=== PATIENT | female | born 1965 | race Caucasian/White ===

== ENCOUNTER 2020-01-25 15:13 | Emergency (ER) | payer OTHER ==
--- OUTSIDE RECORDS SUMMARY | 2020-01-25 15:19 | XMS REPORT ---
:1965 Author Organization eClinicalWorks Care Team Providers Name Role Phone Ruelas, Na Provider Role Unavailable Allergies No Known Allergies Problems Problem Type Condition Code Onset Dates Condition Statu s Problem Type 2 diabetes mellitus with E11.40 Active diabetic neuropathy, unspecified Problem Other chronic pain G89.29 Active Problem Sinus problem J34.9 Active Problem Acquired hypothyroidism E03.9 Acti ve Problem Depression F32.9 Active Problem Seizures R56.9 Active Problem Lumbar degenerative disc disease M51.36 Active Problem Gallstones K80.20 Active Problem Mixed hyperlipidemia E78.2 Active Problem Memory problem R41.3 Active Problem Depression with anxiety F41.8 Acti ve Problem Allergic rhinitis J30.9 Active Problem Essential hypertension I10 Activ e Problem Anxiety F41.9 Active Problem Diabetes E11.9 Active Problem Gastroesophageal reflux disease, K21.9 Active esophagitis presence not specified Problem Chronic obstructive pulmonary J44.9 Active disease, unspecified COPD type Problem Cigarette nicotine dependence with F17.219 Active nicotine-induced disorder Problem Varicose veins of bilateral lower I83.813 Active extremities with pain Problem Mixed stress and urge urinary N39.46 Active incontinence Problem Type 2 diabetes mellitus with E11.65 Active hyperglycemia Medications Medication Code System Code Instructions Start End Date Status Dos age Date Ursodiol [facility] 07993474350 250 MG Orally Nov 16, Active 1 ta blet Once a day 2019 with food Results No Known Results Summary Purpose eClinicalWorks Submission
--- OUTSIDE RECORDS SUMMARY | 2020-01-25 15:19 | XMS REPORT ---
:1965 Author Organization eClinicalWorks Care Team Providers Name Role Phone Ruelas, Jessa Provider Role Unavailable Allergies, Adverse Reactions, Alerts Substance Reaction Event Type N.K.D.A. Info Not Available Non Drug Allergy Problems Problem Type Condition Code Onset Dates Condition Statu s Assessment Lumbar degenerative disc disease M51.36 Active Assessment Gallstones K80.20 Active Assessment Other chronic pain G89.29 Active Assessment Left hip pain M25.552 Active Assessment Low back pain M54.5 Active Assessment Mixed stress and urge urinary N39.46 Active incontinence Assessment Acquired hypothyroidism E03.9 Acti ve Assessment Chronic obstructive pulmonary J44.9 Active disease, unspecified COPD type Assessment Recurrent boils L02.93 Active Problem Varicose veins of bilateral lower I83.813 Active extremities with pain Assessment Depression with anxiety F41.8 Acti ve Problem Type 2 diabetes mellitus with E11.65 Active hyperglycemia Assessment Type 2 diabetes mellitus with E11.65 Active hyperglycemia Problem Type 2 diabetes mellitus with E11.40 Active diabetic neuropathy, unspecified Problem Other chronic pain G89.29 Active Problem Sinus problem J34.9 Active Problem Acquired hypothyroidism E03.9 Acti ve Problem Seizures R56.9 Active Problem Depression F32.9 Active Problem Lumbar degenerative disc disease M51.36 Active Assessment Type 2 diabetes mellitus with E11.40 Active diabetic neuropathy, unspecified Problem Gallstones K80.20 Active Problem Mixed hyperlipidemia [...] dependence with F17.219 Active nicotine-induced disorder Problem Mixed stress and urge urinary N39.46 Active incontinence Medications Medication Code Code Instructions Start End Status Dosage System Date Date Nebulizer Air [facility] 63390391919 - use every 8 Feb 03, Active as directed Tube/Plugs hours as needed 2019 Keflex [facility] 30958475684 500 MG Orally Nov Active 1 caps ule every 12 hrs 2019 Celecoxib ND 22176727630 200 MG Orally Active 1 ca psule Once a day with food Pantoprazole [facility] 52874013875 40 MG Active TAKE 1 TABLET Sodium BY MOUTH EVERY DAY Albuterol ND 48576693259 (2.5 MG/3ML) Active 3 ml as Sulfate 0.083% needed Inhalation every 8 hrs Levothyroxine ND 61579694959 75 MCG Orally Active 1 tablet in Sodium Once a day the morning on an empty stomach Triamcinolone ND 14429130890 0.5 % Apr 23, Active 1 appl ication Acetonide Externally 2019 to affected Twice a day area Janumet [facility] 71059297973 50-1000 MG Active 1 tablet with Orally Twice a meals day BusPIRone HCl ND 76872065611 15 MG Orally Active 1 tablet Twice a day Ursodiol [facility] 01807322540 300 MG Orally Active as di rected Once a day Gabapentin ND 59721611635 300 MG Orally Active 1 c apsule twice a day Aspir-Low ND 39282506900 81 MG Orally Active 1 tab let Once a day Oxybutynin ND 10803432958 5 MG Orally Active 1 tab let Chloride Twice a day Levothyroxine [facility] 18883703471 75 MCG Active TAKE 1 TABLET Sodium BY MOUTH EVERY DAY IN THE MORNING ON AN EMPTY STOMACH Trintellix [facility] 50953465296 20 MG Orally Active 1 ta blet Once a day Bactrim DS [facility] 95533880273 800-160 MG Nov Active 1 tabl et Orally Twice a 2019 Ursodiol ND 16326507121 250 MG Orally [place] Active 1 tab let with Once a day 2019 Ursodiol ND 56676346947 250 MG Orally Nov Active 1 tab let with Once a day 2019 Results No Known Results Summary Purpose eClinicalWorks Submission
--- OUTSIDE RECORDS SUMMARY | 2020-01-25 15:19 | XMS REPORT | Continuity of Care Document ---
:1965 Author Organization [facility] t Address [address] [place] [address] Care Team Providers Name Role Phone Unavailable Unavailable Unavailable Problems This patient has no known problems. Allergies, Adverse Reactions, Alerts This patient has no known allergies or adverse reactions. Medications Ordered Filled Start Stop Current Ordering Indication Dosage Frequency Signature Comments Components Source Medication Medication Date Date Medication? Clinician (SIG) Name Name Keflex Keflex 2020- Yes Na Ruelas [address] [facility] Bactrim DS Bactrim DS 2019- Yes Na Ruelas [address] [facility] Ursodiol Ursodiol Yes Na Ruelas [address] [facility] with food [facility] Triamcinolo Triamcinolo Yes Na Ruelas [address] [facility] ne ne 2-14 applicatio [facility] - Acetonide Acetonide 00:00: n to Mem [facility] 00 affected l area Outpati ent Clinics Nebulizer Nebulizer Yes Na Ruelas as [facility] Air Air [facility]-03 directed [facility] - Tube/Plugs Tube/Plugs 00:00: M [facility] 00 [facility] Celecoxib Celecoxib Yes Na Ruelas [address] [facility] food [facility] Pantoprazol Pantoprazol Yes Na Ruelas TAKE [address] [facility] e Sodium e Sodium TABLET BY Nithya kes - MOUTH [facility] EVERY DAY [facility] Albuterol Albuterol Yes Na Ruelas [address] [facility] Sulfate Sulfate needed [facility] Levothyroxi Levothyroxi Yes Na Ruelas TAKE [address] [facility] ne Sodium ne Sodium TABLET BY [facility] - MOUTH [facility] EVERY DAY l IN THE Outpati MORNING ON ent AN EMPTY Clinics STOMACH Janumet Janumet Yes Na Ruelas [address] [facility] with meals [facility] BusPIRone BusPIRone Yes Na Ruelas [address] [facility] HCl HCl [facility] Ursodiol Ursodiol Yes Na Ruelas as [facility] directed [facility] Gabapentin Gabapentin Yes Na Ruelas [address] [facility] Aspir-Low Aspir-Low Yes Na Ruelas [address] [facility] Oxybutynin Oxybutynin Yes Na Ruelas [address] [facility] Trintellix Trintellix Yes Na Ruelas [address] [facility] Immunizations Ordered Filled Immunization Date Status Comments [facility] e Immunization Name Name Fluzone Fluzone 2019-04-[address] [facility] Procedures This patient has no known procedures. Encounters Start End Encounter Admission Attending Care Care Encounter Source Date/Time Date/Time Type Type Clinicians Facility Department ID 2020-01-14 2020-01-14 [id number] 2019-11-23 2019-11-23 Outpatient Ravinder Castro [id number] [facility] 11:00:00 11:00:00 [facility] [employer] [facility] 2019-11-16 2019-11-16 Outpatient Ravinder Castro [id number] [facility] 09:52:00 09:52:00 [facility] [employer] [facility] 2019-08-30 2019-08-30 Outpatient Ravinder [place] [id number] [facility] 08[facility]49[facility] [place] Clin[facility] 2019-08-18 2019-08-18 [facility] [id number] [facility] 09:40:00 09:40:[facility] t [employer] [facility] - [facility] Medicine Outpati ent Clinics 2019-08-10 2019-08-10 [facility] [id number] [facility] 14:31:00 14:31:00 t [employer] [facility] [place] [facility] Medicine Outpati ent Clinics 2019-08-07 2019-08-07 [facility] [id number] [facility] 07:31:00 07:31:00 t [employer] [facility] [place] [facility] Medicine Outpati ent Clinics 2019-08-06 2019-08-06 [facility] [id number] [facility] 09:20:00 09:20:00 t [employer] [facility] [place] [facility] Medicine Outpati ent Clinics 2019-04-30 2019-04-30 [facility] [id number] [facility] 16:02:00 16:02:00 t [employer] [facility] [place] [facility] Medicine Outpati ent Clinics 2019-04-15 2019-04-15 [facility] [id number] [facility] 10:26:00 10:26:00 t [employer] [facility] [place] [facility] Medicine Outpati ent Clinics 2019-04-12 2019-04-12 [facility] [id number] [facility] 09:27:00 09:27:00 t [employer] [facility] Medicine Outpati ent Clinics 2019-04-02 2019-04-02 [facility] [id number] 08:40:00 08:40:00 t [employer] [facility] Outpat[facility] ent Clinics 2019-04-01 2019-04-01 [facility] [id number] [facility] 11:20:00 11:20:00 t [employer] [facility] [place] [facility] Outpati ent Clinics Results This patient has no known results.
--- OUTSIDE RECORDS SUMMARY | 2020-01-25 15:19 | XMS REPORT ---
:[address] [facility] Address [address] [place] [address] Care Team Providers Name Role Phone Jessa Ruelas Unavailable [phone] PROBLEMS Type Condition ICD9-CM NCR75-YR Onset Condition SNOMED Code Notes Code Code Dates Status Problem Essential I10 Active 68514686 hypertension Problem Allergic rhinitis J30.9 Active 59866787 Problem Mixed stress and N39.46 Active 094768696 urge urinary incontinence Problem Cigarette nicotine F17.219 Active 60905035 dependence with nicotine-induced disorder Problem Chronic J44.9 Active 19157715 obstructive pulmonary disease, unspecified COPD type Problem Gastroesophageal K21.9 Active 078920686 reflux disease, esophagitis presence not specified Problem Type 2 diabetes E11.65 Active 490274404007834 mellitus with hyperglycemia Problem Varicose veins of I83.813 Active 41755394 bilateral lower extremities with pain Problem Other chronic pain G89.29 Active 58492759 Problem Mixed E78.2 Active 080032794 hyperlipidemia Problem Gallstones K80.20 Active 975356215 Problem Lumbar M51.36 Active 20028653 degenerative disc disease Problem Sinus problem J34.9 Active Problem Anxiety F41.9 Active 63343877 Problem Acute bronchitis, J20.9 Active 51132480 unspecified organism Problem Type 2 diabetes E11.40 Active 24971662 mellitus with diabetic neuropathy, unspecified Problem Depression F32.9 Active 16912040 Problem Diabetes E11.9 Active 443095229 Problem Depression with F41.8 Active 346331790 anxiety Problem Memory problem R41.3 Active 612477580 Problem Seizures R56.9 Active 02152221 Problem Acquired E03.9 Active 359650347 hypothyroidism ALLERGIES No Known Allergies ENCOUNTERS from 1965 to 2020-01-23 Encounter Location Date Provider Diagnosis [facility] [address], Jessa Rees te bronchitis, Family Medicine [address], [place] [address] J20.9 ; Allerg ic rhinitis J30.9 ; Chronic obstruc tive pulmonary disea se, unspecified [employer] D type J44.9 and Cigar ette nicotine depend ence with nicotine-i nduced disorder F17.21 9 IMMUNIZATIONS Vaccine Route Administration Date Status Fluzone IM Intramuscular Apr 02, 2019 Administered SOCIAL HISTORY Tobacco Use: Social History Observation Description Date Details (start date - stop date) Current Smoker Sex Assigned At : Social History Observation Description Sex Assigned At Unknown PHQ9 Question Answer Notes Little interest or pleasure in doing things Several days Feeling down, depressed, or hopeless More than half the days Trouble falling or staying asleep or sleeping too much Sever al days Feeling tired or having little energy Nearly every day Poor appetite or overeating Several days Feeling bad about yourself, or that you are a failure, Sever al days or have let yourself or your family down Trouble concentrating on things, such as reading the Several days newspaper or watching television Moving or speaking so slowly that other people could Not at all have noticed; or the opposite, being so fidgety or restless that you have been moving around a lot more than usual Total Score 10 Interpretation Moderate Depression Thoughts that you would be better off or of Not at all hurting yourself in some way Tobacco Use/Smoking Question Answer Notes Are you a current smoker How many cigarettes a day do you smoke? 11-20 How often do you smoke cigarettes? every day REASON FOR REFERRAL No Information VITAL SIGNS No information MEDICATIONS Medication SIG (Take, Route, Start Date End Date Status Frequency, Duration) Aspir-Low 81 MG 1 tablet Orally Once a Ac tive day for 30 day(s) Oxybutynin Chloride 5 MG 1 tablet Orally Twice a Active day for 90 days Nebulizer Air Tube/Plugs as directed use every 8 Apr, Not-Taking - hours as needed for 90 days Ursodiol 300 MG as directed Orally Once A ctive a day for 90 days BusPIRone HCl 15 MG 1 tablet Orally Twice a Active day for 90 days Gabapentin 300 MG 1 capsule Orally twice Active a day for 90 days Levothyroxine Sodium 75 1 tablet in the morning Active MCG on an empty stomach Orally Once a day for 90 days Flonase 50 MCG/ACT 2 spray in each nostril Jan, Active Nasally Once a day for 30 day(s) Ursodiol 250 MG 1 tablet with food Nov, Active Orally Once a day for 30 day(s) Trintellix 20 MG 1 tablet Orally Once a A ctive day for 90 days Pantoprazole Sodium 40 MG TAKE 1 TABLET BY MOUTH Active EVERY DAY for 90 Albuterol Sulfate (2.5 3 ml as needed Act patt MG/3ML) 0.083% Inhalation every 8 hrs for 90 days PredniSONE 20 MG 2 tablets dailyx 5 days Jan, Jan, Active then 1 tablet daily x 5 days Orally for 10 day(s) Celecoxib 200 MG 1 capsule with food Acti ve Orally Once a day for 90 days Levothyroxine Sodium 75 TAKE 1 TABLET BY MOUTH Active MCG EVERY DAY IN THE MORNING ON AN EMPTY STOMACH for 90 Triamcinolone Acetonide 1 application to Apr, Active 0.5 % affected area Externally Twice a day for 7 day(s) Janumet 50-1000 MG 1 tablet with meals Ac tive Orally Twice a day for 90 days Cetirizine HCl 10 MG 1 tablet Orally Once a Jan, Active day in AM for 90 day(s) Ursodiol 250 MG 1 tablet with food Aug, Active Orally Once a day for 90 days PROCEDURES No Information RESULTS No Results REASON FOR VISIT Congestion , allergies, current smoker, Telephone Only Visit MEDICAL (GENERAL) HISTORY Type Description Date Medical History Allergic rhinitis Medical History Depression Medical History Gallstones Medical History Memory problem Medical History Anxiety Medical History Diabetes Medical History Seizures Medical History Sinus problem Surgical History frontal lobe contusion 1992 Surgical History gallbladder removed 1995 Surgical History breast reduction 1996 Surgical History heel spur removed 1999 Surgical History plastic surgery on left ear 1993 Goals Section No Information Health Concerns No Information MEDICAL EQUIPMENT No Information MENTAL STATUS No Information FUNCTIONAL STATUS No Information ASSESSMENTS Encounter Date Diagnosis Notes Jan, Chronic obstructive pulmonary disease, u nspecified COPD type (ICD-10 - J44.9) Jan, Allergic rhinitis (ICD-10 - J30.9) Jan, Cigarette nicotine dependence with nicot ine-induced disorder (ICD-10 - F17.219) Jan, Acute bronchitis, unspecified organism ( ICD-10 - J20.9) PLAN OF TREATMENT Medication Medication Name Sig Start Date Stop Date PredniSONE 20 MG 2 tablets dailyx 5 days then 1 tablet Jan, 020 Jan, daily x 5 days Orally for 10 day(s) Flonase 50 MCG/ACT 2 spray in each nostril Nasally Once a Jan day for 30 day(s) Cetirizine HCl 10 MG 1 tablet Orally Once a day in AM for Jan 90 day(s) Treatment Notes Assessment Notes Clinical Notes Acute bronchitis, unspecified Take any cough medications giv en as organism prescribed. Take otc mucinex to help loosen an chest congestion and take with plenty of water. Use cool mist vaporizer/inhaler/or nebulizer as directed.See educational handout . Allergic rhinitis Allergies- avoid triggers. Use zyrtec or claritin otc once daily in AM to help control watery itchy eyes and runny nose. Use Flonase nasal spray two sprays once a day to help decrease inflammation and decrease nasal drainage/post nasal drip. Use saline nasal mist or irrigation as directed. Chronic obstructive pulmonary continue current inhalers/ disease, unspecified COPD type nebulizer . if you develop so b or cough with increase phlegm or sputum changes from clear to yellow or green or develop fever above 100.4F call PCP or go to ER. Quit smoking and avoid exacerbating factors including second hand smoke or fumes. Cigarette nicotine dependence with recommend smoking cessati on/ nicotine-induced disorder cutting back to decrease risk of lung cancer, bladder cancer and improved breathing and decrease risk of heart disease. Consider tyring nicotine patches, gum or lonzenges. Also consider prescription chantix to help you quit.-- Greater than 3 minutes was spend counseling patient on importance and benefits of quitting smoking. Next Appt Details keep next appt Reason: Provider Name:Jessa Ruelas 2020-02-17 08:3 0:00 AM, [address], [place], [address], Provider Name:Jessa Ruelas 2020-02-22 11:2 0:00 AM, [address], [place], [address], Insurance Providers Payer Name Payer Address Payer Insured Patient Coverage Cover age End Phone Name Relationship to Start Date Ravinder e Insured [employer] [address] [address] [phone] Brandee Rajan 2019 [place]IC[place] [id number] MEDICAID [address] [phone] Brandee Rajan 2018 [facility] 126 [phone]
[2020-01-25] MEDS ORDERED: NA CHLORIDE 0.9% 1,000 ML ONE (18:05)
[2020-01-25 18:06] LABS: Absolute Lymphocytes (CBC) 2.8 K/uL (0.7-4.9); Basophils % 0.6 % (0-1.3); Hematocrit 45.9 % (36.0-45.0); Lymphocytes % 16.1 % (15.3-44.8); MPV 10.1 fL (7.6-11.3); RBC Red Blood Cell Count 5.15 M/uL (3.86-4.86)
[2020-01-25] MEDS ORDERED: LIDOCAINE 1% 20 ML MDV ONE (18:07)
[2020-01-25 18:24] LABS: Potassium 3.9 mmol/L (3.5-5.1)
[2020-01-25] MEDS ORDERED: INSULIN -REGULAR HUMAN 50 UNIT/0.5 ML ML ONE (18:55)
[2020-01-25] MEDS ORDERED: LIDOCAINE 1% W/EPI 1:100,000 MDV 20 ML VIAL ONE (19:18)
[2020-01-25] MEDS ORDERED: CLINDAMYCIN 900MG/D5W 900 MG/50 ML IVPB IV ONE (19:26)
--- NOTE | 2020-01-25 19:47 | EDPHYS ---
Physician Documentation [facility] Name: Brandee Rajan Age: 54 yrs Sex: Female : 1965 Arrival Date: 01/25/2020 Time: 15:15 Bed 6 Private MD: ED Physician Chauncey Howell HPI: 01/24 17:20 This 54 yrs old Female presents to ER via Ambulatory with complaints of jmm Abscess. 17:20 The patient presents with an abscess of the groin. Onset: The symptoms/episode jmm began/occurred gradually. Possible cause(s): unknown. Associated signs and symptoms: Pertinent positives: swelling, Pertinent negatives: fever. Modifying factors: the symptoms are alleviated by nothing, the symptoms are aggravated by nothing. This is a 54 year old female with a history of dm, that presents to the ED with complaints of multiple abscess in the groin. Denies fever. Patient states she was prescribed an abx which offered transient relief. . 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 - Social history:: Smoking status: Patient reports the use of cigarette tobacco products, smokes one pack cigarettes per day. ROS: 17:20 Constitutional: Negative for fever, chills, and weight loss, Cardiovascular: Negative jmm for chest pain, palpitations, and edema, Respiratory: Negative for shortness of breath, cough, wheezing, and pleuritic chest pain. 17:20 Skin: Positive for abscess. 17:20 All other systems are negative. Exam: 17:20 Constitutional: This is a well developed, well nourished patient who is awake, alert, jmm and in no acute distress. Head/Face: atraumatic. Eyes: EOMI, no conjunctival erythema appreciated ENT: Moist Mucus Membranes Neck: Trachea midline, Supple Chest/axilla: Normal chest wall appearance and motion. Cardiovascular: Regular rate and rhythm. No edema appreciated Respiratory: Normal respirations, no respiratory distress appreciated Abdomen/GI: Non distended, soft Back: Normal ROM 17:20 Skin: multiple abscess nonfluctuant noted to the suprapubic region, a small fluctuant abscess noted to the right thigh. 17:20 Neuro: Orientation: is normal, Mentation: is normal, Memory: is normal. 17:20 Psych: Behavior/mood is pleasant, cooperative. Vital Signs: 15:45 BP 141 / 80; Pulse 89; Resp 17; Temp 97.0; Pulse Ox 99% ; Weight 92.99 kg; Height 5 ft. ss 4 in. (162.56 cm); Pain 8/10; 18:00 BP 132 / 78; Pulse 86; Resp 18; Pulse Ox 99% on R/A; ph 19:00 BP 130 / 80; Pulse 84; Resp 18; Pulse Ox 99% on R/A; zb 15:45 Body Mass Index 35.19 (92.99 kg, 162.56 cm) ss Procedures: 19:44 I \T\ D: Incision and drainage was performed for an abscess of the right groin Prepped [facility] with Betadine, Anesthetized with 5 ml's 1% Lidocaine. Incised with #11 blade. Drained small amount purulent fluid. Packed with iodoform gauze, Dressing: sterile 4x4 gauze, the patient tolerated the procedure well. MDM: 17:20 Patient medically screened. [facility] 19:44 Data reviewed: vital signs, nurses notes. Counseling: I had a detailed discussion with [facility] the patient and/or guardian regarding: the historical points, exam findings, and any diagnostic results supporting the discharge/admit diagnosis, lab results, the need for outpatient follow up, to return to the emergency department if symptoms worsen or persist or if there are any questions or concerns that arise at home. ED course: Patient is alert and non toxic in appearance in the ED. Advised to follow up with pcp and otherwise given strict return precautions. Patient understood and agrees with the plan of care. . 01/24 17:30 Order name: CBC with Diff; Complete Time: 18:10 [facility] 01/24 17:30 Order name: BMP; Complete Time: 18:25 [facility] 01/24 17:30 Order name: Saline Lock; Complete Time: 17:59 [facility] Administered Medications: 17:59 Drug: NS 0.9% 1000 ml Route: IV; Rate: 1 bolus; Site: right antecubital; ph 19:55 Follow up: IV Status: Completed infusion rv 18:40 Drug: Insulin Regular Human 10 units {Co-Signature: ph (Kailey Hays RN).} Route: IVP; hb Site: right antecubital; 19:55 Follow up: Response: No adverse reaction; Blood sugar is lowered rv 18:42 Drug: Lidocaine (1 %) 20 ml Volume: 20 ml; Route: Infiltration; hb 18:52 Follow up: Response: No adverse reaction hb 19:13 Drug: Clindamycin 900 mg Route: IVPB; Infused Over: 30 mins; Site: right antecubital; ph 19:55 Follow up: IV Status: Completed infusion rv 19:53 Drug: DiFLUcan 150 mg Route: PO; rv 19:53 Follow up: Response: Medication administered at discharge. rv Disposition: 01/25 08:30 Co-signature as Attending Physician, Chauncey Howell MD I agree with the assessment and kdr plan of care. Disposition: 01/25/20 19:47 Discharged to Home. Impression: Cutaneous abscess of groin. - Condition is Stable. - Discharge Instructions: Skin Abscess, Incision and Drainage, Care After. - Prescriptions for Clindamycin HCl 300 mg Oral Capsule - take 1 capsule by ORAL route every 6 hours for 10 days; 40 capsule. Bactrim DS 800- 160 mg Oral Tablet - take 1 tablet by ORAL route every 12 hours for 10 days; 20 tablet. - Medication Reconciliation Form, Thank You Letter, Antibiotic Education, Prescription Opioid Use form. - Follow up: Private Physician; When: 2 - 3 days; Reason: Recheck today's complaints, Continuance of care, Re-evaluation by your physician. Signatures: Dispatcher [employer] [facility] Chauncey Howell MD MD kdr Mickail, Joel, PA PA jmm Smirch, Shelby, RN RN Kailey Hays RN RN Tamie Lee RN RN Henry Olivares RN RN Kailey Hays RN ph Corrections: (The following items were deleted from the chart) 01/24 19:55 19:47 01/25/2020 19:47 Discharged to Home. Impression: Cutaneous abscess of groin. rv Condition is Stable. Forms are Medication Reconciliation Form, Thank You Letter, Antibiotic Education, Prescription Opioid Use. Follow up: Private Physician; When: 2 - 3 days; Reason: Recheck today's complaints, Continuance of care, Re-evaluation by your physician. randym
--- NOTE | 2020-01-25 19:47 | ER ---
Nurse's Notes [facility] Name: Brandee Rajan Age: 54 yrs Sex: Female : 1965 Arrival Date: 01/25/2020 Time: 15:15 Bed 6 Private MD: Diagnosis: Cutaneous abscess of groin Presentation: 01/24 15:45 Chief complaint: Patient states: Abscesses to pelvic area, perineum for 1 week. Had one ss 2 weeks ago that she took antibiotics for. Some sites are draining. No fever. Coronavirus screen: Client denies travel out of the [place] in the last 14 days. congestion, cough unrelated to allergies, Client presents with at least one sign or symptom that may indicate coronavirus-19. Standard/surgical mask placed on the client. The client reports previous COVID testing was negative. Ebola Screen: Patient denies travel to an Ebola-affected area in the 21 days before illness onset. Initial Sepsis Screen: Does the patient meet any 2 criteria? No. Patient's initial sepsis screen is negative. Does the patient have a suspected source of infection? Yes: Skin breakdown/wound. Risk Assessment: Do you want to hurt yourself or someone else? Patient reports no desire to harm self or others. Onset of symptoms was January 18, 2020. 15:45 Method Of Arrival: Ambulatory ss 15:45 Acuity: ONELIA 3 ss ACCOUNTANT TAX: 17:40 LMP N/A - Post-menopause zb Historical: - Allergies: 15:49 No Known Allergies; ss - PMHx: 15:49 Diabetes - NIDDM; Head injury; ss - PSHx: 15:49 Cholecystectomy; ss - Immunization history:: Flu vaccine is up to date. - Social history:: Smoking status: Patient reports the use of cigarette tobacco products, smokes one pack cigarettes per day. Screenin:34 Abuse screen: Denies threats or abuse. Denies injuries from another. Nutritional ph screening: No deficits noted. Nutritional screening: No deficits noted. Tuberculosis screening: No symptoms or risk factors identified. Fall Risk None identified. Assessment: 17:33 General: Appears in no apparent distress. Behavior is calm, cooperative, appropriate zb for age. Neuro: Level of Consciousness is awake, alert, obeys commands, Oriented to person, place, time, situation. Cardiovascular: Capillary refill < 3 seconds in bilateral fingers. Respiratory: Airway is patent Respiratory effort is even, unlabored. GI: Abdomen is round obese, Abd is soft and non tender X 4 quads. : Reports incontinence. EENT: Derm: Skin is healthy with good turgor, Skin is pink, warm \T\ dry. Abscess located on groin is nickel sized, is red, is raised, x3 abscess. two dime size abscess on left pubic mons area and then arjun size on the right pubic mons area. Musculoskeletal: Circulation, motion, and sensation intact. 18:23 Reassessment: Patient appears in no apparent distress at this time. Patient and/or hb family updated on plan of care and expected duration. Pain level reassessed. Patient is alert, oriented x 3, equal unlabored respirations, skin warm/dry/pink. Vital Signs: 15:45 BP 141 / 80; Pulse 89; Resp 17; Temp 97.0; Pulse Ox 99% ; Weight 92.99 kg; Height 5 ft. ss 4 in. (162.56 cm); Pain 8/10; 18:00 BP 132 / 78; Pulse 86; Resp 18; Pulse Ox 99% on R/A; ph 19:00 BP 130 / 80; Pulse 84; Resp 18; Pulse Ox 99% on R/A; zb 15:45 Body Mass Index 35.19 (92.99 kg, 162.56 cm) ss ED Course: 15:15 Patient arrived in ED. as 15:48 Triage completed. ss 15:49 Arm band placed on. ss 17:18 Elias Watkins PA is PHCP. [facility] 17:19 Chauncey Howell MD is Attending Physician. [facility] 17:19 Patricia Armstrong, ARTHUR is Primary Nurse. zb 17:34 Patient has correct armband on for positive identification. Placed in gown. Bed in low ph position. Call light in reach. Pulse ox on. NIBP on. Door closed. Noise minimized. Warm blanket given. Head of bed. 17:45 Initial lab(s) drawn, by me, sent to lab. Inserted saline lock: 20 gauge in right ph antecubital area, using aseptic technique. Blood collected. 18:53 Assist provider with I \T\ D: of an abscess on right groin Set up I\T\D tray. Performed by sandra OLIVO Wound packed. iodoform gauze, Dressing with 4X4s, tape Patient tolerated well. Administered Medications: 17:59 Drug: NS 0.9% 1000 ml Route: IV; Rate: 1 bolus; Site: right antecubital; ph 19:55 Follow up: IV Status: Completed infusion rv 18:40 Drug: Insulin Regular Human 10 units {Co-Signature: ph (Kailey Hays RN).} Route: IVP; hb Site: right antecubital; 19:55 Follow up: Response: No adverse reaction; Blood sugar is lowered rv 18:42 Drug: Lidocaine (1 %) 20 ml Volume: 20 ml; Route: Infiltration; hb 18:52 Follow up: Response: No adverse reaction hb 19:13 Drug: Clindamycin 900 mg Route: IVPB; Infused Over: 30 mins; Site: right antecubital; ph 19:55 Follow up: IV Status: Completed infusion rv 19:53 Drug: DiFLUcan 150 mg Route: PO; rv 19:53 Follow up: Response: Medication administered at discharge. rv Outcome: 19:47 Discharge ordered by MD. peace 19:55 Patient left the ED. rv Signatures: Elias Watkins PA PA jmm Martinez, Amelia as Smirch, Shelby, RN RN Kailey Hays RN RN ph Tamie Lee RN RN Henry Olivares, RN RN Patricia Armstrong RN RN zb Kailey Hays RN ph
[2020-01-25] MEDS ORDERED: FLUCONAZOLE 100 MG TAB ONE (20:03)
[2020-01-26 04:15] VITALS: TEMP 97; O2SAT 99
[2020-01-26 04:18] VITALS: BP 130/80
== END 2020-01-25 19:55 | disposition home or self-care (01) ==
LOC: ER 15:13
PROC: 0J9C0ZZ Drainage of Pelvic Region Subcutaneous Tissue and Fascia, Open Approach (ICD-10-PCS; principal; 2020-01-25)
DX: L02.214 Cutaneous abscess of groin (principal); E11.9 Type 2 diabetes mellitus without complications; F17.210 Nicotine dependence, cigarettes, uncomplicated
CPT/HCPCS: 96365; 96361; 85025; 80048; 36415; 82947; 96375; 99284; 10060; J7030

== ENCOUNTER 2020-04-30 01:43 | Emergency (ER) | payer OTHER ==
--- OUTSIDE RECORDS SUMMARY | 2020-04-30 01:47 | XMS REPORT | Continuity of Care Document ---
:1965 Author Organization [facility] t Address [address] [place] [address] Care Team Providers Name Role Phone Unavailable Unavailable Unavailable Payers Payer Name Policy Type Policy Number Effective Date Expiration Date S ource Problems This patient has no known problems. Allergies, Adverse Reactions, Alerts Allergy Allergy Status Severity Reaction(s) Onset Inactive Treating Comm ents Source Name Type Date Date Clinician samantha DA Active [facility]- [place] 00:00: [address] ragweed DA [facility] pollen 04-06 [place] 00:00: [address] No Known DA Active [facility] 2019-[facility] Allergie - [place] s 00:00: [address] Medications Ordered Filled Start Stop Current Ordering Indication Dosage Frequency Signature Comments Components Source Medication Medication Date Date Medication? Clinician (SIG) Name Name Keflex Keflex 2020- No Na Ruelas [address] [facility] Bactrim DS Bactrim DS 2019- No Na Ruelas [address] [facility] 00 :00 [facility] Ursodiol Ursodiol Yes Na Ruelas [address] [facility] 9[facility]09 with food [facility] - 00:[facility]: [facility] 00 [facility] Triamcinolo Triamcinolo Yes Na Ruelas [address] [facility] ne ne 2-14 applicatio [facility] - Acetonide Acetonide 00:00: n to Mem oria 00 affected l area [facility] Nebulizer Nebulizer Yes Na Ruelas as [facility] Air Air 2-03 directed [facility] - Tube/Plugs Tube/Plugs 00:00: M emoria 00 l [facility] Celecoxib Celecoxib Yes Na Ruelas [address] [facility] with food [facility] Pantoprazol Pantoprazol Yes Na Ruelas TAKE [address] [facility] e Sodium e Sodium TABLET BY Nithya kes - MOUTH [facility] EVERY DAY l [facility] Albuterol Albuterol Yes Na Ruelas [address] [facility] Sulfate Sulfate needed [facility] Levothyroxi Levothyroxi Yes Na Ruelas TAKE [address] [facility] ne Sodium ne Sodium TABLET BY [facility] - MOUTH [facility] EVERY DAY l IN THE [facility] MORNING ON ent AN EMPTY Clinics STOMACH Janumet Janumet Yes Na Ruelas [address] with meals [facility] BusPIRone BusPIRone Yes Na Ruelas [address] [facility] HCl HCl [facility] Ursodiol Ursodiol Yes Na Ruelas as [facility] directed [facility] Gabapentin Gabapentin Yes Na Ruelas [address] [facility] Aspir-Low Aspir-Low Yes Na Ruelas [address] [facility] Oxybutynin Oxybutynin Yes Na Ruelas [address] [facility] Chloride Chloride [facility] Trintellix Trintellix Yes Na Ruelas [address] [facility] Immunizations Ordered Filled Immunization Date Status Comments Sourc e Immunization Name Name Fluzone Fluzone 2019-04-[address] [facility]00 [facility] Procedures This patient has no known procedures. Encounters Start End Encounter Admission Attending Care Care Encounter Source Date/Time Date/Time Type Type Clinicians Facility Department ID 2020-04-19 2020-04-19 Outpatient [facility] [id number] [facility] 2020-04-07 2020-04-07 Outpatient [facility] [id number] [facility] 2020-03-28 2020-03-28 Outpatient [facility] [id number] [facility] 2020-02-24 2020-02-24 Outpatient [facility] [id number] [facility] 2020-02-22 2020-02-22 Outpatient [facility] [id number] [facility] 2020-01-14 2020-01-14 Outpatient [facility] [id number] [facility] 2019-11-23 2019-11-23 [facility] [id number] [facility] 11:00:00 11:00:00 t [employer] s - Drive [facility] Outpati ent Clinics 2019-11-16 2019-11-16 [facility] [id number] 09:52:00 09:52:00 t [employer] s - Drive [facility] Out[facility] Clinics 2019-08-30 2019-08-30 [facility] [id number] 08:49:00 08:49:[address] [facility] [address] [employer] s - Road [facility] Medicine Outpati ent Clinics 2019-08-18 2019-08-18 [facility] [id number] 09:40:00 09:40:00 t [employer] s - Drive [facility] Medicine l Medicine Outpati ent Clinics 2019-08-10 2019-08-10 [facility] [id number] 14:31:00 14:31:00 t [employer] s - Drive [facility] Medicine Medicine Outpati ent Clinics 2019-08-07 2019-08-07 [facility] [id number] 07:31:00 07:31:00 t [employer] s - Drive [facility] Medicine Medicine Outpati ent Clinics 2019-08-06 2019-08-06 [facility] [id number] 09:20:00 09:20:00 t [employer] [employer] s - Drive [facility] Medicine l Medicine Outpati ent Clinics 2019-04-30 2019-04-30 [facility] [id number] 16:02:00 16:02:00 t Linden Lind[employer] s - Drive [facility] Medicine Medicine Outpati ent Clinics 2019-04-15 2019-04-15 [facility] [id number] 10:26:00 10:26:00 t [employer] s - Drive [facility] Medicine Medicine Outpati ent Clinics 2019-04-12 2019-04-12 [facility] [id number] 09:27:00 09:27:00 t [employer] Lind[employer] Zel[employer] s - Drive [facility] Medicine Medicine Outpati ent Clinics 2019-04-02 2019-04-02 [facility] [id number] 08:40:00 08:40:00 t [employer] s - Drive [facility] Medicine Medicine Outpati ent Clinics 2019-04-01 2019-04-01 [facility] [id number] 11:20:00 11:20:00 t [employer] s - Drive [facility] Medicine Medicine Outpati ent Clinics Results Test Description Test Time Test Comments Results Result Sourc e Comments - XR FLUORO FOR 2020-04-11 [facility]34[facility] 1965 Sex: F FAX: Luis Eisenberg MD [phone] [place]: St: REG Patient Name: SRINI JOSÉ Unit No: [id number] EXAMS: CPT CODE: [id number] XR FLUORO FOR SPINE INJ 39632 Location: T 18 INDICATION: ONELIA IMPRESSION: 12 seconds of intraoperative fluoroscopy provided for lumbar ONELIA. I was not present for or involved with the procedure or provided fluoroscopy. Please refer to the procedure note for details. Radiation dose 7 mGy (PSD). at 1434 Reported and signed by: Santino Golden M.D. CC: Luis Porter MD Dictated Date/Time: 04/11/2020 (2784)Technologist: Maurizio Perla Transcribed Date/Time: 04/11/2020 (1434) By: [email or web address] Orig Print D/T: S: 04/11/2020 (4581) JAY Treviño NAME: JOSÉ,SRINI [facility] PHYS: Luis Mora MD [address] [place], [place] [address]VD : 1965 AGE: 54 SEX: SARAH CHAVES [id number] LOC: MasterFlorinCHRISTINA PHONE #: [phone] EXAM DATE: 04/11/2020 STATUS: REG [facility] [place] [place] FAX #: [phone] RAD NO: DC Dt: PAGE 1 Signed Report GLUCOSE BEDSIDE TESTING 2020-04-11 11:35:00 Test Item Value Reference Range Interpretation Comme nts GLUCOSE BEDSIDE TESTING (test code = GLUBED) 189 MG/DL 70-119 H COVID Asymptomatic IH [id number] 12:52:00 Test Item Value Reference Interpretation Comments Range COVID Negative Negative A negative resu lt does not Asymptomatic IH preclude the SARS-COV-2 NTX (test code = viralinfect ion and should not COVNONPUINTX) be used as the sole basis forpatient umesh gement decisions. Nega tive results must becombined with clinical observations, p atient history, andepidemiologi lianna information. Vi ral levels in clinicalsamples below the detection limit of the assay could lead tone gative results. This test was p erformed using the Logix Smart TM COVID-19 PCRassay. This test was developed and i ts performancechar acteristics were determined by [facility]. Thi s test has notbeen FDA harjinder ared or approved. This test is authorized by t heFDA under Emergency Use Authorization(E UA). The EUA willremain in e ffect unless it is terminated o r revoked by FDA . Testing p arameters have not been valida debra for screeningasympt omatic patients. This test was validated accor ding to the FDA's guidanced ocument "Policy for Diagnostics testing in LaboratoriesCer tified to Perform High Co mplexity Testing under C JUAN ANTONIO". Specimen comments: PT IN PAT ROOM 3Specimen comments: PT IN PAT ROOM 3First test? UnknownEmployed inHealthcare? NoSymptomatic as defined by CDC? NoHospitalized due to COVID? NoIn ICU due to COVID? NoResident in a congregate care setting? No? NoAge at collection: YHCG SERUM [id number] 12:55:00 Test Item Value Reference Range Interpretation Comments HCG SERUM QUAL (test code = HCGQL) NEG SCREEN NEG Specimen comments: PT IN PAT ROOM 3Is this a LINE draw? NBASIC METABOLIC PANEL 2020-04-06 12:55:00 Test Item Value Reference Range Interpretation Comments SODIUM (test code = 140.0 mmol/L 133-144 N NA) POTASSIUM (test code 3.5 mmol/L 3.5-5.1 N = K) CHLORIDE (test code 106 mmol/L 95-105 H = CL) CARBON DIOXIDE (test 30 mmol/L 21-32 N code = CO2) ANION GAP (test code 4.0 GAP calc 4.0-15.0 N = GAP) GLUCOSE (test code = 157 MG/DL 70-110 H GLU) BLOOD UREA NITROGEN 10 MG/DL 7-18 N (test code = BUN) CREATININE (test 0.71 MG/DL 0.55-1.30 N Results may be code = CREAT) depressed if patient is takingN-Acetylc yste ine (NAC) and Metamizole (Dipyrone). CALCIUM (test code = 9.5 MG/DL 8.5-10.1 N CA) INDEX HEMOLYSIS 1 NORMAL <10 MG 1 NORMAL (test code = Index/DL HEMINDEX) INDEX ICTERIC (test 1 NORMAL <2 MG 1 NORMAL code = ICTINDEX) Index/DL INDEX LIPEMIA (test 1 NORMAL <50 MG 1 NORMAL code = LIPINDEX) Index/DL HGB [id number] 12:38:00 Test Item Value Reference Range Interpretation Comments RED BLOOD CELL (test code = RBC) 4.52 M/mm3 3.8-5.5 N HEMOGLOBIN (test code = HGB) 13.4 G/DL 10.6-15.8 N HEMATOCRIT (test code = HCT) 42.3 % 31.8-47.4 N MEAN CELL VOLUME (test code = MCV) 93.6 fL 80.1-101.1 N - XR CHEST 2 [id number] 12:21:00 [facility] : 1965 Sex: F FAX: Luis Eisenberg MD [phone] [place]: M St: PRE Patient Name: SRINI JOSÉ Unit No: [id number] EXAMS: CPT CODE: [id number] XR CHEST 2 V 23312 Site ID: [id number] HISTORY: Preoperative FINDINGS: The lungs are clear and normally expanded. The heart and pulmonary vasculature is normal. Osseous structures are unremarkable. IMPRESSION: Normal preoperative chest x-ray at 1221 Reported andsigned by: Santino Golden M.D. CC: Luis Porter MD Dictated Date/Time: 04/06/2020 (1221)Technologist: Smith Kamara Date/Time: 04/06/2020 (1221) By: [email or web address] Orig Print D/T: S: 04/06/2020 (7784) 508 Imaging NAME: SRINI JOSÉ [address] [place] [address] PHYS: Luis Mora MD [place], [place] : 1965 AGE: 54 SEX: F [id number] LOC: SHADI PHONE #: [phone] EXAM DATE: 04/06/2020 STATUS: PRE [facility] [place] [place] FAX #: [phone] RAD NO: DC Dt: PAGE 1 Signed ReportGLUCOSE BEDSIDE [id number] 07:49:00 Test Item Value Reference Range Interpretation Comments GLUCOSE BEDSIDE TESTING (test code 141 MG/DL 70-119 H = GLUBED) Novel Coronavirus 2019 [id number] 18:08:00 Test Item Value Reference Range Interpretation Comments Novel Coronavirus Not Detected Not Detected Testing wa s performed 2019 Inhouse (test using the Aptima code = COVNONPUI) SARS-CoV-2 assay.This nucleic acid amplification t est was developed and itsperformance characteristics determined by [facility]. Nucleic acid amplification t ests include PCRand TMA. This test has not be en FDA cleared or appr chintan.This test has been a uthorized by FDA under an Emergency UseAuthorizatio n (EUA). This test is on ly authorized fort he duration of joan e the declaration duncan t circumstancesex ist justifying the authorization o f the emergency use o fin vitro diagnostic test s for detection of SA RS-CoV-2 virusand/or frannie gnosis of COVID-19 infect ion under rslroag996(b)(1 ) of the Act, 21 U.S.C. 360bbb-3(b) (1) , unless theauthorizatio n is terminated or r evoked sooner.When frannie gnostic testing is nega tive, the possibility of afalse negative result should be considered i n the contextof a pat ient's recent exposure s and the presence ofclin ical signs and sympt oms consistent with COVID-19. Anind ividual without symptom s of COVID-19 and wh o is notshedding ADELAIDE S-CoV-2 virus would exp ect to have a negative (not detected) resul t in this assay.Performed At: [facility] [address] [id number] fady Gillis MD Ph:[phone] UR HCG [id number] 16:55:00 Test Item Value Reference Range Interpretation Comments UR HCG QUAL (test NEGATIVE NEG Very dilut e urines with a code = HCGQLU) low specific gravity may notcontain repr esentative levels of hCG. - XR CHEST 2 [id number] 16:55:00 [facility] : 1965 Sex: F FAX: Luis Eisenberg MD [phone] [place]: O St: PRE Patient Name: SRINI JOSÉ Unit No: [id number] EXAMS: CPT CODE: [id number] XR CHEST 2 V 19626 - XR CHEST 2 VLOCATION: T18 INDICATION:Preop, back pain The lungs are well expanded and free of infiltrates. The costophrenic recesses are sharp without effusion. The heart, mediastinum and bony structures are within normal limits. IMPRESSION: No active disease. at 1655 Reported and signed by: Zackery Argueta D.O. CC: Luis Porter MD Dictated Date/Time: 03/01/2020 (1654)Technologist: Hailey Phan Transcribed Date/Time: 03/01/2020 (1654) By: [email or web address] Orig Print D/T: S: 03/01/2020 (1657) [facility] NAME: ARNAVSRINI [facility] PHYS: Luis Mora MD [address] [place] [address] : 1965 AGE: 54 SEX: Diana TREVIÑO, SARAH [address] LOC: CARLEEN #: [phone] EXAM DATE: 03/01/2020 STATUS: PRE [facility] [place] [place] FAX #: [phone] RAD NO: DC Dt: PAGE 1 Signed ReportCOMPREHENSIVE METABOLIC [id number] 16:39:00 Test Item Value Reference Range Interpretation Comments SODIUM (test code = 140.0 mmol/L 133-144 N NA) POTASSIUM (test code 3.5 mmol/L 3.5-5.1 N = K) CHLORIDE (test code 105 mmol/L 95-105 N = CL) CARBON DIOXIDE (test 32 mmol/L 21-32 N code = CO2) ANION GAP (test code 3.0 GAP calc 4.0-15.0 L = GAP) GLUCOSE (test code = 140 MG/DL 70-110 H GLU) BLOOD UREA NITROGEN 6 MG/DL 7-18 L (test code = BUN) GLOMERULAR 103 estGFR >60 The estimated FILTRATION RATE glomerular (test code = GFR) filtration rate is computed usingpatient ra ce, age, sex, and s danial creatinine. If any of theneeded da ta elements are mi ssing the Laboratory can notcompute an estimation of t he glomerular filtration rate .The GFR value units = ml/min/1.73 met er squared. EstimatedGFR va lues above 60 should be interpreted as >60, not anexact number.--- DRUG DOSAGE ALERT -- - Drug dosage adjustments uti lize different calculationpara meter s. CREATININE (test 0.61 MG/DL 0.55-1.30 N Results may be code = CREAT) depressed if p atient is takingN-Acetylc ystei ne (NAC) and Metamizole (Dipyrone). TOTAL PROTEIN (test 7.2 G/DL 6.4-8.2 N code = PROT) ALBUMIN (test code = 3.5 G/DL 3.4-5.0 N ALB) ALBUMIN/GLOBULIN 0.9 RATIO 1.2-2.2 L RATIO (test code = A/G) CALCIUM (test code = 9.1 MG/DL 8.5-10.1 N CA) BILIRUBIN TOTAL 0.30 MG/DL 0.00-1.00 N (test code = BILT) BILIRUBIN DIRECT 0.12 MG/DL 0.00-0.30 N (test code = BILD) BILIRUBIN INDIRECT 0.18 MG/DL 0.2-1.3 L (test code = BILIND) SGOT/AST (test code 26 Unit/L 15-37 N = AST) SGPT/ALT (test code 51 Unit/L 12-78 N = ALT) ALKALINE PHOSPHATASE 97 Unit/L 45-117 N TOTAL (test code = ALKP) INDEX HEMOLYSIS 1 NORMAL <10 1 NORMAL (test code = MG Index/DL HEMINDEX) INDEX ICTERIC (test 1 NORMAL <2 MG 1 NORMAL code = ICTINDEX) Index/DL INDEX LIPEMIA (test 1 NORMAL <50 1 NORMAL code = LIPINDEX) MG Index/DL COMPREHENSIVE METABOLIC [id number] 16:34:00 Test Item Value Reference Range Interpretation Comments SODIUM (test code = NA) 140.0 mmol/L 133-144 N POTASSIUM (test code = K) 3.5 mmol/L 3.5-5.1 N CHLORIDE (test code = CL) 105 mmol/L 95-105 N CARBON DIOXIDE (test code 32 mmol/L 21-32 N = CO2) ANION GAP (test code = 3.0 GAP calc 4.0-15.0 L GAP) GLUCOSE (test code = GLU) 140 MG/DL 70-110 H BLOOD UREA NITROGEN (test 6 MG/DL 7-18 L code = BUN) CREATININE (test code = MG/DL 0.55-1.30 CREAT) TOTAL PROTEIN (test code G/DL 6.4-8.2 = PROT) ALBUMIN (test code = ALB) 3.5 G/DL 3.4-5.0 N ALBUMIN/GLOBULIN RATIO RATIO 1.2-2.2 (test code = A/G) CALCIUM (test code = CA) 9.1 MG/DL 8.5-10.1 N BILIRUBIN TOTAL (test MG/DL 0.00-1.00 code = BILT) BILIRUBIN DIRECT (test MG/DL 0.00-0.30 code = BILD) BILIRUBIN INDIRECT (test MG/DL 0.2-1.3 code = BILIND) SGOT/AST (test code = Unit/L 15-37 AST) SGPT/ALT (test code = Unit/L 12-78 ALT) ALKALINE PHOSPHATASE Unit/L 45-117 TOTAL (test code = ALKP) INDEX HEMOLYSIS (test 1 NORMAL <10 MG 1 NORMAL code = HEMINDEX) Index/DL INDEX ICTERIC (test code 1 NORMAL <2 MG 1 NORMAL = ICTINDEX) Index/DL INDEX LIPEMIA (test code 1 NORMAL <50 MG 1 NORMAL = LIPINDEX) Index/DL HGB [id number] 16:22:00 Test Item Value Reference Range Interpretation Comments RED BLOOD CELL (test code = RBC) 4.61 M/mm3 3.8-5.5 N HEMOGLOBIN (test code = HGB) 13.6 G/DL 10.6-15.8 N HEMATOCRIT (test code = HCT) 42.7 % 31.8-47.4 N MEAN CELL VOLUME (test code = MCV) 92.6 fL 80.1-101.1 N
--- NOTE | 2020-04-30 04:03 | EDPHYS ---
Physician Documentation [facility] Name: Brandee Rajan Age: 54 yrs Sex: Female : 1965 Arrival Date: 04/30/2020 Time: 01:45 Bed 2 Private MD: ED Physician Todd Chaudhry HPI: 04/30 02:11 This 54 yrs old Female presents to ER via Ambulatory with complaints of mh7 Swallowed Foreign Body, ACIDENTALLY INGESTED EARRINGS. 02:11 The patient or guardian reports the patient has a suspected foreign body, that has been mh7 ingested. The reported likely foreign body is piece of jewelry. Onset: The symptoms/episode began/occurred today, at 01:00. Treatment Prior to Arrival: none. 02:13 Current symptoms: coughing, foreign body sensation. Accidentally swallowed 2 earrings mh7 in the dark but thought she was taking her medication.. Historical: - Allergies: 02:04 No Known Allergies; mg2 - Home Meds: 02:04 levothyroxine oral [Active]; blood sugar meds [Active]; mg2 - PMHx: 02:04 Diabetes - NIDDM; Head injury; mg2 - PSHx: 02:04 Cholecystectomy; brain sx; mg2 - Immunization history:: Flu vaccine status is unknown. - Social history:: Smoking status: unknown. ROS: 02:13 Constitutional: Negative for fever, chills, and weight loss, Eyes: Negative for injury, mh7 pain, redness, and discharge, ENT: Negative for injury, pain, and discharge, Neck: Negative for injury, pain, and swelling, Cardiovascular: Negative for chest pain, palpitations, and edema. 02:13 Abdomen/GI: Negative for abdominal pain, nausea, vomiting, diarrhea, and constipation, Back: Negative for injury and pain, : Negative for injury, bleeding, discharge, and swelling, MS/Extremity: Negative for injury and deformity, Skin: Negative for injury, rash, and discoloration, Neuro: Negative for headache, weakness, numbness, tingling, and seizure, Psych: Negative for depression, anxiety, suicide ideation, homicidal ideation, and hallucinations, Allergy/Immunology: Negative for hives, rash, and allergies, Endocrine: Negative for neck swelling, polydipsia, polyuria, polyphagia, and marked weight changes, Hematologic/Lymphatic: Negative for swollen nodes, abnormal bleeding, and unusual bruising. 02:13 Respiratory: Negative for dyspnea on exertion, hemoptysis, orthopnea, pleurisy, shortness of breath, sputum production, wheezing. Exam: 03:59 Constitutional: This is a well developed, well nourished patient who is awake, alert, mh7 and in no acute distress. Head/Face: Normocephalic, atraumatic. Eyes: Pupils equal round and reactive to light, extra-ocular motions intact. Lids and lashes normal. Conjunctiva and sclera are non-icteric and not injected. Cornea within normal limits. Periorbital areas with no swelling, redness, or edema. ENT: Nares patent. No nasal discharge, no septal abnormalities noted. Tympanic membranes are normal and external auditory canals are clear. Oropharynx with no redness, swelling, or masses, exudates, or evidence of obstruction, uvula midline. Mucous membranes moist. Neck: Trachea midline, no thyromegaly or masses palpated, and no cervical lymphadenopathy. Supple, full range of motion without nuchal rigidity, or vertebral point tenderness. No Meningismus. Chest/axilla: Normal chest wall appearance and motion. Nontender with no deformity. No lesions are appreciated. Cardiovascular: Regular rate and rhythm with a normal S1 and S2. No gallops, murmurs, or rubs. Normal PMI, no JVD. No pulse deficits. Respiratory: Lungs have equal breath sounds bilaterally, clear to auscultation and percussion. No rales, rhonchi or wheezes noted. No increased work of breathing, no retractions or nasal flaring. Abdomen/GI: Soft, non-tender, with normal bowel sounds. No distension or tympany. No guarding or rebound. No evidence of tenderness throughout. Back: No spinal tenderness. No costovertebral tenderness. Full range of motion. Skin: Warm, dry with normal turgor. Normal color with no rashes, no lesions, and no evidence of cellulitis. MS/ Extremity: Pulses equal, no cyanosis. Neurovascular intact. Full, normal range of motion. Neuro: Awake and alert, GCS 15, oriented to person, place, time, and situation. Cranial nerves II-XII grossly intact. Motor strength 5/5 in all extremities. Sensory grossly intact. Cerebellar exam normal. Normal gait. Psych: Awake, alert, with orientation to person, place and time. Behavior, mood, and affect are within normal limits. Vital Signs: 02:01 BP 177 / 72; Pulse 81; Resp 18; Temp 97.9(TE); Pulse Ox 100% on R/A; Weight 96.62 kg tt3 (R); Height 5 ft. 4 in. (162.56 cm) (R); Pain 7/10; 03:00 BP 165 / 89; Pulse 89; Resp 15; Pulse Ox 98% ; rr5 04:00 BP 150 / 85; Pulse 80; Resp 17; Pulse Ox 99% ; rr5 02:01 Body Mass Index 36.56 (96.62 kg, 162.56 cm) tt3 MDM: 03:59 Data reviewed: vital signs, nurses notes, radiologic studies, plain films. Data [facility] interpreted: Pulse oximetry: on room air is 100 %. Interpretation: normal. Counseling: I had a detailed discussion with the patient and/or guardian regarding: the historical points, exam findings, and any diagnostic results supporting the discharge/admit diagnosis, the presence of at least one elevated blood pressure reading (>120/80) during this emergency department visit, radiology results, the need for outpatient follow up, to return to the emergency department if symptoms worsen or persist or if there are any questions or concerns that arise at home. Response to treatment: the patient's symptoms have resolved after treatment, the patient's blood pressure is in an acceptable range, mental status has returned to baseline, the patient no longer shows bradycardia, the patient is not short of breath, the patient is not tachycardic, the patient's pain is gone, the patient's temperature has normalized. 04:01 Patient medically screened. mh7 04/30 03:09 Order name: Abdomen Single View EDMS Administered Medications: No medications were administered Disposition: 04/30/20 04:01 Discharged to Home. Impression: Swallowed Foreign Body. - Condition is Stable. - Discharge Instructions: Swallowed Foreign Body, Adult, Mheh-op-Bghx. - Medication Reconciliation Form, Thank You Letter, Antibiotic Education, Prescription Opioid Use form. - Follow up: Private Physician; When: 1 - 2 days; Reason: Worsening of condition, Recheck today's complaints, Continuance of care, Re-evaluation by your physician. - Problem is new. - Symptoms have improved. Signatures: Dispatcher [employer] EDRI Pavel White, RN RN mg2 Sergio Abdalla RN RN rr5 Todd Chaudhry MD MD 7 Corrections: (The following items were deleted from the chart) 02:14 02:11 Current symptoms: none, mh7 [facility] 03:09 02:12 Abdomen Acute Series+RAD.RAD.BRZ ordered. EDRI EDRI 03:09 02:12 Chest Pa And Lat (2 Views)+RAD.RAD.BRZ ordered. [facility] EDRI 03:09 02:12 Neck Soft Tissue+RAD.RAD.BRZ ordered. [facility] 04:12 04:01 04/30/2020 04:01 Discharged to Home. Impression: Swallowed Foreign Body. rr5 Condition is Stable. Forms are Medication Reconciliation Form, Thank You Letter, Antibiotic Education, Prescription Opioid Use. Follow up: Private Physician; When: 1 - 2 days; Reason: Worsening of condition, Recheck today's complaints, Continuance of care, Re-evaluation by your physician. Problem is new. Symptoms have improved. 7
--- NOTE | 2020-04-30 04:03 | ER ---
Nurse's Notes [facility] Name: Brandee Rajan Age: 54 yrs Sex: Female : 1965 Arrival Date: 04/30/2020 Time: 01:45 Bed 2 Private MD: Diagnosis: Swallowed Foreign Body Presentation: 04/30 01:58 Chief complaint: Patient states: \T\ 0110 today i accidentally swallowed 2 different mg2 pairs of earrings because it was dark in my room i thought it was my night pills. i already coughed out the 2 different earrings and the rest feels like stucked on my throat. Coronavirus screen: Client denies travel out of the [place] in the last 14 days. At this time, the client does not indicate any symptoms associated with coronavirus-19. Ebola Screen: No symptoms or risks identified at this time. Initial Sepsis Screen: Does the patient meet any 2 criteria? No. Patient's initial sepsis screen is negative. Does the patient have a suspected source of infection? No. Patient's initial sepsis screen is negative. Risk Assessment: Do you want to hurt yourself or someone else? Patient reports no desire to harm self or others. Onset of symptoms was April 30, 2020. 01:58 Method Of Arrival: Ambulatory mg2 01:58 Acuity: ONELIA 4 mg2 Historical: - Allergies: 02:04 No Known Allergies; mg2 - Home Meds: 02:04 levothyroxine oral [Active]; blood sugar meds [Active]; mg2 - PMHx: 02:04 Diabetes - NIDDM; Head injury; mg2 - PSHx: 02:04 Cholecystectomy; brain sx; mg2 - Immunization history:: Flu vaccine status is unknown. - Social history:: Smoking status: unknown. Screenin:04 Abuse screen: Denies threats or abuse. Denies injuries from another. Nutritional rr5 screening: No deficits noted. Tuberculosis screening: No symptoms or risk factors identified. Fall Risk None identified. Total Marie Fall Scale indicates No Risk (0-24 pts). Assessment: 02:04 General: Appears in no apparent distress. comfortable, Behavior is calm, cooperative. mg2 Pain: Complains of pain in throat. Neuro: Level of Consciousness is awake, alert, obeys commands, Oriented to person, place, time, situation. Cardiovascular: Capillary refill < 3 seconds Patient's skin is warm and dry. Respiratory: Airway is patent Respiratory effort is even, unlabored, Respiratory pattern is regular, symmetrical. GI: No signs and/or symptoms were reported involving the gastrointestinal system. : No signs and/or symptoms were reported regarding the genitourinary system. EENT: Reports throat pain. Derm: Skin is intact, is healthy with good turgor, Skin is pink, warm \T\ dry. normal. Musculoskeletal: Circulation, motion, and sensation intact. Capillary refill < 3 seconds. 03:34 Reassessment: Patient appears in no apparent distress at this time. Patient and/or mg2 family updated on plan of care and expected duration. Pain level reassessed. Patient is alert, oriented x 3, equal unlabored respirations, skin warm/dry/pink. 04:10 Reassessment: Patient appears in no apparent distress at this time. Patient is alert, rr5 oriented x 3, equal unlabored respirations, skin warm/dry/pink. discharge instruction given and explained without complaint made. Vital Signs: 02:01 BP 177 / 72; Pulse 81; Resp 18; Temp 97.9(TE); Pulse Ox 100% on R/A; Weight 96.62 kg tt3 (R); Height 5 ft. 4 in. (162.56 cm) (R); Pain 7/10; 03:00 BP 165 / 89; Pulse 89; Resp 15; Pulse Ox 98% ; rr5 04:00 BP 150 / 85; Pulse 80; Resp 17; Pulse Ox 99% ; rr5 02:01 Body Mass Index 36.56 (96.62 kg, 162.56 cm) tt3 ED Course: 01:45 Patient arrived in ED. cf2 01:54 Todd Chaudhry MD is Attending Physician. mh7 01:58 Pavel White, ARTHUR is Primary Nurse. mg2 02:03 Triage completed. mg2 02:04 Arm band placed on. mg2 02:04 Patient has correct armband on for positive identification. Bed in low position. Call rr5 light in reach. Pulse ox on. NIBP on. 02:06 No provider procedures requiring assistance completed. Patient did not have IV access mg2 during this emergency room visit. 03:13 Abdomen Single View In Process Unspecified. EDMS Administered Medications: No medications were administered Outcome: 04:01 Discharge ordered by MD. lloyd 04:12 Patient left the ED. rr5 Signatures: Dispatcher [employer] EDMS Pavel White RN RN mg2 Sergio Abdalla RN RN rr5 Dionte Fontaine cf2 Todd Chaudhry MD MD mh7 Rayo Falcon tt3
[2020-04-30 05:10] VITALS: BP 177/72; TEMP 97.9; O2SAT 100
--- NOTE | 2020-04-30 08:01 | RAD REPORT ---
EXAM DESCRIPTION: RAD - Abdomen Single View - 04/30/2020 3:13 am CLINICAL HISTORY: swallowed foreign body COMPARISON: No comparisons FINDINGS: Frontal views of the neck, chest and abdomen were obtained spanning from alpha to pelvic f carin. Lung benson are clear. No air trapping or acute finding identifiable. No neck soft tissue abnormality identified. Bowel gas pattern is non-specific. No obstruction, free air or pneumatosis. No suspicio us calcifications. Cholecystectomy clips are seen in the right upper quadrant. Abdominal imaging is more limited due to film technique and soft tissue attenuation affects. Patient has an enlarged liver possibly due to Reidel lobe configuration. This can be evaluated further with o utpatient liver ultrasound. Radiopaque density is present in the midline upper abdomen superimposed on the L2 body. This is proba yi the ingested foreign body. No other foreign body identified. No free air or pneumatosis. IMPRESSION: Radiopaque foreign body density is present in the midline upper abdomen likely in the di stal body or antrum of the stomach. Neck and chest imaging shows no suspicious finding. Hepatomegaly is evident possibly a Reidel lobe configuration. Follow-up outpatient liver sonography c ould be performed for complete assessment.
== END 2020-04-30 04:12 | disposition home or self-care (01) ==
LOC: ER 01:43
DX: T18.2XXA Foreign body in stomach, initial encounter (principal); E11.9 Type 2 diabetes mellitus without complications
CPT/HCPCS: 74018; 99283

== ENCOUNTER 2020-12-31 15:58 | Emergency (ER) | payer OTHER ==
[2020-12-31 17:12] LABS: Hematocrit 37.8 % (36.0-45.0); Lymphocytes % 16.2 % (15.3-44.8); MPV 8.9 fL (7.6-11.3); RBC Red Blood Cell Count 4.32 M/uL (3.86-4.86)
--- NOTE | 2020-12-31 18:29 | RAD REPORT ---
EXAM DESCRIPTION: CTAbdomen Pelvis W Contrast - 12/31/2020 6:21 pm CLINICAL HISTORY: Abdominal pain. left sided abdominal pain COMPARISON: No comparisons TECHNIQUE: Biphasic CT imaging of the abdomen and pelvis was performed with 100 ml non-ionic IV cont rast. All CT scans are performed using dose optimization technique as appropriate and may include automated exposure control or mA/KV adjustment according to patient size. FINDINGS: The lung bases are clear. The liver, spleen, pancreas, left adrenal gland and kidneys are within normal limits. 18 mm right adr enal mass is present, probably an adenoma. Cholecystectomy clips. No bowel obstruction, free air, free fluid or abscess. Small fat containing umbilical hernia. The pedro endix is normal. No evidence of significant lymphadenopathy. Mild lumbosacral degenerative changes. IMPRESSION: No acute intra-abdominal or pelvic finding.
[2020-12-31 19:26] LABS: ALT/SGPT 73 U/L (12-78); AST/SGOT 134 U/L (15-37); Alkaline Phosphatase 93 U/L (45-117); BUN Blood Urea Nitrogen 5 mg/dL (7-18); Bicarbonate 30 mmol/L (21-32); Bilirubin Total 0.5 mg/dL (0.2-1.0); Glucose Level 109 mg/dL (74-106); Potassium 3.5 mmol/L (3.5-5.1); Protein, Total 7.7 g/dL (6.4-8.2); Sodium Level 142 mmol/L (136-145)
[2020-12-31 19:29] LABS: Albumin 3.3 g/dL (3.4-5.0); Bilirubin Direct 0.1 mg/dL (0-0.2); Lipase 45 U/L (73-393)
--- NOTE | 2020-12-31 19:36 | EDPHYS ---
Physician Documentation [facility] Name: Brandee Rajan Age: 55 yrs Sex: Female : 1965 Arrival Date: 12/31/2020 Time: 16:02 Bed 6 Private MD: Compa Rogel HPI: 12/31 16:49 This 55 yrs old Female presents to ER via Ambulatory with complaints of [facility] Abdominal Pain. 16:49 The patient presents with abdominal pain. Onset: The symptoms/episode began/occurred jm acutely, today. The symptoms do not radiate. Associated signs and symptoms: Pertinent negatives: nausea and vomiting, fever, shortness of breath, vomiting, vomiting blood. The symptoms are described as achy. Modifying factors: The symptoms are alleviated by nothing, the symptoms are aggravated by pressure. Patient states her dog kicked her in the left flank region. Patient states now having increased pain in the area. HX of cholecystectomy. . Historical: - Allergies: 16:25 No Known Allergies; ll1 - PMHx: 16:25 Diabetes - NIDDM; Head injury; frontal lobe contusion; thyroid problems; Pancreatitis; ll1 elevated liver enzymes; - PSHx: 16:25 Cholecystectomy; stone bile duct; ll1 - Immunization history:: Client reports having NOT received the Covid vaccine. - Social history:: Smoking status: Patient reports the use of cigarette tobacco products, smokes one pack cigarettes per day. ROS: 16:49 Constitutional: Negative for fever, chills, and weight loss, Cardiovascular: Negative jmm for chest pain, palpitations, and edema, Respiratory: Negative for shortness of breath, cough, wheezing, and pleuritic chest pain. 16:49 Abdomen/GI: Positive for abdominal pain. 16:49 All other systems are negative. Exam: 16:49 Constitutional: This is a well developed, well nourished patient who is awake, alert, jmm and in no acute distress. Head/Face: atraumatic. Eyes: EOMI, no conjunctival erythema appreciated ENT: Moist Mucus Membranes Neck: Trachea midline, Supple Chest/axilla: Normal chest wall appearance and motion. Cardiovascular: Regular rate and rhythm. No edema appreciated Respiratory: Normal respirations, no respiratory distress appreciated 16:49 Back: Normal ROM Skin: General appearance color normal MS/ Extremity: Moves all extremities, no obvious deformities appreciated, no edema noted to the lower extremities Neuro: Awake and alert, normal gait Psych: Behavior is normal, Mood is normal, Patient is cooperative and pleasant 16:49 Abdomen/GI: Inspection: abdomen appears normal, Bowel sounds: normal, Palpation: soft, mild abdominal tenderness, in the left upper quadrant. Vital Signs: 16:22 BP 184 / 80; Pulse 79; Resp 17; Temp 97.3; Pulse Ox 100% ; Weight 104.33 kg; Height 5 ll1 ft. 4 in. (162.56 cm); Pain 8/10; 16:37 BP 197 / 82; Pulse 73; Resp 14; Pulse Ox 97% on R/A; Pain 6/10; tw5 16:50 BP 177 / 67; Pulse 73; Resp 14; Pulse Ox 100% ; tw5 18:42 BP 184 / 75; Pulse 65; Resp 16; Pulse Ox 100% on R/A; Pain 8/10; tw5 19:25 BP 172 / 80; Pulse 68; Resp 18; Pulse Ox 99% on R/A; Pain 8/10; lp1 16:22 Body Mass Index 39.48 (104.33 kg, 162.56 cm) ll1 MDM: 16:42 Patient medically screened. [facility] 19:34 Data reviewed: vital signs, nurses notes. Counseling: I had a detailed discussion with nata the patient and/or guardian regarding: the historical points, exam findings, and any diagnostic results supporting the discharge/admit diagnosis, the need for outpatient follow up, to return to the emergency department if symptoms worsen or persist or if there are any questions or concerns that arise at home. 12/31 16:35 Order name: Basic Metabolic Panel; Complete Time: 19:34 [facility] 12/31 16:35 Order name: CBC with Diff; Complete Time: 17:19 [facility] 12/31 16:35 Order name: Hepatic Function; Complete Time: 19:34 [facility] 12/31 16:35 Order name: Lipase; Complete Time: 19:34 [facility] 12/31 17:45 Order name: CT Abd/Pelvis - IV Contrast Only; Complete Time: 18:30 [facility] 12/31 16:35 Order name: IV Saline Lock; Complete Time: 16:50 [facility] 12/31 16:35 Order name: Labs collected and sent; Complete Time: 16:50 [facility] Administered Medications: 19:25 Drug: Ketorolac 30 mg Route: IVP; Site: right wrist; lp1 19:45 Follow up: Response: No adverse reaction lp1 Disposition: 01/01 10:41 Co-signature as Attending Physician, Compa Harrington MD I agree with the assessment and cherie plan of care. Disposition Summary: 12/31/20 19:36 Discharge Ordered Location: Home jm Condition: Stable jmm Diagnosis - Abdominal pain, Generalized jmm Followup: [facility] - With: Private Physician - When: 2 - 3 days - Reason: Recheck today's complaints, Continuance of care, Re-evaluation by your physician Forms: - Medication Reconciliation Form [facility] - Thank You Letter [facility] - Antibiotic Education [facility] - Prescription Opioid Use [facility] Signatures: Dispatcher [employer] Compa Woodward MD MD cha Mickail, Joel, PA PA jmm Pena, Laura, RN RN lp1 Phill Larios RN RN ll1
--- NOTE | 2020-12-31 19:36 | ER ---
Nurse's Notes [facility] Name: Brandee Rajan Age: 55 yrs Sex: Female : 1965 Arrival Date: 12/31/2020 Time: 16:02 Bed 6 Private MD: Diagnosis: Abdominal pain, Generalized Presentation: 12/31 16:22 Chief complaint: Patient states: LUQ abd pain int. since Friday. Her dog jumped onto ll1 her abdomen today, pain since. No N/V/D. No fevers. Has had "allergies and cough", negative for flu/strep/covid. Coronavirus screen: Vaccine status: Patient reports being unvaccinated. Client denies travel out of the [place] in the last 14 days. congestion, cough unrelated to allergies, Client presents with at least one sign or symptom that may indicate coronavirus-19. Standard/surgical mask placed on the client. Ebola Screen: Patient denies travel to an Ebola-affected area in the 21 days before illness onset. Initial Sepsis Screen: Does the patient meet any 2 criteria? No. Patient's initial sepsis screen is negative. Does the patient have a suspected source of infection? Yes: Acute abdominal pain. Risk Assessment: Do you want to hurt yourself or someone else? Patient reports no desire to harm self or others. Onset of symptoms was December 27, 2020. 16:22 Method Of Arrival: Ambulatory 1 16:22 Acuity: ONELIA 3 ll1 Triage Assessment: 19:49 General: Appears in no apparent distress. Behavior is calm, cooperative, appropriate ms4 for age. Historical: - Allergies: 16:25 No Known Allergies; ll1 - PMHx: 16:25 Diabetes - NIDDM; Head injury; frontal lobe contusion; thyroid problems; Pancreatitis; ll1 elevated liver enzymes; - PSHx: 16:25 Cholecystectomy; stone bile duct; ll1 - Immunization history:: Client reports having NOT received the Covid vaccine. - Social history:: Smoking status: Patient reports the use of cigarette tobacco products, smokes one pack cigarettes per day. Screenin:37 Abuse screen: Denies threats or abuse. Denies injuries from another. Nutritional tw5 screening: No deficits noted. Tuberculosis screening: No symptoms or risk factors identified. Fall Risk None identified. Assessment: 16:37 General: " [place] to the beach, and my bull dog freaked out and jumped tw5 into the front seat and stepped on my side and it triggered a consistent pain.". Pain: Complains of pain in left upper quadrant and left lower quadrant Pain currently is 6 out of 10 on a pain scale. Quality of pain is described as aching. GI: Bowel sounds present X 4 quads. Abd is soft and non tender ' It didn't hurt a the moment' nursing staff asked if it hurt when pressor was applied. Bowring further explained that the pain comes and goes. 18:23 Reassessment: Recollect BMP sent to lab. Awaiting results. ss 18:42 General: ' I have been in pain!". Pain: Pain currently is 8 out of 10 on a pain scale. tw5 19:25 General: Appears uncomfortable. Pain: Complains of pain in left upper quadrant Pain lp1 currently is 8 out of 10 on a pain scale. Quality of pain is described as sharp. Neuro: Level of Consciousness is awake, alert, obeys commands, Oriented to person, place, time, situation. Cardiovascular: Patient's skin is warm and dry. Respiratory: Respiratory effort is even, unlabored. Derm: Skin is pink, warm \\T\\ dry. 19:25 Musculoskeletal: No deficits noted. lp1 Vital Signs: 16:22 BP 184 / 80; Pulse 79; Resp 17; Temp 97.3; Pulse Ox 100% ; Weight 104.33 kg; Height 5 ll1 ft. 4 in. (162.56 cm); Pain 8/10; 16:37 BP 197 / 82; Pulse 73; Resp 14; Pulse Ox 97% on R/A; Pain 6/10; tw5 16:50 BP 177 / 67; Pulse 73; Resp 14; Pulse Ox 100% ; tw5 18:42 BP 184 / 75; Pulse 65; Resp 16; Pulse Ox 100% on R/A; Pain 8/10; tw5 19:25 BP 172 / 80; Pulse 68; Resp 18; Pulse Ox 99% on R/A; Pain 8/10; lp1 16:22 Body Mass Index 39.48 (104.33 kg, 162.56 cm) ll1 ED Course: 16:02 Patient arrived in ED. ds1 16:25 Triage completed. ll1 16:33 Faviola Mackey is Primary Nurse. tw5 16:35 Elias Watkins PA is PHCP. [facility] 16:35 Compa Harrington MD is Attending Physician. [facility] 16:37 No apparent distress. Resting quietly. tw5 16:37 Patient has correct armband on for positive identification. Pulse ox on. NIBP on. Door tw5 closed. Noise minimized. Lights dimmed. Moved to private room. Verbal reassurance given. 16:50 Initial lab(s) drawn, by me, sent to lab. Inserted saline lock: 20 gauge in right tw5 wrist, using aseptic technique. 16:51 Basic Metabolic Panel Sent. tw5 16:51 CBC with Diff Sent. tw5 16:51 Hepatic Function Sent. tw5 16:51 Lipase Sent. tw5 16:52 CBC with Diff Sent. tw5 16:52 Lipase Sent. tw5 18:18 Lab(s) recollected, by me, sent to lab. dh3 18:21 CT Abd/Pelvis - IV Contrast Only In Process Unspecified. EDMS 18:31 Basic Metabolic Panel Sent. tw5 18:31 Hepatic Function Sent. tw5 18:32 Lipase Sent. tw5 19:49 No provider procedures requiring assistance completed. Patient did not have IV access ms4 during this emergency room visit. 19:50 Arm band placed on. ms4 Administered Medications: 19:25 Drug: Ketorolac 30 mg Route: IVP; Site: right wrist; lp1 19:45 Follow up: Response: No adverse reaction lp1 Outcome: 19:36 Discharge ordered by MD. [facility] 19:49 Discharged to home ambulatory. ms4 19:49 Condition: stable 19:49 Discharge instructions given to patient, Instructed on discharge instructions, follow up and referral plans. Demonstrated understanding of instructions, follow-up care. 19:51 Patient left the ED. ms4 Signatures: Dispatcher [employer] EDMS Elias Watkins PA PA jmm Sanford, Demi ds1 Luda Smith RN RN Henna Rajan RN RN 1 Nahed Suggs 3 Phill Larios RN RN 1 Mere Rocha RN RN ms4 Faviola Mackey tw5
[2020-12-31] MEDS ORDERED: KETOROLAC 30 MG/ML INJ ONE (19:44)
[2020-12-31 19:59] VITALS: TEMP 97.3
[2020-12-31 20:01] VITALS: O2SAT 100
[2020-12-31 20:03] VITALS: BP 184/75
== END 2020-12-31 19:51 | disposition home or self-care (01) ==
LOC: ER 15:58
DX: R10.84 Generalized abdominal pain (principal); E11.9 Type 2 diabetes mellitus without complications; F17.210 Nicotine dependence, cigarettes, uncomplicated
CPT/HCPCS: 85025; 80048; 36415; 82565; 80076; 83690; 74177; 96374; 99284; Q9967

== ENCOUNTER 2021-02-16 17:37 | Emergency (ER) | payer OTHER ==
--- OUTSIDE RECORDS SUMMARY | 2021-02-16 17:41 | XMS REPORT | Continuity of Care Document ---
:1965 Author Organization [facility] t Address [address] [place] [address] Care Team Providers Name Role Phone Harry Porter Attending Clinician Unavailable Physician, Primary or Family Admitting Clinician Unavailabl e Payers Payer Name Policy Type Policy Number Effective Date Expiration Date S ource Problems This patient has no known problems. Allergies, Adverse Reactions, Alerts Allergy Allergy Status Severity Reaction(s) Onset Inactive Treating Comm ents Source Name Type Date Date Clinician cedneelimaw DA Active [facility] 04-06 Jay Em 00:00: [address] ragweed DA Active [facility] pollen 04-06 Jay Em 00:00: [address] cedarwoo DA Active [facility]US 0 [facility] d PROBLEMS 04-06 Jay Em 00:00: [address] ragweed DA Active [place] [facility] pollen PROBLEMS 04-06 Jay Em 00:00: [address] No Known DA Active U 2019-03 [facility] Allergie 2- Jay Em s 00:00: [address] No Known DA Active U 2019-03 [facility] Allergie 2-23 Jay Em s 00:00: [address] Medications Ordered Filled Start Stop Current Ordering Indication Dosage Frequency Signature Comments Components Source Medication Medication Date Date Medication? Clinician (SIG) Name Name Thad Keflex 2019- No Na Ruelas [address] [facility]00 [facility] 00 :00 l [facility] ent [facility] Bactrim DS Bactrim DS 2019- No Na Ruelas [address] [facility] 00:[facility]: 00:00 Memoria 00 :00 l [facility] ent [facility] Ursodiol Ursodiol Yes Na Ruelas [address] [facility] 11-16 with food [facility] - 00:[facility]: Memoria 00 l [facility] ent Clinics Triamcinolo Triamcinolo Yes Na Ruelas [address] [facility] ne ne 2-14 applicatio [facility] - Acetonide Acetonide 00:00: n to Mem oria 00 affected l area [facility] ent [facility] Nebulizer Nebulizer Yes Na Ruelas as [facility] Air Air 2-03 directed [facility] - Tube/Plugs Tube/Plugs 00:00: M emoria 00 l [facility] ent Clinics Celecoxib Celecoxib Yes Na Ruelas [address] [facility] with food [facility] Clinics Pantoprazol Pantoprazol Yes Na Ruelas TAKE [address] [facility] e Sodium e Sodium TABLET BY Nithya kes - MOUTH [facility] Albuterol Albuterol Yes Na Ruelas [address] [facility] Sulfate Sulfate needed [facility]ics Levothyroxi Levothyroxi Yes Na Ruelas TAKE [address] [facility] ne Sodium ne Sodium TABLET BY [facility] EVERY DAY l [facility] M[facility] ON ent AN EMPTY Clinics STOMACH Janumet Janumet Yes Na Ruelas [address] with meals [facility] BusPIRone BusPIRone Yes Na Ruelas [address] [facility] HCl HCl [facility] Ursodiol Ursodiol Yes Na Ruelas as [facility] directed [facility] Clinics Gabapentin Gabapentin Yes Na Ruelas [address] [facility]ics Aspir-Low Aspir-Low Yes Na Ruelas [address] [facility] Clinics Oxybutynin Oxybutynin Yes Na Ruelas [address] [facility] Chloride Chloride [facility] Trintellix Trintellix Yes Na Ruelas [address] [facility] Immunizations Ordered Filled Immunization Date Status Comments [facility] e Immunization Name Name Lita London 2019-04-[address] [facility]00 [facility] Procedures This patient has no known procedures. Encounters Start End Encounter Admission Attending Care Care Encounter Source Date/Time Date/Time Type Type Clinicians Facility Department ID 2020-04-11 Inpatient EL Elders, [facility] DAYS [id number] [facility] 11:00:00 Luis [id number] [facility] 2020-03-07 Inpatient EL Elders, [facility] DAYS [id number] [facility] 14:40:00 Luis [id number] [facility] 2021-02-06 2021-02-06 [facility] [id number] 2021-01-01 2021-01-01 [facility] [id number] [facility] 2021-01-01 2021-01-01 [facility] [id number] [facility] 2020-12-27 2020-12-27 [facility] [id number] [facility] 2020-12-22 2020-12-22 [facility] [id number] [facility] 2020-12-22 2020-12-22 [facility] [id number] [facility] 2020-12-22 2020-12-22 [facility] [id number] [facility] 2020-12-01 2020-12-01 Out[facility] [id number] [facility] 2020-10-24 2020-10-24 [facility] [id number] [facility] 2020-08-02 2020-08-02 Outpatient [facility] [id number] [facility] 2020-07-05 2020-07-05 [facility] [id number] [facility] 2020-06-20 2020-06-20 Out[facility] [id number] [facility] 2020-06-20 2020-06-20 Out[facility] [id number] [facility] 2020-06-15 2020-06-15 Out[facility] [id number] [facility] 2020-06-06 2020-06-06 Out[facility] [id number] [facility] 2020-06-05 2020-06-05 Outpatient [facility] [id number] [facility] 2020-05-29 2020-05-29 Out[facility] [id number] [facility] 2020-05-09 2020-05-09 Out[facility] [id number] [facility] 2020-05-05 2020-05-05 Out[facility] [id number] [facility] 2020-04-19 2020-04-19 Out[facility] [id number] [facility] 2020-04-07 2020-04-07 Outpatient [facility] [id number] [facility] 2020-04-06 2020-04-06 Outpatient Elders, [facility] DAYS [id number] 11[facility]00:00 Luis [id number] [facility] 2020-03-28 2020-03-28 Outpatient [facility] [id number] [facility] 2020-03-01 2020-03-01 Outpatient [facility] DAYS [id number] [facility] 14:40:00 14:40:00 [id number] [facility] 2020-02-24 2020-02-24 Outpatient [facility] [id number] [facility] 2020-02-22 2020-02-22 Outpatient [facility] [id number] [facility] 2020-01-14 2020-01-14 Outpatient [facility] [id number] [facility] 2019-11-23 2019-11-23 [facility] [id number] [facility] 11:00:00 11:00:00 t [employer] [facility] - Drive [facility] Medicine Outpati ent Clinics 2019-11-16 2019-11-16 [facility] [id number] [facility] 09:52:00 09:52:00 t [employer] - Drive [facility] Medicine l Medicine Outpati ent Clinics 2019-08-30 2019-08-30 [facility] [id number] 08[facility]49:00 08:49:00 t [facility] s - Road [facility] Medicine l Medicine Outpati ent Clinics 2019-08-18 2019-08-18 [facility] [id number] 09:40:00 09:40:00 t [employer] - Drive [facility] Medicine l Medicine Outpati ent Clinics 2019-08-10 2019-08-10 [facility] [id number] 14:31:00 14:31:00 t [employer] [facility] Medicine l Medicine Outpati ent Clinics 2019-08-07 2019-08-07 [facility] [id number] [facility] 07:31:00 07:31:00 t [employer] [facility] l Medicine Outpati ent Clinics 2019-08-06 2019-08-06 [facility] [id number] 09:20:00 09:20:00 t [employer] [facility] l Medicine Outpati ent Clinics 2019-04-30 2019-04-30 [facility] [id number] [facility] 16:02:00 16:02:00 t [employer] [facility] Medicine l Medicine Outpati ent Clinics 2019-04-15 2019-04-15 [facility] [id number] 10:26:00 10:26:00 t [employer] [facility] Medicine l Medicine Outpati ent Clinics 2019-04-12 2019-04-12 [facility] [id number] 09:27:00 09:27:00 t [employer] [facility] Medicine l Medicine Outpati ent Clinics 2019-04-02 2019-04-02 [facility] [id number] 08:40:00 08:40:00 t [employer] [facility] l Medicine Outpati ent Clinics 2019-04-01 2019-04-01 [facility] [id number] 11:20:00 11:20:00 t [employer] [facility] l Medicine Outpati ent Clinics Results Test Description Test Time Test Comments Results Result Sourc e Comments - XR FLUORO FOR 2020-04-11 SPINE INJ 14:34:00 [facility] : 1965 Sex: F FAX: Luis Eisenberg MD [phone] [place]: C St: REG Patient Name: SRINI JOSÉ BUNNY Unit No: [id number] EXAMS: CPT CODE: [id number] XR FLUORO FOR SPINE INJ 36475 Location: T 18 INDICATION: ONELIA IMPRESSION: 12 seconds of intraoperative fluoroscopy provided for lumbar ONELIA. I was not present for or involved with the procedure or provided fluoroscopy. Please refer to the procedure note for details. Radiation dose 7 mGy (PSD). at 1434 Reported and signed by: Santino Golden M.D. CC: Luis Porter MD Dictated Date/Time: 04/11/2020 (1434)Technologist: Maurizio Perla Transcribed Date/Time: 04/11/2020 (1434) By: [email or web address] Orig Print D/T: S: 04/11/2020 (3688) [facility] NAME: SRINI JOSÉ MEDICAL IMAGING PHYS: Luis Mora MD [address] [place] [address] : 1965 AGE: 54 SEX: F SARAH TREVIÑO [id number] LOC: SHADI PHONE #: [phone] EXAM DATE: 04/11/2020 STATUS: REG SDC FAX #: [phone] RAD NO: DC Dt: PAGE 1 Signed Report GLUCOSE BEDSIDE TESTING 2020-04-11 11:35:00 Test Item Value Reference Range Interpretation Comme nts GLUCOSE BEDSIDE TESTING (test code = GLUBED) 189 MG/DL 70-119 H COVID Asymptomatic IH [id number] 12:52:00 Test Item Value Reference Interpretation Comments [...] i ts performancechar acteristics were determined by [facility]. Thi s test has notbeen FDA [...] Perform High Co mplexity Testing under C JUANA NTONIO". Specimen comments: PT IN PAT ROOM 3Specimen comments: PT IN PAT ROOM 3First test? UnknownEmployed inHealthcare? NoSymptomatic as defined by CDC? NoHospitalized due to COVID? NoIn ICU due to COVID? NoResident in a congregate care setting? No? NoAge at collection: YHCG SERUM [id number] 12:55:00 Test Item Value Reference Range Interpretation [...] 1 NORMAL code = LIPINDEX) Index/DL HGB [id number] 12:38:00 Test Item Value Reference Range Interpretation Comments RED BLOOD CELL (test code = RBC) 4.52 M/mm3 3.8-5.5 N HEMOGLOBIN (test code = HGB) 13.4 G/DL 10.6-15.8 N HEMATOCRIT (test code = HCT) 42.3 % 31.8-47.4 N MEAN CELL VOLUME (test code = MCV) 93.6 fL 80.1-101.1 N - XR CHEST 2 [id number] 12:21:00 [facility] : 1965 Sex: F FAX: Luis Eisenberg MD [phone] [place]: St: PRE Patient Name: SRINI JOSÉ Unit No: [id number] EXAMS: CPT CODE: [id number] XR CHEST 2 V 12252 Site ID: [id number] HISTORY: Preoperative FINDINGS: The lungs are clear and normally expanded. The heart and pulmonary vasculature is normal. Osseous structures are unremarkable. IMPRESSION: Normal preoperative chest x-ray at 1221 Reported andsigned by: Santino Golden M.D. CC: Luis Porter MD Dictated Date/Time: 04/06/2020 (2306)Technologist: Smith Underwoodribed Date/Time: 04/06/2020 (1221) By: [email or web address] Orig Print D/T: S: 04/06/2020 (4282) 502 Imaging NAME: SRINI JOSÉ [address] [place] [address] PHYS: ELDGR - Luis Porter MD [place], [place] : 1965 AGE: 54 SEX: F [id number] LOC: LORRAINEU PHONE #: [phone] EXAM DATE: 04/06/2020 STATUS: PRE [facility] FAX #: [phone] RAD NO: DC Dt: PAGE 1 Signed ReportGLUCOSE BEDSIDE [id number] 07:49:00 Test Item Value Reference Range Interpretation Comments GLUCOSE BEDSIDE TESTING (test code 141 MG/DL 70-119 H = GLUBED) Novel Coronavirus 2019 [id number] 18:08:00 Test Item Value Reference Range Interpretation Comments Novel Coronavirus Not Detected Not Detected Testing wa s performed 2018 Inhouse (test using the Aptima code = COVNONPUI) SARS-CoV-2 assay.This nucleic acid amplification t est was developed and itsperformance characteristics determined by [facility]. Nucleic acid amplification t ests include PCRand TMA. This test has not be en FDA cleared or appr chintan.This test has been a uthorized by FDA under an Emergency UseAuthorizatio n (EUA). This test is on ly authorized he duration of joan e the declaration duncan t circumstancesex ist justifying the authorization o f the emergency use o fin vitro diagnostic test s for detection of SA RS-CoV-2 virusand/or frannie gnosis of COVID-19 infect ion under kpufwwo543(b)(1 ) of the Act, 21 U.S.C. 360bbb-3(b) [...] detected) resul t in this assay.Performed At: [facility] [address] [id number] fady Gillis MD Ph:[phone] UR HCG [id number] 16:55:00 Test Item Value Reference Range Interpretation Comments UR HCG QUAL (test NEGATIVE NEG Very dilut e urines with a code = HCGQLU) low specific gravity may notcontain repr esentative levels of hCG. - XR CHEST 2 [id number] 16:55:00 [facility] : 1965 Sex: F FAX: Luis Eisenberg MD [phone] [place]: O St: PRE Patient Name: SRINI JOSÉ BUNNY Unit No: [id number] EXAMS: CPT CODE: [id number] XR CHEST 2 V 66611 - XR CHEST 2 VLOCATION: T18 INDICATION:Preop, back pain The lungs are well expanded and free of infiltrates. The costophrenic recesses are sharp without effusion. The heart, mediastinum and bony structures are within normal limits. IMPRESSION: No active disease. at 1655 Reported and signed by: Zackery Argueta D.O. CC: Luis Porter MD Dictated Date/Time: 03/01/2020 (1654)Technologist: Hailey Phan Transcribed Date/Time: 03/01/2020 (1654) By: Cony Orig Print D/T: S: 03/01/2020 (1657) [facility] Jay Em NAME: ARNAVSRINI HOLLIS MEDICAL IMAGING DEPARTMENT PHYS: Luis Mora MD [address] [place] [address] : 1965 AGE: 54 SEX: F [id number] NO: [id number] LOC: CARLEEN #: [phone] EXAM DATE: 03/01/2020 STATUS: PRE [facility] FAX #: [phone] RAD NO: DC Dt: PAGE 1 Signed ReportCOMPREHENSIVE METABOLIC [id number] 16:39:00 Test Item Value Reference Range Interpretation [...] code = LIPINDEX) MG Index/DL COMPREHENSIVE METABOLIC [id number] 16:34:00 Test Item Value Reference Range Interpretation [...] MG 1 NORMAL = LIPINDEX) Index/DL HGB [id number] 16:22:00 Test Item Value Reference Range Interpretation Comments RED BLOOD CELL (test code = RBC) 4.61 M/mm3 3.8-5.5 N HEMOGLOBIN (test code = HGB) 13.6 G/DL 10.6-15.8 N HEMATOCRIT (test code = HCT) 42.7 % 31.8-47.4 N MEAN CELL VOLUME (test code = MCV) 92.6 fL 80.1-101.1 N
--- NOTE | 2021-02-16 21:22 | ER ---
Nurse's Notes [facility] Name: Brandee Rajan Age: 55 yrs Sex: Female : 1965 Arrival Date: 02/16/2021 Time: 17:38 Bed 11 Private MD: Diagnosis: Cutaneous abscess of buttock Presentation: 02/16 19:18 Chief complaint: Patient states: cyst on the panty line it was lanced by PMD. da3 Coronavirus screen: Vaccine status: Patient reports being unvaccinated. Ebola Screen: No symptoms or risks identified at this time. Initial Sepsis Screen: Does the patient meet any 2 criteria? No. Patient's initial sepsis screen is negative. Risk Assessment: Do you want to hurt yourself or someone else? Patient reports no desire to harm self or others. Onset of symptoms was February 11, 2021. 19:18 Method Of Arrival: Ambulatory da3 19:18 Acuity: ONELIA 4 da3 Triage Assessment: 19:23 General: Appears in no apparent distress. comfortable, Behavior is calm, cooperative. da3 Pain: Complains of pain in pelvis Pain currently is 8 out of 10 on a pain scale. Quality of pain is described as. - Immunization history:: Client reports having NOT received the Covid vaccine. - Social history:: Smoking status: Patient reports the use of cigarette tobacco products, smokes one pack cigarettes per day. - Family history:: not pertinent. Screenin:35 Abuse screen: Denies threats or abuse. Denies injuries from another. Nutritional ld1 screening: No deficits noted. Tuberculosis screening: No symptoms or risk factors identified. Fall Risk None identified. Assessment: 21:35 General: Appears in no apparent distress. uncomfortable, Behavior is calm, cooperative, ld1 appropriate for age. Pain: Complains of pain in pelvis Pain does not radiate. Pain currently is 6 out of 10 on a pain scale. Quality of pain is described as throbbing, Pain began suddenly, Is continuous. Neuro: Level of Consciousness is awake, alert, obeys commands, Oriented to person, place, time, situation, Appropriate for age. Cardiovascular: Capillary refill < 3 seconds Patient's skin is warm and dry. Respiratory: Airway is patent Respiratory effort is even, unlabored, Respiratory pattern is regular, symmetrical. GI: Abdomen is round non-distended. : Pt c/o wound to perineum. EENT: No signs and/or symptoms were reported regarding the EENT system. Derm: No signs and/or symptoms reported regarding the dermatologic system. Musculoskeletal: No signs and/or symptoms reported regarding the musculoskeletal system. Vital Signs: 19:18 BP 188 / 77; Pulse 76; Resp 16; Temp 97.3; Pulse Ox 99% on R/A; Weight 104.33 kg; da3 Height 5 ft. 4 in. (162.56 cm); 19:18 Body Mass Index 39.48 (104.33 kg, 162.56 cm) da3 ED Course: 17:38 Patient arrived in ED. as 19:21 Triage completed. da3 20:52 Compa Harrington MD is Attending Physician. [facility] 21:20 Sulma Soriano MD is Referral Physician. cherie 21:21 Ebenezer Turk MD is Referral Physician. cheire 21:35 Patient has correct armband on for positive identification. Placed in gown. Bed in low ld1 position. Call light in reach. Side rails up X2. Pulse ox on. NIBP on. Door closed. Noise minimized. Warm blanket given. 21:35 No provider procedures requiring assistance completed. ld1 22:07 Patient did not have IV access during this emergency room visit. ld1 Administered Medications: 21:35 Drug: LevOfloxacin 750 mg Route: PO; ld1 21:35 Drug: Bactrim (trimethoprim-sulfamethoxazole) (160 mg-800 mg (DS) 1 tablet Route: PO; ld1 21:35 Drug: Bactroban (mupirocin) Ointment 2 % 1 application Route: Topical; Site: affected ld1 area; Outcome: 21:21 Discharge ordered by . cherie 22:06 Discharged to home ambulatory. ld1 22:06 Condition: stable 22:06 Discharge instructions given to patient, Instructed on discharge instructions, follow up and referral plans. medication usage, Demonstrated understanding of instructions, follow-up care, medications, Prescriptions given X 3. 22:07 Patient left the ED. ld1 Signatures: Compa Harrington MD MD cha Martinez, Amelia as Dibbern, Lauren, RN RN ld1 Hermes Ramirez RN RN da3 Corrections: (The following items were deleted from the chart) 19:23 19:23 PMHx: Diabetes - NIDDM; da3 da3 19:23 19:23 PMHx: Head injury; frontal lobe contusion; da3 da3 19:23 19:23 PMHx: thyroid problems; da3 da3 19:23 19:23 PMHx: Pancreatitis; da3 da3 19:23 19:23 PMHx: elevated liver enzymes; da3 da3 19:23 19:23 PSHx: Cholecystectomy; da3 da3 19:23 19:23 PSHx: stone bile duct; da3 da3 21:39 21:35 Patient did not have IV access during this emergency room visit. ld1 ld1
--- NOTE | 2021-02-16 21:22 | EDPHYS ---
Physician Documentation [facility] Name: Brandee Rajan Age: 55 yrs Sex: Female : 1965 Arrival Date: 02/16/2021 Time: 17:38 Bed 11 Private MD: ED Physician Compa Harrington HPI: 02/16 21:14 This 55 yrs old Black Female presents to ER via Ambulatory with complaints of Abscess, cherie needs iv antibiotics. 21:14 The patient presents with an abscess of the groin. Description: The affected area is cherie very small, confluent, draining. Onset: The symptoms/episode began/occurred 3 day(s) ago. Onset: The symptoms/episode began/occurred at an unknown time. Possible cause(s): unknown. Associated signs and symptoms: The patient has no apparent associated signs or symptoms. Modifying factors: the symptoms are alleviated by nothing, the symptoms are aggravated by nothing. Severity of symptoms: At their worst the symptoms were moderate, in the emergency department the symptoms are unchanged. The patient has not experienced similar symptoms in the past. - Immunization history:: Client reports having NOT received the Covid vaccine. - Social history:: Smoking status: Patient reports the use of cigarette tobacco products, smokes one pack cigarettes per day. - Family history:: not pertinent. ROS: 21:14 Constitutional: Negative for fever, chills, and weight loss, Eyes: Negative for injury, cherie pain, redness, and discharge, ENT: Negative for injury, pain, and discharge, Neck: Negative for injury, pain, and swelling, Cardiovascular: Negative for chest pain, palpitations, and edema, Respiratory: Negative for shortness of breath, cough, wheezing, and pleuritic chest pain, Abdomen/GI: Negative for abdominal pain, nausea, vomiting, diarrhea, and constipation, Back: Negative for injury and pain, : Negative for injury, bleeding, discharge, and swelling, MS/Extremity: Negative for injury and deformity, Neuro: Negative for headache, weakness, numbness, tingling, and seizure, Psych: Negative for depression, anxiety, suicide ideation, homicidal ideation, and hallucinations, Allergy/Immunology: Negative for hives, rash, and allergies, Endocrine: Negative for neck swelling, polydipsia, polyuria, polyphagia, and marked weight changes, Hematologic/Lymphatic: Negative for swollen nodes, abnormal bleeding, and unusual bruising. 21:14 Skin: Positive for swelling. Exam: 21:14 Constitutional: This is a well developed, well nourished patient who is awake, alert, cherie and in no acute distress. Head/Face: Normocephalic, atraumatic. Eyes: Pupils equal round and reactive to light, extra-ocular motions intact. Lids and lashes normal. Conjunctiva and sclera are non-icteric and not injected. Cornea within normal limits. Periorbital areas with no swelling, redness, or edema. ENT: Nares patent. No nasal discharge, no septal abnormalities noted. Tympanic membranes are normal and external auditory canals are clear. Oropharynx with no redness, swelling, or masses, exudates, or evidence of obstruction, uvula midline. Mucous membranes moist. Neck: Trachea midline, no thyromegaly or masses palpated, and no cervical lymphadenopathy. Supple, full range of motion without nuchal rigidity, or vertebral point tenderness. No Meningismus. Chest/axilla: Normal chest wall appearance and motion. Nontender with no deformity. No lesions are appreciated. Cardiovascular: Regular rate and rhythm with a normal S1 and S2. No gallops, murmurs, or rubs. Normal PMI, no JVD. No pulse deficits. Respiratory: Lungs have equal breath sounds bilaterally, clear to auscultation and percussion. No rales, rhonchi or wheezes noted. No increased work of breathing, no retractions or nasal flaring. Abdomen/GI: Soft, non-tender, with normal bowel sounds. No distension or tympany. No guarding or rebound. No evidence of tenderness throughout. Back: No spinal tenderness. No costovertebral tenderness. Full range of motion. MS/ Extremity: Pulses equal, no cyanosis. Neurovascular intact. Full, normal range of motion. Neuro: Awake and alert, GCS 15, oriented to person, place, time, and situation. Cranial nerves II-XII grossly intact. Motor strength 5/5 in all extremities. Sensory grossly intact. Cerebellar exam normal. Normal gait. Psych: Awake, alert, with orientation to person, place and time. Behavior, mood, and affect are within normal limits. 21:14 Skin: cellulitis, that is mild, induration, that is mild is noted, injury, is not appreciated. Vital Signs: 19:18 BP 188 / 77; Pulse 76; Resp 16; Temp 97.3; Pulse Ox 99% on R/A; Weight 104.33 kg; da3 Height 5 ft. 4 in. (162.56 cm); 19:18 Body Mass Index 39.48 (104.33 kg, 162.56 cm) da3 MDM: 20:52 Patient medically screened. cherie 21:20 Differential diagnosis: abscess, cellulitis. Data reviewed: vital signs, nurses notes. 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 Counseling: I had a detailed discussion with the patient and/or guardian regarding: the historical points, exam findings, and any diagnostic results supporting the discharge/admit diagnosis, lab results, the need for outpatient follow up, for definitive care, a general surgeon, an OB/Gyne specialist. 02/16 21:22 Order name: Glucose, Ancillary Testing EDMS 02/16 21:14 Order name: Wound dressing; Complete Time: 21:35 cherie Administered Medications: 21:35 Drug: LevOfloxacin 750 mg Route: PO; ld1 21:35 Drug: Bactrim (trimethoprim-sulfamethoxazole) (160 mg-800 mg (DS) 1 tablet Route: PO; ld1 21:35 Drug: Bactroban (mupirocin) Ointment 2 % 1 application Route: Topical; Site: affected ld1 area; Disposition Summary: 02/16/21 21:21 Discharge Ordered Location: Home cherie Problem: new cherie Symptoms: have improved cherie Condition: Stable cherie Diagnosis - Cutaneous abscess of buttock cherie Followup: cherie - With: Sulma Soriano MD - When: 2 - 3 days - Reason: Recheck today's complaints, Re-evaluation by your physician Followup: cherie - With: Ebenezer Turk MD - When: 2 - 3 days - Reason: Recheck today's complaints, Re-evaluation by your physician Discharge Instructions: - Discharge Summary Sheet cherie - Skin Abscess cherie - Incision and Drainage cherie - Skin Abscess, Lobt-ht-Fovi cherie - Incision and Drainage, Care After cherie - How to Take a Sitz Bath cherie Forms: - Medication Reconciliation Form cherie - Thank You Letter cherie - Antibiotic Education cherie - Prescription Opioid Use cherie Prescriptions: - Centany 2 % Topical ointment - apply 1 application by TOPICAL route 3 times per day; 22 gram; Refills: 0, [facility] Product Selection Permitted - Bactrim DS 800-160 mg Oral Tablet - take 1 tablet by ORAL route every 12 hours for 10 days; 20 tablet; Refills: 0, [facility] Product Selection Permitted - levofloxacin 750 mg Oral Tablet - take 1 tablet by ORAL route once daily; 10 tablet; Refills: 0, Product cherie Selection Permitted Signatures: 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
[2021-02-16] MEDS ORDERED: SMZ./TMP. 800/160 MG TABLET ONE (21:27)
[2021-02-16] MEDS ORDERED: MUPIROCIN 2% OINT 22GM TUBE TOP ONE (21:27)
[2021-02-16] MEDS ORDERED: levoFLOXacin 750 MG TAB ONE (21:28)
[2021-02-16 22:24] VITALS: BP 188/77; TEMP 97.3; O2SAT 99
== END 2021-02-16 22:07 | disposition home or self-care (01) ==
LOC: ER 17:37
DX: L02.31 Cutaneous abscess of buttock (principal)
CPT/HCPCS: 82947; 99283

== ENCOUNTER 2021-03-17 19:15 | Emergency (ER) | payer OTHER ==
--- OUTSIDE RECORDS SUMMARY | 2021-03-17 19:18 | XMS REPORT | Continuity of Care Document ---
:1965 Author Organization [facility] t Address [address] [place] [address] Care Team Providers Name Role Phone Harry Porter Attending Clinician Unavailable Physician, Primary or Family Admitting Clinician Unavailabl e Payers Payer Name Policy Type Policy Number Effective Date Expiration Date S ource Problems This patient has no known problems. Allergies, Adverse Reactions, Alerts Allergy Allergy Status Severity Reaction(s) Onset Inactive Treating Comm ents Source Name Type Date Date Clinician cedneelimaw [place] [facility] [place] [facility]: [address] ragweed [place] [facility] [place] [facility] pollen 04-06 Post 00:00: [address] cedarwoo DA [facility] [place] [facility] d PROBLEMS 04-06 Post 00:00: [address] ragweed [place] [facility] pollen PROBLEMS 04-06 Post 00:00: [address] No Known DA Active U 2019-03 [facility] Allergie 2- Post s 00:00: [address] No Known DA Active U 2019-03 [facility] Allergie 2-23 Post s 00:00: [address] Medications Ordered Filled Start Stop Current Ordering Indication Dosage Frequency Signature Comments Components Source Medication Medication Date Date Medication? Clinician (SIG) Name Name Thad Keflex 2019- No Na Ruelas [address] [facility]:00 Memoria 00 :00 l [facility] Bactrim DS Bactrim DS 2019- No Na Ruelas [address] [facility] - 00:[facility]: 00:00 Memoria 00 :00 l [facility] Ursodiol Ursodiol Yes Na Ruelas [address] [facility] 11-16 with food [facility] - 00:[facility]: Memoria 00 l [facility] Clinics Triamcinolo Triamcinolo Yes Na Ruelas [address] [facility] ne ne 2-14 applicatio [facility] - Acetonide Acetonide 00:00: n to Mem oria 00 affected l area [facility] Nebulizer Nebulizer Yes Na Ruelas [facility] Air Air 2-03 directed [facility] - Tube/Plugs Tube/Plugs 00:00: M emoria 00 l [facility] ent Clinics Celecoxib Celecoxib Yes Na Ruelas [address] [facility] [facility] with food [facility] Pantoprazol Pantoprazol Yes Na Ruelas TAKE [address] [facility] e Sodium e Sodium TABLET BY Nithya kes - MOUTH Memoria [facility] Albuterol Albuterol Yes Na Ruelas [address] [facility] Sulfate Sulfate needed [facility] Levothyroxi Levothyroxi Yes Na Ruelas TAKE [address] [facility] ne Sodium ne Sodium TABLET BY [facility] M[facility]TH [facility] EVERY DAY l [facility] M[facility]ING ON ent AN EMPTY Clinics STOMACH Janumet Janumet Yes Na Ruelas [address] with meals [facility] BusPIRone BusPIRone Yes Na Ruelas [address] [facility] HCl HCl [facility] Ursodiol Ursodiol Yes Na Ruelas as [facility] directed [facility] Gabapentin Gabapentin Yes Na Ruelas [address] [facility] Aspir-Low Aspir-Low Yes Na Ruelas [address] [facility] Oxybutynin Oxybutynin Yes Na Ruelas [address] [facility] Chloride Chloride [facility] Trintellix Trintellix Yes Na Ruelas [address] [facility] Immunizations Ordered Filled Immunization Date Status Comments [facility] e Immunization Name Name Lita London 2019-04-[address] [facility] Procedures This patient has no known procedures. Encounters Start End Encounter Admission Attending Care Care Encounter Source Date/Time Date/Time Type Type Clinicians Facility Department ID 2020-04-11 Inpatient EL Elders, [facility] DAYS [id number] [facility] 11:00:00 Luis [id number] [facility] 2020-03-07 Inpatient EL Elders, [facility] DAYS [id number] [facility] 14:40:00 Luis [id number] [facility] 2021-03-15 2021-03-15 ambulatory [facility] [id number] [facility] 2021-03-15 2021-03-15 [facility] [id number] [facility] 2021-02-14 2021-02-14 ambulatory [facility] [id number] [facility] 2021-02-06 2021-02-06 ambulatory [facility] [id number] [facility] 2021-01-01 2021-01-01 Outpatient [facility] [id number] [facility] 2021-01-01 2021-01-01 Out[facility] [id number] [facility] 2020-12-27 2020-12-27 Outpatient [facility] [id number] [facility] 2020-12-22 2020-12-22 Outpatient [facility] [id number] [facility] 2020-12-22 2020-12-22 Outpatient [facility] [id number] [facility] 2020-12-22 2020-12-22 Outpatient [facility] [id number] [facility] 2020-12-01 2020-12-01 Outpatient [facility] [id number] [facility] 2020-10-24 2020-10-24 Outpatient [facility] [id number] [facility] 2020-08-02 2020-08-02 Outpatient [facility] [id number] [facility] 2020-07-05 2020-07-05 Outpatient [facility] [id number] [facility] 2020-06-20 2020-06-20 Outpatient [facility] [id number] [facility] 2020-06-20 2020-06-20 Outpatient [facility] [id number] [facility] 2020-06-15 2020-06-15 Outpatient [facility] [id number] [facility] 2020-06-06 2020-06-06 Outpatient [facility] [id number] [facility] 2020-06-05 2020-06-05 Outpatient [facility] [id number] [facility] 2020-05-29 2020-05-29 Outpatient [facility] [id number] [facility] 2020-05-09 2020-05-09 Outpatient [facility] [id number] [facility] 2020-05-05 2020-05-05 Out[facility] [id number] [facility] 2020-04-19 2020-04-19 Outpatient [facility] [id number] [facility] 2020-04-07 2020-04-07 Out[facility] [id number] [facility] 2020-04-06 2020-04-06 Outpatient Elders, [facility] DAYS [id number] [facility] 11[facility]:00 Luis [id number] [facility] 2020-03-28 2020-03-28 Outpatient [facility] [id number] [facility] 2020-03-01 2020-03-01 Outpatient [facility] DAYS [id number] 14:40:00 14:40:00 [id number] [facility] 2020-02-24 2020-02-24 Outpatient [facility] [id number] [facility] 2020-02-22 2020-02-22 Outpatient [facility] [id number] [facility] 2020-01-14 2020-01-14 Outpatient [facility] [id number] [facility] 2019-11-23 2019-11-23 [facility] [id number] 11:00:00 11:00:00 [place] [facility] [facility] s - Drive [facility] Medicine Outpati ent Clinics 2019-11-16 2019-11-16 [facility] [id number] 09:52:00 09:52:00 [facility] [place] [facility] - [facility] Medicine Outpati ent Clinics 2019-08-30 2019-08-30 [facility] [id number] 08:49:00 08:49:00 t [facility] [address] [employer] s - Road [facility] Medicine Outpati ent Clinics 2019-08-18 2019-08-18 [facility] [id number] 09:40:00 09:40:00 t [employer] s - Drive [facility] Medicine Outpati ent Clinics 2019-08-10 2019-08-10 [facility] [id number] 14:31:00 14:31:00 t [place] [facility] - Drive [facility] Medicine Outpati ent Clinics 2019-08-07 2019-08-07 [facility] [id number] 07:31:00 07:31:00 t [employer] s - Drive [facility] Medicine Outpati ent Clinics 2019-08-06 2019-08-06 [facility] [id number] 09:20:00 09:20:00 t [place] [facility] [facility] - Drive [facility] Medicine Outpati ent Clinics 2019-04-30 2019-04-30 [facility] [id number] 16:02:00 16:02:00 t [place] [facility] - Drive [facility] Medicine Outpati ent Clinics 2019-04-15 2019-04-15 [facility] [id number] 10:26:00 10:26:00 t [place] [facility] - Drive [facility] Medicine Outpati ent Clinics 2019-04-12 2019-04-12 [facility] [id number] 09:27:00 09:27:00 t [place] [employer] [facility] ent [facility] 2019-04-02 2019-04-02 Outpatient [facility] [id number] 08:40:00 08:40:00 [facility] [employer] [place] [employer] [facility] 2019-04-01 2019-04-01 Out[facility] [id number] 11:20:00 11:20:00 [facility] [employer] [place] [employer] [facility] Results Test Description Test Time Test Comments Results Result [facility] e Comments - XR FLUORO FOR 2020-04-11 SPINE INJ 14:34:00 [facility]OS[facility] Appiah : 1965 Sex: F FAX: Luis Eisenberg MD [phone] [place]: [address]: REG Patient Name: ARNAVSRINI HOLLIS Unit No: [id number] EXAMS: CPT CODE: [id number] XR FLUORO FOR SPINE INJ [id number] Location: T 18 INDICATION: ONELIA IMPRESSION: 12 [...] By: [email or web address] Orig Print D/T: S: 04/11/2020 (3069) JAY Treviño NAME: SRINI JOSÉ [facility] PHYS: Luis Mora MD [address] [place] [address] BLVD : 1965 AGE: 54 SEX: F SARAH TREVIÑO [id number] LOC: SHADI PHONE #: [phone] EXAM DATE: 04/11/2020 STATUS: [place] [facility] [place] #: [phone] RAD NO: DC Dt: PAGE 1 Signed Report GLUCOSE BEDSIDE TESTING 2020-04-11 11:35:00 Test Item Value Reference Range Interpretation Comme nts GLUCOSE BEDSIDE TESTING (test code = GLUBED) 189 MG/DL 70-119 H COVID Asymptomatic IH [id number] 12:52:00 Test Item Value Reference Interpretation Comments [...] i ts performancechar acteristics were determined by [facility]. Thi s test has notbeen FDA harjinder ared or approved. This test is authorized by t heFDA under Emergency Use Authorization(E UA). The EUA willremain in e ffect unless it is terminated o r revoked by FDA . Testing p arameters have not been valida debra for screeningasympt omatic patients. This test was validated accor martinez to the FDA's guidanced ocument "Policy for [...] setting? No? NoAge at collection: YHCG SERUM [id number] 12:55:00 Test Item Value Reference Range Interpretation [...] 1 NORMAL code = LIPINDEX) Index/DL HGB [id number] 12:38:00 Test Item Value Reference Range Interpretation Comments RED BLOOD CELL (test code = RBC) 4.52 M/mm3 3.8-5.5 N HEMOGLOBIN (test code = HGB) 13.4 G/DL 10.6-15.8 N HEMATOCRIT (test code = HCT) 42.3 % 31.8-47.4 N MEAN CELL VOLUME (test code = MCV) 93.6 fL 80.1-101.1 N - XR CHEST 2 [id number] 12:21:00 [facility] : 1965 Sex: F FAX: Luis Eisenberg MD [phone] [place]: St: PRE Patient Name: SRINI JOSÉ Unit No: [id number] EXAMS: CPT CODE: [id number] XR CHEST 2 V 62014 Site ID: [id number] HISTORY: Preoperative FINDINGS: The lungs are clear and normally expanded. The heart and pulmonary vasculature is normal. Osseous structures are unremarkable. IMPRESSION: Normal preoperative chest x-ray at 1221 Reported andsigned by: Santino Golden M.D. CC: Luis Porter MD Dictated Date/Time: 04/06/2020 (1221)Technologist: Smith Jaybed Date/Time: 04/06/2020 (1221) By: [email or web address] Orig Print D/T: S: 04/06/2020 (4083) 861 Imaging NAME: SRINI JOSÉ [address] [place] [address] Blvd PHYS: Luis Mora MD [place], [place] : 1965 AGE: 54 SEX: F [id number] LOC: SHADI PHONE #: [phone] EXAM DATE: 04/06/2020 STATUS: PRE SDC FAX #: [phone] RAD NO: DC Dt: PAGE 1 Signed ReportGLUCOSE BEDSIDE [id number] 07:49:00 Test Item Value Reference Range Interpretation Comments GLUCOSE BEDSIDE TESTING (test code 141 MG/DL 70-119 H = GLUBED) Novel Coronavirus 2018 [id number] 18:08:00 Test Item Value Reference Range Interpretation Comments Novel Coronavirus Not Detected Not Detected Testing wa s performed 2018 Inhouse (test using the Aptima code = COVNONPUI) SARS-CoV-2 assay.This nucleic acid amplification t est was developed and itsperformance characteristics determined by [facility]. Nucleic acid amplification t ests include [...] frannie gnosis of COVID-19 infect ion under ikxqwfr828(b)(1 ) of the Act, 21 U.S.C. 360bbb-3(b) [...] t in this assay.Performed At: HD [facility] [address] [id number] fady Gillis MD Ph:[phone] UR HCG [id number] 16:55:00 Test Item Value Reference Range Interpretation Comments UR HCG QUAL (test NEGATIVE NEG Very dilut e urines with a code = HCGQLU) low specific gravity may notcontain repr esentative levels of hCG. - XR CHEST 2 [id number] 16:55:00 [facility] : 1965 Sex: F FAX: Luis Eisenberg MD [phone] [place]: O St: PRE Patient Name: SRINI JOSÉ BUNNY Unit No: [id number] EXAMS: CPT CODE: [id number] XR CHEST 2 V 87457 - XR CHEST 2 VLOCATION: T18 INDICATION:Preop, [...] Cony Orig Print D/T: S: 03/01/2020 (1657) JAY Treviño NAME: SRINI JOSÉ [facility] IMAG[facility] DEPARTMENT PHYS: Luis Mora MD [address] [place] [address] BLVD : 1965 AGE: 54 SEX: F [place], [place] [address] LOC: LORRAINEUPHONE #: [phone] EXAM DATE: 03/01/2020 STATUS: [place] [facility] [place] #: [phone] RAD NO: DC Dt: PAGE 1 Signed ReportCOMPREHENSIVE METABOLIC [id number] 16:39:00 Test Item Value Reference Range Interpretation [...] code = LIPINDEX) MG Index/DL COMPREHENSIVE METABOLIC [id number] 16:34:00 Test Item Value Reference Range Interpretation [...] MG 1 NORMAL = LIPINDEX) Index/DL HGB [id number] 16:22:00 Test Item Value Reference Range Interpretation Comments RED BLOOD CELL (test code = RBC) 4.61 M/mm3 3.8-5.5 N HEMOGLOBIN (test code = HGB) 13.6 G/DL 10.6-15.8 N HEMATOCRIT (test code = HCT) 42.7 % 31.8-47.4 N MEAN CELL VOLUME (test code = MCV) 92.6 fL 80.1-101.1 N
--- NOTE | 2021-03-18 00:28 | EDPHYS ---
Physician Documentation [facility] Name: Brandee Rajan Age: 55 yrs Sex: Female : 1965 Arrival Date: 03/17/2021 Time: 19:16 Bed 5 Private MD: ED Physician Chauncey Howell HPI: 03/18 01:17 This 55 yrs old Female presents to ER via Ambulatory with complaints of Abscess. kdr 01:17 The patient presents with an abscess of the left labia majora, the patient presents kdr with a swollen area of the left labia majora. Description: swollen. Onset: The symptoms/episode began/occurred gradually, 1 week(s) ago. Possible cause(s): unknown. Associated signs and symptoms: The patient has no apparent associated signs or symptoms. Modifying factors: the symptoms are alleviated by nothing, the symptoms are aggravated by walking, squeezing the lesion and expressing the contents, touching. Severity of symptoms: At their worst the symptoms were mild, moderate, just prior to arrival, in the emergency department the symptoms are unchanged. The patient has not experienced similar symptoms in the past. The patient has not recently seen a physician. Seen by Dr. Nicole earlier in the week and had an I\T\D of the left labial abscess. The wound was packed with a small amount of iodoform gauze. Patient states that subsequently she was to have home health come out and address the wound on a daily basis but that had never been arranged. Since that at home and she feels that the packing has probably come out and she continues to have tenderness in that area despite the drainage. Further she was not put on antibiotics at the time of the initial I\T\D. The patient does not appear toxic or in otherwise acutely ill. 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 - Social history:: Smoking status: Patient reports the use of cigarette tobacco products, smokes one pack cigarettes per day. ROS: 03/18 01:17 Constitutional: Negative for fever, chills, and weight loss, Eyes: Negative for injury, kdr pain, redness, and discharge, Neck: Negative for injury, pain, and swelling, Cardiovascular: Negative for chest pain, palpitations, and edema, Respiratory: Negative for shortness of breath, cough, wheezing, and pleuritic chest pain, Abdomen/GI: Negative for abdominal pain, nausea, vomiting, diarrhea, and constipation, Back: Negative for injury and pain, : Negative for injury, bleeding, discharge, and swelling, MS/Extremity: Negative for injury and deformity, Neuro: Negative for headache, weakness, numbness, tingling, and seizure activity. Psych: Negative for depression, anxiety, suicide ideation, homicidal ideation, and hallucinations, Allergy/Immunology: Negative for hives, rash, and allergies, Endocrine: Negative for neck swelling, polydipsia, polyuria, polyphagia, and marked weight changes, Hematologic/Lymphatic: Negative for swollen nodes, abnormal bleeding, and unusual bruising. Skin: Positive for abscess, cellulitis, erythema, swelling, of the left labia majora. Exam: 01:17 Constitutional: This is a well developed, well nourished patient who is awake, alert, kdr and in no acute distress. Head/Face: Normocephalic, atraumatic. Eyes: Pupils equal round and reactive to light, extra-ocular motions intact. Lids and lashes normal. Conjunctiva and sclera are non-icteric and not injected. Cornea within normal limits. Periorbital areas with no swelling, redness, or edema. Neck: Trachea midline, no thyromegaly or masses palpated, and no cervical lymphadenopathy. Supple, full range of motion without nuchal rigidity, or vertebral point tenderness. No Meningismus. Chest/axilla: Normal chest wall appearance and motion. Nontender with no deformity. No lesions are appreciated. Cardiovascular: Regular rate and rhythm with a normal S1 and S2. No gallops, murmurs, or rubs. Normal PMI, no JVD. No pulse deficits. Respiratory: Lungs have equal breath sounds bilaterally, clear to auscultation and percussion. No rales, rhonchi or wheezes noted. No increased work of breathing, no retractions or nasal flaring. Abdomen/GI: Soft, non-tender, with normal bowel sounds. No distension or tympany. No guarding or rebound. No evidence of tenderness throughout. Back: No spinal tenderness. No costovertebral tenderness. Full range of motion. MS/ Extremity: Pulses equal, no cyanosis. Neurovascular intact. Full, normal range of motion. Neuro: Awake and alert, GCS 15, oriented to person, place, time, and situation. Cranial nerves II-XII grossly intact. Motor strength 5/5 in all extremities. Sensory grossly intact. Cerebellar exam normal. Normal gait. Psych: Awake, alert, with orientation to person, place and time. Behavior, mood, and affect are within normal limits. 01:17 Skin: abscess, that is small, Less than 1 cm per electrocardiographic technician, cellulitis, that is minimal, induration, that is mild is noted. Vital Signs: 03/17 20:14 BP 150 / 65; Pulse 86; Resp 16 S; Temp 97.3(TE); Pulse Ox 98% on R/A; Weight 104.33 kg bb (R); Height 5 ft. 4 in. (162.56 cm) (R); Pain 4/10; 22:45 BP 143 / 89; Pulse 74; Resp 18; Pulse Ox 98% on R/A; mk 23:32 BP 144 / 81; Pulse 78; Resp 18; Pulse Ox 98% on R/A; mk 03/18 00:39 BP 151 / 59; Pulse 71; Resp 18; Pulse Ox 97% ; sm5 00:40 Temp 98.5; mk 03/17 20:14 Body Mass Index 39.48 (104.33 kg, 162.56 cm) bb [place] Coma Score: 03/17 22:45 Eye Response: spontaneous(4). Verbal Response: oriented(5). Motor Response: obeys mk commands(6). Total: 15. 23:32 Eye Response: spontaneous(4). Verbal Response: oriented(5). Motor Response: obeys mk commands(6). Total: 15. 03/18 00:40 Eye Response: spontaneous(4). Verbal Response: oriented(5). Motor Response: obeys mk commands(6). Total: 15. MDM: 00:28 Patient medically screened. kdr 01:17 Data reviewed: vital signs, nurses notes, lab test result(s), radiologic studies. kdr Counseling: I had a detailed discussion with the patient and/or guardian regarding: the historical points, exam findings, and any diagnostic results supporting the discharge/admit diagnosis, radiology results, the need for outpatient follow up. ED course: I discussed with the patient the fact that the remaining abscess was less than 1 cm in diameter. Given that she had not been on antibiotics, will start her on antibiotics and let her follow-up on Friday with Dr. Nicole. 03/17 23:48 Order name: US Adith[facility] [employer] kdr Administered Medications: 00:46 Drug: Clindamycin 300 mg Route: PO; sm5 00:54 Follow up: Response: No adverse reaction 00:46 Drug: Bactrim (trimethoprim-sulfamethoxazole) (160 mg-800 mg (DS) 1 tablet Route: PO; sm5 00:55 Follow up: Response: No adverse reaction mk Disposition Summary: 03/18/21 00:28 Discharge Ordered Location: Home kdr Problem: an ongoing problem kdr Symptoms: are unchanged kdr Condition: Stable kdr Diagnosis - Cellulitis of left lateral anterior labia with residual subcentimeter abscess. kdr Followup: kdr - With: Private Physician - When: 2 - 3 days - Reason: Wound Recheck, If symptoms return, Further diagnostic work-up, Recheck today's complaints, Continuance of care, Re-evaluation by your physician Discharge Instructions: - Discharge Summary Sheet kdr - Skin Abscess, [id number] kdr - Cellulitis, Adult, [id number] kdr Forms: - Medication Reconciliation Form kdr - Thank You Letter kdr - Antibiotic Education kdr - Prescription Opioid Use kdr Prescriptions: - Clindamycin HCl 300 mg Oral Capsule - take 1 capsule by ORAL route every 6 hours for 10 days; 40 capsule; Refills: 0, kdr Product Selection Permitted - Tramadol 50 mg Oral Tablet - take 1 tablet by ORAL route every 8 hours as needed; 12 tablet; Refills: 0, kdr Product Selection Permitted - Diflucan 150 mg Oral Tablet - take 1 tablet by ORAL route one time for 1 day; 1 tablet; Refills: 0, Product kdr Selection Permitted - Bactrim DS 800-160 mg Oral Tablet - take 1 tablet by ORAL route every 12 hours for 10 days; 20 tablet; Refills: 0, kdr Product Selection Permitted Signatures: Dispatcher [employer] EDMS Chauncey Howell MD MD kdr Ballard, Brenda, RN RN bb Lucinda Smith RN RN Loc Kraft Madeline RN mk Corrections: (The following items were deleted from the chart) 03/17 18: 19:17 Allergies: Aspirin; ab2 ab2 :41 19:17 Allergies: Demerol; ab2 ab2 :41 19:17 Allergies: Ibuprofen; ab2 ab2 :41 19:17 Allergies: Morphine; ab2 ab2 :41 19:17 Allergies: Codeine; ab2 ab2 19:41 19:17 Allergies: Latex, Natural Rubber; ab2 ab2 :41 19:17 Allergies: Sulfa (Sulfonamide Antibiotics); ab2 ab2 :41 19:17 Allergies: Iodine; ab2 ab2 :41 19:17 Allergies: Oxycodone; ab2 ab2 :41 19:17 Allergies: Tetanus Vaccines \T\ Toxoid; ab2 ab2 :41 19:17 Allergies: PENICILLINS; ab2 ab2 19:41 19:17 Home Meds: 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 Patient/guardian denies using alcohol, street drugs, IV drugs, ab2
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
[2021-03-18] MEDS ORDERED: SMZ./TMP. 800/160 MG TABLET ONE (00:42)
[2021-03-18 01:28] VITALS: BP 151/59; O2SAT 97
[2021-03-18 01:29] VITALS: TEMP 98.5
--- NOTE | 2021-03-18 11:21 | RAD REPORT ---
EXAM DESCRIPTION: US - Extremity Nonvascular Limited - 03/18/2021 12:25 am CLINICAL HISTORY: Labial pain and swelling COMPARISON: None FINDINGS: 1 centimeter hypoechoic fluid collection is present within the soft tissues of the left la josef approximately 1.3 centimeters from the skin surface. IMPRESSION: 1 centimeter fluid collection within the soft tissues of the left labia made indicate a small abscess
== END 2021-03-18 00:56 | disposition home or self-care (01) ==
LOC: ER 19:15
DX: N76.2 Acute vulvitis (principal); F17.210 Nicotine dependence, cigarettes, uncomplicated
CPT/HCPCS: 76882; 99284

== ENCOUNTER 2021-12-22 15:31 | Emergency (ER) | payer OTHER ==
--- OUTSIDE RECORDS SUMMARY | 2021-12-22 15:41 | XMS REPORT | Continuity of Care Document ---
:1965 Author Organization [facility] t Address Critical access hospital[address] [place] [place] [address] Care Team Providers Name Role Phone Jessa Ruelas Primary Care Physician Jessa Ruelas L Attending Clinician Unavailable Elders, Luis Mcdonald Attending Clinician Unavailable Doctor Unassigned, [place] Attending Clinician Unavailable TERESA ESPANA Attending Clinician Unavailable Teresa Espana MD Attending Clinician Physician, No Primary or Family Admitting Clinician Unavaila ble TERESA ESPANA Admitting Clinician Unavailable Payers Payer Name Policy Type Policy Number Effective Date Expiration Date Nidia marie [employer]UMAN MEDICARE 53 [id number] 2021 Common Sp valorie 00:00:00 - [facility] MEDICARE C1 [id number] 2019 Common Sp valorie 00:00:00 - [facility] MEDICARE C1 [id number] 2019 Common Sp valorie 00:00:00 - [facility] [employer] MEDICARE C1 [id number] 2019 Common Sp valorie 00:00:00 - [facility] MEDICARE C1 [id number] 2019 Common Sp valorie 00:00:00 [facility] MEDICARE C1 [id number] 2019 Common Sp valorie 00:00:00 - [facility] [employer]MANA MEDICARE C1 [id number] 2019 Common Sp valorie 00:00:00 [facility] MEDICARE C1 [id number] 2019 Common Sp valorie 00:00:00 - [facility] MEDICARE C1 [id number] 2019 Common Sp valorie 00:00:00 [facility] Problems Condition Condition Condition Status Onset Resolution Last Treating Co mments Source Name Details Category Date Date Treatment Clinician Date Adrenal Adrenal Disease Active Univers mass 1 cm mass 1 cm 3-20 ity of [place] 4 [place] diameter 00 [place] Branch [id number] Type 2 [place] [id number] diabetes Spirit mellitus - [facility] with [facility] Sinus Sinus Problem Common problem problem Spirit - [facility] [id number] 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 [facility] neuropathy Medica l , Center unspecifie d [id number] Mixed Problem Common hyperlipid Spirit emia - [facility] [id number] Other Problem Common chronic Spirit pain - [facility] [id number] Depression Problem Co mmon with Spirit anxiety - [facility] Gallstones Gallstones Problem C ommon Spirit - [facility] [id number] Type 2 Problem Common diabetes Spirit mellitus - CHI without complicati [facility] [id number] Mixed Problem Common stress and Spirit urge - CHI urinary [facility] [id number] care home Problem Com mon (current) Spirit use of - [facility] insulin [facility] [id number] Cigarette Problem Comm on nicotine Spirit dependence - CHI with nicotine-i [facility] nduced Medical disorder Center [id number] Chronic Problem Common obstructiv Spirit [facility] Center type Gastroesop Gastroesop Problem C [facility] hageal hageal Spirit reflux reflux - [facility], [facility] Medica l not Center specified Anxiety Anxiety Problem Common [facility] Allergic Allergic Problem Commo n rhinitis rhinitis [facility] Diabetes Diabetes Problem Commo n mellitus Spirit without - CHI complicati [facility] [id number] 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 [id number] Essential Problem Comm on hypertensi Spirit on - [facility] [id number] Acute Problem Common bronchitis Spirit , - CHI unspecifie [facility] [id number] Lumbar Problem Common degenerati Spirit ve disc - [facility] disease [facility] [id number] Lesion of Problem Co mmon plantar Spirit nerve, - CHI left lower limb [facility] [id number] Pain in Problem Comm on left foot [facility] [id number] Posterior Problem Co mmon tibial Spirit tendinitis - CHI , left leg [facility] Seizure Seizures Problem Common [facility] Memory Memory Problem Common problem problem [facility] Acquired Acquired Problem Commo n hypothyroi hypothyroi Sp valorie dism dism [facility] [id number] Suspected Problem Com mon ingested Spirit foreign - CHI body not [facility] after Medical observatio Center n [id number] Chronic Problem Common fatigue [facility] [id number] Leukocytos Problem Co mmon is, Spirit unspecifie - [facility]I d type [facility] 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 without y without macular macular edema, edema, without without long-term long-term current current use of use of insulin insulin [id number] Primary Problem Comm on osteoarthr Spirit itis of - CHI right knee [facility] [id number] Postmenopa Problem Com mon usal Spirit bleeding - [facility] Depression Depression Problem C ommon Spirit - [facility] Allergies, Adverse Reactions, Alerts Allergy Allergy Status Severity Reaction(s) Onset Inactive Treating Comm ents Source Name Type Date Date Clinician samantha DA Active [facility] d 04[facility]06 [place] [facility] ragweed DA Active PA [facility] pollen 04-06 [place] 00:[facility] cedarwoo DA Active PA SINUS [facility] d PROBLEMS 04-06 [place] 00:[facility] ragweed DA Active PA SINUS [facility] pollen PROBLEMS 04-06 [place] 00:00: [facility] No Known DA Active U 2019-03 [facility] Allergie 05-02 [place] s 00:00: [facility] Critical access hospital No Known DA Active U 2019-03 [facility] Allergie 05-02 [place] s 00:00: [facility] Critical access hospital Social History Social Habit Start Date Stop Date Quantity Comments Source History of Current Smoker Common Spi rit - Tobacco Use [facility] Sex Assigned At Common Sp valorie - [facility] Exposure to 2021-10-20 2021-10-30 Not sure [facility]-CoV-2 00:00:00 11:49:00 [place] [facility] (event[facility] Branch Smoking Status Start Date Stop Date Source Tobacco smoking consumption Univ [facility] unknown Branch Current Smoker 2021-11-15 00:00:00 Common Spiri t - [facility] nter Medications Ordered Filled Start Stop Current Ordering Indication Dosage Frequency Signature Comments Components Source Medication Medication Date Date Medication? Clinician (SIG) Name Name amLODIPine amLODIPine No 1{table amLODIPine Besylate 5 Besylate 5 11-15 t} Besylate 5 MG MG 00:00: MG 00 amLODIPine amLODIPine No 1{table amLODIPine Besylate 5 Besylate 5 11-15 t} Besylate 5 MG MG 00:00: MG 00 amLODIPine amLODIPine No 1{table amLODIPine Besylate 5 Besylate 5 11-15 t} Besylate 5 MG MG 00:00: MG 00 mirabegron 2021- No 50mg Take 50 mg Univers (MYRBETRIQ) 10-30 by mouth ity of 50 mg 19:09: 00:00 daily. [place] tablet 35 :00 Medical Branch mirabegron 2021- No 50mg Take 50 mg Univers (MYRBETRIQ) 10-30-23 by mouth ity of 50 mg 19:09: 00:00 daily. [place] tablet 35 :00 Medical Branch Insulin 2021- No 68U inject 68 Univ ers Glargine 10-30-23 Units ity of (LANTUS 12:32: [place] 16 :00 skin Medical U-100 daily. Per Branch INSULIN) sliding 100 unit/mL scale (3 mL) injection Insulin 2021- No 68U inject 68 Univ ers Glargine 10-30 08-23 Units ity of (LANTUS 12:32: [place] SOL[place] 16 :00 skin Medical U-100 daily. Per Branch INSULIN) sliding 100 unit/mL scale (3 mL) injection insulin Yes [id number] 80U inject 80 Univers glargine 8-23 Units ity of U-300 conc [place] (TOUJEO MAX 00 skin Medical U-300 daily. [facility]) E11.65 300 unit/mL (3 mL) InPn dulaglutide Yes [id number] .75mg inject 1 Univers (TRULICITY) 8- Pen under ity of 0.75 mg/0.5 00:[place]: [place] mL PnIj 00 weekly. Medical Branch metformin Yes [id number] 750mg Take 1 Univers ER 750 mg 8-23 tablet by ity o f 24 hr 00:00: mouth in [place] tablet 00 the Medical morning Branch and 1 tablet in the evening. Take with meals. empaglifloz Yes [id number] 25mg Take 1 Univers in 8-23 tablet by ity of (JARDIANCE) 00:00: mouth [place] 25 mg Tab 00 every Medical morning. Branch insulin Yes [id number] 80U inject 80 Univers glargine 8-23 Units ity of U-300 conc 00:00: [place] the [place] (TOUJEO MAX 00 skin Medical U-300 daily. [facility]) E11.65 300 unit/mL (3 mL) InPn dulaglutide Yes [id number] .75mg inject 1 Univers (TRULICITY) 8-23 Pen under ity of 0.75 mg/0.5 00:00: the [place] mL PnIj 00 weekly. Medical Branch metformin Yes [id number] 750mg Take 1 Univers ER 750 mg 8-23 tablet by ity o f 24 hr 00:00: mouth in [place] tablet 00 the Medical morning Branch and 1 tablet in the evening. Take with meals. empaglifloz Yes [id number] 25mg Take 1 Univers in 8-23 tablet by ity of (JARDIANCE) 00:00: mouth [place] 25 mg Tab 00 every Medical morning. Branch insulin Yes [id number] 80U inject 80 Univers glargine 8-23 Units ity of U-300 conc 00:00: [place] the [place] (TOUJEO MAX 00 skin Medical U-300 daily. Branch SOLOSTAR) E11.65 300 unit/mL (3 mL) InPn dulaglutide Yes [id number] .75mg inject 1 Univers (TRULICITY) 8-23 Pen under ity of 0.75 mg/0.5 00:00: the [place] mL PnIj 00 weekly. Medical Branch metformin Yes [id number] 750mg Take 1 Univers ER 750 mg 8-23 tablet by ity o f 24 hr 00:00: mouth in [place] tablet 00 the Medical morning Branch and 1 tablet in the evening. Take with meals. empaglifloz 0 Yes [id number] 25mg Take 1 Univers in 8-23 tablet by ity of (JARDIANCE) 00:00: mouth [place] 25 mg Tab 00 every Medical morning. Branch ACCU-CHEK Yes TEST 2 Univer s GUIDE TEST 8-13 TIMES ity of STRIPS 00:00: DAILY [place] strip 00 Medical Branch ACCU-CHEK 0 Yes TEST 2 Univer s GUIDE TEST 8-13 TIMES ity of STRIPS 00:00: DAILY [place] strip 00 Medical Branch ACCU-CHEK 0 Yes TEST 2 Univer s GUIDE TEST 8-13 TIMES ity of STRIPS 00:00: DAILY [place] strip 00 Medical Branch gabapentin 2022-0 Yes Univers 300 mg 8-12 ity of capsule 00:00: [place] 00 Medical Branch gabapentin 2021-0 Yes Univers 300 mg 8-12 ity of capsule 00:00: [place] 00 Medical Branch gabapentin 2021-0 Yes Univers 300 mg 8-12 ity of capsule 00:00: [place] 00 Medical Branch Nystatin Nystatin 2021-0 2022- No 1{appli BID Nystatin [id number] 8- 08-25 cation_ [id number] UNIT/GM UNIT/GM 00:00: 00:00 to_affe UNIT/GM 00 :00 cted_ar ea} Mupirocin 2 Mupirocin 2 2021- No TID Mupirocin % % 8- 08-25 2 % 00:00: 00:00 00 :00 Nystatin Nystatin 2021-0 2021- No 1{appli BID Nystatin [id number] 8- 08-25 cation_ [id number] UNIT/GM UNIT/GM 00:00: 00:00 to_affe UNIT/GM 00 :00 cted_ar ea} Mupirocin 2 Mupirocin 2 2021- No TID Mupirocin % % 8- 08-25 2 % 00:00: 00:00 00 :00 Nystatin Nystatin 2021-0 2021- No 1{appli BID Nystatin [id number] 8- 08-25 cation_ [id number] UNIT/GM UNIT/GM 00:00: 00:00 to_affe UNIT/GM 00 :00 cted_ar ea} Mupirocin 2 Mupirocin 2 2021-2021- No TID Mupirocin % % 8 08-25 2 % 00:00: 00:00 00 :00 JANUMET 2021-0 202- No Univers 50-1,000 mg 7- 08-23 ity of per tablet 00:00: 00:00 [place] 00 :00 Medical Branch JANUMET 2021-0 2021- No Univers 50-1,000 mg 7-30 10-23 ity of per tablet 00:00: 00:00 [place] 00 :00 Medical Branch losartan 50 2021-0 Yes Univer s mg tablet 7-08 ity of 00:00: [place] 00 Medical Branch losartan 50 2021-0 Yes Univer s mg tablet 7-08 ity of 00:00: [place] 00 Medical Branch losartan 50 2021-0 Yes Univer s mg tablet 7-08 ity of 00:00: [place] [facility] Losartan Losartan 2021-0 No 1{table QD Losartan Potassium Potassium 7-07 t} Potassium 50 MG 50 MG 00:00: 50 MG 00 Losartan Losartan 2021-0 No 1{table QD Losartan Potassium Potassium 7-07 t} Potassium 50 MG 50 MG 00:00: 50 MG 00 Losartan Losartan 2021-0 No 1{table QD Losartan Potassium Potassium 7-07 t} Potassium 50 MG 50 MG 00:00: 50 MG 00 Losartan Losartan 0 No 1{table QD Losartan Potassium Potassium 7-07 t} Potassium 50 MG 50 MG 00:00: 50 MG 00 Pantoprazol Pantoprazol 2021- No 1{table QD Pantoprazo e Sodium 40 e Sodium 40 6-07 t} le Sodium MG MG 00:00: 40 MG 00 Pantoprazol Pantoprazol 2021- No 1{table QD Pantoprazo e Sodium 40 e Sodium 40 6-07 t} le Sodium MG MG 00:00: 40 MG 00 Pantoprazol Pantoprazol 2021-0 No 1{table QD Pantoprazo e Sodium 40 e Sodium 40 6-07 t} le Sodium MG MG 00:00: 40 MG 00 Chantix 1 Chantix 1 2021- No BID Chantix 1 MG MG 5-27 08-25 MG 00:00: 00:00 00 :00 Chantix 1 Chantix 1 2021- No BID Chantix 1 MG MG 5-27 08-25 MG 00:00: 00:00 00 :00 Chantix 1 Chantix 1 2021- No BID Chantix 1 MG MG 5-27 08-25 MG 00:00: 00:00 00 :00 Chantix 1 Chantix 1 2021- No BID Chantix 1 MG MG 5-27 08-25 MG 00:00: 00:00 00 :00 Chantix 1 Chantix 1 2021- No BID Chantix 1 MG MG 5-27 08-25 MG 00:00: 00:00 00 :00 Chantix 1 Chantix 1 2021- No BID Chantix 1 MG MG 5-27 08-25 MG 00:00: 00:00 00 :00 Chantix 1 Chantix 1 2021- No BID Chantix 1 MG MG 5-27 08-25 MG 00:00: 00:00 00 :00 Chantix 1 Chantix 1 2021- No BID Chantix 1 MG MG 5-27 08-25 MG 00:00: 00:00 00 :00 pravastatin Yes 20mg Take 20 mg Univers 20 mg 2-22 by mouth ity of tablet 11:57: daily. [place] [address] Medical Branch benzonatate Yes 100{cap Take 100 Univers 100 mg 2-22 elizabeth} capsules ity of capsule 11:57: by mouth [place] 13 daily. Medical Branch vortioxetin Yes 20mg Take 20 mg Univers e 2-22 by mouth ity of ([place] 11[place] 20 mg [facility] Medical Branch ursodioL Yes 250mg Take 250 Univ ers 250 mg 2-22 mg by ity of tablet 11:57: mouth [place] 13 daily. Medical Branch pantoprazol Yes 40mg Take 40 mg Univers e 40 mg EC 2-22 by mouth ity o f tablet 11:57: daily. [place] [address] Medical Branch levothyroxi Yes 75ug Take 75 Uni vers ne 75 mcg 2-22 mcg by ity of tablet 11:57: mouth [place] 13 every Medical morning. Branch busPIRone Yes 15mg Take 15 mg Un andre 15 mg 2-22 by mouth ity of tablet 11:57: daily. [place] [address] Medical Branch cetirizine Yes 10mg Take 10 mg U nivers 10 mg 2-22 by mouth ity of tablet 11:57: daily. [address] Branch pravastatin 0 Yes 20mg Take 20 mg Univers 20 mg 2-22 by mouth ity of tablet 11:57: daily. [address] benzonatate 0 Yes 100{cap Take 100 Univers 100 mg 2-22 elizabeth} capsules ity of capsule 11:57: by mouth [place] 13 daily. Medical Branch vortioxetin 0 Yes 20mg Take 20 mg Univers e 2-22 by mouth ity of ([place] 11[place]57[place] 20 mg Tab 13 Medical Branch ursodioL 0 Yes 250mg Take 250 Univ ers 250 mg 2-22 mg by ity of tablet 11:57: mouth [place] 13 daily. Medical Branch pantoprazol 0 Yes 40mg Take 40 mg Univers e 40 mg EC 2-22 by mouth ity o f tablet 11:57: daily. [place] [address] Medical Branch levothyroxi 0 Yes 75ug Take 75 Uni vers ne 75 mcg 2-22 mcg by ity of tablet 11:57: mouth [place] 13 every Medical morning. Branch busPIRone 0 Yes 15mg Take 15 mg Un andre 15 mg 2-22 by mouth ity of tablet 11:57: daily. [place] [address] Medical Branch cetirizine 0 Yes 10mg Take 10 mg U nivers 10 mg 2-22 by mouth ity of tablet 11:57: daily. [place] [address] Medical Branch pravastatin 0 Yes 20mg Take 20 mg Univers 20 mg 2-22 by mouth ity of tablet 11:57: daily. [place] [address] Medical Branch benzonatate 0 Yes 100{cap Take 100 Univers 100 mg 2-22 elizabeth} capsules ity of capsule 11:57: by mouth [place] 13 daily. Medical Branch vortioxetin 0 Yes 20mg Take 20 mg Univers e 2-22 by mouth ity of ([place] 11:57[place]. [place] 20 mg Tab 13 Medical Branch ursodioL Yes 250mg Take 250 Univ ers 250 mg 2-22 mg by ity of tablet 11:57: mouth [place] 13 daily. Medical Branch pantoprazol 0 Yes 40mg Take 40 mg Univers e 40 mg EC 2-22 by mouth ity o f tablet 11:57: daily. [place] [address] Medical Branch levothyroxi 0 Yes 75ug Take 75 Uni vers ne 75 mcg 2-22 mcg by ity of tablet 11:57: mouth [place] 13 every Medical morning. Branch busPIRone 0 Yes 15mg Take 15 mg Un andre 15 mg 2-22 by mouth ity of tablet 11:57: daily. [place] [address] Medical Branch cetirizine 2022-0 Yes 10mg Take 10 mg U nivers 10 mg 2-22 by mouth ity of tablet 11:57: daily. [address] Varenicline Varenicline 2021- No QD Vareniclin Tartrate 1 Tartrate 1 04-10 e Tartrate MG MG 00:00: 00:00 1 MG 00 :00 Varenicline Varenicline 2021- No QD Vareniclin Tartrate 1 Tartrate 1 04-10 e Tartrate MG MG 00:00: 00:00 1 MG 00 :00 Varenicline Varenicline 2021- No QD Vareniclin Tartrate 1 Tartrate 1 04-10 e Tartrate MG MG 00:00: 00:00 1 MG 00 :00 Varenicline Varenicline 2021- No QD Vareniclin Tartrate 1 Tartrate 1 04-10 e Tartrate MG MG 00:00: 00:00 1 MG 00 :00 Varenicline Varenicline 2021- No QD Vareniclin Tartrate 1 Tartrate 1 04-10 e Tartrate MG MG 00:00: 00:00 1 MG 00 :00 Varenicline Varenicline 2021- No QD Vareniclin Tartrate 1 Tartrate 1 04-10 e Tartrate MG MG 00:00: 00:00 1 MG 00 :00 Chantix Chantix 2021- No QD Chantix Starting Starting 04-02 Starting Month Bruno Month Bruno 00:00: 00:00 Month Bruno 0.5 MG X 11 0.5 MG X 11 00 :00 0.5 MG X & 1 MG X 42 & 1 MG X 42 11 & 1 MG X 42 Chantix Chantix 2021- No QD Chantix Starting Starting 04-02 Starting Month [place] Month Bruno 00:00: 00:00 Month [place] 0.5 MG X 11 0.5 MG X 11 00 :00 0.5 MG X & 1 MG X 42 & 1 MG X 42 11 & 1 MG X 42 Pravastatin Pravastatin 2020-03 No 1{table QD Pravastati Sodium 20 Sodium 20 0-20 t} n Sodium MG MG 00:00: 20 MG 00 Pravastatin Pravastatin 2020-03 No 1{table QD Pravastati Sodium 20 Sodium 20 0-20 t} n Sodium MG MG 00:00: 20 MG 00 Pravastatin Pravastatin 2020-03 No 1{table QD Pravastati Sodium 20 Sodium 20 0-20 t} n Sodium MG MG 00:00: 20 MG 00 Pravastatin Pravastatin 2020-03 No 1{table QD Pravastati Sodium 20 Sodium 20 0-20 t} n Sodium MG MG 00:00: 20 MG 00 Pravastatin Pravastatin 2020-03 No 1{table QD Pravastati Sodium 20 Sodium 20 0-20 t} n Sodium MG MG 00:00: 20 MG 00 Pravastatin Pravastatin 2020-03 No 1{table QD Pravastati Sodium 20 Sodium 20 0-20 t} n Sodium MG MG 00:00: 20 MG 00 Pravastatin Pravastatin 2020-03 No 1{table QD Pravastati Sodium 20 Sodium 20 0-20 t} n Sodium MG MG 00:00: 20 MG 00 Pravastatin Pravastatin 2020-03 No 1{table QD Pravastati Sodium 20 Sodium 20 0-20 t} n Sodium MG MG 00:00: 20 MG 00 Pravastatin Pravastatin 2020-03 No 1{table QD Pravastati Sodium 20 Sodium 20 0-20 t} n Sodium MG MG 00:00: 20 MG 00 Pravastatin Pravastatin 2020-03 No 1{table QD Pravastati Sodium 20 Sodium 20 0-20 t} n Sodium MG MG 00:00: 20 MG 00 Pravastatin Pravastatin 2020-03 No 1{table QD Pravastati Sodium 20 Sodium 20 0-20 t} n Sodium MG MG 00:00: 20 MG 00 Pravastatin Pravastatin 2020-03 No 1{table QD Pravastati Sodium 20 Sodium 20 0-20 t} n Sodium MG MG 00:00: 20 MG 00 Pravastatin Pravastatin 2020-03 No 1{table QD Pravastati Sodium 20 Sodium 20 0-20 t} n Sodium MG MG 00:00: 20 MG 00 Pravastatin Pravastatin 2020-03 No 1{table QD Pravastati Sodium 20 Sodium 20 0-20 t} n Sodium MG MG 00:00: 20 MG 00 Benzonatate Benzonatate 2021-1 2021- No 1{capsu TID Benzonatat 100 MG 100 MG 0-15 10-29 le_as_n e 100 MG 00:00: 00:00 eeded} 00 :00 Benzonatate Benzonatate 2020-03- No 1{capsu TID Benzonatat 100 MG 100 MG 0-15 10-29 le_as_n e 100 MG 00:00: 00:00 eeded} 00 :00 Benzonatate Benzonatate 2020-03- No 1{capsu TID Benzonatat 100 MG 100 MG 0-15 10-29 le_as_n e 100 MG 00:00: 00:00 eeded} 00 :00 Benzonatate Benzonatate 2020-03- No 1{capsu TID Benzonatat 100 MG 100 MG 0-15 10-29 le_as_n e 100 MG 00:00: 00:00 eeded} 00 :00 Benzonatate Benzonatate 2020-031- No 1{capsu TID Benzonatat 100 MG 100 MG 0-15 10-29 le_as_n e 100 MG 00:00: 00:00 eeded} 00 :00 Benzonatate Benzonatate 2020-03- No 1{capsu TID Benzonatat 100 MG 100 MG 0-15 10-29 le_as_n e 100 MG 00:00: 00:00 eeded} 00 :00 Azithromyci Azithromyci 2020-031- No QD Azithromyc n 250 MG n 250 MG 0-15 10-20 in 250 MG 00:00: 00:00 00 :00 Azithromyci Azithromyci 2020-1- No QD Azithromyc n 250 MG n 250 MG 0-15 10-20 in 250 MG 00:00: 00:00 00 :00 Azithromyci Azithromyci 2020-1- No QD Azithromyc n 250 MG n 250 MG 0-15 10-20 in 250 MG 00:00: 00:00 00 :00 Azithromyci Azithromyci 2020-1- No QD Azithromyc n 250 MG n 250 MG 0-15 10-20 in 250 MG 00:00: 00:00 00 :00 FreeStyle FreeStyle 2021-0 No FreeStyle Servando 14 Servando 14 1-29 Servando 14 Day Sensor Day Sensor 00:00: Day Sensor - - 00 - FreeStyle FreeStyle 1-0 No QD FreeStyle Servando 14 Servando 14 1-29 Servando 14 Day Ashburn Day Ashburn 00:00: Day [place] - - 00 - FreeStyle FreeStyle 1-0 No FreeStyle Servando 14 Servando 14 1-29 Servando 14 Day Sensor Day Sensor 00:00: Day Sensor - - 00 - FreeStyle FreeStyle 1-0 No QD FreeStyle Servando 14 Servando 14 1-29 Servando 14 Day [place] Day Ashburn 00:00: Day [place] - - 00 - FreeStyle FreeStyle 1-0 No FreeStyle Servando 14 Servando 14 1-29 Servando 14 Day Sensor Day Sensor 00:00: Day Sensor - - 00 - FreeStyle FreeStyle 1-0 No QD FreeStyle Servando 14 Servando 14 1-29 Servando 14 Day [place] Day [place]burn 00:00: Day [place] - - 00 - FreeStyle FreeStyle 1-0 No FreeStyle Servando 14 Servando 14 1-29 Servando 14 Day Sensor Day Sensor 00:00: Day Sensor - - 00 - FreeStyle FreeStyle 1-0 No QD FreeStyle Servando 14 Servando 14 1-29 Servando 14 Day [place] Day [place] 00:00: Day [place] - - 00 - FreeStyle FreeStyle 1-0 No FreeStyle Servando 14 Servando 14 1-29 Servando 14 Day Sensor Day Sensor 00:00: Day Sensor - - 00 - FreeStyle FreeStyle 1-0 No QD FreeStyle Servando 14 Servando 14 1-29 Servando 14 Day [place] Day [place] 00:00: Day [place] - - 00 - FreeStyle FreeStyle 1-0 No QD FreeStyle Servando 14 Servando 14 1-29 Servando 14 Day [place] Day [place] 00:00: Day [place] - - 00 - FreeStyle FreeStyle 2021-0 No FreeStyle Servando 14 Servando 14 1-29 Servando 14 Day Sensor Day Sensor 00:00: Day Sensor - - 00 - FreeStyle FreeStyle 1-0 No QD FreeStyle Servando 14 Servando 14 1-29 Servando 14 Day [place] Day [place] 00:00: Day [place] - - 00 - FreeStyle FreeStyle 2021-0 No FreeStyle Servando 14 Servando 14 1-29 Servando 14 Day Sensor Day Sensor 00:00: Day Sensor - - 00 - FreeStyle FreeStyle 2021-0 No QD FreeStyle Servanod 14 Servando 14 1-29 Servando 14 Day [place] Day [place] 00:00: Day [place] - - 00 - FreeStyle FreeStyle 2021-0 No FreeStyle Servando 14 Servando 14 1-29 Servando 14 Day Sensor Day Sensor 00:00: Day Sensor - - 00 - FreeStyle FreeStyle 1-0 No FreeStyle Servando 14 Servando 14 1-29 Servando 14 Day Sensor Day Sensor 00:00: Day Sensor - - 00 - FreeStyle FreeStyle 2021-0 No QD FreeStyle Servando 14 Servando 14 1-29 Servando 14 Day [place] Day [place] 00:00: Day [place] - - 00 - FreeStyle FreeStyle 1-0 No FreeStyle Servando 14 Servando 14 1-29 Servando 14 Day Sensor Day Sensor 00:00: Day Sensor - - 00 - FreeStyle FreeStyle 1-0 No QD FreeStyle Servando 14 Servando 14 1-29 Servando 14 Day [place] Day [place] 00:00: Day [place] - - 00 - FreeStyle FreeStyle 2021-0 No FreeStyle Servando 14 Servando 14 1-29 Servando 14 Day Sensor Day Sensor 00:00: Day Sensor - - 00 - FreeStyle FreeStyle 1-0 No QD FreeStyle Servando 14 Servando 14 1-29 Servando 14 Day [place] Day [place] 00:00: Day [place] - - 00 - Flonase 50 Flonase 50 2019- No 2{spray QD Flonase 50 MCG/ACT MCG/ACT 03-15 _in_eac MCG/ACT 00:00: h_nostr 00 il} Flonase 50 Flonase 50 2019-03 No 2{spray QD Flonase 50 MCG/ACT MCG/ACT 03-15 _in_eac MCG/ACT 00:00: h_nostr 00 il} Flonase 50 Flonase 50 2020-1 No 2{spray QD Flonase 50 MCG/ACT MCG/ACT - _in_eac MCG/ACT 00:00: h_nostr 00 il} Flonase 50 Flonase 50 2019- No 2{spray QD Flonase 50 MCG/ACT MCG/ACT - _in_eac MCG/ACT 00:00: h_nostr 00 [place]} Flonase 50 Flonase 50 2019- No 2{spray QD Flonase 50 MCG/ACT MCG/ACT 03-15 _in_eac MCG/ACT 00:00: h_nostr 00 il} Flonase 50 Flonase 50 2019-03 No 2{spray QD Flonase 50 MCG/ACT MCG/ACT 03-15 _in_eac MCG/ACT 00:00: h_nostr 00 [place]} Flonase 50 Flonase 50 2019-03 No 2{spray QD Flonase 50 MCG/ACT MCG/ACT 03-15 _in_eac MCG/ACT 00:00: h_nostr 00 [place]} Flonase 50 Flonase 50 2019- No 2{spray QD Flonase 50 MCG/ACT MCG/ACT - _in_eac MCG/ACT 00:00: h_nostr 00 il} Flonase 50 Flonase 50 2019-03 No 2{spray QD Flonase 50 MCG/ACT MCG/ACT - _in_eac MCG/ACT 00:00: h_nostr 00 il} Flonase 50 Flonase 50 2019- No 2{spray QD Flonase 50 MCG/ACT MCG/ACT 03-15 _in_eac MCG/ACT 00:00: h_nostr 00 il} Flonase 50 Flonase 50 2019- No 2{spray QD Flonase 50 MCG/ACT MCG/ACT - _in_eac MCG/ACT 00:00: h_nostr 00 il} Keflex Keflex 2020-0 2020- No [facility] 1 capsule Common 11-22 [facility] [place] [facility] [place] Bactrim DS 2020-0 2020- No Na [facility]uel[facility] 1 tablet Common 11-22 [facility]: [facility] [place] [facility] [place] Ursodiol Ursodiol 2020-0 Yes Na [facility]uel[facility] 1 tablet Common 11-16 with food [facility]: [facility] [place] [facility] [place] Triamcinolo Triamcinolo 2020-0 Yes Na Ruelas 1 Common ne ne 2-14 applicatio [facility] Acetonide Acetonide 00:00: n to - C HI 00 affected [facility] Triamcinolo Triamcinolo 2020-0 No 1{appli BID Triamcinol ne ne 2-14 cation_ one Acetonide Acetonide 00:00: to_affe Acetonide 0.5 % 0.5 % 00 cted_ar 0.5 % ea} Triamcinolo Triamcinolo 2020-0 No 1{appli BID Triamcinol ne ne 2-14 cation_ one Acetonide Acetonide 00:00: to_affe Acetonide 0.5 % 0.5 % 00 cted_ar 0.5 % ea} Triamcinolo Triamcinolo 2020-0 No 1{appli BID Triamcinol ne ne 2-14 cation_ one Acetonide Acetonide 00:00: to_affe Acetonide 0.5 % 0.5 % 00 cted_ar 0.5 % ea} Triamcinolo Triamcinolo 2020-0 No 1{appli BID Triamcinol ne ne 2-14 cation_ one Acetonide Acetonide 00:00: to_affe Acetonide 0.5 % 0.5 % 00 cted_ar 0.5 % ea} Triamcinolo Triamcinolo 2020-0 No 1{appli BID Triamcinol ne ne 2-14 cation_ one Acetonide Acetonide 00:00: to_affe Acetonide 0.5 % 0.5 % 00 cted_ar 0.5 % ea} Triamcinolo Triamcinolo 2020-0 No 1{appli BID Triamcinol ne ne 2-14 cation_ one Acetonide Acetonide 00:00: to_affe Acetonide 0.5 % 0.5 % 00 cted_ar 0.5 % ea} Triamcinolo Triamcinolo 2020-0 No 1{appli BID Triamcinol ne ne 2-14 cation_ one Acetonide Acetonide 00:00: to_affe Acetonide 0.5 % 0.5 % 00 cted_ar 0.5 % ea} Triamcinolo Triamcinolo No 1{appli BID Triamcinol ne ne 2-14 cation_ one Acetonide Acetonide 00:00: to_affe Acetonide 0.5 % 0.5 % 00 cted_ar 0.5 % ea} Triamcinolo Triamcinolo No 1{appli BID Triamcinol ne ne 2-14 cation_ one Acetonide Acetonide 00:00: to_affe Acetonide 0.5 % 0.5 % 00 cted_ar 0.5 % ea} Triamcinolo Triamcinolo No 1{appli BID Triamcinol ne ne 2-14 cation_ one Acetonide Acetonide 00:00: to_affe Acetonide 0.5 % 0.5 % 00 cted_ar 0.5 % ea} Triamcinolo Triamcinolo No 1{appli BID Triamcinol ne ne 2-14 cation_ one Acetonide Acetonide 00:00: to_affe Acetonide 0.5 % 0.5 % 00 cted_ar 0.5 % ea} Nebulizer Nebulizer Yes Na [facility]uelas as Common Air Air 2-03 directed [facility] Tube/Plugs Tube/Plugs [facility]: [facility] [place] [facility] [place] Nebulizer 0 No Nebulizer Air Air 2-03 Air Tube/Plugs Tube/Plugs 00:00: Tube/Plugs - - 00 - Nebulizer Nebulizer 0 No Nebulizer Air Air 2-03 Air Tube/Plugs Tube/Plugs 00:00: Tube/Plugs - - 00 - Nebulizer Nebulizer 0 No Nebulizer Air Air 2-03 Air Tube/Plugs Tube/Plugs 00:00: Tube/Plugs - - 00 - Nebulizer Nebulizer 0 No Nebulizer Air Air 2-03 Air Tube/Plugs Tube/Plugs 00:00: Tube/Plugs - - - Nebulizer Nebulizer 0 No Nebulizer Air Air 2-03 Air Tube/Plugs Tube/Plugs 00:00: Tube/Plugs - - 00 - Nebulizer Nebulizer 0 No Nebulizer Air Air 2-03 Air Tube/Plugs Tube/Plugs 00:00: Tube/Plugs - - 00 - Nebulizer Nebulizer 2019-0 No Nebulizer Air Air 2-03 Air Tube/Plugs Tube/Plugs 00:00: Tube/Plugs - - 00 - Nebulizer Nebulizer 2019-0 No Nebulizer Air Air 2-03 Air Tube/Plugs Tube/Plugs 00:00: Tube/Plugs - - 00 - Nebulizer Nebulizer 2019-0 No Nebulizer Air Air 2-03 Air Tube/Plugs Tube/Plugs 00:00: Tube/Plugs - - 00 - Nebulizer Nebulizer 2019-0 No Nebulizer Air Air 2-03 Air Tube/Plugs Tube/Plugs 00:00: Tube/Plugs - - 00 - Nebulizer Nebulizer 2019-0 No Nebulizer Air Air 2-03 Air Tube/Plugs Tube/Plugs 00:00: Tube/Plugs - - 00 - Nebulizer Nebulizer 2019-0 No Nebulizer Air Air 2-03 Air Tube/Plugs Tube/Plugs 00:00: Tube/Plugs - - 00 - Nebulizer Nebulizer 2019-0 No Nebulizer Air Air 2-03 Air Tube/Plugs Tube/Plugs 00:00: Tube/Plugs - - 00 - Nebulizer Nebulizer 2019-0 No Nebulizer Air Air 2-03 Air Tube/Plugs Tube/Plugs 00:00: Tube/Plugs - - 00 - Nebulizer Nebulizer 2019-0 No Nebulizer Air Air 2-03 Air Tube/Plugs Tube/Plugs 00:00: Tube/Plugs - - 00 - Nebulizer Nebulizer 2019-0 No Nebulizer Air Air 2-03 Air Tube/Plugs Tube/Plugs 00:00: Tube/Plugs - - 00 - Nebulizer Nebulizer 2019-0 No Nebulizer Air Air 2-03 Air Tube/Plugs Tube/Plugs 00:00: Tube/Plugs - - 00 - Nebulizer Nebulizer 2019-0 No Nebulizer Air Air 2-03 Air Tube/Plugs Tube/Plugs 00:00: Tube/Plugs - - 00 - Nebulizer Nebulizer 2020-0 No Nebulizer Air Air 2-03 Air Tube/Plugs Tube/Plugs 00:00: Tube/Plugs - - 00 - Nebulizer Nebulizer 2019-0 No Nebulizer Air Air 2-03 Air Tube/Plugs Tube/Plugs 00:00: Tube/Plugs - - 00 - Nebulizer Nebulizer 2019-0 No Nebulizer Air Air 2-03 Air Tube/Plugs Tube/Plugs 00:00: Tube/Plugs - - 00 - Nebulizer Nebulizer 2019-0 No Nebulizer Air Air 2-03 Air Tube/Plugs Tube/Plugs 00:00: Tube/Plugs - - 00 - Nebulizer Nebulizer 2019-0 No Nebulizer Air Air 2-03 Air Tube/Plugs Tube/Plugs 00:00: Tube/Plugs - - 00 - Nebulizer Nebulizer 2019-0 No Nebulizer Air Air 2-03 Air Tube/Plugs Tube/Plugs 00:00: Tube/Plugs - - 00 - Nebulizer Nebulizer 2019-0 No Nebulizer Air Air 2-03 Air Tube/Plugs Tube/Plugs 00:00: Tube/Plugs - - 00 - Nebulizer Nebulizer 2019-0 No Nebulizer Air Air 2-03 Air Tube/Plugs Tube/Plugs 00:00: Tube/Plugs - - 00 - Nebulizer Nebulizer 2019-0 No Nebulizer Air Air 2-03 Air Tube/Plugs Tube/Plugs 00:00: Tube/Plugs - - 00 - Nebulizer Nebulizer 2019-0 No Nebulizer Air Air 2-03 Air Tube/Plugs Tube/Plugs 00:00: Tube/Plugs - - 00 - Nebulizer Nebulizer 2019-0 No Nebulizer Air Air 2-03 Air Tube/Plugs Tube/Plugs 00:00: Tube/Plugs - - 00 - Accu-Chek Accu-Chek No BID Accu-Chek Sarika Plus Sarika Plus Sarika Plus - - - Janumet Janumet No 1{table BID Janumet 50-1000 MG 50-1000 MG t_with_ 50-1000 MG meals} Cetirizine Cetirizine No 1{table QD Cetirizine HCl 10 MG HCl 10 MG t} HCl 10 MG Albuterol Albuterol No 3{ml_as TID Albuterol Sulfate Sulfate _needed Sulfate (2.5 (2.5 } (2.5 MG/3ML) MG/3ML) MG/3ML) 0.083% 0.083% 0.083% Pantoprazol Pantoprazol No 1{table QD Pantoprazo e Sodium 40 e Sodium 40 t} le Sodium MG MG 40 MG BD Pen BD Pen No QD BD Pen Needle Janet Needle Janet Needle 2nd Gen 32G 2nd Gen 32G Janet 2nd X 4 MM X 4 MM Gen 32G X 4 MM Levothyroxi Levothyroxi No QD Levothyrox ne Sodium ne Sodium ine Sodium 75 MCG 75 MCG 75 MCG busPIRone busPIRone No 1{table BID busPIRone HCl 15 MG HCl 15 MG t} HCl 15 MG Aspir-Low Aspir-Low No 1{table QD Aspir-Low 81 MG 81 MG t} 81 MG Myrbetriq Myrbetriq No 1{table QD Myrbetriq 25 MG 25 MG t} 25 MG Multivitami Multivitami No Multivitam n Adult n Adult in Adult CHANTIX CHANTIX No CHANTIX Lantus Lantus No QD Lantus SoloStar SoloStar SoloStar 100 UNIT/ML 100 UNIT/ML 100 UNIT/ML Levothyroxi Levothyroxi No QD Levothyrox ne Sodium ne Sodium ine Sodium 75 MCG 75 MCG 75 MCG Fluticasone Fluticasone No Fluticason Propionate Propionate e 50 MCG/ACT 50 MCG/ACT Propionate 50 MCG/ACT Albuterol Albuterol No 3{ml_as TID Albuterol Sulfate Sulfate _needed Sulfate (2.5 (2.5 } (2.5 MG/3ML) MG/3ML) MG/3ML) 0.083% 0.083% 0.083% Myrbetriq Myrbetriq No 1{table QD Myrbetriq 25 MG 25 MG t} 25 MG Cetirizine Cetirizine No 1{table QD Cetirizine HCl 10 MG HCl 10 MG t} HCl 10 MG Levothyroxi Levothyroxi No QD Levothyrox ne Sodium ne Sodium ine Sodium 75 MCG 75 MCG 75 MCG Accu-Chek Accu-Chek No BID Accu-Chek Sarika Plus Sarika Plus Sarika Plus - - - Levothyroxi Levothyroxi No QD Levothyrox ne Sodium ne Sodium ine Sodium 75 MCG 75 MCG 75 MCG Accu-Chek Accu-Chek No BID Accu-Chek Softclix Softclix Softclix Lancets - Lancets - Lancets - Fluticasone Fluticasone No Fluticason Propionate Propionate e 50 MCG/ACT 50 MCG/ACT Propionate 50 MCG/ACT Benzonatate Benzonatate No 1{capsu TID Benzonatat 100 MG 100 MG le_as_n e 100 MG eeded} Aspir-Low Aspir-Low No 1{table QD Aspir-Low 81 MG 81 MG t} 81 MG Janumet Janumet No 1{table BID Janumet 50-1000 MG 50-1000 MG t_with_ 50-1000 MG meals} Multivitami Multivitami No Multivitam n Adult n Adult in Adult Trintellix Trintellix No Trintellix 20 MG 20 MG 20 MG Pantoprazol Pantoprazol No 1{table QD Pantoprazo e Sodium 40 e Sodium 40 t} le Sodium MG MG 40 MG Ursodiol Ursodiol No Ursodiol 250 MG 250 MG 250 MG busPIRone busPIRone No 1{table BID busPIRone HCl 15 MG HCl 15 MG t} HCl 15 MG Janumet Janumet No 1{table BID Janumet 50-1000 MG 50-1000 MG t_with_ 50-1000 MG meals} Gabapentin Gabapentin No 1{capsu BID Gabapentin 300 MG 300 MG le} 300 MG Lantus Lantus No Lantus SoloStar SoloStar SoloStar 100 UNIT/ML 100 UNIT/ML 100 UNIT/ML CHANTIX CHANTIX No CHANTIX BD Pen BD Pen No QD BD Pen Needle Janet Needle Janet Needle 2nd Gen 32G 2nd Gen 32G Janet 2nd X 4 MM X 4 MM Gen 32G X 4 MM Albuterol Albuterol No 3{ml_as TID Albuterol Sulfate Sulfate _needed Sulfate (2.5 (2.5 } (2.5 MG/3ML) MG/3ML) MG/3ML) 0.083% 0.083% 0.083% Myrbetriq Myrbetriq No 1{table QD Myrbetriq 25 MG 25 MG t} 25 MG Cetirizine Cetirizine No 1{table QD Cetirizine HCl 10 MG HCl 10 MG t} HCl 10 MG Levothyroxi Levothyroxi No QD Levothyrox ne Sodium ne Sodium ine Sodium 75 MCG 75 MCG 75 MCG Accu-Chek Accu-Chek No BID Accu-Chek Sarika Plus Sarika Plus Sarika Plus - - - Levothyroxi Levothyroxi No QD Levothyrox ne Sodium ne Sodium ine Sodium 75 MCG 75 MCG 75 MCG Accu-Chek Accu-Chek No BID Accu-Chek Softclix Softclix Softclix Lancets - Lancets - Lancets - Fluticasone Fluticasone No Fluticason Propionate Propionate e 50 MCG/ACT 50 MCG/ACT Propionate 50 MCG/ACT Benzonatate Benzonatate No 1{capsu TID Benzonatat 100 MG 100 MG le_as_n e 100 MG eeded} Aspir-Low Aspir-Low No 1{table QD Aspir-Low 81 MG 81 MG t} 81 MG Janumet Janumet No 1{table BID Janumet 50-1000 MG 50-1000 MG t_with_ 50-1000 MG meals} Multivitami Multivitami No Multivitam n Adult n Adult in Adult Trintellix Trintellix No Trintellix 20 MG 20 MG 20 MG Pantoprazol Pantoprazol No 1{table QD Pantoprazo e Sodium 40 e Sodium 40 t} le Sodium MG MG 40 MG Ursodiol Ursodiol No Ursodiol 250 MG 250 MG 250 MG busPIRone busPIRone No 1{table BID busPIRone HCl 15 MG HCl 15 MG t} HCl 15 MG Janumet Janumet No 1{table BID Janumet 50-1000 MG 50-1000 MG t_with_ 50-1000 MG meals} Gabapentin Gabapentin No 1{capsu BID Gabapentin 300 MG 300 MG le} 300 MG Lantus Lantus No Lantus SoloStar SoloStar SoloStar 100 UNIT/ML 100 UNIT/ML 100 UNIT/ML CHANTIX CHANTIX No CHANTIX BD Pen BD Pen No QD BD Pen Needle Janet Needle Janet Needle 2nd Gen 32G 2nd Gen 32G Janet 2nd X 4 MM X 4 MM Gen 32G X 4 MM Aspir-Low Aspir-Low No 1{table QD Aspir-Low 81 MG 81 MG t} 81 MG Gabapentin Gabapentin No 1{capsu BID Gabapentin 300 MG 300 MG le} 300 MG Levothyroxi Levothyroxi No Levothyrox ne Sodium ne Sodium ine Sodium 75 MCG 75 MCG 75 MCG Accu-Chek Accu-Chek No BID Accu-Chek Softclix Softclix Softclix Lancets - Lancets - Lancets - Benzonatate Benzonatate No 1{capsu TID Benzonatat 100 MG 100 MG le_as_n e 100 MG eeded} Myrbetriq Myrbetriq No 1{table QD Myrbetriq 25 MG 25 MG t} 25 MG CHANTIX CHANTIX No CHANTIX Trintellix Trintellix No Trintellix 20 MG 20 MG 20 MG Lantus Lantus No Lantus SoloStar SoloStar SoloStar 100 UNIT/ML 100 UNIT/ML 100 UNIT/ML Pantoprazol Pantoprazol No 1{table QD Pantoprazo e Sodium 40 e Sodium 40 t} le Sodium MG MG 40 MG BD Pen BD Pen No QD BD Pen Needle Janet Needle Janet Needle 2nd Gen 32G 2nd Gen 32G Janet 2nd X 4 MM X 4 MM Gen 32G X 4 MM Ursodiol Ursodiol No Ursodiol 250 MG 250 MG 250 MG Cetirizine Cetirizine No 1{table QD Cetirizine HCl 10 MG HCl 10 MG t} HCl 10 MG Multivitami Multivitami No Multivitam n Adult n Adult in Adult Accu-Chek Accu-Chek No BID Accu-Chek Sarika Plus Sarika Plus Sarika Plus - - - Albuterol Albuterol No 3{ml_as TID Albuterol Sulfate Sulfate _needed Sulfate (2.5 (2.5 } (2.5 MG/3ML) MG/3ML) MG/3ML) 0.083% 0.083% 0.083% Fluticasone Fluticasone No Fluticason Propionate Propionate e 50 MCG/ACT 50 MCG/ACT Propionate 50 MCG/ACT Janumet Janumet No 1{table BID Janumet 50-1000 MG 50-1000 MG t_with_ 50-1000 MG meals} busPIRone busPIRone No 1{table BID busPIRone HCl 15 MG HCl 15 MG t} HCl 15 MG Janumet Janumet No 1{table BID Janumet 50-1000 MG 50-1000 MG t_with_ 50-1000 MG meals} Multivitami Multivitami No Multivitam n Adult n Adult in Adult Myrbetriq Myrbetriq No 1{table QD Myrbetriq 25 MG 25 MG t} 25 MG Fluticasone Fluticasone No Fluticason Propionate Propionate e 50 MCG/ACT 50 MCG/ACT Propionate 50 MCG/ACT CHANTIX CHANTIX No CHANTIX BD Pen BD Pen No QD BD Pen Needle Janet Needle Janet Needle 2nd Gen 32G 2nd Gen 32G Janet 2nd X 4 MM X 4 MM Gen 32G X 4 MM Aspir-Low Aspir-Low No 1{table QD Aspir-Low 81 MG 81 MG t} 81 MG Trintellix Trintellix No Trintellix 20 MG 20 MG 20 MG Accu-Chek Accu-Chek No BID Accu-Chek Sarika Plus Sarika Plus Sarika Plus - - - Janumet Janumet No Janumet 50-1000 MG 50-1000 MG 50-1000 MG Varenicline Varenicline No QD Vareniclin Tartrate 1 Tartrate 1 e Tartrate MG MG 1 MG Benzonatate Benzonatate No 1{capsu TID Benzonatat 100 MG 100 MG le_as_n e 100 MG eeded} Levothyroxi Levothyroxi No Levothyrox ne Sodium ne Sodium ine Sodium 75 MCG 75 MCG 75 MCG Ursodiol Ursodiol No Ursodiol 250 MG 250 MG 250 MG Albuterol Albuterol No 3{ml_as TID Albuterol Sulfate Sulfate _needed Sulfate (2.5 (2.5 } (2.5 MG/3ML) MG/3ML) MG/3ML) 0.083% 0.083% 0.083% Lantus Lantus No Lantus SoloStar SoloStar SoloStar 100 UNIT/ML 100 UNIT/ML 100 UNIT/ML Gabapentin Gabapentin No Gabapentin 300 MG 300 MG 300 MG busPIRone busPIRone No busPIRone HCl 15 MG HCl 15 MG HCl 15 MG Accu-Chek Accu-Chek No Accu-Chek Softclix Softclix Softclix Lancets - Lancets - Lancets - Pantoprazol Pantoprazol No 1{table QD Pantoprazo e Sodium 40 e Sodium 40 t} le Sodium MG MG 40 MG Cetirizine Cetirizine No 1{table QD Cetirizine HCl 10 MG HCl 10 MG t} HCl 10 MG Pravastatin Pravastatin No Pravastati Sodium 20 Sodium 20 n Sodium MG MG 20 MG Multivitami Multivitami No Multivitam n Adult n Adult in Adult Myrbetriq Myrbetriq No 1{table QD Myrbetriq 25 MG 25 MG t} 25 MG Fluticasone Fluticasone No Fluticason Propionate Propionate e 50 MCG/ACT 50 MCG/ACT Propionate 50 MCG/ACT CHANTIX CHANTIX No CHANTIX BD Pen BD Pen No QD BD Pen Needle Janet Needle Janet Needle 2nd Gen 32G 2nd Gen 32G Janet 2nd X 4 MM X 4 MM Gen 32G X 4 MM Aspir-Low Aspir-Low No 1{table QD Aspir-Low 81 MG 81 MG t} 81 MG Trintellix Trintellix No Trintellix 20 MG 20 MG 20 MG Accu-Chek Accu-Chek No BID Accu-Chek Sarika Plus Sarika Plus Sarika Plus - - - Janumet Janumet No Janumet 50-1000 MG 50-1000 MG 50-1000 MG Varenicline Varenicline No QD Vareniclin Tartrate 1 Tartrate 1 e Tartrate MG MG 1 MG Benzonatate Benzonatate No 1{capsu TID Benzonatat 100 MG 100 MG le_as_n e 100 MG eeded} Levothyroxi Levothyroxi No Levothyrox ne Sodium ne Sodium ine Sodium 75 MCG 75 MCG 75 MCG Ursodiol Ursodiol No Ursodiol 250 MG 250 MG 250 MG Albuterol Albuterol No 3{ml_as TID Albuterol Sulfate Sulfate _needed Sulfate (2.5 (2.5 } (2.5 MG/3ML) MG/3ML) MG/3ML) 0.083% 0.083% 0.083% Lantus Lantus No Lantus SoloStar SoloStar SoloStar 100 UNIT/ML 100 UNIT/ML 100 UNIT/ML Gabapentin Gabapentin No Gabapentin 300 MG 300 MG 300 MG busPIRone busPIRone No busPIRone HCl 15 MG HCl 15 MG HCl 15 MG Accu-Chek Accu-Chek No Accu-Chek Softclix Softclix Softclix Lancets - Lancets - Lancets - Pantoprazol Pantoprazol No 1{table QD Pantoprazo e Sodium 40 e Sodium 40 t} le Sodium MG MG 40 MG Cetirizine Cetirizine No 1{table QD Cetirizine HCl 10 MG HCl 10 MG t} HCl 10 MG Pravastatin Pravastatin No Pravastati Sodium 20 Sodium 20 n Sodium MG MG 20 MG busPIRone busPIRone No busPIRone HCl 15 MG HCl 15 MG HCl 15 MG Accu-Chek Accu-Chek No Accu-Chek Softclix Softclix Softclix Lancets - Lancets - Lancets - Benzonatate Benzonatate No 1{capsu TID Benzonatat 100 MG 100 MG le_as_n e 100 MG eeded} Myrbetriq Myrbetriq No 1{table QD Myrbetriq 25 MG 25 MG t} 25 MG Ursodiol Ursodiol No Ursodiol 250 MG 250 MG 250 MG Aspir-Low Aspir-Low No 1{table QD Aspir-Low 81 MG 81 MG t} 81 MG Fluticasone Fluticasone No Fluticason Propionate Propionate e 50 MCG/ACT 50 MCG/ACT Propionate 50 MCG/ACT Trintellix Trintellix No Trintellix 20 MG 20 MG 20 MG Levothyroxi Levothyroxi No Levothyrox ne Sodium ne Sodium ine Sodium 75 MCG 75 MCG 75 MCG Cetirizine Cetirizine No 1{table QD Cetirizine HCl 10 MG HCl 10 MG t} HCl 10 MG Albuterol Albuterol No 3{ml_as TID Albuterol Sulfate Sulfate _needed Sulfate (2.5 (2.5 } (2.5 MG/3ML) MG/3ML) MG/3ML) 0.083% 0.083% 0.083% Multivitami Multivitami No Multivitam n Adult n Adult in Adult Pantoprazol Pantoprazol No 1{table QD Pantoprazo e Sodium 40 e Sodium 40 t} le Sodium MG MG 40 MG Accu-Chek Accu-Chek No BID Accu-Chek Sarika Plus Sarika Plus Sarika Plus - - - CHANTIX CHANTIX No CHANTIX Gabapentin Gabapentin No Gabapentin 300 MG 300 MG 300 MG Lantus Lantus No Lantus SoloStar SoloStar SoloStar 100 UNIT/ML 100 UNIT/ML 100 UNIT/ML Janumet Janumet No Janumet 50-1000 MG 50-1000 MG 50-1000 MG Pravastatin Pravastatin No Pravastati Sodium 20 Sodium 20 n Sodium MG MG 20 MG BD Pen BD Pen No QD BD Pen Needle Janet Needle Janet Needle 2nd Gen 32G 2nd Gen 32G Janet 2nd X 4 MM X 4 MM Gen 32G X 4 MM Varenicline Varenicline No QD Vareniclin Tartrate 1 Tartrate 1 e Tartrate MG MG 1 MG Benzonatate Benzonatate No 1{capsu TID Benzonatat 100 MG 100 MG le_as_n e 100 MG eeded} Accu-Chek Accu-Chek No Accu-Chek Softclix Softclix Softclix Lancets - Lancets - Lancets - Varenicline Varenicline No QD Vareniclin Tartrate 1 Tartrate 1 e Tartrate MG MG 1 MG Myrbetriq Myrbetriq No 1{table QD Myrbetriq 25 MG 25 MG t} 25 MG Ursodiol Ursodiol No Ursodiol 250 MG 250 MG 250 MG CHANTIX CHANTIX No CHANTIX Aspir-Low Aspir-Low No 1{table QD Aspir-Low 81 MG 81 MG t} 81 MG Fluticasone Fluticasone No Fluticason Propionate Propionate e 50 MCG/ACT 50 MCG/ACT Propionate 50 MCG/ACT Trintellix Trintellix No Trintellix 20 MG 20 MG 20 MG Levothyroxi Levothyroxi No Levothyrox ne Sodium ne Sodium ine Sodium 75 MCG 75 MCG 75 MCG Albuterol Albuterol No 3{ml_as TID Albuterol Sulfate Sulfate _needed Sulfate (2.5 (2.5 } (2.5 MG/3ML) MG/3ML) MG/3ML) 0.083% 0.083% 0.083% Multivitami Multivitami No Multivitam n Adult n Adult in Adult Gabapentin Gabapentin No Gabapentin 300 MG 300 MG 300 MG Accu-Chek Accu-Chek No BID Accu-Chek Sarika Plus Sarika Plus Sarika Plus - - - busPIRone busPIRone No busPIRone HCl 15 MG HCl 15 MG HCl 15 MG Cetirizine Cetirizine No 1{table QD Cetirizine HCl 10 MG HCl 10 MG t} HCl 10 MG Lantus Lantus No Lantus SoloStar SoloStar SoloStar 100 UNIT/ML 100 UNIT/ML 100 UNIT/ML Janumet Janumet No Janumet 50-1000 MG 50-1000 MG 50-1000 MG Pravastatin Pravastatin No Pravastati Sodium 20 Sodium 20 n Sodium MG MG 20 MG BD Pen BD Pen No QD BD Pen Needle Janet Needle Janet Needle 2nd Gen 32G 2nd Gen 32G Janet 2nd X 4 MM X 4 MM Gen 32G X 4 MM Pantoprazol Pantoprazol No 1{table QD Pantoprazo e Sodium 40 e Sodium 40 t} le Sodium MG MG 40 MG Levothyroxi Levothyroxi No Levothyrox ne Sodium ne Sodium ine Sodium 75 MCG 75 MCG 75 MCG Aspir-Low Aspir-Low No 1{table QD Aspir-Low 81 MG 81 MG t} 81 MG busPIRone busPIRone No busPIRone HCl 15 MG HCl 15 MG HCl 15 MG Cetirizine Cetirizine No 1{table QD Cetirizine HCl 10 MG HCl 10 MG t} HCl 10 MG Benzonatate Benzonatate No 1{capsu TID Benzonatat 100 MG 100 MG le_as_n e 100 MG eeded} Fluticasone Fluticasone No Fluticason Propionate Propionate e 50 MCG/ACT 50 MCG/ACT Propionate 50 MCG/ACT Varenicline Varenicline No QD Vareniclin Tartrate 1 Tartrate 1 e Tartrate MG MG 1 MG Janumet Janumet No Janumet 50-1000 MG 50-1000 MG 50-1000 MG CHANTIX CHANTIX No CHANTIX Accu-Chek Accu-Chek No BID Accu-Chek Sarika Plus Sarika Plus Sarika Plus - - - Trintellix Trintellix No Trintellix 20 MG 20 MG 20 MG Gabapentin Gabapentin No Gabapentin 300 MG 300 MG 300 MG Myrbetriq Myrbetriq No 1{table QD Myrbetriq 25 MG 25 MG t} 25 MG Pantoprazol Pantoprazol No 1{table QD Pantoprazo e Sodium 40 e Sodium 40 t} le Sodium MG MG 40 MG Lantus Lantus No Lantus SoloStar SoloStar SoloStar 100 UNIT/ML 100 UNIT/ML 100 UNIT/ML Multivitami Multivitami No Multivitam n Adult n Adult in Adult Accu-Chek Accu-Chek No Accu-Chek Softclix Softclix Softclix Lancets - Lancets - Lancets - Pravastatin Pravastatin No Pravastati Sodium 20 Sodium 20 n Sodium MG MG 20 MG BD Pen BD Pen No QD BD Pen Needle Janet Needle Janet Needle 2nd Gen 32G 2nd Gen 32G Janet 2nd X 4 MM X 4 MM Gen 32G X 4 MM Albuterol Albuterol No 3{ml_as TID Albuterol Sulfate Sulfate _needed Sulfate (2.5 (2.5 } (2.5 MG/3ML) MG/3ML) MG/3ML) 0.083% 0.083% 0.083% Ursodiol Ursodiol No Ursodiol 250 MG 250 MG 250 MG Ursodiol Ursodiol No Ursodiol 250 MG 250 MG 250 MG Levothyroxi Levothyroxi No Levothyrox ne Sodium ne Sodium ine Sodium 75 MCG 75 MCG 75 MCG busPIRone busPIRone No busPIRone HCl 15 MG HCl 15 MG HCl 15 MG Varenicline Varenicline No Vareniclin Tartrate 1 Tartrate 1 e Tartrate MG MG 1 MG Aspir-Low Aspir-Low No 1{table QD Aspir-Low 81 MG 81 MG t} 81 MG Myrbetriq Myrbetriq No 1{table QD Myrbetriq 25 MG 25 MG t} 25 MG Albuterol Albuterol No 3{ml_as TID Albuterol Sulfate Sulfate _needed Sulfate (2.5 (2.5 } (2.5 MG/3ML) MG/3ML) MG/3ML) 0.083% 0.083% 0.083% Trintellix Trintellix No Trintellix 20 MG 20 MG 20 MG Cetirizine Cetirizine No 1{table QD Cetirizine HCl 10 MG HCl 10 MG t} HCl 10 MG Multivitami Multivitami No Multivitam n Adult n Adult in Adult Fluticasone Fluticasone No Fluticason Propionate Propionate e 50 MCG/ACT 50 MCG/ACT Propionate 50 MCG/ACT Accu-Chek Accu-Chek No BID Accu-Chek Sarika Plus Sarika Plus Sarika Plus - - - Accu-Chek Accu-Chek No Accu-Chek Softclix Softclix Softclix Lancets - Lancets - Lancets - Gabapentin Gabapentin No Gabapentin 300 MG 300 MG 300 MG BD Pen BD Pen No QD BD Pen Needle Janet Needle Janet Needle 2nd Gen 32G 2nd Gen 32G Janet 2nd X 4 MM X 4 MM Gen 32G X 4 MM Lantus Lantus No Lantus SoloStar SoloStar SoloStar 100 UNIT/ML 100 UNIT/ML 100 UNIT/ML Pantoprazol Pantoprazol No 1{table QD Pantoprazo e Sodium 40 e Sodium 40 t} le Sodium MG MG 40 MG Pravastatin Pravastatin No Pravastati Sodium 20 Sodium 20 n Sodium MG MG 20 MG Benzonatate Benzonatate No 1{capsu TID Benzonatat 100 MG 100 MG le_as_n e 100 MG eeded} No Janumet 50-1000 MG 50-1000 MG 50-1000 MG Ursodiol Ursodiol No Ursodiol 250 MG 250 MG 250 MG Levothyroxi Levothyroxi No Levothyrox ne Sodium ne Sodium ine Sodium 75 MCG 75 MCG 75 MCG busPIRone busPIRone No busPIRone HCl 15 MG HCl 15 MG HCl 15 MG Varenicline Varenicline No Vareniclin Tartrate 1 Tartrate 1 e Tartrate MG MG 1 MG Aspir-Low Aspir-Low No 1{table QD Aspir-Low 81 MG 81 MG t} 81 MG Myrbetriq Myrbetriq No 1{table QD Myrbetriq 25 MG 25 MG t} 25 MG Albuterol Albuterol No 3{ml_as TID Albuterol Sulfate Sulfate _needed Sulfate (2.5 (2.5 } (2.5 MG/3ML) MG/3ML) MG/3ML) 0.083% 0.083% 0.083% Celecoxib Celecoxib Yes Na Ruelas 1 capsule Common with food [facility] Pantoprazol Pantoprazol Yes Na Ruelas TAKE 1 Common e Sodium e Sodium TABLET BY Sp valorie MOUTH - [facility] [place] [facility] [place] Albuterol Albuterol Yes Na Ruelas 3 ml as Common Sulfate Sulfate needed [facility] Levothyroxi Levothyroxi Yes Na Ruelas TAKE 1 Common ne Sodium ne Sodium TABLET BY [facility] M[facility] - [facility] EVERY DAY [facility] IN THE MORNING ON Medical AN EMPTY Center STOMACH Janumet Janumet Yes Na Ruelas 1 tablet Co mmon with meals [facility] BusPIRone BusPIRone Yes Na Ruelas 1 tablet Common HCl HCl [facility] Ursodiol Ursodiol Yes Na Ruelas as Comm on directed [facility] Gabapentin Gabapentin Yes Na Ruelas 1 capsule Common [facility] Aspir-Low Aspir-Low Yes Na Ruelas 1 tablet Common [facility] Oxybutynin Oxybutynin Yes Na Ruelas 1 tablet Common Chloride Chloride [facility] Trintellix Trintellix Yes Na Ruelas 1 tablet Common [facility] Trintellix Trintellix No Trintellix 20 MG 20 MG 20 MG Cetirizine Cetirizine No 1{table QD Cetirizine HCl 10 MG HCl 10 MG t} HCl 10 MG Multivitami Multivitami No Multivitam n Adult n Adult in Adult Fluticasone Fluticasone No Fluticason Propionate Propionate e 50 MCG/ACT 50 MCG/ACT Propionate 50 MCG/ACT Accu-Chek Accu-Chek No BID Accu-Chek Sarika Plus Sarika Plus Sarika Plus - - - Accu-Chek Accu-Chek No Accu-Chek Softclix Softclix Softclix Lancets - Lancets - Lancets - Gabapentin Gabapentin No Gabapentin 300 MG 300 MG 300 MG BD Pen BD Pen No QD BD Pen Needle Janet Needle Janet Needle 2nd Gen 32G 2nd Gen 32G Janet 2nd X 4 MM X 4 MM Gen 32G X 4 MM Lantus Lantus No Lantus SoloStar SoloStar SoloStar 100 UNIT/ML 100 UNIT/ML 100 UNIT/ML Pantoprazol Pantoprazol No 1{table QD Pantoprazo e Sodium 40 e Sodium 40 t} le Sodium MG MG 40 MG Pravastatin Pravastatin No Pravastati Sodium 20 Sodium 20 n Sodium MG MG 20 MG Benzonatate Benzonatate No 1{capsu TID Benzonatat 100 MG 100 MG le_as_n e 100 MG eeded} Janumet Janumet No Janumet 50-1000 MG 50-1000 MG 50-1000 MG Ursodiol Ursodiol No Ursodiol 250 MG 250 MG 250 MG Levothyroxi Levothyroxi No Levothyrox ne Sodium ne Sodium ine Sodium 75 MCG 75 MCG 75 MCG busPIRone busPIRone No busPIRone HCl 15 MG HCl 15 MG HCl 15 MG Varenicline Varenicline No Vareniclin Tartrate 1 Tartrate 1 e Tartrate MG MG 1 MG Aspir-Low Aspir-Low No 1{table QD Aspir-Low 81 MG 81 MG t} 81 MG Myrbetriq Myrbetriq No 1{table QD Myrbetriq 25 MG 25 MG t} 25 MG Albuterol Albuterol No 3{ml_as TID Albuterol Sulfate Sulfate _needed Sulfate (2.5 (2.5 } (2.5 MG/3ML) MG/3ML) MG/3ML) 0.083% 0.083% 0.083% Trintellix Trintellix No Trintellix 20 MG 20 MG 20 MG Cetirizine Cetirizine No 1{table QD Cetirizine HCl 10 MG HCl 10 MG t} HCl 10 MG Multivitami Multivitami No Multivitam n Adult n Adult in Adult Fluticasone Fluticasone No Fluticason Propionate Propionate e 50 MCG/ACT 50 MCG/ACT Propionate 50 MCG/ACT Accu-Chek Accu-Chek No BID Accu-Chek Sarika Plus Sarika Plus Sarika Plus - - - Accu-Chek Accu-Chek No Accu-Chek Softclix Softclix Softclix Lancets - Lancets - Lancets - Gabapentin Gabapentin No Gabapentin 300 MG 300 MG 300 MG BD Pen BD Pen No QD BD Pen Needle Janet Needle Janet Needle 2nd Gen 32G 2nd Gen 32G Janet 2nd X 4 MM X 4 MM Gen 32G X 4 MM Lantus Lantus No Lantus SoloStar SoloStar SoloStar 100 UNIT/ML 100 UNIT/ML 100 UNIT/ML Pantoprazol Pantoprazol No 1{table QD Pantoprazo e Sodium 40 e Sodium 40 t} le Sodium MG MG 40 MG Pravastatin Pravastatin No Pravastati Sodium 20 Sodium 20 n Sodium MG MG 20 MG Benzonatate Benzonatate No 1{capsu TID Benzonatat 100 MG 100 MG le_as_n e 100 MG eeded} Janumet Janumet No Janumet 50-1000 MG 50-1000 MG 50-1000 MG Accu-Chek Accu-Chek No Accu-Chek Softclix Softclix Softclix Lancets - Lancets - Lancets - Gabapentin Gabapentin No Gabapentin 300 MG 300 MG 300 MG Benzonatate Benzonatate No 1{capsu TID Benzonatat 100 MG 100 MG le_as_n e 100 MG eeded} Losartan Losartan No 1{table QD Losartan Potassium Potassium t} Potassium 100 MG 100 MG 100 MG Multivitami Multivitami No Multivitam n Adult n Adult in Adult Pantoprazol Pantoprazol No 1{table QD Pantoprazo e Sodium 40 e Sodium 40 t} le Sodium MG MG 40 MG Janumet Janumet No Janumet 50-1000 MG 50-1000 MG 50-1000 MG metFORMIN metFORMIN No 1{table BID metFORMIN HCl ER 750 HCl ER 750 t} HCl ER 750 MG MG MG Ursodiol Ursodiol No Ursodiol 250 MG 250 MG 250 MG Myrbetriq Myrbetriq No 1{table QD Myrbetriq 25 MG 25 MG t} 25 MG Trintellix Trintellix No Trintellix 20 MG 20 MG 20 MG Varenicline Varenicline No Vareniclin Tartrate 1 Tartrate 1 e Tartrate MG MG 1 MG Accu-Chek Accu-Chek No BID Accu-Chek Sarika Plus Sarika Plus Sarika Plus - - - Trulicity Trulicity No Trulicity 0.75mg/0.5m 0.75mg/0.5m 0.75mg/0.5 l l ml Lantus Lantus No Lantus SoloStar SoloStar SoloStar 100 UNIT/ML 100 UNIT/ML 100 UNIT/ML Levothyroxi Levothyroxi No Levothyrox ne Sodium ne Sodium ine Sodium 75 MCG 75 MCG 75 MCG Toujeo Toujeo No Toujeo SoloStar SoloStar SoloStar 300 UNIT/ML 300 UNIT/ML 300 UNIT/ML Jardiance Jardiance No 1{table QD Jardiance 25 MG 25 MG t} 25 MG Cetirizine Cetirizine No 1{table QD Cetirizine HCl 10 MG HCl 10 MG t} HCl 10 MG Pravastatin Pravastatin No Pravastati Sodium 20 Sodium 20 n Sodium MG MG 20 MG Aspir-Low Aspir-Low No 1{table QD Aspir-Low 81 MG 81 MG t} 81 MG Albuterol Albuterol No 3{ml_as TID Albuterol Sulfate Sulfate _needed Sulfate (2.5 (2.5 } (2.5 MG/3ML) MG/3ML) MG/3ML) 0.083% 0.083% 0.083% busPIRone busPIRone No busPIRone HCl 15 MG HCl 15 MG HCl 15 MG BD Pen BD Pen No QD BD Pen Needle Janet Needle Janet Needle 2nd Gen 32G 2nd Gen 32G Janet 2nd X 4 MM X 4 MM Gen 32G X 4 MM Fluticasone Fluticasone No Fluticason Propionate Propionate e 50 MCG/ACT 50 MCG/ACT Propionate 50 MCG/ACT Accu-Chek Accu-Chek No Accu-Chek Softclix Softclix Softclix Lancets - Lancets - Lancets - Gabapentin Gabapentin No Gabapentin 300 MG 300 MG 300 MG Benzonatate Benzonatate No 1{capsu TID Benzonatat 100 MG 100 MG le_as_n e 100 MG eeded} Losartan Losartan No 1{table QD Losartan Potassium Potassium t} Potassium 100 MG 100 MG 100 MG Multivitami Multivitami No Multivitam n Adult n Adult in Adult Pantoprazol Pantoprazol No 1{table QD Pantoprazo e Sodium 40 e Sodium 40 t} le Sodium MG MG 40 MG Janumet Janumet No Janumet 50-1000 MG 50-1000 MG 50-1000 MG metFORMIN metFORMIN No 1{table BID metFORMIN HCl ER 750 HCl ER 750 t} HCl ER 750 MG MG MG Ursodiol Ursodiol No Ursodiol 250 MG 250 MG 250 MG Myrbetriq Myrbetriq No 1{table QD Myrbetriq 25 MG 25 MG t} 25 MG Trintellix Trintellix No Trintellix 20 MG 20 MG 20 MG Varenicline Varenicline No Vareniclin Tartrate 1 Tartrate 1 e Tartrate MG MG 1 MG Accu-Chek Accu-Chek No BID Accu-Chek Sarika Plus Sarika Plus Sarika Plus - - - Trulicity Trulicity No Trulicity 0.75mg/0.5m 0.75mg/0.5m 0.75mg/0.5 l l ml Lantus Lantus No Lantus SoloStar SoloStar SoloStar 100 UNIT/ML 100 UNIT/ML 100 UNIT/ML Levothyroxi Levothyroxi No Levothyrox ne Sodium ne Sodium ine Sodium 75 MCG 75 MCG 75 MCG Toujeo Toujeo No Toujeo SoloStar SoloStar SoloStar 300 UNIT/ML 300 UNIT/ML 300 UNIT/ML Jardiance Jardiance No 1{table QD Jardiance 25 MG 25 MG t} 25 MG Cetirizine Cetirizine No 1{table QD Cetirizine HCl 10 MG HCl 10 MG t} HCl 10 MG Pravastatin Pravastatin No Pravastati Sodium 20 Sodium 20 n Sodium MG MG 20 MG Aspir-Low Aspir-Low No 1{table QD Aspir-Low 81 MG 81 MG t} 81 MG Albuterol Albuterol No 3{ml_as TID Albuterol Sulfate Sulfate _needed Sulfate (2.5 (2.5 } (2.5 MG/3ML) MG/3ML) MG/3ML) 0.083% 0.083% 0.083% busPIRone busPIRone No busPIRone HCl 15 MG HCl 15 MG HCl 15 MG BD Pen BD Pen No QD BD Pen Needle Janet Needle Janet Needle 2nd Gen 32G 2nd Gen 32G Janet 2nd X 4 MM X 4 MM Gen 32G X 4 MM Fluticasone Fluticasone No Fluticason Propionate Propionate e 50 MCG/ACT 50 MCG/ACT Propionate 50 MCG/ACT Accu-Chek Accu-Chek No Accu-Chek Softclix Softclix Softclix Lancets - Lancets - Lancets - Gabapentin Gabapentin No Gabapentin 300 MG 300 MG 300 MG Benzonatate Benzonatate No 1{capsu TID Benzonatat 100 MG 100 MG le_as_n e 100 MG eeded} Losartan Losartan No 1{table QD Losartan Potassium Potassium t} Potassium 100 MG 100 MG 100 MG Multivitami Multivitami No Multivitam n Adult n Adult in Adult Pantoprazol Pantoprazol No 1{table QD Pantoprazo e Sodium 40 e Sodium 40 t} le Sodium MG MG 40 MG Janumet Janumet No Janumet 50-1000 MG 50-1000 MG 50-1000 MG metFORMIN metFORMIN No 1{table BID metFORMIN HCl ER 750 HCl ER 750 t} HCl ER 750 MG MG MG Ursodiol Ursodiol No Ursodiol 250 MG 250 MG 250 MG Myrbetriq Myrbetriq No 1{table QD Myrbetriq 25 MG 25 MG t} 25 MG Trintellix Trintellix No Trintellix 20 MG 20 MG 20 MG Varenicline Varenicline No Vareniclin Tartrate 1 Tartrate 1 e Tartrate MG MG 1 MG Accu-Chek Accu-Chek No BID Accu-Chek Sarika Plus Sarika Plus Sarika Plus - - - Trulicity Trulicity No Trulicity 0.75mg/0.5m 0.75mg/0.5m 0.75mg/0.5 l l ml Lantus Lantus No Lantus SoloStar SoloStar SoloStar 100 UNIT/ML 100 UNIT/ML 100 UNIT/ML Levothyroxi Levothyroxi No Levothyrox ne Sodium ne Sodium ine Sodium 75 MCG 75 MCG 75 MCG Toujeo Toujeo No Toujeo SoloStar SoloStar SoloStar 300 UNIT/ML 300 UNIT/ML 300 UNIT/ML Jardiance Jardiance No 1{table QD Jardiance 25 MG 25 MG t} 25 MG Cetirizine Cetirizine No 1{table QD Cetirizine HCl 10 MG HCl 10 MG t} HCl 10 MG Pravastatin Pravastatin No Pravastati Sodium 20 Sodium 20 n Sodium MG MG 20 MG Aspir-Low Aspir-Low No 1{table QD Aspir-Low 81 MG 81 MG t} 81 MG Albuterol Albuterol No 3{ml_as TID Albuterol Sulfate Sulfate _needed Sulfate (2.5 (2.5 } (2.5 MG/3ML) MG/3ML) MG/3ML) 0.083% 0.083% 0.083% busPIRone busPIRone No busPIRone HCl 15 MG HCl 15 MG HCl 15 MG BD Pen BD Pen No QD BD Pen Needle Janet Needle Janet Needle 2nd Gen 32G 2nd Gen 32G Janet 2nd X 4 MM X 4 MM Gen 32G X 4 MM Fluticasone Fluticasone No Fluticason Propionate Propionate e 50 MCG/ACT 50 MCG/ACT Propionate 50 MCG/ACT Celecoxib Celecoxib No 1{capsu QD Celecoxib 200 MG 200 MG le_with 200 MG _food} Pantoprazol Pantoprazol No QD Pantoprazo e Sodium 40 e Sodium 40 le Sodium MG MG 40 MG Myrbetriq Myrbetriq No 1{table QD Myrbetriq 25 MG 25 MG t} 25 MG Janumet Janumet No 1{table BID Janumet 50-1000 MG 50-1000 MG t_with_ 50-1000 MG meals} Meloxicam Meloxicam No 1{table QD Meloxicam 15 MG 15 MG t} 15 MG Gabapentin Gabapentin No Gabapentin 300 MG 300 MG 300 MG Lantus Lantus No QD Lantus SoloStar SoloStar SoloStar 100 UNIT/ML 100 UNIT/ML 100 UNIT/ML Accu-Chek Accu-Chek No Accu-Chek Sarika Plus Sarika Plus Sarika Plus - - - Cetirizine Cetirizine No 1{table Cetirizine HCl 10 MG HCl 10 MG t} HCl 10 MG Aspir-Low Aspir-Low No 1{table QD Aspir-Low 81 MG 81 MG t} 81 MG Ursodiol Ursodiol No QD Ursodiol 300 MG 300 MG 300 MG Oxybutynin Oxybutynin No Oxybutynin Chloride 5 Chloride 5 Chloride 5 MG MG MG Trintellix Trintellix No 1{table QD Trintellix 20 MG 20 MG t} 20 MG Ursodiol Ursodiol No Ursodiol 250 MG 250 MG 250 MG Janumet Janumet No 1{table BID Janumet 50-1000 MG 50-1000 MG t_with_ 50-1000 MG meals} Accu-Chek Accu-Chek No Accu-Chek Softclix Softclix Softclix Lancets - Lancets - Lancets - Fluticasone Fluticasone No Fluticason Propionate Propionate e 50 MCG/ACT 50 MCG/ACT Propionate 50 MCG/ACT busPIRone busPIRone No busPIRone HCl 15 MG HCl 15 MG HCl 15 MG Gabapentin Gabapentin No 1{capsu BID Gabapentin 300 MG 300 MG le} 300 MG Trintellix Trintellix No 1{table QD Trintellix 20 MG 20 MG t} 20 MG Levothyroxi Levothyroxi No QD Levothyrox ne Sodium ne Sodium ine Sodium 75 MCG 75 MCG 75 MCG busPIRone busPIRone No 1{table BID busPIRone HCl 15 MG HCl 15 MG t} HCl 15 MG Albuterol Albuterol No 3{ml_as TID Albuterol Sulfate Sulfate _needed Sulfate (2.5 (2.5 } (2.5 MG/3ML) MG/3ML) MG/3ML) 0.083% 0.083% 0.083% BD Pen BD Pen No QD BD Pen Needle Janet Needle Janet Needle 2nd Gen 32G 2nd Gen 32G Janet 2nd X 4 MM X 4 MM Gen 32G X 4 MM Ursodiol Ursodiol No 1{table QD Ursodiol 250 MG 250 MG t_with_ 250 MG food} Aspir-Low Aspir-Low No 1{table QD Aspir-Low 81 MG 81 MG t} 81 MG Ursodiol Ursodiol No Ursodiol 250 MG 250 MG 250 MG Pantoprazol Pantoprazol No QD Pantoprazo e Sodium 40 e Sodium 40 le Sodium MG MG 40 MG busPIRone busPIRone No 1{table BID busPIRone HCl 15 MG HCl 15 MG t} HCl 15 MG Lantus Lantus No Lantus SoloStar SoloStar SoloStar 100 UNIT/ML 100 UNIT/ML 100 UNIT/ML Cetirizine Cetirizine No 1{table Cetirizine HCl 10 MG HCl 10 MG t} HCl 10 MG Albuterol Albuterol No 3{ml_as TID Albuterol Sulfate Sulfate _needed Sulfate (2.5 (2.5 } (2.5 MG/3ML) MG/3ML) MG/3ML) 0.083% 0.083% 0.083% Ursodiol Ursodiol No QD Ursodiol 300 MG 300 MG 300 MG busPIRone busPIRone No busPIRone HCl 15 MG HCl 15 MG HCl 15 MG Janumet Janumet No Janumet 50-1000 MG 50-1000 MG 50-1000 MG Levothyroxi Levothyroxi No QD Levothyrox ne Sodium ne Sodium ine Sodium 75 MCG 75 MCG 75 MCG Gabapentin Gabapentin No 1{capsu BID Gabapentin 300 MG 300 MG le} 300 MG Trintellix Trintellix No Trintellix 20 MG 20 MG 20 MG Oxybutynin Oxybutynin No 1{table QD Oxybutynin Chloride ER Chloride ER t} Chloride 10 MG 10 MG ER 10 MG Accu-Chek Accu-Chek No Accu-Chek Softclix Softclix Softclix Lancets - Lancets - Lancets - Lantus Lantus No QD Lantus SoloStar SoloStar SoloStar 100 UNIT/ML 100 UNIT/ML 100 UNIT/ML Trintellix Trintellix No 1{table QD Trintellix 20 MG 20 MG t} 20 MG Accu-Chek Accu-Chek No Accu-Chek Sarika Plus Sarika Plus Sarika Plus - - - Janumet Janumet No 1{table BID Janumet 50-1000 MG 50-1000 MG t_with_ 50-1000 MG meals} Gabapentin Gabapentin No Gabapentin 300 MG 300 MG 300 MG Myrbetriq Myrbetriq No 1{table QD Myrbetriq 25 MG 25 MG t} 25 MG BD Pen BD Pen No QD BD Pen Needle Janet Needle Janet Needle 2nd Gen 32G 2nd Gen 32G Janet 2nd X 4 MM X 4 MM Gen 32G X 4 MM Meloxicam Meloxicam No 1{table QD Meloxicam 15 MG 15 MG t} 15 MG Celecoxib Celecoxib No 1{capsu QD Celecoxib 200 MG 200 MG le_with 200 MG _food} Oxybutynin Oxybutynin No Oxybutynin Chloride 5 Chloride 5 Chloride 5 MG MG MG Fluticasone Fluticasone No Fluticason Propionate Propionate e 50 MCG/ACT 50 MCG/ACT Propionate 50 MCG/ACT Ursodiol Ursodiol No 1{table QD Ursodiol 250 MG 250 MG t_with_ 250 MG food} Aspir-Low Aspir-Low No 1{table QD Aspir-Low 81 MG 81 MG t} 81 MG Ursodiol Ursodiol No Ursodiol 250 MG 250 MG 250 MG Pantoprazol Pantoprazol No QD Pantoprazo e Sodium 40 e Sodium 40 le Sodium MG MG 40 MG busPIRone busPIRone No 1{table BID busPIRone HCl 15 MG HCl 15 MG t} HCl 15 MG Lantus Lantus No Lantus SoloStar SoloStar SoloStar 100 UNIT/ML 100 UNIT/ML 100 UNIT/ML Cetirizine Cetirizine No 1{table Cetirizine HCl 10 MG HCl 10 MG t} HCl 10 MG Albuterol Albuterol No 3{ml_as TID Albuterol Sulfate Sulfate _needed Sulfate (2.5 (2.5 } (2.5 MG/3ML) MG/3ML) MG/3ML) 0.083% 0.083% 0.083% Ursodiol Ursodiol No QD Ursodiol 300 MG 300 MG 300 MG busPIRone busPIRone No busPIRone HCl 15 MG HCl 15 MG HCl 15 MG Janumet Janumet No Janumet 50-1000 MG 50-1000 MG 50-1000 MG Levothyroxi Levothyroxi No QD Levothyrox ne Sodium ne Sodium ine Sodium 75 MCG 75 MCG 75 MCG Gabapentin Gabapentin No 1{capsu BID Gabapentin 300 MG 300 MG le} 300 MG Trintellix Trintellix No Trintellix 20 MG 20 MG 20 MG Oxybutynin Oxybutynin No 1{table QD Oxybutynin Chloride ER Chloride ER t} Chloride 10 MG 10 MG ER 10 MG Accu-Chek Accu-Chek No Accu-Chek Softclix Softclix Softclix Lancets - Lancets - Lancets - Lantus Lantus No QD Lantus SoloStar SoloStar SoloStar 100 UNIT/ML 100 UNIT/ML 100 UNIT/ML Trintellix Trintellix No 1{table QD Trintellix 20 MG 20 MG t} 20 MG Accu-Chek Accu-Chek No Accu-Chek Sarika Plus Sarika Plus Sarika Plus - - - Janumet Janumet No 1{table BID Janumet 50-1000 MG 50-1000 MG t_with_ 50-1000 MG meals} Gabapentin Gabapentin No Gabapentin 300 MG 300 MG 300 MG Myrbetriq Myrbetriq No 1{table QD Myrbetriq 25 MG 25 MG t} 25 MG BD Pen BD Pen No QD BD Pen Needle Janet Needle Janet Needle 2nd Gen 32G 2nd Gen 32G Janet 2nd X 4 MM X 4 MM Gen 32G X 4 MM Meloxicam Meloxicam No 1{table QD Meloxicam 15 MG 15 MG t} 15 MG Celecoxib Celecoxib No 1{capsu QD Celecoxib 200 MG 200 MG le_with 200 MG _food} Oxybutynin Oxybutynin No Oxybutynin Chloride 5 Chloride 5 Chloride 5 MG MG MG Fluticasone Fluticasone No Fluticason Propionate Propionate e 50 MCG/ACT 50 MCG/ACT Propionate 50 MCG/ACT Ursodiol Ursodiol No 1{table QD Ursodiol 250 MG 250 MG t_with_ 250 MG food} Aspir-Low Aspir-Low No 1{table QD Aspir-Low 81 MG 81 MG t} 81 MG Ursodiol Ursodiol No Ursodiol 250 MG 250 MG 250 MG Pantoprazol Pantoprazol No QD Pantoprazo e Sodium 40 e Sodium 40 le Sodium MG MG 40 MG busPIRone busPIRone No 1{table BID busPIRone HCl 15 MG HCl 15 MG t} HCl 15 MG Lantus Lantus No Lantus SoloStar SoloStar SoloStar 100 UNIT/ML 100 UNIT/ML 100 UNIT/ML Cetirizine Cetirizine No 1{table Cetirizine HCl 10 MG HCl 10 MG t} HCl 10 MG Albuterol Albuterol No 3{ml_as TID Albuterol Sulfate Sulfate _needed Sulfate (2.5 (2.5 } (2.5 MG/3ML) MG/3ML) MG/3ML) 0.083% 0.083% 0.083% Ursodiol Ursodiol No QD Ursodiol 300 MG 300 MG 300 MG busPIRone busPIRone No busPIRone HCl 15 MG HCl 15 MG HCl 15 MG Janumet Janumet No Janumet 50-1000 MG 50-1000 MG 50-1000 MG Levothyroxi Levothyroxi No QD Levothyrox ne Sodium ne Sodium ine Sodium 75 MCG 75 MCG 75 MCG Gabapentin Gabapentin No 1{capsu BID Gabapentin 300 MG 300 MG le} 300 MG Trintellix Trintellix No Trintellix 20 MG 20 MG 20 MG Oxybutynin Oxybutynin No 1{table QD Oxybutynin Chloride ER Chloride ER t} Chloride 10 MG 10 MG ER 10 MG Accu-Chek Accu-Chek No Accu-Chek Softclix Softclix Softclix Lancets - Lancets - Lancets - Lantus Lantus No QD Lantus SoloStar SoloStar SoloStar 100 UNIT/ML 100 UNIT/ML 100 UNIT/ML Trintellix Trintellix No 1{table QD Trintellix 20 MG 20 MG t} 20 MG Accu-Chek Accu-Chek No Accu-Chek Sarika Plus Sarika Plus Sarika Plus - - - Janumet Janumet No 1{table BID Janumet 50-1000 MG 50-1000 MG t_with_ 50-1000 MG meals} Gabapentin Gabapentin No Gabapentin 300 MG 300 MG 300 MG Myrbetriq Myrbetriq No 1{table QD Myrbetriq 25 MG 25 MG t} 25 MG BD Pen BD Pen No QD BD Pen Needle Janet Needle Janet Needle 2nd Gen 32G 2nd Gen 32G Janet 2nd X 4 MM X 4 MM Gen 32G X 4 MM Meloxicam Meloxicam No 1{table QD Meloxicam 15 MG 15 MG t} 15 MG Celecoxib Celecoxib No 1{capsu QD Celecoxib 200 MG 200 MG le_with 200 MG _food} Oxybutynin Oxybutynin No Oxybutynin Chloride 5 Chloride 5 Chloride 5 MG MG MG Fluticasone Fluticasone No Fluticason Propionate Propionate e 50 MCG/ACT 50 MCG/ACT Propionate 50 MCG/ACT Pantoprazol Pantoprazol No QD Pantoprazo e Sodium 40 e Sodium 40 le Sodium MG MG 40 MG BD Pen BD Pen No QD BD Pen Needle Janet Needle Janet Needle 2nd Gen 32G 2nd Gen 32G Janet 2nd X 4 MM X 4 MM Gen 32G X 4 MM Gabapentin Gabapentin No Gabapentin 300 MG 300 MG 300 MG Albuterol Albuterol No 3{ml_as TID Albuterol Sulfate Sulfate _needed Sulfate (2.5 (2.5 } (2.5 MG/3ML) MG/3ML) MG/3ML) 0.083% 0.083% 0.083% Ursodiol Ursodiol No QD Ursodiol 300 MG 300 MG 300 MG busPIRone busPIRone No busPIRone HCl 15 MG HCl 15 MG HCl 15 MG Ursodiol Ursodiol No 1{table QD Ursodiol 250 MG 250 MG t_with_ 250 MG food} Aspir-Low Aspir-Low No 1{table QD Aspir-Low 81 MG 81 MG t} 81 MG Ursodiol Ursodiol No Ursodiol 250 MG 250 MG 250 MG Gabapentin Gabapentin No 1{capsu BID Gabapentin 300 MG 300 MG le} 300 MG busPIRone busPIRone No 1{table BID busPIRone HCl 15 MG HCl 15 MG t} HCl 15 MG Lantus Lantus No Lantus SoloStar SoloStar SoloStar 100 UNIT/ML 100 UNIT/ML 100 UNIT/ML Cetirizine Cetirizine No 1{table Cetirizine HCl 10 MG HCl 10 MG t} HCl 10 MG Janumet Janumet No Janumet 50-1000 MG 50-1000 MG 50-1000 MG Accu-Chek Accu-Chek No Accu-Chek Softclix Softclix Softclix Lancets - Lancets - Lancets - Meloxicam Meloxicam No 1{table QD Meloxicam 15 MG 15 MG t} 15 MG Celecoxib Celecoxib No 1{capsu QD Celecoxib 200 MG 200 MG le_with 200 MG _food} Accu-Chek Accu-Chek No Accu-Chek Sarika Plus Sarika Plus Sarika Plus - - - Janumet Janumet No 1{table BID Janumet 50-1000 MG 50-1000 MG t_with_ 50-1000 MG meals} Myrbetriq Myrbetriq No 1{table QD Myrbetriq 25 MG 25 MG t} 25 MG Oxybutynin Oxybutynin No 1{table QD Oxybutynin Chloride ER Chloride ER t} Chloride 10 MG 10 MG ER 10 MG Levothyroxi Levothyroxi No QD Levothyrox ne Sodium ne Sodium ine Sodium 75 MCG 75 MCG 75 MCG Trintellix Trintellix No 1{table QD Trintellix 20 MG 20 MG t} 20 MG Trintellix Trintellix No Trintellix 20 MG 20 MG 20 MG Lantus Lantus No QD Lantus SoloStar SoloStar SoloStar 100 UNIT/ML 100 UNIT/ML 100 UNIT/ML Oxybutynin Oxybutynin No Oxybutynin Chloride 5 Chloride 5 Chloride 5 MG MG MG Fluticasone Fluticasone No Fluticason Propionate Propionate e 50 MCG/ACT 50 MCG/ACT Propionate 50 MCG/ACT Trintellix Trintellix No 1{table QD Trintellix 20 MG 20 MG t} 20 MG Cetirizine Cetirizine No 1{table Cetirizine HCl 10 MG HCl 10 MG t} HCl 10 MG Pantoprazol Pantoprazol No QD Pantoprazo e Sodium 40 e Sodium 40 le Sodium MG MG 40 MG Janumet Janumet No 1{table BID Janumet 50-1000 MG 50-1000 MG t_with_ 50-1000 MG meals} busPIRone busPIRone No busPIRone HCl 15 MG HCl 15 MG HCl 15 MG Myrbetriq Myrbetriq No 1{table QD Myrbetriq 25 MG 25 MG t} 25 MG Gabapentin Gabapentin No 1{capsu BID Gabapentin 300 MG 300 MG le} 300 MG Gabapentin Gabapentin No Gabapentin 300 MG 300 MG 300 MG Lantus Lantus No Lantus SoloStar SoloStar SoloStar 100 UNIT/ML 100 UNIT/ML 100 UNIT/ML Fluticasone Fluticasone No Fluticason Propionate Propionate e 50 MCG/ACT 50 MCG/ACT Propionate 50 MCG/ACT Accu-Chek Accu-Chek No Accu-Chek Softclix Softclix Softclix Lancets - Lancets - Lancets - Aspir-Low Aspir-Low No 1{table QD Aspir-Low 81 MG 81 MG t} 81 MG Janumet Janumet No Janumet 50-1000 MG 50-1000 MG 50-1000 MG Ursodiol Ursodiol No QD Ursodiol 300 MG 300 MG 300 MG Oxybutynin Oxybutynin No Oxybutynin Chloride 5 Chloride 5 Chloride 5 MG MG MG Celecoxib Celecoxib No 1{capsu QD Celecoxib 200 MG 200 MG le_with 200 MG _food} Ursodiol Ursodiol No 1{table QD Ursodiol 250 MG 250 MG t_with_ 250 MG food} Levothyroxi Levothyroxi No QD Levothyrox ne Sodium ne Sodium ine Sodium 75 MCG 75 MCG 75 MCG Meloxicam Meloxicam No 1{table QD Meloxicam 15 MG 15 MG t} 15 MG Trintellix Trintellix No Trintellix 20 MG 20 MG 20 MG Ursodiol Ursodiol No Ursodiol 250 MG 250 MG 250 MG Accu-Chek Accu-Chek No Accu-Chek Sarika Plus Sarika Plus Sarika Plus - - - busPIRone busPIRone No 1{table BID busPIRone HCl 15 MG HCl 15 MG t} HCl 15 MG Albuterol Albuterol No 3{ml_as TID Albuterol Sulfate Sulfate _needed Sulfate (2.5 (2.5 } (2.5 MG/3ML) MG/3ML) MG/3ML) 0.083% 0.083% 0.083% BD Pen BD Pen No QD BD Pen Needle Janet Needle Janet Needle 2nd Gen 32G 2nd Gen 32G Janet 2nd X 4 MM X 4 MM Gen 32G X 4 MM Oxybutynin Oxybutynin No 1{table QD Oxybutynin Chloride ER Chloride ER t} Chloride 10 MG 10 MG ER 10 MG Lantus Lantus No QD Lantus SoloStar SoloStar SoloStar 100 UNIT/ML 100 UNIT/ML 100 UNIT/ML Trintellix Trintellix No 1{table QD Trintellix 20 MG 20 MG t} 20 MG Cetirizine Cetirizine No 1{table Cetirizine HCl 10 MG HCl 10 MG t} HCl 10 MG Pantoprazol Pantoprazol No QD Pantoprazo e Sodium 40 e Sodium 40 le Sodium MG MG 40 MG Janumet Janumet No 1{table BID Janumet 50-1000 MG 50-1000 MG t_with_ 50-1000 MG meals} busPIRone busPIRone No busPIRone HCl 15 MG HCl 15 MG HCl 15 MG Myrbetriq Myrbetriq No 1{table QD Myrbetriq 25 MG 25 MG t} 25 MG Gabapentin Gabapentin No 1{capsu BID Gabapentin 300 MG 300 MG le} 300 MG Gabapentin Gabapentin No Gabapentin 300 MG 300 MG 300 MG Lantus Lantus No Lantus SoloStar SoloStar SoloStar 100 UNIT/ML 100 UNIT/ML 100 UNIT/ML Fluticasone Fluticasone No Fluticason Propionate Propionate e 50 MCG/ACT 50 MCG/ACT Propionate 50 MCG/ACT Accu-Chek Accu-Chek No Accu-Chek Softclix Softclix Softclix Lancets - Lancets - Lancets - Aspir-Low Aspir-Low No 1{table QD Aspir-Low 81 MG 81 MG t} 81 MG Janumet Janumet No Janumet 50-1000 MG 50-1000 MG 50-1000 MG Ursodiol Ursodiol No QD Ursodiol 300 MG 300 MG 300 MG Oxybutynin Oxybutynin No Oxybutynin Chloride 5 Chloride 5 Chloride 5 MG MG MG Celecoxib Celecoxib No 1{capsu QD Celecoxib 200 MG 200 MG le_with 200 MG _food} Ursodiol Ursodiol No 1{table QD Ursodiol 250 MG 250 MG t_with_ 250 MG food} Levothyroxi Levothyroxi No QD Levothyrox ne Sodium ne Sodium ine Sodium 75 MCG 75 MCG 75 MCG Meloxicam Meloxicam No 1{table QD Meloxicam 15 MG 15 MG t} 15 MG Trintellix Trintellix No Trintellix 20 MG 20 MG 20 MG Ursodiol Ursodiol No Ursodiol 250 MG 250 MG 250 MG Accu-Chek Accu-Chek No Accu-Chek Sarika Plus Sarika Plus Sarika Plus - - - busPIRone busPIRone No 1{table BID busPIRone HCl 15 MG HCl 15 MG t} HCl 15 MG Albuterol Albuterol No 3{ml_as TID Albuterol Sulfate Sulfate _needed Sulfate (2.5 (2.5 } (2.5 MG/3ML) MG/3ML) MG/3ML) 0.083% 0.083% 0.083% BD Pen BD Pen No QD BD Pen Needle Janet Needle Janet Needle 2nd Gen 32G 2nd Gen 32G Janet 2nd X 4 MM X 4 MM Gen 32G X 4 MM Oxybutynin Oxybutynin No 1{table QD Oxybutynin Chloride ER Chloride ER t} Chloride 10 MG 10 MG ER 10 MG Lantus Lantus No QD Lantus SoloStar SoloStar SoloStar 100 UNIT/ML 100 UNIT/ML 100 UNIT/ML Celecoxib Celecoxib No 1{capsu QD Celecoxib 200 MG 200 MG le_with 200 MG _food} Gabapentin Gabapentin No Gabapentin 300 MG 300 MG 300 MG Fluticasone Fluticasone No Fluticason Propionate Propionate e 50 MCG/ACT 50 MCG/ACT Propionate 50 MCG/ACT Accu-Chek Accu-Chek No Accu-Chek Sarika Plus Sarika Plus Sarika Plus - - - Pantoprazol Pantoprazol No QD Pantoprazo e Sodium 40 e Sodium 40 le Sodium MG MG 40 MG Janumet Janumet No Janumet 50-1000 MG 50-1000 MG 50-1000 MG Ursodiol Ursodiol No Ursodiol 250 MG 250 MG 250 MG Accu-Chek Accu-Chek No Accu-Chek Softclix Softclix Softclix Lancets - Lancets - Lancets - Myrbetriq Myrbetriq No 1{table QD Myrbetriq 25 MG 25 MG t} 25 MG Trintellix Trintellix No Trintellix 20 MG 20 MG 20 MG Meloxicam Meloxicam No 1{table QD Meloxicam 15 MG 15 MG t} 15 MG Albuterol Albuterol No 3{ml_as TID Albuterol Sulfate Sulfate _needed Sulfate (2.5 (2.5 } (2.5 MG/3ML) MG/3ML) MG/3ML) 0.083% 0.083% 0.083% BD Pen BD Pen No QD BD Pen Needle Janet Needle Janet Needle 2nd Gen 32G 2nd Gen 32G Janet 2nd X 4 MM X 4 MM Gen 32G X 4 MM Cetirizine Cetirizine No 1{table Cetirizine HCl 10 MG HCl 10 MG t} HCl 10 MG Janumet Janumet No 1{table BID Janumet 50-1000 MG 50-1000 MG t_with_ 50-1000 MG meals} Lantus Lantus No QD Lantus SoloStar SoloStar SoloStar 100 UNIT/ML 100 UNIT/ML 100 UNIT/ML Oxybutynin Oxybutynin No Oxybutynin Chloride 5 Chloride 5 Chloride 5 MG MG MG Levothyroxi Levothyroxi No QD Levothyrox ne Sodium ne Sodium ine Sodium 75 MCG 75 MCG 75 MCG busPIRone busPIRone No busPIRone HCl 15 MG HCl 15 MG HCl 15 MG Oxybutynin Oxybutynin No 1{table QD Oxybutynin Chloride ER Chloride ER t} Chloride 10 MG 10 MG ER 10 MG Gabapentin Gabapentin No 1{capsu BID Gabapentin 300 MG 300 MG le} 300 MG Trintellix Trintellix No 1{table QD Trintellix 20 MG 20 MG t} 20 MG Aspir-Low Aspir-Low No 1{table QD Aspir-Low 81 MG 81 MG t} 81 MG Aspir-Low Aspir-Low No 1{table QD Aspir-Low 81 MG 81 MG t} 81 MG Lantus Lantus No QD Lantus SoloStar SoloStar SoloStar 100 UNIT/ML 100 UNIT/ML 100 UNIT/ML Ursodiol Ursodiol No Ursodiol 250 MG 250 MG 250 MG Oxybutynin Oxybutynin No Oxybutynin Chloride 5 Chloride 5 Chloride 5 MG MG MG Cetirizine Cetirizine No 1{table Cetirizine HCl 10 MG HCl 10 MG t} HCl 10 MG BD Pen BD Pen No QD BD Pen Needle Janet Needle Janet Needle 2nd Gen 32G 2nd Gen 32G Janet 2nd X 4 MM X 4 MM Gen 32G X 4 MM busPIRone busPIRone No busPIRone HCl 15 MG HCl 15 MG HCl 15 MG Pantoprazol Pantoprazol No QD Pantoprazo e Sodium 40 e Sodium 40 le Sodium MG MG 40 MG Fluticasone Fluticasone No Fluticason Propionate Propionate e 50 MCG/ACT 50 MCG/ACT Propionate 50 MCG/ACT Gabapentin Gabapentin No Gabapentin 300 MG 300 MG 300 MG Meloxicam Meloxicam No 1{table QD Meloxicam 15 MG 15 MG t} 15 MG Gabapentin Gabapentin No 1{capsu BID Gabapentin 300 MG 300 MG le} 300 MG Myrbetriq Myrbetriq No 1{table QD Myrbetriq 25 MG 25 MG t} 25 MG Accu-Chek Accu-Chek No Accu-Chek Softclix Softclix Softclix Lancets - Lancets - Lancets - Trintellix Trintellix No Trintellix 20 MG 20 MG 20 MG Janumet Janumet No 1{table BID Janumet 50-1000 MG 50-1000 MG t_with_ 50-1000 MG meals} Albuterol Albuterol No 3{ml_as TID Albuterol Sulfate Sulfate _needed Sulfate (2.5 (2.5 } (2.5 MG/3ML) MG/3ML) MG/3ML) 0.083% 0.083% 0.083% Levothyroxi Levothyroxi No QD Levothyrox ne Sodium ne Sodium ine Sodium 75 MCG 75 MCG 75 MCG Accu-Chek Accu-Chek No Accu-Chek Sarika Plus Sarika Plus Sarika Plus - - - Janumet Janumet No Janumet 50-1000 MG 50-1000 MG 50-1000 MG Oxybutynin Oxybutynin No 1{table QD Oxybutynin Chloride ER Chloride ER t} Chloride 10 MG 10 MG ER 10 MG Trintellix Trintellix No 1{table QD Trintellix 20 MG 20 MG t} 20 MG Celecoxib Celecoxib No 1{capsu QD Celecoxib 200 MG 200 MG le_with 200 MG _food} busPIRone busPIRone No busPIRone HCl 15 MG HCl 15 MG HCl 15 MG BD Pen BD Pen No QD BD Pen Needle Janet Needle Janet Needle 2nd Gen 32G 2nd Gen 32G Janet 2nd X 4 MM X 4 MM Gen 32G X 4 MM Aspir-Low Aspir-Low No 1{table QD Aspir-Low 81 MG 81 MG t} 81 MG Pantoprazol Pantoprazol No QD Pantoprazo e Sodium 40 e Sodium 40 le Sodium MG MG 40 MG Cetirizine Cetirizine No 1{table Cetirizine HCl 10 MG HCl 10 MG t} HCl 10 MG Fluticasone Fluticasone No Fluticason Propionate Propionate e 50 MCG/ACT 50 MCG/ACT Propionate 50 MCG/ACT Albuterol Albuterol No 3{ml_as TID Albuterol Sulfate Sulfate _needed Sulfate (2.5 (2.5 } (2.5 MG/3ML) MG/3ML) MG/3ML) 0.083% 0.083% 0.083% Gabapentin Gabapentin No Gabapentin 300 MG 300 MG 300 MG Janumet Janumet No Janumet 50-1000 MG 50-1000 MG 50-1000 MG Accu-Chek Accu-Chek No Accu-Chek Softclix Softclix Softclix Lancets - Lancets - Lancets - Accu-Chek Accu-Chek No Accu-Chek Sarika Plus Sarika Plus Sarika Plus - - - Levothyroxi Levothyroxi No QD Levothyrox ne Sodium ne Sodium ine Sodium 75 MCG 75 MCG 75 MCG Meloxicam Meloxicam No 1{table QD Meloxicam 15 MG 15 MG t} 15 MG Lantus Lantus No Lantus SoloStar SoloStar SoloStar 100 UNIT/ML 100 UNIT/ML 100 UNIT/ML Oxybutynin Oxybutynin No Oxybutynin Chloride 5 Chloride 5 Chloride 5 MG MG MG Gabapentin Gabapentin No 1{capsu BID Gabapentin 300 MG 300 MG le} 300 MG Ursodiol Ursodiol No Ursodiol 250 MG 250 MG 250 MG Trintellix Trintellix No Trintellix 20 MG 20 MG 20 MG Myrbetriq Myrbetriq No 1{table QD Myrbetriq 25 MG 25 MG t} 25 MG Oxybutynin Oxybutynin No 1{table QD Oxybutynin Chloride ER Chloride ER t} Chloride 10 MG 10 MG ER 10 MG Celecoxib Celecoxib No 1{capsu QD Celecoxib 200 MG 200 MG le_with 200 MG _food} busPIRone busPIRone No busPIRone HCl 15 MG HCl 15 MG HCl 15 MG BD Pen BD Pen No QD BD Pen Needle Janet Needle Janet Needle 2nd Gen 32G 2nd Gen 32G Janet 2nd X 4 MM X 4 MM Gen 32G X 4 MM Aspir-Low Aspir-Low No 1{table QD Aspir-Low 81 MG 81 MG t} 81 MG Pantoprazol Pantoprazol No QD Pantoprazo e Sodium 40 e Sodium 40 le Sodium MG MG 40 MG Cetirizine Cetirizine No 1{table Cetirizine HCl 10 MG HCl 10 MG t} HCl 10 MG Fluticasone Fluticasone No Fluticason Propionate Propionate e 50 MCG/ACT 50 MCG/ACT Propionate 50 MCG/ACT Albuterol Albuterol No 3{ml_as TID Albuterol Sulfate Sulfate _needed Sulfate (2.5 (2.5 } (2.5 MG/3ML) MG/3ML) MG/3ML) 0.083% 0.083% 0.083% Gabapentin Gabapentin No Gabapentin 300 MG 300 MG 300 MG Janumet Janumet No Janumet 50-1000 MG 50-1000 MG 50-1000 MG Accu-Chek Accu-Chek No Accu-Chek Softclix Softclix Softclix Lancets - Lancets - Lancets - Accu-Chek Accu-Chek No Accu-Chek Sarika Plus Sarika Plus Sarika Plus - - - Levothyroxi Levothyroxi No QD Levothyrox ne Sodium ne Sodium ine Sodium 75 MCG 75 MCG 75 MCG Meloxicam Meloxicam No 1{table QD Meloxicam 15 MG 15 MG t} 15 MG Lantus Lantus No Lantus SoloStar SoloStar SoloStar 100 UNIT/ML 100 UNIT/ML 100 UNIT/ML Oxybutynin Oxybutynin No Oxybutynin Chloride 5 Chloride 5 Chloride 5 MG MG MG Gabapentin Gabapentin No 1{capsu BID Gabapentin 300 MG 300 MG le} 300 MG Ursodiol Ursodiol No Ursodiol 250 MG 250 MG 250 MG Trintellix Trintellix No Trintellix 20 MG 20 MG 20 MG Myrbetriq Myrbetriq No 1{table QD Myrbetriq 25 MG 25 MG t} 25 MG Oxybutynin Oxybutynin No 1{table QD Oxybutynin Chloride ER Chloride ER t} Chloride 10 MG 10 MG ER 10 MG Celecoxib Celecoxib No 1{capsu QD Celecoxib 200 MG 200 MG le_with 200 MG _food} BD Pen BD Pen No QD BD Pen Needle Janet Needle Janet Needle 2nd Gen 32G 2nd Gen 32G Janet 2nd X 4 MM X 4 MM Gen 32G X 4 MM busPIRone busPIRone No 1{table BID busPIRone HCl 15 MG HCl 15 MG t} HCl 15 MG Myrbetriq Myrbetriq No 1{table QD Myrbetriq 25 MG 25 MG t} 25 MG Levothyroxi Levothyroxi No QD Levothyrox ne Sodium ne Sodium ine Sodium 75 MCG 75 MCG 75 MCG Janumet Janumet No 1{table BID Janumet 50-1000 MG 50-1000 MG t_with_ 50-1000 MG meals} Cetirizine Cetirizine No 1{table QD Cetirizine HCl 10 MG HCl 10 MG t} HCl 10 MG Accu-Chek Accu-Chek No BID Accu-Chek Softclix Softclix Softclix Lancets - Lancets - Lancets - Levothyroxi Levothyroxi No QD Levothyrox ne Sodium ne Sodium ine Sodium 75 MCG 75 MCG 75 MCG Fluticasone Fluticasone No Fluticason Propionate Propionate e 50 MCG/ACT 50 MCG/ACT Propionate 50 MCG/ACT Janumet Janumet No 1{table BID Janumet 50-1000 MG 50-1000 MG t_with_ 50-1000 MG meals} Trintellix Trintellix No 1{table QD Trintellix 20 MG 20 MG t} 20 MG Albuterol Albuterol No 3{ml_as TID Albuterol Sulfate Sulfate _needed Sulfate (2.5 (2.5 } (2.5 MG/3ML) MG/3ML) MG/3ML) 0.083% 0.083% 0.083% Accu-Chek Accu-Chek No BID Accu-Chek Sarika Plus Sarika Plus Sarika Plus - - - Ursodiol Ursodiol No 1{table QD Ursodiol 250 MG 250 MG t} 250 MG Lantus Lantus No QD Lantus SoloStar SoloStar SoloStar 100 UNIT/ML 100 UNIT/ML 100 UNIT/ML Benzonatate Benzonatate No 1{capsu TID Benzonatat 100 MG 100 MG le_as_n e 100 MG eeded} Gabapentin Gabapentin No 1{capsu BID Gabapentin 300 MG 300 MG le} 300 MG Pantoprazol Pantoprazol No 1{table QD Pantoprazo e Sodium 40 e Sodium 40 t} le Sodium MG MG 40 MG Lantus Lantus No QD Lantus SoloStar SoloStar SoloStar 100 UNIT/ML 100 UNIT/ML 100 UNIT/ML Aspir-Low Aspir-Low No 1{table QD Aspir-Low 81 MG 81 MG t} 81 MG BD Pen BD Pen No QD BD Pen Needle Janet Needle Janet Needle 2nd Gen 32G 2nd Gen 32G Janet 2nd X 4 MM X 4 MM Gen 32G X 4 MM busPIRone busPIRone No 1{table BID busPIRone HCl 15 MG HCl 15 MG t} HCl 15 MG Myrbetriq Myrbetriq No 1{table QD Myrbetriq 25 MG 25 MG t} 25 MG Levothyroxi Levothyroxi No QD Levothyrox ne Sodium ne Sodium ine Sodium 75 MCG 75 MCG 75 MCG Janumet Janumet No 1{table BID Janumet 50-1000 MG 50-1000 MG t_with_ 50-1000 MG meals} Cetirizine Cetirizine No 1{table QD Cetirizine HCl 10 MG HCl 10 MG t} HCl 10 MG Accu-Chek Accu-Chek No BID Accu-Chek Softclix Softclix Softclix Lancets - Lancets - Lancets - Levothyroxi Levothyroxi No QD Levothyrox ne Sodium ne Sodium ine Sodium 75 MCG 75 MCG 75 MCG Fluticasone Fluticasone No Fluticason Propionate Propionate e 50 MCG/ACT 50 MCG/ACT Propionate 50 MCG/ACT Janumet Janumet No 1{table BID Janumet 50-1000 MG 50-1000 MG t_with_ 50-1000 MG meals} Trintellix Trintellix No 1{table QD Trintellix 20 MG 20 MG t} 20 MG Albuterol Albuterol No 3{ml_as TID Albuterol Sulfate Sulfate _needed Sulfate (2.5 (2.5 } (2.5 MG/3ML) MG/3ML) MG/3ML) 0.083% 0.083% 0.083% Accu-Chek Accu-Chek No BID Accu-Chek Sarika Plus Sarika Plus Sarika Plus - - - Ursodiol Ursodiol No 1{table QD Ursodiol 250 MG 250 MG t} 250 MG Lantus Lantus No QD Lantus SoloStar SoloStar SoloStar 100 UNIT/ML 100 UNIT/ML 100 UNIT/ML Benzonatate Benzonatate No 1{capsu TID Benzonatat 100 MG 100 MG le_as_n e 100 MG eeded} Gabapentin Gabapentin No 1{capsu BID Gabapentin 300 MG 300 MG le} 300 MG Pantoprazol Pantoprazol No 1{table QD Pantoprazo e Sodium 40 e Sodium 40 t} le Sodium MG MG 40 MG Lantus Lantus No QD Lantus SoloStar SoloStar SoloStar 100 UNIT/ML 100 UNIT/ML 100 UNIT/ML Aspir-Low Aspir-Low No 1{table QD Aspir-Low 81 MG 81 MG t} 81 MG Trintellix Trintellix No Trintellix 20 MG 20 MG 20 MG Gabapentin Gabapentin No 1{capsu BID Gabapentin 300 MG 300 MG le} 300 MG Benzonatate Benzonatate No 1{capsu TID Benzonatat 100 MG 100 MG le_as_n e 100 MG eeded} Janumet Janumet No 1{table BID Janumet 50-1000 MG 50-1000 MG t_with_ 50-1000 MG meals} Ursodiol Ursodiol No Ursodiol 250 MG 250 MG 250 MG Lantus Lantus No QD Lantus SoloStar SoloStar SoloStar 100 UNIT/ML 100 UNIT/ML 100 UNIT/ML Accu-Chek Accu-Chek No BID Accu-Chek Softclix Softclix Softclix Lancets - Lancets - Lancets - Accu-Chek Accu-Chek No BID Accu-Chek Sarika Plus Sarika Plus Sarika Plus - - - Janumet Janumet No 1{table BID Janumet 50-1000 MG 50-1000 MG t_with_ 50-1000 MG meals} Cetirizine Cetirizine No 1{table QD Cetirizine HCl 10 MG HCl 10 MG t} HCl 10 MG Albuterol Albuterol No 3{ml_as TID Albuterol Sulfate Sulfate _needed Sulfate (2.5 (2.5 } (2.5 MG/3ML) MG/3ML) MG/3ML) 0.083% 0.083% 0.083% Pantoprazol Pantoprazol No 1{table QD Pantoprazo e Sodium 40 e Sodium 40 t} le Sodium MG MG 40 MG BD Pen BD Pen No QD BD Pen Needle Janet Needle Janet Needle 2nd Gen 32G 2nd Gen 32G Janet 2nd X 4 MM X 4 MM Gen 32G X 4 MM Levothyroxi Levothyroxi No QD Levothyrox ne Sodium ne Sodium ine Sodium 75 MCG 75 MCG 75 MCG busPIRone busPIRone No 1{table BID busPIRone HCl 15 MG HCl 15 MG t} HCl 15 MG Aspir-Low Aspir-Low No 1{table QD Aspir-Low 81 MG 81 MG t} 81 MG Myrbetriq Myrbetriq No 1{table QD Myrbetriq 25 MG 25 MG t} 25 MG Multivitami Multivitami No Multivitam n Adult n Adult in Adult CHANTIX CHANTIX No CHANTIX Lantus Lantus No QD Lantus SoloStar SoloStar SoloStar 100 UNIT/ML 100 UNIT/ML 100 UNIT/ML Levothyroxi Levothyroxi No QD Levothyrox ne Sodium ne Sodium ine Sodium 75 MCG 75 MCG 75 MCG Fluticasone Fluticasone No Fluticason Propionate Propionate e 50 MCG/ACT 50 MCG/ACT Propionate 50 MCG/ACT Trintellix Trintellix No Trintellix 20 MG 20 MG 20 MG Gabapentin Gabapentin No 1{capsu BID Gabapentin 300 MG 300 MG le} 300 MG Benzonatate Benzonatate No 1{capsu TID Benzonatat 100 MG 100 MG le_as_n e 100 MG eeded} Janumet Janumet No 1{table BID Janumet 50-1000 MG 50-1000 MG t_with_ 50-1000 MG meals} Ursodiol Ursodiol No Ursodiol 250 MG 250 MG 250 MG Lantus Lantus No QD Lantus SoloStar SoloStar SoloStar 100 UNIT/ML 100 UNIT/ML 100 UNIT/ML Accu-Chek Accu-Chek No BID Accu-Chek Softclix Softclix Softclix Lancets - Lancets - Lancets - Immunizations Ordered Immunization Filled Immunization Date Status Commen ts Source Name Name Afluria Afluria 2021-01-01 Completed [facility] - [facility] Afluria Afluria 2021-01-01 Completed [facility]00 [facility] Afluria Afluria 2021-01-01 Completed [facility] 14:[facility]:00 - [facility] Afluria Afluria 2021-01-01 Completed [facility] 14[facility]46:00 - [facility] Afluria Afluria 2021-01-01 Completed [facility] 14:46:00 - [facility] Afluria Afluria 2021-01-01 Completed [facility] 14:46:00 [facility] Afluria Afluria 2021-01-01 Completed [facility] 14:46:00 - [facility] Afluria Afluria 2021-01-01 Completed [facility] 14[facility]46:00 - [facility] Afluria Afluria 2021-01-01 Completed [facility] 14:46:00 - [facility] Afluria Afluria 2021-01-01 Completed [facility] 14:46:00 - [facility] Afluria Afluria 2021-01-01 Completed [facility] 14:[facility]:00 [facility] Afluria Afluria 2021-01-01 Completed [facility] 14:[facility]:00 [facility] Afluria Afluria 2021-01-01 Completed [facility] 14[facility]46:00 - [facility] Afluria Afluria 2021-01-01 Completed [facility] 14:46:00 - [facility] Afluria Afluria 2021-01-01 Completed [facility] 14:46:00 - [facility] Afluria Afluria 2021-01-01 Completed [facility] 14:46:00 - [facility] Afluria Afluria 2021-01-01 Completed [facility] 14:46:00 - [facility] Afluria Afluria 2021-01-01 Completed [facility] 14:46:00 - [facility] Afluria Afluria 2021-01-01 Completed [facility] 14:46:00 - [facility] Afluria Afluria 2021-01-01 Completed [facility] 14:46:00 - [facility] Afluria Afluria 2021-01-01 Completed [facility] 14:46:00 - [facility] Afluria Afluria 2021-01-01 Completed [facility] 14:46:00 - [facility] Afluria Afluria 2021-01-01 Completed [facility] 14:46:00 - [facility] Afluria Afluria 2021-01-01 Completed [facility] 14:46:00 - [facility] Fluzone Fluzone 2019-04-02 Completed [facility] 08:45:00 - [facility] Fluzone Fluzone 2019-04-02 Completed [facility] 08:45:00 - [facility] Fluzone Fluzone 2019-04-02 Completed [facility] 08:45:00 - [facility] Fluzone Fluzone 2019-04-02 Completed [facility] 08:45:00 - [facility] Fluzone Fluzone 2019-04-02 Completed [facility] 08:45:00 - [facility] Fluzone Fluzone 2019-04-02 Completed [facility] 08:45:00 - [facility] Fluzone Fluzone 2019-04-02 Completed [facility] 08:45:00 - [facility] Fluzone Fluzone 2019-04-02 Completed [facility] 08:45:00 - [facility] Fluzone Fluzone 2019-04-02 Completed [facility] 08:45:00 - [facility] Fluzone Fluzone 2019-04-02 Completed [facility] 08:45:00 - [facility] Fluzone Fluzone 2019-04-02 Completed [facility] 08:45:00 - [facility] Fluzone Fluzone 2019-04-02 Completed [facility] 08:45:00 - [facility] Fluzone Fluzone 2019-04-02 Completed [facility] 08:45:00 - [facility] Fluzone Fluzone 2019-04-02 Completed [facility] 08:45:00 - [facility] Fluzone Fluzone 2019-04-02 Completed [facility] 08:45:00 - [facility] Fluzone Fluzone 2019-04-02 Completed [facility] 08:45:00 - [facility] Fluzone Fluzone 2019-04-02 Completed [facility] 08:45:00 - [facility] Fluzone Fluzone 2019-04-02 Completed [facility] 08:45:00 - [facility] Fluzone Fluzone 2019-04-02 Completed [facility] 08:45:00 - [facility] Fluzone Fluzone 2019-04-02 Completed [facility] 08:45:00 - [facility] Fluzone Fluzone 2019-04-02 Completed [facility] 08:45:00 - [facility] Fluzone Fluzone 2019-04-02 Completed [facility] 08:45:00 - [facility] Fluzone Fluzone 2019-04-02 Completed [facility] 08:45:00 - [facility] Fluzone Fluzone 2019-04-02 Completed [facility] 08:45:00 - [facility] Fluzone Fluzone 2019-04-02 Completed [facility] 08:45:00 - [facility] Fluzone Fluzone 2019-04-02 Completed [facility] 08:45:00 - [facility] Fluzone Fluzone 2019-04-02 Completed [facility] 08:45:00 - [facility] Fluzone Fluzone 2019-04-02 Completed [facility] 08:45:00 - [facility] Fluzone Fluzone 2019-04-02 Completed [facility] 08:45:00 [facility] Fluzone Fluzone 2019-04-02 Completed [facility] 00:00:00 [facility] Vital Signs Vital Name Observation Time Observation Value Comments Source height 2021-11-15 15:40:00 64.50 [in_i] [facility] weight 2021-11-15 15:40:00 226.8 [lb_av] [facility] temperature 2021-11-15 15:40:00 97.2 [degF] [facility] bmi 2021-11-15 15:40:00 38.32 kg/m2 [facility] oximetry 2021-11-15 15:40:00 96 % [facility] respiratory rate 2021-11-15 15:40:00 16 /min [facility] blood pressure 2021-11-15 15:40:00 124 mm[Hg] [facility] systolic [facility] blood pressure 2021-11-15 15:40:00 68 mm[Hg] [facility] diastolic [facility] Systolic blood 2021-10-30 16:52:00 126 mm[Hg] [facility] Diastolic blood 2021-10-30 16:52:00 79 mm[Hg] [facility] Heart rate 2021-10-30 16:52:00 74 /min [facility] Body weight 2021-10-30 16:52:[address] [facility] BMI 2021-10-30 16:52:00 39.96 kg/m2 [facility] Oxygen saturation in 2021-10-30 16:52:00 98 /min [facility] blood by [facility] Pulse oximetry [place] height 2021-10-18 15:40:00 64.50 [in_i] [facility] weight 2021-10-18 15:40:00 228.8 [lb_av] [facility] temperature 2021-10-18 15:40:00 97.4 [degF] [facility] bmi 2021-10-18 15:40:00 38.66 kg/m2 [facility] oximetry 2021-10-18 15:40:00 97 % [facility] respiratory rate 2021-10-18 15:40:00 16 /min [facility] blood pressure 2021-10-18 15:40:00 130 mm[Hg] [facility] - systolic [facility] blood pressure 2021-10-18 15:40:00 68 mm[Hg] [facility] - diastolic [facility] height 2021-09-13 15:40:00 64.50 [in_i] [facility] weight 2021-09-13 15:40:00 231.6 [lb_av] [facility] temperature 2021-09-13 15:40:00 97.2 [degF] [facility] bmi 2021-09-13 15:40:00 39.14 kg/m2 [facility] oximetry 2021-09-13 15:40:00 96 % [facility] respiratory rate 2021-09-13 15:40:00 16 /min [facility] blood pressure 2021-09-13 15:40:00 140 mm[Hg] [facility] - systolic [facility] blood pressure 2021-09-13 15:40:00 82 mm[Hg] [facility] - diastolic [facility] height 2021-08-14 13:00:00 64.50 [in_i] [facility] weight 2021-08-14 13:00:00 231 [lb_av] [facility] temperature 2021-08-14 13:00:00 96.8 [degF] [facility] bmi 2021-08-14 13:00:00 39.03 kg/m2 [facility] oximetry 2021-08-14 13:00:00 98 % [facility] respiratory rate 2021-08-14 13:00:00 16 /min [facility] blood pressure 2021-08-14 13:00:00 155 mm[Hg] Common [facility] - systolic [facility] blood pressure 2021-08-14 13:00:00 70 mm[Hg] [facility] - diastolic [facility] height 2021-06-05 14:00:00 64.50 [in_i] [facility] weight 2021-06-05 14:00:00 233 [lb_av] [facility] temperature 2021-06-05 14:00:00 96.7 [degF] [facility] bmi 2021-06-05 14:00:00 39.37 kg/m2 [facility] blood pressure 2021-06-05 14:00:00 146 mm[Hg] [facility] - systolic [facility] blood pressure 2021-06-05 14:00:00 84 mm[Hg] [facility] - diastolic [facility] height 2021-05-11 13:20:00 64.50 [in_i] [facility] weight 2021-05-11 13:20:00 228.7 [lb_av] Common [facility] temperature 2021-05-11 13:20:00 97.8 [degF] [facility] bmi 2021-05-11 13:20:00 38.65 kg/m2 [facility] oximetry 2021-05-11 13:20:00 98 % [facility] respiratory rate 2021-05-11 13:20:00 18 /min [facility] blood pressure 2021-05-11 13:20:00 139 mm[Hg] [facility] - systolic [facility] blood pressure 2021-05-11 13:20:00 67 mm[Hg] [facility] height 2021-05-11 14:00:00 64.50 [in_i] [facility] weight 2021-05-11 14:00:00 228.7 [lb_av] [facility] temperature 2021-05-11 14:00:00 97.8 [degF] [facility] bmi 2021-05-11 14:00:00 38.65 kg/m2 [facility] blood pressure 2021-05-11 14:00:00 139 mm[Hg] [facility] systolic [facility] blood pressure 2021-05-11 14:00:00 67 mm[Hg] [facility] diastolic [facility] height 2021-04-02 15:20:00 64.50 [in_i] [facility] weight 2021-04-02 15:20:00 228 [lb_av] [facility] temperature 2021-04-02 15:20:00 96.9 [degF] [facility] bmi 2021-04-02 15:20:00 38.53 kg/m2 [facility] oximetry 2021-04-02 15:20:00 97 % [facility] respiratory rate 2021-04-02 15:20:00 19 /min Comm on [facility] - [facility] blood pressure 2021-04-02 15:20:00 138 mm[Hg] Common [facility] - systolic [facility] blood pressure 2021-04-02 15:20:00 65 mm[Hg] [facility] - diastolic [facility] height 2020-12-22 10:00:00 64.50 [in_i] [facility] weight 2020-12-22 10:00:00 220 [lb_av] [facility] bmi 2020-12-22 10:00:00 37.18 kg/m2 [facility] Procedures Procedure Date / Time Performed Performing Clinician Sour e EXTERNAL PROVIDER 2021-11-26 05:01:00 Doctor Unassigned, No [facility] RECORDS Name Medical Branch Encounters Start End Encounter Admission Attending Care Care Encounter Source Date/Time Date/Time Type Type Clinicians Facility Department ID 2021-12-14 Outpatient Ruelas, Na [facility] [id number] [facility] 09:46:00 [facility] 2021-10-16 Outpatient Ruelas, Na STLMLC STLMLC [id number] [facility] 15:14:01 [facility] 2021-09-12 Outpatient Ruelas, Na STLMLC STLMLC [id number] 2 Common 15:57:01 [facility] 2021-09-11 Outpatient Ruelas, Na STLMLC STLMLC [id number] 2 Common 10:21:01 [facility] 2021-08-13 Outpatient Ruelas, Na STLMLC STLMLC [id number] 2 Common 13:31:00 [facility] 2021-05-18 Outpatient Ruelas, Na STLMLC STLMLC [id number] 2 Common 11:01:01 [facility] 2021-05-11 Outpatient Ruelas, Na STLMLC STLMLC [id number] 2 Common 13:17:01 [facility] 2021-05-10 Outpatient Ruelas, Na STLMLC STLMLC [id number] 2 Common 09:35:00 [facility] 2021-05-09 Outpatient Ruelas, Na STLMLC STLMLC [id number] 2 Common 11:36:01 [facility] 2021-04-10 Outpatient Ruelas, Na STLMLC STLMLC [id number] 2 Common 14:01:01 [facility] 2021-04-04 Outpatient Ruelas, Na STLMLC STLMLC [id number] 2 Common 14:35:57 [facility] 2021-04-04 Outpatient Ruelas, Na STLMLC STLMLC [id number] 2 Common 14:32:10 [facility] 2021-04-04 Outpatient Ruelas, Na STLMLC STLMLC [id number] 2 Common 14:26:31 [id number] [facility] 2021-04-04 Outpatient Ruelas, Na STLMLC STLMLC [id number] 2 Common 14:22:06 [id number] [facility] 2021-04-04 Outpatient Ruelas, Na STLMLC STLMLC [id number] 2 Common 13:47:57 [id number] [facility] 2021-04-04 Outpatient Ruelas, Na STLMLC STLMLC [id number] 2 Common 13:31:15 [id number] [facility] 2021-04-04 Outpatient Ruelas, Na STLMLC STLMLC [id number] 2 Common 13:17:49 [id number] [facility] 2021-04-04 Outpatient Ruelas, Na STLMLC STLMLC [id number] 2 Common 13:15:11 [id number] [facility] 2021-04-04 Outpatient Ruelas, Na STLMLC STLMLC [id number] 2 Common 12:56:33 [id number] [facility] 2021-04-04 Outpatient Ruelas, Na STLMLC STLMLC [id number] 2 Common 12:51:32 [id number] [facility] 2021-04-04 Outpatient Ruelas, Na STLMLC STLMLC [id number] 2 Common 12:45:45 [id number] [facility] 2021-04-04 Outpatient Ruelas, Na STLMLC STLMLC [id number] 2 Common 12:44:50 75318 [facility] 2021-04-04 Outpatient Ruelas, Na STLMLC STLMLC [id number] 2 Common 12:26:48 [id number] [facility] 2021-04-04 Outpatient Ruelas, Na STLMLC STLMLC [id number] 2 Common 12:25:49 [id number] [facility] 2021-04-04 Outpatient Ruelas, Na STLMLC STLMLC [id number] 2 Common 12:12:47 [id number] [facility] 2021-04-04 Outpatient Ruelas, Na STLMLC STLMLC [id number] 2 Common 12:03:01 77112 [facility] 2021-04-04 Outpatient Ruelas, Na STLMLC STLMLC [id number] 2 Common 12:02:32 [id number] [facility] 2021-04-04 Outpatient Ruelas, Na STLMLC STLMLC [id number] 2 Common 11:46:04 [id number] [facility] 2021-04-04 Outpatient Ruelas, Na STLMLC STLMLC [id number] 2 Common 11:45:14 [id number] [facility] 2021-04-04 Outpatient Ruelas, Na STLMLC STLMLC [id number] 2 Common 11:44:02 [id number] [facility] 2021-04-04 Outpatient Ruelas, Na STLMLC STLMLC [id number] 2 Common 11:26:10 [id number] [facility] 2021-04-04 Outpatient Ruelas, Na STLMLC STLMLC [id number] 2 Common 11:25:37 92300 [facility] 2021-04-04 Outpatient Ruelas, Na STLMLC STLMLC [id number] 2 Common 11:02:45 [id number] [facility] 2020-04-11 Inpatient EL Elders, HCACR DAYS [id number] [facility] 11:00:00 Luis 98 [facility] 2020-03-07 Inpatient EL Elders, HCACR DAYS [id number] [facility] 14:40:00 Luis 57 [facility] 2021-12-20 2021-12-20 (WEB) STLMLC STLMLC [id number] Co mmon 00:00:00 00:00:00 [facility] 2021-11-26 2021-11-26 Orders Doctor RUBY [id number] 00:00:00 00:00:00 Only Unassigned, WILLIAM [id number] ity of [place] [facility] [id number] Tramaine as [phone] [address] 2021-11-15 2021-11-15 OFFICE STLMLC STLMLC [id number] Co mmon 00:00:00 00:00:00 VISIT EST Spir it PT LEVEL 3 [facility] 2021-10-30 2021-10-30 Outpatient R JOVI [facility] [id number] Univers 12:00:00 12:53:55 [facility] 2021-10-30 2021-10-30 [facility] [id number] Univers 12:00:00 12:53:55 Visit [facility] [id number] it y [facility] [id number] Tramaine as HIGINIO?BLEA [phone] [address] MEDICAL OFFICE BUILDING 2021-10-23 2021-10-23 (TEL) STLMLC STLMLC [id number] Co mmon 00:00:00 00:00:00 [facility] 2021-10-20 2021-10-20 (TEL) STLMLC STLMLC [id number] Co mmon 00:00:00 00:00:00 [facility] 2021-10-18 2021-10-18 OFFICE STLMLC STLMLC [id number] Co mmon 00:00:00 00:00:00 VISIT EST Spir it PT LEVEL 3 [facility] 2021-09-13 2021-09-13 OFFICE STLMLC STLMLC [id number] Co mmon 00:00:00 00:00:00 VISIT EST Spir it PT LEVEL 3 [facility] 2021-08-31 2021-08-31 (TEL) STLMLC STLMLC [id number] Co mmon 00:00:00 00:00:00 [facility] 2021-08-14 2021-08-14 OFFICE STLMLC STLMLC [id number] Co mmon 00:00:00 00:00:00 VISIT EST Spir it PT LEVEL 3 [facility] 2021-08-10 2021-08-10 Patient Jovi [facility] [id number] Univers 00:00:00 00:00:00 Secure Msg Chambers MULTISPEC [id number] ity of [place] [id number] [facility] [phone] [facility] [place] [address] [facility] 2021-08-08 2021-08-08 (TEL) STLMLC STLMLC [id number] Co mmon 00:00:00 00:00:00 [facility] 2021-08-03 2021-08-03 (TEL) STLMLC STLMLC [id number] Co mmon 00:00:00 00:00:00 [facility] 2021-06-05 2021-06-05 OFFICE STLMLC STLMLC [id number] Co mmon 00:00:00 00:00:00 VISIT NEW Spir it PT LEVEL 4 - [facility] 2021-05-30 2021-05-30 (TEL) STLMLC STLMLC [id number] Co mmon 00:00:00 00:00:00 [facility] 2021-05-21 2021-05-21 [facility] [id number] Univers 14:28:47 23:59:00 ROXANEONG ity [facility] 2021-05-21 2021-05-21 Hospital [facility] [id number] Univers 14:00:00 23:59:00 Encounter Teresa [place] [id number] ity darby MÉNDEZ [id number] [facility] [id number] [facility] [address] 2021-05-14 2021-05-14 Outpatient R JOVI [facility] [id number] Univers 00:00:00 00:00:00 ROXANEONG ity [facility] 2021-05-11 2021-05-11 SUB ANNUAL STLMLC STLMLC [id number] Common 00:00:00 00:00:00 [facility] V[facility] 2021-05-11 2021-05-11 OFFICE STLMLC STLMLC [id number] Co mmon 00:00:00 00:00:00 VISIT EST Spir it PT LEVEL 3 - [facility] 2021-05-10 2021-05-10 (TEL) STLMLC STLMLC [id number] Co mmon 00:00:00 00:00:00 [facility] 2021-05-07 2021-05-07 Outpatient R [facility] [id number] Univers 14:30:00 14:30:00 [facility] 2021-05-01 2021-05-01 [facility] [id number] Univers 11:30:00 12:27:00 [facility] 2021-04-24 2021-04-24 [facility] [id number] Univers 10:30:00 11:00:00 Visit [facility] [id number] it y of [place] [id number] Tramaine as HIGINIO?BLEA [phone] [address] MEDICAL OFFICE BUILDING 2021-04-24 2021-04-24 [facility] [id number] Univers 10:30:00 10:30:00 [facility] 2021-04-09 2021-04-09 (TEL) STLMLC STLMLC [id number] Co mmon 00:00:00 00:00:00 [facility] 2021-04-02 2021-04-02 OFFICE STLMLC STLMLC [id number] Co mmon 00:00:00 00:00:00 VISIT EST Spir it PT LEVEL 3 - [facility] 2021-03-15 2021-03-15 (TEL) STLMLC STLMLC [id number] Co mmon 00:00:00 00:00:00 [facility] 2021-03-15 2021-03-15 (TEL) STLMLC STLMLC [id number] Co mmon 00:00:00 00:00:00 [facility] 2021-02-14 2021-02-14 (TEL) STLMLC STLMLC [id number] Co mmon 00:00:00 00:00:00 [facility] 2021-02-06 2021-02-06 (TEL) STLMLC STLMLC [id number] Co mmon 00:00:00 00:00:00 [facility] 2021-01-01 2021-01-01 (INJ) STLMLC STLMLC [id number] Co mmon 00:00:00 00:00:00 Injection Spir it [facility] 2021-01-01 2021-01-01 (TEL) STLMLC STLMLC [id number] Co mmon 00:00:00 00:00:00 [facility] 2020-12-27 2020-12-27 (TEL) STLMLC STLMLC [id number] Co mmon 00:00:00 00:00:00 [facility] 2020-12-22 2020-12-22 OFFICE STLMLC STLMLC [id number] Co mmon 00:00:00 00:00:00 VISIT EST Spir it PT LEVEL 3 [facility] 2020-12-22 2020-12-22 (TEL) STLMLC STLMLC [id number] Co mmon 00:00:00 00:00:00 [facility] 2020-12-22 2020-12-22 (TEL) STLMLC STLMLC [id number] Co mmon 00:00:00 00:00:00 [facility] 2020-12-01 2020-12-01 (TEL) STLMLC STLMLC [id number] Co mmon 00:00:00 00:00:00 [facility] 2020-10-24 2020-10-24 Outpatient STLMLC STLMLC [id number] Common 00:00:00 00:00:00 [facility] 2020-08-02 2020-08-02 Outpatient STLMLC STLMLC [id number] Common 00:00:00 00:00:00 [facility] 2020-07-05 2020-07-05 Outpatient STLMLC STLMLC [id number] Common 00:00:00 00:00:00 [facility] 2020-06-20 2020-06-20 Outpatient STLMLC STLMLC [id number] Common 00:00:00 00:00:00 [facility] 2020-06-20 2020-06-20 Outpatient STLMLC STLMLC [id number] Common 00:00:00 00:00:00 [facility] 2020-06-15 2020-06-15 Outpatient STLMLC STLMLC [id number] Common 00:00:00 00:00:00 [facility] 2020-06-06 2020-06-06 Outpatient STLMLC STLMLC [id number] Common 00:00:00 00:00:00 [facility] 2020-06-05 2020-06-05 Outpatient STLMLC STLMLC [id number] Common 00:00:00 00:00:00 [facility] 2020-05-29 2020-05-29 Outpatient STLMLC STLMLC [id number] Common 00:00:00 00:00:00 [facility] 2020-05-09 2020-05-09 Outpatient STLMLC STLMLC [id number] Common 00:00:00 00:00:00 [facility] 2020-05-05 2020-05-05 Outpatient STLMLC STLMLC [id number] Common 00:00:00 00:00:00 [facility] 2020-04-19 2020-04-19 Outpatient STLMLC STLMLC [id number] Common 00:00:00 00:00:00 [facility] 2020-04-07 2020-04-07 Outpatient STLMLC STLMLC [id number] Common 00:00:00 00:00:00 [facility] 2020-03-28 2020-03-28 Outpatient STLMLC STLMLC [id number] Common 00:00:00 00:00:00 [facility] 2020-02-24 2020-02-24 Outpatient STLMLC STLMLC [id number] Common 00:00:00 00:00:00 [facility] 2020-02-22 2020-02-22 Outpatient STLMLC STLMLC [id number] Common 00:00:00 00:00:00 [facility] 2020-01-14 2020-01-14 Outpatient STLMLC STLC [id number] Common 00:00:00 00:00:00 [facility] 2019-11-23 2019-11-23 [facility] [id number] Common 11:00:00 11:00:[address] [facility] 2019-11-16 2019-11-16 [facility] [id number] Common 09:52:00 09:52:[address] [facility] 2019-08-30 2019-08-30 [facility] [id number] Common 08:49:00 08:49:[address] [facility] [address] [facility] 2019-08-18 2019-08-18 [facility] [id number] Common 09:40:00 09:40:[address] [facility] 2019-08-10 2019-08-10 [facility] [id number] Common 14:31:00 14:31:[address] [facility] 2019-08-07 2019-08-07 [facility] [id number] Common 07:31:00 07:31:[address] [facility] 2019-08-06 2019-08-06 [facility] [id number] Common 09:20:00 09:20:[address] [facility] 2019-04-30 2019-04-30 [facility] [id number] Common 16:02:00 16:02:[address] [facility] 2019-04-15 2019-04-15 [facility] [id number] Common 10:26:00 10:26:[address] [facility] 2019-04-12 2019-04-12 Outpatient Ravinder Castro [id number] Common 09:27:00 09:27:00 t [employer] [address] [facility] 2019-04-02 2019-04-02 Outpatient Ravinder Castro [id number] Common 08:40:00 08:40:00 [employer] [address] [facility] 2019-04-01 2019-04-01 Outpatient Ravinder Castellont 29 [id number] Common 11:20:00 11:20:00 t [employer] [address] [facility] Results Test Description Test Time Test Comments Results Result [facility] e Comments - XR FLUORO FOR 2020-04-11 SPINE INJ 14:34:00 [facility] BRANDEE JOSÉ BUNNY : 1965 Sex: F FAX: Luis Eisenberg MD [phone] [place]: C St: REG Patient Name: BRANDEE JOSÉ BUNNY Unit No: [id number] EXAMS: CPT CODE: [id number] XR FLUORO FOR SPINE INJ 78504 Location: T 18 INDICATION: ONELIA IMPRESSION: 12 [...] By: [email or web address] Orig Print D/T: S: 04/11/2020 (7873) JAY Hardwick NAME: BRANDEE JOSÉ BUNNY MED[facility] PHYS: Luis Mora MD [address] [place] [address] BLVD : 1965 AGE: 54 SEX: F [place], [place] [address] LOC: LORRAINEU PHONE #: [phone] EXAM DATE: 04/11/2020 STATUS: REG SDC FAX #: [phone] RAD NO: DC Dt: PAGE 1 Signed Report GLUCOSE BEDSIDE TESTING 2020-04-11 11:35:00 Test Item Value Reference Range Interpretation Comme nts GLUCOSE BEDSIDE TESTING (test code = GLUBED) 189 MG/DL 70-119 H COVID Asymptomatic IH [id number] 12:52:00 Test Item Value Reference Interpretation Comments [...] i ts performancechar acteristics were determined by [facility]. Thi s test has notbeen [...] setting? No? NoAge at collection: YHCG SERUM [id number] 12:55:00 Test Item Value Reference Range Interpretation [...] 1 NORMAL code = LIPINDEX) Index/DL HGB [id number] 12:38:00 Test Item Value Reference Range Interpretation Comments RED BLOOD CELL (test code = RBC) 4.52 M/mm3 3.8-5.5 N HEMOGLOBIN (test code = HGB) 13.4 G/DL 10.6-15.8 N HEMATOCRIT (test code = HCT) 42.3 % 31.8-47.4 N MEAN CELL VOLUME (test code = MCV) 93.6 fL 80.1-101.1 N - XR CHEST 2 [id number] 12:21:00 [facility]É : 1965 Sex: F FAX: Luis Teixeira MD [phone] [place]: St: PRE Patient Name: BRANDEE JOSÉ BUNNY Unit No: [id number] EXAMS: CPT CODE: [id number] XR CHEST 2 V 77204 Site ID: [id number] HISTORY: Preoperative FINDINGS: The lungs are clear and normally expanded. The heart and pulmonary vasculature is normal. Osseous structures are unremarkable. IMPRESSION: Normal preoperative chest x-ray at 1221 Reported and signed by: Santino Golden M.D. CC: Luis Porter MD Dictated Date/Time: 04/06/2020 (1221)Technologist: Smith Benton Transcribed Date/Time: 04/06/2020 (1221) By: [email or web address] Orig Print D/T: S: 04/06/2020 (2462) 696 Imaging NAME: BRANDEE JOSÉ [address] [place] [address] PHYS: Luis Mora MDW[place], [place] : 1965 AGE: 54 SEX: F [id number] LOC: SHADI PHONE #: [phone] EXAM DATE: 04/06/2020 STATUS: PRE [facility] FAX #: [phone] RAD NO: DC Dt: PAGE 1 Signed ReportGLUCOSE BEDSIDE [id number] 07:49:00 Test Item Value Reference Range Interpretation Comments GLUCOSE BEDSIDE TESTING (test code 141 MG/DL 70-119 H = GLUBED) Novel Coronavirus 2019 [id number] 18:08:00 Test Item Value Reference Range Interpretation [...] frannie gnosis of COVID-19 infect ion under fetlvsj654(b)(1 ) of the Act, 21 U.S.C. 360bbb-3(b) [...] resul t in this assay.Performed At: [facility] [place] [address] [facility], [place] [id number] fady Gillis MD Ph:[phone] UR HCG [id number] 16:55:00 Test Item Value Reference Range Interpretation Comments UR HCG QUAL (test NEGATIVE NEG Very dilut e urines with a code = HCGQLU) low specific gravity may notcontain repr esentative levels of hCG. - XR CHEST 2 [id number] 16:55:00 [facility] BRANDEE JOSÉ : 1965 Sex: F FAX: Luis Teixeira MD [phone] [place]: O St: PRE Patient Name: BRANDEE JOSÉ Unit No: [id number] EXAMS: CPT CODE: [id number] XR CHEST 2 V 94844 - XR CHEST 2 V LOCATION: T18 INDICATION:Preop, back pain The lungs are wellexpanded and free of infiltrates. The costophrenic recesses are sharp without effusion. The heart, mediastinum and bony structures are within normal limits. IMPRESSION: No active disease. at 1655 Reported and signed by: Ruby Argueta D.O. CC: Luis Porter MD Dictated Date/Time: 03/01/2020 (1654)Technologist: Hailey Phan Transcribed Date/Time: 03/01/2020 (1654) By: [email or web address] Orig Print D/T: S: 03/01/2020 (1657) [facility] NAME: JOSÉBRANDEE BUNNY MEDICAL IMAGING DEPARTMENT PHYS: Luis Mora MD [address] [place] [address] BLVD : 1965 AGE: 54 SEX: F [place], [place] [address] LOC: SHADI PHONE #: [phone] EXAM DATE: 03/01/2020 STATUS: PRE SD FAX #: [phone] RAD NO: DC Dt: PAGE 1 Si gned ReportCOMPREHENSIVE METABOLIC [id number] 16:39:00 Test Item Value Reference Range Interpretation [...] code = LIPINDEX) MG Index/DL COMPREHENSIVE METABOLIC [id number] 16:34:00 Test Item Value Reference Range Interpretation [...] MG 1 NORMAL = LIPINDEX) Index/DL HGB [id number] 16:22:00 Test Item Value Reference Range Interpretation Comments RED BLOOD CELL (test code = RBC) 4.61 M/mm3 3.8-5.5 N HEMOGLOBIN (test code = HGB) 13.6 G/DL 10.6-15.8 N HEMATOCRIT (test code = HCT) 42.7 % 31.8-47.4 N MEAN CELL VOLUME (test code = MCV) 92.6 fL 80.1-101.1 N
[2021-12-22] MEDS ORDERED: IPRATROPIUM BROM 0.5MG/2.5ML ONE (16:25)
[2021-12-22] MEDS ORDERED: FLUCONAZOLE 100 MG TAB ONE (16:25)
[2021-12-22] MEDS ORDERED: ALBUTEROL 2.5 MG/3 ML NEB SOL ONE (16:25)
[2021-12-22 17:04] LABS: Urine Blood Trace-intact (Negative); Urine Glucose 2+ (Negative); Urine Protein Negative (Negative); Urine Specific Gravity 1.015 (1.005-1.030)
--- NOTE | 2021-12-22 17:15 | RAD REPORT ---
EXAM DESCRIPTION: Lauren Single View12/22/2021 4:42 pm CLINICAL HISTORY: Cough COMPARISON: 2019 FINDINGS: The lungs appear clear of acute infiltrate. The heart is normal size IMPRESSION: No acute abnormalities displayed
[2021-12-22] MEDS ORDERED: SMZ./TMP. 800/160 MG TABLET ONE (18:00)
--- NOTE | 2021-12-22 18:03 | ER ---
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 Coronavirus screen: At this time, the client does not indicate any symptoms associated with coronavirus-19. Ebola Screen: No symptoms or risks identified at this time. Initial Sepsis Screen: Does the patient meet any 2 criteria? No. Patient's initial sepsis screen is negative. Does the patient have a suspected source of infection? No. Patient's initial sepsis screen is negative. Risk Assessment: Do you want to hurt yourself or someone else? Patient reports no desire to harm self or others. Onset of symptoms was December 22, 2021. 16:03 Method Of Arrival: Ambulatory hb 16:03 Acuity: ONELIA 4 hb Historical: - Allergies: 16:05 No Known Allergies; hb - Immunization history:: Adult Immunizations up to date. - Social history:: Smoking status: Patient denies any tobacco usage or history of. Screenin:05 Abuse screen: Denies threats or abuse. Denies injuries from another. Nutritional hb screening: No deficits noted. Tuberculosis screening: No symptoms or risk factors identified. Fall Risk None identified. Assessment: 18:04 Reassessment: Patient appears in no apparent distress at this time. Patient and/or hb family updated on plan of care and expected duration. Pain level reassessed. Patient is alert, oriented x 3, equal unlabored respirations, skin warm/dry/pink. Patient states feeling better. Patient states symptoms have improved. Vital Signs: 16:03 BP 158 / 98; Pulse 82; Resp 16; Temp 98.1; Pulse Ox 100% on R/A; Weight 104.33 kg; hb Height 5 ft. 4 in. (162.56 cm); Pain 9/10; 16:03 Body Mass Index 39.48 (104.33 kg, 162.56 cm) hb ED Course: 15:33 Patient arrived in ED. as 15:34 Jessa Ruelas MD is Private Physician. as 16:05 Triage completed. hb 16:05 Arm band placed on. hb 16:13 Lala Wan FNP-C is [facility] kb 16:13 Chauncey Howell MD is Attending Physician. kb 16:21 Haydee Whatley, RN is Primary Nurse. kr3 16:45 Chest Single View XRAY In Process Unspecified. EDMS 18:05 Patient has correct armband on for positive identification. hb 18:05 No provider procedures requiring assistance completed. Patient did not have IV access hb during this emergency room visit. Administered Medications: 16:31 Drug: Albuterol 2.5 mg Route: Inhalation; kr3 16:31 Drug: AtroVENT (ipratropium) Aerosol 0.5 mg Route: Inhalation; kr3 16:31 Drug: DiFLUcan (fluconazole) 150 mg Route: PO; kr3 18:04 Drug: Bactrim (trimethoprim-sulfamethoxazole) (160 mg-800 mg (DS) 1 tablet Route: PO; hb 18:04 Follow up: Response: Medication administered at discharge. hb Medication: 18:06 VIS not applicable for this client. hb Point of Care Testing: Blood Glucose: 16:45 Blood Glucose: 203 mg/dL; hb Ranges: Outcome: 18:03 Discharge ordered by MD. kb 18:05 Discharged to home ambulatory. hb 18:05 Condition: stable 18:05 Discharge instructions given to patient, Instructed on discharge instructions, follow up and referral plans. medication usage, Demonstrated understanding of instructions, follow-up care, medications, Prescriptions given X 2. 18:14 Patient left the ED. hb Signatures: Dispatcher [employer] EDWY Lala Wan FNP-C FNP-Ckb Martinez, Amelia as Baxter, Heather RN RN Haydee Whatley, RN RN kr3 Corrections: (The following items were deleted from the chart) 18:06 18:05 Discharge instructions given to patient, Instructed on discharge instructions, hb follow up and referral plans. medication usage, Demonstrated understanding of instructions, follow-up care, medications, Prescriptions given X 1, hb
--- NOTE | 2021-12-22 18:03 | EDPHYS ---
Physician Documentation [facility] Name: Brandee Rajan Age: 56 yrs Sex: Female : 1965 Arrival Date: 12/22/2021 Time: 15:33 Bed 9 Private MD: Jessa Ruelas ED Physician Chauncey Howell HPI: 12/23 00:13 This 56 yrs old Female presents to ER via Ambulatory with complaints of Finger Problem- kb swelling, Cough, Vaginal Problem. 00:13 The patient presents with an abscess of the dorsal aspect of distal phalanx of right kb middle finger. Description: draining, erythematous, swollen, warm. Onset: The symptoms/episode began/occurred 1 week(s) ago. Possible cause(s): unknown. Associated signs and symptoms: Pertinent positives: drainage, erythema, swelling. Modifying factors: the symptoms are alleviated by nothing, the symptoms are aggravated by nothing. Severity of symptoms: At their worst the symptoms were moderate, in the emergency department the symptoms are unchanged. The patient has not experienced similar symptoms in the past. The patient has not recently seen a physician. Patient states she had a hangnail to the right middle finger with erythema and swelling. States she pulled a hangnail off and had a lot of drainage afterwards. States it is still swollen, red and painful so she came to get that evaluated. States while she is here she wanted to get a few other things evaluated as well. Reports red lump in right axilla, yeast infection, cough that she would like to get treated while here.. Historical: - Allergies: 12/22 16:05 No Known Allergies; hb - Immunization history:: Adult Immunizations up to date. - Social history:: Smoking status: Patient denies any tobacco usage or history of. ROS: 12/23 00:11 Constitutional: Negative for fever, chills, and weight loss. kb Respiratory: Positive for cough, Negative for dyspnea on exertion, hemoptysis, orthopnea, pleurisy, shortness of breath, sputum production, wheezing. : Positive for vaginal discharge, vaginal itching. Skin: Positive for abscess, of the dorsal aspect of distal phalanx of right middle finger and right axilla. All other systems are negative. Exam: 00:11 Constitutional: This is a well developed, well nourished patient who is awake, alert, kb and in no acute distress. Head/Face: Normocephalic, atraumatic. ENT: Moist Mucous membranes Cardiovascular: Regular rate and rhythm with a normal S1 and S2. No gallops, murmurs, or rubs. No pulse deficits. MS/ Extremity: Pulses equal, no cyanosis. Neurovascular intact. Full, normal range of motion. Neuro: Awake and alert, GCS 15, oriented to person, place, time, and situation. Moves all extremities. Normal gait. Psych: Awake, alert, with orientation to person, place and time. Behavior, mood, and affect are within normal limits. 00:11 Respiratory: the patient does not display signs of respiratory distress, Respirations: normal, Breath sounds: wheezin:11 Skin: abscess, that is small, of the dorsal aspect of distal phalanx of right middle finger and right axilla, with induration. Vital Signs: 12/22 16:03 BP 158 / 98; Pulse 82; Resp 16; Temp 98.1; Pulse Ox 100% on R/A; Weight 104.33 kg; hb Height 5 ft. 4 in. (162.56 cm); Pain 9/10; 16:03 Body Mass Index 39.48 (104.33 kg, 162.56 cm) hb MDM: 16:13 Patient medically screened. kb 12/23 00:11 Data reviewed: vital signs, nurses notes. Data interpreted: Pulse oximetry: on room air kb is 100 %. Interpretation: normal. Counseling: I had a detailed discussion with the patient and/or guardian regarding: the historical points, exam findings, and any diagnostic results supporting the discharge/admit diagnosis, lab results, the need for outpatient follow up, a family practitioner, to return to the emergency department if symptoms worsen or persist or if there are any questions or concerns that arise at home. 12/22 16:50 Order name: Glucose, Ancillary Testing; Complete Time: 16:51 EDMS 12/22 17:04 Order name: Urine Dipstick-Ancillary; Complete Time: 17:05 EDMS 12/22 16:23 Order name: Chest Single View XRAY; Complete Time: 17:19 kb 12/22 16:15 Order name: Urine Dipstick-Ancillary (obtain specimen); Complete Time: 17:19 kb 12/22 16:23 Order name: Blood Glucose Level; Complete Time: 16:39 kb Administered Medications: 12/22 16:31 Drug: Albuterol 2.5 mg Route: Inhalation; kr3 16:31 Drug: AtroVENT (ipratropium) Aerosol 0.5 mg Route: Inhalation; kr3 16:31 Drug: DiFLUcan (fluconazole) 150 mg Route: PO; kr3 18:04 Drug: Bactrim (trimethoprim-sulfamethoxazole) (160 mg-800 mg (DS) 1 tablet Route: PO; hb 18:04 Follow up: Response: Medication administered at discharge. hb Point of Care Testing: Blood Glucose: 16:45 Blood Glucose: 203 mg/dL; hb Ranges: Critical Glucose Levels:Adult <50 mg/dl or >400 mg/dl <40 mg/dl or >180 mg/dl Disposition Summary: 12/22/21 18:03 Discharge Ordered Location: Home kb Condition: Stable kb Diagnosis - Cutaneous abscess of right hand - paronychia kb - Cutaneous abscess of right axilla kb - Candidiasis of vulva and vagina kb - Acute bronchitis, unspecified kb Followup: kb - With: Emergency Department - When: As needed - Reason: Worsening of condition Followup: kb - With: Private Physician - When: 2 - 3 days - Reason: Recheck today's complaints, Continuance of care, Re-evaluation by your physician Discharge Instructions: - Discharge Summary Sheet kb - Vaginal Yeast Infection, Adult kb - Skin Abscess, [id number] kb - Acute Bronchitis, Adult, [id number] kb Forms: - Medication Reconciliation Form kb - Thank You Letter kb - Antibiotic Education kb - Prescription Opioid Use kb Prescriptions: - Tessalon Perles 100 mg Oral Capsule - take 1 capsule by ORAL route every 8 hours As needed; 15 capsule; Refills: 0, kb Product Selection Permitted - Bactrim DS 800-160 mg Oral Tablet - take 1 tablet by ORAL route every 12 hours for 10 days; 20 tablet; Refills: 0, kb Product Selection Permitted Signatures: Dispatcher [employer] Lala Hazel, ALEJANDRO-J Carlos ALLEN-Tamie Martinez, RN RN Haydee Whatley RN RN kr3
[2021-12-22 18:19] VITALS: BP 158/98; TEMP 98.1; O2SAT 100
== END 2021-12-22 18:14 | disposition home or self-care (01) ==
LOC: ER 15:31
DX: L02.511 Cutaneous abscess of right hand (principal); L03.011 Cellulitis of right finger; L02.411 Cutaneous abscess of right axilla; B37.31 Acute candidiasis of vulva and vagina; J20.9 Acute bronchitis, unspecified
CPT/HCPCS: 71045; 81003; 82947; 99284

== ENCOUNTER 2022-01-25 17:24 | Emergency (ER) | payer OTHER ==
--- OUTSIDE RECORDS SUMMARY | 2022-01-25 17:38 | XMS REPORT | Continuity of Care Document ---
:1965 [facility] t Address [facility] [place] [place] [address] Care Team Providers Name Role Phone Jessa Ruelas Primary Care Physician Jessa Ruelas L Attending Clinician Unavailable Elders, Luis Mcdonald Attending Clinician Unavailable Teresa Espana MD Attending Clinician Doctor Unassigned, Hermann Attending Clinician Unavailable TERESA ESPANA Attending Clinician Unavailable Physician, No Primary or Family Admitting Clinician Unavaila ble TERESA ESPANA Admitting Clinician Unavailable Payers Payer Name Policy Type Policy Number Effective Date Expiration Date Nidia marie [employer] MEDICARE 53 [id number] 2021 Common Sp valorie 00:00:00 - [facility] MEDICARE C1 [id number] 2019 Common Sp valorie 00:00:00 - [facility] MEDICARE C1 [id number] 2019 Common Sp valorie 00:00:00 - [facility] [employer] MEDICARE C1 [id number] 2019 Common Sp valorie 00:00:00 - [facility] MEDICARE C1 [id number] 2019 Common Sp valorie 00:00:00 [facility] MEDICARE C1 [id number] 2019 Common Sp valorie 00:00:00 - [facility] HUMANA MEDICARE C1 [id number] 2019 Common Sp valorie 00:00:00 [facility] MEDICARE C1 [id number] 2019 Common Sp valorie 00:00:00 - [facility] MEDICARE C1 [id number] 2019 Common Sp valorie 00:00:00 [facility] Problems Condition Condition Condition Status Onset Resolution Last Treating Co mments Source Name Details Category Date Date Treatment Clinician Date Adrenal Adrenal Disease Active Univers mass 1 cm mass 1 cm 3-20 ity of [place] 4 [place] 00 Med[place] Branch [id number] Type 2 [place] [id number] diabetes Spirit mellitus - [facility]I with [facility] Sinus Sinus Problem Common problem problem Spirit - [facility] [id number] 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 [facility] neuropathy Medica l , Center unspecifie d [id number] Mixed Problem Common hyperlipid Spirit emia - [facility] [id number] Other Problem Common chronic Spirit pain - CHI [facility] [id number] Depression Problem Co mmon with Spirit anxiety - CHI [facility] Gallstones Gallstones Problem C ommon Spirit - CHI [facility] [id number] Type 2 Problem Common diabetes Spirit mellitus - CHI without complicati [facility] [id number] Mixed Problem Common stress and Spirit urge - CHI urinary [facility] [id number] long-term Problem Com mon (current) Spirit use of - CHI insulin [facility] [id number] Cigarette Problem Comm on nicotine Spirit dependence - CHI with nicotine-i [facility] nduced Medical disorder Center [id number] Chronic Problem Common obstructiv Spirit e - [facility]I pulmonary [facility] unspecifie Medica l d COPD Center type Gastroesop Gastroesop Problem C [facility] hageal hageal Spirit reflux reflux - [facility], [facility] not Center specified Anxiety Anxiety Problem Common [facility] Allergic Allergic Problem Commo n rhinitis rhinitis [facility] Diabetes Diabetes Problem Commo n mellitus Spirit without - CHI complicati [facility] [id number] 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 - [facility] [id number] Essential Problem Comm on hypertensi Spirit on - [facility] [id number] Acute Problem Common bronchitis Spirit , - CHI unspecifie [facility] [id number] Lumbar Problem Common degenerati Spirit ve disc - CHI disease [facility] [id number] Lesion of Problem Co mmon plantar Spirit nerve, - CHI left lower limb [facility] [id number] Pain in Problem Comm on left foot [facility] [id number] Posterior Problem Co mmon tibial Spirit tendinitis - CHI , left leg [facility] Seizure Seizures Problem Common [facility] Memory Memory Problem Common problem problem [facility] Acquired Acquired Problem Commo n hypothyroi hypothyroi Sp valorie dism dism [facility] [id number] Suspected Problem Com mon ingested Spirit foreign - CHI body not [facility] after Medical observatio Center n [id number] Chronic Problem Common fatigue [facility] [id number] Leukocytos Problem Co mmon is, Spirit unspecifie - CHI d type [facility] 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 [facility] affected affected Medica 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 without y without macular macular edema, edema, without without long-term long-term current current use of use of insulin insulin [id number] Primary Problem Comm on osteoarthr Spirit itis of - CHI right knee [facility] [id number] Postmenopa Problem Com mon usal Spirit bleeding - CHI [facility] Depression Depression Problem C ommon Spirit - [facility] Allergies, Adverse Reactions, Alerts Allergy Allergy Status Severity Reaction(s) Onset Inactive Treating Comm ents Source Name Type Date Date Clinician samantha DA Active [facility] d 1- [place] 00:00: [facility] ragweed DA Active [facility] pollen 04-06 [place] 00:00: [facility] cedarwoo DA Active [place] S[facility]US [facility] d PROBLEMS 04-06 [place] 00:00: Region [facility] ragweed DA Active [place] [facility] pollen PROBLEMS 04-06 [place] 00:00: Region [facility] No Known DA Active U 2019-03 [facility] Allergie 05-02 [place] 00:00: [facility] No Known DA Active U 2019-03 [facility] Allergie 05-02 [place] 00:00: [facility] Social History Social Habit Start Date Stop Date Quantity Comments Source History of Current Smoker Common Spi rit - Tobacco Use [facility] Sex Assigned At Common Sp valorie - [facility] Exposure to 2021-10-20 2021-10-30 Not sure [facility] SARS-CoV-2 00:00:00 11:49:00 [place] [facility] (event) Branch Smoking Status Start Date Stop Date Source Tobacco smoking consumption Univ [facility] [place] Medical unknown Branch Current Smoker 2021-11-15 00:00:00 Common Spiri t - [facility] nter Medications Ordered Filled Start Stop Current Ordering Indication Dosage Frequency Signature Comments Components Source Medication Medication Date Date Medication? Clinician (SIG) Name Name amLODIPine amLODIPine No 1{table amLODIPine Besylate 5 Besylate 5 9-08 t} Besylate 5 MG MG 00:00: MG 00 amLODIPine amLODIPine No 1{table amLODIPine Besylate 5 Besylate 5 9-08 t} Besylate 5 MG MG 00:00: MG 00 amLODIPine amLODIPine No 1{table amLODIPine Besylate 5 Besylate 5 9-08 t} Besylate 5 MG MG 00:00: MG 00 amLODIPine amLODIPine No 1{table amLODIPine Besylate 5 Besylate 5 9-08 t} Besylate 5 MG MG 00:00: MG [...] No 68U inject 68 Univ ers Glargine 10-30- Units ity of ([place] 12:32[place] 16 :00 skin Medical U-100 daily. Per Branch INSULIN) sliding 100 unit/mL scale (3 mL) injection Insulin 2021- No 68U inject 68 Univ ers Glargine 10-30- Units ity of ([place] 12:32: [place] :00 skin Medical U-100 daily. Per Branch INSULIN) sliding 100 unit/mL scale (3 mL) injection insulin Yes [id number] 80U inject 80 Univers glargine 8-23 Units ity of U-300 conc [place] (TOUJEO MAX 00 skin Medical U-300 daily. [place] [facility] E11.65 300 unit/mL (3 mL) InPn dulaglutide Yes [id number] .75mg inject 1 Univers (TRULICITY) 8-23 Pen under ity of 0.75 mg/0.5 00:[place]: [place] mL PnIj 00 weekly. Medical Branch metformin Yes [id number] 750mg Take 1 Univers ER 750 mg 8-23 tablet by ity o f 24 hr 00:00: mouth in [place] tablet 00 the Medical morning Branch and 1 tablet in the evening. Take with meals. empaglifloz Yes [id number] 25mg Take 1 Univers in 8-23 tablet by ity of (JARDIANCE) 00:00: mouth [place] 25 mg Tab 00 every Medical morning. Branch insulin Yes [id number] 80U inject 80 Univers glargine 8-23 Units ity of U-300 conc 00:[place]: [place] (TOUJEO MAX 00 skin Medical U-300 daily. [facility]) E11.65 300 unit/mL (3 mL) InPn dulaglutide 2021-0 Yes [id number] .75mg inject 1 Univers (TRULICITY) 8-23 Pen under ity of 0.75 mg/0.5 00:00: [place] mL PnIj 00 weekly. Medical Branch metformin 2021-0 Yes [id number] 750mg Take 1 Univers ER 750 mg 8-23 tablet by ity o f 24 hr 00:00: mouth in [place] tablet 00 the Medical morning Branch and 1 tablet in the evening. Take with meals. empaglifloz 2021-0 Yes [id number] 25mg Take 1 Univers in 8-23 tablet by ity of (JARDIANCE) 00:00: mouth [place] 25 mg Tab 00 every Medical morning. Branch insulin 2021-0 Yes [id number] 80U inject 80 Univers glargine 8-23 Units ity of U-300 conc 00:00: [place] (TOUJEO MAX 00 skin Medical U-300 daily. [facility]) E11.65 300 unit/mL (3 mL) InPn dulaglutide 2021-0 Yes [id number] .75mg inject 1 Univers (TRULICITY) 8-23 Pen under ity of 0.75 mg/0.5 00:00: the [place] mL PnIj 00 weekly. Medical Branch metformin 2021-0 Yes [id number] 750mg Take 1 Univers ER 750 mg 8-23 tablet by ity o f 24 hr 00:00: mouth in [place] tablet 00 the Medical morning Branch and 1 tablet in the evening. Take with meals. empaglifloz 2-0 Yes [id number] 25mg Take 1 Univers in 8-23 tablet by ity of (JARDIANCE) 00:00: mouth [place] 25 mg Tab 00 every Medical morning. Branch insulin 2021-0 Yes [id number] 80U inject 80 Univers glargine 8-23 Units ity of U-300 conc 00:00: [place] (TOUJEO MAX 00 skin Medical U-300 daily. [facility]) E11.65 300 unit/mL (3 mL) InPn dulaglutide 2021-0 Yes [id number] .75mg inject 1 Univers (TRULICITY) 8-23 Pen under ity of 0.75 mg/0.5 00:00: the [place] mL PnIj 00 weekly. Medical Branch metformin 2021-0 Yes [id number] 750mg Take 1 Univers ER 750 mg 8-23 tablet by ity o f 24 hr 00:00: mouth in [place] tablet 00 the Medical morning Branch and 1 tablet in the evening. Take with meals. empaglifloz 2021-0 Yes [id number] 25mg Take 1 Univers in 8-23 tablet by ity of (JARDIANCE) 00:00: mouth [place] 25 mg Tab 00 every Medical morning. Branch ACCU-CHEK 2021-0 Yes TEST 2 Univer s GUIDE TEST 8-13 TIMES ity of STRIPS 00:00: DAILY [place] strip 00 Medical Branch ACCU-CHEK 2021-0 Yes TEST 2 Univer s GUIDE TEST 8-13 TIMES ity of STRIPS 00:00: DAILY [place] strip 00 Medical Branch ACCU-CHEK 2021-0 Yes TEST 2 Univer s GUIDE TEST 8-13 TIMES ity of STRIPS 00:00: DAILY [place] strip 00 Medical Branch ACCU-CHEK 2021-0 Yes TEST 2 Univer s GUIDE TEST 8-13 TIMES ity of STRIPS 00:00: DAILY [place] strip 00 Medical Branch gabapentin 2021-0 Yes Univers 300 mg 8-12 ity of capsule 00:00: [place] 00 Medical Branch gabapentin 2021-0 Yes Univers 300 mg 8-12 ity of capsule 00:00: [place] Medical Branch gabapentin 2021-0 Yes Univers 300 mg 8-12 ity of capsule 00:00: [place] Medical Branch gabapentin 2-0 Yes Univers 300 mg 8-12 ity of capsule 00:00: [place] 00 Medical Branch Nystatin Nystatin 2021-0 2022- No 1{appli BID Nystatin 206320 655294 10-18 cation_ 526361 UNIT/GM UNIT/GM 00:00: 00:00 to_affe UNIT/GM 00 :00 cted_ar ea} Mupirocin 2 Mupirocin 2 2021-0 2022- No TID Mupirocin % % 10-18 2 % 00:00: 00:00 00 :00 Nystatin Nystatin 2022-0 2022- No 1{appli BID Nystatin 265573 059520 10-18 cation_ 695846 UNIT/GM UNIT/GM 00:00: 00:00 to_affe UNIT/GM 00 :00 cted_ar ea} Mupirocin 2 Mupirocin 2 2021- No TID Mupirocin % % 10-18 2 % 00:00: 00:00 00 :00 Nystatin Nystatin 202- No 1{appli BID Nystatin 916544 014035 10-18 cation_ 906751 UNIT/GM UNIT/GM 00:00: 00:00 to_affe UNIT/GM 00 :00 cted_ar ea} Mupirocin 2 Mupirocin 2 2021- No TID Mupirocin % % 10-18 2 % 00:00: 00:00 00 :00 JANUMET 2021-0 202- No Univers 50-1,000 mg 09-29 ity of per tablet 00:00: 00:00 [place] 00 :00 Medical Branch JANUMET 0 2021- No Univers 50-1,000 mg 09-29 ity of per tablet 00:00: 00:00 [place] 00 :00 Medical Branch losartan 50 2021-0 Yes Univer s mg tablet - ity of 00:00: [place] 00 Medical Branch losartan 50 2021-0 Yes Univer s mg tablet - ity of 00:00: [place] 00 Medical Branch losartan 50 2021-0 Yes Univer s mg tablet - ity of 00:00: [place] 00 Medical Branch losartan 50 2021-0 Yes Univer s mg tablet -08 ity of 00:00: [place] 00 Medical Branch Losartan Losartan 0 No 1{table QD Losartan [...] MG 00:00: 50 MG 00 Pantoprazol Pantoprazol No 1{table QD Pantoprazo e Sodium 40 e Sodium 40 607 t} le Sodium MG MG 00:00: 40 MG 00 Pantoprazol Pantoprazol No 1{table QD Pantoprazo e Sodium 40 e Sodium 40 607 t} le Sodium MG MG 00:00: 40 MG 00 Pantoprazol Pantoprazol No 1{table QD Pantoprazo e Sodium 40 e Sodium 40 607 t} le Sodium MG MG 00:00: 40 [...] by mouth ity of tablet 11:57: daily. [address] benzonatate 2022-0 Yes 100{cap Take 100 Univers 100 mg [...] mouth ity o f tablet 11:57: daily. [place] 13 Medical Branch levothyroxi 0 Yes 75ug Take 75 Uni vers ne 75 mcg 2-22 mcg by ity of tablet 11:57: mouth [place] 13 every Medical morning. Branch busPIRone 0 Yes 15mg Take 15 mg Un andre 15 mg 2-22 by mouth ity of tablet 11:57: daily. [place] [address] Medical Branch cetirizine 0 Yes 10mg Take 10 mg U nivers 10 mg 2-22 by mouth ity of tablet 11:57: daily. [place] [address] Medical Branch pravastatin 0 Yes 20mg Take 20 mg Univers 20 mg 2-22 by mouth ity of tablet 11:57: daily. [place] [address] Medical Branch benzonatate 0 Yes 100{cap Take [...] mouth ity o f tablet 11:57: daily. [place] 13 Medical Branch levothyroxi 0 Yes 75ug Take 75 Uni vers ne 75 mcg 2-22 mcg by ity of tablet 11:57: mouth [place] 13 every Medical morning. Branch busPIRone 0 Yes 15mg Take 15 mg Un andre 15 mg 2-22 by mouth ity of tablet 11:57: daily. [place] [address] Medical Branch cetirizine 0 Yes 10mg Take 10 mg U nivers 10 mg 2-22 by mouth ity of tablet 11:57: daily. [address] Branch pravastatin 0 Yes 20mg Take 20 mg Univers 20 mg 2-22 by mouth ity of tablet 11:57: daily. [place] [address] Medical [place] benzonatate 0 Yes 100{cap Take 100 Univers 100 mg 2-22 elizabeth} capsules ity of capsule 11:57: by mouth [place] 13 daily. Medical Branch vortioxetin 0 Yes 20mg Take 20 mg Univers e 2-22 by mouth ity of ([place] 11[place]. [place] 20 mg Tab Medical Branch ursodioL 0 Yes 250mg Take 250 Univ ers 250 mg 2-22 mg by ity of tablet 11:57: mouth [place] 13 daily. Medical Branch pantoprazol 0 Yes 40mg Take 40 mg Univers e 40 mg EC 2-22 by mouth ity o f tablet 11:57: daily. [place] [address] Medical Branch levothyroxi 0 Yes 75ug Take 75 Uni vers ne 75 mcg 2-22 mcg by ity of tablet 11:57: mouth [place] 13 every Medical morning. Branch busPIRone Yes 15mg Take 15 mg Un andre 15 mg 2-22 by mouth ity of tablet 11:57: daily. [address] cetirizine 0 Yes 10mg Take 10 mg U nivers 10 mg 2-22 by mouth ity of tablet 11:57: daily. [address] pravastatin 0 Yes 20mg Take 20 mg Univers 20 mg 2-22 by mouth ity of tablet 11:57: daily. [address] benzonatate 0 Yes 100{cap Take 100 [...] mg by ity of tablet 11:57: mouth [place] [address] daily. Medical Branch pantoprazol Yes 40mg Take 40 mg Univers e 40 mg EC 2-22 by mouth ity o f tablet 11:57: daily. [place] [address] Medical Branch levothyroxi 0 Yes 75ug Take 75 Uni vers ne 75 mcg 2-22 mcg by ity of tablet 11:57: mouth [place] [address] every Medical morning. Branch busPIRone 0 Yes 15mg Take 15 mg Un andre 15 mg 2-22 by mouth ity of tablet 11:57: daily. [place] [address] Medical Branch cetirizine 0 Yes 10mg Take 10 mg U nivers 10 mg 2-22 by mouth ity of tablet 11:57: daily. [place] [address] Medical Branch Varenicline Varenicline 2021- No QD Vareniclin Tartrate [...] MG 00:00: 20 MG 00 Benzonatate Benzonatate 2020-03- No 1{capsu TID Benzonatat [...] 00:00: 00:00 eeded} 00 :00 Azithromyci Azithromyci 2020-03- No QD Azithromyc n 250 MG n 250 MG 0-15 10-20 in 250 MG 00:00: 00:00 00 :00 Azithromyci Azithromyci 2020-03- No QD Azithromyc n 250 MG n 250 MG 0-15 10-20 in 250 MG 00:00: 00:00 00 :00 Azithromyci Azithromyci 2020-03- No QD Azithromyc n 250 MG n 250 MG 0-15 10-20 in 250 MG 00:00: 00:00 00 :00 Azithromyci Azithromyci 2020-03- No QD Azithromyc n 250 MG n 250 MG 0-15 10-20 in 250 MG 00:00: 00:00 00 :00 FreeStyle FreeStyle 1-0 No FreeStyle Servando 14 Servando 14 1-29 Servando 14 Day Sensor Day Sensor 00:00: Day Sensor - - 00 - FreeStyle FreeStyle 1-0 No QD FreeStyle Servando 14 Servando 14 1-29 Servando 14 Day [place] Day [place] 00:00: Day [place] - - 00 - FreeStyle FreeStyle 1-0 No FreeStyle Servando 14 Servando 14 1-29 Servando 14 Day Sensor Day Sensor 00:00: Day Sensor - - 00 - FreeStyle FreeStyle 1-0 No QD FreeStyle Serv[place] 14 Servando 14 1-29 Servando 14 Day [place] Day [place] 00:00: Day [place] - - 00 - FreeStyle FreeStyle 1-0 No FreeStyle Servando 14 Servando 14 1-29 Servando 14 Day Sensor Day Sensor 00:00: Day Sensor - - 00 - FreeStyle FreeStyle 1-0 No QD FreeStyle Serv[place] 14 Servando 14 1-29 Servando 14 Day [place] Day [place] 00:00: Day [place] - - 00 - FreeStyle FreeStyle 1-0 No FreeStyle Servando 14 Servando 14 1-29 Servando 14 Day Sensor Day Sensor 00:00: Day Sensor - - 00 - FreeStyle FreeStyle 1-0 No QD FreeStyle Serv[place] 14 Servando 14 1-29 Servando 14 Day [place] Day [place] 00:00: Day [place] - - 00 - FreeStyle FreeStyle 1-0 No FreeStyle Servando 14 Servando 14 1-29 Servando 14 Day Sensor Day Sensor 00:00: Day Sensor - - 00 - FreeStyle FreeStyle 1-0 No QD FreeStyle [place] 14 Servando 14 1-29 Servando 14 Day [place] Day [place] 00:00: Day [place] - - 00 - FreeStyle FreeStyle 2021-0 No QD FreeStyle Servando 14 Servando 14 1-29 Servando 14 Day [place] Day [place] 00:00: Day [place] - - 00 - FreeStyle FreeStyle 2021-0 No FreeStyle Servando 14 Servando 14 1-29 Servando 14 Day Sensor Day Sensor 00:00: Day Sensor - - 00 - FreeStyle FreeStyle 1-0 No QD FreeStyle Serv[place] 14 Servando 14 1-29 Servando 14 Day [place] Day [place] 00:00: Day [place] - - 00 - FreeStyle FreeStyle 2021-0 No FreeStyle Servando 14 Servando 14 1-29 Servando 14 Day Sensor Day Sensor 00:00: Day Sensor - - 00 - FreeStyle FreeStyle 1-0 No QD FreeStyle Serv[place] 14 Servando 14 1-29 Servando 14 Day [place] Day [place] 00:00: Day [place] - - 00 - FreeStyle FreeStyle 1-0 [...] 14 Servando 14 1-29 Servando 14 Day [place] Day [place] 00:00: Day [place] - - 00 - FreeStyle FreeStyle 2021-0 No FreeStyle Serv[place] 14 Servando 14 1-29 Servando 14 Day Sensor Day Sensor 00:00: Day Sensor - - 00 - FreeStyle FreeStyle 2021-0 No QD FreeStyle Serv[place] 14 Servando 14 1-29 Servando 14 Day [place] Day [place] 00:00: Day [place] - - 00 - FreeStyle FreeStyle 2021-0 No FreeStyle Servando 14 Servando 14 1-29 Servando 14 Day Sensor Day Sensor 00:00: Day Sensor - - 00 - FreeStyle FreeStyle 2020-0 No QD FreeStyle Serv[place] 14 Servando 14 29 Servando 14 Day [place] Day [place] 00:00: Day [place] - - 00 - Flonase 50 Flonase 50 2019-03 No 2{spray [...] Spirit 00:00: 00:00 - CHI 00 :00 [facility] Bactrim DS Bactrim DS 2020-0 2020- No Na [place] 1 tablet Common 11-22 Spirit 00:00: 00:00 - CHI 00 :00 [facility] Ursodiol Ursodiol 2020-0 Yes Na Ruel[place] 1 tablet Common 11-16 with food Spirit 00:00: - CHI 00 [facility] Triamcinolo Triamcinolo 2020-0 Yes Na [place]uel[place] 1 Common ne ne 2-14 applicatio Spirit Acetonide Acetonide 00:00: n to - C HI 00 affected [facility] Triamcinolo Triamcinolo 2020-0 No 1{appli BID Triamcinol [...] Spirit Tube/Plugs Tube/Plugs 00:00: - CHI 00 [facility] Nebulizer Nebulizer No Nebulizer Air Air 2-03 Air Tube/Plugs Tube/Plugs 00:00: Tube/Plugs - - 00 - Nebulizer Nebulizer No Nebulizer Air Air 2-03 Air Tube/Plugs [...] Tube/Plugs 00:00: Tube/Plugs - - 00 - Myrbetriq Myrbetriq No 1{table QD Myrbetriq [...] Na [place]uel[place] 1 capsule Common with food [facility] Pantoprazol Pantoprazol Yes Na [place]uel[place] TAKE 1 Common e Sodium e Sodium TABLET BY Sp valorie MOUTH - CHI EVERY DAY [facility] Albuterol Albuterol Yes Na [place] 3 ml as Common Sulfate Sulfate needed Spirit - [facility] Levothyroxi Levothyroxi Yes [place] TAKE 1 Common ne Sodium ne Sodium TABLET BY Spirit MOUTH - CHI EVERY DAY St IN THE MORNING ON Medical AN EMPTY Center STOMACH Janumet Janumet Yes Na [place] 1 tablet Co mmon with meals [facility] BusPIRone BusPIRone Yes Na [place] 1 tablet Common HCl HCl [facility] Ursodiol Ursodiol Yes Na [place] as Comm on directed [facility] Gabapentin Gabapentin Yes [place] 1 capsule Common [facility] Aspir-Low Aspir-Low Yes Na [place] 1 tablet Common [facility] Oxybutynin Oxybutynin Yes Na [place] 1 tablet Common Chloride Chloride [facility] Trintellix Trintellix Yes Na Ruelas 1 tablet [facility] Trintellix Trintellix No Trintellix 20 MG 20 [...] 50 MCG/ACT 50 MCG/ACT Propionate 50 MCG/ACT Pravastatin Pravastatin No Pravastati Sodium 20 Sodium 20 n Sodium MG MG 20 MG Gabapentin Gabapentin No Gabapentin 300 MG 300 MG 300 MG Janumet Janumet No Janumet 50-1000 MG 50-1000 MG 50-1000 MG Losartan Losartan No 1{table QD Losartan Potassium Potassium t} Potassium 100 MG 100 MG 100 MG metFORMIN metFORMIN No 1{table BID metFORMIN HCl ER 750 HCl ER 750 t} HCl ER 750 MG MG MG Pantoprazol Pantoprazol No 1{table QD Pantoprazo e Sodium 40 e Sodium 40 t} le Sodium MG MG 40 MG Multivitami Multivitami No Multivitam n Adult n Adult in Adult Toujeo Toujeo No Toujeo SoloStar SoloStar SoloStar 300 UNIT/ML 300 UNIT/ML 300 UNIT/ML Ursodiol Ursodiol No Ursodiol 250 MG 250 MG 250 MG Myrbetriq Myrbetriq No 1{table QD Myrbetriq 25 MG 25 MG t} 25 MG Trintellix Trintellix No Trintellix 20 MG 20 MG 20 MG Varenicline Varenicline No Vareniclin Tartrate 1 Tartrate 1 e Tartrate MG MG 1 MG Benzonatate Benzonatate No 1{capsu TID Benzonatat 100 MG 100 MG le_as_n e 100 MG eeded} Jardiance Jardiance No 1{table QD Jardiance 25 MG 25 MG t} 25 MG Lantus Lantus No Lantus SoloStar SoloStar SoloStar 100 UNIT/ML 100 UNIT/ML 100 UNIT/ML Accu-Chek Accu-Chek No BID Accu-Chek Sarika Plus Sarika Plus Sarika Plus - - - Trulicity Trulicity No Trulicity 0.75mg/0.5m 0.75mg/0.5m 0.75mg/0.5 l l ml Levothyroxi Levothyroxi No Levothyrox ne Sodium ne Sodium ine Sodium 75 MCG 75 MCG 75 MCG Cetirizine Cetirizine No 1{table QD Cetirizine HCl 10 MG HCl 10 MG t} HCl 10 MG Accu-Chek Accu-Chek No Accu-Chek Softclix [...] HCl 15 MG t} HCl 15 MG Immunizations Ordered Immunization Filled Immunization Date Status Commen ts Source Name Name Afluria Afluria 2021-01-01 Completed [facility] 14:46:00 - [facility] Afluria Afluria 2021-01-01 Completed [facility] 14:46:00 [facility] Afluria Afluria 2021-01-01 Completed [facility] 14:46:00 [facility] Afluria Afluria 2021-01-01 Completed [facility] 14:46:00 - [facility] Afluria Afluria 2021-01-01 Completed [facility] 14:46:00 - [facility] Afluria Afluria 2021-01-01 Completed [facility] 14:46:00 [facility] Afluria Afluria 2021-01-01 Completed [facility] 14:46:00 - [facility] Afluria Afluria 2021-01-01 Completed [facility] 14:46:00 - [facility] Afluria Afluria 2021-01-01 Completed [facility] 14:46:00 - [facility] Afluria Afluria 2021-01-01 Completed [facility] 14:46:00 - [facility] Afluria Afluria 2021-01-01 [facility]pleted [facility] 14:46:00 - [facility] Afluria Afluria 2021-01-01 [facility]pleted [facility] 14[facility]46:00 - [facility] Afluria Afluria 2021-01-01 Completed [facility] 14:46:00 - [facility] Afluria Afluria 2021-01-01 Completed [facility] 14:46:00 [facility] Afluria Afluria 2021-01-01 Completed [facility] 14:46:00 [facility] Afluria Afluria 2021-01-01 Completed [facility] 14:46:00 [facility] Afluria Afluria 2021-01-01 Completed [facility] 14:46:00 [facility] Afluria Afluria 2021-01-01 Completed [facility] 14:46:00 [facility] Afluria Afluria 2021-01-01 Completed [facility] 14:46:00 - [facility] Afluria Afluria 2021-01-01 Completed [facility] 14:46:00 - [facility] Afluria Afluria 2021-01-01 Completed [facility] 14:46:00 - [facility] Afluria Afluria 2021-01-01 Completed [facility] 14:46:00 - [facility] Afluria Afluria 2021-01-01 Completed [facility] 14:46:00 - [facility] Afluria Afluria 2021-01-01 Completed [facility] 14:46:00 - [facility] Afluria Afluria 2021-01-01 Completed [facility] 14:46:00 - [facility] Fluzone Fluzone 2019-04-02 Completed [facility] 08:45:00 - [facility] Fluzone Fluzone 2019-04-02 Completed [facility] 08:45:00 - [facility] Fluzone Fluzone 2019-04-02 Completed [facility] 08:45:00 - [facility] Fluzone Fluzone 2019-04-02 Completed [facility] 08:45:00 - [facility] Fluzone Fluzone 2019-04-02 Completed [facility] 08:45:00 - [facility] Fluzone Fluzone 2019-04-02 Completed [facility] 08:45:00 - [facility] Fluzone Fluzone 2019-04-02 Completed [facility] 08:45:00 - [facility] Fluzone Fluzone 2019-04-02 Completed [facility] 08:45:00 - [facility] Fluzone Fluzone 2019-04-02 Completed [facility] 08:45:00 - [facility] Fluzone Fluzone 2019-04-02 Completed [facility] 08:45:00 - [facility] Fluzone Fluzone 2019-04-02 Completed [facility] 08:45:00 - [facility] Fluzone Fluzone 2019-04-02 Completed [facility] 08:45:00 - [facility] Fluzone Fluzone 2019-04-02 Completed [facility] 08:45:00 - [facility] Fluzone Fluzone 2019-04-02 Completed [facility] 08:45:00 - [facility] Fluzone Fluzone 2019-04-02 Completed [facility] 08:45:00 - [facility] Fluzone Fluzone 2019-04-02 Completed [facility] 08:45:00 - [facility] Fluzone Fluzone 2019-04-02 Completed [facility] 08:45:00 - [facility] Fluzone Fluzone 2019-04-02 Completed [facility] 08:45:00 - [facility] Fluzone Fluzone 2019-04-02 Completed [facility] 08:45:00 - [facility] Fluzone Fluzone 2019-04-02 Completed [facility] 08:45:00 - [facility] Fluzone Fluzone 2019-04-02 Completed [facility] 08:45:00 - [facility] Fluzone Fluzone 2019-04-02 Completed [facility] 08:45:00 - [facility] Fluzone Fluzone 2019-04-02 Completed [facility] 08:45:00 - [facility] Fluzone Fluzone 2019-04-02 Completed [facility] 08:45:00 - [facility] Fluzone Fluzone 2019-04-02 Completed [facility] 08:45:00 - [facility] Fluzone Fluzone 2019-04-02 Completed [facility] 08:45:00 - [facility] Fluzone Fluzone 2019-04-02 Completed [facility] 08:45:00 - [facility] Fluzone Fluzone 2019-04-02 Completed [facility] 08:45:00 - [facility] Fluzone Fluzone 2019-04-02 Completed [facility] 08:45:00 - [facility] Fluzone Fluzone 2019-04-02 Completed [facility] 08:45:00 - [facility] Fluzone Fluzone 2019-04-02 Completed [facility] 00:00:00 - [facility] Vital Signs Vital Name Observation Time Observation Value Comments Source height 2021-11-15 15:40:00 64.50 [in_i] [facility] weight 2021-11-15 15:40:00 226.8 [lb_av] [facility] temperature 2021-11-15 15:40:00 97.2 [degF] [facility] bmi 2021-11-15 15:40:00 38.32 kg/m2 [facility] oximetry 2021-11-15 15:40:00 96 % [facility] respiratory rate 2021-11-15 15:40:00 16 /min Comm on [facility] blood pressure 2021-11-15 15:40:00 124 mm[Hg] [facility] systolic [facility] blood pressure 2021-11-15 15:40:00 68 mm[Hg] [facility] diastolic [facility] Systolic blood 2021-10-30 16:52:00 126 mm[Hg] Univer sity of pressure [facility] Diastolic blood 2021-10-30 16:52:00 79 mm[Hg] Unive rsity of pressure [facility] Heart rate 2021-10-30 16:52:00 74 /min [facility] Body weight 2021-10-30 16:52:00 105.597 kg [facility] BMI 2021-10-30 16:52:00 39.96 kg/m2 [facility] Oxygen saturation in 2021-10-30 16:52:00 98 /min [facility] Arterial blood by [facility] Pulse oximetry Branch height 2021-10-18 15:40:00 64.50 [in_i] [facility] weight 2021-10-18 15:40:00 228.8 [lb_av] Common [facility] temperature 2021-10-18 15:40:00 97.4 [degF] [facility] bmi 2021-10-18 15:40:00 38.66 kg/m2 [facility] oximetry 2021-10-18 15:40:00 97 % [facility] respiratory rate 2021-10-18 15:40:00 16 /min Comm on [facility] blood pressure 2021-10-18 15:40:00 130 mm[Hg] [facility] - systolic [facility] blood pressure 2021-10-18 15:40:00 68 mm[Hg] [facility] - diastolic [facility] height 2021-09-13 15:40:00 64.50 [in_i] Common [facility] weight 2021-09-13 15:40:00 231.6 [lb_av] Common [facility] temperature 2021-09-13 15:40:00 97.2 [degF] [facility] bmi 2021-09-13 15:40:00 39.14 kg/m2 [facility] oximetry 2021-09-13 15:40:00 96 % [facility] respiratory rate 2021-09-13 15:40:00 16 /min Comm on [facility] blood pressure 2021-09-13 15:40:00 140 mm[Hg] [facility] - systolic [facility] blood pressure 2021-09-13 15:40:00 82 mm[Hg] [facility] - diastolic [facility] height 2021-08-14 13:00:00 64.50 [in_i] Common [facility] weight 2021-08-14 13:00:00 231 [lb_av] [facility] temperature 2021-08-14 13:00:00 96.8 [degF] [facility] bmi 2021-08-14 13:00:00 39.03 kg/m2 [facility] oximetry 2021-08-14 13:00:00 98 % [facility] respiratory rate 2021-08-14 13:00:00 16 /min [facility] on [facility] blood pressure 2021-08-14 13:00:00 155 mm[Hg] [facility] - systolic [facility] blood pressure 2021-08-14 13:00:00 70 mm[Hg] [facility] - [facility] height 2021-06-05 14:00:00 64.50 [in_i] [facility] weight 2021-06-05 14:00:00 233 [lb_av] [facility] temperature 2021-06-05 14:00:00 96.7 [degF] [facility] bmi 2021-06-05 14:00:00 39.37 kg/m2 [facility] blood pressure 2021-06-05 14:00:00 146 mm[Hg] [facility] - systolic [facility] blood pressure 2021-06-05 14:00:00 84 mm[Hg] [facility] - diastolic [facility] height 2021-05-11 13:20:00 64.50 [in_i] [facility] weight 2021-05-11 13:20:00 228.7 [lb_av] [facility] temperature 2021-05-11 13:20:00 97.8 [degF] [facility] bmi 2021-05-11 13:20:00 38.65 kg/m2 [facility] S pirit [facility] oximetry 2021-05-11 13:20:00 98 % [facility] 2021-05-11 13:20:00 18 /min [facility] blood pressure 2021-05-11 13:20:00 139 mm[Hg] [facility] - systolic [facility] blood pressure 2021-05-11 13:20:00 67 mm[Hg] [facility] - diastolic [facility] height 2021-05-11 14:00:00 64.50 [in_i] [facility] weight 2021-05-11 14:00:00 228.7 [lb_av] [facility] temperature 2021-05-11 14:00:00 97.8 [degF] [facility] bmi 2021-05-11 14:00:00 38.65 kg/m2 [facility] blood pressure 2021-05-11 14:00:00 139 mm[Hg] [facility] - systolic [facility] blood pressure 2021-05-11 14:00:00 67 mm[Hg] [facility] - diastolic [facility] height 2021-04-02 15:20:00 64.50 [in_i] [facility] weight 2021-04-02 15:20:00 228 [lb_av] [facility] temperature 2021-04-02 15:20:00 96.9 [degF] [facility] bmi 2021-04-02 15:20:00 38.53 kg/m2 [facility] oximetry 2021-04-02 15:20:00 97 % [facility] respiratory rate 2021-04-02 15:20:00 19 /min [facility] blood pressure 2021-04-02 15:20:00 138 mm[Hg] [facility] - systolic [facility] blood pressure 2021-04-02 15:20:00 65 mm[Hg] [facility] - diastolic [facility] height 2020-12-22 10:00:00 64.50 [in_i] [facility] weight 2020-12-22 10:00:00 220 [lb_av] [facility] bmi 2020-12-22 10:00:00 37.18 kg/m2 [facility] Procedures Procedure Date / Time Performed Performing Clinician [facility] EXTERNAL PROVIDER 2021-11-26 05:01:00 Doctor Unassigned, No Univ [facility] RECORDS Name Medical Branch Encounters Start End Encounter Admission Attending Care Care Encounter Source Date/Time Date/Time Type Type Clinicians Facility Department ID 2022-01-17 Outpatient Jessa Ruelas [facility] [id number] 2 Common 11:35:01 [address]109 [facility] 2021-12-14 Outpatient Ruelas, Na STLMLC STLMLC [id number] 2 Common 09:46:00 [facility] 2021-10-16 Outpatient Ruelas, Na STLMLC STLMLC [id number] 2 Common 15:14:01 [facility] 2021-09-12 Outpatient Ruelas, Na STLMLC STLMLC [id number] 2 Common 15:57:01 [facility] 2021-09-11 Outpatient Ruelas, Na STLMLC STLMLC [id number] 2 Common 10:21:01 [facility] 2021-08-13 Outpatient Ruelas, Na STLMLC STLMLC [id number] 2 Common 13:31:00 [facility] 2021-05-18 Outpatient Ruelas, Na STLMLC STLMLC [id number] 2 Common 11:01:01 [facility] 2021-05-11 Outpatient Ruelas, Na STLMLC STLMLC [id number] 2 Common 13:17:01 [facility] 2021-05-10 Outpatient Ruelas, Na STLMLC STLMLC [id number] 2 Common 09:35:00 [facility] 2021-05-09 Outpatient Ruelas, Na STLMLC STLMLC [id number] 2 Common 11:36:01 [facility] 2021-04-10 Outpatient Ruelas, Na STLMLC STLMLC [id number] 2 Common 14:01:01 [facility] 2021-04-04 Outpatient Ruelas, Na STLMLC STLMLC [id number] 2 Common 14:35:57 [facility] 2021-04-04 Outpatient Ruelas, Na STLMLC STLMLC [id number] 2 Common 14:32:10 [facility] 2021-04-04 Outpatient Ruelas, Na STLMLC STLMLC [id number] 2 Common 14:26:31 [facility] 2021-04-04 Outpatient Ruelas, Na STLMLC STLMLC [id number] 2 Common 14:22:06 65420 [facility] 2021-04-04 Outpatient Ruelas, Na STLMLC STLMLC [id number] 2 Common 13:47:57 77296 [facility] 2021-04-04 Outpatient Ruelas, Na STLMLC STLMLC [id number] 2 Common 13:31:15 33570 [facility] 2021-04-04 Outpatient Ruelas, Na STLMLC STLMLC [id number] 2 Common 13:17:49 20772 [facility] 2021-04-04 Outpatient Ruelas, Na STLMLC STLMLC [id number] 2 Common 13:15:11 23850 [facility] 2021-04-04 Outpatient Ruelas, Na STLMLC STLMLC [id number] 2 Common 12:56:33 01944 [facility] 2021-04-04 Outpatient Ruelas, Na STLMLC STLMLC [id number] 2 Common 12:51:32 77447 [facility] 2021-04-04 Outpatient Ruelas, Na STLMLC STLMLC [id number] 2 Common 12:45:45 17911 [facility] 2021-04-04 Outpatient Ruelas, Na STLMLC STLMLC [id number] 2 Common 12:44:50 28778 [facility] 2021-04-04 Outpatient Ruelas, Na STLMLC STLMLC [id number] 2 Common 12:26:48 55665 [facility] 2021-04-04 Outpatient Ruelas, Na STLMLC STLMLC [id number] 2 Common 12:25:49 10935 [facility] 2021-04-04 Outpatient Ruelas, Na STLMLC STLMLC [id number] 2 Common 12:12:47 45519 [facility] 2021-04-04 Outpatient Ruelas, Na STLMLC STLMLC [id number] 2 Common 12:03:01 11852 [facility] 2021-04-04 Outpatient Ruelas, Na STLMLC STLMLC [id number] 2 Common 12:02:32 48180 [facility] 2021-04-04 Outpatient Ruelas, Na STLMLC STLMLC [id number] 2 Common 11:46:04 56165 [facility] 2021-04-04 Outpatient Ruelas, Na STLMLC STLMLC [id number] 2 Common 11:45:14 23682 [facility] 2021-04-04 Outpatient Ruelas, Na STLMLC STLMLC [id number] 2 Common 11:44:02 08960 [facility] 2021-04-04 Outpatient Ruelas, Na STLMLC STLMLC [id number] 2 Common 11:26:10 42476 [facility] 2021-04-04 Outpatient Ruelas, Na STLMLC STLMLC [id number] 2 Common 11:25:37 61122 [facility] 2021-04-04 Outpatient Ruelas, Na STLMLC STLMLC [id number] 2 Common 11:02:45 99681 [facility] 2020-04-11 Inpatient EL Elders, HCACR DAYS [id number] [facility] 11:00:00 Luis [facility] 2020-03-07 Inpatient EL Elders, HCACR DAYS [id number] [facility] 14:40:00 Luis 57 [facility] 2022-01-25 2022-01-25 Patient [place], [facility] [id number] Univers 00:00:00 00:00:00 Secure Msg Roxaneholliday MULTISPEC [id number] ity of [place] [id number] [facility] [phone] [facility] 2022-01-09 2022-01-09 (TEL) STLMLC STLMLC [id number] Co mmon 00:00:00 00:00:00 [facility] 2021-12-20 2021-12-20 (WEB) STLMLC STLMLC [id number] Co mmon 00:00:00 00:00:00 [facility] 2021-11-26 2021-11-26 Orders Doctor RUBY [id number] Univers 00:00:00 00:00:00 Only Unassigned, WILLIAM [id number] [facility] [id number] Tramaine as [phone] [address] 2021-11-15 2021-11-15 OFFICE STLMLC STLMLC [id number] Co mmon 00:00:00 00:00:00 VISIT EST Spir it PT LEVEL 3 [facility] 2021-10-30 2021-10-30 Outpatient R JOVI [facility] [id number] Univers 12:00:00 12:53:55 [facility] ity [facility] 2021-10-30 2021-10-30 Office Jovi [facility] [id number] Univers 12:00:00 12:53:55 Visit [facility] [id number] it y of [place] [id number] Tramaine as HIGINIO?BLEA [phone] [address] MEDICAL OFFICE BUILDING 2021-10-23 2021-10-23 (TEL) STLMLC STLMLC [id number] Co mmon 00:00:00 00:00:00 [facility] 2021-10-20 2021-10-20 (TEL) STLMLC STLMLC [id number] Co mmon 00:00:00 00:00:00 [facility] 2021-10-18 2021-10-18 OFFICE STLMLC STLMLC [id number] Co mmon 00:00:00 00:00:00 VISIT EST Spir it PT LEVEL 3 [facility] 2021-09-13 2021-09-13 OFFICE STLMLC STLMLC [id number] Co mmon 00:00:00 00:00:00 VISIT EST Spir it PT LEVEL 3 [facility] 2021-08-31 2021-08-31 (TEL) STLMLC STLMLC [id number] Co mmon 00:00:00 00:00:00 [facility] 2021-08-14 2021-08-14 OFFICE STLMLC STLMLC [id number] Co mmon 00:00:00 00:00:00 VISIT EST Spir it PT LEVEL 3 - [facility] 2021-08-10 2021-08-10 Patient [facility] [id number] Univers 00:00:00 00:00:00 Secure Msg Teresa MULTISPEC [id number] ity of [place] [id number] [facility] [phone] [facility] AND [place] [address] [facility] 2021-08-08 2021-08-08 (TEL) STLMLC STLMLC [id number] Co mmon 00:00:00 00:00:00 [facility] 2021-08-03 2021-08-03 (TEL) STLMLC STLMLC [id number] Co mmon 00:00:00 00:00:00 [facility] 2021-06-05 2021-06-05 OFFICE STLMLC STLMLC [id number] Co mmon 00:00:00 00:00:00 VISIT NEW Spir it PT LEVEL 4 - [facility] 2021-05-30 2021-05-30 (TEL) STLMLC STLMLC [id number] Co mmon 00:00:00 00:00:00 [facility] 2021-05-21 2021-05-21 [facility] [id number] Univers 14:28:47 23:59:00 TEREAS ity [facility] 2021-05-21 2021-05-21 [facility] [id number] Univers 14:00:00 23:59:00 Encounter Teresa [place] [id number] it[facility] [id number] [facility] [phone] [facility] [address] 2021-05-14 2021-05-14 [facility] [id number] Univers 00:00:00 00:00:00 ROXANEONG ity [facility] 2021-05-11 2021-05-11 SUB ANNUAL STLMLC STLMLC [id number] Common 00:00:00 00:00:00 [facility] WELLNESS - CHI VISIT [facility] 2021-05-11 2021-05-11 OFFICE STLMLC STLMLC [id number] Co mmon 00:00:00 00:00:00 VISIT EST Spir it PT LEVEL 3 - CHI [facility] 2021-05-10 2021-05-10 (TEL) STLC STLC [id number] Co mmon 00:00:00 00:00:00 [facility] 2021-05-07 2021-05-07 Outpatient R JOVI, [facility] [id number] Univers 14:30:00 14:30:00 [facility] 2021-05-01 2021-05-01 [facility] [id number] Univers 11:30:00 12:27:00 [facility] 2021-04-24 2021-04-24 [facility] [id number] Univers 10:30:00 11:00:00 Visit [facility] [id number] it y of [place] [id number] Tramaine as HIGINIO?BLEA [phone] [address] MEDICAL OFFICE BUILDING 2021-04-24 2021-04-24 [facility] [id number] Univers 10:30:00 10:30:00 [facility] 2021-04-09 2021-04-09 [facility]EL[facility] [id number] Co mmon 00:00:00 00:00:00 [facility] - [facility] 2021-04-02 2021-04-02 OFFICE STLC STLC [id number] Co mmon 00:00:00 00:00:00 VISIT EST Spir it PT LEVEL 3 - [facility] 2021-03-15 2021-03-15 (TEL) STLMLC STLMLC [id number] Co mmon 00:00:00 00:00:00 [facility] 2021-03-15 2021-03-15 (TEL) STLMLC STLMLC [id number] Co mmon 00:00:00 00:00:00 [facility] 2021-02-14 2021-02-14 (TEL) STLMLC STLMLC [id number] Co mmon 00:00:00 00:00:00 [facility] 2021-02-06 2021-02-06 (TEL) STLMLC STLMLC [id number] Co mmon 00:00:00 00:00:00 [facility] 2021-01-01 2021-01-01 (INJ) STLMLC STLMLC [id number] Co mmon 00:00:00 00:00:00 Injection Spir [facility] 2021-01-01 2021-01-01 (TEL) STLMLC STLMLC [id number] Co mmon 00:00:00 00:00:00 [facility] 2020-12-27 2020-12-27 (TEL) STLMLC STLMLC [id number] Co mmon 00:00:00 00:00:00 [facility] 2020-12-22 2020-12-22 OFFICE STLMLC STLMLC [id number] Co mmon 00:00:00 00:00:00 VISIT EST Spir it PT LEVEL 3 [facility] 2020-12-22 2020-12-22 (TEL) STLMLC STLMLC [id number] Co mmon 00:00:00 00:00:00 [facility] 2020-12-22 2020-12-22 (TEL) STLMLC STLMLC [id number] Co mmon 00:00:00 00:00:00 [facility] 2020-12-01 2020-12-01 (TEL) STLMLC STLMLC [id number] Co mmon 00:00:00 00:00:00 [facility] 2020-10-24 2020-10-24 Outpatient STLMLC STLMLC [id number] Common 00:00:00 00:00:00 [facility] 2020-08-02 2020-08-02 Outpatient STLMLC STLMLC [id number] Common 00:00:00 00:00:00 [facility] 2020-07-05 2020-07-05 Outpatient STLMLC STLMLC [id number] Common 00:00:00 00:00:00 [facility] 2020-06-20 2020-06-20 Outpatient STLMLC STLMLC [id number] Common 00:00:00 00:00:00 [facility] 2020-06-20 2020-06-20 Outpatient STLMLC STLMLC [id number] Common 00:00:00 00:00:00 [facility] 2020-06-15 2020-06-15 Outpatient STLMLC STLMLC [id number] Common 00:00:00 00:00:00 [facility] 2020-06-06 2020-06-06 Outpatient STLMLC STLMLC [id number] Common 00:00:00 00:00:00 [facility] 2020-06-05 2020-06-05 Outpatient STLMLC STLMLC [id number] Common 00:00:00 00:00:00 [facility] 2020-05-29 2020-05-29 Outpatient STLMLC STLMLC [id number] Common 00:00:00 00:00:00 [facility] 2020-05-09 2020-05-09 Outpatient STLMLC STLMLC [id number] Common 00:00:00 00:00:00 [facility] 2020-05-05 2020-05-05 Outpatient STLMLC STLMLC [id number] Common 00:00:00 00:00:00 [facility] 2020-04-19 2020-04-19 Outpatient STLMLC STLMLC [id number] Common 00:00:00 00:00:00 [facility] 2020-04-07 2020-04-07 Outpatient STLMLC STLMLC [id number] Common 00:00:00 00:00:00 [facility] 2020-03-28 2020-03-28 Outpatient STLMLC STLMLC [id number] Common 00:00:00 00:00:00 [facility] 2020-02-24 2020-02-24 Outpatient STLMLC STLMLC [id number] Common 00:00:00 00:00:00 [facility] 2020-02-22 2020-02-22 Outpatient STLMLC STLMLC [id number] Common 00:00:00 00:00:00 [facility] 2020-01-14 2020-01-14 Outpatient STLMLC STLMLC [id number] Common 00:00:00 00:00:00 [facility] 2019-11-23 2019-11-23 [facility] [id number] Common 11:00:00 11:00:[address] [facility] 2019-11-16 2019-11-16 Out[facility] [id number] Common 09:52:00 09:52:[address] [facility] 2019-08-30 2019-08-30 [facility] [id number] Common 08:49:00 08:49:[address] [facility] 2019-08-18 2019-08-18 Out[facility] [id number] Common 09:40:00 09:40:[address] [facility] 2019-08-10 2019-08-10 [facility] [id number] Common 14:31:00 14:31:[address] [facility] 2019-08-07 2019-08-07 [facility] [id number] Common 07:31:00 07:31:[address] [facility] 2019-08-06 2019-08-06 [facility] [id number] Common 09:20:00 09:20:[address] [facility] 2019-04-30 2019-04-30 [facility] [id number] Common 16:02:00 16:02:[address] Sp[address] Family - [facility] 2019-04-15 2019-04-15 [facility] [id number] Common 10:26:00 10:26:[address] Sp[address] Family [facility] 2019-04-12 2019-04-12 Out[facility] [id number] Common 09:27:00 09:27:[address] Sp[address] Family - [facility] 2019-04-02 2019-04-02 [facility] [id number] Common 08:40:00 08:40:[address] Family [facility] 2019-04-01 2019-04-01 Out[facility] [id number] Common 11:20:00 11:20:[address] Sp[address] [facility] Results Test Description Test Time Test Comments Results Result [facility] Comments - XR FLUORO FOR 2020-04-11 SPINE INJ 14:34:00 [facility] BRANDE[facility]OSÉ : 1965 Sex: F FAX: Luis Eisenberg MD [phone] [place]: [address]: REG Patient Name: BRANDEE JOSÉ Unit No: [id number] EXAMS: CPT CODE: [id number] XR FLUORO FOR SPINE INJ [id number] Location: T 18 INDICATION: ONELIA IMPRESSION: 12 seconds of intraoperative fluoroscopy provided for lumbar ONELIA. I was not present for or involved with the procedure or provided fluoroscopy. Please refer to the procedure note for details. Radiation dose 7 mGy (PSD). at 1434 Reported and signed by: Santino Golden M.D. CC: Luis Porter MD Dictated Date/Time: 04/11/2020 (2089)Technologist: Maurizio Perla Transcribed Date/Time: 04/11/2020 (0137) By: [email or web address] Orig Print D/T: S: 04/11/2020 (8748) JAY Hardwick NAME: [facility] PHYS: Luis Mora MD [address] [place] [address] BLVD : 1965 AGE: 54 SEX: F [place], [place] [address] LOC: SHADI PHONE #: [phone] EXAM DATE: 04/11/2020 STATUS: REG SD FAX #: [phone] RAD NO: DC Dt: PAGE 1 Signed Report GLUCOSE BEDSIDE TESTING 2020-04-11 11:35:00 Test Item Value Reference Range Interpretation Comme nts GLUCOSE BEDSIDE TESTING (test code = GLUBED) 189 MG/DL 70-119 H COVID Asymptomatic IH [id number] 12:52:00 Test Item Value Reference Interpretation Comments [...] This test was p erformed using the [employer] TM COVID-19 PCRassay. This test was developed and i ts performancechar acteristics were determined by [facility]. Thi s test has notbeen [...] setting? No? NoAge at collection: YHCG SERUM [id number] 12:55:00 Test Item Value Reference Range Interpretation [...] 1 NORMAL code = LIPINDEX) Index/DL HGB [id number] 12:38:00 Test Item Value Reference Range Interpretation Comments RED BLOOD CELL (test code = RBC) 4.52 M/mm3 3.8-5.5 N HEMOGLOBIN (test code = HGB) 13.4 G/DL 10.6-15.8 N HEMATOCRIT (test code = HCT) 42.3 % 31.8-47.4 N MEAN CELL VOLUME (test code = MCV) 93.6 fL 80.1-101.1 N - XR CHEST 2 [id number] 12:21:00 [facility] : 1965 Sex: F FAX: Luis Teixeira MD [phone] [place]: St: PRE Patient Name: BRANDEE JOSÉ Unit No: [id number] EXAMS: CPT CODE: [id number] XR CHEST 2 V 23948 Site ID: [id number] HISTORY: Preoperative FINDINGS: The lungs are clear and normally expanded. The heart and pulmonary vasculature is normal. Osseous structures are unremarkable. IMPRESSION: Normal preoperative chest x-ray at 1221 Reported and signed by: Santino Golden M.D. CC: Luis Porter MD Dictated Date/Time: 04/06/2020 (1221)Technologist: Smith Benton Transcribed Date/Time: 04/06/2020 (1221) By: [email or web address] Orig Print D/T: S: 04/06/2020 (5150) [facility] NAME: BRANDEE JOSÉ [address] [place] [address] PHYS: Luis Thomas MD [place], [place] : 1965 AGE: 54 SEX: F [id number] LOC: SHADI PHONE #: [phone] EXAM DATE: 04/06/2020 STATUS: PRE SD FAX #: [phone] RAD NO: DC Dt:PAGE 1 Signed ReportGLUCOSE BEDSIDE [id number] 07:49:00 Test Item Value Reference Range Interpretation Comments GLUCOSE BEDSIDE TESTING (test code 141 MG/DL 70-119 H = GLUBED) Novel Coronavirus 2019 [id number] 18:08:00 Test Item Value Reference Range Interpretation Comments Novel Coronavirus Not Detected Not Detected Testing wa s performed 2018 Inhouse (test using the [employer] code = COVNONPUI) SARS-CoV-2 assay.This nucleic acid amplification t est was developed and itsperformance characteristics determined by [facility]. Nucleic acid amplification t ests include PCRand [...] frannie gnosis of COVID-19 infect ion under (b)(1 ) of the Act, 21 U.S.C. 360bbb-3(b) [...] detected) resul t in this assay.Performed At: [facility] [id number] fady Gillis MD Ph:[phone] UR HCG [id number] 16:55:00 Test Item Value Reference Range Interpretation Comments UR HCG QUAL (test NEGATIVE NEG Very dilut e urines with a code = HCGQLU) low specific gravity may notcontain repr esentative levels of hCG. - XR CHEST 2 [id number] 16:55:00 [facility] : 1965 Sex: F FAX: Luis Teixeira MD [phone] [place]: O St: PRE Patient Name: BRANDEE JOSÉ Unit No: [id number] EXAMS: CPT CODE: [id number] XR CHEST 2 V [id number] - XR CHEST 2 V LOCATION: T18 [...] Hailey Phan Transcribed Date/Time: 03/01/2020 (1654) By: ReeTM Orig Print D/T: S: 03/01/2020 (1657) JAY Hardwick NAME: [facility] PHYS: Luis Mora MD [address] [facility] [address] 1965 AGE: 54 SEX: F [place], [place] [address] LOC: SHADI PHONE #: [phone] EXAM DATE: 03/01/2020 STATUS: PRE [facility] [place] #: [phone] RAD NO: DC Dt: PAGE 1 Sign ed ReportCOMPREHENSIVE METABOLIC [id number] 16:39:00 Test Item Value Reference Range Interpretation [...] code = LIPINDEX) MG Index/DL COMPREHENSIVE METABOLIC [id number] 16:34:00 Test Item Value Reference Range Interpretation [...] MG 1 NORMAL = LIPINDEX) Index/DL HGB [id number] 16:22:00 Test Item Value Reference Range Interpretation Comments RED BLOOD CELL (test code = RBC) 4.61 M/mm3 3.8-5.5 N HEMOGLOBIN (test code = HGB) 13.6 G/DL 10.6-15.8 N HEMATOCRIT (test code = HCT) 42.7 % 31.8-47.4 N MEAN CELL VOLUME (test code = MCV) 92.6 fL 80.1-101.1 N
[2022-01-25] MEDS ORDERED: dexAMETHasone 10 MG/ML VIAL ONE (19:02)
--- NOTE | 2022-01-25 19:29 | EDPHYS ---
Physician Documentation [facility] Name: Brandee Rajan Age: 56 yrs Sex: Female : 1965 Arrival Date: 01/25/2022 Time: 17:25 Bed 10 Private MD: Jessa Ruelas ED Physician Compa Harrington HPI: 01/25 18:14 This 56 yrs old Female presents to ER via Ambulatory with complaints of Throat problem. jmm 18:14 The patient presents with sore throat. Onset: The symptoms/episode began/occurred jmm gradually. Onset: The symptoms/episode began/occurred 3 day(s) ago. Modifying factors: The symptoms are alleviated by nothing, the symptoms are aggravated by swallowing. Associated signs and symptoms: Pertinent positives: chills, Pertinent negatives chest pain, cough, fever, shortness of breath. The patient has experienced similar episodes in the past. 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 - Social history:: Smoking status: Patient reports the use of cigarette tobacco products, smokes one-half pack cigarettes per day. ROS: 18:14 Constitutional: Positive for body aches, chills. jmm 18:14 ENT: Positive for sore throat. 18:14 All other systems are negative. Exam: 18:14 Constitutional: This is a well developed, well nourished patient who is awake, alert, jmm and in no acute distress. Head/Face: atraumatic. Eyes: EOMI, no conjunctival erythema appreciated 18:14 Neck: Trachea midline, Supple Chest/axilla: Normal chest wall appearance and motion. Cardiovascular: Regular rate and rhythm. No edema appreciated Respiratory: Normal respirations, no respiratory distress appreciated Abdomen/GI: Non distended Back: Normal ROM Skin: General appearance color normal MS/ Extremity: Moves all extremities, no obvious deformities appreciated, no edema noted to the lower extremities Neuro: Awake and alert Psych: Behavior is normal, Mood is normal, Patient is cooperative and pleasant 18:14 ENT: Posterior pharynx: erythema, that is moderate. Vital Signs: 18:11 BP 127 / 78; Pulse 87; Resp 17; Temp 97.9; Pulse Ox 97% ; Weight 102.97 kg; Height 5 vg1 ft. 4 in. (162.56 cm); Pain 6/10; 18:11 Body Mass Index 38.97 (102.97 kg, 162.56 cm) vg1 MDM: 18:26 Patient medically screened. [facility] 19:25 Data reviewed: vital signs, nurses notes. Counseling: I had a detailed discussion with nata the patient and/or guardian regarding: the historical points, exam findings, and any diagnostic results supporting the discharge/admit diagnosis, lab results, the need for outpatient follow up, to return to the emergency department if symptoms worsen or persist or if there are any questions or concerns that arise at home. ED course: Patient is alert and non toxic in appearance in the ED. No signs of resp distress. Advised to follow up with pcp and otherwise given strict return precautions. patient understood and agrees with the plan of care. . 01/25 18:14 Order name: Strep; Complete Time: 18:39 vg1 01/25 18:38 Order name: Throat Culture EDMS Administered Medications: 19:05 Drug: Decadron (dexamethasone) 10 mg Route: IM; Site: left gluteus; ap3 Disposition Summary: 01/25/22 19:29 Discharge Ordered Location: Home [facility] Condition: Stable [facility] Diagnosis - Acute pharyngitis, unspecified [facility] Followup: [facility] - With: Jessa Ruelas MD - When: 2 - 3 days - Reason: Recheck today's complaints, Continuance of care, Re-evaluation by your physician Discharge Instructions: - Discharge Summary Sheet [facility] - Pharyngitis [facility] Forms: - Medication Reconciliation Form [facility] - Thank You Letter [facility] - Antibiotic Education [facility] - Prescription Opioid Use [facility] Prescriptions: - Zithromax Z-Bruno 250 mg Oral Tablet - take 1 tablet by ORAL route as directed for 5 days Day 1 - take two (2) tablets [facility] one time. Day 2, 3, 4 , 5 take one (1) tablet once daily.; 6 tablet; Refills: 0, Product Selection Permitted Addendum: 01/27/2022 13:39 Co-signature as Attending Physician, Compa Harrington MD I agree with the assessment and c mixon plan of care. Signatures: Dispatcher [employer] Compa Woodward MD MD cha Mickail, Joel, PA PA jmm Prokisch, Amanda RN RN ap3 Liz Hamilton RN RN vg1
--- NOTE | 2022-01-25 19:29 | ER ---
Nurse's Notes [facility] Name: Brandee Rajan Age: 56 yrs Sex: Female : 1965 Arrival Date: 01/25/2022 Time: 17:25 Bed 10 Private MD: Jessa Ruelas Diagnosis: Acute pharyngitis, unspecified Presentation: 01/25 18:11 Chief complaint: Patient states: "I have seasonal allergies and used to getting sick vg1 with weather changes and my throat is hurting, no fever" Stated having problems swallowing at night. Coronavirus screen: Vaccine status: Patient reports being unvaccinated. Ebola Screen: Patient negative for fever greater than or equal to 101.5 degrees Fahrenheit, and additional compatible Ebola Virus Disease symptoms. Initial Sepsis Screen: Does the patient meet any 2 criteria? No. Patient's initial sepsis screen is negative. Does the patient have a suspected source of infection? No. Patient's initial sepsis screen is negative. Risk Assessment: Do you want to hurt yourself or someone else? Patient reports no desire to harm self or others. Onset of symptoms was January 23, 2022. 18:11 Method Of Arrival: Ambulatory 1 18:11 Acuity: ONELIA 4 vg1 Triage Assessment: 18:13 General: Appears comfortable, Behavior is calm, cooperative. Pain: Complains of pain in vg1 throat Pain currently is 6 out of 10 on a pain scale. EENT: Throat is reddened. 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 - Social history:: Smoking status: Patient reports the use of cigarette tobacco products, smokes one-half pack cigarettes per day. Screenin:05 Abuse screen: Denies threats or abuse. Nutritional screening: No deficits noted. ap3 Tuberculosis screening: No symptoms or risk factors identified. Fall Risk None identified. Assessment: 19:06 General: Appears in no apparent distress. Behavior is calm, cooperative. Pain: ap3 Complains of pain in throat. Neuro: Level of Consciousness is awake, alert, Oriented to person, place, time, situation, Appropriate for age. Cardiovascular: Patient's skin is warm and dry. Respiratory: Airway is patent Respiratory effort is even, unlabored, Respiratory pattern is regular, symmetrical. Vital Signs: 18:11 BP 127 / 78; Pulse 87; Resp 17; Temp 97.9; Pulse Ox 97% ; Weight 102.97 kg; Height 5 vg1 ft. 4 in. (162.56 cm); Pain 6/10; 18:11 Body Mass Index 38.97 (102.97 kg, 162.56 cm) vg1 ED Course: 17:25 Patient arrived in ED. mr 17:25 Jessa Ruelas MD is Private Physician. mr 18:13 Triage completed. vg1 18:13 Arm band placed on. vg1 18:14 Elias Watkins PA [facility] 18:14 Compa Harrington MD is Attending Physician. [facility] 19:05 Patient has correct armband on for positive identification. Door closed. Noise ap3 minimized. 19:05 No provider procedures requiring assistance completed. Patient did not have IV access ap3 during this emergency room visit. 19:29 Jessa Ruelas MD is Referral Physician. [facility] Administered Medications: 19:05 Drug: Decadron (dexamethasone) 10 mg Route: IM; Site: left gluteus; ap3 Medication: 19:05 VIS not applicable for this client. ap3 Outcome: 19:29 Discharge ordered by . nata 20:23 Discharged to home ambulatory. ld1 20:23 Condition: stable 20:23 Discharge instructions given to patient. 20:24 Patient left the ED. ld1 Signatures: Elias Watkins PA PA jmm PatricDot Shira Baldwin, RN RN ap3 Liz Hamilton, ARTHUR RN vg1 Ana Maloney RN RN ld1
[2022-01-25 20:53] VITALS: BP 127/78; TEMP 97.9; O2SAT 97
== END 2022-01-25 20:24 | disposition home or self-care (01) ==
LOC: ER 17:24
DX: J02.9 Acute pharyngitis, unspecified (principal); I10 Essential (primary) hypertension; F17.210 Nicotine dependence, cigarettes, uncomplicated
CPT/HCPCS: 87070; 87081; 96372; 99283; J1100

== ENCOUNTER 2022-04-13 23:53 | Observation (INO) | payer OTHER ==
--- OUTSIDE RECORDS SUMMARY | 2022-04-14 00:11 | XMS REPORT | Continuity of Care Document ---
:1965 Author Organization [facility] t Address [address] [place] [place] [address] Care Team Providers Name Role Phone Jessa Ruelas Primary Care Physician Chayo Gonzalez Attending Clinician Unavailable Jessa Ruelas Attending Clinician Unavailable Luis Porter Attending Clinician Unavailable TERESA ESPANA Attending Clinician Unavailable Teresa Espana MD Attending Clinician Doctor Unassigned, [place] Attending Clinician Unavailable Physician, No Primary or Family Admitting Clinician Unavaila TERESA Bridges Admitting Clinician Unavailable Payers Payer Name Policy Type Policy Number Effective Date Expiration Date S cynthia [employer] GOLD PLS [id number] 2019 O 00:00:00 [place]ICA[place] [id number] 2021 [place] 00:[place]:00 [employer] MEDICARE 53 [id number] 2021 Common Sp valorie 00:00:00 - [facility] HU[employer]NA MEDICARE C1 [id number] 2019 Common [facility] [id number] 2019 Common Sp valorie 00:00:00 [facility] HUMANA MEDICARE C1 [id number] 2019 Common Sp valorie 00:00:00 - [facility] HU[employer]NA MEDICARE C1 [id number] 2019 Common Sp valorie 00:00:00 - [facility] MEDICARE C1 [id number] 2019 Common Sp valorie 00:00:00 - [facility] MEDICARE C1 [id number] 2019 Common Sp valorie 00:00:00 - [facility] MEDICARE C1 [id number] 2019 Common Sp valorie 00:00:00 - [facility] MEDICARE C1 [id number] 2019 Common Sp valorie 00:00:00 [facility] Problems Condition Condition Condition Status Onset Resolution Last Treating Co mments Source Name Details Category Date Date Treatment Clinician Date Adrenal Adrenal Disease Active Univers mass 1 cm mass 1 cm 3-20 ity of [place] 4 [place] 4 [place] diameter 00 [place] Branch [id number] Type 2 [place] [id number] diabetes Spirit mellitus - [facility] with [facility] Sinus Sinus Problem Common problem problem Spirit - [facility] [id number] Type 2 Problem Common diabetes Spirit mellitus - [facility] with [facility] neuropathy Medica l , Center unspecifie d [id number] Mixed Problem Common hyperlipid Spirit emia - [facility] [id number] Other Problem Common chronic Spirit pain - [facility] [id number] Depression Problem Co mmon with Spirit anxiety - [facility] Gallstones Gallstones Problem C ommon Spirit [facility] [id number] Type 2 Problem Common diabetes [id number] Mixed Problem Common stress and Spirit urge - CHI 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 with nicotine-i [facility] nduced Medical disorder Center [id number] Chronic Problem Common obstructiv Spirit [facility] Center type Gastroesop Gastroesop Problem C ommon hageal hageal Spirit reflux reflux - CHI disease disease, esophagiti 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 extremitie [facility] pain [facility] [place] [id number] Essential Problem Comm on hypertensi Spirit on - CHI [facility] [id number] Acute Problem Common bronchitis Spirit , - CHI unspecifie [facility] [id number] Lumbar Problem Common degenerati Spirit ve disc - CHI disease [facility] [id number] Lesion of Problem Co mmon [address]6615 plantar Spirit nerve, - CHI left lower [facility] [id number] Smokes Problem Common cigarettes Spirit [facility] [id number] [place] [address] left foot Spirit - CHI [facility] [id number] Posterior Problem Co mmon 36819 tibial Spirit tendinitis - CHI , left leg [facility] Seizure Seizures Problem Common Spirit - CHI [facility] Memory Memory Problem Common problem problem Spirit CHI [facility] Acquired Acquired Problem Commo n hypothyroi hypothyroi Sp valorie dism dism - CHI [facility] [id number] Suspected Problem Com mon ingested Spirit foreign - CHI body not [facility] after Medical observatio Center n [id number] Chronic Problem Common fatigue [facility] [id number] Leukocytos Problem Co mmon is, Spirit unspecifie - CHI d type [facility] 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 without y without macular macular edema, edema, without without long-term long-term current current use of use of insulin insulin [id number] Primary Problem Comm on osteoarthr Spirit itis of - CHI right knee [facility] [id number] Postmenopa Problem Com mon usal Spirit bleeding [facility] Depression Depression Problem C ommon Spirit [facility] Allergies, Adverse Reactions, Alerts Allergy Allergy Status Severity Reaction(s) Onset Inactive Treating Comm ents Source Name Type Date Date Clinician romulowoo DA Active ID [facility] d 04-06 [place] 00:00: [address] ragweed DA Active ID [facility] pollen 04-06 [place] 00:00: [facility] cedarwoo DA Active ID SINUS [facility] d PROBLEMS 04-06 [place] 00:00: [address] ragweed DA Active ID SINUS [facility] pollen PROBLEMS 04-06 [place] 00:00: [address] No Known DA Active U 2019- [facility] Allergie - [place] s 00:00: [address] No Known DA Active U 2020- [facility] Allergie 2-23 [place] 00:00: [address] NO KNOWN Drug Active Univers ALLERGIE Class ity of S [place] [facility] Social History Social Habit Start Date Stop Date Quantity Comments Source History of Current Smoker Common Spi rit - Tobacco Use [facility] Sex Assigned At [facility] valorie - [facility] Exposure to 2021-10-20 2021-10-30 Not sure University of SARS-CoV-2 00:00:00 11:49:00 [place] [facility] (event) Branch Smoking Status Start Date Stop Date Source Unknown if ever smoked [facility] valorie [facility] Current Smoker 2022-04-11 00:00:00 [facility] Spiri t [facility] Medications Ordered Filled Start Stop Current Ordering Indication Dosage Frequency Signature Comments Components Source Medication Medication Date Date Medication? Clinician (SIG) Name Name insulin Yes [id number] 90U inject 90 Univers glargine 1-14 Units ity of U-300 conc 00:00: [place] (LIEN MAX 00 skin in Medic al U-300 the [facility]) morning. 300 unit/mL (3 mL) InPn metformin 0 Yes [id number] TAKE 1 U nivers ER 750 mg 1-14 TABLET ity of 24 hr 00:00: EVERY [place] tablet 00 MORNING Medical AND TAKE 1 Branch TABLET EVERY EVENING WITH MEALS insulin 0 Yes [id number] 90U inject 90 Univers glargine 1-14 Units ity of U-300 conc [place] MAX 00 skin in Medic al U-300 the [facility]) morning. 300 unit/mL (3 mL) InPn metformin Yes [id number] TAKE 1 U nivers ER 750 mg 1-14 TABLET ity of 24 hr 00:00: EVERY [place] tablet 00 MORNING Medical AND TAKE 1 Branch TABLET EVERY EVENING WITH MEALS insulin Yes [id number] 90U inject 90 Univers glargine 1-14 Units ity of U-300 conc [place]: [place] ([place] MAX 00 skin in Medic al U-300 the [facility]) morning. 300 unit/mL (3 mL) InPn metformin Yes [id number] TAKE 1 U nivers ER 750 mg 1-14 TABLET ity of 24 hr 00:00: EVERY [place] tablet 00 MORNING Medical AND TAKE 1 Branch TABLET EVERY EVENING WITH MEALS insulin Yes [id number] 90U inject 90 Univers glargine 1-14 Units ity of U-300 conc [place]: [place] MAX 00 skin in Medic al U-300 the [facility]) morning. 300 unit/mL (3 mL) InPn metformin 0 Yes [id number] TAKE 1 U nivers ER 750 mg 1-14 TABLET ity of 24 hr 00:00: EVERY [place] tablet 00 MORNING Medical AND TAKE 1 Branch TABLET EVERY EVENING WITH MEALS insulin Yes [id number] 90U inject 90 Univers glargine 1-14 Units ity of U-300 conc [place]: [place] ([place] MAX 00 skin in Medic al U-300 the [facility]) morning. 300 unit/mL (3 mL) InPn metformin Yes [id number] TAKE 1 U nivers ER 750 mg 1-14 TABLET ity of 24 hr 00:00: EVERY [place] tablet 00 MORNING Medical AND TAKE 1 Branch TABLET EVERY EVENING WITH MEALS dulaglutide Yes [id number] INJECT Univers (TRULICITY) 1-08 0.75MG (1 ity of 0.75 mg/0.5 00:00: PEN) [place] mL PnIj 00 SUBCUTANEO Medica l USLY EVERY Branch WEEK dulaglutide Yes [id number] INJECT Univers (TRULICITY) 1-08 0.75MG (1 ity of 0.75 mg/0.5 00:00: PEN) [place] mL PnIj 00 SUBCUTANEO Medica l USLY EVERY Branch WEEK dulaglutide Yes [id number] INJECT Univers (TRULICITY) 1-08 0.75MG (1 ity of 0.75 mg/0.5 00:00: PEN) [place] mL PnIj 00 SUBCUTANEO Medica l USLY EVERY Branch WEEK dulaglutide Yes [id number] INJECT Univers (TRULICITY) 1-08 0.75MG (1 ity of 0.75 mg/0.5 00:00: PEN) [place] mL PnIj 00 SUBCUTANEO Medica l USLY EVERY Branch WEEK dulaglutide Yes [id number] INJECT Univers (TRULICITY) 1-08 0.75MG (1 ity of 0.75 mg/0.5 00:00: PEN) [place] mL PnIj 00 SUBCUTANEO Medica l USLY EVERY Branch WEEK dulaglutide Yes [id number] INJECT Univers (TRULICITY) 1-08 0.75MG (1 ity of 0.75 mg/0.5 00:00: PEN) [place] mL PnIj 00 SUBCUTANEO Medica l USLY EVERY Branch WEEK amLODIPine amLODIPine No 1{table amLODIPine Besylate 5 Besylate 5 9-08 t} Besylate 5 MG MG 00:00: MG 00 amLODIPine amLODIPine No 1{table amLODIPine Besylate 5 Besylate 5 9-08 t} Besylate 5 MG MG 00:00: MG 00 amLODIPine amLODIPine No 1{table amLODIPine Besylate 5 Besylate 5 9-08 t} Besylate 5 MG MG 00:00: MG 00 amLODIPine amLODIPine No 1{table amLODIPine Besylate 5 Besylate 5 - t} Besylate 5 MG MG 00:00: MG 00 amLODIPine amLODIPine No 1{table amLODIPine Besylate 5 Besylate 5 - t} Besylate 5 MG MG 00:00: MG 00 amLODIPine amLODIPine No 1{table amLODIPine Besylate 5 Besylate 5 11-15 t} Besylate 5 MG MG 00:00: MG 00 mirabegron 2021- No 50mg Take 50 mg Univers (MYRBETRIQ) 10-30 by mouth ity of 50 mg 19:09: 00:00 daily. [place] tablet 35 :00 [facility] mirabegron 2021- No 50mg Take 50 mg Univers (MYRBETRIQ) 10-30 by mouth ity of 50 mg 19:09: 00:00 daily. [place] tablet 35 :00 [facility] Insulin 2021- No 68U inject 68 Univ [...] unit/mL scale (3 mL) injection insulin Yes [id number] 80U inject 80 Univers glargine 8-23 Units ity of U-300 conc 00:00: [place] (TOUJEO MAX 00 skin Medical U-300 daily. Branch [facility]) E11.65 300 unit/mL (3 mL) InPn dulaglutide Yes [id number] .75mg inject 1 Univers (TRULICITY) - Pen under ity of 0.75 mg/0.5 00:00: the skin [place] mL PnIj 00 weekly. Medical Branch metformin 2021-0 Yes [id number] 750mg Take 1 Univers ER 750 mg 8-23 tablet by ity o f 24 hr 00:00: mouth in [place] tablet 00 the Medical morning Branch and 1 tablet in the evening. Take with meals. empaglifloz 2021-0 Yes [id number] 25mg Take 1 Univers in 8-23 tablet by ity of (JARDIANCE) 00:00: mouth [place] 25 mg Tab 00 every Medical morning. Branch insulin 2021-0 Yes [id number] 80U inject 80 Univers glargine 8-23 Units ity of U-300 conc 00:00: [place] (TOUJEO MAX 00 skin Medical U-300 daily. [facility]) E11.65 300 unit/mL (3 mL) InPn dulaglutide 0 Yes [id number] .75mg inject 1 Univers (TRULICITY) 8-23 Pen under ity of 0.75 mg/0.5 00:00: the skin [place] mL PnIj 00 weekly. Medical Branch metformin 2021-0 Yes [id number] 750mg Take 1 Univers ER 750 mg 8-23 tablet by ity o f 24 hr 00:00: mouth in [place] tablet 00 the Medical morning Branch and 1 tablet in the evening. Take with meals. empaglifloz 2021-0 Yes [id number] 25mg Take 1 Univers in 8-23 tablet by ity of (JARDIANCE) 00:00: mouth [place] 25 mg Tab 00 every Medical morning. Branch insulin 2021-0 Yes [id number] 80U inject 80 Univers glargine 8-23 Units ity of U-300 conc 00:00: [place] (TOUJEO MAX 00 skin Medical U-300 daily. [place] [facility] E11.65 300 unit/mL (3 mL) InPn dulaglutide 2021-0 Yes [id number] .75mg inject 1 Univers (TRULICITY) 8-23 Pen under ity of 0.75 mg/0.5 00:00: the [place] mL PnIj 00 weekly. Medical Branch metformin 2021-0 Yes [id number] 750mg Take 1 Univers ER 750 mg 8-23 tablet by ity o f 24 hr 00:00: mouth in [place] tablet 00 the Medical morning Branch and 1 tablet in the evening. Take with meals. empaglifloz 2022-0 Yes [id number] 25mg Take 1 Univers in 8-23 tablet by ity of (JARDIANCE) 00:00: mouth [place] 25 mg Tab 00 every Medical morning. Branch insulin 2021-0 Yes [id number] 80U inject 80 Univers glargine 8-23 Units ity of U-300 conc 00:00: [place] (TOUJEO MAX 00 skin Medical U-300 daily. [facility]) E11.65 300 unit/mL (3 mL) InPn dulaglutide 2021-0 Yes [id number] .75mg inject 1 Univers (TRULICITY) 8-23 Pen under ity of 0.75 mg/0.5 00:00: the skin [place] mL PnIj 00 weekly. Medical Branch metformin 2021-0 Yes [id number] 750mg Take 1 Univers ER 750 mg 8-23 tablet by ity o f 24 hr 00:00: mouth in [place] tablet 00 the Medical morning Branch and 1 tablet in the evening. Take with meals. empaglifloz 2-0 Yes [id number] 25mg Take 1 Univers in 8-23 tablet by ity of (JARDIANCE) 00:00: mouth [place] 25 mg Tab 00 every Medical morning. Branch insulin 2021-0 Yes [id number] 80U inject 80 Univers glargine 8-23 Units ity of U-300 conc 00:00: [place] (TOUJEO MAX 00 skin Medical U-300 daily. [facility]) E11.65 300 unit/mL (3 mL) InPn dulaglutide 2021-0 Yes [id number] .75mg inject 1 Univers (TRULICITY) 8-23 Pen under ity of 0.75 mg/0.5 00:00: the skin [place] mL PnIj 00 weekly. Medical Branch metformin 2-0 Yes [id number] 750mg Take 1 Univers ER 750 mg 8-23 tablet by ity o f 24 hr 00:00: mouth in [place] tablet 00 the Medical morning Branch and 1 tablet in the evening. Take with meals. empaglifloz 2022-0 Yes [id number] 25mg Take 1 Univers in 8-23 tablet by ity of (JARDIANCE) 00:00: mouth [place] 25 mg Tab 00 every Medical morning. Branch insulin 2021-0 Yes [id number] 80U inject 80 Univers glargine 8-23 Units ity of U-300 conc 00:00: under the [place] (TOUJEO MAX 00 skin Medical U-300 daily. [facility]) E11.65 300 unit/mL (3 mL) InPn dulaglutide 2021-0 Yes [id number] .75mg inject 1 Univers (TRULICITY) 8-23 Pen under ity of 0.75 mg/0.5 00:00: the skin [place] mL PnIj 00 weekly. Medical Branch metformin 2021-0 Yes [id number] 750mg Take 1 Univers ER 750 mg 8-23 tablet by ity o f 24 hr 00:00: mouth in [place] tablet 00 the Medical morning Branch and 1 tablet in the evening. Take with meals. empaglifloz 2021-0 Yes [id number] 25mg Take 1 Univers in 8-23 tablet by ity of (JARDIANCE) 00:00: mouth [place] 25 mg Tab 00 every Medical morning. Branch insulin 2021-0 Yes [id number] 80U inject 80 Univers glargine 8-23 Units ity of U-300 conc 00:00: under the [place] (TOUJEO MAX 00 skin Medical U-300 daily. [facility]) E11.65 300 unit/mL (3 mL) InPn metformin 2021-0 Yes [id number] 750mg Take 1 Univers ER 750 mg 8-23 tablet by ity o f 24 hr 00:00: mouth in [place] tablet 00 the Medical morning Branch and 1 tablet in the evening. Take with meals. empaglifloz 2-0 Yes [id number] 25mg Take 1 Univers in 8-23 tablet by ity of (JARDIANCE) 00:00: mouth [place] 25 mg Tab 00 every Medical morning. Branch empaglifloz 2-0 Yes [id number] 25mg Take 1 Univers in 8-23 tablet by ity of (JARDIANCE) 00:00: mouth [place] 25 mg Tab 00 every Medical morning. Branch empaglifloz 2-0 Yes [id number] 25mg Take 1 Univers in 8-23 tablet by ity of (JARDIANCE) 00:00: mouth [place] 25 mg Tab 00 every Medical morning. Branch empaglifloz 0 Yes [id number] 25mg Take 1 Univers in 8-23 tablet by ity of (JARDIANCE) 00:00: mouth [place] 25 mg Tab 00 every Medical morning. Branch empaglifloz 0 Yes [id number] 25mg Take 1 Univers in 8-23 tablet by ity of (JARDIANCE) 00:00: mouth [place] 25 mg Tab 00 every Medical morning. Branch empaglifloz 0 Yes [id number] 25mg Take 1 Univers in 8-23 tablet by ity of (JARDIANCE) 00:00: mouth [place] 25 mg Tab 00 every Medical morning. Branch insulin Yes [id number] 80U inject 80 Univers glargine 8-23 Units ity of U-300 conc 00:00: under the [place] (TOUJEO MAX 00 skin Medical U-300 daily. [facility]) E11.65 300 unit/mL (3 mL) InPn dulaglutide Yes [id number] .75mg inject 1 Univers (TRULICITY) 8-23 Pen under ity of 0.75 mg/0.5 00:00: the skin [place] mL PnIj 00 weekly. Medical Branch metformin Yes [id number] 750mg Take 1 Univers ER 750 mg 8-23 tablet by ity o f 24 hr 00:00: mouth in [place] tablet 00 the Medical morning Branch and 1 tablet in the evening. Take with meals. empaglifloz Yes [id number] 25mg Take 1 Univers in 8-23 tablet by ity of (JARDIANCE) 00:00: mouth [place] 25 mg Tab 00 every Medical morning. Branch insulin 2022- No [id number] 80U inject 80 Univers glargine 8-01 04-14 Units ity of U-300 conc 00:00: 00:00 [place] the [place] ([place]OUJEO MAX 00 :00 skin Medical U-300 daily. [facility]) E11.65 300 unit/mL (3 mL) InPn metformin 2021-0 2022- No [id number] 750mg Take 1 Univers ER 750 mg 8-01 04-14 tablet by ity of 24 hr 00:00: 00:00 mouth in [place] tablet 00 :00 the Medical morning Branch and 1 tablet in the evening. Take with meals. dulaglutide 3- No [id number] .75mg inject 1 Univers (TRULICITY) 10-30 Pen under it y of 0.75 mg/0.5 00:00: 00:00 [place] mL PnIj 00 :00 weekly. Medical Branch ACCU-CHEK 2021-0 Yes TEST 2 [...] DAILY [place] strip 00 Medical Branch ACCU-CHEK 2-0 Yes TEST 2 Univer s GUIDE TEST 8-13 TIMES ity of STRIPS 00:00: DAILY [place] strip 00 Medical Branch ACCU-CHEK 2022-0 Yes TEST 2 Univer s GUIDE TEST 8-13 TIMES ity of STRIPS 00:00: DAILY [place] [facility] 00 Medical Branch gabapentin 2022-0 Yes Univers 300 mg 8-12 ity of capsule 00:00: [place] [address] Medical Branch gabapentin 2022-0 Yes Univers 300 mg 8-12 ity of capsule 00:00: [place] [address] Medical Branch gabapentin 2022-0 Yes Univers 300 mg 8-12 ity of capsule 00:00: [place] [address] Medical Branch gabapentin 2022-0 Yes Univers 300 mg 8-12 ity of capsule 00:00: [place] [address] Medical Branch gabapentin 2022-0 Yes Univers 300 mg 8-12 ity of capsule 00:00: [place] [address] Medical Branch gabapentin 2022-0 Yes Univers 300 mg 8-12 ity of capsule 00:00: [place] [address] Medical Branch gabapentin 2022-0 Yes Univers 300 mg 8-12 ity of capsule 00:00: [place] [address] Medical Branch gabapentin 2022-0 Yes Univers 300 mg 8-12 ity of capsule 00:00: [place] [address] Medical Branch gabapentin 2022-0 Yes Univers 300 mg 8-12 ity of capsule 00:00: [place] [address] Medical Branch gabapentin 2022-0 Yes Univers 300 mg 8-12 ity of capsule 00:00: [place] [address] Medical Branch gabapentin 2022-0 Yes Univers 300 mg 8-12 ity of capsule 00:00: [place] [address] Medical Branch gabapentin 2022-0 Yes Univers 300 mg 8-12 ity of capsule 00:00: [place] [address] Medical Branch gabapentin 2022-0 Yes Univers 300 mg 8-12 ity of capsule 00:00: [place] [address] Medical Branch Nystatin Nystatin 2022-0 2022- No 1{appli BID Nystatin [id number] 10-18 cation_ [id number] UNIT/GM UNIT/GM 00:00: 00:00 to_affe UNIT/GM 00 :00 cted_ar ea} Mupirocin 2 Mupirocin 2 2021-0 2- No TID Mupirocin % % 10-18 2 % 00:00: 00:00 00 :00 Nystatin Nystatin 2022-0 2022- No 1{appli BID Nystatin [id number] 10-18 cation_ [id number] UNIT/GM UNIT/GM 00:00: 00:00 to_affe UNIT/GM 00 :00 cted_ar ea} Mupirocin 2 Mupirocin 2 2021- No TID Mupirocin % % 10-18 2 % 00:00: 00:00 00 :00 Nystatin Nystatin 2021-0 2- No 1{appli BID Nystatin [id number] 10-18 cation_ [id number] UNIT/GM UNIT/GM 00:00: 00:00 to_affe UNIT/GM 00 :00 cted_ar ea} Mupirocin 2 Mupirocin 2 0 2021- No TID Mupirocin % % 10-18 2 % 00:00: 00:00 00 :00 JANUMET 2021-0 202- No Univers 50-1,000 mg 09-29 ity of per tablet 00:00: 00:00 [place] 00 :00 Medical Branch JANUMET 2021-0 2021- No Univers 50-1,000 mg 09-29 ity of per tablet 00:00: 00:00 [place] 00 :00 Medical Branch losartan 50 2-0 Yes Univer s mg tablet 09-14 ity of 00:00: [place] [address] Medical Branch losartan 50 2-0 Yes Univer s mg tablet 09-14 ity of 00:00: [place] 00 Medical Branch losartan 50 2022-0 Yes Univer s mg tablet 09-14 ity of 00:00: [place] [address] Medical Branch losartan 50 2022-0 Yes Univer s mg tablet 09-14 ity of 00:00: [place] 00 Medical Branch losartan 50 2022-0 Yes Univer s mg tablet 09-14 ity of 00:00: [place] 00 Medical Branch losartan 50 2022-0 Yes Univer s mg tablet 09-14 ity of 00:00: [place] 00 Medical Branch losartan 50 2022-0 Yes Univer s mg tablet 09-14 ity of 00:00: [place] 00 Medical Branch losartan 50 2022-0 Yes Univer s mg tablet 09-14 ity of 00:00: [place] 00 Medical Branch losartan 50 2022-0 Yes Univer s mg tablet 09-14 ity of 00:00: [place] 00 Medical Branch losartan 50 2022-0 Yes Univer s mg tablet 7-08 ity of 00:00: [place] 00 Medical Branch losartan 50 2021-0 Yes Univer s mg tablet 7-08 ity of 00:00: Medical Branch losartan 50 2021-0 Yes Univer s mg tablet 7-08 ity of 00:00: Medical Branch losartan 50 2021-0 Yes Univer s mg tablet 7-08 ity of 00:00: Medical Branch Losartan Losartan 2021-0 No 1{table [...] MG 00:00: 50 [place] 00 Pantoprazol Pantoprazol 2021-0 No 1{table [...] by mouth ity of tablet 11:57: daily. [place] [address] Medical Branch benzonatate 0 Yes 100{cap Take 100 Univers 100 mg 2-22 elizabeth} capsules ity of capsule 11:57: by mouth [place] 13 daily. Medical Branch vortioxetin Yes 20mg Take 20 mg Univers e 2-22 by mouth ity of ([place] 11:57[place] 20 mg Tab Medical Branch ursodioL Yes 250mg Take 250 Univ ers 250 mg 2-22 mg by ity of tablet 11:57: mouth [place] 13 daily. Medical Branch pantoprazol Yes 40mg Take 40 mg Univers e 40 mg EC 2-22 by mouth ity o f tablet 11:57: daily. [place] [address] Medical Branch levothyroxi 0 Yes 75ug Take 75 Uni vers ne 75 mcg 2-22 mcg by ity of tablet 11:57: mouth [place] 13 every Medical morning. Branch busPIRone Yes 15mg Take 15 mg Un andre 15 mg 2-22 by mouth ity of tablet 11:57: daily. [place] [address] Medical Branch cetirizine 0 Yes 10mg Take 10 mg U nivers 10 mg 2-22 by mouth ity of tablet 11:57: daily. [address] Branch pravastatin 0 Yes 20mg Take 20 mg Univers 20 mg 2-22 by mouth ity of tablet 11:57: daily. [address] Branch benzonatate 2022-0 Yes 100{cap Take 100 Univers [...] mouth ity o f tablet 11:57: daily. [place] 13 Medical Branch levothyroxi 0 Yes 75ug Take 75 Uni vers ne 75 mcg 2-22 mcg by ity of tablet 11:57: mouth [place] 13 every Medical morning. Branch busPIRone Yes 15mg Take 15 mg Un andre 15 mg 2-22 by mouth ity of tablet 11:57: daily. [place] 13 Medical Branch cetirizine 0 Yes 10mg Take 10 mg U nivers 10 mg 2-22 by mouth ity of tablet 11:57: daily. [place] 13 Medical Branch pravastatin 0 Yes 20mg Take 20 mg Univers 20 mg 2-22 by mouth ity of tablet 11:57: daily. [place] 13 Medical Branch benzonatate 0 Yes 100{cap Take [...] mouth ity o f tablet 11:57: daily. [place] 13 Medical Branch levothyroxi 0 Yes 75ug Take 75 Uni vers ne 75 mcg 2-22 mcg by ity of tablet 11:57: mouth [place] 13 every Medical morning. Branch busPIRone 0 Yes 15mg Take 15 mg Un andre 15 mg 2-22 by mouth ity of tablet 11:57: daily. [address] Branch cetirizine 0 Yes 10mg Take 10 mg U nivers 10 mg 2-22 by mouth ity of tablet 11:57: daily. 44 [address] [facility] pravastatin 0 Yes 20mg Take 20 mg Univers 20 mg 2-22 by mouth ity of tablet 11:57: daily. [place] [address] [facility] Branch benzonatate 0 Yes 100{cap Take [...] mouth ity o f tablet 11:57: daily. [address] Branch levothyroxi 0 Yes 75ug Take 75 Uni vers ne 75 mcg 2-22 mcg by ity of tablet 11:57: mouth [place] 13 every Medical morning. Branch busPIRone Yes 15mg Take 15 mg Un andre 15 mg 2-22 by mouth ity of tablet 11:57: daily. [address] cetirizine 0 Yes 10mg Take 10 mg U nivers 10 mg 2-22 by mouth ity of tablet 11:57: daily. [address] pravastatin 0 Yes 20mg Take 20 mg Univers 20 mg 2-22 by mouth ity of tablet 11:57: daily. [address] benzonatate 0 Yes 100{cap Take 100 [...] mouth ity o f tablet 11:57: daily. [place] [address] [facility] Branch levothyroxi 0 Yes 75ug Take 75 Uni vers ne 75 mcg 2-22 mcg by ity of tablet 11:57: mouth [place] 13 every Medical morning. Branch busPIRone 0 Yes 15mg Take 15 mg Un andre 15 mg 2-22 by mouth ity of tablet 11:57: daily. [place] [address] [facility] Branch cetirizine 0 Yes 10mg Take 10 mg U nivers 10 mg 2-22 by mouth ity of tablet 11:57: daily. [address] Branch pravastatin 0 Yes 20mg Take 20 mg [facility] 20 mg 2-22 by mouth ity of tablet 11:57: daily. [place] [address] [facility] Branch benzonatate 0 Yes 100{cap Take 100 Univers 100 mg 2-22 elizabeth} capsules ity of capsule 11:57: by mouth [place] 13 daily. Medical Branch vortioxetin 0 Yes 20mg Take 20 mg Univers e 2-22 by mouth ity of ([place] 20 [place] [facility] ursodioL Yes 250mg Take 250 Univ ers 250 mg 2-22 mg by ity of tablet 11:57: mouth [place] 13 daily. Medical Branch pantoprazol 0 Yes 40mg Take 40 mg Univers e 40 mg EC 2-22 by mouth ity o f tablet 11:57: daily. [place] [address] [facility] Branch levothyroxi 0 Yes 75ug Take 75 Uni vers ne 75 mcg 2-22 mcg by ity of tablet 11:57: mouth [place] 13 every Medical morning. Branch busPIRone 0 Yes 15mg Take 15 mg Un andre 15 mg 2-22 by mouth ity of tablet 11:57: daily. [place] [address] [facility] Branch cetirizine 0 Yes 10mg Take 10 mg U nivers 10 mg 2-22 by mouth ity of tablet 11:57: daily. [place] 13 [facility] Branch pravastatin Yes 20mg Take 20 mg Univers 20 mg 2-22 by mouth ity of tablet 11:57: daily. [place] [address] [facility] Branch benzonatate 0 Yes 100{cap Take [...] mouth ity o f tablet 11:57: daily. [place] [address] [facility] Branch levothyroxi Yes 75ug Take 75 Uni vers ne 75 mcg 2-22 mcg by ity of tablet 11:57: mouth [place] 13 every Medical morning. Branch busPIRone 0 Yes 15mg Take 15 mg Un andre 15 mg 2-22 by mouth ity of tablet 11:57: daily. [place] [address] [facility] Branch cetirizine 0 Yes 10mg Take 10 mg U nivers 10 mg 2-22 by mouth ity of tablet 11:57: daily. [place] [address] [facility] Branch pravastatin Yes 20mg Take 20 mg Univers 20 mg 2-22 by mouth ity of tablet 11:57: daily. [place] [address] [facility] Branch benzonatate 0 Yes 100{cap Take [...] mouth ity o f tablet 11:57: daily. [place] 13 [facility] Branch levothyroxi Yes 75ug Take 75 Uni vers ne 75 mcg 2-22 mcg by ity of tablet 11:57: mouth [place] 13 every Medical morning. Branch busPIRone 0 Yes 15mg Take 15 mg Un andre 15 mg 2-22 by mouth ity of tablet 11:57: daily. [address] cetirizine 0 Yes 10mg Take 10 mg U nivers 10 mg 2-22 by mouth ity of tablet 11:57: daily. [address] pravastatin 0 Yes 20mg Take 20 mg Univers 20 mg 2-22 by mouth ity of tablet 11:57: daily. [address] benzonatate 0 Yes 100{cap Take 100 Univers 100 mg 2-22 elizabeth} capsules ity of capsule 11:57: by mouth [place] 13 daily. [facility] Branch vortioxetin 0 Yes 20mg Take 20 mg Univers e 2-22 by mouth ity of [place] [address] ursodioL 0 Yes 250mg Take 250 Univ ers 250 mg 2-22 mg by ity of tablet 11:57: mouth [place] 13 daily. [facility] Branch pantoprazol 0 Yes 40mg Take 40 mg Univers e 40 mg EC 2-22 by mouth ity o f tablet 11:57: daily. [address] levothyroxi Yes 75ug Take 75 Uni vers ne 75 mcg 2-22 mcg by ity of tablet 11:57: mouth [place] 13 every Medical morning. Branch busPIRone Yes 15mg Take 15 mg Un andre 15 mg 2-22 by mouth ity of tablet 11:57: daily. [address] cetirizine 0 Yes 10mg Take 10 mg U nivers 10 mg 2-22 by mouth ity of tablet 11:57: daily. [address] pravastatin 0 Yes 20mg Take 20 mg Univers 20 mg 2-22 by mouth ity of tablet 11:57: daily. [address] benzonatate 0 Yes 100{cap Take 100 Univers 100 mg 2-22 elizabeth} capsules ity of capsule 11:57: by mouth [place] 13 daily. [facility] Branch vortioxetin Yes 20mg Take 20 mg [...] mouth ity o f tablet 11:57: daily. [place] [address] [facility] Branch levothyroxi 0 Yes 75ug Take 75 Uni vers ne 75 mcg 2-22 mcg by ity of tablet 11:57: mouth [place] 13 every Medical morning. Branch busPIRone 0 Yes 15mg Take 15 mg Un andre 15 mg 2-22 by mouth ity of tablet 11:57: daily. [place] [address] [facility] Branch cetirizine 0 Yes 10mg Take 10 mg U nivers 10 mg 2-22 by mouth ity of tablet 11:57: daily. [place] [address] [facility] Branch pravastatin 0 Yes 20mg Take 20 mg Univers 20 mg 2-22 by mouth ity of tablet 11:57: daily. [place] [address] [facility] Branch benzonatate 0 Yes 100{cap Take [...] mouth ity o f tablet 11:57: daily. [place] [address] [facility] Branch levothyroxi 0 Yes 75ug Take 75 Uni vers ne 75 mcg 2-22 mcg by ity of tablet 11:57: mouth [place] 13 every Medical morning. Branch busPIRone 0 Yes 15mg Take 15 mg Un andre 15 mg 2-22 by mouth ity of tablet 11:57: daily. [place] [address] [facility] Branch cetirizine 0 Yes 10mg Take 10 mg U nivers 10 mg 2-22 by mouth ity of tablet 11:57: daily. [place] [address] [facility] Branch pravastatin 0 Yes 20mg Take 20 mg Univers 20 mg 2-22 by mouth ity of tablet 11:57: daily. [place] [address] [facility] Branch benzonatate 0 Yes 100{cap Take [...] mouth ity o f tablet 11:57: daily. [place] [address] [facility] Branch levothyroxi 0 Yes 75ug Take 75 Uni vers ne 75 mcg 2-22 mcg by ity of tablet 11:57: mouth [place] 13 every Medical morning. Branch busPIRone 0 Yes 15mg Take 15 mg Un andre 15 mg 2-22 by mouth ity of tablet 11:57: daily. [place] [address] [facility] Branch cetirizine 0 Yes 10mg Take 10 mg U nivers 10 mg 2-22 by mouth ity of tablet 11:57: daily. [address] Branch pravastatin 0 Yes 20mg Take 20 mg Univers 20 mg 2-22 by mouth ity of tablet 11:57: daily. [place] [address] [facility] Branch benzonatate 0 Yes 100{cap Take [...] mouth ity o f tablet 11:57: daily. [address] Branch levothyroxi Yes 75ug Take 75 Uni vers ne 75 mcg 2-22 mcg by ity of tablet 11:57: mouth [place] [address] every Medical morning. Branch busPIRone Yes 15mg Take 15 mg Un andre 15 mg 2-22 by mouth ity of tablet 11:57: daily. [address] cetirizine Yes 10mg Take 10 mg U nivers 10 mg 2-22 by mouth ity of tablet 11:57: daily. [address] Varenicline Varenicline 2021- No QD Vareniclin [...] TID Benzonatat 100 MG 100 MG 0-15 -29 le_as_n e 100 MG 00:00: 00:00 eeded} 00 :00 Benzonatate Benzonatate 2020-03- No 1{capsu TID Benzonatat 100 MG 100 MG 0-15 -29 le_as_n e 100 MG 00:00: 00:00 eeded} 00 :00 Benzonatate Benzonatate 2020-03- No 1{capsu TID Benzonatat 100 MG 100 MG 0-15 - le_as_n e 100 MG 00:00: 00:00 eeded} 00 :00 Benzonatate Benzonatate 2020-03- No 1{capsu TID Benzonatat 100 MG 100 MG 0-15 - le_as_n e 100 MG 00:00: 00:00 eeded} 00 :00 Benzonatate Benzonatate 2020-03- No 1{capsu TID Benzonatat 100 MG 100 MG 0-15 -29 le_as_n e 100 MG 00:00: 00:00 eeded} 00 :00 Azithromyci Azithromyci 2020-03- No QD Azithromyc n 250 MG n 250 MG 0-15 10-20 in 250 MG 00:00: 00:00 00 :00 Azithromyci Azithromyci 2020-03- No QD Azithromyc n 250 MG n 250 MG 0-15 10-20 in 250 MG 00:00: 00:00 00 :00 Azithromyci Azithromyci 2020-2020- No QD Azithromyc n 250 MG n 250 MG 0-15 10-20 in 250 MG 00:00: 00:00 00 :00 Azithromyci Azithromyci 2020-2020- No QD Azithromyc n 250 MG n 250 MG 0-15 10-20 in 250 MG 00:00: 00:00 00 :00 FreeStyle FreeStyle 2021-0 No FreeStyle Servando 14 Servando 14 1-29 Servando 14 Day Sensor Day Sensor 00:00: Day Sensor - - 00 - FreeStyle FreeStyle 1-0 No QD FreeStyle Servando 14 Servando 14 1-29 Servando 14 Day [place] Day [place]averly 00:00: Day [place] - - 00 - FreeStyle FreeStyle 1-0 No FreeStyle Servando 14 Servando 14 1-29 Servando 14 Day Sensor Day Sensor 00:00: Day Sensor - - 00 - FreeStyle FreeStyle 1-0 No QD FreeStyle Servando 14 Servando 14 1-29 Servando 14 Day [place] Day [place] 00:00: Day [place] - - 00 - FreeStyle FreeStyle 1-0 No FreeStyle Servando 14 Servando 14 1-29 Servando 14 Day Sensor Day Sensor 00:00: Day Sensor - - 00 - FreeStyle FreeStyle 1-0 No QD FreeStyle Servando 14 Servando 14 1-29 Servando 14 Day [place] Day [place] 00:00: Day [place] - - 00 - FreeStyle FreeStyle 1-0 No FreeStyle Servando 14 Servando 14 1-29 Servando 14 Day Sensor Day Sensor 00:00: Day Sensor - - 00 - FreeStyle FreeStyle 1-0 No QD FreeStyle Servando 14 Servando 14 1-29 Servando 14 Day [place] Day [place] 00:00: Day [place] - - 00 - FreeStyle FreeStyle 1-0 No FreeStyle Servando 14 Servando 14 1-29 Servando 14 Day Sensor Day Sensor 00:00: Day Sensor - - 00 - FreeStyle FreeStyle 1-0 No QD FreeStyle Servando 14 Servando 14 1-29 Servando 14 Day [place] Day [place] 00:00: Day [place] - - 00 - FreeStyle FreeStyle 2021-0 No QD FreeStyle Servando 14 Servando 14 1-29 Servando 14 Day [place] Day [place] 00:00: Day [place] - - 00 - FreeStyle FreeStyle 2021-0 No FreeStyle Servando 14 Servando 14 1-29 Servando 14 Day Sensor Day Sensor 00:00: Day Sensor - - 00 - FreeStyle FreeStyle 2021-0 No QD FreeStyle Servando 14 Servando 14 1-29 Servando 14 Day [place] Day [place] 00:00: Day [place] - - 00 - FreeStyle FreeStyle 2021-0 No FreeStyle Servando 14 Servando 14 1-29 Servando 14 Day Sensor Day Sensor 00:00: Day Sensor - - 00 - FreeStyle FreeStyle 2021-0 No QD FreeStyle Servando 14 Servando 14 1-29 Servando 14 Day [place] Day [place] 00:00: Day [place] - - 00 - FreeStyle FreeStyle 2021-0 [...] 14 Servando 14 1-29 Servando 14 Day [place] Day [place] 00:00: Day [place] - - 00 - FreeStyle FreeStyle 2021-0 No FreeStyle Servando 14 Servando 14 1-29 Servando 14 Day Sensor Day Sensor 00:00: Day Sensor - - 00 - FreeStyle FreeStyle 2021-0 No QD FreeStyle Servando 14 Servando 14 1-29 Servando 14 Day [place] Day [place] 00:00: Day [place] - - 00 - FreeStyle FreeStyle 2021-0 No FreeStyle Servando 14 Servando 14 1-29 Servando 14 Day Sensor Day Sensor 00:00: Day Sensor - - 00 - FreeStyle FreeStyle 2021-0 No QD FreeStyle Servando 14 Servando 14 1-29 Servando 14 Day [place] Day [place] 00:00: Day [place] - - - Flonase 50 Flonase 50 2019-03 No [...] No 2{spray QD Flonase 50 MCG/ACT MCG/ACT 1-06 _in_eac MCG/ACT 00:00: h_nostr 00 il} Keflex Keflex 2020-0 2020- No Na [place] 1 capsule Common 11-22 Spirit 00:00: 00:00 - [facility] 00 :00 [facility] Bactrim DS Bactrim DS 2020-0 2020- No Na [place] 1 tablet Common 11-22 Spirit 00:00: 00:00 - [facility] 00 :00 [facility] Ursodiol Ursodiol 2020-0 Yes Na Ruelas 1 tablet Common 11-16 with food [facility] 00:00: - [facility] 00 [facility] Triamcinolo Triamcinolo 2020-0 Yes Na [place] 1 Common ne ne 2-14 applicatio [facility] Acetonide Acetonide 00:00: n to - C HI 00 affected [facility] Triamcinolo Triamcinolo 2020-0 No 1{appli BID [...] 00 cted_ar 0.5 % ea} Triamcinolo Triamcinolo 2019- No 1{appli BID Triamcinol ne ne 2-14 cation_ one Acetonide Acetonide 00:00: to_affe Acetonide 0.5 % 0.5 % 00 cted_ar 0.5 % ea} Triamcinolo Triamcinolo 2019- No 1{appli BID Triamcinol ne ne 2-14 cation_ one Acetonide Acetonide 00:00: to_affe Acetonide 0.5 % 0.5 % 00 cted_ar 0.5 % ea} Triamcinolo Triamcinolo 2019-0 No 1{appli BID Triamcinol ne ne 2-14 cation_ one Acetonide Acetonide 00:00: to_affe Acetonide 0.5 % 0.5 % 00 cted_ar 0.5 % ea} Triamcinolo Triamcinolo No 1{appli BID Triamcinol ne ne 2-14 cation_ one Acetonide Acetonide 00:00: to_affe Acetonide 0.5 % 0.5 % 00 cted_ar 0.5 % ea} Triamcinolo Triamcinolo 2019- No 1{appli BID Triamcinol ne ne 2-14 cation_ one Acetonide Acetonide 00:00: to_affe Acetonide 0.5 % 0.5 % 00 cted_ar 0.5 % ea} Triamcinolo Triamcinolo 2019-0 No 1{appli BID Triamcinol ne ne 2-14 cation_ one Acetonide Acetonide 00:00: to_affe Acetonide 0.5 % 0.5 % 00 cted_ar 0.5 % ea} Nebulizer Nebulizer Yes Na [place]uelas as Common Air Air 2-03 directed [facility] Tube/Plugs Tube/Plugs 00:00: - [facility] 00 [facility] Nebulizer Nebulizer No Nebulizer Air Air 2-03 Air Tube/Plugs Tube/Plugs 00:00: Tube/Plugs - - - Nebulizer Nebulizer No Nebulizer Air Air [...] Tube/Plugs 00:00: Tube/Plugs - - 00 - Benzonatate Benzonatate No 1{capsu TID Benzonatat 100 MG 100 MG le_as_n e 100 MG eeded} Aspir-Low Aspir-Low No 1{table QD Aspir-Low 81 MG 81 MG t} 81 MG Multivitami Multivitami No Multivitam n Adult n Adult in Adult metFORMIN metFORMIN No 1{table BID metFORMIN HCl ER 750 HCl ER 750 t} HCl ER 750 MG MG MG Janumet Janumet No Janumet 50-1000 MG 50-1000 MG 50-1000 MG Accu-Chek Accu-Chek No BID Accu-Chek Sarika Plus Sarika Plus Sarika Plus - - - Jardiance Jardiance No 1{table QD Jardiance 25 MG 25 MG t} 25 MG Cetirizine Cetirizine No 1{table QD Cetirizine HCl 10 MG HCl 10 MG t} HCl 10 MG Lantus Lantus No Lantus SoloStar SoloStar SoloStar 100 UNIT/ML 100 UNIT/ML 100 UNIT/ML Fluticasone Fluticasone No Fluticason Propionate Propionate e 50 MCG/ACT 50 MCG/ACT Propionate 50 MCG/ACT Trulicity Trulicity No Trulicity 0.75mg/0.5m 0.75mg/0.5m 0.75mg/0.5 l l ml Myrbetriq Myrbetriq No 1{table QD Myrbetriq 25 MG 25 MG t} 25 MG Albuterol Albuterol No 3{ml_as TID Albuterol Sulfate Sulfate _needed Sulfate (2.5 (2.5 } (2.5 MG/3ML) MG/3ML) MG/3ML) 0.083% 0.083% 0.083% Ursodiol Ursodiol No Ursodiol 250 MG 250 MG 250 MG BD Pen BD Pen No QD BD Pen Needle Janet Needle Janet Needle 2nd Gen 32G 2nd Gen 32G Janet 2nd X 4 MM X 4 MM Gen 32G X 4 MM Gabapentin Gabapentin No Gabapentin 300 MG 300 MG 300 MG Levothyroxi Levothyroxi No Levothyrox ne Sodium ne Sodium ine Sodium 75 MCG 75 MCG 75 MCG Losartan Losartan No 1{table QD Losartan Potassium Potassium t} Potassium 100 MG 100 MG 100 MG Toujeo Toujeo No Toujeo SoloStar SoloStar SoloStar 300 UNIT/ML 300 UNIT/ML 300 UNIT/ML Trintellix Trintellix No Trintellix 20 MG 20 MG 20 MG Pravastatin Pravastatin No Pravastati Sodium 20 Sodium 20 n Sodium MG MG 20 MG busPIRone busPIRone No busPIRone HCl 15 MG HCl 15 MG HCl 15 MG Accu-Chek Accu-Chek No Accu-Chek Softclix Softclix Softclix Lancets - Lancets - Lancets - Vuity 1.25 Vuity 1.25 No 1{drop_ QD Vuity 1.25 % % into_af % fected_ eye} Boric Acid Boric Acid No Boric Acid Vaginal 600 Vaginal 600 Vaginal MG MG 600 MG amLODIPine amLODIPine No amLODIPine Besylate 5 Besylate 5 Besylate 5 MG MG MG Pantoprazol Pantoprazol No 1{table QD Pantoprazo e Sodium 40 e Sodium 40 t} le Sodium MG MG 40 MG Varenicline Varenicline No Vareniclin Tartrate 1 Tartrate 1 e Tartrate MG MG 1 MG Benzonatate Benzonatate No 1{capsu TID Benzonatat 100 MG 100 MG le_as_n e 100 MG eeded} Aspir-Low Aspir-Low No 1{table QD Aspir-Low 81 MG 81 MG t} 81 MG Multivitami Multivitami No Multivitam n Adult n Adult in Adult metFORMIN metFORMIN No 1{table BID metFORMIN HCl ER 750 HCl ER 750 t} HCl ER 750 MG MG MG metFORMIN metFORMIN No 1{table BID metFORMIN HCl ER 750 HCl ER 750 t} HCl ER 750 MG MG MG Multivitami Multivitami No Multivitam n Adult n Adult in Adult Aspir-Low Aspir-Low No 1{table QD Aspir-Low 81 MG 81 MG t} 81 MG Ursodiol Ursodiol No Ursodiol 250 MG 250 MG 250 MG Pravastatin Pravastatin No Pravastati Sodium 20 Sodium 20 n Sodium MG MG 20 MG busPIRone busPIRone No busPIRone HCl 15 MG HCl 15 MG HCl 15 MG Trulicity Trulicity No Trulicity 0.75mg/0.5m 0.75mg/0.5m 0.75mg/0.5 l l ml Pantoprazol Pantoprazol No 1{table QD Pantoprazo e [...] Trintellix 20 MG 20 MG 20 MG Benzonatate Benzonatate No 1{capsu TID Benzonatat 100 MG 100 MG le_as_n e 100 MG eeded} Toujeo Toujeo No Toujeo SoloStar SoloStar SoloStar 300 UNIT/ML 300 UNIT/ML 300 UNIT/ML Levothyroxi Levothyroxi No Levothyrox ne Sodium ne Sodium ine Sodium 75 MCG 75 MCG 75 MCG Losartan Losartan No 1{table QD Losartan Potassium Potassium t} Potassium 100 MG 100 MG 100 MG BD Pen BD Pen No QD BD Pen Needle Janet Needle Janet Needle 2nd Gen 32G 2nd Gen 32G Janet 2nd X 4 MM X 4 MM Gen 32G X 4 MM Gabapentin Gabapentin No Gabapentin 300 MG 300 MG 300 MG Albuterol Albuterol No 3{ml_as TID Albuterol Sulfate Sulfate _needed Sulfate (2.5 (2.5 } (2.5 MG/3ML) MG/3ML) MG/3ML) 0.083% 0.083% 0.083% amLODIPine amLODIPine No amLODIPine Besylate 5 Besylate 5 Besylate 5 MG MG MG Accu-Chek Accu-Chek No Accu-Chek Softclix Softclix [...] Na [place] 1 capsule Common with food [facility] - [facility] Pantoprazol Pantoprazol Yes Na Ruelas TAKE 1 Common e Sodium e Sodium TABLET BY Sp valorie MOUTH - CHI EVERY DAY [facility] Albuterol Albuterol Yes Na Ruelas 3 ml as Common Sulfate Sulfate needed [facility] - [facility] Levothyroxi Levothyroxi Yes Na [place]uelas TAKE 1 Common ne Sodium ne Sodium TABLET BY [employer] MOUTH - CHI EVERY DAY St IN THE MORNING ON Medical AN EMPTY Center STOMACH Marterence Yes Na Ruelas 1 tablet Co mmon with meals [facility] BusPIRone BusPIRone Yes Na Ruelas 1 tablet Common HCl HCl [facility] Ursodiol Ursodiol Yes Na Ruelas as Comm on directed [facility] Gabapentin Gabapentin Yes Na Ruelas 1 capsule Common [facility] Aspir-Low Aspir-Low Yes Na Ruelas 1 tablet Common [facility] Oxybutynin Oxybutynin Yes Na Ruelas 1 tablet Common Chloride Chloride [facility] Trintellix Trintellix Yes Na Ruelas 1 tablet Common [facility] Trintellix Trintellix No Trintellix 20 MG [...] 100 MG le_as_n e 100 MG eeded} busPIRone busPIRone No busPIRone HCl 15 MG HCl 15 MG HCl 15 MG Toujeo Toujeo No Toujeo SoloStar SoloStar SoloStar 300 UNIT/ML 300 UNIT/ML 300 UNIT/ML Accu-Chek Accu-Chek No BID Accu-Chek Sarika Plus Sarika Plus Sarika Plus - - - metFORMIN metFORMIN No 1{table BID metFORMIN HCl ER 750 HCl ER 750 t} HCl ER 750 MG MG MG Aspir-Low Aspir-Low No 1{table QD Aspir-Low 81 MG 81 MG t} 81 MG Levothyroxi Levothyroxi No Levothyrox ne Sodium ne Sodium ine Sodium 75 MCG 75 MCG 75 MCG Multivitami Multivitami No Multivitam n Adult n Adult in Adult Pravastatin Pravastatin No Pravastati Sodium 20 Sodium 20 n Sodium MG MG 20 MG Accu-Chek Accu-Chek No Accu-Chek Softclix Softclix Softclix Lancets - Lancets - Lancets - Janumet Janumet No Janumet 50-1000 MG 50-1000 MG 50-1000 MG Trulicity Trulicity No Trulicity 0.75mg/0.5m 0.75mg/0.5m 0.75mg/0.5 l l ml Losartan Losartan No 1{table QD Losartan Potassium Potassium t} Potassium 100 MG 100 MG 100 MG Trintellix Trintellix No Trintellix 20 MG 20 MG 20 MG Jardiance Jardiance No 1{table QD Jardiance 25 MG 25 MG t} 25 MG Varenicline Varenicline No Vareniclin Tartrate 1 Tartrate 1 e Tartrate MG MG 1 MG Cetirizine Cetirizine No 1{table QD Cetirizine [...] Ursodiol 250 MG 250 MG 250 MG Fluticasone Fluticasone No Fluticason Propionate Propionate e 50 MCG/ACT 50 MCG/ACT Propionate 50 MCG/ACT BD Pen BD Pen No QD BD Pen Needle Janet Needle Janet Needle 2nd Gen 32G 2nd Gen 32G Janet 2nd X 4 MM X 4 MM Gen 32G X 4 MM Myrbetriq Myrbetriq No 1{table QD Myrbetriq 25 MG 25 MG t} 25 MG Pantoprazol Pantoprazol No 1{table QD Pantoprazo e Sodium 40 e Sodium 40 t} le Sodium MG MG 40 MG Toujeo Toujeo No Toujeo SoloStar SoloStar SoloStar 300 UNIT/ML 300 UNIT/ML 300 UNIT/ML Accu-Chek Accu-Chek No BID Accu-Chek Sarika Plus Sarika Plus Sarika Plus - - - Gabapentin Gabapentin No Gabapentin 300 MG 300 MG 300 MG Cetirizine Cetirizine No 1{table QD Cetirizine HCl 10 MG HCl 10 MG t} HCl 10 MG Aspir-Low Aspir-Low No 1{table QD Aspir-Low 81 MG 81 MG t} 81 MG Benzonatate Benzonatate No 1{capsu TID Benzonatat 100 MG 100 MG le_as_n e 100 MG eeded} Levothyroxi Levothyroxi No Levothyrox ne Sodium ne Sodium ine Sodium 75 MCG 75 MCG 75 MCG metFORMIN metFORMIN No 1{table BID metFORMIN HCl ER 750 HCl ER 750 t} HCl ER 750 MG MG MG Pravastatin Pravastatin No Pravastati Sodium 20 Sodium 20 n Sodium MG MG 20 MG Accu-Chek Accu-Chek No Accu-Chek Softclix Softclix Softclix Lancets - Lancets - Lancets - Janumet Janumet No Janumet 50-1000 MG 50-1000 MG 50-1000 MG Jardiance Jardiance No 1{table QD Jardiance 25 MG 25 MG t} 25 MG Varenicline Varenicline No Vareniclin Tartrate 1 Tartrate 1 e Tartrate MG MG 1 MG Trintellix Trintellix No Trintellix 20 MG 20 MG 20 MG busPIRone busPIRone No busPIRone HCl 15 MG HCl 15 MG HCl 15 MG Multivitami Multivitami No Multivitam n Adult n Adult in Adult Losartan Losartan No 1{table QD Losartan Potassium Potassium t} Potassium 100 MG 100 MG 100 MG Albuterol Albuterol No 3{ml_as TID Albuterol Sulfate Sulfate _needed Sulfate (2.5 (2.5 } (2.5 MG/3ML) MG/3ML) MG/3ML) 0.083% 0.083% 0.083% Trulicity Trulicity No Trulicity 0.75mg/0.5m 0.75mg/0.5m 0.75mg/0.5 l l ml Lantus Lantus No Lantus SoloStar SoloStar SoloStar 100 UNIT/ML 100 UNIT/ML 100 UNIT/ML Ursodiol Ursodiol No Ursodiol 250 MG 250 MG 250 MG Fluticasone Fluticasone No Fluticason Propionate Propionate e 50 MCG/ACT 50 MCG/ACT Propionate 50 MCG/ACT BD Pen BD Pen No QD BD Pen Needle Janet Needle Janet Needle 2nd Gen 32G 2nd Gen 32G Janet 2nd X 4 MM X 4 MM Gen 32G X 4 MM Myrbetriq Myrbetriq No 1{table QD Myrbetriq 25 MG 25 MG t} 25 MG Pantoprazol Pantoprazol No 1{table QD Pantoprazo e Sodium 40 e Sodium 40 t} le Sodium MG MG 40 MG Toujeo Toujeo No Toujeo SoloStar SoloStar SoloStar 300 UNIT/ML 300 UNIT/ML 300 UNIT/ML Accu-Chek Accu-Chek No BID Accu-Chek Sarika Plus Sarika Plus Sarika Plus - - - Gabapentin Gabapentin No Gabapentin 300 MG 300 MG 300 MG Cetirizine Cetirizine No 1{table QD Cetirizine HCl 10 MG HCl 10 MG t} HCl 10 MG Aspir-Low Aspir-Low No 1{table QD Aspir-Low 81 MG 81 MG t} 81 MG Pravastatin Pravastatin No Pravastati Sodium 20 Sodium 20 n Sodium MG MG 20 MG Benzonatate Benzonatate No 1{capsu TID Benzonatat 100 MG 100 MG le_as_n e 100 MG eeded} Levothyroxi Levothyroxi No Levothyrox ne Sodium ne Sodium ine Sodium 75 MCG 75 MCG 75 MCG metFORMIN metFORMIN No 1{table BID metFORMIN HCl ER 750 HCl ER 750 t} HCl ER 750 MG MG MG amLODIPine amLODIPine No amLODIPine Besylate 5 Besylate 5 Besylate 5 MG MG MG Accu-Chek Accu-Chek No Accu-Chek Softclix Softclix Softclix Lancets - Lancets - Lancets - Janumet Janumet No Janumet 50-1000 MG 50-1000 MG 50-1000 MG Jardiance Jardiance No 1{table QD Jardiance 25 MG 25 MG t} 25 MG Varenicline Varenicline No Vareniclin Tartrate 1 Tartrate 1 e Tartrate MG MG 1 MG Trintellix Trintellix No Trintellix 20 MG 20 MG 20 MG busPIRone busPIRone No busPIRone HCl 15 MG HCl 15 MG HCl 15 MG Multivitami Multivitami No Multivitam n Adult n Adult in Adult Losartan Losartan No 1{table QD Losartan Potassium Potassium t} Potassium 100 MG 100 MG 100 MG Albuterol Albuterol No 3{ml_as TID Albuterol Sulfate Sulfate _needed Sulfate (2.5 (2.5 } (2.5 MG/3ML) MG/3ML) MG/3ML) 0.083% 0.083% 0.083% Trulicity Trulicity No Trulicity 0.75mg/0.5m 0.75mg/0.5m 0.75mg/0.5 l l ml Lantus Lantus No Lantus SoloStar SoloStar SoloStar 100 UNIT/ML 100 UNIT/ML 100 UNIT/ML Ursodiol Ursodiol No Ursodiol 250 MG 250 MG 250 MG Fluticasone Fluticasone No Fluticason Propionate Propionate e 50 MCG/ACT 50 MCG/ACT Propionate 50 MCG/ACT BD Pen BD Pen No QD BD Pen Needle Janet Needle Janet Needle 2nd Gen 32G 2nd Gen 32G Janet 2nd X 4 MM X 4 MM Gen 32G X 4 MM Myrbetriq Myrbetriq No 1{table QD Myrbetriq 25 MG 25 MG t} 25 MG Pantoprazol Pantoprazol No 1{table QD Pantoprazo e Sodium 40 e Sodium 40 t} le Sodium MG MG 40 MG Janumet Janumet No Janumet 50-1000 MG 50-1000 MG 50-1000 MG Accu-Chek Accu-Chek No BID Accu-Chek Sarika Plus Sarika Plus Sarika Plus - - - Jardiance Jardiance No 1{table QD Jardiance 25 MG 25 MG t} 25 MG Cetirizine Cetirizine No 1{table QD Cetirizine HCl 10 MG HCl 10 MG t} HCl 10 MG Lantus Lantus No Lantus SoloStar SoloStar SoloStar 100 UNIT/ML 100 UNIT/ML 100 UNIT/ML Fluticasone Fluticasone No Fluticason Propionate Propionate e 50 MCG/ACT 50 MCG/ACT Propionate 50 MCG/ACT Trulicity Trulicity No Trulicity 0.75mg/0.5m 0.75mg/0.5m 0.75mg/0.5 l l ml Myrbetriq Myrbetriq No 1{table QD Myrbetriq 25 MG 25 MG t} 25 MG Albuterol Albuterol No 3{ml_as TID Albuterol Sulfate Sulfate _needed Sulfate (2.5 (2.5 } (2.5 MG/3ML) MG/3ML) MG/3ML) 0.083% 0.083% 0.083% Ursodiol Ursodiol No Ursodiol 250 MG 250 MG 250 MG BD Pen BD Pen No QD BD Pen Needle Janet Needle Janet Needle 2nd Gen 32G 2nd Gen 32G Janet 2nd X 4 MM X 4 MM Gen 32G X 4 MM Gabapentin Gabapentin No Gabapentin 300 MG 300 MG 300 MG Levothyroxi Levothyroxi No Levothyrox ne Sodium ne Sodium ine Sodium 75 MCG 75 MCG 75 MCG Losartan Losartan No 1{table QD Losartan Potassium Potassium t} Potassium 100 MG 100 MG 100 MG Toujeo Toujeo No Toujeo SoloStar SoloStar SoloStar 300 UNIT/ML 300 UNIT/ML 300 UNIT/ML Trintellix Trintellix No Trintellix 20 MG 20 MG 20 MG Pravastatin Pravastatin No Pravastati Sodium 20 Sodium 20 n Sodium MG MG 20 MG busPIRone busPIRone No busPIRone HCl 15 MG HCl 15 MG HCl 15 MG Accu-Chek Accu-Chek No Accu-Chek Softclix Softclix Softclix Lancets - Lancets - Lancets - Vuity 1.25 Vuity 1.25 No 1{drop_ QD Vuity 1.25 % % into_af % fected_ eye} Boric Acid Boric Acid No Boric Acid Vaginal 600 Vaginal 600 Vaginal MG MG 600 MG amLODIPine amLODIPine No amLODIPine Besylate 5 Besylate 5 Besylate 5 MG MG MG Pantoprazol Pantoprazol No 1{table QD Pantoprazo e Sodium 40 e Sodium 40 t} le Sodium MG MG 40 MG Varenicline Varenicline No Vareniclin Tartrate 1 Tartrate 1 e Tartrate MG MG 1 MG Varenicline Varenicline No Vareniclin Tartrate 1 Tartrate 1 05-03 e Tartrate MG MG 00:00 1 MG :00 Immunizations Ordered Immunization Filled Immunization Date Status Commen ts Source Name Name Flucelvax - single Flucelvax - single 2022-02-14 [facility] - [facility] Flucelvax - single Flucelvax - single 2022-02-14 [facility]pleted [facility] dose syringe dose syringe 16:15:00 - [facility] Flucelvax - single Flucelvax - single 2022-02-14 [facility]pleted [facility] dose syringe dose syringe 16:15:00 - [facility] Afluria Afluria 2021-01-01 [facility]pleted [facility] 14:46:[facility] - [facility] Afluria Afluria 2021-01-01 [facility] 14:46:[facility] - [facility] Afluria Afluria 2021-01-01 [facility] 14:46:[facility] - [facility] Afluria Afluria 2021-01-01 [facility] 14:46:[facility] - [facility] Afluria Afluria 2021-01-01 [facility] 14:46:[facility] - [facility] Afluria Afluria 2021-01-01 [facility] 14:46:[facility] - [facility] Afluria Afluria 2021-01-01 [facility] 14:[facility] - [facility] Afluria Afluria 2021-01-01 [facility]pleted [facility] 14:46:[facility] - [facility] Afluria Afluria 2021-01-01 [facility]pleted [facility] 14:46:[facility] - [facility] Afluria Afluria 2021-01-01 [facility]pleted [facility] 14:46:[facility] - [facility] Afluria Afluria 2021-01-01 [facility]pleted [facility] 14:46:[facility] - [facility] Afluria Afluria 2021-01-01 [facility]pleted [facility] 14:46:[facility] - [facility] Afluria Afluria 2021-01-01 [facility]pleted [facility] 14:46:[facility] - [facility] Afluria Afluria 2021-01-01 [facility]pleted [facility] 14:46:[facility] - [facility] Afluria Afluria 2021-01-01 [facility]pleted [facility] 14:46:[facility] - [facility] Afluria Afluria 2021-01-01 [facility] 14:46:[facility] - [facility] Afluria Afluria 2021-01-01 [facility]pleted [facility] 14:46:[facility] - [facility] Afluria Afluria 2021-01-01 [facility]pleted [facility] 14:46:[facility] - [facility] Afluria Afluria 2021-01-01 [facility]pleted [facility] 14:46:[facility] - [facility] Afluria Afluria 2021-01-01 [facility]pleted [facility] 14:46:00 - [facility] Afluria Afluria 2021-01-01 [facility]pleted [facility] 14:46:00 - [facility] Afluria Afluria 2021-01-01 [facility]pleted [facility] 14:46:[facility] - [facility] Afluria Afluria 2021-01-01 [facility]pleted [facility] 14:46:[facility] - [facility] Afluria Afluria 2021-01-01 [facility]pleted [facility] 14:46:00 - [facility] Afluria Afluria 2021-01-01 [facility]pleted [facility] 14:46:00 - [facility] Afluria Afluria 2021-01-01 [facility]pleted [facility] 14:46:00 - [facility] Afluria Afluria 2021-01-01 [facility]pleted [facility] 14:46:00 - [facility] Afluria Afluria 2021-01-01 [facility]pleted [facility] 14:46:00 - [facility] Afluria Afluria 2021-01-01 [facility]pleted [facility] 14:46:[facility] - [facility] Afluria Afluria 2021-01-01 [facility]pleted [facility] 14:46:00 - [facility] Afluria Afluria 2021-01-01 [facility]pleted [facility] 14:46:00 - [facility] Fluzone Fluzone 2019-04-02 Completed [facility] 08:45:00 - [facility] Fluzone Fluzone 2019-04-02 Completed [facility] 08:45:00 - [facility] Fluzone Fluzone 2019-04-02 [facility]pleted [facility] 08:45:00 - [facility] Fluzone Fluzone 2019-04-02 Completed [facility] 08:45:00 - [facility] Fluzone Fluzone 2019-04-02 Completed [facility] 08:45:00 - [facility] Fluzone Fluzone 2019-04-02 Completed [facility] 08:45:00 - [facility] Fluzone Fluzone 2019-04-02 Completed [facility] 08:45:00 - [facility] Fluzone Fluzone 2019-04-02 Completed [facility] 08:45:00 - [facility] Fluzone Fluzone 2019-04-02 Completed [facility] 08:45:00 - [facility] Fluzone Fluzone 2019-04-02 Completed [facility] 08:45:00 - [facility] Fluzone Fluzone 2019-04-02 Completed [facility] 08:45:00 - [facility] Fluzone Fluzone 2019-04-02 Completed [facility] 08:45:00 - [facility] Fluzone Fluzone 2019-04-02 Completed [facility] 08:45:00 - [facility] Fluzone Fluzone 2019-04-02 Completed [facility] 08:45:00 - [facility] Fluzone Fluzone 2019-04-02 Completed [facility] 08:45:00 - [facility] Fluzone Fluzone 2019-04-02 Completed [facility] 08:45:00 - [facility] Fluzone Fluzone 2019-04-02 Completed [facility] 08:45:00 - [facility] Fluzone Fluzone 2019-04-02 Completed [facility] 08:45:00 - [facility] Fluzone Fluzone 2019-04-02 Completed [facility] 08:45:00 - [facility] Fluzone Fluzone 2019-04-02 Completed [facility] 08:45:00 - [facility] Fluzone Fluzone 2019-04-02 Completed [facility] 08:45:00 - [facility] Fluzone Fluzone 2019-04-02 Completed [facility] 08:45:00 - [facility] Fluzone Fluzone 2019-04-02 Completed [facility] 08:45:00 - [facility] Fluzone Fluzone 2019-04-02 Completed [facility] 08:45:00 - [facility] Fluzone Fluzone 2019-04-02 Completed [facility] 08:45:00 - [facility] Fluzone Fluzone 2019-04-02 Completed [facility] 08:45:00 - [facility] Fluzone Fluzone 2019-04-02 Completed [facility] 08:45:00 - [facility] Fluzone Fluzone 2019-04-02 Completed [facility] 08:45:00 - [facility] Fluzone Fluzone 2019-04-02 Completed [facility] 08:45:00 - [facility] Fluzone Fluzone 2019-04-02 Completed [facility] 08:45:00 - [facility] Fluzone Fluzone 2019-04-02 Completed [facility] 08:45:00 - [facility] Fluzone Fluzone 2019-04-02 Completed [facility] 08:45:00 - [facility] Fluzone Fluzone 2019-04-02 Completed [facility] 08:45:00 - [facility] Fluzone Fluzone 2019-04-02 Completed [facility] 08:45:00 - [facility] Fluzone Fluzone 2019-04-02 Completed [facility] 08:45:00 - [facility] Fluzone Fluzone 2019-04-02 Completed [facility] 08:45:00 - [facility] Fluzone Fluzone 2019-04-02 Completed [facility] 00:00:00 - [facility] Vital Signs Vital Name Observation Time Observation Value Comments Source height 2022-04-11 11:00:00 64.50 [in_i] [facility] weight 2022-04-11 11:00:00 230 [lb_av] [facility] bmi 2022-04-11 11:00:00 38.87 kg/m2 [facility] height 2022-02-14 15:00:00 64.50 [in_i] [facility] weight 2022-02-14 15:00:00 228.4 [lb_av] [facility] temperature 2022-02-14 15:00:00 97.3 [degF] [facility] bmi 2022-02-14 15:00:00 38.60 kg/m2 [facility] oximetry 2022-02-14 15:00:00 98 % [facility] respiratory rate 2022-02-14 15:00:00 16 /min [facility] blood pressure 2022-02-14 15:00:00 135 mm[Hg] [facility] - systolic [facility] blood pressure 2022-02-14 15:00:00 70 mm[facility]Hg[facility] height 2022-01-21 13:20:00 64.50 [in_i] [facility] weight 2022-01-21 13:20:00 230 [lb_av] [facility] bmi 2022-01-21 13:20:00 38.87 kg/m2 [facility] height 2021-11-15 15:40:00 64.50 [in_i] [facility] weight 2021-11-15 15:40:00 226.8 [lb_av] [facility] temperature 2021-11-15 15:40:00 97.2 [degF] [facility] bmi 2021-11-15 15:40:00 38.32 kg/m2 [facility] oximetry 2021-11-15 15:40:00 96 % [facility] respiratory rate 2021-11-15 15:40:00 16 /min Comm on [facility] blood pressure 2021-11-15 15:40:00 124 mm[Hg] [facility] systolic [facility] blood pressure 2021-11-15 15:40:00 68 mm[Hg] [facility] diastolic [facility] Systolic blood 2021-10-30 16:52:00 126 mm[Hg] [facility] Diastolic blood 2021-10-30 16:52:00 79 mm[Hg] [facility] Heart rate 2021-10-30 16:52:00 74 /min [facility] Body weight 2021-10-30 16:52:00 105.597 kg [facility] BMI 2021-10-30 16:52:00 39.96 kg/m2 [facility] Oxygen saturation in 2021-10-30 16:52:00 98 /min [facility] Arterial blood by [facility] Pulse oximetry Branch height 2021-10-18 15:40:00 64.50 [in_i] [facility] weight 2021-10-18 15:40:00 228.8 [lb_av] [facility] temperature 2021-10-18 15:40:00 97.4 [degF] [facility] bmi 2021-10-18 15:40:00 38.66 kg/m2 [facility] oximetry 2021-10-18 15:40:00 97 % Common [facility] respiratory rate 2021-10-18 15:40:00 16 /min Comm on [facility] blood pressure 2021-10-18 15:40:00 130 mm[Hg] Common [facility] - systolic [facility] blood pressure 2021-10-18 15:40:00 68 mm[Hg] Common [facility] - diastolic [facility] height 2021-09-13 15:40:00 64.50 [in_i] Common [facility] weight 2021-09-13 15:40:00 231.6 [lb_av] [facility] temperature 2021-09-13 15:40:00 97.2 [degF] Common [facility] bmi 2021-09-13 15:40:00 39.14 kg/m2 [facility] oximetry 2021-09-13 15:40:00 96 % Common [facility] respiratory rate 2021-09-13 15:40:00 16 /min Comm on [facility] blood pressure 2021-09-13 15:40:00 140 mm[Hg] [facility] systolic [facility] blood pressure 2021-09-13 15:40:00 82 mm[Hg] Common [facility] diastolic [facility] height 2021-08-14 13:00:00 64.50 [in_i] [facility] weight 2021-08-14 13:00:00 231 [lb_av] Common [facility] temperature 2021-08-14 13:00:00 96.8 [degF] Common [facility] bmi 2021-08-14 13:00:00 39.03 kg/m2 Common [facility] oximetry 2021-08-14 13:00:00 98 % [facility] respiratory rate 2021-08-14 13:00:00 16 /min Comm on [facility] blood pressure 2021-08-14 13:00:00 155 mm[Hg] [facility] blood pressure 2021-08-14 13:00:00 70 mm[Hg] Common [facility] - diastolic [facility] height 2021-06-05 14:00:00 64.50 [in_i] [facility] weight 2021-06-05 14:00:00 233 [lb_av] [facility] temperature 2021-06-05 14:00:00 96.7 [degF] [facility] bmi 2021-06-05 14:00:00 39.37 kg/m2 [facility] blood pressure 2021-06-05 14:00:00 146 mm[Hg] Common [facility] - systolic [facility] blood pressure 2021-06-05 14:00:00 84 mm[Hg] [facility] height 2021-05-11 13:20:00 64.50 [in_i] Common [facility] weight 2021-05-11 13:20:00 228.7 [lb_av] Common [facility] temperature 2021-05-11 13:20:00 97.8 [degF] [facility] bmi 2021-05-11 13:20:00 38.65 kg/m2 [facility] oximetry 2021-05-11 13:20:00 98 % [facility] respiratory rate 2021-05-11 13:20:00 18 /min Comm on [facility] blood pressure 2021-05-11 13:20:00 139 mm[Hg] Common [facility] - systolic [facility] blood pressure 2021-05-11 13:20:00 67 mm[Hg] [facility] height 2021-05-11 14:00:00 64.50 [in_i] [facility] weight 2021-05-11 14:00:00 228.7 [lb_av] Common [facility] temperature 2021-05-11 14:00:00 97.8 [degF] Common [facility] bmi 2021-05-11 14:00:00 38.65 kg/m2 [facility] blood pressure 2021-05-11 14:00:00 139 mm[Hg] Common [facility] - systolic [facility] blood pressure 2021-05-11 14:00:00 67 mm[Hg] [facility] - diastolic [facility] height 2021-04-02 15:20:00 64.50 [in_i] Common [facility] weight 2021-04-02 15:20:00 228 [lb_av] [facility] temperature 2021-04-02 15:20:00 96.9 [degF] Common [facility] bmi 2021-04-02 15:20:00 38.53 kg/m2 [facility] oximetry 2021-04-02 15:20:00 97 % [facility] respiratory rate 2021-04-02 15:20:00 19 /min Comm on [facility] blood pressure 2021-04-02 15:20:00 138 mm[Hg] Common [facility] - systolic [facility] blood pressure 2021-04-02 15:20:00 65 mm[Hg] [facility] - diastolic [facility] height 2020-12-22 10:00:00 64.50 [in_i] Common [facility] weight 2020-12-22 10:00:00 220 [lb_av] [facility] bmi 2020-12-22 10:00:00 37.18 kg/m2 [facility] Procedures Procedure Date / Time Performed Performing Clinician Sour e EXTERNAL PROVIDER 2021-11-26 05:01:00 Doctor Unassigned, No [facility] RECORDS Name Medical Branch Encounters Start End Encounter Admission Attending Care Care Encounter Source Date/Time Date/Time Type Type Clinicians Facility Department ID 2022-04-11 Outpatient Goznalez, STLMLC STLMLC [id number] Common 11:02:01 [facility] [address] [facility] 2022-04-10 Outpatient Gonzalez, STLMLC STLMLC [id number] [facility] 09:38:01 [facility] [address]3074 [facility] 2022-04-04 Outpatient Gonzalez, STLMLC STLMLC [id number] Common 15:02:00 [facility] 30903 [facility] 2022-02-13 Outpatient Ruelas, Na STLMLC STLMLC [id number] 2 Common 07:36:00 [facility] 2022-01-17 Outpatient Ruelas, Na STLMLC STLMLC [id number] 2 Common 11:35:01 [facility] 2021-12-14 Outpatient Ruelas, Na STLMLC STLMLC [id number] 2 Common 09:46:00 [facility] 2021-10-16 Outpatient Ruelas, Na STLMLC STLMLC [id number] 2 Common 15:14:01 [facility] 2021-09-12 Outpatient Ruelas, Na STLMLC STLMLC [id number] 2 Common 15:57:01 [facility] 2021-09-11 Outpatient Ruelas, Na STLMLC STLMLC [id number] 2 Common 10:21:01 [facility] 2021-08-13 Outpatient Ruelas, Na STLMLC STLMLC [id number] 2 Common 13:31:00 [facility] 2021-05-18 Outpatient Ruelas, Na STLMLC STLMLC [id number] 2 Common 11:01:01 [facility] 2021-05-11 Outpatient Ruelas, Na STLMLC STLMLC [id number] 2 Common 13:17:01 [facility] 2021-05-10 Outpatient Ruelas, Na STLMLC STLMLC [id number] 2 Common 09:35:00 [facility] 2021-05-09 Outpatient Ruelas, Na STLMLC STLMLC [id number] 2 Common 11:36:01 [facility] 2021-04-10 Outpatient Ruelas, Na STLMLC STLMLC [id number] 2 Common 14:01:01 [facility] 2021-04-04 Outpatient Ruelas, Na STLMLC STLMLC [id number] 2 Common 14:35:57 [facility] 2021-04-04 Outpatient Ruelas, Na STLMLC STLMLC [id number] 2 Common 14:32:10 [facility] 2021-04-04 Outpatient Ruelas, Na STLMLC STLMLC [id number] 2 Common 14:26:31 [facility] 2021-04-04 Outpatient Ruelas, Na STLMLC STLMLC [id number] 2 Common 14:22:06 00127 [facility] 2021-04-04 Outpatient Ruelas, Na STLMLC STLMLC [id number] 2 Common 13:47:57 [id number] [facility] 2021-04-04 Outpatient Ruelas, Na STLMLC STLMLC [id number] 2 Common 13:31:15 [id number] [facility] 2021-04-04 Outpatient Ruelas, Na STLMLC STLMLC [id number] 2 Common 13:17:49 [id number] [facility] 2021-04-04 Outpatient Ruelas, Na STLMLC STLMLC [id number] 2 Common 13:15:11 [id number] [facility] 2021-04-04 Outpatient Ruelsa, Na STLMLC STLMLC [id number] 2 Common 12:56:33 75082 [facility] 2021-04-04 Outpatient Ruelas, Na STLMLC STLMLC [id number] 2 Common 12:51:32 32809 [facility] 2021-04-04 Outpatient Ruelas, Na STLMLC STLMLC [id number] 2 Common 12:45:45 20609 [facility] 2021-04-04 Outpatient Ruelas, Na STLMLC STLMLC [id number] 2 Common 12:44:50 [id number] [facility] 2021-04-04 Outpatient Ruelas, Na STLMLC STLMLC [id number] 2 Common 12:26:48 38868 [facility] 2021-04-04 Outpatient Ruelas, Na STLMLC STLMLC [id number] 2 Common 12:25:49 43025 [facility] 2021-04-04 Outpatient Ruelas, Na STLMLC STLMLC [id number] 2 Common 12:12:47 [id number] [facility] 2021-04-04 Outpatient Ruelas, Na STLMLC STLMLC [id number] 2 Common 12:03:01 66066 [facility] 2021-04-04 Outpatient Ruelas, Na STLMLC STLMLC [id number] 2 Common 12:02:32 67081 [facility] 2021-04-04 Outpatient Ruelas, Na STLMLC STLMLC [id number] 2 Common 11:46:04 [id number] [facility] 2021-04-04 Outpatient Ruelas, Na STLMLC STLMLC [id number] 2 Common 11:45:14 42042 [facility] 2021-04-04 Outpatient Ruelas, Na STLMLC STLMLC [id number] 2 Common 11:44:02 80148 [facility] 2021-04-04 Outpatient Ruelas, Na STLMLC STLMLC [id number] 2 Common 11:26:10 [id number] [facility] 2021-04-04 Outpatient Ruelas, Na STLMLC STLMLC [id number] 2 Common 11:25:37 35135 [facility] 2021-04-04 Outpatient Ruelas, Na STLMLC STLMLC [id number] 2 Common 11:02:45 05277 [facility] 2020-04-11 Inpatient EL Elders, [facility]CA[facility] DAYS [id number] 11:00:00 Luis 98 [facility] 2020-03-07 Inpatient EL Elders, [facility] DAYS [id number] [facility] 14:40:00 Luis 57 [facility] 2022-05-14 2022-05-14 Outpatient R JOVI [facility] [id number] Univers 13:00:00 13:00:00 [facility] 2022-04-11 2022-04-11 [facility] [id number] Co mmon 00:00:00 00:00:00 [facility] ESTAB PT - CHI LEVEL 4 [facility] 2022-04-09 2022-04-09 Outpatient R JOVI [facility] [id number] Univers 11:30:00 11:30:00 [facility] 2022-04-08 2022-04-08 Telephone [facility] [id number] Univers 00:00:00 00:00:00 Filmmortal [id number] it y of [place] [id number] Tramaine as HIGINIO?BLEA [phone] [address] MEDICAL OFFICE [facility] 2022-03-27 2022-03-27 Refill [facility] [id number] Univers 00:00:00 00:00:00 Filmmortal [id number] it y of [place] [id number] Tramaien as HIGINIO?BLEA [id number] [address] MEDICAL OFFICE [facility] 2022-03-20 2022-03-20 Refill [facility] [id number] Univers 00:00:00 00:00:00 Filmmortal [id number] it y of [place] [id number] Tramaine as HIGINIO?BLEA [id number] [address] MEDICAL OFFICE [facility] 2022-03-17 2022-03-17 Refventura [facility] [id number] Univers 00:00:00 00:00:00 Filmmortal [id number] it y of [place] [id number] Tramaine as HIGINIO?BLEA [id number] Ia keaton [address] MEDICAL OFFICE BUILDING 2022-03-08 2022-03-08 Patient Jovi UTGENEVA [id number] Univers 00:00:00 00:00:00 Secure Msg Teresa MULTISPEC [id number] ity of [place] [id number] [facility] [id number] [address] DIABETES [facility] 2022-02-20 2022-02-20 (TEL) STLMLC STLMLC [id number] Co mmon 00:00:00 00:00:00 [facility] 2022-02-14 2022-02-14 OFFICE STLMLC STLMLC [id number] Co mmon 00:00:00 00:00:00 VISIT EST Spir it PT LEVEL 3 [facility] 2022-01-27 2022-01-27 (WEB) STLMLC STLMLC [id number] Co mmon 00:00:00 00:00:00 [facility] 2022-01-25 2022-01-25 Patient JOSE RAUL [place] [id number] Univers 00:00:00 00:00:00 Secure Msg Teresa MULTISPEC [id number] ity of [place] [id number] [facility] [phone] [address] DIABETES [facility] 2022-01-24 2022-01-24 (WEB) STLMLC STLMLC [id number] Co mmon 00:00:00 00:00:00 [facility] 2022-01-21 2022-01-21 OL DIG E/M STLMLC STLMLC [id number] Common 00:00:00 00:00:00 [facility] 01-27 Spir it [facility] 2022-01-09 2022-01-09 (TEL) STLMLC STLMLC [id number] Co mmon 00:00:00 00:00:00 [facility] 2021-12-20 2021-12-20 (WEB) STLMLC STLMLC [id number] Co mmon 00:00:00 00:00:00 [facility] 2021-11-26 2021-11-26 Orders Doctor RUBY [id number] Univers 00:00:00 00:00:00 Only Unassigned, WILLIAM [id number] [place] [facility] [id number] Tramaine as [phone] [address] 2021-11-15 2021-11-15 OFFICE STLMLC STLMLC [id number] Co mmon 00:00:00 00:00:00 VISIT EST Spir it PT LEVEL 3 [facility] 2021-10-30 2021-10-30 Outpatient R JOVI [facility] [id number] Univers 12:00:00 12:53:55 [facility] 2021-10-30 2021-10-30 Office Jovi [facility] [id number] Univers 12:00:00 12:53:55 Visit [facility] [id number] it y of [place] [id number] Tramaine as HIGINIO?BLEA [phone] [address] MEDICAL OFFICE BUILDING 2021-10-23 2021-10-23 (TEL) STLMLC STLMLC [id number] Co mmon 00:00:00 00:00:00 [facility] 2021-10-20 2021-10-20 (TEL) STLMLC STLMLC [id number] Co mmon 00:00:00 00:00:00 [facility] 2021-10-18 2021-10-18 OFFICE STLMLC STLMLC [id number] Co mmon 00:00:00 00:00:00 VISIT EST Spir it PT LEVEL 3 [facility] 2021-09-13 2021-09-13 OFFICE STLMLC STLMLC [id number] Co mmon 00:00:00 00:00:00 VISIT EST Spir it PT LEVEL 3 [facility] 2021-08-31 2021-08-31 (TEL) STLMLC STLMLC [id number] Co mmon 00:00:00 00:00:00 [facility] 2021-08-14 2021-08-14 OFFICE STLMLC STLMLC [id number] Co mmon 00:00:00 00:00:00 VISIT EST Spir it PT LEVEL 3 - [facility] 2021-08-10 2021-08-10 Patient [facility] [id number] Univers 00:00:00 00:00:00 Secure Teresa MULTISPEC [id number] ity of [place] [id number] [facility] [phone] [facility] [address] [facility] 2021-08-08 2021-08-08 (TEL) STLMLC STLMLC [id number] Co mmon 00:00:00 00:00:00 [facility] 2021-08-03 2021-08-03 (TEL) STLMLC STLMLC [id number] Co mmon 00:00:00 00:00:00 [facility] 2021-06-05 2021-06-05 OFFICE STLMLC STLMLC [id number] Co mmon 00:00:00 00:00:00 VISIT NEW Spir it PT LEVEL 4 - [facility] 2021-05-30 2021-05-30 (TEL) STLMLC STLMLC [id number] Co mmon 00:00:00 00:00:00 [facility] 2021-05-21 2021-05-21 [id number] Univers 14:28:47 23:59:00 ROXANEONG ity [facility] 2021-05-21 2021-05-21 Hospital [facility] [id number] Univers 14:00:00 23:59:00 [facility] [id number] ity of [place] [id number] [facility] [id number] [facility] [address] 2021-05-14 2021-05-14 [facility] [id number] Univers 00:00[facility]00 00[facility]00[facility]11 2021-05-11 SUB ANNUAL STLMLC STLMLC [id number] Common 00:00:00 00:00:00 [facility] - [facility] [facility] 2021-05-11 2021-05-11 OFFICE STLMLC STLMLC [id number] Co mmon 00:00:00 00:00:00 VISIT EST Spir it PT LEVEL 3 [facility] 2021-05-10 2021-05-10 (TEL) STLMLC STLMLC [id number] Co mmon 00:00:00 00:00:00 [facility] 2021-05-07 2021-05-07 [facility] [id number] Univers 14:30:00 14:30:00 [facility] 2021-05-01 2021-05-01 [facility] [id number] Univers 11:30:00 12:27:00 [facility] 2021-04-24 2021-04-24 Office [facility] [id number] Univers 10:30:00 11:00:00 Visit [facility] [id number] it y of [place] [id number] Tramaine as HIGINIO?BLEA [id number] [address] MEDICAL OFFICE BUILDING 2021-04-24 2021-04-24 [facility] [id number] Univers 10:30:00 10:30:00 [facility] 2021-04-09 2021-04-09 (TEL) [facility] [id number] Co mmon 00:00:00 00:00:00 [facility] 2021-04-02 2021-04-02 OFFICE STLMLC STLMLC [id number] Co mmon 00:00:00 00:00:00 VISIT EST Spir it PT LEVEL 3 [facility] 2021-03-15 2021-03-15 (TEL) STLMLC STLMLC [id number] Co mmon 00:00:00 00:00:00 [facility] 2021-03-15 2021-03-15 (TEL) STLMLC STLMLC [id number] Co mmon 00:00:00 00:00:00 [facility] 2021-02-14 2021-02-14 (TEL) STLMLC STLMLC [id number] Co mmon 00:00:00 00:00:00 [facility] 2021-02-06 2021-02-06 (TEL) STLMLC STLMLC [id number] Co mmon 00:00:00 00:00:00 [facility] 2021-01-01 2021-01-01 (INJ) STLMLC STLMLC [id number] Co mmon 00:00:00 00:00:00 Injection Spir [facility] 2021-01-01 2021-01-01 (TEL) STLMLC STLMLC [id number] Co mmon 00:00:00 00:00:00 [facility] 2020-12-27 2020-12-27 (TEL) STLMLC STLMLC [id number] Co mmon 00:00:00 00:00:00 [facility] 2020-12-22 2020-12-22 OFFICE STLMLC STLMLC [id number] Co mmon 00:00:00 00:00:00 VISIT EST Spir it PT LEVEL 3 [facility] 2020-12-22 2020-12-22 (TEL) STLMLC STLMLC [id number] Co mmon 00:00:00 00:00:00 [facility] 2020-12-22 2020-12-22 (TEL) STLMLC STLMLC [id number] Co mmon 00:00:00 00:00:00 [facility] 2020-12-01 2020-12-01 (TEL) STLMLC STLMLC [id number] Co mmon 00:00:00 00:00:00 [facility] 2020-10-24 2020-10-24 Outpatient STLMLC STLMLC [id number] Common 00:00:00 00:00:00 [facility] 2020-08-02 2020-08-02 Outpatient STLMLC STLMLC [id number] Common 00:00:00 00:00:00 [facility] 2020-07-05 2020-07-05 Outpatient STLMLC STLMLC [id number] Common 00:00:00 00:00:00 [facility] 2020-06-20 2020-06-20 Outpatient STLMLC STLMLC [id number] Common 00:00:00 00:00:00 [facility] 2020-06-20 2020-06-20 Outpatient STLMLC STLMLC [id number] Common 00:00:00 00:00:00 [facility] 2020-06-15 2020-06-15 Outpatient STLMLC STLMLC [id number] Common 00:00:00 00:00:00 [facility] 2020-06-06 2020-06-06 Outpatient STLMLC STLMLC [id number] Common 00:00:00 00:00:00 [facility] 2020-06-05 2020-06-05 Outpatient STLMLC STLMLC [id number] Common 00:00:00 00:00:00 [facility] 2020-05-29 2020-05-29 Outpatient STLMLC STLMLC [id number] Common 00:00:00 00:00:00 [facility] 2020-05-09 2020-05-09 Outpatient STLMLC STLMLC [id number] Common 00:00:00 00:00:00 [facility] 2020-05-05 2020-05-05 Outpatient STLMLC STLMLC [id number] Common 00:00:00 00:00:00 [facility] 2020-04-19 2020-04-19 Outpatient STLMLC STLMLC [id number] Common 00:00:00 00:00:00 [facility] 2020-04-07 2020-04-07 Outpatient STLMLC STLMLC [id number] Common 00:00:00 00:00:00 [facility] 2020-03-28 2020-03-28 Outpatient STLMLC STLMLC [id number] Common 00:00:00 00:00:00 [facility] 2020-02-24 2020-02-24 Outpatient STLMLC STLMLC [id number] Common 00:00:00 00:00:00 [facility] 2020-02-22 2020-02-22 Outpatient STLMLC STLMLC [id number] Common 00:00:00 00:00:00 [facility] 2020-01-14 2020-01-14 Outpatient STLMLC STLMLC [id number] Common 00:00:00 00:00:00 [facility] 2019-11-23 2019-11-23 [facility] [id number] Common 11:00:00 11:00:00 [place] [address] [facility] 2019-11-16 2019-11-16 [facility] [id number] Common 09:52:00 09:52:00 [place] [address] [facility] 2019-08-30 2019-08-30 [facility] [id number] Common 08:49:00 08:49:[address] [facility] [address] [facility] 2019-08-18 2019-08-18 [facility] [id number] Common 09:40:00 09:40:00 [place] [address] [facility] 2019-08-10 2019-08-10 [facility] [id number] Common 14:31:00 14:31:00 [place] [address] [facility] 2019-08-07 2019-08-07 [facility] [id number] Common 07:31:00 07:31:00 [place] [address] [facility] 2019-08-06 2019-08-06 [facility] [id number] Common 09:20:00 09:20:00 [place] [address] [facility] 2019-04-30 2019-04-30 [facility] [id number] Common 16:02:00 16:02:00 [place] [address] [facility] 2019-04-15 2019-04-15 Outpatient [facility] [id number] Common 10:26:00 10:26:00 [place] [address] [facility] 2019-04-12 2019-04-12 Outpatient [facility] [id number] Common 09:27:00 09:27:00 [place] [address] [facility] 2019-04-02 2019-04-02 Outpatient [facility] [id number] Common 08:40:00 08:40:00 [place] [address] [facility] 2019-04-01 2019-04-01 Outpatient [facility] [id number] Common 11:20:00 11:20:00 [place] [address] [facility] Results Test Description Test Time Test Comments Results Result Comments Source Lipid Panel w/ Chol/HDL Ratio 2022-01-22 00:00:00 Test Item Value Reference Range Interpretation Comme nts Cholesterol, Total (test code 128 mg/dL See_Comment [Automated message] The system = 819-) which generated this result transmitted ref erence range: 100-199 mg/dL. The reference range was not u sed to interpret this result as normal/abnormal. Triglycerides (test code = 159 mg/dL See_Comment H [Automated message] The system 6624-3) which generated this result transmitted ref erence range: 0-149 mg/dL. Th e reference range was not used to interpret this result as warren l/abnormal. HDL Cholesterol (test code = 42 mg/dL See_Comment [Automated message] The system 3963-7) which generated this result transmitted ref erence range: >39 mg/dL. The refe rence range was not used to int erpret this result as warren l/abnormal. T. Chol/HDL Ratio (test code 3.0 ratio See_Comment [Automated message] The system = 9830-1) which generated this result transmitted ref erence range: 0.0-4.4 ratio. The reference range was not u sed to interpret this result as normal/abnormal. Microalbumin/Creat Ratio, Random [id number] 00:00:00 Test Item Value Reference Range Interpretation Comments Creatinine, 168.8 mg/dL Not Estab. mg/dL Urine (test code = 2161-8) Albumin, Urine 516.8 ug/mL Not Estab. ug/mL (test code = 04605-1) Alb/Creat Ratio 306 mg/g creat See_Comment H [Automate d message] (test code = The system [employer] 35962-6) generated this result transmitted ref erence range: 0-29 mg/ g creat. The refe rence range was not u sed to interpret this result as normal/abnor mal. Comp. Metabolic Panel (14) ([facility])2022-01-22 00:00:00 Test Item Value Reference Range Interpretation Comments Glucose (test code = 134 mg/dL See_Comment H [Autom ated message] 6608-7) The system [employer] generated this result transmitted ref erence range: 70-99 mg /dL. The reference r harriet was not used to interpret this result as normal/abnor mal. BUN (test code = 8 mg/dL See_Comment [Automated message] 1154-0) The system [employer] generated this result transmitted ref erence range: 6-24 mg/ dL. The reference r harriet was not used to interpret this result as normal/abnor mal. Creatinine (test code 0.75 mg/dL See_Comment [Auto mated message] = 0100-0) The system [employer] generated this result transmitted ref erence range: 0.57-1.0 0 mg/dL. The refe rence range was not u sed to interpret this result as normal/abnor mal. BUN/Creatinine Ratio 11 9-23 (test code = 3097-3) Sodium (test code = 142 mmol/L See_Comment [Automa debra message] 0861-2) The system [employer] generated this result transmitted ref erence range: 134-144 mmol/L. The ref erence range was not u sed to interpret this result as normal/abnor mal. Potassium (test code = 4.2 mmol/L See_Comment [Aut omated message] 7864-3) The system [employer] generated this result transmitted ref erence range: 3.5-5.2 mmol/L. The ref erence range was not u sed to interpret this result as normal/abnor mal. Chloride (test code = 100 mmol/L See_Comment [Auto mated message] 2074-) The system [facility] generated this result transmitted ref erence range: 96-106 m mol/L. The reference r harriet was not used to interpret this result as normal/abnor mal. Carbon Dioxide, Total 25 mmol/L See_Comment [Auto mated message] (test code = 2027-) The s tem which generated this result transmitted ref erence range: 20-29 mm ol/L. The reference r harriet was not used to interpret this result as normal/abnor mal. Calcium (test code = 9.9 mg/dL See_Comment [Autom ated message] 73978-0) The system [facility] generated this result transmitted ref erence range: 8.7-10.2 mg/dL. The refe rence range was not u sed to interpret this result as normal/abnor mal. Protein, Total (test 6.8 g/dL See_Comment [Autom ated message] code = 2885-2) The system [facility] generated this result transmitted ref erence range: 6.0-8.5 g/dL. The reference r harriet was not used to interpret this result as normal/abnor mal. Albumin (test code = 4.3 g/dL See_Comment [Autom ated message] 1751-7) The system [facility] generated this result transmitted ref erence range: 3.8-4.9 g/dL. The reference r harriet was not used to interpret this result as normal/abnor mal. Globulin, Total (test 2.5 g/dL See_Comment [Auto mated message] code = 21517-5) The system [facility] generated this result transmitted ref erence range: 1.5-4.5 g/dL. The reference r harriet was not used to interpret this result as normal/abnor mal. A/G Ratio (test code = 1.7 1.2-2.2 1759-0) Bilirubin, Total (test 0.5 mg/dL See_Comment [Aut omated message] code = 1975-2) The system ich generated this result transmitted ref erence range: 0.0-1.2 mg/dL. The reference r harriet was not used to interpret this result as normal/abnor mal. Alkaline Phosphatase 106 IU/L See_Comment [Autom ated message] (test code = 6768-6) The sys tem which generated this result transmitted ref erence range: 44-121 I U/L. The reference r harriet was not used to interpret this result as normal/abnor mal. AST (SGOT) (test code 53 IU/L See_Comment H [Auto mated message] = 1920-8) The system ic h generated this result transmitted ref erence range: 0-40 IU/ L. The reference range was not used to int erpret this result as normal/abnormal . ALT (SGPT) (test code 58 IU/L See_Comment H [Auto mated message] = 1742-6) The system ic h generated this result transmitted ref erence range: 0-32 IU/ L. The reference range was not used to int erpret this result as normal/abnormal . CBC With Differential/[id number] 00:00:00 Test Item Value Reference Range Interpretation Comments WBC (test code = 12.4 x10E3/uL See_Comment H [Automate d 6690-2) message] The sy stem which generated this result transmitted reference range : 3.4-10.8 x10E3/ uL. The reference r harriet was not used to interpret this result as normal/abnormal . RBC (test code = 4.82 x10E6/uL See_Comment [Automate d 789-8) message] The sy stem which generated this result transmitted reference range : 3.77-5.28 x10E6 /uL. The reference r harriet was not used to interpret this result as normal/abnormal . Hemoglobin (test code 14.6 g/dL See_Comment [Auto mated = 198-7) message] The sy stem which generated this result transmitted reference range : 11.1-15.9 g/dL. The reference range was not used to interpret this result as normal/abnormal . Hematocrit (test code 43.1 % See_Comment [Auto mated = 4124-3) message] The sy stem which generated this result transmitted reference range : 34.0-46.6 %. Th e reference range was not used to interpret this result as normal/abnormal . MCV (test code = 89 fL See_Comment [Automated 787-2) message] The sy stem which generated this result transmitted reference range : 79-97 fL. The reference range was not used to interpret this result as normal/abnormal . MCH (test code = 30.3 pg See_Comment [Automated 785-6) message] The sy stem which generated this result transmitted reference range : 26.6-33.0 pg. T he reference range was not used to interpret this result as normal/abnormal . MCHC (test code = 33.9 g/dL See_Comment [Automate d 786-4) message] The sy stem which generated this result transmitted reference range : 31.5-35.7 g/dL. The reference range was not used to interpret this result as normal/abnormal . RDW (test code = 13.0 % See_Comment [Automated 788-0) message] The sy stem which generated this result transmitted reference range : 11.7-15.4 %. Th e reference range was not used to interpret this result as normal/abnormal . Platelets (test code 349 x10E3/uL See_Comment [Autom ated = 777-3) message] The sy stem which generated this result transmitted reference range : 150-450 x10E3/u L. The reference r harriet was not used to interpret this result as normal/abnormal . Neutrophils (test 71 % Not Estab. % code = 770-8) Lymphs (test code = 20 % Not Estab. % 736-9) Monocytes (test code 6 % Not Estab. % = 5905-5) Eos (test code = 2 % Not Estab. % 713-8) Basos (test code = 1 % Not Estab. % 706-2) Immature Cells (test code = UNLOINC) Neutrophils 8.9 x10E3/uL See_Comment H [Automated (Absolute) (test code messag e] The system = 751-8) which generated this result transmitted reference range : 1.4-7.0 x10E3/u L. The reference r harriet was not used to interpret this result as normal/abnormal . Lymphs (Absolute) 2.5 x10E3/uL See_Comment [Automate d (test code = 731-0) message] The system which generated this result transmitted reference range : 0.7-3.1 x10E3/u L. The reference r harriet was not used to interpret this result as normal/abnormal . Monocytes(Absolute) 0.7 x10E3/uL See_Comment [Automa debra (test code = 742-7) message] The system which generated this result transmitted reference range : 0.1-0.9 x10E3/u L. The reference r harriet was not used to interpret this result as normal/abnormal . Eos (Absolute) (test 0.2 x10E3/uL See_Comment [Autom ated code = 711-2) message] The s ystem which generated this result transmitted reference range : 0.0-0.4 x10E3/u L. The reference r harriet was not used to interpret this result as normal/abnormal . Baso (Absolute) (test 0.1 x10E3/uL See_Comment [Auto mated code = 704-7) message] The s ystem which generated this result transmitted reference range : 0.0-0.2 x10E3/u L. The reference r harriet was not used to interpret this result as normal/abnormal . Immature Granulocytes 0 % Not Estab. % (test code = 28640-4) Immature Grans (Abs) 0.0 x10E3/uL See_Comment [Autom ated (test code = 26209-2) messag e] The system which generated this result transmitted reference range : 0.0-0.1 x10E3/u L. The reference r harriet was not used to interpret this result as normal/abnormal . NRBC (test code = 46158-6) Hematology Comments: (test code = 03686-7) TSH+Free [id number] 00:00:00 Test Item Value Reference Range Interpretation Comments TSH-ICMA (test code = 3016-3) 3.8 uU/mL Free T4 by Dialysis/Varitype Operator (test 1.6 ng/dL code = 6892-4) - XR FLUORO FOR SPINE [id number] 14:34:00 [facility] BRANDEE JOSÉ : 1965 Sex: F FAX: Luis Teixeira MD [phone] [place]: St: REG Patient Name: BRANDEE JOSÉ Unit No: [id number] EXAMS: CPT CODE: [id number] XR FLUORO FOR SPINE INJ 65937 Location: T 18 INDICATION: ONELIA IMPRESSION: 12 [...] By: [email or web address] Orig Print D/T: S: 04/11/2020 (3083) [facility] [place] NAME: BRANDEE JOSÉ [facility] PHYS: Luis Mora MD [address] [place] [address] : 1965 AGE: 54 SEX: SARAH CHAVES [id number] [facility]ONE #: [phone] EXAM DATE: 04/11/2020 STATUS: REG [facility] FAX #: [phone] RAD NO: DC Dt: PAGE 1 Signed ReportGLUCOSE BEDSIDE [id number] 11:35:00 Test Item Value Reference Range Interpretation Comments GLUCOSE BEDSIDE TESTING (test code 189 MG/DL 70-119 H = GLUBED) COVID Asymptomatic IH [id number] 12:52:00 Test Item Value Reference Interpretation Comments [...] performancechar acteristics were determined by [facility]. Thi s test has notbeen FDA harjinder [...] setting? No? NoAge at collection: YHCG SERUM [id number] 12:55:00 Test Item Value Reference Range Interpretation [...] 1 NORMAL code = LIPINDEX) Index/DL HGB [id number] 12:38:00 Test Item Value Reference Range Interpretation Comments RED BLOOD CELL (test code = RBC) 4.52 M/mm3 3.8-5.5 N HEMOGLOBIN (test code = HGB) 13.4 G/DL 10.6-15.8 N HEMATOCRIT (test code = HCT) 42.3 % 31.8-47.4 N MEAN CELL VOLUME (test code = MCV) 93.6 fL 80.1-101.1 N - XR CHEST 2 [id number] 12:21:00 [facility] BRANDEE JOSÉ : 1965 Sex: F FAX: Luis Eisenberg MD [phone] [place]: St: PRE Patient Name: BRANDEE JOSÉ Unit No: [id number] EXAMS: CPT CODE: [id number] XR CHEST 2 V 27378 Site ID: [id number] HISTORY: Preoperative FINDINGS: The lungs are clear and normally expanded. The heart and pulmonary vasculature is normal. Osseous structures are unremarkable. IMPRESSION: Normal preoperative chest x-ray at 1221 Reported and signed by: Santino Golden M.D. CC: Luis Porter MD Dictated Date/Time: 04/06/2020 (1221)Technologist: Smith Benton Transcribed Date/Time: 04/06/2020 (1221) By: [email or web address] Orig Print D/T: S: 04/06/2020 (6553) 501 Imaging NAME: BRANDEE JOSÉ [address] [place] [address] PHYS: Luis Mora MD [place], [place] : 1965 AGE: 54 SEX: F [phone] [id number] LOC: [facility] PHONE #: [phone] EXAM DATE: 04/06/2020 STATUS: PRE [facility] FAX #: [phone] RAD NO: DC Dt: PAGE 1 Signed ReportGLUCOSE BEDSIDE [id number] 07:49:00 Test Item Value Reference Range Interpretation Comments GLUCOSE BEDSIDE TESTING (test code 141 MG/DL 70-119 H = GLUBED) Novel Coronavirus 2019 [id number] 18:08:00 Test Item Value Reference Range Interpretation Comments Novel Coronavirus Not Detected Not Detected Testing wa s performed 2019 Inhouse (test using the [employer] code = COVNONPUI) SARS-CoV-2 assay.This nucleic acid amplification t est was developed and itsperformance characteristics determined by Lissa bautista. Nucleic acid amplification t ests include [...] frannie gnosis of COVID-19 infect ion under kynwuhu897(b)(1 ) of the Act, 21 U.S.C. 360bbb-3(b) [...] resul t in this assay.Performed At: [facility] [address] [id number] fady Gillis MD Ph:[phone] UR HCG [id number] 16:55:00 Test Item Value Reference Range Interpretation Comments UR HCG QUAL (test NEGATIVE NEG Very dilut e urines with a code = HCGQLU) low specific gravity may notcontain repr esentative levels of hCG. - XR CHEST 2 [id number] 16:55:00 [facility] BRANDEE JOSÉ : 1965 Sex: F FAX: Luis Teixeira MD [phone] [place]: O St: PRE Patient Name: BRANDEE JOSÉ Unit No: [id number] EXAMS: CPT CODE: [id number] XR CHEST 2 V 72231 - XR CHEST 2 V LOCATION: T18 [...] Orig Print D/T: S: 03/01/2020 (1657) JAY [place] NAME: BRANDEE JOSÉ [facility] PHYS: Luis Mora MD [address] [place] [address] : 1965 AGE: 54 SEX: Diana TREVIÑO, SARAH [address] [facility] PHONE #: [phone] EXAM DATE: 03/01/2020 STATUS: PRE [facility] FAX #: [phone] RAD NO: DC Dt: PAGE 1 Si gned ReportCOMPREHENSIVE METABOLIC [id number] 16:39:00 Test Item Value Reference Range Interpretation [...] code = LIPINDEX) MG Index/DL COMPREHENSIVE METABOLIC [id number] 16:34:00 Test Item Value Reference Range Interpretation [...] MG 1 NORMAL = LIPINDEX) Index/DL HGB [id number] 16:22:00 Test Item Value Reference Range Interpretation Comments RED BLOOD CELL (test code = RBC) 4.61 M/mm3 3.8-5.5 N HEMOGLOBIN (test code = HGB) 13.6 G/DL 10.6-15.8 N HEMATOCRIT (test code = HCT) 42.7 % 31.8-47.4 N MEAN CELL VOLUME (test code = MCV) 92.6 fL 80.1-101.1 N
[2022-04-14] MEDS ORDERED: ALBUTEROL 2.5 MG/3 ML NEB SOL ONE ×2 (00:32→01:16)
[2022-04-14] MEDS ORDERED: IPRATROPIUM BROM 0.5MG/2.5ML ONE (00:32)
[2022-04-14] MEDS ORDERED: METHYLPREDNISOLONE 125 MG INJ ONE (00:32)
[2022-04-14 01:17] LABS: Absolute Lymphocytes (CBC) 2.5 K/uL (0.7-4.9); Hematocrit 40.4 % (36.0-45.0); Lymphocytes % 34.1 % (15.3-44.8); MCV 90.6 fL (80-100); MPV 9.6 fL (7.6-11.3); RBC Red Blood Cell Count 4.47 M/uL (3.86-4.86)
[2022-04-14] MEDS ORDERED: HYDROCODONE/CHLORPHEN 5 ML/OSYR ONE (01:21)
[2022-04-14] MEDS ORDERED: IBUPROFEN 400 MG TAB ONE (01:21)
[2022-04-14 01:24] LABS: Potassium 3.3 mmol/L (3.5-5.1); Troponin High Sensitivity 7.3 pg/mL (<58.9)
[2022-04-14 01:40] LABS: SARS-COV-2 RT PCR NEGATIVE (NEGATIVE)
[2022-04-14] MEDS ORDERED: NA CHLORIDE 0.9% 500 ML ONE (01:43)
[2022-04-14] MEDS ORDERED: INSULIN -REGULAR HUMAN 50 UNIT/0.5 ML ML ONE (01:43)
[2022-04-14] MEDS ORDERED: POTASSIUM 25 MEQ EFFERV TAB ONE (01:45)
--- NOTE | 2022-04-14 02:30 | ER ---
Nurse's Notes [facility] Name: Brandee Rajan Age: 56 yrs Sex: Female : 1965 Arrival Date: 04/14/2022 Time: 00:02 Bed 18 Private MD: Diagnosis: COPD/ Chronic obstructive pulmonary disease with acute lower respiratory infection Presentation: 04/14 00:17 Chief complaint: Patient states: "I am having allergy issues- I did a teleconference tw5 with my doc and they said they were going to refer me to a lung doctor and that scared me.". Coronavirus screen: Vaccine status: Patient reports being unvaccinated. Ebola Screen: Patient negative for fever greater than or equal to 101.5 degrees Fahrenheit, and additional compatible Ebola Virus Disease symptoms Patient denies exposure to infectious person. Patient denies travel to an Ebola-affected area in the 21 days before illness onset. Initial Sepsis Screen: Does the patient meet any 2 criteria? No. Patient's initial sepsis screen is negative. Does the patient have a suspected source of infection? No. Patient's initial sepsis screen is negative. Risk Assessment: Do you want to hurt yourself or someone else? Patient reports no desire to harm self or others. Onset of symptoms is unknown. 00:17 Method Of Arrival: Ambulatory tw5 00:17 Acuity: ONELIA 3 tw5 Triage Assessment: 00:18 General: Appears in no apparent distress. Behavior is calm, cooperative, appropriate tw5 for age. Pain: Complains of pain in left lateral anterior chest Pain currently is 8 out of 10 on a pain scale. 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 LMP N/A - Post-menopause tw5 Historical: - Allergies: 00:18 No Known Allergies; tw5 - Home Meds: 02:09 gabapentin 300 mg oral cap 1 cap BID [Active]; Trintellix 20 mg oral tab 1 tab once pf1 daily [Active]; ursodiol 250 mg Oral tab 250 mg once a day [Active]; buspirone 15 mg Oral tab 1 tab 2 times per day [Active]; 02:14 pantoprazole 40 mg oral TbEC 1 tab once daily [Active]; levothyroxine 75 mcg tab 1 tab pf1 once daily [Active]; Toujeo Max 100 units at night 100 units before bed [Active]; 02:18 cetirizine 10 mg oral cap daily [Active]; aspirin 81 mg Oral cap 1 cap once daily pf1 [Active]; pravastatin 20 mg oral tab 1 tab once daily [Active]; varenicline 1 mg oral tab 1 tab 2 times per day [Active]; benzonatate 100 mg oral cap as needed for cough [Active]; losartan 50 mg oral tab 1 tab once daily for hypertension [Active]; metformin 750 mg Oral Tb24 2 tabs once daily [Active]; amlodipine 5 mg tab 1 tab once daily [Active]; 02:24 trulicity 0.75mg/0.5ml once a week [Active]; pf1 - PMHx: 00:18 diabetes mellitus; Hypertensive disorder; thyroid; tw5 02:09 Arthritis; Anxiety; pf1 02:24 acid reflux; Hypercholesterolemia; pf1 02:31 Chronic obstructive lung disease; pf1 - PSHx: 00:18 Cholecystectomy; breast reduction; tw5 - Immunization history:: Flu vaccine is up to date. - Social history:: Smoking status: Patient reports the use of cigarette tobacco products, "I stopped three days ago.". Screenin:19 [facility] ED Fall Risk Assessment (Adult) History of falling in the last 3 months, tw5 including since admission. Abuse screen: Denies threats or abuse. Denies injuries from another. Nutritional screening: No deficits noted. Tuberculosis screening: No symptoms or risk factors identified. Assessment: 00:21 General: Appears in no apparent distress. comfortable, obese, well groomed, well pf1 developed, Behavior is calm, cooperative, appropriate for age, quiet. Pain: Complains of pain in left lateral anterior chest Pain currently is 9 out of 10 on a pain scale. Neuro: No deficits noted. Level of Consciousness is awake, alert, obeys commands, Oriented to person, place, time, situation. Cardiovascular: Capillary refill < 3 seconds Patient's skin is warm and dry. Respiratory: Reports cough that is productive, Airway is patent Trachea midline Respiratory effort is even, unlabored, Respiratory pattern is regular, symmetrical. GI: No deficits noted. No signs and/or symptoms were reported involving the gastrointestinal system. : No deficits noted. No signs and/or symptoms were reported regarding the genitourinary system. EENT: Reports nasal congestion for 3 days. Derm: No deficits noted. No signs and/or symptoms reported regarding the dermatologic system. 00:21 Respiratory: Breath sounds with wheezes bilaterally. pf1 01:23 Reassessment: Patient appears in no apparent distress at this time. No changes from pf1 previously documented assessment. Patient and/or family updated on plan of care and expected duration. Pain level reassessed. Patient is alert, oriented x 3, equal unlabored respirations, skin warm/dry/pink. 02:30 Reassessment: Patient appears in no apparent distress at this time. Patient and/or pf1 family updated on plan of care and expected duration. Pain level reassessed. Patient is alert, oriented x 3, equal unlabored respirations, skin warm/dry/pink. Patient states feeling better. 03:30 Reassessment: Patient appears in no apparent distress at this time. Patient and/or pf1 family updated on plan of care and expected duration. Pain level reassessed. Patient is alert, oriented x 3, equal unlabored respirations, skin warm/dry/pink. Patient states feeling better. Patient states symptoms have improved. Vital Signs: 00:17 BP 156 / 86; Pulse 86; Resp 18; Temp 98.0; Pulse Ox 96% ; Weight 104.33 kg; Height 5 tw5 ft. 4 in. (162.56 cm); Pain 8/10; 01:15 BP 142 / 64; Pulse 74; Resp 20; Pulse Ox 97% ; pf1 02:00 BP 164 / 67; Pulse 93; Resp 22; Pulse Ox 95% on R/A; Pain 7/10; pf1 03:00 BP 140 / 58; Pulse 88; Resp 20; Temp 98.1; Pulse Ox 95% on R/A; Pain 4/10; pf1 00:17 Body Mass Index 39.48 (104.33 kg, 162.56 cm) tw5 ED Course: 00:02 Patient arrived in ED. jj6 00:05 Compa Israel PA is PHCP. cp 00:05 Mariam Prince MD is Attending Physician. cp 00:18 Ingrid reyna RN is Primary Nurse. pf1 00:18 Triage completed. tw5 00:18 Arm band placed on. tw5 00:19 Patient has correct armband on for positive identification. Door closed. Warm blanket tw5 given. 00:35 No provider procedures requiring assistance completed. Inserted saline lock: 20 gauge pf1 in right antecubital area, using aseptic technique. Blood collected. 00:47 COVID-19/FLU A+B Sent. pf1 00:48 Basic Metabolic Panel Sent. pf1 00:48 CBC with Diff Sent. pf1 00:48 Magnesium Sent. pf1 00:48 NT PRO-BNP Sent. pf1 00:48 Troponin HS Sent. pf1 02:03 XRAY Chest (1 view) In Process Unspecified. EDMS 02:29 Sergio Lizarraga MD is Hospitalizing Provider. sd2 03:51 Patient admitted, IV remains in place. pf1 Administered Medications: 00:45 Drug: SOLU-Medrol (methylPrednisoLONE) 125 mg Route: IVP; Site: right antecubital; pf1 01:18 Follow up: Response: No adverse reaction; Marked relief of symptoms pf1 00:45 Drug: Albuterol - atroVENT (ipratropium) (3:1) (2.5 mg - 0.5 mg) 3 ml Route: Nebulizer; pf1 01:17 Follow up: Response: No adverse reaction; Marked relief of symptoms pf1 01:18 Drug: Ibuprofen 800 mg Route: PO; pf1 01:52 Follow up: Response: No adverse reaction; Marked relief of symptoms; Pain is decreased; pf1 RASS: Alert and Calm (0) 01:20 Drug: Tussionex Pennkinetic ER (chlorpheniramine-hydrocodone) Suspension 5 ml Route: PO;pf1 01:51 Follow up: Response: No adverse reaction; Marked relief of symptoms pf1 01:39 Drug: Insulin Regular Human 10 units {Co-Signature: pf1 (Ingrid reyna RN).} Route: tw5 IVP; Site: right antecubital; 02:30 Follow up: Response: No adverse reaction; Marked relief of symptoms; Blood sugar is pf1 lowered 01:40 Drug: NS 0.9% 500 ml Route: IV; Rate: bolus; Site: right antecubital; pf1 02:30 Follow up: Response: No adverse reaction; Marked relief of symptoms; IV Status: pf1 Completed infusion; IV Intake: 500ml 01:47 Drug: Potassium Effervescent Tablet 50 mEq Route: PO; pf1 02:30 Follow up: Response: No adverse reaction pf1 03:02 Drug: Magnesium Sulfate 1 grams Route: IVPB; Infused Over: 1 hrs; Site: right pf1 antecubital; 03:42 Follow up: Response: No adverse reaction pf1 04:03 Follow up: Response: No adverse reaction; IV Status: Completed infusion; IV Intake: [id number] Medication: 03:42 VIS not applicable for this client. pf1 Intake: 02:30 IV: 500ml; Total: 500ml. pf1 04:03 IV: 50ml; Total: 550ml. pf1 Outcome: 02:29 Decision to Hospitalize by Provider. sd2 03:50 Admitted to Tele accompanied by [employer], via wheelchair, room 420, with chart, Report pf1 called to ARTHUR Nassar 03:50 Condition: stable 03:57 Instructed on the need for admit, Demonstrated understanding of instructions. pf1 04:02 Patient left the ED. pf1 Signatures: Dispatcher [employer] EDMS Compa Israel PA PA cp Wood, Tiffany tw5 Roseanne Simons6 Mariam Prince MD MD sd2 Ingrid reyna RN RN pf1 Ingrid reyna RN pf1 Corrections: (The following items were deleted from the chart) 02:30 02:14 Home Meds: pantoprazole 40mg tablet oral grps 1 tab once daily; pf1 pf1 02:32 02:31 PMHx: Chronic obstructive lung disease; pf1 pf1 02:32 02:31 PMHx: Chronic obstructive lung disease; pf1 pf1 02:32 02:31 PMHx: Chronic obstructive lung disease; pf1 pf1 03:57 03:50 Admitted to Tele accompanied by [employer], via wheelchair, room 420, with chart, pf1 pf1
--- NOTE | 2022-04-14 02:30 | EDPHYS ---
Physician Documentation [facility] Name: Brandee Rajan Age: 56 yrs Sex: Female : 1965 Arrival Date: 04/14/2022 Time: 00:02 Bed 18 Private MD: ED Physician Mariam Prince HPI: 04/14 00:20 This 56 yrs old Female presents to ER via Ambulatory with complaints of Cough, cp Congestion. 00:20 The patient or guardian reports cough, that is constant. cp 00:20 Onset: The symptoms/episode began/occurred gradually, and became worse today. Severity cp of symptoms: in the emergency department the symptoms are unchanged, despite home interventions. 00:20 Associated signs and symptoms: Pertinent positives: chest pain, with cough, Pertinent cp negatives: diarrhea, fever, vomiting. 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 tw5 Historical: - Allergies: 00:18 No Known Allergies; tw5 - Home Meds: 02:09 gabapentin 300 mg oral cap 1 cap BID [Active]; Trintellix 20 mg oral tab 1 tab once pf1 daily [Active]; ursodiol 250 mg Oral tab 250 mg once a day [Active]; buspirone 15 mg Oral tab 1 tab 2 times per day [Active]; 02:14 pantoprazole 40 mg oral TbEC 1 tab once daily [Active]; levothyroxine 75 mcg tab 1 tab pf1 once daily [Active]; Toujeo Max 100 units at night 100 units before bed [Active]; 02:18 cetirizine 10 mg oral cap daily [Active]; aspirin 81 mg Oral cap 1 cap once daily pf1 [Active]; pravastatin 20 mg oral tab 1 tab once daily [Active]; varenicline 1 mg oral tab 1 tab 2 times per day [Active]; benzonatate 100 mg oral cap as needed for cough [Active]; losartan 50 mg oral tab 1 tab once daily for hypertension [Active]; metformin 750 mg Oral Tb24 2 tabs once daily [Active]; amlodipine 5 mg tab 1 tab once daily [Active]; 02:24 trulicity 0.75mg/0.5ml once a week [Active]; pf1 - PMHx: 00:18 diabetes mellitus; Hypertensive disorder; thyroid; tw5 02:09 Arthritis; Anxiety; pf1 02:24 acid reflux; Hypercholesterolemia; pf1 02:31 Chronic obstructive lung disease; pf1 - PSHx: 00:18 Cholecystectomy; breast reduction; tw5 - Immunization history:: Flu vaccine is up to date. - Social history:: Smoking status: Patient reports the use of cigarette tobacco products, "I stopped three days ago.". ROS: 00:25 Constitutional: Negative for body aches, chills, fever, poor PO intake. cp 00:25 Eyes: Negative for injury, pain, redness, and discharge. cp 00:25 ENT: Negative for drainage from ear(s), ear pain, sore throat, difficulty swallowing, difficulty handling secretions. 00:25 Cardiovascular: Positive for chest pain, with cough, Negative for edema, palpitations. 00:25 Respiratory: Positive for cough, orthopnea, shortness of breath, at rest. wheezing. 00:25 Abdomen/GI: Negative for abdominal pain, vomiting, diarrhea, constipation. 00:25 Neuro: Negative for altered mental status, dizziness, headache, syncope, weakness. 00:25 All other systems are negative. cp Exam: 00:30 Constitutional: The patient appears in no acute distress, alert, awake, cp non-diaphoretic, non-toxic, well developed, well nourished, overweight 00:30 Head/Face: Normocephalic, atraumatic. cp 00:30 Eyes: Periorbital structures: appear normal, Conjunctiva: normal, no exudate, no injection, Sclera: no appreciated abnormality, Lids and lashes: appear normal, bilaterally. 00:30 ENT: External ear(s): are unremarkable, Nose: is normal, Mouth: Lips: moist, Oral mucosa: pink and intact, moist, Posterior pharynx: Airway: no evidence of obstruction, patent. 00:30 Neck: ROM/movement: is normal, is supple, without pain, no range of motions limitations. 00:30 Chest/axilla: Inspection: normal. cp 00:30 Cardiovascular: Rate: normal, Rhythm: regular, Edema: is not appreciated, JVD: is not appreciated. 00:30 Respiratory: the patient does not display signs of respiratory distress, Respirations: normal, no use of accessory muscles, no retractions, labored breathing, is not present, Breath sounds: decreased breath sounds, that are mild, throughout, stridor, is not appreciated, wheezing: that is mild, is heard diffusely. 00:30 Abdomen/GI: Inspection: abdomen appears normal, Bowel sounds: active, all quadrants, Palpation: abdomen is soft and non-tender, in all quadrants. 00:30 Back: pain, is absent, ROM is normal. 00:30 Neuro: Orientation: to person, place \\T\\ time. Mentation: is normal. 00:30 Skin: no rash present. cp 00:37 ECG was reviewed by the Attending Physician. cp Vital Signs: 00:17 BP 156 / 86; Pulse 86; Resp 18; Temp 98.0; Pulse Ox 96% ; Weight 104.33 kg; Height 5 tw5 ft. 4 in. (162.56 cm); Pain 8/10; 01:15 BP 142 / 64; Pulse 74; Resp 20; Pulse Ox 97% ; pf1 02:00 BP 164 / 67; Pulse 93; Resp 22; Pulse Ox 95% on R/A; Pain 7/10; pf1 03:00 BP 140 / 58; Pulse 88; Resp 20; Temp 98.1; Pulse Ox 95% on R/A; Pain 4/10; pf1 00:17 Body Mass Index 39.48 (104.33 kg, 162.56 cm) tw5 MDM: 00:12 Patient medically screened. cp 02:04 Differential Diagnosis: Other Differential diagnosis includes but is not limited to: sd2 Viral URI, acute otitis media, acute otitis externa, pneumonia, UTI, COVID, flu, herpangina among others. Data reviewed: vital signs, nurses notes, lab test result(s), EKG, radiologic studies. Consideration of Admission/Observation Patient was admitted/placed on observation. Management of patient was discussed with the following: Hospitalist: . 02:06 I considered the following discharge prescriptions or medication management in the tn2 emergency department Medications were administered in the Emergency Department. See MAR. Care significantly affected by the following chronic conditions: Diabetes, Hypertension, Chronic Obstructive Pulmonary Disease. 02:26 Counseling: I had a detailed discussion with the patient and/or guardian regarding: the tn2 historical points, exam findings, and any diagnostic results supporting the discharge/admit diagnosis, lab results, radiology results, the need for further work-up and treatment in the hospital. Medication response: albuterol nebulizer treatment(s) partially relieved the patient's wheezing. Response to treatment: the patient's symptoms have mildly improved after treatment. ED course: Labs and imaging reviewed. Care assumed from PALLAVI Melton. Pt with continued wheezing and coarse breath sounds after 3 neb treatments. Will admit for further management at this time. . 04/14 00:19 Order name: Basic Metabolic Panel; Complete Time: 01:25 cp 04/14 01:25 Interpretation: Normal except: K 3.3; CO2 33; GLUC 323; GFR 89. cp 04/14 00:19 Order name: CBC with Diff; Complete Time: 01:18 cp 04/14 00:19 Order name: Magnesium; Complete Time: 01:25 cp 04/14 00:19 Order name: NT PRO-BNP; Complete Time: 01:25 cp 04/14 00:19 Order name: Troponin HS; Complete Time: 01:25 cp 04/14 01:27 Interpretation: Reviewed. cp 04/14 00:20 Order name: COVID-19/FLU A+B; Complete Time: 01:56 cp 04/14 00:19 Order name: XRAY Chest (1 view) cp 04/14 03:11 Order name: Glucose, Ancillary Testing EDMS 02 00:19 Order name: EKG; Complete Time: 00:21 cp 04/14 00:19 Order name: Cardiac monitoring; Complete Time: 00:25 cp 04/14 00:19 Order name: EKG - Nurse/Tech; Complete Time: 00:36 cp 02/ 00:19 Order name: IV Saline Lock; Complete Time: 00:48 cp 04/14 00:19 Order name: Labs collected and sent; Complete Time: 00:48 cp 04/14 00:19 Order name: O2 Per Protocol; Complete Time: 00:25 cp 04/14 00:19 Order name: O2 Sat Monitoring; Complete Time: 00:25 cp EC:37 Rate is 73 beats/min. Rhythm is regular. FL interval is normal. QRS interval is normal. cp QT interval is normal. T waves are Inverted in lead aVR. Interpreted by me. Reviewed by me. Administered Medications: 00:45 Drug: SOLU-Medrol (methylPrednisoLONE) 125 mg Route: IVP; Site: right antecubital; pf1 01:18 Follow up: Response: No adverse reaction; Marked relief of symptoms pf1 00:45 Drug: Albuterol - atroVENT (ipratropium) (3:1) (2.5 mg - 0.5 mg) 3 ml Route: Nebulizer; pf1 01:17 Follow up: Response: No adverse reaction; Marked relief of symptoms pf1 01:18 Drug: Ibuprofen 800 mg Route: PO; pf1 01:52 Follow up: Response: No adverse reaction; Marked relief of symptoms; Pain is decreased; pf1 RASS: Alert and Calm (0) 01:20 Drug: Tussionex Pennkinetic ER (chlorpheniramine-hydrocodone) Suspension 5 ml Route: PO;pf1 01:51 Follow up: Response: No adverse reaction; Marked relief of symptoms pf1 01:39 Drug: Insulin Regular Human 10 units {Co-Signature: pf1 (Ingrid reyna RN).} Route: tw5 IVP; Site: right antecubital; 02:30 Follow up: Response: No adverse reaction; Marked relief of symptoms; Blood sugar is pf1 lowered 01:40 Drug: NS 0.9% 500 ml Route: IV; Rate: bolus; Site: right antecubital; pf1 02:30 Follow up: Response: No adverse reaction; Marked relief of symptoms; IV Status: pf1 Completed infusion; IV Intake: 500ml 01:47 Drug: Potassium Effervescent Tablet 50 mEq Route: PO; pf1 02:30 Follow up: Response: No adverse reaction pf1 03:02 Drug: Magnesium Sulfate 1 grams Route: IVPB; Infused Over: 1 hrs; Site: right pf1 antecubital; 03:42 Follow up: Response: No adverse reaction pf1 04:03 Follow up: Response: No adverse reaction; IV Status: Completed infusion; IV Intake: [id number] Disposition: 02:29 I reviewed the patient's care provided by Advanced Practice Provider \\T\\ agree w/ the sd2 diagnosis \\T\\ care plan. I personally saw the pt \\T\\ performed a substantive portion of the visit, incldng all aspects of the (History/Exam/Medical Decision Making). Disposition Summary: 04/14/22 02:29 Hospitalization Ordered Hospitalization Status: Observation sd2 Provider: Sergio Lizarraga Location: Telemetry/MedSurg (observation) sd2 Condition: Stable sd2 Problem: new sd2 Symptoms: have improved sd2 Bed/Room Type: Standard sd2 Room Assignment: 420(04/14/22 03:40) tw5 Diagnosis - COPD/ Chronic obstructive pulmonary disease with acute lower respiratory infection sd2 Forms: - Medication Reconciliation Form sd2 - SBAR form sd2 Signatures: Dispatcher [employer] EDMS Ollie Cronin, ALEJANDRO-C POLISHER BALANCE SCREWHEAD-Cla1 Compa Israel PA PA cp Wood, Tiffany tw5 Mariam Prince MD MD sd2 Ingrid reyna RN RN pf1 Ingrid reyna RN pf1 Corrections: (The following items were deleted from the chart) 02:30 02:14 Home Meds: pantoprazole 40mg tablet oral grps 1 tab once daily; pf1 pf1 02:32 02:31 PMHx: Chronic obstructive lung disease; pf1 pf1 02:32 02:31 PMHx: Chronic obstructive lung disease; pf1 pf1 02:32 02:31 PMHx: Chronic obstructive lung disease; pf1 pf1 03:40 02:29 sd2 tw5
--- NOTE | 2022-04-14 02:50 | P.HP ---
Certification for Inpatient Patient admitted to: Observation With expected LOS: <2 Midnights Patient will require the following post-hospital care: None Practitioner: I am a practitioner with admitting privileges, knowledge of patient current condition, hospital course, and medical plan of care. Services: Services provided to patient in accordance with Admission requirements found in Title 42 Section 412.3 of the Code of Federal Regulations <Ollie Cronin - Last Filed: 04/14/22 02:46> Patient History Date of Service: 04/14/22 Reason for admission: Dyspnea History of Present Illness: 56-year-old female with history of diabetes mellitus type [id number], hypertension, hypothyroidism, anxiety presents to the emergency department for dyspnea, cough, wheezing. She reports symptoms increasing over the course of the last 3 days, she does admit to smoking approximately half pack per day since age of 17. She was evaluated in the emergency department her labs were significant for mild hypokalemia, hyperglycemia COVID/influenza negative. Patient was seen multiple rounds of nebulizer treatments, steroids in the emergency department still feeling short of breath with significant expiratory wheezing and rhonchi. ED provider wishes treatment observation for suspected COPD exacerbation. - Past Medical/Surgical History -: HTN -: HLD -: Hypothyroidism -: Anxiety/depression -: Cholecystectomy -: Breast reduction Psychosocial/ Personal History: Patient lives at home with family - Family History Mother -: Diabetes - Social History Smoking Status: Current every day smoker Counseled patient to stop smoking for: less than 10 minutes Smoking therapy provided: No (Patient declined) Place of Residence: Home <Ollie Cronin - Last Filed: 04/14/22 02:46> Date of Service: 04/14/22 <Sergio Lizarraga - Last Filed: 04/14/22 20:43> Review of Systems 10-point ROS is otherwise unremarkable Respiratory: Cough, Shortness of Breath, SOB with Excertion, Sputum, Wheezing <Ollie Cronin - Last Filed: 04/14/22 02:46> Physical Examination - Physical Exam General: Alert, In no apparent distress, Oriented x3 HEENT: Atraumatic, PERRLA, Mucous membr. moist/pink, EOMI, Sclerae nonicteric Neck: Supple, 2+ carotid pulse no bruit, No LAD, Without JVD or thyroid abnormality Respiratory: Expiratory wheezes, Rhonchi/gurgles Cardiovascular: Regular rate/rhythm, Normal S1 S2 Capillary refill: <2 Seconds Gastrointestinal: Normal bowel sounds, No tenderness Musculoskeletal: No tenderness Integumentary: No rashes Neurological: Normal speech, Normal strength at 5/5 x4 extr, Normal tone, Normal affect - Studies Laboratory Data (last 24 hrs) 04/14/22 00:35: WBC 7.40, Hgb 13.5, Hct 40.4, Plt Count 256 04/14/22 00:35: Sodium 137, Potassium 3.3 L, BUN 8, Creatinine 0.79, Glucose 323 H, Magnesium 2.0 <Ollie Cronin - Last Filed: 04/14/22 02:46> - Studies Laboratory Data (last 24 hrs) 04/14/22 00:35: WBC 7.40, Hgb 13.5, Hct 40.4, Plt Count 256 04/14/22 00:35: Sodium 137, Potassium 3.3 L, BUN 8, Creatinine 0.79, Glucose 323 H, Magnesium 2.0 <Sergio Lizarraga - Last Filed: 04/14/22 20:43> Assessment and Plan - Plan Assessment: Dyspnea, expiratory wheezing suspect underlying COPD with exacerbation Diabetes mellitus type [id number] with hyperglycemia Hypertension Hyperlipidemia Hypothyroidism Anxiety/depression hypokalemia Plan: Dyspnea, expiratory wheezing suspect underlying COPD with exacerbation Continue steroids, as needed nebulized treatments, ICS, antitussive agents. Pulmonology consulted, counseled on need for tobacco cessation. Diabetes mellitus type [id number] with hyperglycemia ACHS Accu-Chek, sliding scale insulin. A1c in the morning. Hypertension Hyperlipidemia Hypothyroidism Anxiety/depression Continue home meds hypokalemia Replaced in ED, protocol in place. DVT PPX: Lovenox Code status: Full Discharge Plan: Home Plan to discharge in: 24 Hours - Advance Directives Does patient have a Living Will: No Does patient have a Durable POA for Healthcare: No - Code Status/Comfort Care Code Status Assessed: Yes (Full code) Critical Care: No Time Spent Managing Pts Care (In Minutes): 55 <Ollie Cronin - Last Filed: 04/14/22 02:46>
[2022-04-14] MEDS ORDERED: MAGNESIUM SULFATE 1 gm IVPB 1 GM/100 ML BAG IV ONE (03:03)
[2022-04-14] MEDS ORDERED: BENZONATATE 100 MG CAP PO PRN (04:21)
[2022-04-14] MEDS ORDERED: IPRATROPIUM BROM 0.5MG/2.5ML NEB PRN (04:21)
[2022-04-14] MEDS ORDERED: ONDANSETRON 4 MG/2 ML VIAL IV PRN (04:21)
[2022-04-14] MEDS ORDERED: ALBUTEROL 2.5 MG/3 ML NEB SOL NEB PRN (04:21)
[2022-04-14 05:01] VITALS: BMI 39.4
[2022-04-14 05:27] LABS: Magnesium 2.3 mg/dL (1.6-2.4); Potassium 3.8 mmol/L (3.5-5.1)
[2022-04-14] MEDS ORDERED: POTASSIUM CL SA 10 MEQ TAB PO ONE (06:00)
[2022-04-14] MEDS ORDERED: INSULIN -REGULAR HUMAN 50 UNIT/0.5 ML ML SQ SCH (07:30)
[2022-04-14] MEDS ORDERED: GLUCAGON 1 MG/VIAL IM PRN ×2 (08:29→09:54)
[2022-04-14] MEDS ORDERED: D50W 25 GM/50 ML SYRINGE IV PRN ×2 (08:29→09:54)
[2022-04-14] MEDS ORDERED: INSULIN -REGULAR HUMAN 50 UNIT/0.5 ML ML IV ONE ×2 (08:30→10:05)
[2022-04-14] MEDS: INSULIN -REGULAR HUMAN 50 UNIT/0.5 ML ML SQ SCH ×3 (08:33→14:04)
[2022-04-14] MEDS ORDERED: D10W 125 ML IV PRN (08:34)
[2022-04-14] MEDS: INSULIN GLARGINE 100 UNIT/ML SQ SCH ×2 (08:34→08:49)
[2022-04-14] MEDS ORDERED: ENOXAPARIN 40 MG/0.4 ML SQ SCH (09:00)
[2022-04-14] MEDS ORDERED: predniSONE 20 MG TAB PO SCH (09:00)
[2022-04-14] MEDS ORDERED: DULERA 200/5 (MOMETASONE/FORMOTEROL) INHALER IH SCH (09:00)
[2022-04-14] MEDS ORDERED: INSULIN GLARGINE 100 UNIT/ML SQ ONE (10:45)
--- NOTE | 2022-04-14 10:46 | P.CNS ---
Date of Consult: 04/14/22 Reason for Consult: Shortness of breath wheezing Chief Complaint: Dyspnea History of Present Illness: Patient is 56 years of age mated with wheezing coughing shortness of breath productive sputum is a history of allergies and has his recurrent attacks patient is an active smoker feeling better has been complaining of some dyspnea on moderate exertion no history of any cardiac problems Allergies No Known Allergies Allergy (Verified 04/14/22 04:17) Home Medications: Amlodipine [Norvasc*] 5 mg PO DAILY 04/14/22 Aspirin [Aspirin EC] 81 mg PO DAILY 04/14/22 Benzonatate [Tessalon Perle*] 100 mg PO PRN PRN 04/14/22 Buspirone HCl 15 mg PO BID 04/14/22 Dulaglutide [Trulicity] 0.75 mg SQ EVERY 7TH DAY 04/14/22 Gabapentin 300 mg PO BID 04/14/22 Insulin Glargine,Hum.rec.anlog [Toujeo Max Solostar] 100 units SQ BEDTIME 04/14/22 Levothyroxine [Synthroid*] 0.075 mg PO DAILY 04/14/22 Losartan Potassium 50 mg PO DAILY 04/14/22 Metformin ER [Glucophage ER*] 750 mg PO BID 04/14/22 Multivitamin 1 tab PO DAILY 04/14/22 Pantoprazole [Protonix Tab] 40 mg PO DAILY 04/14/22 Pravastatin [Pravachol*] 20 mg PO DAILY 04/14/22 Varenicline Tartrate 1 mg PO BID 04/14/22 Vortioxetine Hydrobromide [Trintellix] 20 mg PO DAILY 04/14/22 ursodioL [Ursodiol] 250 mg PO DAILY 04/14/22 - Past Medical/Surgical History Diabetic: Yes -: HTN -: HLD -: Hypothyroidism -: Anxiety/depression -: Diabetes -: Cholecystectomy -: Breast reduction Psychosocial/ Personal History: Patient lives at home with family - Family History Mother Medical History: Diabetes - Social History Smoking Status: Current every day smoker Alcohol use: No CD- Drugs: No Caffeine use: Yes Place of Residence: Home Review of Systems 10-point ROS is otherwise unremarkable Physical Examination Temp Pulse Resp BP Pulse Ox 97.1 F 88 18 138/50 L 93 04/14/22 08:00 04/14/22 08:00 04/14/22 08:00 04/14/22 08:00 04/14/22 08:00 General: Alert, In no apparent distress, Oriented x3 Respiratory: Clear to auscultation bilaterally Cardiovascular: No edema, Regular rate/rhythm, Normal S1 S2 Gastrointestinal: Normal bowel sounds, Soft and benign Laboratory Data (last 24 hrs) 04/14/22 00:35: WBC 7.40, Hgb 13.5, Hct 40.4, Plt Count 256 04/14/22 00:35: Sodium 137, Potassium 3.3 L, BUN 8, Creatinine 0.79, Glucose 323 H, Magnesium 2.0 - Problems (1) Shortness of breath Current Visit: Yes Status: Acute Plan: Patient is 56 years of age admitted with shortness of breath cough and congestion and active smoker most likely she has underlying obstructive airways disease she does have dyspnea on exertion labs unremarkable chest x-ray is also unremarkable vital signs are stable plan to discharge patient on low-dose prednisone and an inhaler follow-up with me in 2 weeks will need outpatient pulmonary function testing counseled not to smoke
[2022-04-14 12:23] VITALS: BP 136/54; TEMP 97.6; O2SAT 93
--- NOTE | 2022-04-15 13:12 | RAD REPORT ---
EXAM DESCRIPTION: RAD - Chest Single View - 04/14/2022 2:01 am CLINICAL HISTORY: 6 years Female, Cough COMPARISON: Chest radiograph dated 12/22/2021 FINDINGS: No focal lung consolidation. No pleural effusion. No pneumothorax. Cardiomediastinal silhouette is within normal limits. No acute osseous abnormality. IMPRESSION: No acute cardiopulmonary disease. Electronically signed by: Edward Walker DO 04/14/2022 2:15 AM [employer] Due to temporary technical issues with the PACS/Fluency reporting system, reports are being signed by the in house radiologists without review as a courtesy to insure prompt reporting. The interpreting radiologist is fully responsible for the content of the report.
== END 2022-04-14 15:27 | disposition home or self-care (01) ==
LOC: ER 23:53 → ERHOLD 04-14 02:39 → 4TH 04-14 03:43
PROVIDERS: ADMIT Hospitalist; ATTEND Hospitalist
DX: J44.1 Chronic obstructive pulmonary disease with (acute) exacerbation (principal); I10 Essential (primary) hypertension; E78.5 Hyperlipidemia, unspecified; E03.9 Hypothyroidism, unspecified; F41.9 Anxiety disorder, unspecified; E11.65 Type 2 diabetes mellitus with hyperglycemia; Z79.4 Long term (current) use of insulin; Z91.14 Patient's other noncompliance with medication regimen; F17.210 Nicotine dependence, cigarettes, uncomplicated; Z20.822 Contact with and (suspected) exposure to COVID-19
CPT/HCPCS: 96365; 96361; 93005; 85025; 80048 ×2; 36415; 83735 ×2; 82947 ×5; 83036; 84484; 83880; 0240U; 71045; 94640; 96375; 99285; J1815 ×6; J7512; J7613 ×2; J7644; J1650; J3475; J3535; J7040; J2930; G0378 ×2

== ENCOUNTER 2023-01-20 15:03 | Emergency (ER) | payer OTHER ==
--- OUTSIDE RECORDS SUMMARY | 2023-01-20 15:15 | XMS REPORT | Continuity of Care Document ---
:1965 Author Organization [facility] t Address [address] [place] [address] [place] [id number] Care Team Providers Name Role Phone Jessa Ruelas Primary Care Physician Chayo Gonzalez Attending Clinician Unavailable Jessa Ruelas Attending Clinician Unavailable Luis Porter Attending Clinician Unavailable TERESA ESPANA Attending Clinician Unavailable Teresa Espana MD Attending Clinician [email or web address] Attending Clinician Unavailable Doctor Unassigned, [place] Attending Clinician Unavailable Lab, Ang - Db Attending Clinician Unavailable Physician, No Primary or Family Admitting Clinician Unavaila ble [email or web address] Admitting Clinician Unavailable TERESA ESPANA Admitting Clinician Unavailable Payers Payer Name Policy Type Policy Number Effective Date Expiration Date Nidia MADSEN [facility] [id number] 2019 HMO 00:00:00 MEDICAID OF [id number] 2021 [place] 00:00:00 [employer] [id number] (MEDICARE REPLACEMENT/ADV ANTAGE - H[place] [id number] [place] HUMAN MEDICARE 53 [id number] 2021 Common Sp valorie 00:00:00 - [facility] MEDICARE C1 [id number] 2019 Common Sp valorie 00:00:00 - [facility] MEDICARE C1 [id number] 2019 Common Sp valorie 00:00:00 - [facility] MEDICARE [id number] 2019 Common Sp valorie 00:00:00 - [facility] MEDICARE [id number] 2019 Common Sp valorie 00:00:00 - [facility] MEDICARE [id number] 2019 Common Sp valorie 00:00:00 - [facility] MEDICARE C1 [id number] 2019 Common Sp valorie 00:00:00 - [facility] MEDICARE [id number] 2019 Common Sp valorie 00:00:00 - [facility] MEDICARE [id number] 2019 Common Sp valorie 00:00:00 [facility] Problems Condition Condition Condition Status Onset Resolution Last Treating Co mments Source Name Details Category Date Date Treatment Clinician Date Adrenal Adrenal Disease Active Univers mass 1 cm mass 1 cm 3-20 [place]y of [place] 4 [place] 00 [place] Branch [id number] Type 2 [place] [id number] diabetes Spirit mellitus - [facility] with [facility] Sinus Sinus Problem Common problem problem [facility] [id number] Type 2 Problem Common diabetes Spirit mellitus - CHI with [facility] neuropathy Medica l , Center unspecifie d [id number] Mixed Problem Common hyperlipid Spirit emia [facility] [id number] Other Problem Common chronic Spirit pain - [facility] [id number] Depression Problem Co mmon with Spirit anxiety - [facility] Gallstones Gallstones Problem C ommon Spirit - CHI [facility] [id number] Type 2 Problem Common diabetes Spirit mellitus - CHI without St complicati [facility] [id number] Mixed Problem Common stress 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 Allergic Allergic Problem Commo n rhinitis rhinitis [facility] Diabetes Diabetes Problem Commo n mellitus DMII Spirit without without - CHI complicati complicati [facility] on [facility] [id number] Varicose Problem Commo n veins of Spirit both lower - [facility] extremitie [facility] pain Medical Center [id number] Essential Problem Comm on hypertensi Spirit on - CHI [facility] [id number] Acute Problem Common bronchitis Spirit , - CHI unspecifie d [facility] [id number] Lumbar Problem Common degenerati Spirit ve disc - CHI disease [facility] [id number] Lesion of Problem Co mmon 76969 plantar Spirit nerve, - CHI left lower limb [facility] [id number] Smokes Problem Common cigarettes Spirit - [facility] [id number] [place] [address] left foot Spirit - CHI [facility] [id number] Posterior Problem Co mmon 92222 tibial Spirit tendinitis - CHI , left leg [facility] Seizure Seizures Problem Common [facility] 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 after Medical observatio Center n [id number] Chronic Problem Common fatigue Spirit - [facility] [id number] Leukocytos Problem Co mmon is, Spirit unspecifie - CHI d type [facility] [id number] Primary Problem Comm on osteoarthr Spirit itis of - CHI right knee [facility] [id number] Postmenopa Problem Com mon usal Spirit bleeding - CH[facility] Depression Depression Problem C ommon Spirit - CHI [facility] Allergies, Adverse Reactions, Alerts Allergy Allergy Status Severity Reaction(s) Onset Inactive Treating Comm ents Source Name Type Date Date Clinician c[place]o DA Active [place] [facility]- [facility]06 [place] 00:00: [address] [place] Active [place] [facility] pollen 04-06 [place] 00:00: [address] [place]woo [place] Active [place] SINUS 2020-0 [facility] PROBLEMS 04-06 [place] 00:00: [address] ragweed [place] SINUS [facility] pollen PROBLEMS 04-06 [place] 00:00: [address] No Known DA Active U 2019-1 [facility] Allergie 2-23 [place] s 00:00: [address] No Known DA Active U 2019-1 [facility] Allergie 2-23 [place] s 00:00: [address] NO KNOWN Drug Active Univers ALLERGIE Class ity of S [facility] Social History Social Habit Start Date Stop Date Quantity Comments Source History of Tobacco Current Smoker Co mmon Spirit - Use [facility] Sex Assigned At Common Sp valorie - [facility] Sexual orientation Univer [facility] History of Social 2022-11-12 2022-11-12 Univers ity of function 00:00:00 00:00:00 [facility] Exposure to 2022-05-06 2022-05-16 Not sure University of SARS-CoV-2 (event) 00:00:00 15:29:00 [facility] Smoking Status Start Date Stop Date Source Unknown if ever smoked Common Sp valorie - CHI [facility] Current Smoker 2022-11-27 00:00:00 Common Spiri t - CHI [facility] Medications Ordered Filled Start Stop Current Ordering Indication Dosage Frequency Signature Comments Components Source Medication Medication Date Date Medication? Clinician (SIG) Name Name dulaglutide Yes [id number] 3mg inject 1 Univers (TRULICITY) 9-05 Pen under ity of 3 mg/0.5 mL [place]: [place] PnIj 00 weekly. Medical Branch gabapentin Yes [id number] 300mg Take 1 Univers 300 mg 9-05 capsule by ity of capsule 00:00: mouth in [place] 00 the Medical morning Branch and 1 capsule in the evening. dulaglutide Yes [id number] 3mg inject 1 Univers (TRULICITY) 9-05 Pen under ity of 3 mg/0.5 mL 00:[place]: [place] PnIj 00 weekly. Medical Branch gabapentin Yes [id number] 300mg Take 1 Univers 300 mg 9-05 capsule by ity of capsule 00:00: mouth in [place] 00 the Medical morning Branch and 1 capsule in the evening. dulaglutide Yes [id number] 3mg inject 1 Univers (TRULICITY) 9-05 Pen under ity of 3 mg/0.5 mL 00:00: [place] PnIj 00 weekly. Medical Branch gabapentin Yes [id number] 300mg Take 1 Univers 300 mg 9-05 capsule by ity of capsule 00:00: mouth in [place] 00 the Medical morning Branch and 1 capsule in the evening. dulaglutide Yes [id number] 3mg inject 1 Univers (TRULICITY) 9-05 Pen under ity of 3 mg/0.5 mL 00:00: [place] PnIj 00 weekly. Medical Branch gabapentin Yes [id number] 300mg Take 1 Univers 300 mg 9-05 capsule by ity of capsule 00:00: mouth in [place] 00 the Medical morning Branch and 1 capsule in the evening. insulin Yes [id number] 100U inject 100 Univers glargine 5-22 Units ity of U-300 conc 00:00: [place] the [place] (TOUJEO MAX 00 skin in Medic al U-300 the Branch [facility]) morning. 300 unit/mL (3 mL) InPn insulin Yes [id number] 100U inject 100 Univers glargine 5-22 Units ity of U-300 conc 00:00: [place] the [place] (T[place] MAX 00 skin in Medic al U-300 the [facility]) morning. 300 unit/mL (3 mL) InPn insulin Yes [id number] 100U inject 100 Univers glargine 5-22 Units ity of U-300 conc 00:00: [place] (T[place] MAX 00 skin in [facility] al U-300 the [facility]) morning. 300 unit/mL (3 mL) InPn insulin Yes [id number] 100U inject 100 Univers glargine 5-22 Units ity of U-300 conc 00:00: [place] (T[place] MAX 00 skin in [facility] al U-300 the [facility]) morning. 300 unit/mL (3 mL) InPn insulin Yes [id number] 100U inject 100 Univers glargine 5-22 Units ity of U-300 conc 00:00: [place] the [place] (TOUJE[place] MAX 00 skin in [facility] al U-300 the Branch [facility]) morning. 300 unit/mL (3 mL) InPn insulin Yes [id number] 100U inject 100 Univers glargine 3-07 Units ity of U-300 conc 00:00: [place] (TOUJE[place] MAX 00 skin in [facility] al U-300 the [facility]) morning. 300 unit/mL (3 mL) InPn metformin Yes [id number] TAKE 1 U nivers ER 750 mg 3-07 TABLET ity of 24 hr 00:00: EVERY [place] tablet 00 MORNING Medical AND TAKE 1 Branch TABLET EVERY EVENING WITH MEALS ACCU-CHEK Yes [id number] TEST 2 U nivers GUIDE TEST 3-07 TIMES ity of STRIPS 00:00: DAILY [place] strip 00 E11.65 Medical Branch dulaglutide Yes [id number] 1.5mg inject 1 Univers (TRULICITY) 3-07 Pen under ity of 1.5 mg/0.5 00:00: the skin [place] mL PnIj 00 weekly. Medical Branch insulin 0 Yes [id number] 100U inject 100 Univers glargine 3-07 Units ity of U-300 conc 00:00: [place] (T[place] MAX 00 skin in Medic al U-300 [facility]) morning. 300 unit/mL (3 mL) InPn metformin 0 Yes [id number] TAKE 1 U nivers ER 750 mg 3-07 TABLET ity of 24 hr 00:00: EVERY [place] tablet 00 MORNING Medical AND TAKE 1 Branch TABLET EVERY EVENING WITH MEALS ACCU-CHEK 0 Yes [id number] TEST 2 U nivers GUIDE TEST 3-07 TIMES ity of STRIPS 00:00: DAILY [place] strip 00 E11.65 Medical Branch dulaglutide Yes [id number] 1.5mg inject 1 Univers (TRULICITY) 3-07 Pen under ity of 1.5 mg/0.5 00:00: the skin [place] mL PnIj 00 weekly. Medical Branch insulin Yes [id number] 100U inject 100 Univers glargine 3-07 Units ity of U-300 conc 00:00: under the [place] (TOUJE[place] MAX 00 skin in Medic al U-300 [facility]) morning. 300 unit/mL (3 mL) InPn metformin 0 Yes [id number] TAKE 1 U nivers ER 750 mg 3-07 TABLET ity of 24 hr 00:00: EVERY [place] tablet 00 MORNING Medical AND TAKE 1 Branch TABLET EVERY EVENING WITH MEALS ACCU-CHEK 0 Yes [id number] TEST 2 U nivers GUIDE TEST 3-07 TIMES ity of STRIPS 00:00: DAILY [place] strip 00 E11.65 Medical Branch dulaglutide Yes [id number] 1.5mg inject 1 Univers (TRULICITY) 3-07 Pen under ity of 1.5 mg/0.5 00:00: the skin [place] mL PnIj 00 weekly. Medical Branch insulin Yes [id number] 100U inject 100 Univers glargine 3-07 Units ity of U-300 conc 00:00: under the [place] (T[place]JE[place] MAX 00 skin in Medic al U-300 the [facility]) morning. 300 unit/mL (3 mL) InPn metformin 2022-0 Yes [id number] TAKE 1 U nivers ER 750 mg 3-07 TABLET ity of 24 hr 00:00: EVERY [place] tablet 00 MORNING Medical AND TAKE 1 Branch TABLET EVERY EVENING WITH MEALS ACCU-CHEK Yes [id number] TEST 2 U nivers GUIDE TEST 3-07 TIMES ity of STRIPS 00:00: DAILY [place] strip E1165 Medical Branch dulaglutide 2022-0 Yes [id number] 1.5mg inject 1 Univers (TRULICITY) 3-07 Pen under ity of 1.5 mg/0.5 00:00: the skin [place] mL PnIj 00 weekly. Medical Branch metformin 2022-0 Yes [id number] TAKE 1 U nivers ER 750 mg 3-07 TABLET ity of 24 hr 00:00: EVERY [place] tablet 00 MORNING Medical AND TAKE 1 Branch TABLET EVERY EVENING WITH MEALS ACCU-CHEK Yes [id number] TEST 2 U nivers GUIDE TEST 3-07 TIMES ity of STRIPS 00:00: DAILY [place] strip E11.65 Medical Branch dulaglutide 0 Yes [id number] 1.5mg inject 1 Univers (TRULICITY) 3-07 Pen under ity of 1.5 mg/0.5 00:00: the skin [place] mL PnIj 00 weekly. Medical Branch metformin 2022-0 Yes [id number] TAKE 1 U nivers ER 750 mg 3-07 TABLET ity of 24 hr 00:00: EVERY [place] tablet 00 MORNING Medical AND TAKE 1 Branch TABLET EVERY EVENING WITH MEALS ACCU-CHEK 0 Yes [id number] TEST 2 U nivers GUIDE TEST 3-07 TIMES ity of STRIPS 00:00: DAILY [place] strip E11. Medical Branch metformin 2022-0 Yes [id number] TAKE 1 U nivers ER 750 mg 3-07 TABLET ity of 24 hr 00:00: EVERY [place] tablet 00 MORNING Medical AND TAKE 1 Branch TABLET EVERY EVENING WITH MEALS ACCU-CHEK 0 Yes [id number] TEST 2 U nivers GUIDE TEST 3-07 TIMES ity of STRIPS 00:00: DAILY [place] strip E11 Medical Branch metformin 2022-0 Yes [id number] TAKE 1 U nivers ER 750 mg 3-07 TABLET ity of 24 hr 00:00: EVERY [place] tablet 00 MORNING Medical AND TAKE 1 Branch TABLET EVERY EVENING WITH MEALS ACCU-CHEK Yes [id number] TEST 2 U nivers GUIDE TEST 3-07 TIMES ity of STRIPS 00:00: DAILY [place] strip 00 E11.65 Medical Branch metformin Yes [id number] TAKE 1 U nivers ER 750 mg 3-07 TABLET ity of 24 hr 00:00: EVERY [place] tablet 00 MORNING Medical AND TAKE 1 Branch TABLET EVERY EVENING WITH MEALS ACCU-CHEK Yes [id number] TEST 2 U nivers GUIDE TEST 3-07 TIMES ity of STRIPS 00:00: DAILY [place] strip 00 E11.65 Medical Branch dulaglutide 2022- No [id number] 1.5mg inject 1 Univers (TRULICITY) 05-1405 Pen under it y of 1.5 mg/0.5 00:00: 00:00 [place] mL PnIj 00 :00 weekly. Medical Branch dulaglutide 2022- No [id number] 1.5mg inject 1 Univers (TRULICITY) 05-1405 Pen under it y of 1.5 mg/0.5 00:00: 00:00 [place] mL PnIj 00 :00 weekly. Medical Branch insulin 2022- No [id number] 100U inject 100 Univers glargine 05-14 05-22 Units ity of U-300 conc 00:00: 00:00 under the [place] ([place] MAX 00 :00 skin in Medic al U-300 the [facility]) morning. 300 unit/mL (3 mL) InPn insulin Yes [id number] 90U inject 90 Univers glargine 1-14 Units ity of U-300 conc 00:00: under the [place] ([place] MAX 00 skin in Medic al U-300 the [facility]) morning. 300 unit/mL (3 mL) In metformin Yes [id number] TAKE 1 U nivers ER 750 mg 1-14 TABLET ity of 24 hr 00:00: EVERY [place] tablet 00 MORNING Medical AND TAKE 1 Branch TABLET EVERY EVENING WITH MEALS insulin Yes [id number] 90U inject 90 Univers glargine 1-14 Units ity of U-300 conc 00:00: under the [place] ([place] MAX 00 skin in Medic al U-300 [facility] morning. 300 unit/mL (3 mL) InPn metformin 0 Yes [id number] TAKE 1 U nivers ER 750 mg 1-14 TABLET ity of 24 hr 00:00: EVERY [place] tablet 00 MORNING Medical AND TAKE 1 Branch TABLET EVERY EVENING WITH MEALS insulin 0 Yes [id number] 90U inject 90 Univers glargine 1-14 Units ity of U-300 conc 00:00: under the [place] ([place] MAX 00 skin in Medic al U-300 the Branch [facility]) morning. 300 unit/mL (3 mL) InPn metformin 0 Yes [id number] TAKE 1 U nivers ER 750 mg 1-14 TABLET ity of 24 hr 00:00: EVERY [place] tablet 00 MORNING Medical AND TAKE 1 Branch TABLET EVERY EVENING WITH MEALS insulin 0 Yes [id number] 90U inject 90 Univers glargine 1-14 Units ity of U-300 conc 00:00: under the [place] ([place] MAX 00 skin in Medic al U-300 the Branch [facility]) morning. 300 unit/mL (3 mL) InPn metformin 0 Yes [id number] TAKE 1 U nivers ER 750 mg 1-14 TABLET ity of 24 hr 00:00: EVERY [place] tablet 00 MORNING Medical AND TAKE 1 Branch TABLET EVERY EVENING WITH MEALS insulin 0 Yes [id number] 90U inject 90 Univers glargine 1-14 Units ity of U-300 conc 00:00: under the [place] ([place] MAX 00 skin in Medic al U-300 [facility] Branch [facility] morning. 300 unit/mL (3 mL) InPn metformin 0 Yes [id number] TAKE 1 U nivers ER 750 mg 1-14 TABLET ity of 24 hr 00:00: EVERY [place] tablet 00 MORNING Medical AND TAKE 1 Branch TABLET EVERY EVENING WITH MEALS insulin 0 Yes [id number] 90U inject 90 Univers glargine 1-14 Units ity of U-300 conc 00:00: under the [place] ([place] MAX 00 skin in Medic al U-300 [facility] Branch [facility] morning. 300 unit/mL (3 mL) InPn metformin Yes [id number] TAKE 1 U nivers ER 750 mg 1-14 TABLET ity of 24 hr 00:00: EVERY [place] tablet 00 MORNING Medical AND TAKE 1 Branch TABLET EVERY EVENING WITH MEALS insulin Yes [id number] 90U inject 90 Univers glargine 1-14 Units ity of U-300 conc 00:00: under the [place] ([place] MAX 00 skin in Medic al U-300 the Branch [facility]) morning. 300 unit/mL (3 mL) InPn metformin Yes [id number] TAKE 1 U nivers ER 750 mg 1-14 TABLET ity of 24 hr 00:00: EVERY [place] tablet 00 MORNING Medical AND TAKE 1 Branch TABLET EVERY EVENING WITH MEALS insulin 2022- No [id number] 90U inject 90 Univers glargine -21 05-07 Units ity of U-300 conc 00:00: 00:00 under the [place] ([place] MAX 00 :00 skin in Medic al U-300 the Branch [facility]) morning. 300 unit/mL (3 mL) InPn metformin 2022- No [id number] TAKE 1 Univers ER 750 mg -14 03-07 TABLET ity of 24 hr 00:00: 00:00 EVERY [place] tablet 00 :00 MORNING Medical AND TAKE 1 Branch TABLET EVERY EVENING WITH MEALS insulin 2022- No [id number] 90U inject 90 Univers glargine -14 03-07 Units ity of U-300 conc 00:00: 00:00 under the [place] ([place] MAX 00 :00 skin in Medic al U-300 the Branch [facility]) morning. 300 unit/mL (3 mL) InPn metformin 2022- No [id number] TAKE 1 Univers ER 750 mg -14 03-07 TABLET ity of 24 hr 00:00: 00:00 EVERY [place] tablet 00 :00 MORNING Medical AND TAKE 1 Branch TABLET EVERY EVENING WITH MEALS dulaglutide Yes [id number] INJECT Univers (TRULICITY) 1-08 0.75MG (1 ity of 0.75 mg/0.5 00:00: PEN) [place] mL PnIj 00 SUBCUTANEO Medica l USLY EVERY Branch WEEK dulaglutide Yes [id number] INJECT Univers (TRULICITY) 1-08 0.75MG (1 ity of 0.75 mg/0.5 00:00: PEN) [place] mL PnIj 00 SUBCUTANEO Medica l USLY EVERY Branch WEEK dulaglutide Yes [id number] INJECT Univers (TRULICITY) 1-08 0.75MG (1 ity of 0.75 mg/0.5 00:00: PEN) [place] mL PnIj 00 SUBCUTANEO Medica l USLY EVERY Branch WEEK dulaglutide Yes [id number] INJECT Univers (TRULICITY) 1-08 0.75MG (1 ity of 0.75 mg/0.5 00:00: PEN) [place] mL PnIj 00 SUBCUTANEO Medica l USLY EVERY Branch WEEK dulaglutide Yes [id number] INJECT Univers (TRULICITY) 1-08 0.75MG (1 ity of 0.75 mg/0.5 00:00: PEN) [place] mL PnIj 00 SUBCUTANEO Medica l USLY EVERY Branch WEEK dulaglutide Yes [id number] INJECT Univers (TRULICITY) 1-08 0.75MG (1 ity of 0.75 mg/0.5 00:00: PEN) [place] mL PnIj 00 SUBCUTANEO Medica l USLY EVERY Branch WEEK dulaglutide Yes [id number] INJECT Univers (TRULICITY) 1-08 0.75MG (1 ity of 0.75 mg/0.5 00:00: PEN) [place] mL PnIj 00 SUBCUTANEO Medica l USLY EVERY Branch WEEK dulaglutide Yes [id number] INJECT Univers (TRULICITY) 1-08 0.75MG (1 ity of 0.75 mg/0.5 00:00: PEN) [place] mL PnIj 00 SUBCUTANEO Medica l USLY EVERY Branch WEEK dulaglutide 2022- No [id number] INJECT Univers (TRULICITY) 1-08 03-07 0.75MG (1 it y of 0.75 mg/0.5 00:00: 00:00 PEN) [place] mL PnIj 00 :00 SUBCUTANEO Medica l USLY EVERY Branch WEEK dulaglutide 2022- No [id number] INJECT Univers (TRULICITY) 03-17 03-07 0.75MG (1 it y of 0.75 mg/0.5 00:00: 00:00 PEN) [place] mL PnIj 00 :00 SUBCUTANEO Medica l USLY EVERY Branch WEEK amLODIPine amLODIPine No 1{table amLODIPine Besylate 5 Besylate 5 9-08 t} Besylate 5 MG MG 00:00: MG 00 amLODIPine amLODIPine No 1{table amLODIPine Besylate 5 Besylate 5 9-08 t} Besylate 5 MG MG 00:00: MG 00 amLODIPine amLODIPine No 1{table amLODIPine Besylate 5 Besylate 5 9-08 t} Besylate 5 MG MG 00:00: MG 00 amLODIPine amLODIPine 0 No 1{table amLODIPine Besylate 5 Besylate 5 9-08 t} Besylate 5 MG MG 00:00: MG 00 amLODIPine amLODIPine 0 No 1{table amLODIPine Besylate 5 Besylate 5 9-08 t} Besylate 5 MG MG 00:00: MG 00 amLODIPine amLODIPine 0 No 1{table amLODIPine Besylate 5 Besylate 5 9-08 t} Besylate 5 MG MG 00:00: MG 00 mirabegron 2021- No 50mg Take 50 mg Univers (MYRBETRIQ) 10-30 by mouth ity of 50 mg 19:09: 00:00 daily. [place] tablet 35 :00 [facility] mirabegron 2021- No 50mg Take 50 mg Univers (MYRBETRIQ) 10-30 by mouth ity of 50 mg 19:09: 00:00 daily. [place] tablet 35 :00 [facility] Branch Insulin 2021- No 68U inject 68 Univ ers Glargine 10-30 Units ity of ([place] 12:32: 00:00 [place] 16 :00 skin Medical U-100 daily. Per Branch INSULIN) sliding 100 unit/mL scale (3 mL) injection Insulin 2021- No 68U inject 68 Univ ers Glargine 8-23 08-23 Units ity of ([place] 12:32: 00:00 [place] 16 :00 skin Medical U-100 daily. Per [place] INSULIN) sliding 100 unit/mL scale (3 mL) injection insulin Yes [id number] 80U inject 80 Univers glargine 8-23 Units ity of U-300 conc 00:00: under the [place] ([place]JEO MAX 00 skin Medical U-300 daily. [facility]) E11.65 300 unit/mL (3 mL) InPn dulaglutide Yes [id number] .75mg inject 1 Univers (TRULICITY) 8-23 Pen under ity of 0.75 mg/0.5 00:00: the skin [place] mL PnIj 00 weekly. Medical Branch metformin Yes [id number] 750mg Take 1 Univers ER 750 mg 8-23 tablet by ity o f 24 hr 00:00: mouth in [place] tablet 00 the Medical morning Branch and 1 tablet in the evening. Take with meals. empaglifloz Yes [id number] 25mg Take 1 Univers in 8-23 tablet by ity of (JARDIANCE) 00:00: mouth [place] 25 mg Tab 00 every Medical morning. Branch insulin Yes [id number] 80U inject 80 Univers glargine 8-23 Units ity of U-300 conc 00:00: under the [place] (TOUJEO MAX 00 skin Medical U-300 daily. [facility]) E11.65 300 unit/mL (3 mL) InPn dulaglutide Yes [id number] .75mg inject 1 Univers (TRULICITY) 8-23 Pen under ity of 0.75 mg/0.5 00:00: the skin [place] mL PnIj 00 weekly. Medical Branch metformin 2021-0 Yes [id number] 750mg Take 1 Univers ER 750 mg 8-23 tablet by ity o f 24 hr 00:00: mouth in [place] tablet 00 the Medical morning Branch and 1 tablet in the evening. Take with meals. empaglifloz 2021-0 Yes [id number] 25mg Take 1 Univers in 8-23 tablet by ity of (JARDIANCE) 00:00: mouth [place] 25 mg Tab 00 every Medical morning. Branch insulin 2-0 Yes [id number] 80U inject 80 Univers glargine 8-23 Units ity of U-300 conc 00:00: under the [place] (TOUJEO MAX 00 skin Medical U-300 daily. [facility]) E11.65 300 unit/mL (3 mL) InPn dulaglutide 2021-0 Yes [id number] .75mg inject 1 Univers (TRULICITY) 8-23 Pen under ity of 0.75 mg/0.5 00:00: the skin [place] mL PnIj 00 weekly. Medical Branch metformin 2021-0 Yes [id number] 750mg Take 1 Univers ER 750 mg 8-23 tablet by ity o f 24 hr 00:00: mouth in [place] tablet 00 the Medical morning Branch and 1 tablet in the evening. Take with meals. empaglifloz 2-0 Yes [id number] 25mg Take 1 Univers in 8-23 tablet by ity of (JARDIANCE) 00:00: mouth [place] 25 mg Tab 00 every Medical morning. Branch insulin 2021-0 Yes [id number] 80U inject 80 Univers glargine 8-23 Units ity of U-300 conc 00:00: under the [place] (TOUJEO MAX 00 skin Medical U-300 daily. [facility]) E11.65 300 unit/mL (3 mL) InPn dulaglutide 2021-0 Yes [id number] .75mg inject 1 Univers (TRULICITY) 8-23 Pen under ity of 0.75 mg/0.5 00:00: the skin [place] mL PnIj 00 weekly. Medical Branch metformin 2-0 Yes [id number] 750mg Take 1 Univers ER 750 mg 8-23 tablet by ity o f 24 hr 00:00: mouth in [place] tablet 00 the Medical morning Branch and 1 tablet in the evening. Take with meals. empaglifloz 2022-0 Yes [id number] 25mg Take 1 [facility] in 8-23 tablet by ity of (JARDIANCE) 00:00: mouth [place] 25 mg Tab 00 every Medical morning. Branch insulin 2-0 Yes [id number] 80U inject 80 [facility] glargine 8-23 Units ity of U-300 conc 00:00: under the [place] (TOUJEO MAX 00 skin Medical U-300 daily. [facility]) E11.65 300 unit/mL (3 mL) InPn dulaglutide 0 Yes [id number] .75mg inject 1 Univers (TRULICITY) 8-23 Pen under ity of 0.75 mg/0.5 00:00: the skin [place] mL PnIj 00 weekly. Medical Branch metformin 0 Yes [id number] 750mg Take 1 Univers ER 750 mg 8-23 tablet by ity o f 24 hr 00:00: mouth in [place] tablet 00 the Medical morning Branch and 1 tablet in the evening. Take with meals. empaglifloz 0 Yes [id number] 25mg Take 1 [facility] in 8-23 tablet by ity of (JARDIANCE) 00:00: mouth [place] 25 mg Tab 00 every Medical morning. Branch insulin Yes [id number] 80U inject 80 [facility] glargine 8-23 Units ity of U-300 conc 00:00: under the [place] (TOUJEO MAX 00 skin Medical U-300 daily. [facility]) E11.65 300 unit/mL (3 mL) InPn dulaglutide Yes [id number] .75mg inject 1 [facility] (TRULICITY) 8-23 Pen under ity of 0.75 mg/0.5 00:00: the skin [place] mL PnIj 00 weekly. Medical Branch metformin 0 Yes [id number] 750mg Take 1 [facility] ER 750 mg 8-23 tablet by ity o f 24 hr 00:00: mouth in [place] tablet 00 the Medical morning Branch and 1 tablet in the evening. Take with meals. empaglifloz 0 Yes [id number] 25mg Take 1 [facility] in 8-23 tablet by ity of (JARDIANCE) 00:00: mouth [place] 25 mg Tab 00 every Medical morning. Branch insulin 2021-0 Yes [id number] 80U inject 80 [facility] glargine 8-23 Units ity of U-300 conc 00:00: under the [place] (TOUJEO MAX 00 skin Medical U-300 daily. [facility]) E11.65 300 unit/mL (3 mL) InPn metformin 0 Yes [id number] 750mg Take 1 [facility] ER 750 mg 8-23 tablet by ity o f 24 hr 00:00: mouth in [place] tablet 00 the Medical morning Branch and 1 tablet in the evening. Take with meals. empaglifloz 2-0 Yes [id number] 25mg Take 1 [facility] in 8-23 tablet by ity of (JARDIANCE) 00:00: mouth [place] 25 mg Tab 00 every Medical morning. Branch empaglifloz 2-0 Yes [id number] 25mg Take 1 [facility] in 8-23 tablet by ity of (JARDIANCE) 00:00: mouth [place] 25 mg Tab 00 every Medical morning. Branch empaglifloz 2-0 Yes [id number] 25mg Take 1 [facility] in 8-23 tablet by ity of (JARDIANCE) 00:00: mouth [place] 25 mg Tab 00 every Medical morning. Branch empaglifloz 2021-0 Yes [id number] 25mg Take 1 [facility] in 8-23 tablet by ity of (JARDIANCE) 00:00: mouth [place] 25 mg Tab 00 every Medical morning. Branch empaglifloz 2-0 Yes [id number] 25mg Take 1 [facility] in 8-23 tablet by ity of (JARDIANCE) 00:00: mouth [place] 25 mg Tab 00 every Medical morning. Branch empaglifloz 2-0 Yes [id number] 25mg Take 1 [facility] in 8-23 tablet by ity of (JARDIANCE) 00:00: mouth [place] 25 mg Tab 00 every Medical morning. Branch empaglifloz 2-0 Yes [id number] 25mg Take 1 [facility] in 8-23 tablet by ity of (JARDIANCE) 00:00: mouth [place] 25 mg Tab 00 every Medical morning. Branch empaglifloz 2-0 Yes [id number] 25mg Take 1 [facility] in 8-23 tablet by ity of (JARDIANCE) 00:00: mouth [place] 25 mg Tab 00 every Medical morning. Branch insulin 2021-0 Yes [id number] 80U inject 80 [facility] glargine 8-23 Units ity of U-300 conc 00:00: under the [place] (TOUJEO MAX 00 skin Medical U-300 daily. Branch [facility]) E11.65 300 unit/mL (3 mL) InPn dulaglutide 2021-0 Yes [id number] .75mg inject 1 [facility] (TRULICITY) 10-30 Pen under ity of 0.75 mg/0.5 00:00: the skin [place] mL PnIj 00 weekly. Medical Branch metformin Yes [id number] 750mg Take 1 [facility] ER 750 mg 10-30 tablet by ity o f 24 hr 00:00: mouth in [place] tablet 00 the Medical morning Branch and 1 tablet in the evening. Take with meals. empaglifloz Yes [id number] 25mg Take 1 [facility] in 10-30 tablet by ity of (JARDIANCE) 00:00: mouth [place] 25 mg Tab 00 every Medical morning. Branch empaglifloz 2022- No [id number] 25mg Take 1 [facility] in 10-30 tablet by ity of ([place]IANCE) 00:00: 00:[place] 25 [place] Tab 00 :00 every Medical morning. Branch empaglifloz 2022- No [id number] 25mg Take 1 [facility] in 10-30 tablet by ity of (J[place]IANCE) 00:00: 00:[place] 25 [place] Tab 00 :00 every Medical morning. Branch insulin 2022- No [id number] 80U inject 80 [facility] glargine 10-30 Units ity of U-300 conc 00:00: 00:00 under the [place] (TOUJEO MAX 00 :00 skin Medical U-300 daily. Branch [facility]) E11.65 300 unit/mL (3 mL) InPn metformin 2022- No [id number] 750mg Take 1 [facility] ER 750 mg 10-30 tablet by ity of 24 hr 00:00: 00:00 mouth in [place] tablet 00 :00 the Medical morning Branch and 1 tablet in the evening. Take with meals. dulaglutide 2022- No [id number] .75mg inject 1 [facility] (TRULICITY) 10-30 Pen under it y of 0.75 mg/0.5 00:00: 00:00 the skin [place] mL PnIj 00 :00 weekly. Medical Branch ACCU-CHEK Yes TEST 2 Univer s [...] [place] strip 00 Medical Branch ACCU-CHEK 2022-0 2023- No TEST 2 Unive rs GUIDE TEST 10-20 TIMES ity of STRIPS 00:00: 00:00 DAILY [place] strip 00 :00 Medical Branch ACCU-CHEK 2022-0 2023- No TEST 2 Unive rs GUIDE TEST 10-20 TIMES ity of STRIPS 00:00: 00:00 DAILY [place] strip 00 :00 Medical Branch gabapentin 2022-0 Yes Univers 300 mg 8-12 ity of capsule 00:00: [place] 00 Medical Branch gabapentin 2022-0 Yes [facility] 300 mg 8-12 ity of capsule 00:00: [place] [address] Medical Branch gabapentin 2022-0 Yes [facility] 300 mg 8-12 ity of capsule 00:00: [place] [address] Medical Branch gabapentin 2022-0 Yes [facility] 300 mg 8-12 ity of capsule 00:00: [place] [address] Medical Branch gabapentin 2022-0 Yes [facility] 300 mg 8-12 ity of capsule 00:00: [place] [address] Medical Branch gabapentin 2022-0 Yes [facility] 300 mg 8-12 ity of capsule 00:00: [place] [address] Medical Branch gabapentin 2022-0 Yes [facility] 300 mg 8-12 ity of capsule 00:00: [place] [address] Medical Branch gabapentin 2022-0 Yes [facility] 300 mg 8-12 ity of capsule 00:00: [place] [address] Medical Branch gabapentin 2022-0 Yes [facility] 300 mg 8-12 ity of capsule 00:00: [place] [address] Medical Branch gabapentin 2022-0 Yes [facility] 300 mg 8-12 ity of capsule 00:00: [place] [address] Medical Branch gabapentin 2022-0 Yes [facility] 300 mg 8-12 ity of capsule 00:00: [place] [address] Medical Branch gabapentin 2022-0 Yes [facility] 300 mg 8-12 ity of capsule 00:00: [place] [address] Medical Branch gabapentin 2022-0 Yes [facility] 300 mg 8-12 ity of capsule 00:00: [place] [address] Medical Branch gabapentin 2022-0 Yes [facility] 300 mg 8-12 ity of capsule 00:00: [place] [address] Medical Branch gabapentin 2022-0 Yes [facility] 300 mg 8-12 ity of capsule 00:00: [place] [address] Medical Branch gabapentin 2022-0 Yes [facility] 300 mg 8-12 ity of capsule 00:00: [place] [address] Medical Branch gabapentin 2022-0 Yes [facility] 300 mg 8-12 ity of capsule 00:00: [place] 00 Medical Branch gabapentin 2022-0 Yes [facility] 300 mg 8-12 ity of capsule 00:00: [place] 00 Medical Branch gabapentin 2022-0 Yes [facility] 300 mg 8-12 ity of capsule 00:00: [place] 00 Medical Branch gabapentin 2022-0 Yes [facility] 300 mg 8-12 ity of capsule 00:00: [place] 00 Medical Branch gabapentin 2022-0 2023- No Univer s 300 mg -11-12 ity of capsule 00:00: 00:00 [place] 00 :00 Medical Branch gabapentin 2022-0 2023- No Univer s 300 mg 10-19- ity of capsule 00:00: 00:00 [place] 00 :00 Medical Branch Nystatin Nystatin 2021-0 2022- No 1{appli BID Nystatin [id number] 8- 08-25 cation_ [id number] UNIT/GM UNIT/GM 00:00: 00:00 to_affe UNIT/GM 00 :00 cted_ar ea} Mupirocin 2 Mupirocin 2 2021-0 2021- No TID Mupirocin % % 8- 08-25 2 % 00:00: 00:00 00 :00 Nystatin Nystatin 2021-0 2022- No 1{appli BID Nystatin [id number] 8- 08-25 cation_ [id number] UNIT/GM UNIT/GM 00:00: 00:00 to_affe UNIT/GM 00 :00 cted_ar ea} Mupirocin 2 Mupirocin 2 2021-0 2022- No TID Mupirocin % % 8- 08-25 2 % 00:00: 00:00 00 :00 Nystatin Nystatin 2021-0 2022- No 1{appli BID Nystatin [id number] 8- 08-25 cation_ [id number] UNIT/GM UNIT/GM 00:00: 00:00 to_affe UNIT/GM 00 :00 cted_ar ea} Mupirocin 2 Mupirocin 2 2021-0 2021- No TID Mupirocin % % 8- 08-25 2 % 00:00: 00:00 00 :00 JANUMET 2021-0 2022- No Univers 50-1,000 mg 09-29 08- ity of per tablet 00:00: 00:00 [place] 00 :00 Medical Branch JANUMET 2022-0 2022- No Univers 50-1,000 mg 09-29 ity of per tablet 00:00: 00:00 [place] 00 :00 Medical Branch losartan 50 2022-0 Yes Univer s mg tablet 09-14 ity of 00:00: [place] 00 Medical Branch losartan 50 2022-0 Yes Univer s mg tablet 09-14 ity of 00:00: [place] 00 Medical Branch losartan 50 2022-0 Yes Univer s mg tablet 09-14 ity of 00:00: [place] 00 Medical Branch losartan 50 2022-0 Yes Univer s mg tablet 09-14 ity of 00:00: [place] 00 Medical Branch losartan 50 2022-0 Yes Univer s mg tablet 09-14 ity of 00:00: [place] 00 Medical Branch losartan 50 2022-0 Yes Univer s mg tablet 09-14 ity of 00:00: [place] 00 Medical Branch losartan 50 2022-0 Yes Univer s mg tablet 09-14 ity of 00:00: [place] 00 Medical Branch losartan 50 2022-0 Yes Univer s mg tablet 09-14 ity of 00:00: [place] [address] Medical Branch losartan 50 2022-0 Yes Univer s mg tablet 09-14 ity of 00:00: [place] 00 Medical Branch losartan 50 2022-0 Yes Univer s mg tablet 09-14 ity of 00:00: [place] 00 Medical Branch losartan 50 2022-0 Yes Univer s mg tablet 09-14 ity of 00:00: [place] 00 Medical Branch losartan 50 2022-0 Yes Univer s mg tablet 09-14 ity of 00:00: [place] 00 Medical Branch losartan 50 2022-0 Yes Univer s mg tablet 09-14 ity of 00:00: [place] 00 Medical Branch losartan 50 2022-0 Yes Univer s mg tablet 09-14 ity of 00:00: [place] 00 Medical Branch losartan 50 2022-0 Yes Univer s mg tablet 09-14 ity of 00:00: [place] 00 Medical Branch losartan 50 2022-0 Yes Univer s mg tablet 09-14 ity of 00:00: [place] 00 Medical Branch losartan 50 2022-0 Yes Univer s mg tablet 09-14 ity of 00:00: [place] 00 Medical Branch losartan 50 2022-0 Yes Univer s mg tablet 09-14 ity of 00:00: Medical Branch losartan 50 2-0 Yes Univer s mg tablet 09-14 ity of 00:00: Medical Branch losartan 50 2-0 Yes Univer s mg tablet 09-14 ity of 00:00: Medical Branch losartan 50 2-0 Yes Univer s mg tablet 09-14 ity of 00:00: Medical Branch losartan 50 2-0 Yes Univer s mg tablet 09-14 ity of 00:00: Medical Branch losartan 50 2-0 Yes Univer s mg tablet 09-14 ity of 00:00: Medical Branch losartan 50 2021-0 Yes Univer s mg tablet 09-14 ity of 00:00: Medical Branch Losartan Losartan [...] 40 MG 00 Chantix 1 Chantix 1 2021-2021- No BID Chantix 1 MG MG 5-27 08-25 MG 00:00: 00:00 00 :00 Chantix 1 Chantix 1 2021-0 2021- No BID Chantix 1 MG MG [...] by mouth ity of tablet 11:57: daily. [address] benzonatate Yes 100{cap Take 100 Univers 100 mg 2-22 elizabeth} capsules ity of capsule 11:57: by mouth [place] 13 daily. Medical Branch vortioxetin Yes 20mg Take 20 mg Univers e 2-22 by mouth ity of ([place] 20 mg [facility] Medical Branch ursodioL Yes 250mg Take 250 Univ ers 250 mg 2-22 mg by ity of tablet 11:57: mouth [place] 13 daily. Medical Branch pantoprazol Yes 40mg Take 40 mg Univers e 40 mg EC 2-22 by mouth ity o f tablet 11:57: daily. [address] levothyroxi 0 Yes 75ug Take 75 Uni vers ne 75 mcg 2-22 mcg by ity of tablet 11:57: mouth [place] 13 every Medical morning. Branch busPIRone Yes 15mg Take 15 mg Un andre 15 mg 2-22 by mouth ity of tablet 11:57: daily. [place] 13 Medical Branch cetirizine 0 Yes 10mg Take 10 mg U nivers 10 mg 2-22 by mouth ity of tablet 11:57: daily. [address] Branch pravastatin 0 Yes 20mg Take 20 mg Univers 20 mg 2-22 by mouth ity of tablet 11:57: daily. [place] [address] Medical [place] benzonatate 0 Yes 100{cap Take 100 Univers [...] mouth ity o f tablet 11:57: daily. [place] [address] Medical Branch levothyroxi 0 Yes 75ug Take 75 Uni vers ne 75 mcg 2-22 mcg by ity of tablet 11:57: mouth [place] 13 every Medical morning. Branch busPIRone 0 Yes 15mg Take 15 mg Un andre 15 mg 2-22 by mouth ity of tablet 11:57: daily. [address] cetirizine 0 Yes 10mg Take 10 mg U nivers 10 mg 2-22 by mouth ity of tablet 11:57: daily. [address] pravastatin 0 Yes 20mg Take 20 mg Univers 20 mg 2-22 by mouth ity of tablet 11:57: daily. [address] Branch benzonatate 0 Yes 100{cap Take 100 [...] mouth ity o f tablet 11:57: daily. [place] [address] Medical Branch levothyroxi 0 Yes 75ug Take 75 Uni vers ne 75 mcg 2-22 mcg by ity of tablet 11:57: mouth [place] 13 every Medical morning. Branch busPIRone 0 Yes 15mg Take 15 mg Un andre 15 mg 2-22 by mouth ity of tablet 11:57: daily. [place] [address] Medical Branch cetirizine 0 Yes 10mg Take 10 mg U nivers 10 mg 2-22 by mouth ity of tablet 11:57: daily. [address] Branch pravastatin 0 Yes 20mg Take 20 mg Univers 20 mg 2-22 by mouth ity of tablet 11:57: daily. [address] benzonatate 0 Yes 100{cap Take 100 [facility] 100 mg 2-22 elizabeth} capsules ity of capsule 11:57: by mouth [place] 13 daily. Medical Branch vortioxetin 0 Yes 20mg Take 20 mg [facility] e 2-22 by mouth ity of ([place] 20 mg [facility] Medical Branch ursodioL 0 Yes 250mg Take 250 Univ ers 250 mg 2-22 mg by ity of tablet 11:57: mouth [place] 13 daily. Medical Branch pantoprazol 0 Yes 40mg Take 40 mg Univers e 40 mg EC 2-22 by mouth ity o f tablet 11:57: daily. [place] [address] Medical Branch levothyroxi 0 Yes 75ug Take 75 Uni vers ne 75 mcg 2-22 mcg by ity of tablet 11:57: mouth [place] 13 every Medical morning. Branch busPIRone 0 Yes 15mg Take 15 mg Un andre 15 mg 2-22 by mouth ity of tablet 11:57: daily. [address] cetirizine 0 Yes 10mg Take 10 mg U nivers 10 mg 2-22 by mouth ity of tablet 11:57: daily. [address] pravastatin 0 Yes 20mg Take 20 mg Univers 20 mg 2-22 by mouth ity of tablet 11:57: daily. [place] 13 Medical Branch benzonatate Yes 100{cap Take 100 [...] mouth ity o f tablet 11:57: daily. [place] [address] Medical Branch levothyroxi 0 Yes 75ug Take 75 Uni vers ne 75 mcg 2-22 mcg by ity of tablet 11:57: mouth [place] 13 every Medical morning. Branch busPIRone Yes 15mg Take 15 mg Un andre 15 mg 2-22 by mouth ity of tablet 11:57: daily. [place] [address] Medical Branch cetirizine 0 Yes 10mg Take 10 mg U nivers 10 mg 2-22 by mouth ity of tablet 11:57: daily. [address] Branch pravastatin 0 Yes 20mg Take 20 mg Univers 20 mg 2-22 by mouth ity of tablet 11:57: daily. [address] benzonatate 0 Yes 100{cap Take 100 [...] mouth ity o f tablet 11:57: daily. [place] [address] Medical Branch levothyroxi 0 Yes 75ug Take 75 Uni vers ne 75 mcg 2-22 mcg by ity of tablet 11:57: mouth [place] 13 every Medical morning. Branch busPIRone 0 Yes 15mg Take 15 mg Un andre 15 mg 2-22 by mouth ity of tablet 11:57: daily. [address] cetirizine 0 Yes 10mg Take 10 mg U nivers 10 mg 2-22 by mouth ity of tablet 11:57: daily. [address] pravastatin 0 Yes 20mg Take 20 mg Univers 20 mg 2-22 by mouth ity of tablet 11:57: daily. [address] benzonatate 0 Yes 100{cap Take 100 Univers 100 mg 2-22 elizabeth} capsules ity of capsule 11:57: by mouth [place] 13 daily. [facility] Branch vortioxetin 0 Yes 20mg Take 20 mg Univers e 2-22 by mouth ity of ([place] [address] Branch ursodioL 0 Yes 250mg Take 250 Univ ers 250 mg 2-22 mg by ity of tablet 11:57: mouth [place] 13 daily. [facility] Branch pantoprazol 0 Yes 40mg Take 40 mg Univers e 40 mg EC 2-22 by mouth ity o f tablet 11:57: daily. [address] levothyroxi 0 Yes 75ug Take 75 Uni vers ne 75 mcg 2-22 mcg by ity of tablet 11:57: mouth [place] 13 every Medical morning. Branch busPIRone 0 Yes 15mg Take 15 mg Un andre 15 mg 2-22 by mouth ity of tablet 11:57: daily. [address] cetirizine 0 Yes 10mg Take 10 mg U nivers 10 mg 2-22 by mouth ity of tablet 11:57: daily. [address] pravastatin 0 Yes 20mg Take 20 mg Univers 20 mg 2-22 by mouth ity of tablet 11:57: daily. [address] benzonatate 0 Yes 100{cap Take 100 Univers 100 mg 2-22 elizabeth} capsules ity of capsule 11:57: by mouth [place] 13 daily. [facility] Branch vortioxetin 0 Yes 20mg Take 20 [...] mouth ity o f tablet 11:57: daily. [place] [address] Medical Branch levothyroxi 0 Yes 75ug Take 75 Uni vers ne 75 mcg 2-22 mcg by ity of tablet 11:57: mouth [place] 13 every Medical morning. Branch busPIRone 0 Yes 15mg Take 15 mg Un andre 15 mg 2-22 by mouth ity of tablet 11:57: daily. [place] [address] Medical Branch cetirizine 0 Yes 10mg Take 10 mg U nivers 10 mg 2-22 by mouth ity of tablet 11:57: daily. [place] [address] Medical Branch pravastatin 0 Yes 20mg Take 20 mg Univers 20 mg 2-22 by mouth ity of tablet 11:57: daily. [place] [address] Medical Branch benzonatate 0 Yes 100{cap Take [...] mouth ity o f tablet 11:57: daily. [place] 13 Medical Branch levothyroxi 0 Yes 75ug Take 75 Uni vers ne 75 mcg 2-22 mcg by ity of tablet 11:57: mouth [place] 13 every Medical morning. Branch busPIRone 0 Yes 15mg Take 15 mg Un andre 15 mg 2-22 by mouth ity of tablet 11:57: daily. [place] [address] Medical Branch cetirizine 0 Yes 10mg Take 10 mg U nivers 10 mg 2-22 by mouth ity of tablet 11:57: daily. [place] [address] Medical Branch pravastatin 0 Yes 20mg Take 20 mg Univers 20 mg 2-22 by mouth ity of tablet 11:57: daily. [place] [address] Medical Branch benzonatate 0 Yes 100{cap Take [...] mouth ity o f tablet 11:57: daily. [place] [address] Medical Branch levothyroxi 0 Yes 75ug Take 75 Uni vers ne 75 mcg 2-22 mcg by ity of tablet 11:57: mouth [place] 13 every Medical morning. Branch busPIRone 0 Yes 15mg Take 15 mg Un andre 15 mg 2-22 by mouth ity of tablet 11:57: daily. [place] [address] Medical Branch cetirizine 0 Yes 10mg Take 10 mg U nivers 10 mg 2-22 by mouth ity of tablet 11:57: daily. [place] [address] Medical Branch pravastatin 0 Yes 20mg Take 20 mg Univers 20 mg 2-22 by mouth ity of tablet 11:57: daily. [place] [address] Medical Branch benzonatate 0 Yes 100{cap Take [...] mouth ity o f tablet 11:57: daily. [address] levothyroxi 0 Yes 75ug Take 75 Uni vers ne 75 mcg 2-22 mcg by ity of tablet 11:57: mouth [place] 13 every Medical morning. Branch busPIRone 0 Yes 15mg Take 15 mg Un andre 15 mg 2-22 by mouth ity of tablet 11:57: daily. [address] cetirizine 0 Yes 10mg Take 10 mg U nivers 10 mg 2-22 by mouth ity of tablet 11:57: daily. [address] pravastatin 0 Yes 20mg Take 20 mg Univers 20 mg 2-22 by mouth ity of tablet 11:57: daily. [address] benzonatate 0 Yes 100{cap Take 100 Univers 100 mg 2-22 elizabeth} capsules ity of capsule 11:57: by mouth [place] 13 daily. [facility] vortioxetin 0 Yes 20mg Take 20 mg Univers e 2-22 by mouth ity of ([place] [address] ursodioL Yes 250mg Take 250 Univ ers 250 mg 2-22 mg by ity of tablet 11:57: mouth [place] 13 daily. [facility] pantoprazol 0 Yes 40mg Take 40 mg Univers e 40 mg EC 2-22 by mouth ity o f tablet 11:57: daily. [address] levothyroxi 0 Yes 75ug Take 75 Uni vers ne 75 mcg 2-22 mcg by ity of tablet 11:57: mouth [place] 13 every Medical morning. Branch busPIRone 0 Yes 15mg Take 15 mg Un andre 15 mg 2-22 by mouth ity of tablet 11:57: daily. [address] cetirizine 0 Yes 10mg Take 10 mg U nivers 10 mg 2-22 by mouth ity of tablet 11:57: daily. [address] pravastatin 0 Yes 20mg Take 20 mg Univers 20 mg 2-22 by mouth ity of tablet 11:57: daily. [address] benzonatate 0 Yes 100{cap Take 100 Univers 100 mg 2-22 elizabeth} capsules ity of capsule 11:57: by mouth [place] 13 daily. [facility] vortioxetin Yes 20mg Take 20 mg Univers [...] mouth ity o f tablet 11:57: daily. [place] [address] Medical Branch levothyroxi 0 Yes 75ug Take 75 Uni vers ne 75 mcg 2-22 mcg by ity of tablet 11:57: mouth [place] 13 every Medical morning. Branch busPIRone 0 Yes 15mg Take 15 mg Un andre 15 mg 2-22 by mouth ity of tablet 11:57: daily. [place] [address] Medical Branch cetirizine 0 Yes 10mg Take 10 mg U nivers 10 mg 2-22 by mouth ity of tablet 11:57: daily. [place] [address] Medical Branch pravastatin 0 Yes 20mg Take 20 mg Univers 20 mg 2-22 by mouth ity of tablet 11:57: daily. [place] [address] Medical Branch benzonatate 0 Yes 100{cap Take [...] mouth ity o f tablet 11:57: daily. [place] [address] Medical Branch levothyroxi 0 Yes 75ug Take 75 Uni vers ne 75 mcg 2-22 mcg by ity of tablet 11:57: mouth [place] 13 every Medical morning. Branch busPIRone 0 Yes 15mg Take 15 mg Un andre 15 mg 2-22 by mouth ity of tablet 11:57: daily. [place] [address] Medical Branch cetirizine 0 Yes 10mg Take 10 mg U nivers 10 mg 2-22 by mouth ity of tablet 11:57: daily. [place] [address] Medical Branch pravastatin 0 Yes 20mg Take 20 mg Univers 20 mg 2-22 by mouth ity of tablet 11:57: daily. [place] [address] Medical [place] benzonatate 0 Yes 100{cap Take 100 Univers [...] mouth ity o f tablet 11:57: daily. [place] [address] Medical Branch levothyroxi 0 Yes 75ug Take 75 Uni vers ne 75 mcg 2-22 mcg by ity of tablet 11:57: mouth [place] 13 every Medical morning. Branch busPIRone 0 Yes 15mg Take 15 mg Un andre 15 mg 2-22 by mouth ity of tablet 11:57: daily. [address] cetirizine 0 Yes 10mg Take 10 mg U nivers 10 mg 2-22 by mouth ity of tablet 11:57: daily. [address] pravastatin 0 Yes 20mg Take 20 mg Univers 20 mg 2-22 by mouth ity of tablet 11:57: daily. [address] Branch benzonatate 0 Yes 100{cap Take 100 [...] mouth ity o f tablet 11:57: daily. [place] [address] Medical Branch levothyroxi 0 Yes 75ug Take 75 Uni vers ne 75 mcg 2-22 mcg by ity of tablet 11:57: mouth [place] 13 every Medical morning. Branch busPIRone 0 Yes 15mg Take 15 mg Un andre 15 mg 2-22 by mouth ity of tablet 11:57: daily. [place] [address] Medical Branch cetirizine 0 Yes 10mg Take 10 mg U nivers 10 mg 2-22 by mouth ity of tablet 11:57: daily. [address] pravastatin 0 Yes 20mg Take 20 mg Univers 20 mg 2-22 by mouth ity of tablet 11:57: daily. [address] benzonatate 0 Yes 100{cap Take 100 [facility] 100 mg 2-22 elizabeth} capsules ity of capsule 11:57: by mouth [place] 13 daily. Medical Branch vortioxetin 0 Yes 20mg Take 20 mg [facility] e 2-22 by mouth ity of ([place] [address] Branch ursodioL 0 Yes 250mg Take 250 Univ ers 250 mg 2-22 mg by ity of tablet 11:57: mouth [place] 13 daily. Medical Branch pantoprazol 0 Yes 40mg Take 40 mg Univers e 40 mg EC 2-22 by mouth ity o f tablet 11:57: daily. [place] [address] Medical [place] levothyroxi 0 Yes 75ug Take 75 Uni vers ne 75 mcg 2-22 mcg by ity of tablet 11:57: mouth [place] 13 every Medical morning. Branch busPIRone 0 Yes 15mg Take 15 mg Un andre 15 mg 2-22 by mouth ity of tablet 11:57: daily. [address] cetirizine 0 Yes 10mg Take 10 mg U nivers 10 mg 2-22 by mouth ity of tablet 11:57: daily. [address] pravastatin 0 Yes 20mg Take 20 mg Univers 20 mg 2-22 by mouth ity of tablet 11:57: daily. [place] 13 Medical Branch benzonatate 0 Yes 100{cap [...] mouth ity o f tablet 11:57: daily. [place] [address] Medical Branch levothyroxi 0 Yes 75ug Take 75 Uni vers ne 75 mcg 2-22 mcg by ity of tablet 11:57: mouth [place] 13 every Medical morning. Branch busPIRone 0 Yes 15mg Take 15 mg Un [facility]re 15 mg 2-22 by mouth ity of tablet 11:57: daily. [place] [address] Medical Branch cetirizine 0 Yes 10mg Take 10 mg U nivers 10 mg 2-22 by mouth ity of tablet 11:57: daily. [address] pravastatin 0 Yes 20mg Take 20 mg Univers 20 mg 2-22 by mouth ity of tablet 11:57: daily. [address] benzonatate 0 Yes 100{cap Take 100 [...] mouth ity o f tablet 11:57: daily. [place] [address] Medical Branch levothyroxi 0 Yes 75ug Take 75 Uni vers ne 75 mcg 2-22 mcg by ity of tablet 11:57: mouth [place] 13 every Medical morning. Branch busPIRone 0 Yes 15mg Take 15 mg Un andre 15 mg 2-22 by mouth ity of tablet 11:57: daily. [address] cetirizine 0 Yes 10mg Take 10 mg U nivers 10 mg 2-22 by mouth ity of tablet 11:57: daily. [address] pravastatin 0 Yes 20mg Take 20 mg Univers 20 mg 2-22 by mouth ity of tablet 11:57: daily. [address] benzonatate 0 Yes 100{cap Take 100 Univers 100 mg 2-22 elizabeth} capsules ity of capsule 11:57: by mouth [place] 13 daily. [facility] Branch vortioxetin 0 Yes 20mg Take 20 mg Univers e 2-22 by mouth it[place] [address] Branch ursodioL 0 Yes 250mg Take 250 Univ ers 250 mg 2-22 mg by ity of tablet 11:57: mouth [place] 13 daily. Medical Branch pantoprazol 0 Yes 40mg Take 40 mg Univers e 40 mg EC 2-22 by mouth ity o f tablet 11:57: daily. [address] levothyroxi 0 Yes 75ug Take 75 Uni vers ne 75 mcg 2-22 mcg by ity of tablet 11:57: mouth [place] 13 every Medical morning. Branch busPIRone 0 Yes 15mg Take 15 mg Un andre 15 mg 2-22 by mouth ity of tablet 11:57: daily. [address] cetirizine 0 Yes 10mg Take 10 mg U nivers 10 mg 2-22 by mouth ity of tablet 11:57: daily. [address] pravastatin 0 Yes 20mg Take 20 mg Univers 20 mg 2-22 by mouth ity of tablet 11:57: daily. [address] benzonatate 0 Yes 100{cap Take 100 Univers 100 mg 2-22 elizabeth} capsules ity of capsule 11:57: by mouth [place] 13 daily. [facility] Branch vortioxetin 0 Yes 20mg Take 20 [...] mouth ity o f tablet 11:57: daily. [place] [address] Medical Branch levothyroxi 0 Yes 75ug Take 75 Uni vers ne 75 mcg 2-22 mcg by ity of tablet 11:57: mouth [place] 13 every Medical morning. Branch busPIRone 0 Yes 15mg Take 15 mg Un andre 15 mg 2-22 by mouth ity of tablet 11:57: daily. [place] [address] Medical Branch cetirizine 0 Yes 10mg Take 10 mg U nivers 10 mg 2-22 by mouth ity of tablet 11:57: daily. [place] [address] Medical Branch pravastatin 0 Yes 20mg Take 20 mg Univers 20 mg 2-22 by mouth ity of tablet 11:57: daily. [place] [address] Medical Branch benzonatate 0 Yes 100{cap Take [...] mouth ity o f tablet 11:57: daily. [place] 13 Medical Branch levothyroxi 0 Yes 75ug Take 75 Uni vers ne 75 mcg 2-22 mcg by ity of tablet 11:57: mouth [place] 13 every Medical morning. Branch busPIRone 0 Yes 15mg Take 15 mg Un andre 15 mg 2-22 by mouth ity of tablet 11:57: daily. [place] [address] Medical Branch cetirizine 0 Yes 10mg Take 10 mg U nivers 10 mg 2-22 by mouth ity of tablet 11:57: daily. [place] [address] Medical Branch pravastatin Yes 20mg Take 20 mg Univers 20 mg 2-22 by mouth ity of tablet 11:57: daily. [place] [address] Medical Branch benzonatate 0 Yes 100{cap Take [...] mouth ity o f tablet 11:57: daily. [place] [address] Medical Branch levothyroxi 0 Yes 75ug Take 75 Uni vers ne 75 mcg 2-22 mcg by ity of tablet 11:57: mouth [place] 13 every Medical morning. Branch busPIRone Yes 15mg Take 15 mg Un andre 15 mg 2-22 by mouth ity of tablet 11:57: daily. [place] [address] Medical Branch cetirizine 0 Yes 10mg Take 10 mg U nivers 10 mg 2-22 by mouth ity of tablet 11:57: daily. [place] [address] Medical Branch pravastatin Yes 20mg Take 20 mg Univers 20 mg 2-22 by mouth ity of tablet 11:57: daily. [place] [address] Medical Branch benzonatate 0 Yes 100{cap Take [...] mouth ity o f tablet 11:57: daily. [place] [address] Medical [place] levothyroxi Yes 75ug Take 75 Uni vers ne 75 mcg 2-22 mcg by ity of tablet 11:57: mouth [place] [address] every Medical morning. Branch busPIRone Yes 15mg Take 15 mg Un andre 15 mg 2-22 by mouth ity of tablet 11:57: daily. [address] cetirizine 0 Yes 10mg Take 10 mg U nivers 10 mg 2-22 by mouth ity of tablet 11:57: daily. [address] Varenicline Varenicline 2021- No QD Vareniclin [...] MG 00:00: 00:00 00 :00 Azithromyci Azithromyci 2020-031- No QD [...] 14 Serv[place] 14 1-29 Servando 14 Day [place] Day [place] 00:00: Day [place] - - 00 - FreeStyle FreeStyle 1-0 No FreeStyle Servando 14 Servando 14 1-29 Servando 14 Day Sensor Day Sensor 00:00: Day Sensor - - 00 - FreeStyle FreeStyle 1-0 No QD FreeStyle Servando 14 Servando 14 1-29 Servando 14 Day [place] Day [place] 00:00: Day [place] - - 00 - FreeStyle FreeStyle 1-0 No FreeStyle Servando 14 Servando 14 1-29 Servando 14 Day Sensor Day Sensor 00:00: Day Sensor - - 00 - FreeStyle FreeStyle 1-0 No QD FreeStyle Servando 14 Servando 14 1-29 Servando 14 Day [place] Day [place] 00:00: Day [place] - - 00 - FreeStyle FreeStyle 1-0 No FreeStyle Servando 14 Servando 14 1-29 Servando 14 Day Sensor Day Sensor 00:00: Day Sensor - - 00 - FreeStyle FreeStyle 1-0 No QD FreeStyle Servando 14 Servando 14 1-29 Servando 14 Day [place] Day [place] 00:00: Day [place] - - 00 - FreeStyle FreeStyle 1-0 No FreeStyle Servando 14 Servando 14 1-29 Servando 14 Day Sensor Day Sensor 00:00: Day Sensor - - 00 - FreeStyle FreeStyle 1-0 No QD FreeStyle Servando 14 Servando 14 1-29 Servando 14 Day [place] Day [place] 00:00: Day [place] - - 00 - FreeStyle FreeStyle 2021-0 No QD FreeStyle Servando 14 Servando 14 1-29 Servando 14 Day [place] Day [place] 00:00: Day [place] - - 00 - FreeStyle FreeStyle 1-0 No FreeStyle Servando 14 Servando 14 1-29 Servando 14 Day Sensor Day Sensor 00:00: Day Sensor - - 00 - FreeStyle FreeStyle 1-0 No QD FreeStyle Servando 14 Servando 14 1-29 Servando 14 Day [place] Day [place] 00:00: Day [place] - - 00 - FreeStyle FreeStyle 1-0 No FreeStyle Servando 14 Servando 14 1-29 Servando 14 Day Sensor Day Sensor 00:00: Day Sensor - - 00 - FreeStyle FreeStyle 1-0 No QD FreeStyle Servando 14 Servando 14 1-29 Servando 14 Day [place] Day [place] 00:00: Day [place] - - 00 - FreeStyle FreeStyle 1-0 [...] 14 Servando 14 1-29 Servando 14 Day [place] Day [place] 00:00: Day [place] - - 00 - FreeStyle FreeStyle 1-0 No FreeStyle Servando 14 Servando 14 1-29 Servando 14 Day Sensor Day Sensor 00:00: Day Sensor - - 00 - FreeStyle FreeStyle 1-0 No QD FreeStyle Servando 14 Servando 14 1-29 Servando 14 Day [place] Day [place] 00:00: Day [place] - - 00 - FreeStyle FreeStyle 1-0 No FreeStyle Servando 14 Servando 14 1-29 Servando 14 Day Sensor Day Sensor 00:00: Day Sensor - - 00 - FreeStyle FreeStyle 1-0 No QD FreeStyle Servando 14 Servando 14 1-29 Servando 14 Day [place] Day [place] 00:00: Day [place] - - 00 - Flonase 50 Flonase 50 2020-1 No 2{spray [...] Spirit 00:00: 00:00 - [facility] 00 :00 [facility] Bactrim DS Bactrim DS 2020-0 2020- No [place] 1 tablet Common 11-22 Spirit 00:00: 00:00 - [facility]I 00 :00 [facility] Ursodiol Ursodiol 2020-0 Yes Na [place] 1 tablet Common 11-16 with food [facility] 00:00: - [facility] 00 [facility] Triamcinolo Triamcinolo 2020-0 Yes Na [place] 1 Common ne ne 2-14 applicatio [facility] Acetonide Acetonide 00:00: n to - C HI 00 affected [facility] Triamcinolo Triamcinolo 2020-0 No 1{appli BID Triamcinol [...] Spirit Tube/Plugs Tube/Plugs 00:00: - CHI 00 [facility] Nebulizer Nebulizer No Nebulizer Air [...] Tube/Plugs Tube/Plugs 00:00: Tube/Plugs - - - Celecoxib Celecoxib Yes Na [place]uelas 1 capsule Common with food [facility] Pantoprazol Pantoprazol Yes Na [place] TAKE 1 Common e Sodium e Sodium TABLET BY valorie MOUTH - CHI EVERY DAY [facility] Albuterol Albuterol Yes Na [place] 3 ml as Common Sulfate Sulfate needed [facility] Levothyroxi Levothyroxi Yes Na [place] TAKE 1 Common ne Sodium ne Sodium TABLET BY [facility] EVERY DAY St IN THE MORNING ON Medical AN EMPTY Center STOMACH Janumet Janumet Yes Na [place] 1 tablet Co mmon with meals [facility] BusPIRone BusPIRone Yes Na [place] 1 tablet Common HCl HCl [facility] Ursodiol Ursodiol Yes [place] as Comm on directed [facility] Gabapentin Gabapentin Yes Na [place] 1 capsule Common [facility] Aspir-Low Aspir-Low Yes Na Ruelas 1 tablet [facility] Oxybutynin Oxybutynin Yes Na Ruelas 1 tablet Common Chloride Chloride [facility] Trintellix Trintellix Yes Na [place] 1 tablet Common [facility] Trintellix Trintellix No Trintellix 20 MG [...] Besylate 5 Besylate 5 MG MG MG Fluticasone Fluticasone No Fluticason Propionate Propionate e 50 MCG/ACT 50 MCG/ACT Propionate 50 MCG/ACT Levothyroxi Levothyroxi No Levothyrox ne Sodium ne Sodium ine Sodium 75 MCG 75 MCG 75 MCG Pravastatin Pravastatin No Pravastati Sodium 20 Sodium 20 n Sodium MG MG [address] TobraD[address] No 1{drop_ QID TobraDex 0.3-0.05 % 0.3-0.05 % into_af ST fected_ 0.3-0.05 % eye} BD Pen BD Pen No QD BD Pen Needle Janet Needle Janet Needle 2nd Gen 32G 2nd Gen 32G Janet 2nd X 4 MM X 4 MM Gen 32G X 4 MM metFORMIN metFORMIN No 1{table BID metFORMIN HCl ER 750 HCl ER 750 t} HCl ER 750 MG MG MG busPIRone busPIRone No busPIRone HCl 15 MG HCl 15 MG HCl 15 MG Nebulizer Nebulizer No Nebulizer Air Air Air Tube/Plugs Tube/Plugs Tube/Plugs - - - Ursodiol Ursodiol No Ursodiol 250 MG 250 MG 250 MG Breztri Breztri No 2{puffs BID Breztri Aerosphere Aerosphere } Aerosphere 160-9-4.8 160-9-4.8 160-9-4.8 MCG/ACT MCG/ACT MCG/ACT Pantoprazol Pantoprazol No 1{table QD Pantoprazo e Sodium 40 e Sodium 40 t} le Sodium MG MG 40 MG Albuterol Albuterol No 3{ml_as TID Albuterol Sulfate Sulfate _needed Sulfate (2.5 (2.5 } (2.5 MG/3ML) MG/3ML) MG/3ML) 0.083% 0.083% 0.083% amLODIPine amLODIPine No amLODIPine Besylate 5 Besylate 5 Besylate 5 MG MG MG Benzonatate Benzonatate No 1{capsu TID Benzonatat 100 MG 100 MG le_as_n e 100 MG eeded} Gabapentin Gabapentin No Gabapentin 300 MG 300 MG 300 MG Losartan Losartan No 1{table QD Losartan Potassium Potassium t} Potassium 100 MG 100 MG 100 MG Accu-Chek Accu-Chek No Accu-Chek Softclix Softclix Softclix Lancets - Lancets - Lancets - Multivitami Multivitami No Multivitam n Adult n Adult in Adult Aspir-Low Aspir-Low No 1{table QD Aspir-Low 81 MG 81 MG t} 81 MG Trulicity Trulicity No Trulicity 1.5 1.5 1.5 MG/0.5ML MG/0.5ML MG/0.5ML Trintellix Trintellix No Trintellix 20 MG 20 MG 20 MG Varenicline Varenicline No Vareniclin Tartrate 1 Tartrate 1 e Tartrate MG MG 1 MG Toujeo Toujeo No Toujeo SoloStar SoloStar SoloStar 300 UNIT/ML 300 UNIT/ML 300 UNIT/ML Cetirizine Cetirizine No 1{table QD Cetirizine HCl 10 MG HCl 10 MG t} HCl 10 MG Pravastatin Pravastatin No Pravastati Sodium 20 Sodium 20 n Sodium MG MG 20 MG Levothyroxi Levothyroxi No Levothyrox ne Sodium ne Sodium ine Sodium 75 MCG 75 MCG 75 MCG Cetirizine Cetirizine No 1{table QD Cetirizine HCl 10 MG HCl 10 MG t} HCl [address] TobraD[address] No 1{drop_ QID TobraDex 0.3-0.05 % 0.3-0.05 % into_af ST fected_ 0.3-0.05 % eye} busPIRone busPIRone No busPIRone HCl 15 MG HCl 15 MG HCl 15 MG Multivitami Multivitami No Multivitam n Adult n Adult in Adult Fluticasone Fluticasone No Fluticason Propionate Propionate e 50 MCG/ACT 50 MCG/ACT Propionate 50 MCG/ACT Trintellix Trintellix No Trintellix 20 MG 20 MG 20 MG BD Pen BD Pen No QD BD Pen Needle Janet Needle Janet Needle 2nd Gen 32G 2nd Gen 32G Janet 2nd X 4 MM X 4 MM Gen 32G X 4 MM Breztri Breztri No 2{puffs BID Breztri Aerosphere Aerosphere } Aerosphere 160-9-4.8 160-9-4.8 160-9-4.8 MCG/ACT MCG/ACT MCG/ACT Pantoprazol Pantoprazol No 1{table QD Pantoprazo e Sodium 40 e Sodium 40 t} le Sodium MG MG 40 MG Albuterol Albuterol No 3{ml_as TID Albuterol Sulfate Sulfate _needed Sulfate (2.5 (2.5 } (2.5 MG/3ML) MG/3ML) MG/3ML) 0.083% 0.083% 0.083% Benzonatate Benzonatate No 1{capsu TID Benzonatat 100 MG 100 MG le_as_n e 100 MG eeded} metFORMIN metFORMIN No 1{table BID metFORMIN HCl ER 750 HCl ER 750 t} HCl ER 750 MG MG MG Nebulizer Nebulizer No Nebulizer Air Air Air Tube/Plugs Tube/Plugs Tube/Plugs - - - Aspir-Low Aspir-Low No 1{table QD Aspir-Low 81 MG 81 MG t} 81 MG Trulicity Trulicity No Trulicity 1.5 1.5 1.5 MG/0.5ML MG/0.5ML MG/0.5ML Tounancyo Toujeo No Tounancyo SoloStar SoloStar SoloStar 300 UNIT/ML 300 UNIT/ML 300 UNIT/ML amLODIPine amLODIPine No amLODIPine Besylate 5 Besylate 5 Besylate 5 MG MG MG Ursodiol Ursodiol No Ursodiol 250 MG 250 MG 250 MG Accu-Chek Accu-Chek No Accu-Chek Softclix Softclix Softclix Lancets - Lancets - Lancets - Varenicline Varenicline No Vareniclin Tartrate 1 Tartrate 1 e Tartrate MG MG 1 MG Gabapentin Gabapentin No Gabapentin 300 MG 300 MG 300 MG Losartan Losartan No 1{table QD Losartan Potassium Potassium t} Potassium 100 MG 100 MG 100 MG [place] Tounancyo No huan SoloStar SoloStar SoloStar 300 UNIT/ML 300 UNIT/ML 300 UNIT/ML Breztri Breztri No 2{puffs BID Breztri Aerosphere Aerosphere } Aerosphere 160-9-4.8 160-9-4.8 160-9-4.8 MCG/ACT MCG/ACT MCG/ACT Cetirizine Cetirizine No 1{table QD Cetirizine HCl 10 MG HCl 10 MG t} HCl 10 MG Pantoprazol Pantoprazol No Pantoprazo e Sodium 40 e Sodium 40 le Sodium MG MG 40 MG Losartan Losartan No 1{table QD Losartan Potassium Potassium t} Potassium 100 MG 100 MG 100 MG Nebulizer Nebulizer No Nebulizer Air Air Air Tube/Plugs Tube/Plugs Tube/Plugs - - - Aspir-Low Aspir-Low No 1{table QD Aspir-Low 81 MG 81 MG t} 81 MG Losartan Losartan No Losartan Potassium Potassium Potassium 100 MG 100 MG 100 MG Benzonatate Benzonatate No 1{capsu TID Benzonatat 100 MG 100 MG le_as_n e 100 MG eeded} TobraDex ST TobraDex ST No 1{drop_ QID TobraDex 0.3-0.05 % 0.3-0.05 % into_af ST fected_ 0.3-0.05 % eye} BD Pen BD Pen No QD BD Pen Needle Janet Needle Janet Needle 2nd Gen 32G 2nd Gen 32G Janet 2nd X 4 MM X 4 MM Gen 32G X 4 MM Ursodiol Ursodiol No Ursodiol 250 MG 250 MG 250 MG Trintellix Trintellix No Trintellix 20 MG 20 MG 20 MG Fluticasone Fluticasone No Fluticason Propionate Propionate e 50 MCG/ACT 50 MCG/ACT Propionate 50 MCG/ACT Multivitami Multivitami No Multivitam n Adult n Adult in Adult busPIRone busPIRone No busPIRone HCl 15 MG HCl 15 MG HCl 15 MG Varenicline Varenicline No Vareniclin Tartrate 1 Tartrate 1 e Tartrate MG MG 1 MG amLODIPine amLODIPine No amLODIPine Besylate 5 Besylate 5 Besylate 5 MG MG MG Gabapentin Gabapentin No Gabapentin 300 MG 300 MG 300 MG Albuterol Albuterol No 3{ml_as TID Albuterol Sulfate Sulfate _needed Sulfate (2.5 (2.5 } (2.5 MG/3ML) MG/3ML) MG/3ML) 0.083% 0.083% 0.083% metFORMIN metFORMIN No 1{table BID metFORMIN HCl ER 750 HCl ER 750 t} HCl ER 750 MG MG MG Pravastatin Pravastatin No Pravastati Sodium 20 Sodium 20 n Sodium MG MG 20 MG Accu-Chek Accu-Chek No Accu-Chek Softclix Softclix Softclix Lancets - Lancets - Lancets - Albuterol Albuterol No 3{ml_as TID Albuterol Sulfate Sulfate _needed Sulfate (2.5 (2.5 } (2.5 MG/3ML) MG/3ML) MG/3ML) 0.083% 0.083% 0.083% Levothyroxi Levothyroxi No Levothyrox ne Sodium ne Sodium ine Sodium 75 MCG 75 MCG 75 MCG Varenicline Varenicline No Vareniclin Tartrate 1 Tartrate 1 e Tartrate MG MG 1 MG Trulicity Trulicity No Trulicity 1.5 1.5 1.5 MG/0.5ML MG/0.5ML MG/0.5ML Toujeo Toujeo No Toujeo SoloStar SoloStar SoloStar 300 UNIT/ML 300 UNIT/ML 300 UNIT/ML Breztri Breztri No 2{puffs BID Breztri Aerosphere Aerosphere } Aerosphere 160-9-4.8 160-9-4.8 160-9-4.8 MCG/ACT MCG/ACT MCG/ACT Cetirizine Cetirizine No 1{table QD Cetirizine HCl 10 MG HCl 10 MG t} HCl 10 MG Pantoprazol Pantoprazol No Pantoprazo e Sodium 40 e Sodium 40 le Sodium MG MG 40 MG Losartan Losartan No 1{table QD Losartan Potassium Potassium t} Potassium 100 MG 100 MG 100 MG Nebulizer Nebulizer No Nebulizer Air Air Air Tube/Plugs Tube/Plugs Tube/Plugs - - - Aspir-Low Aspir-Low No 1{table QD Aspir-Low 81 MG 81 MG t} 81 MG Losartan Losartan No Losartan Potassium Potassium Potassium 100 MG 100 MG 100 MG Accu-Chek Accu-Chek No Accu-Chek Softclix Softclix Softclix Lancets - Lancets - Lancets - Benzonatate Benzonatate No 1{capsu TID Benzonatat 100 MG 100 MG le_as_n e 100 MG eeded} TobraDex ST TobraDex ST No 1{drop_ QID TobraDex 0.3-0.05 % 0.3-0.05 % into_af ST fected_ 0.3-0.05 % eye} BD Pen BD Pen No QD BD Pen Needle Janet Needle Janet Needle 2nd Gen 32G 2nd Gen 32G Janet 2nd X 4 MM X 4 MM Gen 32G X 4 MM Ursodiol Ursodiol No Ursodiol 250 MG 250 MG 250 MG Trintellix Trintellix No Trintellix 20 MG 20 MG 20 MG Fluticasone Fluticasone No Fluticason Propionate Propionate e 50 MCG/ACT 50 MCG/ACT Propionate 50 MCG/ACT Multivitami Multivitami No Multivitam n Adult n Adult in Adult busPIRone busPIRone No busPIRone HCl 15 MG HCl 15 MG HCl 15 MG Varenicline Varenicline No Vareniclin Tartrate 1 Tartrate 1 e Tartrate MG MG 1 MG amLODIPine amLODIPine No amLODIPine Besylate 5 Besylate 5 Besylate 5 MG MG MG Gabapentin Gabapentin No Gabapentin 300 MG 300 MG 300 MG Gabapentin Gabapentin No Gabapentin 300 MG 300 MG 300 MG Albuterol Albuterol No 3{ml_as TID Albuterol Sulfate Sulfate _needed Sulfate (2.5 (2.5 } (2.5 MG/3ML) MG/3ML) MG/3ML) 0.083% 0.083% 0.083% metFORMIN metFORMIN No 1{table BID metFORMIN HCl ER 750 HCl ER 750 t} HCl ER 750 MG MG MG Pravastatin Pravastatin No Pravastati Sodium 20 Sodium 20 n Sodium MG MG 20 MG Accu-Chek Accu-Chek No Accu-Chek Softclix Softclix Softclix Lancets - Lancets - Lancets - Albuterol Albuterol No 3{ml_as TID Albuterol Sulfate Sulfate _needed Sulfate (2.5 (2.5 } (2.5 MG/3ML) MG/3ML) MG/3ML) 0.083% 0.083% 0.083% Levothyroxi Levothyroxi No Levothyrox ne Sodium ne Sodium ine Sodium 75 MCG 75 MCG 75 MCG Varenicline Varenicline No Vareniclin Tartrate 1 Tartrate 1 e Tartrate MG MG 1 MG Trulicity Trulicity No Trulicity 1.5 1.5 1.5 MG/0.5ML MG/0.5ML MG/0.5ML Benzonatate Benzonatate No 1{capsu TID Benzonatat 100 MG 100 MG le_as_n e 100 MG eeded} Toujeo Toujeo No Toujeo SoloStar SoloStar SoloStar 300 UNIT/ML 300 UNIT/ML 300 UNIT/ML Breztri Breztri No 2{puffs BID Breztri Aerosphere Aerosphere } Aerosphere 160-9-4.8 160-9-4.8 160-9-4.8 MCG/ACT MCG/ACT MCG/ACT Cetirizine Cetirizine No 1{table QD Cetirizine HCl 10 MG HCl 10 MG t} HCl 10 MG Pantoprazol Pantoprazol No Pantoprazo e Sodium 40 e Sodium 40 le Sodium MG MG 40 MG Losartan Losartan No 1{table QD Losartan Potassium Potassium t} Potassium 100 MG 100 MG 100 MG Losartan Losartan No 1{table QD Losartan Potassium Potassium t} Potassium 100 MG 100 MG 100 MG Nebulizer Nebulizer No Nebulizer Air Air Air Tube/Plugs Tube/Plugs Tube/Plugs - - - Aspir-Low Aspir-Low No 1{table QD Aspir-Low 81 MG 81 MG t} 81 MG Losartan Losartan No Losartan Potassium Potassium Potassium 100 MG 100 MG 100 MG Benzonatate Benzonatate No 1{capsu TID Benzonatat 100 MG 100 MG le_as_n e 100 MG eeded} TobraDex ST TobraDex ST No 1{drop_ QID TobraDex 0.3-0.05 % 0.3-0.05 % into_af ST fected_ 0.3-0.05 % eye} BD Pen BD Pen No QD BD Pen Needle Janet Needle Janet Needle 2nd Gen 32G 2nd Gen 32G Janet 2nd X 4 MM X 4 MM Gen 32G X 4 MM Ursodiol Ursodiol No Ursodiol 250 MG 250 MG 250 MG Trintellix Trintellix No Trintellix 20 MG 20 MG 20 MG Fluticasone Fluticasone No Fluticason Propionate Propionate e 50 MCG/ACT 50 MCG/ACT Propionate 50 MCG/ACT Multivitami Multivitami No Multivitam n Adult n Adult in Adult Multivitami Multivitami No Multivitam n Adult n Adult in Adult busPIRone busPIRone No busPIRone HCl 15 MG HCl 15 MG HCl 15 MG Varenicline Varenicline No Vareniclin Tartrate 1 Tartrate 1 e Tartrate MG MG 1 MG amLODIPine amLODIPine No amLODIPine Besylate 5 Besylate 5 Besylate 5 MG MG MG Gabapentin Gabapentin No Gabapentin 300 MG 300 MG 300 MG Albuterol Albuterol No 3{ml_as TID Albuterol Sulfate Sulfate _needed Sulfate (2.5 (2.5 } (2.5 MG/3ML) MG/3ML) MG/3ML) 0.083% 0.083% 0.083% metFORMIN metFORMIN No 1{table BID metFORMIN HCl ER 750 HCl ER 750 t} HCl ER 750 MG MG MG Pravastatin Pravastatin No Pravastati Sodium 20 Sodium 20 n Sodium MG MG 20 MG Accu-Chek Accu-Chek No Accu-Chek Softclix Softclix Softclix Lancets - Lancets - Lancets - Albuterol Albuterol No 3{ml_as TID Albuterol Sulfate Sulfate _needed Sulfate (2.5 (2.5 } (2.5 MG/3ML) MG/3ML) MG/3ML) 0.083% 0.083% 0.083% Levothyroxi Levothyroxi No Levothyrox ne Sodium ne Sodium ine Sodium 75 MCG 75 MCG 75 MCG Pantoprazol Pantoprazol No 1{table QD Pantoprazo e Sodium 40 e Sodium 40 t} le Sodium MG MG 40 MG Varenicline Varenicline No Vareniclin Tartrate 1 Tartrate 1 e Tartrate MG MG 1 MG Trulicity Trulicity No Trulicity 1.5 1.5 1.5 MG/0.5ML MG/0.5ML MG/0.5ML Toujeo Toujeo No Toujeo SoloStar SoloStar SoloStar 300 UNIT/ML 300 UNIT/ML 300 UNIT/ML Janumet Janumet No Janumet 50-1000 MG 50-1000 MG 50-1000 MG Breztri Breztri No 2{puffs BID Breztri Aerosphere Aerosphere } Aerosphere 160-9-4.8 160-9-4.8 160-9-4.8 MCG/ACT MCG/ACT MCG/ACT Cetirizine Cetirizine No 1{table QD Cetirizine HCl 10 MG HCl 10 MG t} HCl 10 MG Pantoprazol Pantoprazol No Pantoprazo e Sodium 40 e Sodium 40 le Sodium MG MG 40 MG Losartan Losartan No 1{table QD Losartan Potassium Potassium t} Potassium 100 MG 100 MG 100 MG Nebulizer Nebulizer No Nebulizer Air Air Air Tube/Plugs Tube/Plugs Tube/Plugs - - - Aspir-Low Aspir-Low No 1{table QD Aspir-Low 81 MG 81 MG t} 81 MG Losartan Losartan No Losartan Potassium Potassium Potassium 100 MG 100 MG 100 MG Benzonatate Benzonatate No 1{capsu TID Benzonatat 100 MG 100 MG le_as_n e 100 MG eeded} TobraDex ST TobraDex ST No 1{drop_ QID TobraDex 0.3-0.05 % 0.3-0.05 % into_af ST fected_ 0.3-0.05 % eye} BD Pen BD Pen No QD BD Pen Needle Janet Needle Janet Needle 2nd Gen 32G 2nd Gen 32G Janet 2nd X 4 MM X 4 MM Gen 32G X 4 MM Ursodiol Ursodiol No Ursodiol 250 MG 250 MG 250 MG Trintellix Trintellix No Trintellix 20 MG 20 MG 20 MG Fluticasone Fluticasone No Fluticason Propionate Propionate e 50 MCG/ACT 50 MCG/ACT Propionate 50 MCG/ACT Multivitami Multivitami No Multivitam n Adult n Adult in Adult busPIRone busPIRone No busPIRone HCl 15 MG HCl 15 MG HCl 15 MG Varenicline Varenicline No Vareniclin Tartrate 1 Tartrate 1 e Tartrate MG MG 1 MG amLODIPine amLODIPine No amLODIPine Besylate 5 Besylate 5 Besylate 5 MG MG MG Gabapentin Gabapentin No Gabapentin 300 MG 300 MG 300 MG Albuterol Albuterol No 3{ml_as TID Albuterol Sulfate Sulfate _needed Sulfate (2.5 (2.5 } (2.5 MG/3ML) MG/3ML) MG/3ML) 0.083% 0.083% 0.083% metFORMIN metFORMIN No 1{table BID metFORMIN HCl [...] Softclix Lancets - Lancets - Lancets - Albuterol Albuterol No 3{ml_as TID Albuterol Sulfate Sulfate _needed Sulfate (2.5 (2.5 } (2.5 MG/3ML) MG/3ML) MG/3ML) 0.083% 0.083% 0.083% Levothyroxi Levothyroxi No Levothyrox ne Sodium ne Sodium ine Sodium 75 MCG 75 MCG 75 MCG Varenicline Varenicline No Vareniclin Tartrate 1 Tartrate 1 e Tartrate MG MG 1 MG Trulicity Trulicity No Trulicity 1.5 1.5 1.5 MG/0.5ML MG/0.5ML MG/0.5ML Ursodiol Ursodiol No Ursodiol 250 MG 250 [...] (2.5 MG/3ML) MG/3ML) MG/3ML) 0.083% 0.083% 0.083% Varenicline Varenicline Vareniclin Tartrate 1 Tartrate 1 -03 e Tartrate MG MG 00:00 1 MG :00 Immunizations Ordered Filled Immunization Date Status Comments [facility] e Immunization Name Name Flucelvax - single Flucelvax - single 2022-02-14 [facility]pleted [facility] dose syringe 16:15:00 - [facility] Flucelvax - single Flucelvax - single 2022-02-14 [facility]pleted [facility] dose syringe dose syringe 16:15:00 - [facility] Flucelvax - single Flucelvax - single 2022-02-14 Completed [facility] dose syringe dose syringe 16:15:00 - [facility] Flucelvax - single Flucelvax - single 2022-02-14 Completed [facility] dose syringe dose syringe 16:15:00 - [facility] Flucelvax - single Flucelvax - single 2022-02-14 Completed [facility] dose syringe dose syringe 16:15:00 - [facility] Afluria Afluria 2021-01-01 [facility]pleted [facility] 14:46:00 - [facility] Afluria Afluria 2021-01-01 Completed [facility] 14:46:00 - [facility] Afluria Afluria 2021-01-01 [facility]pleted [facility] 14[facility]46:00 - [facility] Afluria Afluria 2021-01-01 Completed [facility] 14:46:00 - [facility] Afluria Afluria 2021-01-01 [facility]pleted [facility] 14[facility]46:00 - [facility] Afluria Afluria 2021-01-01 [facility]pleted [facility] 14:46:00 - [facility] Afluria Afluria 2021-01-01 Completed [facility] 14:46:00 - [facility] Afluria Afluria 2021-01-01 Completed [facility] 14[facility]46:00 - [facility] Afluria Afluria 2021-01-01 Completed [facility] 14[facility]46:00 - [facility] Afluria Afluria 2021-01-01 Completed [facility] 14[facility]46:00 - [facility] Afluria Afluria 2021-01-01 Completed [facility] 14:46:00 - [facility] Afluria Afluria 2021-01-01 Completed [facility] 14[facility]46:00 - [facility] Afluria Afluria 2021-01-01 Completed [facility] 14[facility]46:00 - [facility] Afluria Afluria 2021-01-01 Completed [facility] 14[facility]46:00 - [facility] Afluria Afluria 2021-01-01 [facility]pleted [facility] 14:46:00 - [facility] Afluria Afluria 2021-01-01 Completed [facility] 14:46:00 - [facility] Afluria Afluria 2021-01-01 Completed [facility] 14:46:00 - [facility] Afluria Afluria 2021-01-01 Completed [facility] 14:46:00 [facility] Afluria Afluria 2021-01-01 Completed [facility] 14:46:00 - [facility] Afluria Afluria 2021-01-01 Completed [facility] 14[facility]46:00 [facility] Afluria Afluria 2021-01-01 Completed [facility] 14:46:00 [facility] Afluria Afluria 2021-01-01 Completed [facility] 14:46:00 - [facility] Afluria Afluria 2021-01-01 Completed [facility] 14:46:00 [facility] Afluria Afluria 2021-01-01 Completed [facility] 14:46:00 [facility] Afluria Afluria 2021-01-01 Completed [facility] 14:46:00 [facility] Afluria Afluria 2021-01-01 Completed [facility] 14[facility]46:00 - [facility] Afluria Afluria 2021-01-01 Completed [facility] 14:46:00 - [facility] Afluria Afluria 2021-01-01 Completed [facility] 14:46:00 - [facility] Afluria Afluria 2021-01-01 Completed [facility] 14:46:00 - [facility] Afluria Afluria 2021-01-01 Completed [facility] 14:46:00 - [facility] Afluria Afluria 2021-01-01 Completed [facility] 14:46:00 - [facility] Afluria Afluria 2021-01-01 Completed [facility] 14:46:00 - [facility] Afluria Afluria 2021-01-01 Completed [facility] 14:46:00 - [facility] Fluzone Fluzone 2019-04-02 Completed [facility] 08:45:00 - [facility] Fluzone Fluzone 2019-04-02 Completed [facility] 08:45:00 - [facility] Fluzone Fluzone 2019-04-02 Completed [facility] 08:45:00 - [facility] Fluzone Fluzone 2019-04-02 Completed [facility] 08:45:00 - [facility] Fluzone Fluzone 2019-04-02 Completed [facility] 08:45:00 - [facility] Fluzone Fluzone 2019-04-02 Completed [facility] 08:45:00 - [facility] Fluzone Fluzone 2019-04-02 Completed [facility] 08:45:00 - [facility] Fluzone Fluzone 2019-04-02 Completed [facility] 08:45:00 - [facility] Fluzone Fluzone 2019-04-02 Completed [facility] 08:45:00 - [facility] Fluzone Fluzone 2019-04-02 Completed [facility] 08:45:00 - [facility] Fluzone Fluzone 2019-04-02 Completed [facility] 08:45:00 - [facility] Fluzone Fluzone 2019-04-02 Completed [facility] 08:45:00 - [facility] Fluzone Fluzone 2019-04-02 Completed [facility] 08:45:00 - [facility] Fluzone Fluzone 2019-04-02 Completed [facility] 08:45:00 - [facility] Fluzone Fluzone 2019-04-02 Completed [facility] 08:45:00 - [facility] Fluzone Fluzone 2019-04-02 Completed [facility] 08:45:00 - [facility] Fluzone Fluzone 2019-04-02 Completed [facility] 08:45:00 - [facility] Fluzone Fluzone 2019-04-02 Completed [facility] 08:45:00 - [facility] Fluzone Fluzone 2019-04-02 Completed [facility] 08:45:00 - [facility] Fluzone Fluzone 2019-04-02 Completed [facility] 08:45:00 - [facility] Fluzone Fluzone 2019-04-02 Completed [facility] 08:45:00 - [facility] Fluzone Fluzone 2019-04-02 Completed [facility] 08:45:00 - [facility] Fluzone Fluzone 2019-04-02 Completed [facility] 08:45:00 - [facility] Fluzone Fluzone 2019-04-02 Completed [facility] 08:45:00 - [facility] Fluzone Fluzone 2019-04-02 Completed [facility] 08:45:00 - [facility] Fluzone Fluzone 2019-04-02 Completed [facility] 08:45:00 - [facility] Fluzone Fluzone 2019-04-02 Completed [facility] 08:45:00 - [facility] Fluzone Fluzone 2019-04-02 Completed [facility] 08:45:00 - [facility] Fluzone Fluzone 2019-04-02 Completed [facility] 08:45:00 - [facility] Fluzone Fluzone 2019-04-02 Completed [facility] 08:45:00 - [facility] Fluzone Fluzone 2019-04-02 Completed [facility] 08:45:00 - [facility] Fluzone Fluzone 2019-04-02 Completed [facility] 08:45:00 - [facility] Fluzone Fluzone 2019-04-02 Completed [facility] 08:45:00 - [facility] Fluzone Fluzone 2019-04-02 Completed [facility] 08:45:00 [facility] Fluzone Fluzone 2019-04-02 Completed [facility] 08:45:00 - [facility] Fluzone Fluzone 2019-04-02 Completed [facility] 08:45:00 - [facility] Fluzone Fluzone 2019-04-02 Completed [facility] 08:45:00 - [facility] Fluzone Fluzone 2019-04-02 Completed [facility] 08:45:00 - [facility] Fluzone Fluzone 2019-04-02 Completed [facility] 00:00:00 [facility] Afluria Afluria Unknown Completed [facility] Fluzone Fluzone Unknown Completed [facility] Flucelvax - single Flucelvax - single Unknown Completed [facility] dose syringe dose syringe [facility] Afluria Afluria Unknown Completed [facility] Fluzone Fluzone Unknown Completed [facility] Flucelvax - single Flucelvax - single Unknown Completed [facility] dose syringe dose syringe [facility] Flucelvax - single Flucelvax - single Unknown Completed [facility] dose syringe dose syringe [facility] Fluzone Fluzone Unknown Completed [facility] Afluria Afluria Unknown Completed [facility] Afluria Afluria Unknown Completed [facility] Fluzone Fluzone Unknown Completed [facility] Flucelvax - single Flucelvax - single Unknown Completed [facility] dose syringe dose syringe [facility] Vital Signs Vital Name Observation Time Observation Value Comments Source Systolic blood 2022-11-12 16:26:00 120 mm[Hg] Concettaer letitia of [facility] Diastolic blood 2022-11-12 16:26:00 60 mm[Hg] Unive rsity of pressure [facility] Heart rate 2022-11-12 16:26:00 74 /min Universi ty of [facility] Body height 2022-11-12 16:26:00 162.6 cm Universi ty of [facility] Body weight 2022-11-12 16:26:00 109.09 kg Universi ty of [facility] BMI 2022-11-12 16:26:00 41.28 kg/m2 Universi ty of [facility] Oxygen saturation in 2022-11-12 16:26:00 98 /min [facility] Arterial blood by [facility] Pulse oximetry Branch Systolic blood 2022-05-14 18:45:00 135 mm[Hg] Univer sity of [facility] Diastolic blood 2022-05-14 18:45:00 74 mm[Hg] Unive rsity of [facility] Heart rate 2022-05-14 18:45:00 83 /min Universi ty of [facility] Respiratory rate 2022-05-14 18:45:00 18 /min Univ ersity of [facility] Body height 2022-05-14 18:45:00 162.6 cm Universi ty of [facility] Body weight 2022-05-14 18:45:00 106.278 kg Universi ty of [facility] BMI 2022-05-14 18:45:00 40.22 kg/m2 Universi ty of [facility] height 2022-04-11 11:00:00 64.50 [in_i] [facility] weight 2022-04-11 11:00:00 230 [lb_av] [facility] bmi 2022-04-11 11:00:00 38.87 kg/m2 [facility] height 2022-02-14 15:00:00 64.50 [in_i] [facility]irit [facility] weight 2022-02-14 15:00:00 228.4 [lb_av] Common [facility] temperature 2022-02-14 15:00:00 97.3 [degF] [facility]irit [facility] bmi 2022-02-14 15:00:00 38.60 kg/m2 [facility] oximetry 2022-02-14 15:00:00 98 % [facility] respiratory rate 2022-02-14 15:00:00 16 /min Comm on [facility] blood pressure 2022-02-14 15:00:00 135 mm[Hg] Common [facility] - systolic [facility] blood pressure 2022-02-14 15:00:00 70 mm[Hg] [facility] - diastolic [facility] height 2022-01-21 13:20:00 64.50 [in_i] [facility] weight 2022-01-21 13:20:00 230 [lb_av] [facility] bmi 2022-01-21 13:20:00 38.87 kg/m2 [facility] height 2021-11-15 15:40:00 64.50 [in_i] [facility] weight 2021-11-15 15:40:00 226.8 [lb_av] [facility] temperature 2021-11-15 15:40:00 97.2 [degF] [facility] bmi 2021-11-15 15:40:00 38.32 kg/m2 [facility] oximetry 2021-11-15 15:40:00 96 % [facility] respiratory rate 2021-11-15 15:40:00 16 /min Comm on [facility] blood pressure 2021-11-15 15:40:00 124 mm[Hg] Common [facility] systolic [facility] blood pressure 2021-11-15 15:40:00 68 mm[Hg] [facility] diastolic [facility] Systolic blood 2021-10-30 16:52:00 126 mm[Hg] Univer sity of pressure [facility] Diastolic blood 2021-10-30 16:52:00 79 mm[Hg] Unive rsity of [facility] Heart rate 2021-10-30 16:52:00 74 /min Universi ty of [facility] Body weight 2021-10-30 16:52:00 105.597 kg Universi ty [facility] BMI 2021-10-30 16:52:00 39.96 [facility] saturation in 2021-10-30 16:52:00 98 /min [facility] blood by [facility] Pulse oximetry Branch height 2021-10-18 15:40:00 64.50 [in_i] Common [facility] weight 2021-10-18 15:40:00 228.8 [lb_av] [facility] temperature 2021-10-18 15:40:00 97.4 [degF] [facility] bmi 2021-10-18 15:40:00 38.66 kg/m2 [facility] oximetry 2021-10-18 15:40:00 97 % [facility] respiratory rate 2021-10-18 15:40:00 16 /min Comm on [facility] blood pressure 2021-10-18 15:40:00 130 mm[Hg] Common [facility] systolic [facility] blood pressure 2021-10-18 15:40:00 68 mm[Hg] Common [facility] diastolic [facility] height 2021-09-13 15:40:00 64.50 [in_i] Common [facility] weight 2021-09-13 15:40:00 231.6 [lb_av] [facility] temperature 2021-09-13 15:40:00 97.2 [degF] [facility] bmi 2021-09-13 15:40:00 39.14 kg/m2 [facility] oximetry 2021-09-13 15:40:00 96 % [facility] respiratory rate 2021-09-13 15:40:00 16 /min Comm on [facility] blood pressure 2021-09-13 15:40:00 140 mm[Hg] [facility] - systolic [facility] blood pressure 2021-09-13 15:40:00 82 mm[Hg] [facility] - diastolic [facility] height 2021-08-14 13:00:00 64.50 [in_i] Common [facility] weight 2021-08-14 13:00:00 231 [lb_av] [facility] pirit [facility] temperature 2021-08-14 13:00:00 96.8 [degF] Common [facility] bmi 2021-08-14 13:00:00 39.03 kg/m2 [facility] oximetry 2021-08-14 13:00:00 98 % [facility] respiratory rate 2021-08-14 13:00:00 16 /min Comm [facility] - [facility] blood pressure 2021-08-14 13:00:00 155 mm[Hg] [facility] - systolic [facility] blood pressure 2021-08-14 13:00:00 70 mm[Hg] [facility] - diastolic [facility] height 2021-06-05 14:00:00 64.50 [in_i] [facility] weight 2021-06-05 14:00:00 233 [lb_av] [facility] temperature 2021-06-05 14:00:00 96.7 [degF] [facility]irit [facility] bmi 2021-06-05 14:00:00 39.37 kg/m2 [facility] blood pressure 2021-06-05 14:00:00 146 mm[Hg] [facility] - systolic [facility] blood pressure 2021-06-05 14:00:00 84 mm[Hg] [facility] - diastolic [facility] height 2021-05-11 13:20:00 64.50 [in_i] [facility] weight 2021-05-11 13:20:00 228.7 [lb_av] Common [facility] - [facility] temperature 2021-05-11 13:20:00 97.8 [degF] Common [facility] bmi 2021-05-11 13:20:00 38.65 kg/m2 [facility] oximetry 2021-05-11 13:20:00 98 % [facility] respiratory rate 2021-05-11 13:20:00 18 /min Comm on [facility] blood pressure 2021-05-11 13:20:00 139 mm[Hg] Common [facility] - systolic [facility] blood pressure 2021-05-11 13:20:00 67 mm[Hg] [facility] - diastolic [facility] height 2021-05-11 14:00:00 64.50 [in_i] [facility] weight 2021-05-11 14:00:00 228.7 [lb_av] [facility] temperature 2021-05-11 14:00:00 97.8 [degF] Common [facility] bmi 2021-05-11 14:00:00 38.65 kg/m2 [facility] blood pressure 2021-05-11 14:00:00 139 mm[Hg] [facility] - systolic [facility] blood pressure 2021-05-11 14:00:00 67 mm[Hg] [facility] - diastolic [facility] height 2021-04-02 15:20:00 64.50 [in_i] [facility] weight 2021-04-02 15:20:00 228 [lb_av] Common [facility] temperature 2021-04-02 15:20:00 96.9 [degF] [facility] bmi 2021-04-02 15:20:00 38.53 kg/m2 Common [facility] oximetry 2021-04-02 15:20:00 97 % [facility] respiratory rate 2021-04-02 15:20:00 19 /min Comm on [facility] blood pressure 2021-04-02 15:20:00 138 mm[Hg] Common [facility] - systolic [facility] blood pressure 2021-04-02 15:20:00 65 mm[Hg] Common [facility] - diastolic [facility] height 2020-12-22 10:00:00 64.50 [in_i] Common [facility] weight 2020-12-22 10:00:00 220 [lb_av] [facility] bmi 2020-12-22 10:00:00 37.18 kg/m2 [facility] height 2020-12-13 12:20:00 64.50 [in_i] [facility] weight 2020-12-13 12:20:00 220 [lb_av] [facility] bmi 2020-12-13 12:20:00 37.18 kg/m2 [facility] Procedures Procedure Date / Time Performed Performing Clinician [facility] e DIABETES TESTING 2022-11-12 05:01:00 Doctor Unassigned, No Unive [facility] REPORTS Name Medical Branch REFERRAL- 2022-05-14 06:01:00 Doctor Unassigned, No Univer [facility] REQUEST/RESPONSE Name [facility] EXTERNAL PROVIDER 2021-11-26 05:01:00 [facility]assigned, No [facility] Encounters Start End Encounter Admission Attending Care Care Encounter Source Date/Time Date/Time Type Type Clinicians Facility Department ID 2022-07-09 Outpatient Gonzalez, STWOJCIECH[facility] [id number] Common 13:18:00 Chayo [id number] [facility] 2022-05-28 Outpatient Gonzalez, [facility] [id number] Common 14:00:00 Chayo 12427 [facility] 2022-04-29 Outpatient Gonzalez, STWOJCIECHLC [facility] [id number] Common 11:47:01 Chayo 80586 [facility] 2022-04-11 Outpatient Gonzalez, STLMLC STLMLC [id number] Common 11:02:01 [facility] [id number] [facility] 2022-04-10 Outpatient Gonzalez, STLMLC STLMLC [id number] Common 09:38:01 [facility] 01825 [facility] 2022-04-04 Outpatient Gonzalez, STLMLC STLMLC [id number] Common 15:02:00 [facility] 2022-02-13 Outpatient Ruelas, Na STLMLC STLMLC [id number] 2 Common 07:36:00 [facility] 2022-01-17 Outpatient Ruelas, Na STLMLC STLMLC [id number] 2 Common 11:35:01 [facility] 2021-12-14 Outpatient Ruelas, Na STLMLC STLMLC [id number] 2 Common 09:46:00 [facility] 2021-10-16 Outpatient Ruelas, Na STLMLC STLMLC [id number] 2 Common 15:14:01 [facility] 2021-09-12 Outpatient Ruelas, Na STLMLC STLMLC [id number] 2 Common 15:57:01 [facility] 2021-09-11 Outpatient Ruelas, Na STLMLC STLMLC [id number] 2 Common 10:21:01 [facility] 2021-08-13 Outpatient Ruelas, Na STLMLC STLMLC [id number] 2 Common 13:31:00 [facility] 2021-05-18 Outpatient Ruelas, Na STLMLC STLMLC [id number] 2 Common 11:01:01 [facility] 2021-05-11 Outpatient Ruelas, Na STLMLC STLMLC [id number] 2 Common 13:17:01 [facility] 2021-05-10 Outpatient Ruelas, Na STLMLC STLMLC [id number] 2 Common 09:35:00 [facility] 2021-05-09 Outpatient Ruelas, Na STLMLC STLMLC [id number] 2 Common 11:36:01 [facility] 2021-04-10 Outpatient Ruelas, Na STLMLC STLMLC [id number] 2 Common 14:01:01 [facility] 2021-04-04 Outpatient Ruelas, Na STLMLC STLMLC [id number] 2 Common 14:35:57 [facility] 2021-04-04 Outpatient Ruelas, Na STLMLC STLMLC [id number] 2 Common 14:32:10 [facility] 2021-04-04 Outpatient Ruelas, Na STLMLC STLMLC [id number] 2 Common 14:26:31 [facility] 2021-04-04 Outpatient Ruelas, Na STLMLC STLMLC [id number] 2 Common 14:22:06 93025 [facility] 2021-04-04 Outpatient Ruelas, Na STLMLC STLMLC [id number] 2 Common 13:47:57 [id number] [facility] 2021-04-04 Outpatient Ruelas, Na STLMLC STLMLC [id number] 2 Common 13:31:15 [id number] [facility] 2021-04-04 Outpatient Ruelas, Na STLMLC STLMLC [id number] 2 Common 13:17:49 [id number] [facility] 2021-04-04 Outpatient Ruelas, Na STLMLC STLMLC [id number] 2 Common 13:15:11 [id number] [facility] 2021-04-04 Outpatient Ruelas, Na STLMLC STLMLC [id number] 2 Common 12:56:33 [id number] [facility] 2021-04-04 Outpatient Ruelas, Na STLMLC STLMLC [id number] 2 Common 12:51:32 [id number] [facility] 2021-04-04 Outpatient Ruelas, Na STLMLC STLMLC [id number] 2 Common 12:45:45 [id number] [facility] 2021-04-04 Outpatient Ruelas, Na STLMLC STLMLC [id number] 2 Common 12:44:50 [id number] [facility] 2021-04-04 Outpatient Ruelas, Na STLMLC STLMLC [id number] 2 Common 12:26:48 [id number] [facility] 2021-04-04 Outpatient Ruelas, Na STLMLC STLMLC [id number] 2 Common 12:25:49 [id number] [facility] 2021-04-04 Outpatient Ruelas, Na STLMLC STLMLC [id number] 2 Common 12:12:47 [id number] [facility] 2021-04-04 Outpatient Ruelas, Na STLMLC STLMLC [id number] 2 Common 12:03:01 [id number] [facility] 2021-04-04 Outpatient Ruelas, Na STLMLC STLMLC [id number] 2 Common 12:02:32 [id number] [facility] 2021-04-04 Outpatient Ruelas, Na STLMLC STLMLC [id number] 2 Common 11:46:04 [id number] [facility] 2021-04-04 Outpatient Ruelas, Na STLMLC STLMLC [id number] 2 Common 11:45:14 [id number] [facility] 2021-04-04 Outpatient Ruelas, Na STLMLC STLMLC [id number] 2 Common 11:44:02 [id number] [facility] 2021-04-04 Outpatient Ruelas, Na STLMLC STLMLC [id number] 2 Common 11:26:10 [id number] [facility] 2021-04-04 Outpatient Ruelas, Na STLMLC STLMLC [id number] 2 Common 11:25:37 [id number] [facility] 2021-04-04 Outpatient Ruelas, Na STLMLC STLMLC [id number] 2 Common 11:02:45 22999 [facility] 2020-04-11 Inpatient EL Elders, HCACR DAYS [id number] [facility] 11:00:00 Luis Diaz [facility] 2020-03-07 Inpatient EL Elders, HCACR DAYS [id number] [facility] 14:40:00 Luis Grijalva [place] [facility] 2023-03-18 2023-03-18 Outpatient R JOVI [facility] [id number] Univers 13:30:00 13:30:00 [facility] 2022-12-23 2022-12-23 [facility] [id number] Univers 00:00:00 00:00:00 [facility] [id number] it [facility] [id number] Tramaine as HIGINIO?BLEA [id number] [address] OFFICE [facility] 2022-11-15 2022-11-15 Outpatient GC_GCBZW_Ka PRIV PRIV [id number] [facility] 00:00:00 00:00:00 diyala_S [id number] Medic al 2022-11-12 2022-11-12 Outpatient R JOVI [facility] [id number] Univers 11:30:00 15:15:39 [facility] 2022-11-12 2022-11-12 [facility] [id number] Univers 11:30:00 15:15:39 Visit [facility] [id number] it y of [place] [id number] Tramaine as HIGINIO?BLEA [id number] [address] OFFICE [facility] 2022-11-12 2022-11-12 Outpatient _GCBZW_Ka PRIV PRIV [id number] [facility] 00:00:00 00:00:00 diyala_S [id number] Medic al 2022-11-12 2022-11-12 Orders Doctor BELTRAN [id number] Univers 00:00:00 00:00:00 Only Unassigned, WILLIAM [id number] ity of [place] [facility] [id number] Tramaine as [id number] [address] 2022-11-08 2022-11-08 Outpatient GC_GCBZW_Ka PRIV PRIV [id number] [facility] 00:00:00 00:00:00 toñokourtney_S [id number] [facility] 2022-07-29 2022-07-29 Patient Doctor RUBY [id number] Univers 00:00:00 00:00:00 Secure Msg Unassigned, WILLIAM [id number] ity of [facility] [id number] Tramaine as [id number] [address] 2022-05-28 2022-05-28 (TEL) STLMLC STLMLC [id number] Co mmon 00:00:00 00:00:00 [facility] 2022-05-16 2022-05-16 Esthetician Facialist Lab, Navin - Kal [facility] 1.2.840.1 [id number] Univers 15:30:00 15:45:00 Visit [facility] [id number] ity of [place] [id number] Tramaine as HIGINIO?BLEA [id number] [address] MEDICAL OFFICE [facility] 2022-05-16 2022-05-[address] [facility] [id number] Univers 15:30:00 15:30:00 [facility] 2022-05-15 2022-05-15 (TEL) STLC STLC [id number] Co mmon 00:00:00 00:00:00 [facility] 2022-05-14 2022-05-14 Esthetician Facialist Lab, Navin - Db [facility] 1.2.840.1 [id number] Univers 13:45:00 14:00:00 Visit [facility] [id number] ity of [place] [id number] Tramaine as HIGINIO?BLEA [id number] [address] OFFICE [facility] 2022-05-14 2022-05-[address] [facility] [id number] Univers 13:00:00 13:39:09 [facility] 2022-05-14 2022-05-14 Office [facility] [id number] Univers 13:00:00 13:39:09 Visit [facility] [id number] it y of [place] [id number] Tramaine as HIGINIO?BLEA [id number] [address] OFFICE [facility] 2022-05-14 2022-05-14 Telephone Jovi NEGENEVA [id number] Univers 00:00:00 00:00:00 [facility] [id number] it y of [place] [id number] Tramaine as HIGINIO?BLEA [id number] [address] OFFICE [facility] 2022-05-14 2022-05-14 Orders Doctor RUBY [id number] Univers 00:00:00 00:00:00 Only Unassigned, WILLIAM [id number] ity of [place] [facility] [id number] Tramaine as [id number] [address] 2022-04-25 2022-04-25 (TEL) STLMLC STLMLC [id number] Co mmon 00:00:00 00:00:00 [facility] 2022-04-22 2022-04-22 (TEL) STLMLC STLMLC [id number] Co mmon 00:00:00 00:00:00 [facility] 2022-04-11 2022-04-11 OFFICE STLMLC STLMLC [id number] Co mmon 00:00:00 00:00:00 VISIT [facility] LEVEL 4 [facility] 2022-04-09 2022-04-09 Outpatient R JOVI [facility] [id number] Univers 11:30:00 11:30:00 [place] [facility] 2022-04-08 2022-04-08 Telephone Jovi [facility] [id number] Univers 00:00:00 00:00:00 [facility] [id number] it y of [place] [id number] Tramaine as HIGINIO?BLEA [phone] [address] OFFICE [facility] 2022-03-27 2022-03-27 Refill Jovi [facility] 1.2.840.114 [id number] Univers 00:00:00 00:00:00 [facility] [id number] it y of [place] [id number] Tramaine as HIGINIO?BLEA [phone] [address] OFFICE [facility] 2022-03-20 2022-03-20 Refill [place], [facility] 1.2.840.114 [id number] Univers 00:00:00 00:00:00 [facility] [id number] it y of [place] [id number] Tramaine as HIGINIO?BLEA [phone] [address] OFFICE [facility] 2022-03-17 2022-03-17 Refill [place], NEMB 1.2.840.114 [id number] Univers 00:00:00 00:00:00 [facility] [id number] it y of [place] 4.2.7.2.686 Tramaine as HIGINIO?BLEA [phone] [address] OFFICE [facility] 2022-03-08 2022-03-08 Patient [place], NEMB 1.2.840.114 [id number] Univers 00:00:00 00:00:[address] [facility] [id number] [place].2.7.2.686 [place] [phone] [facility] AND [address] [facility] 2022-02-20 2022-02-20 (TEL) STLC STLC [id number] Co mmon 00:00:00 00:00:00 [facility] 2022-02-14 2022-02-14 OFFICE STLMLC STLMLC [id number] Co mmon 00:00:00 00:00:00 VISIT EST Spir it PT LEVEL 3 [facility] 2022-01-27 2022-01-27 (WEB) STLMLC STLMLC [id number] Co mmon 00:00:00 00:00:00 [facility] 2022-01-25 2022-01-25 Patient [place], NEMB 1.2.840.114 [id number] Univers 00:00:00 00:00:00 Secure Msg Teresa MULTISPEC [id number] ity of [place] 4.2.7.2.686 [facility] [phone] [facility] AND TAMA [address] [facility] 2022-01-24 2022-01-24 (WEB) STLMLC STLMLC [id number] Co mmon 00:00:00 00:00:00 [facility] 2022-01-21 2022-01-21 OL DIG E/M STLMLC STLMLC [id number] Common 00:00:00 00:00:00 [facility] 11-20 Spir it MIN [facility] 2022-01-09 2022-01-09 (TEL) STLMLC STLMLC [id number] Co mmon 00:00:00 00:00:00 [facility] 2021-12-20 2021-12-20 (WEB) STLMLC STLMLC [id number] Co mmon 00:00:00 00:00:00 [facility] 2021-11-26 2021-11-26 Orders Doctor RUBY 1.2.840.114 [id number] Univers 00:00:00 00:00:00 Only Unassigned, WILLIAM 350.1.13.10 [facility] 4.2.7.2.686 Tramaine as [phone] [facility] [address] 2021-11-15 2021-11-15 OFFICE STLMLC STLC [id number] Co mmon 00:00:00 00:00:00 VISIT EST Spir it PT LEVEL 3 [facility] 2021-10-30 2021-10-30 Outpatient R JOVI NEGENEVA [facility] [id number] Univers 12:00:00 12:53:55 TERESA ity of [facility] 2021-10-30 2021-10-30 Office Jovi NEGENEVA 1.2.840.114 [id number] Univers 12:00:00 12:53:55 Visit [facility] 350.1.13.10 it y of [place] 4.2.7.2.686 Tramaine as HIGINIO?BLEA [phone] Ga keaton SOLIS [address] MEDICAL OFFICE BUILDING 2021-10-23 2021-10-23 (TEL) STLMLC STLMLC [id number] Co mmon 00:00:00 00:00:00 [facility] 2021-10-20 2021-10-20 (TEL) STLMLC STLMLC [id number] Co mmon 00:00:00 00:00:00 [facility] 2021-10-18 2021-10-18 OFFICE STLMLC STLMLC [id number] Co mmon 00:00:00 00:00:00 VISIT EST Spir it PT LEVEL 3 [facility] 2021-09-13 2021-09-13 OFFICE STLMLC STLMLC [id number] Co mmon 00:00:00 00:00:00 VISIT EST Spir it PT LEVEL 3 [facility] 2021-08-31 2021-08-31 (TEL) STLMLC STLMLC [id number] Co mmon 00:00:00 00:00:00 [facility] 2021-08-14 2021-08-14 OFFICE STLMLC STLMLC [id number] Co mmon 00:00:00 00:00:00 VISIT EST Spir it PT LEVEL 3 [facility] 2021-08-10 2021-08-10 Patient [place], [facility] 1.2.840.114 [id number] Univers 00:00:00 00:00:00 Secure Msg [place] MULTISPEC 350.1.13.10 ity of [place] 4.2.7.2.686 [facility] [phone] Melba Sanon [address] [facility] 2021-08-08 2021-08-08 (TEL) STLMLC STLMLC [id number] Co mmon 00:00:00 00:00:00 [facility] 2021-08-03 2021-08-03 (TEL) STLMLC STLMLC [id number] Co mmon 00:00:00 00:00:00 [facility] 2021-06-05 2021-06-05 OFFICE STLMLC STLMLC [id number] Co mmon 00:00:00 00:00:00 VISIT NEW Spir it PT LEVEL 4 - [facility] 2021-05-30 2021-05-30 (TEL) STLMLC STLMLC [id number] Co mmon 00:00:00 00:00:00 Spirit - [facility] 2021-05-21 2021-05-21 [facility] [id number] Univers 14:28:47 23:59:00 [facility]-05-21 2021-05-21 [facility] 1.2.840.114 [id number] Univers 14:00:00 23:59:00 Encounter [facility] 350.1.13.10 ity [facility] 4.2.7.2.686 [facility] [phone] [place] [address] [address] 2021-05-14 2021-05-14 [facility] [id number] Univers 00:00:00 00:00:00 [facility] 2021-05-11 2021-05-11 SUB ANNUAL STLMLC STLMLC [id number] Common 00:00:00 00:00:00 MCR Spirit WELLNESS - [facility] VISIT [facility] 2021-05-11 2021-05-11 OFFICE STLMLC STLMLC [id number] Co mmon 00:00:00 00:00:00 VISIT EST Spir it PT LEVEL 3 - [facility] 2021-05-10 2021-05-10 (TEL) STLMLC STLMLC [id number] Co mmon 00:00:00 00:00:00 Spirit - [facility] 2021-05-07 2021-05-07 [facility] [id number] Univers 14:30:00 14:30:00 [facility] 2021-05-01 2021-05-01 [facility] [id number] Univers 11:30:00 12:27:00 [facility] 2021-04-24 2021-04-24 [facility] 1.2.840.114 [id number] Univers 10:30:00 11:00:00 Visit [facility] 350.1.13.10 it y [facility] 4.2.7.2.686 Tramaine as HIGINIO?BLEA [phone] [place] keaton [address] MEDICAL OFFICE BUILDING 2021-04-24 2021-04-24 Outpatient R JOVI [facility] [id number] Univers 10:30:00 10:30:00 [place] ity [facility] 2021-04-09 2021-04-09 (TEL) STLMLC STLMLC [id number] Co mmon 00:00:00 00:00:00 [facility] 2021-04-02 2021-04-02 OFFICE STLMLC STLMLC [id number] Co mmon 00:00:00 00:00:00 VISIT EST Spir it PT LEVEL 3 [facility] 2021-03-15 2021-03-15 (TEL) STLMLC STLMLC [id number] Co mmon 00:00:00 00:00:00 [facility] 2021-03-15 2021-03-15 (TEL) STLMLC STLMLC [id number] Co mmon 00:00:00 00:00:00 [facility] 2021-02-14 2021-02-14 (TEL) STLMLC STLMLC [id number] Co mmon 00:00:00 00:00:00 [facility] 2021-02-06 2021-02-06 (TEL) STLMLC STLMLC [id number] Co mmon 00:00:00 00:00:00 [facility] 2021-01-10 2021-01-10 OL DIG E/M STLMLC STLMLC [id number] Common 00:00:00 00:00:00 SVC 11-20 Spir it MIN [facility] 2021-01-01 2021-01-01 (INJ) STLMLC STLMLC [id number] Co mmon 00:00:00 00:00:00 Injection Spir [facility] 2021-01-01 2021-01-01 (TEL) STLMLC STLMLC [id number] Co mmon 00:00:00 00:00:00 [facility] 2020-12-27 2020-12-27 (TEL) STLMLC STLMLC [id number] Co mmon 00:00:00 00:00:00 [facility] 2020-12-22 2020-12-22 OFFICE STLMLC STLMLC [id number] Co mmon 00:00:00 00:00:00 VISIT EST [facility] it PT LEVEL 3 [facility] 2020-12-22 2020-12-22 (TEL) STLMLC STLMLC [id number] Co mmon 00:00:00 00:00:00 [facility] 2020-12-22 2020-12-22 (TEL) STLMLC STLMLC [id number] Co mmon 00:00:00 00:00:00 [facility] 2020-12-13 2020-12-13 OFFICE STLMLC STLMLC [id number] Co mmon 00:00:00 00:00:00 VISIT [facility] LEVEL 3 [facility] 2020-12-01 2020-12-01 (TEL) STLMLC STLMLC [id number] Co mmon 00:00:00 00:00:00 [facility] 2020-10-24 2020-10-24 Outpatient STLMLC STLMLC [id number] Common 00:00:00 00:00:00 [facility] 2020-08-02 2020-08-02 Outpatient STLMLC STLMLC [id number] Common 00:00:00 00:00:00 [facility] 2020-07-05 2020-07-05 Outpatient STLMLC STLMLC [id number] Common 00:00:00 00:00:00 [facility] 2020-06-20 2020-06-20 Outpatient STLMLC STLMLC [id number] Common 00:00:00 00:00:00 [facility] 2020-06-20 2020-06-20 Outpatient STLMLC STLMLC [id number] Common 00:00:00 00:00:00 [facility] 2020-06-15 2020-06-15 Outpatient STLMLC STLMLC [id number] Common 00:00:00 00:00:00 [facility] 2020-06-06 2020-06-06 Outpatient STLMLC STLMLC [id number] Common 00:00:00 00:00:00 [facility] 2020-06-05 2020-06-05 Outpatient STLMLC STLMLC [id number] Common 00:00:00 00:00:00 [facility] 2020-05-29 2020-05-29 Outpatient STLMLC STLMLC [id number] Common 00:00:00 00:00:00 [facility] 2020-05-09 2020-05-09 Outpatient STLMLC STLMLC [id number] Common 00:00:00 00:00:00 [facility] 2020-05-05 2020-05-05 Outpatient STLMLC STLMLC [id number] Common 00:00:00 00:00:00 [facility] 2020-04-19 2020-04-19 Outpatient STLMLC STLMLC [id number] Common 00:00:00 00:00:00 [facility] 2020-04-07 2020-04-07 Outpatient STLMLC STLMLC [id number] Common 00:00:00 00:00:00 [facility] 2020-03-28 2020-03-28 Outpatient STLMLC STLMLC [id number] Common 00:00:00 00:00:00 [facility] 2020-02-24 2020-02-24 Outpatient STLMLC STLMLC [id number] Common 00:00:00 00:00:00 [facility] 2020-02-22 2020-02-22 Outpatient STLMLC STLMLC [id number] Common 00:00:00 00:00:00 [facility] 2020-01-14 2020-01-14 Outpatient STLMLC STLMLC [id number] Common 00:00:00 00:00:00 [facility] 2019-11-23 2019-11-23 [place] [facility] [id number] Common 11:00:00 11:00:[address] [facility] 2019-11-16 2019-11-16 Outpatient [facility] [id number] Common 09:52:00 09:52:[address] [facility] 2019-08-30 2019-08-30 Outpatient [facility] [id number] Common 08:49:00 08:49:00 t [facility] [address] Spir [address] Road [facility] 2019-08-18 2019-08-18 Outpatient [facility] [id number] Common 09:40:00 09:40:[address] [facility] 2019-08-10 2019-08-10 Outpatient [facility] [id number] Common 14:31:00 14:31:[address] [facility] 2019-08-07 2019-08-07 Outpatient [facility] [id number] Common 07:31:00 07:31:[address] [facility] 2019-08-06 2019-08-06 Outpatient [facility] [id number] Common 09:20:00 09:20:[address] [facility] 2019-04-30 2019-04-30 Outpatient [facility] [id number] Common 16:02:00 16:02:[address] [facility] 2019-04-15 2019-04-15 Outpatient [facility] [id number] Common 10:26:00 10:26:[address] [facility] 2019-04-12 2019-04-12 Outpatient [facility] [id number] Common 09:27:00 09:27:[address] [facility] 2019-04-02 2019-04-02 Outpatient [facility] [id number] Common 08:40:00 08:40:[address] [facility] 2019-04-01 2019-04-01 Outpatient Ravinder Castro [id number] Common 11:20:00 11:20:00 t [facility] it Decision Curve [facility] Results Test Description Test Time Test Comments Results Result Comments Source Lipid Panel w/ Chol/HDL Ratio 2022-01-22 00:00:00 Test Item Value Reference Range Interpretation Comme nts Cholesterol, Total (test code 128 mg/dL See_Comment [Automated message] The system = 2093-3) which generated this result transmitted ref erence range: 100-199 mg/dL. The reference range was not u sed to interpret this result as normal/abnormal. Triglycerides (test code = 159 mg/dL See_Comment H [Automated message] The system 5001-8) which generated this result transmitted ref erence range: 0-149 mg/dL. Th e reference range was not used to interpret this result as warren l/abnormal. HDL Cholesterol (test code = 42 mg/dL See_Comment [Automated message] The system 5-9) which generated this result transmitted ref erence [...] this result as normal/abnormal. Microalbumin/Creat Ratio, Random [id number] 00:00:00 Test Item Value Reference Range Interpretation Comments Creatinine, 168.8 mg/dL Not Estab. mg/dL Urine (test code = 2161-8) Albumin, Urine 516.8 ug/mL Not Estab. ug/mL (test code = 43570-8) Alb/Creat Ratio 306 mg/g creat See_Comment H [Automate d message] (test code = The system whic h 43758-2) generated this result transmitted ref erence range: 0-29 mg/ g creat. The refe rence range was not u sed to interpret this result as normal/abnor mal. Comp. Metabolic Panel (14) (CMP)2022-01-22 00:00:00 Test Item Value Reference Range Interpretation Comments Glucose (test code = 134 mg/dL See_Comment H [Autom ated message] 5505-7) The system [employer] ([employer]) generated this result transmitted ref erence range: 70-99 mg /dL. The reference r harriet was not used to interpret this result as normal/abnor mal. BUN (test code = 8 mg/dL See_Comment [Automated message] 3094-0) The system [employer] ([employer]) generated this result transmitted ref erence range: 6-24 mg/ dL. The reference r harriet was not used to interpret this result as normal/abnor mal. Creatinine (test code 0.75 mg/dL See_Comment [Auto mated message] = 2160-0) The system [employer] ([employer]) generated this result transmitted ref erence range: 0.57-1.0 0 mg/dL. The refe rence range was not u sed to interpret this result as normal/abnor mal. BUN/Creatinine Ratio 11 9-23 (test code = 3097-3) Sodium (test code = 142 mmol/L See_Comment [Automa debra message] 3844-2) The system [employer] ([employer]) generated this result transmitted ref erence range: 134-144 mmol/L. The ref erence range was not u sed to interpret this result as normal/abnor mal. Potassium (test code = 4.2 mmol/L See_Comment [Aut omated message] 3389-3) The system [employer] ([employer]) generated this result transmitted ref erence range: 3.5-5.2 mmol/L. The ref erence range was not u sed to interpret this result as normal/abnor mal. Chloride (test code = 100 mmol/L See_Comment [Auto mated message] 0755-0) The system [employer] ([employer]) generated this result transmitted ref erence range: 96-106 m mol/L. The reference r harriet was not used to interpret this result as normal/abnor mal. Carbon Dioxide, Total 25 mmol/L See_Comment [Auto mated message] (test code = 2027-9) The sys tem which generated this result transmitted ref erence range: 20-29 mm ol/L. The reference r harriet was not used to interpret this result as normal/abnor mal. Calcium (test code = 9.9 mg/dL See_Comment [Autom ated message] 89191-1) The system [facility] generated this result transmitted ref erence range: 8.7-10.2 mg/dL. The refe rence range was not u sed to interpret this result as normal/abnor mal. Protein, Total (test 6.8 g/dL See_Comment [Autom ated message] code = 2885-2) The system [facility] generated this result transmitted ref erence range: 6.0-8.5 g/dL. The reference r harriet was not used to interpret this result as normal/abnor mal. Albumin (test code = 4.3 g/dL See_Comment [Autom ated message] 1751-7) The system [facility] generated this result transmitted ref erence range: 3.8-4.9 g/dL. The reference r harriet was not used to interpret this result as normal/abnor mal. Globulin, Total (test 2.5 g/dL See_Comment [Auto mated message] code = 15672-8) The system [facility] generated this result transmitted ref erence range: 1.5-4.5 g/dL. The reference r harriet was not used to interpret this result as normal/abnor mal. A/G Ratio (test code = 1.7 1.2-2.2 1759-0) Bilirubin, Total (test 0.5 mg/dL See_Comment [Aut omated message] code = 1975-2) The system [facility] generated this result transmitted ref erence range: 0.0-1.2 mg/dL. The reference r harriet was not used to interpret this result as normal/abnor mal. Alkaline Phosphatase 106 IU/L See_Comment [Autom ated message] (test code = 6768-6) The s tem which generated this result transmitted ref erence range: 44-121 I U/L. The reference r harriet was not used to interpret this result as normal/abnor mal. AST (SGOT) (test code 53 IU/L See_Comment H [Auto mated message] = 1920-8) The system [facility] generated this result transmitted ref erence range: 0-40 IU/ L. The reference range was not used to int erpret this result as normal/abnormal . ALT (SGPT) (test code 58 IU/L See_Comment H [Auto mated message] = 3222-6) The system [employer] generated this result transmitted ref erence range: 0-32 IU/ L. The reference range was not used to int erpret this result as normal/abnormal . CBC With Differential/[id number] 00:00:00 Test Item Value Reference Range Interpretation Comments WBC (test code = 12.4 x10E3/uL See_Comment H [Automate d 1379-2) message] The sy stem which generated this result transmitted reference range : 3.4-10.8 x10E3/ uL. The reference r harriet was not used to interpret this result as normal/abnormal . RBC (test code = 4.82 x10E6/uL See_Comment [Automate d 609-8) message] The sy stem which generated this result transmitted reference range : 3.77-5.28 x10E6 /uL. The reference r harriet was not used to interpret this result as normal/abnormal . Hemoglobin (test code 14.6 g/dL See_Comment [Auto mated = 548-7) message] The sy stem which generated this result transmitted reference range : 11.1-15.9 g/dL. The reference range was not used to interpret this result as normal/abnormal . Hematocrit (test code 43.1 % See_Comment [Auto mated = 8314-3) message] The sy stem which generated this result transmitted reference range : 34.0-46.6 %. Th e reference range was not used to interpret this result as normal/abnormal . MCV (test code = 89 fL See_Comment [Automated 147-2) message] The sy stem which generated this result transmitted reference range : 79-97 fL. The reference range was not used to interpret this result as normal/abnormal . MCH (test code = 30.3 pg See_Comment [Automated 255-6) message] The sy stem which generated this result transmitted reference range : 26.6-33.0 pg. T he reference range was not used to interpret this result as normal/abnormal . MCHC (test code = 33.9 g/dL See_Comment [Automate d 843-4) message] The sy stem which generated this [...] % Not Estab. % (test code = 20531-1) Immature Grans (Abs) 0.0 x10E3/uL See_Comment [Autom ated (test code = 64044-8) messag e] The system which generated this result transmitted reference range : 0.0-0.1 x10E3/u L. The reference r harriet was not used to interpret this result as normal/abnormal . NRBC (test code = 37393-6) Hematology Comments: (test code = 55230-3) TSH+Free [id number] 00:00:00 Test Item Value Reference Range Interpretation Comments TSH-ICMA (test code = 3016-3) 3.8 uU/mL Free T4 by Dialysis/Gin Operator (test 1.6 ng/dL code = 6892-4) - XR FLUORO FOR SPINE [id number] 14:34:00 [facility] : 1965 Sex: F FAX: Luis Teixeira MD [phone] [place]: C St: REG Patient Name: SRINI JOSÉ Unit No: [id number] EXAMS: CPT CODE: [id number] XR FLUORO FOR SPINE INJ 37694 Location: T 18 INDICATION: ONELIA IMPRESSION: 12 seconds of intraoperative fluoroscopy provided for lumbar ONELIA. I was not present for or involved with the procedure or provided fluoroscopy. Please refer to the procedure note for details. Radiation dose 7 mGy (PSD). at 1434 Reported and signed by: Santino Golden M.D. CC: Luis Porter MD Dictated Date/Time: 04/11/2020 (7138)Technologist: Maurizio Perla Transcribed Date/Time: 04/11/2020 (8729) By: [email or web address] Orig Print D/T: S: 04/11/2020 (9855) JAY anderson NAME: SRINI JOSÉ MEDICAL IMAGING PHYS: Luis Mora MD [address] [place] [address] BLVD : 1965 AGE: 54 SEX: SARAH CHAVES [address] LOC: LORRAINEU PHONE #: [phone] EXAM DATE: 04/11/2020 [place]US: [place] [facility] [place]: [phone] RAD NO: DC Dt: PAGE 1 Signed ReportGLUCOSE BEDSIDE [id number] 11:35:00 Test Item Value Reference Range Interpretation Comments GLUCOSE BEDSIDE TESTING (test code 189 MG/DL 70-119 H = GLUBED) COVID Asymptomatic IH [id number] 12:52:00 Test Item Value Reference Interpretation Comments [...] i ts performancechar acteristics were determined by [facility]. Thi s test has notbeen FDA [...] setting? No? NoAge at collection: YHCG SERUM [id number] 12:55:00 Test Item Value Reference Range Interpretation [...] 1 NORMAL code = LIPINDEX) Index/DL HGB [id number] 12:38:00 Test Item Value Reference Range Interpretation Comments RED BLOOD CELL (test code = RBC) 4.52 M/mm3 3.8-5.5 N HEMOGLOBIN (test code = HGB) 13.4 G/DL 10.6-15.8 N HEMATOCRIT (test code = HCT) 42.3 % 31.8-47.4 N MEAN CELL VOLUME (test code = MCV) 93.6 fL 80.1-101.1 N - XR CHEST 2 [id number] 12:21:00 [facility] : 1965 Sex: F FAX: Luis Teixeira MD [phone] [place]: [address] St: PRE Patient Name: SRINI JOSÉ Unit No: [id number] EXAMS: CPT CODE: [id number] XR CHEST 2 V 31029 Site ID: [id number] HISTORY: Preoperative FINDINGS: The lungs are clear and normally expanded. The heart and pulmonary vasculature is normal. Osseous structures are unremarkable. IMPRESSION: Normal preoperative chest x-ray [id number] Reported and signed by: Santino Golden M.D. CC: Luis Porter MD Dictated Date/Time: 04/06/2020 (1221)Technologist: Smith Benton Transcribed Date/Time: 04/06/2020 (1221) By: [email or web address] Orig Print D/T: S: 04/06/2020 (7576) 503 Imaging NAME: SRINI JOSÉ [address] [place] [address] PHYS: Luis Mora MD [place] : 1965 AGE: 54 SEX: F [phone] LOC: SHADI PHONE #: [phone] EXAM DATE: 04/06/2020 [place]US: [place] [facility] [place]: [phone] RAD NO: DC Dt: PAGE 1 Signed ReportGLUCOSE BEDSIDE [id number] 07:49:00 Test Item Value Reference Range Interpretation Comments GLUCOSE BEDSIDE TESTING (test code 141 MG/DL 70-119 H = GLUBED) Novel Coronavirus 2019 [id number] 18:08:00 Test Item Value Reference Range Interpretation [...] frannie gnosis of COVID-19 infect ion under jdjrohm123(b)(1 ) of the Act, 21 U.S.C. 360bbb-3(b) [...] resul t in this assay.Performed At: [facility] [place] [id number] [place], [place] [id number] fady Gillis MD Ph:[phone] UR HCG [id number] 16:55:00 Test Item Value Reference Range Interpretation Comments UR HCG QUAL (test NEGATIVE NEG Very dilut e urines with a code = HCGQLU) low specific gravity may notcontain repr esentative levels of hCG. - XR CHEST 2 [id number] 16:55:00 [facility] : 1965 Sex: F FAX: Luis Teixeira MD [phone] [place]: O St: PRE Patient Name: SRINI JOSÉ Unit No: [id number] EXAMS: CPT CODE: [id number] XR CHEST 2 V 38863 - XR CHEST 2 V LOCATION: T18 [...] Print D/T: S: 03/01/2020 (1657) [facility] NAME: SRINI JOSÉ MEDICAL IMAGING DEPARTMENT PHYS: Luis Mora MD [address] [place] [address] BLVD : 1965 AGE: 54 SEX: F [place], [place] [address] LOC: SHADI PHONE #: [phone] EXAM DATE: 03/01/2020 [place]: [place] [facility] [place]: [phone] RAD NO: DC Dt: PAGE 1 Si gned ReportCOMPREHENSIVE METABOLIC [id number] 16:39:00 Test Item Value Reference Range Interpretation [...] code = LIPINDEX) MG Index/DL COMPREHENSIVE METABOLIC [id number] 16:34:00 Test Item Value Reference Range Interpretation [...] MG 1 NORMAL = LIPINDEX) Index/DL HGB [id number] 16:22:00 Test Item Value Reference Range Interpretation Comments RED BLOOD CELL (test code = RBC) 4.61 M/mm3 3.8-5.5 N HEMOGLOBIN (test code = HGB) 13.6 G/DL 10.6-15.8 N HEMATOCRIT (test code = HCT) 42.7 % 31.8-47.4 N MEAN CELL VOLUME (test code = MCV) 92.6 fL 80.1-101.1 N
--- NOTE | 2023-01-20 15:28 | EDPHYS ---
Physician Documentation [facility] Name: Brandee Rajan Age: 57 yrs Sex: Female : 1965 Arrival Date: 01/20/2023 Time: 15:03 Bed IW1 Private MD: ED Physician Gino Lizarraga HPI: 01/20 15:24 This 57 yrs old Female presents to ER via Ambulatory with complaints of Drainage from rn Belly button. 15:24 The patient presents with cellulitis of the abdomen. Onset: The symptoms/episode rn began/occurred 4 day(s) ago. Possible cause(s): unknown. Modifying factors: the symptoms are alleviated by nothing, the symptoms are aggravated by nothing. Severity of symptoms: At their worst the symptoms were mild, in the emergency department the symptoms are unchanged. The patient has not experienced similar symptoms in the past. Patient reports had boil on lower abdomen that popped and has been draining for a few days. Now has noticed some clear sticky drainage from her bellybutton. No pain or tenderness of abdomen or bellybutton itself. No fever.. Historical: - Allergies: 15:19 No Known Allergies; hb - PMHx: 15:19 Chronic obstructive lung disease; Arthritis; Hypertensive disorder; hb Hypercholesterolemia; thyroid; diabetes mellitus; acid reflux; Anxiety; - PSHx: 15:19 breast reduction; Cholecystectomy; hb - Immunization history:: Adult Immunizations up to date. - Social history:: Smoking status: Patient denies any tobacco usage or history of. - Family history:: not pertinent. - Hospitalizations: : No recent hospitalization is reported. ROS: 15:24 Constitutional: Negative for fever, chills, and weight loss, Cardiovascular: Negative rn for chest pain, palpitations, and edema, Respiratory: Negative for shortness of breath, cough, wheezing, and pleuritic chest pain, Abdomen/GI: Negative for abdominal pain, nausea, vomiting, diarrhea, and constipation, Skin: Negative for injury, positive for drainage from bellybutton and lower abdominal wall Exam: 15:24 Constitutional: This is a well developed, well nourished patient who is awake, alert, rn and in no acute distress. Abdomen/GI: Soft, non-tender, no purulence expressed with pressure in and around the bellybutton. Does have open wound to right lower abdominal wall that seems more of an unroofed abscess. No longer fluctuant. Mild erythema around it. Vital Signs: 15:20 BP 142 / 78; Pulse 80; Resp 16; Temp 98.1; Pulse Ox 100% on R/A; Pain 1/10; hb 15:20 Pain Scale: Adult hb MDM: 15:07 Patient medically screened. rn 15:24 Differential diagnosis: cellulitis. Data reviewed: vital signs, nurses notes, and as a rn result, I will discharge patient. Counseling: I had a detailed discussion with the patient and/or guardian regarding the historical points, exam findings, and any diagnostic results supporting the discharge/admit diagnosis, the need for outpatient follow up, to return to the emergency department if symptoms worsen or persist or if there are any questions or concerns that arise at home. Special discussion: I discussed with the patient/guardian in detail that at this point there is no indication for admission to the hospital. It is understood, however, that if the symptoms persist or worsen the patient needs to return immediately for re-evaluation. Based on the history and exam findings, there is no indication for further emergent testing or inpatient evaluation. I discussed with the patient/guardian the need to see the primary care provider for further evaluation of the symptoms. ED course: Patient with unroofed abscess and no longer requires incision and drainage. Most likely omphalitis as well. Will DC home with antibiotics for both. Also given instructions to clean bellybutton and keep dry and given return precautions.. 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
--- NOTE | 2023-01-20 15:28 | ER ---
Nurse's Notes [facility] – [place], [place] Name: Brandee Rajan Age: 57 yrs Sex: Female : 1965 Arrival Date: 01/20/2023 Time: 15:03 Bed IW1 Private MD: Diagnosis: Omphalitis without hemorrhage;Cellulitis of abdominal wall Presentation: 01/20 15:18 Chief complaint: Drainage from belly button x 2-3 days. Coronavirus screen: At this hb time, the client does not indicate any symptoms associated with coronavirus-19. Ebola Screen: No symptoms or risks identified at this time. Initial Sepsis Screen: Does the patient meet any 2 criteria? No. Patient's initial sepsis screen is negative. Does the patient have a suspected source of infection? No. Patient's initial sepsis screen is negative. Risk Assessment: Do you want to hurt yourself or someone else? Patient reports no desire to harm self or others. Onset of symptoms was January 20, 2023. 15:18 Method Of Arrival: Ambulatory hb 15:18 Acuity: ONELIA 4 hb Historical: - Allergies: 15:19 No Known Allergies; hb - PMHx: 15:19 Chronic obstructive lung disease; Arthritis; Hypertensive disorder; hb Hypercholesterolemia; thyroid; diabetes mellitus; acid reflux; Anxiety; - PSHx: 15:19 breast reduction; Cholecystectomy; hb - Immunization history:: Adult Immunizations up to date. - Social history:: Smoking status: Patient denies any tobacco usage or history of. - Family history:: not pertinent. - Hospitalizations: : No recent hospitalization is reported. Vital Signs: 15:20 BP 142 / 78; Pulse 80; Resp 16; Temp 98.1; Pulse Ox 100% on R/A; Pain 1/10; hb 15:20 Pain Scale: Adult hb ED Course: 15:04 Patient arrived in ED. rg4 15:06 Gino Lizarraga MD is Attending Physician. rn 15:19 Triage completed. hb 15:19 Arm band placed on. hb Administered Medications: No medications were administered Outcome: 15:28 Discharge ordered by MD. rn 15:30 Discharged to home ambulatory, hb 15:30 Condition: stable 15:30 Discharge instructions given to patient, Instructed on discharge instructions, follow up and referral plans. medication usage, Demonstrated understanding of instructions, follow-up care, medications, Prescriptions given X 1, 15:30 Patient left the ED. hb Signatures: Gino Lizarraga MD MD rn Baxter, Heather, RN RN hb Garcia, Rubi rg4
[2023-01-20 15:35] VITALS: BP 142/78; TEMP 98.1; O2SAT 100
== END 2023-01-20 15:30 | disposition home or self-care (01) ==
LOC: ER 15:03
DX: L03.311 Cellulitis of abdominal wall (principal); L08.82 Omphalitis not of newborn
CPT/HCPCS: 99283

== ENCOUNTER 2023-12-29 12:37 | Day surgery (SDC) | payer OTHER ==
[2023-12-17 16:24] LABS: Absolute Eosinophils 0.1 K/uL (0-0.5); Absolute Lymphocytes (CBC) 2.3 K/uL (0.7-4.9); Absolute Monocytes 0.7 K/uL (0.1-1.3); Absolute Neutrophil 8.1 K/uL (1.8-8.0); Basophils % 0.3 % (0-1.3); Eosinophils % 1.2 % (0-4.4); Hematocrit 37.6 % (36.0-45.0); Hemoglobin 12.7 g/dL (12.0-15.0); Lymphocytes % 20.9 % (15.3-44.8); MCH 30.4 pg (27.0-35.0); MCHC 33.8 g/dL (32.0-36.0); MCV 89.8 fL (80-100); MPV 9.4 fL (7.6-11.3); Monocytes % 6.1 % (3.3-12.3); Neutrophils % 71.5 % (41.7-73.7); Nucleated Red Blood Cells % 0.1 % (0-0); Platelets 289 thou/uL (152-406); RBC Red Blood Cell Count 4.19 M/uL (3.86-4.86); Red Cell Distribution Width 14.3 % (12.1-15.2)
[2023-12-17 16:25] LABS: Anion Gap 9.6 mEq/L (5.0-15.0); Potassium 3.6 mEq/L (3.5-5.1)
--- NOTE | 2023-12-18 16:53 | EKG ---
Test Date: 2023-12-17 Test Time: 15:55:12 Fire Production Operator: ISAURA MEASUREMENT RESULTS: Intervals: Rate: 77 MT: 142 QRSD: 90 QT: 386 QTc: 436 Tracy: P: 63 MT: 142 QRS: 9 T: 63 INTERPRETIVE STATEMENTS: Normal sinus rhythm Normal ECG Compared to ECG 04/14/2022 00:33:30 Ventricular premature complex(es) no longer present Electronically Signed On 12-18-23 16:50:23 CDT by Kulwinder Davis
[2023-12-29] MEDS: NA CHLORIDE 0.9% 1,000 ML ONE (12:45)
[2023-12-29] MEDS ORDERED: FENTANYL CITR 100 MCG/2 ML ONE ×2 (13:28→14:42)
[2023-12-29] MEDS ORDERED: propofoL 200 MG/20 ML VIAL IV ONE (13:28)
[2023-12-29] MEDS ORDERED: MIDAZOLAM HCL 2 MG/2 ML INJ ONE (13:28)
[2023-12-29] MEDS ORDERED: ROCURONIUM 50 MG/5 ML VIAL IV ONE (13:28)
[2023-12-29] MEDS ORDERED: LIDOCAINE 2% MPF 5 ML VIAL ONE (13:28)
[2023-12-29] MEDS ORDERED: FAMOTIDINE 20 MG/2 ML VIAL IV ONE (13:37)
[2023-12-29] MEDS ORDERED: SUGAMMADEX SODIUM 200 MG/2 ML VIAL IV ONE (13:37)
[2023-12-29] MEDS ORDERED: SUCCINYLCHOLINE 20 MG/ML (10 ML) IV ONE (13:37)
[2023-12-29] MEDS: CEFAZOLIN SODIUM 2 GM/VIAL ONE (14:35)
[2023-12-29] MEDS: LIDOCAINE HCL/EPINEPHRINE 20 ML MDV ONE (14:44)
[2023-12-29] MEDS ORDERED: ONDANSETRON 4 MG/2 ML VIAL ONE (14:57)
[2023-12-29] MEDS ORDERED: dexAMETHasone 4 MG/ML VIAL ONE (14:57)
[2023-12-29] MEDS ORDERED: KETOROLAC 30 MG/ML INJ ONE (14:57)
--- NOTE | 2023-12-29 15:22 | P.OP ---
Preoperative diagnosis: Umbilical Hernia, RUQ skin lesion Postoperative diagnosis: Umbilical Hernia, RUQ skin lesion Primary procedure: Laparoscopic Umbilical Hernia Repair with mesh Secondary procedure: Excision of RUQ skin lesion Anesthesia: GETA + Local Estimated blood loss: <5cc Specimen: Hernia contents, skin lesoin Findings: ~ 2cm umbilical hernia Complications: None Implants: Bard Ventralite ST 11.4cm round with echo, sorbafix x 45 Transferred to: Recovery Room Condition: Good
[2023-12-29] MEDS: FENTANYL CITR 100 MCG/2 ML ONE (15:48)
[2023-12-29] MEDS ORDERED: HYDROCODONE/APAP 7.5/325 MG TAB ONE (16:21)
[2023-12-29] MEDS: HYDROCODONE/APAP 7.5/325 MG TAB PO ONE (16:23)
[2023-12-29 17:16] VITALS: BP 132/56; O2SAT 97
[2023-12-29 17:17] VITALS: TEMP 97
--- NOTE | 2023-12-30 02:00 | OP ---
Date of Procedure: 12/29/2023 Surgeon: Chucky Nicole MD, Preoperative Diagnosis: Umbilical hernia and right upper quadrant skin lesion. Postoperative Diagnosis: Umbilical hernia and right upper quadrant skin lesion. Procedure Performed: 1.Laparoscopic umbilical hernia repair with mesh. 2.Excision of right upper quadrant skin lesion. Anesthesia: General endotracheal plus local with 0.25% Marcaine. Estimated Blood Loss: Less than 5 cc. Specimen: Hernia contents and skin lesion. Findings: Approximately 2 cm umbilical hernia and approximately 1 cm right upper quadrant skin lesio n. Complications: None. Implants: Bard Ventralight ST mesh with Echo Positioning System, 11.4 cm mesh utilized; SorbaFix abs orbable fixation tacks x45; and AbsorbaTack x3. Disposition: The patient was transferred to recovery room in good condition. Procedure In Detail: After informed consent was obtained, patient brought to operating room, prepped and draped in the usual sterile fashion. After adequate anesthesia achieved, I anesthetized an area of the left upper quadrant down to the subcutaneous tissues. A 5 mm 0 degree optical trocar was int roduced in the abdomen without incident or complication. Insufflation was obtained to 15 mmHg at thi s time. No injury to vital structure upon entering the abdomen. Additional trocar was placed in the left mid abdomen. This was similarly anesthetized and sharply incised. A 12 mm trocar was placed u nder direct vision without incident or complication. I then proceeded to take down the umbilical her unique contents, omental attachments as well as preperitoneal fat from the umbilical defect using the Li gaSure device. After this was swept back, I ligated the hernia contents, placed in EndoCatch bag, re moved through the umbilical trocar site, and sent off for pathologic examination. I then proceeded t o close the umbilical hernia defect using an Endo Stitch with 0 V-Loc suture in a running fashion wit h good approximation of tissues. I then deployed 11.4 cm Bard Ventralight mesh with Echo Positioning System at this central portion of the defect, secured to the anterior abdominal wall using SorbaFix absorbable fixation tacks x45, total tacks used. The was attempted to be used, but had di fficulty firing. As such, I used the AbsorbaTack instead. At this point, the mesh was in good posit ion. The balloon deployment system was removed and found to be intact on the back table. I then shawn sed the 12 mm trocar site using a Kurt-Claudette suture passer with 0 Vicryl in interrupted fashion with good approximation of tissues. The abdomen was desufflated under direct visualization without i ncident or complication. All skin incisions were then copiously irrigated and closed with a 4-0 [place] cryl in a running fashion Dermabond was placed over the top. I then turned my attention to the right upper quadrant skin incision lesion. I made a shave biopsy of this area using a 10-blade down into the deep dermal plane, but not beyond the dermal plane. At this point, the area was rinsed, irrigate d and closed using interrupted 3-0 nylon sutures and a sterile dressing was placed over the top. The patient tolerated procedure well without incident or complication and transferred to PACU in good co ndition. All counts were correct at the end of the case. RESHMA/RADHIKA Voice ID: [id number] Report ID: [id number]
== END 2023-12-29 17:16 | disposition home or self-care (01) ==
LOC: OR 12:37
PROVIDERS: ATTEND Surgery
PROC: 0HB7XZZ Excision of Abdomen Skin, External Approach (ICD-10-PCS; 2023-12-29)
PROC: 0WUF4JZ Supplement Abdominal Wall with Synthetic Substitute, Percutaneous Endoscopic Approach (ICD-10-PCS; principal; 2023-12-29 14:45)
DX: K42.9 Umbilical hernia without obstruction or gangrene (principal); C44.519 Basal cell carcinoma of skin of other part of trunk
CPT/HCPCS: 49591; 11401; 93005; 85025; 80048; 36415; 82947 ×2; 88304; 88305; J2704; J1100; J2001; J2250; J3010 ×3; J2405; J7030; C1781; 88302

== ENCOUNTER 2024-02-01 21:57 | Emergency (ER) | payer OTHER ==
--- OUTSIDE RECORDS SUMMARY | 2024-02-01 22:02 | XMS REPORT | Continuity of Care Document ---
Author Name Unknown Address [address] [facility] [address] [place] [address] [facility] thconnect Address [address] [facility] [place] [address] Care Team Providers Care Surveillance Manager Name Role Phone Jessa Ruelas Primary Care Physician [phone] Chayo Gonzalez Attending Clinician Unavailable Jessa Ruelas Attending Clinician Unavailable Luis Porter Attending Clinician Unavaila TERESA Bridges Attending Clinician Unavailable Lab, Ang - Db Attending Clinician Unavailable Teresa Espana MD Attending Clinician Tiesha Frost MD Attending Clinician TIESHA FROST Attending Clinician Unavailable Doctor Unassigned, [place] Attending Clinician U navailable Lab, Ang - Db Attending Clinician Unavailable Teresa Espana MD Attending Clinician SAFIA HOGAN Attending Clinician Unavailable [email or web address] Attending Clinician UnavailYesika Salamanca Admitting Clinician Unavailable Physician, No Primary or Family Admitting Clinic adina Unavailable TERESA ESPANA Admitting Clinician Unavailable [email or web address] Admitting Clinician Unavailbijal fish Payers Payer Name Policy Type Policy Number Effective Date Expirati on Date Source [facility] MEDIC[facility] 53 [id number] 2019 00:00:00 [facility] MEDICARE 53 [id number] 2021 00:00:00 [facility] (MEDICARE REPLACEMENT/ADV ANTAGE - HMO) [id number] [place] [id number] [employer] MEDICARE C1 [id number] 2019 00:00[facility] [id number] 2019 00:00:00 [facility] MEDICARE C1 [id number] 2019 00:00:00 [facility] MEDICARE C1 [id number] 2019 00:00:00 [facility] [employer] MEDICARE C1 [id number] 2019 [facility] [id number] 2019 00:00:00 [facility] MEDICARE [id number] 2019 [facility] [id number] 2019 00:00:00 [facility] Problems Condition Name Condition Details Condition Category Status Onset Date Resolution Date Last Treatment Date Treating Clinician Comments Source Candidiasi s of vagina Candidiasi s of Vagina Problem Active 2023-03 00:00: 00 [facility] Nicotine dependence Nicotine Dependence Problem Active 2023-03 00:00: 00 [facility] Abscess of skin and/or subcutaneo us tissue Abscess of Skin And/or Subcutaneo us Tissue Problem Active 2023-03 1-14 00:00: 00 [facility] Morbid obesity Morbid obesity Disease Active 09-02 00:00: 00 [facility] Primary hypertensi on Primary hypertensi on Disease Active 09-02 00:00: 00 [facility] FRANCESCA on CPAP FRANCESCA on CPAP Disease Active 09-02 00:00: 00 [facility] Fatigue, unspecifie d type Fatigue, unspecifie d type Disease Active 09-02 00:00: 00 [facility] Cigarette smoker Cigarette smoker Disease Active 09-02 00:00: 00 [facility] Hyperlipid emia, unspecifie d hyperlipid emia type Hyperlipid emia, unspecifie d hyperlipid emia type Disease Active 09-02 00:00: 00 [facility] Hypothyroi dism Hypothyroi dism Problem Active 11-12 00:00: 00 [facility] Type 2 diabetes mellitus Type 2 Diabetes Mellitus Problem Active 11-12 00:00: 00 [facility] Depressive disorder Depressive Disorder Problem Active 11-12 00:00: 00 [facility] Chronic obstructiv e pulmonary disease Chronic Obstructiv e Pulmonary Disease Problem Active 11-12 00:00: 00 [facility] Gastroesop hageal reflux disease Gastroesop hageal Reflux Disease Problem Active 11-12 00:00: 00 [facility] Adrenal mass 1 cm to 4 cm in diameter Adrenal mass 1 cm to 4 cm in diameter Disease Active 20 00:00: 00 [facility] [id number] Type 2 diabetes mellitus with hyperglyce juan c Problem [facility] Sinus problem Sinus problem Problem [facility] [id number] Mixed hyperlipid emia Problem [facility] [id number] Other chronic pain Problem [facility] [id number] Depression with anxiety Problem [facility] Gallstones Gallstones Problem [facility] [id number] Type 2 diabetes mellitus without complicati ons Problem [facility] [id number] Mixed stress and urge urinary incontinen ce Problem [facility] [id number] 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 Problem [facility] [id number] Cigarette nicotine dependence with nicotine-i nduced disorder Problem [facility] Anxiety Anxiety Problem [facility] Allergic rhinitis Allergic rhinitis Problem [facility] Diabetes mellitus without complicati on Diabetes DMII without complicati ons Problem [facility] [id number] 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 Problem [facility] [id number] Acute bronchitis , unspecifie d organism Problem [facility] [id number] Lumbar degenerati ve disc disease Problem [facility] [id number] Lesion of plantar nerve, left lower limb Problem [facility] [id number] 65124 Pain in left foot Problem [facility] [id number] 44124 Posterior tibial tendinitis , left leg Problem [facility] Seizure Seizures Problem [facility] 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 (disorder) Type 2 diabetes mellitus with both eyes affected by mild nonprolife rative retinopath y without macular edema, without long-term current use of insulin Problem [facility] Memory problem Memory problem Problem [facility] Acquired hypothyroi dism Acquired hypothyroi dism Problem [facility] [id number] Suspected ingested foreign body not found after observatio n Problem [facility] [id number] Type 2 diabetes mellitus with other diabetic kidney complicati on Problem [facility] [id number] Pain, joint, knee, left Problem [facility] [id number] 41580 Pain, joint, knee, right Problem [facility] [id number] Leukocytos is, unspecifie d type Problem [facility] [id number] Primary osteoarthr itis of right knee Problem [facility] [id number] Postmenopa usal bleeding Problem [facility] Allergies, Adverse Reactions, Alerts Allergy Name Allergy Type Status Severity Reaction(s) Onset Date Inactive Date Treating Clinician Comments Source cedarwoo d DA Active [place] 04-06 00:00: 00 [facility] ragweed pollen DA Active [place] 04-06 00:00: 00 [facility] cedarwoo d DA Active LA SINUS PROBLEMS 04-06 00:00: 00 [facility] ragweed pollen DA Active LA SINUS PROBLEMS 04-06 00:00: 00 [facility] No Known Allergie s DA Active U 2019-03 00:00: 00 [facility] No Known Allergie s DA Active U 2019-03 00:00: 00 [facility] NO KNOWN ALLERGIE S Drug Class Active [facility] Social History Social Habit Start Date Stop Date Quantity Comments Source Sex Assigned At [facility] Sexual orientation U [facility] History of tobacco use Passive smoker [facility] History of Social function 2023-09-03 00:00:00 2023-09-03 00:00:00 [facility] Tobacco use and exposure 2023-09-03 00:00:00 2023-09-03 00:00:00 Smokeless tobacco non-user [facility] Exposure to SARS-CoV-2 (event) 2022-05-06 00:00:00 2022-05-16 15:29:00 Not sure [facility] Smoking Status Start Date Stop Date Source Unknown if ever smoked [facility] Smokes tobacco daily 2023-09-03 00:00:00 [facility] Medications Ordered Medication Name Filled Medication Name Start Date Stop Date Current Medication? Ordering Clinician Indication Dosage Frequency Signature (SIG) Comments Components Source ACCU-CHEK GUIDE TEST STRIPS strip 2023-03 0-07 00:00: 00 Yes [id number] TEST BLOOD SUGAR TWICE DAILY [facility] Insulin [place], Disposable, (DROPLET PEN NEEDLE) 32 gauge x 5/32" Ndle 10-20 00:00: 00 Yes [id number] 1{each} inject 1 Each under the skin in the morning. [facility] Insulin [place], Disposable, (DROPLET PEN NEEDLE) 32 gauge x 5/32" Ndle 12 00:00: 00 10-20 00:00 :00 No [id number] 1{each} inject 1 Each under the skin in the morning. [facility] cetirizine 10 mg tablet 09-02 14:19: 02 Yes 10mg Take 1 tablet by mouth in the morning. [facility] benzonatate 100 mg capsule 09-02 14:19: 02 Yes [id number] Take 100 capsules by mouth in the morning. [facility] dexAMETHaso ne 1 mg tablet 07-23 00:00: 00 Yes [id number] 1mg Take 1 tablet by mouth SEE-INSTRU CTIONS. Take at 23:00 for dexamethas one suppressio n test, night before blood draw [facility] iopamidol (ISOVUE 370-500 mL) injection 100 mL 07-11 17:15: 00 07-11 17:17 :00 No [id number] 100mL 100 mL, Intravenou s, ONCE, 1 dose, On 07/12/23 at 1230, Routine [facility] dexAMETHaso ne 1 mg tablet 30 00:00: 00 07-23 00:00 :00 No [id number] 1mg Take 1 tablet by mouth SEE-INSTRU CTIONS. Take at 23:00 for dexamethas one suppressio n test, night before blood draw [facility] Levothyroxi ne Sodium 75 MCG Levothyroxi ne Sodium 75 MCG 2022-03 00:00: 00 No QD Levothyrox ine Sodium 75 MCG ACCU-CHEK GUIDE TEST STRIPS strip 2022-03- 00:00: 00 12-14 00:00 :00 No [id number] TEST BLOOD SUGAR TWICE DAILY [facility] dulaglutide (TRULICITY) 3 mg/0.5 mL PnIj 11-12 00:00: 00 07-07 00:00 :00 No [id number] 3mg inject 1 Pen under the skin weekly. [facility] ACCU-CHEK GUIDE TEST STRIPS strip 05-14 00:00: 00 02-19 00:00 :00 No [id number] TEST 2 TIMES DAILY E11.65 [facility] dulaglutide (TRULICITY) 1.5 mg/0.5 mL PnIj 05-14 00:00: 00 11-12 00:00 :00 No [id number] 1.5mg inject 1 Pen under the skin weekly. [facility] dulaglutide (TRULICITY) 0.75 mg/0.5 mL PnIj 03-17 00:00: 00 05-14 00:00 :00 No [id number] INJECT 0.75MG (1 PEN) SUBCUTANEO USLY EVERY WEEK [facility] amLODIPine Besylate 5 MG amLODIPine Besylate 5 MG 11-15 00:00: 00 No 1{table t} amLODIPine Besylate 5 MG mirabegron (MYRBETRIQ) 50 mg tablet 10-30 19:09: 35 10-30 00:00 :00 No 50mg Take 50 mg by mouth daily. [facility] Insulin Glargine (LANTUS SOLOSTAR U-100 INSULIN) 100 unit/mL (3 mL) injection 10-30 12:32: 16 10-30 00:00 :00 No 68U inject 68 Units under the skin daily. Per sliding scale [facility] empaglifloz in (JARDIANCE) 25 mg Tab 10-30 00:00: 00 05-14 00:00 :00 No [id number] 25mg Take 1 tablet by mouth every morning. [facility] dulaglutide (TRULICITY) 0.75 mg/0.5 mL PnIj 10-30 00:00: 00 03-17 00:00 :00 No [id number] .75mg inject 1 Pen under the skin weekly. [facility] ACCU-CHEK GUIDE TEST STRIPS strip 10-20 00:00: 00 05-14 00:00 :00 No TEST 2 TIMES DAILY [facility] JANUMET 50-1,000 mg per tablet 09-29 00:00: 00 10-30 00:00 :00 No [facility] losartan 50 mg tablet 09-14 00:00: 00 Yes [facility] benzonatate 100 mg capsule 05-01 11:57: 13 Yes 100{cap elizabeth} Take 100 capsules by mouth daily. [facility] cetirizine 10 mg tablet 05-01 11:57: 13 Yes 10mg Take 10 mg by mouth daily. [facility] Trintellix 20 MG Trintellix 20 MG No 1{table t} QD Trintellix 20 MG Aspir-Low 81 MG Aspir-Low 81 MG No 1{table t} QD Aspir-Low 81 MG Gabapentin 300 MG Gabapentin 300 MG No Gabapentin 300 MG Pantoprazol e Sodium 40 MG Pantoprazol e Sodium 40 MG No 1{table t} QD Pantoprazo le Sodium 40 MG Pravastatin Sodium 20 MG Pravastatin Sodium 20 MG No 1{table t} QD Pravastati n Sodium 20 MG Ursodiol 250 MG Ursodiol 250 MG No Ursodiol 250 MG busPIRone HCl 15 MG busPIRone HCl 15 MG No busPIRone HCl 15 MG Losartan Potassium 100 MG Losartan Potassium 100 MG No 1{table t} QD Losartan Potassium 100 MG metFORMIN HCl ER 750 MG metFORMIN HCl ER 750 MG No 1{table t} BID metFORMIN HCl ER 750 MG Toujeo SoloStar 300 UNIT/ML Toujeo SoloStar 300 UNIT/ML No Toujeo SoloStar 300 UNIT/ML Varenicline Tartrate 1 MG Varenicline Tartrate 1 MG No 1{table t} BID Vareniclin e Tartrate 1 MG Nebulizer Air Tube/Plugs - Nebulizer Air Tube/Plugs - No Nebulizer Air Tube/Plugs - Albuterol Sulfate (2.5 MG/3ML) 0.083% Albuterol Sulfate (2.5 MG/3ML) 0.083% No 3{ml_as _needed } TID Albuterol Sulfate (2.5 MG/3ML) 0.083% Chlorphenir amine Maleate 4 MG Chlorphenir amine Maleate 4 MG No 1{table t_as_ne eded} QID Chlorpheni ramine Maleate 4 MG Mounjaro 10 MG/0.5ML Mounjaro 10 MG/0.5ML No Mounjaro 10 MG/0.5ML Accu-Chek Guide Glucose Meter USE DIRECTED Accu-Chek Guide Glucose Meter USE DIRECTED No Accu-Chek Guide Glucose Meter USE DIRECTED [facility] Accu-Chek Guide L1-L2 Control Solution Accu-Chek Guide L1-L2 Control Solution No Accu-Chek Guide L1-L2 Control Solution [facility] Accu-Chek Guide test strips TEST 2 TIMES DAILY Accu-Chek Guide test strips TEST 2 TIMES DAILY No Accu-Chek Guide test strips TEST 2 TIMES DAILY [facility] Accu-Chek Softclix Lancets Accu-Chek Softclix Lancets No Accu-Chek Softclix Lancets [facility] albuterol sulfate 2.5 mg/3 mL (0.083 %) solution for nebulizatio n prn albuterol sulfate 2.5 mg/3 mL (0.083 %) solution for nebulizatio n prn No albuterol sulfate 2.5 mg/3 mL (0.083 %) solution for nebulizati on prn [facility] Alive Hair, Skin and Nails Alive Hair, Skin and Nails No Alive Hair, Skin and Nails [facility] amlodipine 5 mg tablet amlodipine 5 mg tablet No amlodipine 5 mg tablet [facility] Bactrim DS 800 mg-160 mg tablet Take 1 tablet every 12 hours by oral route for 7 days. Bactrim DS 800 mg-160 mg tablet Take 1 tablet every 12 hours by oral route for 7 days. No 1 Q12H Bactrim DS 800 mg-160 mg tablet Take 1 tablet every 12 hours by oral route for 7 days. [facility] BD Janet 2nd Gen Pen Needle 32 gauge x 5/32" USE DIRECTED TO INJECT UNDER THE SKIN ONCE DAILY IN THE MORNING BD Janet 2nd Gen Pen Needle 32 gauge x 5/32" USE DIRECTED TO INJECT UNDER THE SKIN ONCE DAILY IN THE MORNING No BD Janet 2nd Gen Pen Needle 32 gauge x 5/32" USE DIRECTED TO INJECT UNDER THE SKIN ONCE DAILY IN THE MORNING [facility] Breztri Aerosphere 160 mcg-9mcg-4. 8mcg/actuat ion HFA aerosol inhaler INHALE 2 PUFFS TWICE DAILY Breztri Aerosphere 160 mcg-9mcg-4. 8mcg/actuat ion HFA aerosol inhaler INHALE 2 PUFFS TWICE DAILY No Breztri Aerosphere 160 mcg-9mcg-4 .8mcg/actu ation HFA aerosol inhaler INHALE 2 PUFFS TWICE DAILY [facility] buspirone 15 mg tablet TAKE 1 TABLET BY MOUTH TWICE DAILY buspirone 15 mg tablet TAKE 1 TABLET BY MOUTH TWICE DAILY No buspirone 15 mg tablet TAKE 1 TABLET BY MOUTH TWICE DAILY [facility] fluconazole 150 mg tablet Take 1 tablet every 72 hours by oral route for 7 days. fluconazole 150 mg tablet Take 1 tablet every 72 hours by oral route for 7 days. No 1 fluconazol e 150 mg tablet Take 1 tablet every 72 hours by oral route for 7 days. [facility] gabapentin 300 mg capsule gabapentin 300 mg capsule No gabapentin 300 mg capsule [facility] iron iron No iron [facility] levothyroxi ne 75 mcg tablet TAKE 1 TABLET BY MOUTH IN THE MORNING ON AN EMPTY STOMACH FOR 90 DAYS levothyroxi ne 75 mcg tablet TAKE 1 TABLET BY MOUTH IN THE MORNING ON AN EMPTY STOMACH FOR 90 DAYS No levothyrox ine 75 mcg tablet TAKE 1 TABLET BY MOUTH IN THE MORNING ON AN EMPTY STOMACH FOR 90 DAYS [facility] losartan 100 mg tablet TAKE 1 TABLET BY MOUTH ONCE DAILY losartan 100 mg tablet TAKE 1 TABLET BY MOUTH ONCE DAILY No losartan 100 mg tablet TAKE 1 TABLET BY MOUTH ONCE DAILY [facility] metformin ER 750 mg tablet,exte nded release 24 hr metformin ER 750 mg tablet,exte nded release 24 hr No metformin ER 750 mg tablet,ext ended release 24 hr [facility] Mounjaro 10 mg/0.5 mL subcutaneou s pen injector Mounjaro 10 mg/0.5 mL subcutaneou s pen injector No Mounjaro 10 mg/0.5 mL subcutaneo us pen injector [facility] Multivitami n 50 Plus Multivitami n 50 Plus No Multivitam in 50 Plus [facility] nystatin 100,000 unit/gram topical ointment APPLY TO THE AFFECTED AREA(S) BY TOPICAL ROUTE 2 TIMES PER DAY nystatin 100,000 unit/gram topical ointment APPLY TO THE AFFECTED AREA(S) BY TOPICAL ROUTE 2 TIMES PER DAY No nystatin 100,000 unit/gram topical ointment APPLY TO THE AFFECTED AREA(S) BY TOPICAL ROUTE 2 TIMES PER DAY [facility] pantoprazol e 40 mg tablet,mayra yed release TAKE 1 TABLET BY MOUTH ONCE DAILY pantoprazol e 40 mg tablet,mayra yed release TAKE 1 TABLET BY MOUTH ONCE DAILY No pantoprazo le 40 mg tablet,del ayed release TAKE 1 TABLET BY MOUTH ONCE DAILY [facility] pravastatin 20 mg tablet pravastatin 20 mg tablet No pravastati n 20 mg tablet [facility] Toujeo Max U-300 SoloStar 300 unit/mL (3 mL) subcutaneou s insulin pen Toujeo Max U-300 SoloStar 300 unit/mL (3 mL) subcutaneou s insulin pen No Toujeo Max U-300 SoloStar 300 unit/mL (3 mL) subcutaneo us insulin pen [facility] Trintellix 20 mg tablet TAKE 1 TABLET BY MOUTH ONCE DAILY Trintellix 20 mg tablet TAKE 1 TABLET BY MOUTH ONCE DAILY No Trintellix 20 mg tablet TAKE 1 TABLET BY MOUTH ONCE DAILY [facility] Ultra Thin Lancets 31 gauge TEST 2 TIMES DAILY Ultra Thin Lancets 31 gauge TEST 2 TIMES DAILY No Ultra Thin Lancets 31 gauge TEST 2 TIMES DAILY [facility] ursodiol 250 mg tablet ursodiol 250 mg tablet No ursodiol 250 mg tablet [facility] varenicline 1 mg tablet varenicline 1 mg tablet No vareniclin e 1 mg tablet [facility] Immunizations Ordered Immunization Name Filled Immunization Name Date Status Comments Source Flucelvax - single dose syringe Flucelvax - single dose syringe 2022-02-14 16:15:00 Completed [facility] Flucelvax - single dose syringe Flucelvax - single dose syringe 2022-02-14 16:15:00 Completed [facility] Flucelvax - single dose syringe Flucelvax - single dose syringe 2022-02-14 16:15:00 Completed [facility] Flucelvax - single dose syringe Flucelvax - single dose syringe 2022-02-14 16:15:00 Completed [facility] Flucelvax - single dose syringe Flucelvax - single dose syringe 2022-02-14 16:15:00 Completed [facility] Fluarix (IIV3) - SDS - 0.5mL Fluarix (IIV3) - SDS - 0.5mL 2021-01-01 14:46:00 Completed [facility] Afluria Afluria 2021-01-01 14:46:00 Completed [facility] Afluria Afluria 2021-01-01 14:46:00 Completed [facility] Afluria Afluria 2021-01-01 14:46:00 Completed [facility] Afluria Afluria 2021-01-01 14:46:00 Completed [facility] Afluria Afluria 2021-01-01 14:46:00 Completed [facility] Afluria Afluria 2021-01-01 14:46:00 Completed [facility] Afluria Afluria 2021-01-01 14:46:00 Completed [facility] Afluria Afluria 2021-01-01 14:46:00 Completed [facility] Afluria Afluria 2021-01-01 14:46:00 Completed [facility] Afluria Afluria 2021-01-01 14:46:00 Completed [facility] Afluria Afluria 2021-01-01 14:46:00 Completed [facility] Afluria Afluria 2021-01-01 14:46:00 Completed [facility] Afluria Afluria 2021-01-01 14:46:00 Completed [facility] Afluria Afluria 2021-01-01 14:46:00 Completed [facility] Afluria Afluria 2021-01-01 14:46:00 Completed [facility] Afluria Afluria 2021-01-01 14:46:00 Completed [facility] Afluria Afluria 2021-01-01 14:46:00 Completed [facility] Fluzone Fluzone 2019-04-02 08:45:00 Completed [facility] Fluzone Fluzone 2019-04-02 08:45:00 Completed [facility] Fluzone Fluzone 2019-04-02 08:45:00 Completed [facility] Fluzone Fluzone 2019-04-02 08:45:00 Completed [facility] Fluzone Fluzone 2019-04-02 08:45:00 Completed [facility] Fluzone Fluzone 2019-04-02 08:45:00 Completed [facility] Fluzone Fluzone 2019-04-02 08:45:00 Completed [facility] Fluzone Fluzone 2019-04-02 08:45:00 Completed [facility] Fluzone Fluzone 2019-04-02 08:45:00 Completed [facility] Fluzone Fluzone 2019-04-02 08:45:00 Completed [facility] Fluzone Fluzone 2019-04-02 08:45:00 Completed [facility] Fluzone Fluzone 2019-04-02 08:45:00 Completed [facility] Fluzone Fluzone 2019-04-02 08:45:00 Completed [facility] Fluzone Fluzone 2019-04-02 08:45:00 Completed [facility] Fluzone Fluzone 2019-04-02 08:45:00 Completed [facility] Fluzone Fluzone 2019-04-02 08:45:00 Completed [facility] Fluzone Fluzone 2019-04-02 08:45:00 Completed [facility] Fluzone Fluzone 2019-04-02 08:45:00 Completed [facility] Fluzone Fluzone 2019-04-02 08:45:00 Completed [facility] Fluzone Fluzone 2019-04-02 08:45:00 Completed [facility] Fluzone Fluzone 2019-04-02 00:00:00 Completed [facility] Afluria Afluria Unknown Completed [facility] Fluzone Fluzone Unknown Completed [facility] Flucelvax - single dose syringe Flucelvax - single dose syringe Unknown Completed [facility] Afluria Afluria Unknown Completed [facility] Fluzone Fluzone Unknown Completed [facility] Flucelvax - single dose syringe Flucelvax - single dose syringe Unknown Completed [facility] Flucelvax - single dose syringe Flucelvax - single dose syringe Unknown Completed [facility] Fluzone Fluzone Unknown Completed [facility] Afluria Afluria Unknown Completed [facility] Afluria Afluria Unknown Completed [facility] Fluzone Fluzone Unknown Completed [facility] Flucelvax - single dose syringe Flucelvax - single dose syringe Unknown Completed [facility] Afluria Afluria Unknown Completed [facility] Fluzone Fluzone Unknown Completed [facility] Flucelvax - single dose syringe Flucelvax - single dose syringe Unknown Completed [facility] Afluria Afluria Unknown Completed [facility] Fluzone Fluzone Unknown Completed [facility] Flucelvax - single dose syringe Flucelvax - single dose syringe Unknown Completed [facility] Afluria Afluria Unknown Completed [facility] Fluzone Fluzone Unknown Completed [facility] Flucelvax - single dose syringe Flucelvax - single dose syringe Unknown Completed [facility] Afluria Afluria Unknown Completed [facility] Fluzone Fluzone Unknown Completed [facility] Flucelvax - single dose syringe Flucelvax - single dose syringe Unknown Completed [facility] Afluria Afluria Unknown Completed [facility] Fluzone Fluzone Unknown Completed [facility] Flucelvax (ccIIV4) - SDS - 0.5mL Flucelvax (ccIIV4) - SDS - 0.5mL Unknown Completed [facility] Afluria Afluria Unknown Completed [facility] Fluzone Fluzone Unknown Completed [facility] Flucelvax (ccIIV4) - SDS - 0.5mL Flucelvax (ccIIV4) - SDS - 0.5mL Unknown Completed [facility] Afluria Afluria Unknown Completed [facility] Fluzone Fluzone Unknown Completed [facility] Flucelvax (ccIIV4) - SDS - 0.5mL Flucelvax (ccIIV4) - SDS - 0.5mL Unknown Completed [facility] Afluria Afluria Unknown Completed [facility] Fluzone Fluzone Unknown Completed [facility] Flucelvax (ccIIV4) - SDS - 0.5mL Flucelvax (ccIIV4) - SDS - 0.5mL Unknown Completed [facility] Afluria Afluria Unknown Completed [facility] Fluzone Fluzone Unknown Completed [facility] Flucelvax (ccIIV4) - SDS - 0.5mL Flucelvax (ccIIV4) - SDS - 0.5mL Unknown Completed [facility] Afluria Afluria Unknown Completed [facility] Fluzone Fluzone Unknown Completed [facility] Flucelvax (ccIIV4) - SDS - 0.5mL Flucelvax (ccIIV4) - SDS - 0.5mL Unknown Completed [facility] Afluria Afluria Unknown Completed [facility] Fluzone Fluzone Unknown Completed [facility] Flucelvax (ccIIV4) - SDS - 0.5mL Flucelvax (ccIIV4) - SDS - 0.5mL Unknown Completed [facility] Afluria Afluria Unknown Completed [facility] Fluzone Fluzone Unknown Completed [facility] Flucelvax (ccIIV4) - SDS - 0.5mL Flucelvax (ccIIV4) - SDS - 0.5mL Unknown Completed [facility] Afluria Afluria Unknown Completed [facility] Fluzone Fluzone Unknown Completed [facility] Flucelvax (ccIIV4) - SDS - 0.5mL Flucelvax (ccIIV4) - SDS - 0.5mL Unknown Completed [facility] Afluria Afluria Unknown Completed [facility] Fluzone Fluzone Unknown Completed [facility] Flucelvax (ccIIV4) - SDS - 0.5mL Flucelvax (ccIIV4) - SDS - 0.5mL Unknown Completed [facility] Afluria Afluria Unknown Completed [facility] Fluzone Fluzone Unknown Completed [facility] Flucelvax (ccIIV4) - SDS - 0.5mL Flucelvax (ccIIV4) - SDS - 0.5mL Unknown Completed [facility] Afluria Afluria Unknown Completed [facility] Fluzone Fluzone Unknown Completed [facility] Flucelvax (ccIIV4) - SDS - 0.5mL Flucelvax (ccIIV4) - SDS - 0.5mL Unknown Completed [facility] Afluria Afluria Unknown Completed [facility] Fluzone Fluzone Unknown Completed [facility] Flucelvax (ccIIV4) - SDS - 0.5mL Flucelvax (ccIIV4) - SDS - 0.5mL Unknown Completed [facility] Afluria Afluria Unknown Completed [facility] Fluzone Fluzone Unknown Completed [facility] Flucelvax (ccIIV4) - SDS - 0.5mL Flucelvax (ccIIV4) - SDS - 0.5mL Unknown Completed [facility] Afluria Afluria Unknown Completed [facility] Fluzone Fluzone Unknown Completed [facility] Flucelvax (ccIIV4) - SDS - 0.5mL Flucelvax (ccIIV4) - SDS - 0.5mL Unknown Completed [facility] Afluria Afluria Unknown Completed [facility] Fluzone Fluzone Unknown Completed [facility] Flucelvax (ccIIV4) - SDS - 0.5mL Flucelvax (ccIIV4) - SDS - 0.5mL Unknown Completed [facility] Afluria Afluria Unknown Completed [facility] Fluzone Fluzone Unknown Completed [facility] Flucelvax (ccIIV4) - SDS - 0.5mL Flucelvax (ccIIV4) - SDS - 0.5mL Unknown Completed [facility] Afluria Afluria Unknown Completed [facility] Fluzone Fluzone Unknown Completed [facility] Flucelvax (ccIIV4) - SDS - 0.5mL Flucelvax (ccIIV4) - SDS - 0.5mL Unknown Completed [facility] Afluria Afluria Unknown Completed [facility] Fluzone Fluzone Unknown Completed [facility] Flucelvax (ccIIV4) - SDS - 0.5mL Flucelvax (ccIIV4) - SDS - 0.5mL Unknown Completed [facility] Afluria Afluria Unknown Completed [facility] Fluzone Fluzone Unknown Completed [facility] Flucelvax (ccIIV4) - SDS - 0.5mL Flucelvax (ccIIV4) - SDS - 0.5mL Unknown Completed [facility] Afluria Afluria Unknown Completed [facility] Fluzone Fluzone Unknown Completed [facility] Flucelvax (ccIIV4) - SDS - 0.5mL Flucelvax (ccIIV4) - SDS - 0.5mL Unknown Completed [facility] Afluria Afluria Unknown Completed [facility] Fluzone Fluzone Unknown Completed [facility] Flucelvax (ccIIV4) - SDS - 0.5mL Flucelvax (ccIIV4) - SDS - 0.5mL Unknown Completed [facility] Afluria Afluria Unknown Completed [facility] Fluzone Fluzone Unknown Completed [facility] Flucelvax (ccIIV4) - SDS - 0.5mL Flucelvax (ccIIV4) - SDS - 0.5mL Unknown Completed [facility] Afluria Afluria Unknown Completed [facility] Fluzone Fluzone Unknown Completed [facility] Flucelvax (ccIIV4) - SDS - 0.5mL Flucelvax (ccIIV4) - SDS - 0.5mL Unknown Completed [facility] Vital Signs Vital Name Observation Time Observation Value Comments S ource Body Weight 2024-01-22 00:00:00 238.4 [lb_av] [facility] Height 2024-01-22 00:00:00 64 [in_i] [facility] BP Systolic 2024-01-22 00:00:00 142 mm[Hg] [facility] BMI (Body Mass Index) 2024-01-22 00:00:00 40.9 kg/m2 [facility] BP Diastolic 2024-01-22 00:00:00 71 mm[Hg] [facility] Systolic blood pressure 2024-01-13 18:54:00 122 mm[Hg] [facility] Diastolic blood pressure 2024-01-13 18:54:00 80 mm[Hg] [facility] Heart rate 2024-01-13 18:54:00 65 /min [facility] Respiratory rate 2024-01-13 18:54:00 18 /min [facility] Body height 2024-01-13 18:54:00 162.6 cm [facility] Body weight 2024-01-13 18:54:00 108.727 kg [facility] BMI 2024-01-13 18:54:00 41.14 kg/m2 [facility] Oxygen saturation in Arterial blood by Pulse oximetry 2024-01-13 18:54:00 96 /min [facility] height 2023-12-16 11:00:00 64.50 [in_i] Com [facility] weight 2023-12-16 11:00:00 240 [lb_av] Comm on [facility] temperature 2023-12-16 11:00:00 97.5 [degF] Com [facility] bmi 2023-12-16 11:00:00 40.56 kg/m2 Comm on [facility] height 2023-10-31 15:00:00 64.50 [in_i] Com [facility] weight 2023-10-31 15:00:00 240 [lb_av] Comm on [facility] temperature 2023-10-31 15:00:00 97.4 [degF] Com [facility] bmi 2023-10-31 15:00:00 40.56 kg/m2 Comm on [facility] oximetry 2023-10-31 15:00:00 97 % [facility] respiratory rate 2023-10-31 15:00:00 16 /min [facility] blood pressure systolic 2023-10-31 15:00:00 128 mm[Hg] [facility] blood pressure diastolic 2023-10-31 15:00:00 74 mm[Hg] [facility] height 2023-10-06 08:40:00 64.50 [in_i] Com [facility] weight 2023-10-06 08:40:00 239 [lb_av] Comm on [facility] temperature 2023-10-06 08:40:00 97.2 [degF] Com [facility] bmi 2023-10-06 08:40:00 40.39 kg/m2 Comm on [facility] oximetry 2023-10-06 08:40:00 96 % [facility] respiratory rate 2023-10-06 08:40:00 16 /min [facility] blood pressure systolic 2023-10-06 08:40:00 128 mm[Hg] [facility] blood pressure diastolic 2023-10-06 08:40:00 74 mm[Hg] [facility] Systolic blood pressure 2023-09-03 19:21:00 147 mm[Hg] [facility] Diastolic blood pressure 2023-09-03 19:21:00 57 mm[Hg] [facility] Heart rate 2023-09-03 19:21:00 78 /min [facility] Oxygen saturation in Arterial blood by Pulse oximetry 2023-09-03 19:21:00 96 /min [facility] Body height 2023-09-03 19:19:00 162.6 cm [facility] Body weight 2023-09-03 19:19:00 111.131 kg [facility] BMI 2023-09-03 19:19:00 42.05 kg/m2 [facility] height 2023-07-30 14:00:00 64.50 [in_i] Com [facility] weight 2023-07-30 14:00:00 242 [lb_av] Comm on [facility] temperature 2023-07-30 14:00:00 97.5 [degF] Com [facility] bmi 2023-07-30 14:00:00 40.89 kg/m2 Comm on [facility] oximetry 2023-07-30 14:00:00 97 % [facility] respiratory rate 2023-07-30 14:00:00 16 /min [facility] blood pressure systolic 2023-07-30 14:00:00 126 mm[Hg] [facility] blood pressure diastolic 2023-07-30 14:00:00 74 mm[Hg] [facility] Systolic blood pressure 2023-07-08 16:48:00 142 mm[Hg] [facility] Diastolic blood pressure 2023-07-08 16:48:00 67 mm[Hg] [facility] Heart rate 2023-07-08 16:48:00 98 /min [facility] height 2023-07-08 16:48:00 162.6 cm [facility] Body weight 2023-07-08 16:48:00 110.133 kg [facility] BMI 2023-07-08 16:48:00 41.68 kg/m2 [facility] height 2023-06-30 15:00:00 64.50 [in_i] Com [facility] weight 2023-06-30 15:00:00 238 [lb_av] Comm on [facility] bmi 2023-06-30 15:00:00 40.22 kg/m2 Comm on [facility] blood pressure systolic 2023-06-30 15:00:00 125 mm[Hg] [facility] blood pressure diastolic 2023-06-30 15:00:00 86 mm[Hg] Common [facility] height 2023-05-15 13:30:00 64.50 [in_i] Com [facility] weight 2023-05-15 13:30:00 238 [lb_av] Comm on [facility] temperature 2023-05-15 13:30:00 97.6 [degF] Com [facility] bmi 2023-05-15 13:30:00 40.22 kg/m2 Comm on [facility] blood pressure systolic 2023-05-15 13:30:00 128 mm[Hg] Common [facility] blood pressure diastolic 2023-05-15 13:30:00 74 mm[Hg] Common [facility] height 2023-04-21 10:40:00 64.50 [in_i] Com [facility] weight 2023-04-21 10:40:00 238 [lb_av] Comm on [facility] temperature 2023-04-21 10:40:00 97.1 [degF] Com [facility] bmi 2023-04-21 10:40:00 40.22 kg/m2 Comm on [facility] oximetry 2023-04-21 10:40:00 99 % [facility] respiratory rate 2023-04-21 10:40:00 17 /min [facility] blood pressure systolic 2023-04-21 10:40:00 126 mm[Hg] [facility] blood pressure diastolic 2023-04-21 10:40:00 70 mm[Hg] Common [facility] height 2023-04-21 10:40:00 64.50 [in_i] Com [facility] weight 2023-04-21 10:40:00 238 [lb_av] Comm on [facility] temperature 2023-04-21 10:40:00 97.1 [degF] Com [facility] bmi 2023-04-21 10:40:00 40.22 kg/m2 Comm on [facility] oximetry 2023-04-21 10:40:00 99 % [facility] respiratory rate 2023-04-21 10:40:00 17 /min [facility] blood pressure systolic 2023-04-21 10:40:00 126 mm[Hg] [facility] blood pressure diastolic 2023-04-21 10:40:00 70 mm[Hg] [facility] height 2023-02-07 14:00:00 64.50 [in_i] Com [facility] weight 2023-02-07 14:00:00 237 [lb_av] Comm on [facility] temperature 2023-02-07 14:00:00 97.1 [degF] Com [facility] bmi 2023-02-07 14:00:00 40.05 kg/m2 Comm on [facility] oximetry 2023-02-07 14:00:00 95 % [facility] respiratory rate 2023-02-07 14:00:00 16 /min [facility] blood pressure systolic 2023-02-07 14:00:00 134 mm[Hg] [facility] blood pressure diastolic 2023-02-07 14:00:00 68 mm[Hg] Common [facility] height 2023-01-08 13:00:00 64.50 [in_i] Com [facility] weight 2023-01-08 13:00:00 232 [lb_av] Comm on [facility] temperature 2023-01-08 13:00:00 97.8 [degF] Com mon [facility] bmi 2023-01-08 13:00:00 39.2 kg/m2 [facility] oximetry 2023-01-08 13:00:00 97 % [facility] respiratory rate 2023-01-08 13:00:00 16 /min [facility] blood pressure systolic 2023-01-08 13:00:00 137 mm[Hg] [facility] blood pressure diastolic 2023-01-08 13:00:00 57 mm[Hg] [facility] Systolic blood pressure 2022-11-12 16:26:00 120 mm[Hg] [facility] Diastolic blood pressure 2022-11-12 16:26:00 60 mm[Hg] [facility] Heart rate 2022-11-12 16:26:00 74 /min [facility] Body height 2022-11-12 16:26:00 162.6 cm [facility] Body weight 2022-11-12 16:26:00 109.09 kg [facility] BMI 2022-11-12 16:26:00 41.28 kg/m2 [facility] Oxygen saturation in Arterial blood by Pulse oximetry 2022-11-12 16:26:00 98 /min [facility] height 2022-07-10 14:00:00 64.50 [in_i] Com [facility] weight 2022-07-10 14:00:00 232 [lb_av] Comm on [facility] temperature 2022-07-10 14:00:00 97.1 [degF] Com [facility] bmi 2022-07-10 14:00:00 39.2 kg/m2 [facility] oximetry 2022-07-10 14:00:00 97 % [facility] respiratory rate 2022-07-10 14:00:00 17 /min [facility] blood pressure systolic 2022-07-10 14:00:00 136 mm[Hg] Common [facility] blood pressure diastolic 2022-07-10 14:00:00 72 mm[Hg] [facility] height 2022-07-10 14:40:00 64.50 [in_i] Com [facility] weight 2022-07-10 14:40:00 232 [lb_av] Comm on [facility] temperature 2022-07-10 14:40:00 97.1 [degF] Com [facility] bmi 2022-07-10 14:40:00 39.2 kg/m2 [facility] oximetry 2022-07-10 14:40:00 97 % [facility] respiratory rate 2022-07-10 14:40:00 17 /min [facility] blood pressure systolic 2022-07-10 14:40:00 136 mm[Hg] [facility] blood pressure diastolic 2022-07-10 14:40:00 72 mm[Hg] [facility] Systolic blood pressure 2022-05-14 18:45:00 135 mm[Hg] [facility] Diastolic blood pressure 2022-05-14 18:45:00 74 mm[Hg] [facility] Heart rate 2022-05-14 18:45:00 83 /min [facility] Respiratory rate 2022-05-14 18:45:00 18 /min [facility] Body height 2022-05-14 18:45:00 162.6 cm [facility] Body weight 2022-05-14 18:45:00 106.278 kg [facility] BMI 2022-05-14 18:45:00 40.22 kg/m2 [facility] height 2022-04-11 11:00:00 64.50 [in_i] Com [facility] weight 2022-04-11 11:00:00 230 [lb_av] Comm on [facility] bmi 2022-04-11 11:00:00 38.87 kg/m2 Comm on [facility] height 2022-02-14 15:00:00 64.50 [in_i] Com [facility] weight 2022-02-14 15:00:00 228.4 [lb_av] Co [facility] temperature 2022-02-14 15:00:00 97.3 [degF] Com [facility] bmi 2022-02-14 15:00:00 38.60 kg/m2 Comm on [facility] oximetry 2022-02-14 15:00:00 98 % Commo [facility] respiratory rate 2022-02-14 15:00:00 16 /min [facility] blood pressure systolic 2022-02-14 15:00:00 135 mm[Hg] [facility] blood pressure diastolic 2022-02-14 15:00:00 70 mm[Hg] [facility] height 2022-01-21 13:20:00 64.50 [in_i] Com [facility] weight 2022-01-21 13:20:00 230 [lb_av] Comm on [facility] bmi 2022-01-21 13:20:00 38.87 kg/m2 Comm on [facility] height 2021-11-15 15:40:00 64.50 [in_i] Com [facility] weight 2021-11-15 15:40:00 226.8 [lb_av] Co [facility] temperature 2021-11-15 15:40:00 97.2 [degF] Com [facility] bmi 2021-11-15 15:40:00 38.32 kg/m2 Comm on [facility] oximetry 2021-11-15 15:40:00 96 % Commo [facility] respiratory rate 2021-11-15 15:40:00 16 /min [facility] blood pressure systolic 2021-11-15 15:40:00 124 mm[Hg] Common [facility] blood pressure diastolic 2021-11-15 15:40:00 68 mm[Hg] Common [facility] Systolic blood pressure 2021-10-30 16:52:00 126 mm[Hg] [facility] Diastolic blood pressure 2021-10-30 16:52:00 79 mm[Hg] [facility] Heart rate 2021-10-30 16:52:00 74 /min [facility] Body weight 2021-10-30 16:52:00 105.597 kg [facility] BMI 2021-10-30 16:52:00 39.96 kg/m2 [facility] Oxygen saturation in Arterial blood by Pulse oximetry 2021-10-30 16:52:00 98 /min [facility] height 2021-10-18 15:40:00 64.50 [in_i] Com [facility] weight 2021-10-18 15:40:00 228.8 [lb_av] Co [facility] temperature 2021-10-18 15:40:00 97.4 [degF] Com [facility] bmi 2021-10-18 15:40:00 38.66 kg/m2 Comm on [facility] oximetry 2021-10-18 15:40:00 97 % Commo [facility] respiratory rate 2021-10-18 15:40:00 16 /min Common [facility] blood pressure systolic 2021-10-18 15:40:00 130 mm[Hg] Common [facility] blood pressure diastolic 2021-10-18 15:40:00 68 mm[Hg] Common [facility] height 2021-09-13 15:40:00 64.50 [in_i] Com [facility] weight 2021-09-13 15:40:00 231.6 [lb_av] Co [facility] temperature 2021-09-13 15:40:00 97.2 [degF] Com [facility] bmi 2021-09-13 15:40:00 39.14 kg/m2 Comm on [facility] oximetry 2021-09-13 15:40:00 96 % Commo n [facility] respiratory rate 2021-09-13 15:40:00 16 /min [facility] blood pressure systolic 2021-09-13 15:40:00 140 mm[Hg] [facility] blood pressure diastolic 2021-09-13 15:40:00 82 mm[Hg] Common [facility] height 2021-08-14 13:00:00 64.50 [in_i] Com [facility] weight 2021-08-14 13:00:00 231 [lb_av] Comm on [facility] temperature 2021-08-14 13:00:00 96.8 [degF] Com [facility] bmi 2021-08-14 13:00:00 39.03 kg/m2 Comm on [facility] oximetry 2021-08-14 13:00:00 98 % Commo n [facility] respiratory rate 2021-08-14 13:00:00 16 /min Common [facility] blood pressure systolic 2021-08-14 13:00:00 155 mm[Hg] Common [facility] blood pressure diastolic 2021-08-14 13:00:00 70 mm[Hg] Common [facility] height 2021-06-05 14:00:00 64.50 [in_i] Com [facility] weight 2021-06-05 14:00:00 233 [lb_av] Comm on [facility] temperature 2021-06-05 14:00:00 96.7 [degF] Com [facility] bmi 2021-06-05 14:00:00 39.37 kg/m2 Comm on [facility] blood pressure systolic 2021-06-05 14:00:00 146 mm[Hg] [facility] blood pressure diastolic 2021-06-05 14:00:00 84 mm[Hg] [facility] height 2021-05-11 13:20:00 64.50 [in_i] Com [facility] weight 2021-05-11 13:20:00 228.7 [lb_av] Co [facility] temperature 2021-05-11 13:20:00 97.8 [degF] Com [facility] bmi 2021-05-11 13:20:00 38.65 kg/m2 Comm on [facility] oximetry 2021-05-11 13:20:00 98 % Commo n [facility] respiratory rate 2021-05-11 13:20:00 18 /min [facility] blood pressure systolic 2021-05-11 13:20:00 139 mm[Hg] [facility] blood pressure diastolic 2021-05-11 13:20:00 67 mm[Hg] [facility] height 2021-05-11 14:00:00 64.50 [in_i] Com [facility] weight 2021-05-11 14:00:00 228.7 [facility]lb[facility]av[facility]-11 14:00:00 97.8 [degF] Com [facility] bmi 2021-05-11 14:00:00 38.65 kg/m2 Comm on [facility] blood pressure systolic 2021-05-11 14:00:00 139 mm[Hg] [facility] blood pressure diastolic 2021-05-11 14:00:00 67 mm[Hg] Common [facility] height 2021-04-02 15:20:00 64.50 [in_i] Com [facility] weight 2021-04-02 15:20:00 228 [lb_av] Comm on [facility] temperature 2021-04-02 15:20:00 96.9 [degF] Com [facility] bmi 2021-04-02 15:20:00 38.53 kg/m2 Comm on [facility] oximetry 2021-04-02 15:20:00 97 % Com[facility] respiratory rate 2021-04-02 15:20:00 19 /min Common [facility] blood pressure systolic 2021-04-02 15:20:00 138 mm[Hg] [facility] blood pressure diastolic 2021-04-02 15:20:00 65 mm[Hg] Common [facility] height 2020-12-22 10:00:00 64.50 [in_i] Com [facility] weight 2020-12-22 10:00:00 220 [lb_av] Comm on [facility] 2020-12-22 10:00:00 37.18 kg/m2 Comm on [facility] height 2020-12-13 12:20:00 64.50 [in_i] Com [facility] weight 2020-12-13 12:20:00 220 [lb_av] Comm on [facility] bmi 2020-12-13 12:20:00 37.18 kg/m2 Comm on [facility] Procedures Procedure Date / Time Performed Performing Clinician Source POCT HEMOGLOBIN A1C TEST 2024-01-13 19:08:00 Nahum Espana [facility] Repair of Umbilical Hernia 2024-01-01 00:00:00 [facility] ECG ROUTINE & RHYTHM STRIP 2023-09-03 19:26:09 Tiesha Frost [facility] CT ABDOMEN W WO CONTRAST 2023-07-12 17:16:59 Nahum Espana [facility] HB CREATININE SERUM/BLOOD FOR IMAGING 2023-07-12 16:14:00 Teresa Espana [facility] POCT HEMOGLOBIN A1C TEST 2023-07-08 20:35:00 Nahum Espana [facility] DIABETES TESTING REPORTS 2022-11-12 05:01:00 Doc tor Unassigned, [place] [facility] REFERRAL- REQUEST/RESPONSE 2022-05-14 06:01:00 D octor Unassigned, [place] [facility] EXTERNAL PROVIDER RECORDS 2021-11-26 05:01:00 Do ctor Unassigned, [place] [facility] Hysteroscopy 2018-03-10 00:00:00 [facility] Cholecystectomy (Gallbladder) 1996-03-10 00:00:00 [facility] Breast Reduction 1996-03-10 00:00:00 [facility] En[facility] Start Date/Time End Date/Time Encounter Type Admission Type Attending [facility] Care Department Encounter ID Source 2023-09-05 15:25:00 Outpatient Gonzalez, Chayo STLMLC ST[facility] [id number] [facility] 2023-07-30 13:58:00 Outpatient Gonzalez, Chayo STLMLC [facility] [id number] [facility] 2023-06-04 10:11:00 Outpatient Gonzalez Chayo STLMLC [facility] [id number] [facility] 2023-05-12 14:47:00 Outpatient Gonzalez, Chayo STLMLC [facility] [id number] [facility] 2023-05-05 15:12:00 Outpatient Gonzalez, Chayo STLMLC [facility] [id number] [facility] 2023-03-25 11:13:00 Outpatient Gonzalez, Chayo STLC STLC [id number] [facility] 2022-07-09 13:18:00 Outpatient Gonzalez, Chayo STLC STLC [id number] [facility] 2022-05-28 14:00:00 Outpatient GonzalezChayo STWOJCIECHLC STLMLC [id number] [facility] 2022-04-29 11:47:01 Outpatient GonzalezChayo STLMLC STLMLC [id number] [facility] 2022-04-11 11:02:01 Outpatient GonzalezChayo STLMLC STLMLC [id number] [facility] 2022-04-10 09:38:01 Outpatient GonzalezChayo STLMLC STLMLC [id number] [facility] 2022-04-04 15:02:00 Outpatient GonzalezChayo STLMLC STLMLC [id number] [facility] 2022-02-13 07:36:00 Outpatient Ruelas, Na STLMLC STLMLC [id number] [facility] 2022-01-17 11:35:01 Outpatient Ruelas, Na STLMLC STLMLC [id number] [facility] 2021-12-14 09:46:00 Outpatient Ruelas, Na STLMLC STLMLC [id number] [facility] 2021-10-16 15:14:01 Outpatient Ruelas, Na STLMLC STLMLC [id number] [facility] 2021-09-12 15:57:01 Outpatient Ruelas, Na STLMLC STLMLC [id number] [facility] 2021-09-11 10:21:01 Outpatient Ruelas, Na STLMLC STLMLC [id number] [facility] 2021-08-13 13:31:00 Outpatient Ruelas, Na STLMLC STLMLC [id number] [facility] 2021-05-18 11:01:01 Outpatient Ruelas, Na STLMLC STLMLC [id number] [facility] 2021-05-11 13:17:01 Outpatient Ruelas, Na STLMLC STLMLC [id number] [facility] 2021-05-10 09:35:00 Outpatient Ruelas, Na STLMLC STLMLC [id number] [facility] 2021-05-09 11:36:01 Outpatient Ruelas, Na STLMLC STLMLC [id number] [facility] 2021-04-10 14:01:01 Outpatient Ruelas, Na STLMLC STLMLC [id number] [facility] 2021-04-04 14:35:57 Outpatient Ruelas, Na STLMLC STLMLC [id number] [facility] 2021-04-04 14:32:10 Outpatient Ruelas, Na STLMLC STLMLC [id number] [facility] 2021-04-04 14:26:31 Outpatient Ruelas, Na STLMLC STLMLC [id number] [facility] 2021-04-04 14:22:06 Outpatient Ruelas, Na STLMLC STLMLC [id number] [facility] 2021-04-04 13:47:57 Outpatient Ruelas, Na STLMLC STLMLC [id number] [facility] 2021-04-04 13:31:15 Outpatient Ruelas, Na STLMLC STLMLC [id number] [facility] 2021-04-04 13:17:49 Outpatient Ruelas, Na STLMLC STLMLC [id number] [facility] 2021-04-04 13:15:11 Outpatient Ruelas, Na STLMLC STLMLC [id number] [facility] 2021-04-04 12:56:33 Outpatient Ruelas, Na STLMLC STLMLC [id number] [facility] 2021-04-04 12:51:32 Outpatient Ruelas, Na STLMLC STLMLC [id number] [facility] 2021-04-04 12:45:45 Outpatient Ruelas, Na STLMLC STLMLC [id number] [facility] 2021-04-04 12:44:50 Outpatient Ruelas, Na STLMLC STLMLC [id number] [facility] 2021-04-04 12:26:48 Outpatient Ruelas, Na STLMLC STLMLC [id number] [facility] 2021-04-04 12:25:49 Outpatient Ruelas, Na STLMLC STLMLC [id number] [facility] 2021-04-04 12:12:47 Outpatient Ruelas, Na STLMLC STLMLC [id number] [facility] 2021-04-04 12:03:01 Outpatient Ruelas, Na STLMLC STLMLC [id number] [facility] 2021-04-04 12:02:32 Outpatient Ruelas, Na STLMLC STLMLC [id number] [facility] 2021-04-04 11:46:04 Outpatient Ruelas, Na STLMLC STLMLC [id number] [facility] 2021-04-04 11:45:14 Outpatient Ruelas, Na STLMLC STLMLC [id number] [facility] 2021-04-04 11:44:02 Outpatient Ruelas, Na STLMLC STLMLC [id number] [facility] 2021-04-04 11:26:10 Outpatient Ruelas, Na STLMLC STLMLC [id number] [facility] 2021-04-04 11:25:37 Outpatient Ruelas, Na STLMLC STLMLC [id number] [facility] 2021-04-04 11:02:45 Outpatient Ruelas, Na STLMLC STLC [id number] [facility] 2020-04-11 11:00:00 Inpatient Luis Fong [facility] DA[facility] [id number] [facility] 2020-03-07 14:40:00 Inpatient Luis Fong [facility] DAYS [id number] [facility] 2024-01-22 00:00:00 2024-01-22 00:00:00 Katharina Call, COAL WASHER: [address], [address], [place] [address] , Ph. [facility] - GC[facility]GCBZW_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 Visit Lab, Navin - Teresa Farah Lab, Navin - Kal [facility] 1..840.114 350.1.13.10 4.2.7.2.686 [id number] [facility] 2024-01-13 13:00:00 2024-01-13 13:48:19 Outpatient R TERESA ESPANA [facility] [id number] [facility] 2024-01-13 13:00:00 2024-01-13 13:48:19 Office Visit Damon [facility] 1..840.114 350.1.13.10 4.2.7.2.686 [id number] [facility] 2023-12-27 00:00:00 2023-12-29 08:10:31 Refill Damon [facility] 1.2.840.114 350.1.13.10 4.2.7.2.686 [id number] [facility] 2023-12-25 00:00:00 2023-12-25 00:00:00 (TEL) STLMLC STLMLC [id number] [facility] 2023-12-16 00:00:00 2023-12-16 00:00:00 (INJ) Injection STLMLC STLMLC [id number] [facility] 2023-12-11 00:00:00 2023-12-15 10:50:[address] [facility] 1..840.114 350.1.13.10 4.2.7.2.686 [id number] [facility] 2023-12-05 00:00:00 2023-12-08 10:54:19 Refill Damon [facility] 1..840.114 350.1.13.10 4.2.7.2.686 [id number] [facility] 2023-10-31 00:00:00 2023-10-31 00:00:00 OFFICE VISIT ESTAB PT LEVEL 4 STLMLC STLMLC [id number] [facility] 2023-10-20 00:00:00 2023-10-23 10:02:33 Telephone [facility] 1..840.114 350.1.13.10 4.2.7.2.686 [id number] 220 [id number] [facility] 2023-10-09 00:00:00 2023-10-21 15:50:56 Refill Damon [facility] 1..840.114 350.1.13.10 4.2.7.2.686 [id number] [facility] 2023-10-21 00:00:00 2023-10-21 00:00:00 (TEL) STLMLC STLMLC [id number] [facility] 2023-10-20 00:00:00 2023-10-20 00:00:00 (TEL) STLMLC STLMLC [id number] [facility] 2023-10-08 00:00:00 2023-10-08 00:00:00 (TEL) STLMLC STLMLC [id number] [facility] 2023-10-06 00:00:00 2023-10-06 00:00:00 OFFICE VISIT ESTAB PT LEVEL 3 STLMLC STLMLC [id number] [facility] 2023-09-11 00:00:00 2023-09-18 10:53:19 Patient Secure Msg Slade [facility] 1..840.114 350.1.13.10 4.2.7.2.686 [id number] [facility] 2023-09-03 14:00:00 2023-09-03 15:17:18 Outpatient R SLADE [facility] [id number] [facility] 2023-09-03 14:00:00 2023-09-03 15:17:18 Office Visit Slade [facility] 1..840.114 350.1.13.10 4.2.7.2.686 [id number] [facility] 2023-08-26 12:00:00 2023-08-26 12:00:00 Outpatient R TERESA ESPANA [facility] [id number] [facility] 2023-07-11 00:00:00 2023-08-16 18:04:46 Patient Secure Msg Doctor Unassigned, [place] [facility] 1..840.114 350.1.13.10 4.2.7.2.686 [id number] [facility] 2023-07-31 00:00:00 2023-07-31 00:00:00 (TEL) STLMLC STLMLC [id number] [facility] 2023-07-30 00:00:00 2023-07-30 00:00:00 OFFICE VISIT ESTAB PT LEVEL 4 STLMLC STLMLC [id number] [facility] 2023-07-30 00:00:00 2023-07-30 00:00:00 (TEL) STLMLC STLMLC [id number] [facility] 2023-07-30 00:00:00 2023-07-30 00:00:00 (TEL) STLMLC STLMLC [id number] [facility] 2023-07-29 12:00:00 2023-07-29 12:15:00 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 Visit Lab, Navin [place] [facility] 1.2.840.114 350.1.13.10 4.2.7.2.686 [id number] [facility] 2023-07-29 12:00:00 2023-07-29 11:01:43 Outpatient R DAMON [facility] [id number] [facility] 2023-07-23 00:00:00 2023-07-24 12:12:21 Telephone Damon [facility] 1.2.840.114 350.1.13.10 4.2.7.2.686 [id number] [facility] 2023-07-17 12:45:00 2023-07-17 13:00:00 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 Visit Lab, Navin [place] [facility] 1.2.840.114 350.1.13.10 4.2.7.2.686 [id number] [facility] 2023-07-17 12:45:00 2023-07-17 12:45:00 Outpatient R DAMON [facility] [id number] [facility] 2023-07-14 00:00:00 2023-07-14 00:00:00 (TEL) STLMLC STLMLC [id number] [facility] 2023-07-12 10:40:02 2023-07-12 23:59:00 Outpatient R DAMON [facility] [id number] [facility] 2023-07-12 10:40:02 2023-07-12 23:59:00 Hospital Encounter Damon [facility] 1.2.840.114 350.1.13.10 4.2.7.2.686 [id number] [facility] 2023-07-08 11:30:00 2023-07-08 12:29:51 Outpatient R DAMON [facility] [id number] [facility] 2023-07-08 11:30:00 2023-07-08 12:29:51 Office Visit Damon [facility] 1.2.840.114 350.1.13.10 4.2.7.2.686 [id number] [facility] 2023-07-07 00:00:00 2023-07-07 00:00:00 (TEL) STLMLC STLMLC [id number] [facility] 2023-06-30 00:00:00 2023-06-30 00:00:00 (F/U) Follow Up Visit STLMLC STLMLC [id number] [facility] 2023-06-13 16:30:00 2023-06-13 16:30:00 Outpatient R SAFIA HOGAN [facility] [id number] [facility] 2023-06-03 00:00:00 2023-06-03 00:00:00 (TEL) STLMLC STLMLC [id number] [facility] 2023-05-27 00:00:00 2023-05-27 00:00:00 (TEL) STLMLC STLMLC [id number] [facility] 2023-05-16 00:00:00 2023-05-16 00:00:00 (TEL) STLMLC STLMLC [id number] [facility] 2023-05-15 00:00:00 2023-05-15 00:00:00 (CREPE SOLE SCOURER) New Patient STLMLC STLMLC [id number] [facility] 2023-05-07 00:00:00 2023-05-07 00:00:00 (TEL) STLMLC STLMLC [id number] [facility] 2023-05-02 00:00:00 2023-05-02 00:00:00 (TEL) STLMLC STLMLC [id number] [facility] 2023-04-30 00:00:00 2023-04-30 00:00:00 (TEL) STLMLC STLMLC [id number] [facility] 2023-04-21 00:00:00 2023-04-21 00:00:00 OFFICE VISIT ESTAB PT LEVEL 4 STLMLC STLMLC [id number] [facility] 2023-04-21 00:00:00 2023-04-21 00:00:00 [facility] WELL[facility] V[facility] STLMLC STLMLC [id number] [facility] 2023-04-18 00:00:00 2023-04-18 00:00:00 Outpatient GC_GCBZW_Ka nehemiah_S [facility] [id number] [facility] 2023-04-16 00:00:00 2023-04-16 00:00:00 Refill Damon [facility] 1.2.840.114 350.1.13.10 4.2.7.2.686 [id number] [facility] 2023-04-09 00:00:00 2023-04-09 00:00:00 Telephone Damon [facility] 1.2.840.114 350.1.13.10 4.2.7.2.686 [id number] [facility] 2023-04-03 00:00:00 2023-04-03 00:00:00 (TEL) STLMLC STLMLC [id number] [facility] 2023-03-23 00:00:00 2023-03-23 00:00:00 (WEB) STLMLC STLMLC [id number] [facility] 2023-03-21 00:00:00 2023-03-21 00:00:00 (TEL) STLMLC STLMLC [id number] [facility] 2023-03-18 13:30:00 2023-03-18 13:30:00 Outpatient R TERESA ESPANA [facility] [id number] [facility] 2023-03-04 00:00:00 2023-03-04 00:00:00 (TEL) STLMLC STLMLC [id number] [facility] 2023-02-19 00:00:00 2023-02-19 00:00:00 Refill Teresa Espana [facility] 1.2.840.114 350.1.13.10 4.2.7.2.686 [id number] [facility] 2023-02-07 00:00:00 2023-02-07 00:00:00 OFFICE VISIT ESTAB PT LEVEL 4 STLMLC STLMLC [id number] [facility] 2023-01-30 00:00:00 2023-01-30 00:00:00 Refill Teresa Espana [facility] 1.2.840.114 350.1.13.10 4.2.7.2.686 [id number] [facility] 2023-01-08 00:00:00 2023-01-08 00:00:00 OFFICE VISIT ESTAB PT LEVEL 4 STLMLC STLMLC [id number] [facility] 2023-01-06 00:00:00 2023-01-06 00:00:00 (TEL) [facility] [id number] [facility] 2022-12-23 00:00:00 2022-12-23 00:00:00 Refill Damon [facility] 1.2.840.114 350.1.13.10 4.2.7.2.686 [id number] [facility] 2022-12-23 00:00:00 2022-12-23 00:00:00 [facility]TEL[facility] [id number] [facility] 2022-11-22 00:00:00 2022-11-22 00:00:00 Outpatient GC_GCBZW_Ka diyala_S PRIV PRIV [id number] [facility] 2022-11-15 00:00:00 2022-11-15 00:00:00 Outpatient GC_GCBZW_Ka diyala_S PRIV PRIV [id number] [facility] 2022-11-14 00:00:00 2022-11-14 00:00:00 (TEL) [facility] [id number] [facility] 2022-11-12 11:30:00 2022-11-12 15:15:39 Outpatient R DAMON [facility] [id number] [facility] 2022-11-12 11:30:00 2022-11-12 15:15:39 Office Visit Damon [facility] 1.2.840.114 350.1.13.10 4.2.7.2.686 [id number] [facility] 2022-11-12 00:00:00 2022-11-12 00:00:00 Outpatient GC_GCBZW_Ka diyala_S PRIV PRIV [id number] [facility] 2022-11-12 00:00:00 2022-11-12 00:00:00 Orders Only Doctor Unassigned, [place] [facility] 1.2.840.114 350.1.13.10 4.2.7.2.686 [id number] [facility] 2022-11-08 00:00:00 2022-11-08 00:00:00 Outpatient GC_GCBZW_Ka diyala_S [facility] [id number] [facility] 2022-11-08 00:00:00 2022-11-08 00:00:00 (TEL) STLMLC STLMLC [id number] [facility] 2022-10-14 00:00:00 2022-10-14 00:00:00 (TEL) STLMLC STLMLC [id number] [facility] 2022-09-02 00:00:00 2022-09-02 00:00:00 (TEL) STLMLC STLMLC [id number] [facility] 2022-07-29 00:00:00 2022-07-29 00:00:00 Patient Secure Msg Doctor Unassigned, [place] [facility] 1.2.840.114 350.1.13.10 4.2.7.2.686 [id number] [facility] 2022-07-16 00:00:00 2022-07-16 00:00:00 (TEL) STLMLC STLMLC [id number] [facility] 2022-07-10 00:00:00 2022-07-10 00:00:00 OFFICE VISIT ESTAB PT LEVEL 4 STLMLC STLMLC [id number] [facility] 2022-07-10 00:00:00 2022-07-10 00:00:00 SUB ANNUAL [facility] WELLNESS VISIT STLMLC STLMLC [id number] [facility] 2022-05-28 00:00:00 2022-05-28 00:00:00 (TEL) STLMLC STLMLC [id number] [facility] 2022-05-16 15:30:00 2022-05-16 15:45:00 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 Visit Lab, Navin Mary Bowden Damon [facility] 1..840.114 350.1.13.10 4.2.7.2.686 [id number] [facility] 2022-05-16 15:30:00 2022-05-16 15:30:00 Outpatient R ESPANA [facility] [id number] [facility] 2022-05-15 00:00:00 2022-05-15 00:00:00 (TEL) STLMLC STLC [id number] [facility] 2022-05-14 13:45:00 2022-05-14 14:00:00 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 Visit Lab, Navin Bowden Damon [facility] 1.840.114 350.1.13.10 4.2.7.2.686 [id number] [facility] 2022-05-14 13:00:00 2022-05-14 13:39:09 Outpatient R DAMON [facility] [id number] [facility] 2022-05-14 13:00:00 2022-05-14 13:39:09 Office Visit Damon [facility] 1..840.114 350.1.13.10 4.2.7.2.686 [id number] [facility] 2022-05-14 00:00:00 2022-05-14 00:00:00 Telephone [facility] 1..840.114 350.1.13.10 4.2.7.2.686 [id number] 220 [id number] [facility] 2022-05-14 00:00:00 2022-05-14 00:00:00 Orders Only Doctor Unassigned, [place] [facility] 1.2840.114 350.1.13.10 4.2.7.2.686 [id number] [facility] 2022-04-25 00:00:00 2022-04-25 00:00:00 (TEL) STLMLC STLMLC [id number] [facility] 2022-04-22 00:00:00 2022-04-22 00:00:00 (TEL) STLMLC STLMLC [id number] [facility] 2022-04-11 00:00:00 2022-04-11 00:00:00 OFFICE VISIT ESTAB PT LEVEL 4 STLMLC STLMLC [id number] [facility] 2022-04-09 11:30:00 2022-04-09 11:30:00 Outpatient R DAMON [facility] [id number] [facility] 2022-04-08 00:00:00 2022-04-08 00:00:00 Telephone [facility] 1.840.114 350.1.13.10 4.2.7.2.686 [id number] 220 [id number] [facility] 2022-03-27 00:00:00 2022-03-27 00:00:00 Refill [facility] 1.2.840.114 350.1.13.10 4.2.7.2.686 [id number] [facility] 2022-03-20 00:00:00 2022-03-20 00:00:00 Refill [facility] 1.2.840.114 350.1.13.10 4.2.7.2.686 [id number] [facility] 2022-03-17 00:00:00 2022-03-17 00:00:00 Refill Damon [facility] 1.2.840.114 350.1.13.10 4.2.7.2.686 [id number] [facility] 2022-03-08 00:00:00 2022-03-08 00:00:00 [facility] 1..840.114 350.1.13.10 4.2.7.2.686 [id number] [facility] 2022-02-20 00:00:00 2022-02-20 00:00:00 (TEL) STLMLC STLMLC [id number] [facility] 2022-02-14 00:00:00 2022-02-14 00:00:00 OFFICE VISIT EST PT LEVEL 3 STLMLC STLMLC [id number] [facility] 2022-01-27 00:00:00 2022-01-27 00:00:00 (WEB) STLMLC STLMLC [id number] [facility] 2022-01-25 00:00:00 2022-01-25 00:00:00 [facility] [place] [facility] 1..840.114 350.1.13.10 4.2.7.2.686 [id number] [facility] 2022-01-24 00:00:00 2022-01-24 00:00:00 (WEB) STLMLC STLMLC [id number] [facility] 2022-01-21 00:00:00 2022-01-21 00:00:00 OL DIG E/M SVC 11-20 MIN STLMLC STLMLC [id number] [facility] 2022-01-09 00:00:00 2022-01-09 00:00:00 (TEL) STLMLC STLMLC [id number] [facility] 2021-12-20 00:00:00 2021-12-20 00:00:00 (WEB) STLMLC STLMLC [id number] [facility] 2021-11-26 00:00:00 2021-11-26 00:00:00 Orders Only Doctor Unassigned, [place] [facility] 1.2.840.114 350.1.13.10 4.2.7.2.686 [id number] [facility] 2021-11-15 00:00:00 2021-11-15 00:00:00 OFFICE VISIT EST PT LEVEL 3 STLMLC STLMLC [id number] [facility] 2021-10-30 12:00:00 2021-10-30 12:53:55 Outpatient R DAMON [facility] [id number] [facility] 2021-10-30 12:00:00 2021-10-30 12:53:55 [facility] 1.2.840.114 350.1.13.10 4.2.7.2.686 [id number] [facility] 2021-10-23 00:00:00 2021-10-23 00:00:00 (TEL) STLMLC STLMLC [id number] [facility] 2021-10-20 00:00:00 2021-10-20 00:00:00 (TEL) STLMLC STLMLC [id number] [facility] 2021-10-18 00:00:00 2021-10-18 00:00:00 OFFICE VISIT EST PT LEVEL 3 STLMLC STLMLC [id number] [facility] 2021-09-13 00:00:00 2021-09-13 00:00:00 OFFICE VISIT EST PT LEVEL 3 STLMLC STLMLC [id number] [facility] 2021-08-31 00:00:00 2021-08-31 00:00:00 (TEL) STLMLC STLMLC [id number] [facility] 2021-08-14 00:00:00 2021-08-14 00:00:00 OFFICE VISIT EST PT LEVEL 3 STLMLC STLMLC [id number] [facility] 2021-08-10 00:00:00 2021-08-10 00:00:00 Patient Secure Msg Damon [facility] 1.2.840.114 350.1.13.10 4.2.7.2.686 [id number] [facility] 2021-08-08 00:00:00 2021-08-08 00:00:00 (TEL) STLMLC STLMLC [id number] [facility] 2021-08-03 00:00:00 2021-08-03 00:00:00 (TEL) STLMLC STLMLC [id number] [facility] 2021-06-05 00:00:00 2021-06-05 00:00:00 OFFICE VISIT NEW PT LEVEL 4 STLMLC STLMLC [id number] [facility] 2021-05-30 00:00:00 2021-05-30 00:00:00 (TEL) STLMLC STLMLC [id number] [facility] 2021-05-21 14:28:47 2021-05-21 23:59:00 Outpatient R DAMON [facility] [id number] [facility] 2021-05-21 14:00:00 2021-05-21 23:59:00 [facility] 1..840.114 350.1.13.10 4.2.7.2.686 [id number] [facility] 2021-05-14 00:00:00 2021-05-14 00:00:00 [id number] [facility] 2021-05-11 00:00:00 2021-05-11 00:00:00 SUB ANNUAL MCR WELLNESS VISIT STLMLC STLMLC [id number] [facility] 2021-05-11 00:00:00 2021-05-11 00:00:00 OFFICE VISIT EST PT LEVEL 3 STLMLC STLMLC [id number] [facility] 2021-05-10 00:00:00 2021-05-10 00:00:00 (TEL) STLMLC STLMLC [id number] [facility] 2021-05-07 14:30:00 2021-05-07 14:30:00 Outpatient Sergio ESPANA [facility] [id number] [facility] 2021-05-01 11:30:00 2021-05-01 12:27:00 Outpatient R DAMON [facility] [id number] [facility] 2021-04-24 10:30:00 2021-04-24 11:00:[address] [facility] HIGINIO?[facility] [id number] [facility] 2021-04-24 10:30:00 2021-04-24 10:30:00 Outpatient R DAMON [facility] [id number] [facility] 2021-04-09 00:00:00 2021-04-09 00:00:00 (TEL) STLMLC STLMLC [id number] [facility] 2021-04-02 00:00:00 2021-04-02 00:00:00 OFFICE VISIT EST PT LEVEL 3 STLMLC STLMLC [id number] [facility] 2021-03-15 00:00:00 2021-03-15 00:00:00 (TEL) STLMLC STLMLC [id number] [facility] 2021-03-15 00:00:00 2021-03-15 00:00:00 (TEL) STLMLC STLMLC [id number] [facility] 2021-02-14 00:00:00 2021-02-14 00:00:00 (TEL) STLMLC STLMLC [id number] [facility] 2021-02-06 00:00:00 2021-02-06 00:00:00 (TEL) STLMLC STLMLC [id number] [facility] 2021-01-10 00:00:00 2021-01-10 00:00:00 OL DIG E/M SVC 11-20 MIN STLMLC STLMLC [id number] [facility] 2021-01-01 00:00:00 2021-01-01 00:00:00 (INJ) Injection STLMLC STLMLC [id number] [facility] 2021-01-01 00:00:00 2021-01-01 00:00:00 (TEL) STLMLC STLMLC [id number] [facility] 2020-12-27 00:00:00 2020-12-27 00:00:00 (TEL) STLMLC STLMLC [id number] [facility] 2020-12-22 00:00:00 2020-12-22 00:00:00 OFFICE VISIT EST PT LEVEL 3 [facility]LMLC STLMLC [id number] [facility] 2020-12-22 00:00:00 2020-12-22 00:00:00 (TEL) STLMLC STLMLC [id number] [facility] 2020-12-22 00:00:00 2020-12-22 00:00:00 (TEL) STLMLC STLMLC [id number] [facility] 2020-12-13 00:00:00 2020-12-13 00:00:00 OFFICE VISIT ESTAB PT LEVEL 3 [facility]LMLC STLMLC [id number] [facility] 2020-12-01 00:00:00 2020-12-01 00:00:00 (TEL) STLMLC STLMLC [id number] [facility] 2020-10-24 00:00:00 2020-10-24 00:00:00 Outpatient [facility]LMLC STLMLC [id number] [facility] 2020-08-02 00:00:00 2020-08-02 00:00:00 Outpatient [facility]LMLC [facility]LMLC [id number] [facility] 2020-07-05 00:00:00 2020-07-05 00:00:00 Outpatient [facility]LMLC STLMLC [id number] [facility] 2020-06-20 00:00:00 2020-06-20 00:00:00 Outpatient STLMLC STLMLC [id number] [facility] 2020-06-20 00:00:00 2020-06-20 00:00:00 Outpatient [facility]LMLC STLMLC [id number] [facility] 2020-06-15 00:00:00 2020-06-15 00:00:00 Outpatient STLMLC STLMLC [id number] [facility] 2020-06-06 00:00:00 2020-06-06 00:00:00 Outpatient STLMLC STLMLC [id number] [facility] 2020-06-05 00:00:00 2020-06-05 00:00:00 Outpatient STLMLC STLMLC [id number] [facility] 2020-05-29 00:00:00 2020-05-29 00:00:00 Outpatient STLMLC STLMLC [id number] [facility] 2020-05-09 00:00:00 2020-05-09 00:00:00 Outpatient STLMLC STLMLC [id number] [facility] 2020-05-05 00:00:00 2020-05-05 00:00:00 Outpatient STLMLC STLMLC [id number] [facility] 2020-04-19 00:00:00 2020-04-19 00:00:00 Outpatient STLMLC STLMLC [id number] [facility] 2020-04-07 00:00:00 2020-04-07 00:00:00 Outpatient STLMLC STLMLC [id number] [facility] 2020-03-28 00:00:00 2020-03-28 00:00:00 Outpatient STLMLC STLMLC [id number] [facility] 2020-02-24 00:00:00 2020-02-24 00:00:00 Outpatient [facility] STLMLC [id number] [facility] 2020-02-22 00:00:00 2020-02-22 00:00:00 Outpatient STLMLC STLMLC [id number] [facility] 2020-01-14 00:00:00 2020-01-14 00:00:00 Outpatient STLMLC STLMLC [id number] [facility] 2019-11-23 11:00:00 2019-11-23 11:00:00 [facility] [id number] [facility] 2019-11-16 09:52:00 2019-11-16 09:52:00 [facility] [id number] [facility] 2019-08-30 08:49:00 2019-08-30 08:49:[address] [facility] [facility] [id number] [facility] 2019-08-18 09:40:00 2019-08-18 09:40:00 [facility] [id number] [facility] 2019-08-10 14:31:00 2019-08-10 14:31:00 [facility] [id number] [facility] 2019-08-07 07:31:00 2019-08-07 07:31:00 [facility] [id number] [facility] 2019-08-06 09:20:00 2019-08-06 09:20:00 [facility] [id number] [facility] 2019-04-30 16:02:00 2019-04-30 16:02:00 [facility] [id number] [facility] 2019-04-15 10:26:00 2019-04-15 10:26:00 [facility] [id number] [facility] 2019-04-12 09:27:00 2019-04-12 09:27:[address] [facility] [id number] [facility] 2019-04-02 08:40:00 2019-04-02 08:40:00 Outpatient [facility] [id number] [facility] 2019-04-01 11:20:00 2019-04-01 11:20:00 Outpatient [facility] [id number] [facility] Results Test Description Test Time Test Comments Results Result Co mments Source [facility] W/AUTO [id number] 00:00:00* Test Item Value Reference Range Interpretation Comme nts NUCLEATED RBCS (test code = 77768-7) 0.0 /100 WBC'S See_Comment [Automated messa ge] The system which generated this result transmitted reference range: 0.0 /100 WBC'S. The reference range was not used to interpret this result as normal/abnormal. ABSOLUTE EOSINOPHILS (test code = 39845-6) 0.21 K/UL See_Comment [Automated messa ge] The system which generated this result transmitted reference range: 0.00-0.50 K/UL. The reference range was not used to interpret this result as normal/abnormal. ABSOLUTE LYMPHOCYTES (test code = 52967-9) 1.70 K/UL See_Comment [Automated messa ge] The system which generated this result transmitted reference range: 1.00-4.00 K/UL. The reference range was not used to interpret this result as normal/abnormal. ABSOLUTE MONOCYTES (test code = 42719-1) 0.45 K/UL See_Comment [Automated messa ge] The system which generated this result transmitted reference range: 0.20-1.00 K/UL. The reference range was not used to interpret this result as normal/abnormal. ABSOLUTE NEUTROPHILS (test code = 87358-5) 5.42 K/UL See_Comment [Automated messa ge] The system which generated this result transmitted reference range: 1.50-7.50 K/UL. The reference range was not used to interpret this result as normal/abnormal. BASOPHILS (test code = 12327-1) 0.6 % EOSINOPHILS (test code = 47340-3) 2.7 % HEMATOCRIT (test code = 05207-0) 39.2 % See_Comment [Automated messa ge] The system which generated this result transmitted reference range: 34.0-45.0 %. The reference range was not used to interpret this result as normal/abnormal. HEMOGLOBIN (test code = 718-7) 12.7 G/DL See_Comment [Automated messa ge] The system which generated this result transmitted reference range: 11.5-15.5 G/DL. The reference range was not used to interpret this result as normal/abnormal. LYMPHOCYTES (test code = 14240-2) 21.7 % MCH (test code = 59997-3) 30.0 PG See_Comment [Automated messa ge] The system which generated this result transmitted reference range: 25.0-33.0 PG. The reference range was not used to interpret this result as normal/abnormal. MCHC (test code = 56236-9) 32.4 G/DL See_Comment [Automated messa ge] The system which generated this result transmitted reference range: 31.0-36.0 G/DL. The reference range was not used to interpret this result as normal/abnormal. MCV (test code = 91290-5) 92.7 fL See_Comment [Automated messa ge] The system which generated this result transmitted reference range: 80.0-99.0 fL. The reference range was not used to interpret this result as normal/abnormal. MONOCYTES (test code = 99023-2) 5.7 % NEUTROPHILS (test code = 03480-6) 69.0 % PLATELET COUNT (test code = 88668-5) 259 K/UL See_Comment [Automated messa ge] The system which generated this result transmitted reference range: 130-400 K/UL. The reference range was not used to interpret this result as normal/abnormal. RBC (test code = 29509-5) 4.23 M/UL See_Comment [[employer]] The system which generated this result transmitted reference range: 3.80-5.40 M/UL. The reference range was not used to interpret this result as normal/abnormal. RDW (test code = 68084-8) 14.0 % See_Comment [[employer]] The system which generated this result transmitted reference range: 11.5-15.0 %. The reference range was not used to interpret this result as normal/abnormal. WBC (test code = 99262-7) 7.9 K/UL See_Comment [[employer]] The system which generated this result transmitted reference range: 3.5-11.0 K/UL. The reference range was not used to interpret this result as normal/abnormal. CT ABDOMEN W WO [id number] 18:42:07ORDERING PHYSICIAN: TERESA ESPANA CLINICAL HISTORY: Adrenal mass, > 2 to < 4cm, no history of malignancyPlease do Calculate Contrast washout values at 60 seconds and in 10-15minutes TECHNIQUE: CTabdomen was performed before and following administration ofintravenous contrast. CT scan was done according to ALARA (As Low asReasonably Achievable). TECHNICAL QUALITY: Diagnostic COMPARISON: 05/21/2021 FINDINGS: The lung bases are clear. The liver is normal in appearance. The gallbladder has beenremoved. The spleen is normal in appearance. The pancreas is normal in appearance. There is no peripancreaticinflammation. There is a right adrenal gland nodule measuring approximately 2.4 x 2.1 cm,9Hounsfield units precontrast, 55 Hounsfield units post contrast and 18Hounsfield units on the delayed imaging. Absolute washout is 80 percent.This is consistent with a adenoma. There is a left adrenal gland nodule measuring approximately 10 x 11 mm, 10Hounsfield units precontrast, 43 Hounsfield units postcontrast and 24Hounsfield units on the delayed. Absolute washout phase approximately 60percent. This is consistent with an adenoma. The kidneys are symmetric in size and enhancement. There is no hydronephrosis. There are hypodensities in both kidneys, toosmall to characterize but most likely r epresenting benign cysts. The abdominal aorta is atherosclerotic. The bowel is normal in caliber. The appendix is visualized and normal inappearance. The bladder is distended. The uterus is present. The ovaries are normal in size. There is no freefluid in the pelvis. There is no compression fracture.[facility] [id number] 16:47:14* Test Item Value Reference Range Interpretation Comme [facility] POCT Creatinine (test code = 4691299626) 0.6 mg/dL 0.5-1.1 Lab Interpretation (test cod e = 49368-6) Normal [facility] Hemoglobin A1C [id number] 20:35:00* Test Item Value Reference Range Interpretation Comme [facility] POCT HBA1C (test code = 4548-4) 7.9 % 4-6 A Lab Interpretation (test cod e = 34235-2) Abnormal [facility] Hemoglobin A1C [id number] 20:35:00* Test Item Value Reference Range Interpretation Comme [facility] POCT HBA1C (test code = 4548-4) 7.9 % 4-6 A Lab Interpretation (test cod e = 82343-0) [facility] [id number] 00:00:00* Test Item Value Reference Range Interpretation Comme [facility] A1C (test code = 4548-4) 9.1 CBC W/AUTO [id number] 00:00:00* Test Item Value Reference Range Interpretation Comme [facility] NUCLEATED RBCS (test code = 31418-8) 0.0 /100 WBC'S See_Comment [Automated messa ge] The system which generated this result transmitted reference range: 0.0 /100 WBC'S. The reference range was not used to interpret this result as normal/abnormal. ABSOLUTE EOSINOPHILS (test code = 58201-1) 0.11 K/UL See_Comment [Automated messa ge] The system which generated this result transmitted reference range: 0.00-0.50 K/UL. The reference range was not used to interpret this result as normal/abnormal. ABSOLUTE LYMPHOCYTES (test code = 79635-2) 1.65 K/UL See_Comment [Automated [employer] [facility]] The system which generated this result transmitted reference range: 1.00-4.00 K/UL. The reference range was not used to interpret this result as normal/abnormal. ABSOLUTE MONOCYTES (test code = 28720-5) 0.47 K/UL See_Comment [Automated messa ge] The system which generated this result transmitted reference range: 0.20-1.00 K/UL. The reference range was not used to interpret this result as normal/abnormal. ABSOLUTE NEUTROPHILS (test code = 72223-5) 4.11 K/UL See_Comment [Automated messa ge] The system which generated this result transmitted reference range: 1.50-7.50 K/UL. The reference range was not used to interpret this result as normal/abnormal. BASOPHILS (test code = 43947-0) 0.6 % EOSINOPHILS (test code = 23400-8) 1.7 % HEMATOCRIT (test code = 12832-3) 37.9 % See_Comment [Automated messa ge] The system which generated this result transmitted reference range: 34.0-45.0 %. The reference range was not used to interpret this result as normal/abnormal. HEMOGLOBIN (test code = 718-7) 13.2 G/DL See_Comment [Automated messa ge] The system which generated this result transmitted reference range: 11.5-15.5 G/DL. The reference range was not used to interpret this result as normal/abnormal. LYMPHOCYTES (test code = 31561-7) 25.8 % MCH (test code = 43966-4) 31.1 PG See_Comment [Automated messa ge] The system which generated this result transmitted reference range: 25.0-33.0 PG. The reference range was not used to interpret this result as normal/abnormal. MCHC (test code = 53836-6) 34.8 G/DL See_Comment [Automated messa ge] The system which generated this result transmitted reference range: 31.0-36.0 G/DL. The reference range was not used to interpret this result as normal/abnormal. MCV (test code = 51457-9) 89.2 fL See_Comment [Automated messa ge] The system which generated this result transmitted reference range: 80.0-99.0 fL. The reference range was not used to interpret this result as normal/abnormal. MONOCYTES (test code = 41737-3) 7.3 % NEUTROPHILS (test code = 36194-7) 64.3 % PLATELET COUNT (test code = 05972-4) 230 K/UL See_Comment [Automated messa ge] The system which generated this result transmitted reference range: 130-400 K/UL. The reference range was not used to interpret this result as normal/abnormal. RBC (test code = 46918-1) 4.25 M/UL See_Comment [Automated messa ge] The system which generated this result transmitted reference range: 3.80-5.40 M/UL. The reference range was not used to interpret this result as normal/abnormal. RDW (test code = 55953-6) 13.4 % See_Comment [Automated [employer]] The system which generated this result transmitted reference range: 11.5-15.0 %. The reference range was not used to interpret this result as normal/abnormal. WBC (test code = 90834-4) 6.4 K/UL See_Comment [Automated messa ge] The system which generated this result transmitted reference range: 3.5-11.0 K/UL. The reference range was not used to interpret this result as normal/abnormal. Lipid Panel w/ Chol/HDL [id number] 00:00:00* Test Item Value Reference Range Interpretation Comme nts Cholesterol, Total (test code = 2093-3) 128 mg/dL See_Comment [Automated message] The system which generated this result transmitted reference range: 100-199 mg/dL. The reference range was not used to interpret this result as normal/abnormal. Triglycerides (test code = 2571-8) 159 mg/dL See_Comment H [Automated messa ge] The system which generated this result transmitted reference range: 0-149 mg/dL. The reference range was not used to interpret this result as normal/abnormal. HDL Cholesterol (test code = 2085-9) 42 mg/dL See_Comment [Automated messa ge] The system which generated this result transmitted reference range: >39 mg/dL. The reference range was not used to interpret this result as normal/abnormal. T. Chol/HDL Ratio (test code = 9830-1) 3.0 ratio See_Comment [Automated [employer] ge] The system which generated this result transmitted reference range: 0.0-4.4 ratio. The reference range was not used to interpret this result as normal/abnormal. Microalbumin/Creat Ratio, Random [id number] 00:00:00* Test Item Value Reference Range Interpretation Comme nts Creatinine, Urine (test code = 2161-8) 168.8 mg/dL Not Estab. mg/dL Albumin, Urine (test code = 11275-0) 516.8 ug/mL Not Estab. ug/mL Alb/Creat Ratio (test code = 18504-8) 306 mg/g creat See_Comment H [Automated [employer] [facility]] The system which generated this result transmitted reference range: 0-29 mg/g creat. The reference range was not used to interpret this result as normal/abnormal. - XR FLUORO FOR SPINE [id number] 14:34:00 [facility] BALTAZAR JOSÉMATT HOLL[place] : 1965 Sex: F FAX: Luis Eisenberg MD [phone] [place]: C St: REG Patient Name: BRANDEE JOSÉ BUNNY Unit No: [id number] EXAMS: CPT CODE: [id number] XR FLUORO FOR SPINE INJ 77856 Location: T 18 INDICATION: ONELIA IMPRESSION: 12 [...] By: [email or web address] Orig Print D/T: S: 04/11/2020 (6777) JAY Hardwick NAME: ARNAVBRANDEE BUNNY [facility] PHYS: Luis Mora MD [address] [place] [address] BLVD : 1965 AGE: 54 SEX: F KAMILA, SARAH [address] LOC: SHADI PHONE #: [phone] EXAM DATE: 04/11/2020 STATUS: REG SD FAX #: [phone] RAD NO: DC Dt: PAGE 1 Signed ReportGLUCOSE BEDSIDE [id number] 11:35:00* Test Item Value Reference Range Interpretation Comme nts GLUCOSE BEDSIDE TESTING (isrrael t code = GLUBED) 189 MG/DL 70-119 H COVID Asymptomatic IH [id number] 12:52:00* Test Item Value Reference Range Interpretation Comments COVID Asymptomatic IH NTX (test code = COVNONPUINTX) Negative Negative A negative resul t does not preclude the SARS-COV-2 viralinfection and should not be used as the sole basis forpatient management decisions. Negative results must becombined with clinical observations, patient history, andepidemiological information. Viral levels in clinicalsamples below the detection limit of the assay could lead tonegative results. This test was performed using the [employer]ix SmartTM COVID-19 PCRassay. This test was developed and its performancecharacteristics were determined by [facility]. This test has notbeen FDA cleared or approved. This test is authorized by theFDA under Emergency Use Authorization(EUA). The EUA willremain in effect unless it is terminated or revoked by FDA . Testing parameters have not been validated for screeningasymptomatic patients. This test was validated according to the FDA's guidancedocument "Policy for Diagnostics testing in LaboratoriesCertified to Perform High Complexity Testing under CLIA". Specimen comments: PT IN PAT ROOM 3Specimen comments: PT IN PAT ROOM 3First test? UnknownEmployed in Healthcare? NoSymptomatic as defined by CDC? NoHospitalized due to COVID? NoIn ICU due to COVID? NoResident in a congregate care setting? No? NoAge at collection: YHCG SERUM [id number] 12:55:00* Test Item Value Reference Range Interpretation Comme nts HCG SERUM QUAL (test code = HCGQL) NEG SCREEN NEG Specimen comments: PT IN PAT ROOM 3Is this a LINE draw? NBASIC METABOLIC PANEL 2020-04-06 12:55:00* Test Item Value Reference Range Interpretation Comme nts SODIUM (test code = NA) 140.0 mmol/L 133-144 N POTASSIUM (test code = K) 3.5 mmol/L 3.5-5.1 N CHLORIDE (test code = CL) 106 mmol/L 95-105 H CARBON DIOXIDE (test code = CO2) 30 mmol/L 21-32 N ANION GAP (test code = GAP) 4.0 GAP calc 4.0-15.0 N GLUCOSE (test code = GLU) 157 MG/DL 70-110 H BLOOD UREA NITROGEN (test code = BUN) 10 MG/DL 7-18 N CREATININE (test code = CREAT) 0.71 MG/DL 0.55-1.30 N Results may be depressed if patient is takingN-Acetylcyste ine (NAC) and Metamizole (Dipyrone). CALCIUM (test code = CA) 9.5 MG/DL 8.5-10.1 N INDEX HEMOLYSIS (test code = HEMINDEX) 1 NORMAL <10 MG Index/DL 1 NORMAL INDEX ICTERIC (test code = ICTINDEX) 1 NORMAL <2 MG Index/DL 1 NORMAL INDEX LIPEMIA (test code = LIPINDEX) 1 NORMAL <50 MG Index/DL 1 NORMAL HGB [id number] 12:38:00* Test Item Value Reference Range Interpretation Comme nts RED BLOOD CELL (test code = RBC) 4.52 M/mm3 3.8-5.5 N HEMOGLOBIN (test code = HGB) 13.4 G/DL 10.6-15.8 N HEMATOCRIT (test code = HCT) 42.3 % 31.8-47.4 N MEAN CELL VOLUME (test code = MCV) 93.6 fL 80.1-101.1 N - XR CHEST 2 [id number] 12:21:00 [facility] BRANDEE JOSÉ : 1965 Sex: F FAX: Luis Eisenberg MD [phone] [place]: St: PRE Patient Name: BRANDEE JOSÉ Unit No: [id number] EXAMS: CPT CODE:[id number] XR CHEST 2 V 32895 Site ID: [id number] HISTORY: Preoperative FINDINGS: The lungs are clear and normally expanded. The heart and pulmonary vasculature is normal. Osseous structures are unremarkable. IMPRESSION: Normal preoperative chest x-ray at 1221 Reported and signed by: Santino Golden M.D. CC: Luis Porter MD Dictated Date/Time: 04/06/2020 (2027)Technologist: Smith Benton Transcribed Date/Time: 04/06/2020 (1663) By: [email or web address] Orig Print D/T: S: 04/06/2020 (3653) 791 Imaging NAME: BRANDEE JOSÉ [address] [place] [address] PHYS: Luis Mora MD [place], [place] : 1965 AGE: 54 SEX: F [address] LOC: SHADI PHONE #: [phone] EXAM DATE: 04/06/2020 STATUS: PRE SD FAX #: [phone] RAD NO: DC Dt: PAGE 1 Signed ReportGLUCOSE BEDSIDE [id number] 07:49:00* Test Item Value Reference Range Interpretation Comme nts GLUCOSE BEDSIDE TESTING (isrrael t code = GLUBED) 141 MG/DL 70-119 H Novel Coronavirus 2019 [id number] 18:08:00* Test Item Value Reference Range Interpretation Comme nts Novel Coronavirus 2019 Inhouse (test code = COVNONPUI) Not Detected Not Detected Testing was pe rformed using the Aptima SARS-CoV-2 assay.This nucleic acid amplification test was developed and itsperformance characteristics determined by [facility]. Nucleic acid amplification tests include PCRand TMA. This test has not been FDA cleared or approved.This test has been authorized by FDA under an Emergency UseAuthorization (EUA). This test is only authorized forthe duration of time the declaration that circumstancesexist justifying the authorization of the emergency use ofin vitro diagnostic tests for detection of SARS-CoV-2 virusand/or diagnosis of COVID-19 infection under axzjgni479(b)(1) of the Act, 21 U.S.C. 360bbb-3(b) (1), unless theauthorization is terminated or revoked sooner.When diagnostic testing is negative, the possibility of afalse negative result should be considered in the contextof a patient's recent exposures and the presence ofclinical signs and symptoms consistent with COVID-19. Anindividual without symptoms of COVID-19 and who is notshedding SARS-CoV-2 virus would expect to have a negative(not detected) result in this assay.Performed At: [facility] [address] [id number] Sam Gillis MD Ph:[phone] [facility] [id number] 16:55:00* Test Item Value Reference Range Interpretation Comme nts UR HCG QUAL (test code = HCGQLU) NEGATIVE NEG Very dilute urin es with a low specific gravity may notcontain sales representatives levels of hCG. - XR CHEST 2 [id number] 16:55:00 [facility] BRAN[facility]E JOSÉ : 1965 Sex: F FAX: Luis Eisenberg MD [phone] [place]: O St: PRE Patient Name: BRANDEE JOSÉ Unit No: [id number] EXAMS: CPT CODE: [id number] XR CHEST 2 V 10993 - XR CHEST 2 V LOCATION: T18 INDICATION:Preop, back pain The lungs arewell expanded and free of infiltrates. The costophrenic recesses are sharp without effusion. The heart, mediastinum and bony structures are within normal limits. IMPRESSION: No active disease. at 1655 Reported and signed by: Zackery Argueta D.O. CC: Luis Porter MD Dictated Date/Time: 03/01/2020 (1654)Technologist:Hailey Phan Transcribed Date/Time: 03/01/2020 (1654) By: Cony Orig Print D/T: S: 03/01/2020 (5001) JAY Hardwick NAME: BRANDEE JOSÉ [facility] DEPART[facility] PHYS: Luis Mora MD [address] [place] [address] BLVD : 1965 AGE: 54 SEX: F KAMILA, SARAH [address] LOC: SHADI PHONE #: [phone] EXAM DATE: 03/01/2020 STATUS: PRE SDC FAX #: [phone] RAD NO: DCDt: PAGE 1 Signed ReportCOMPREHENSIVE METABOLIC [id number] 16:39:00* Test Item Value Reference Range Interpretation Comme nts SODIUM (test code = NA) 140.0 mmol/L 133-144 N POTASSIUM (test code = K) 3.5 mmol/L 3.5-5.1 N CHLORIDE (test code = CL) 105 mmol/L 95-105 N CARBON DIOXIDE (test code = CO2) 32 mmol/L 21-32 N ANION GAP (test code = GAP) 3.0 GAP calc 4.0-15.0 L GLUCOSE (test code = GLU) 140 MG/DL 70-110 H BLOOD UREA NITROGEN (test code = BUN) 6 MG/DL 7-18 L GLOMERULAR FILTRATION RATE (test code = GFR) 103 estGFR >60 The estimated glomerular filtration rate is computed usingpatient race, age, sex, and serum creatinine. If any of theneeded data elements are missing the Laboratory can notcompute an estimation of the glomerular filtration rate.The GFR value units = ml/min/1.73 meter squared. EstimatedGFR values above 60 should be interpreted as >60, not anexact number.--- DRUG DOSAGE ALERT --- Drug dosage adjustments utilize different calculationparameter s. CREATININE (test code = CREAT) 0.61 MG/DL 0.55-1.30 N Results may be depressed if patient is takingN-Acetylcystei ne (NAC) and Metamizole (Dipyrone). TOTAL PROTEIN (test code = PROT) 7.2 G/DL 6.4-8.2 N ALBUMIN (test code = ALB) 3.5 G/DL 3.4-5.0 N ALBUMIN/GLOBULIN RATIO (test code = A/G) 0.9 RATIO 1.2-2.2 L CALCIUM (test code = CA) 9.1 MG/DL 8.5-10.1 N BILIRUBIN TOTAL (test code = BILT) 0.30 MG/DL 0.00-1.00 N BILIRUBIN DIRECT (test code = BILD) 0.12 MG/DL 0.00-0.30 N BILIRUBIN INDIRECT (test code = BILIND) 0.18 MG/DL 0.2-1.3 L SGOT/AST (test code = AST) 26 Unit/L 15-37 N SGPT/ALT (test code = ALT) 51 Unit/L 12-78 N ALKALINE PHOSPHATASE TOTAL (test code = ALKP) 97 Unit/L 45-117 N INDEX HEMOLYSIS (test code = HEMINDEX) 1 NORMAL <10 MG Index/DL 1 NORMAL INDEX ICTERIC (test code = ICTINDEX) 1 NORMAL <2 MG Index/DL 1 NORMAL INDEX LIPEMIA (test code = LIPINDEX) 1 NORMAL <50 MG Index/DL 1 NORMAL COMPREHENSIVE METABOLIC [id number] 16:34:00* Test Item Value Reference Range Interpretation Comme nts SODIUM (test code = NA) 140.0 mmol/L 133-144 N POTASSIUM (test code = K) 3.5 mmol/L 3.5-5.1 N CHLORIDE (test code = CL) 105 mmol/L 95-105 N CARBON DIOXIDE (test code = CO2) 32 mmol/L 21-32 N ANION GAP (test code = GAP) 3.0 GAP calc 4.0-15.0 L GLUCOSE (test code = GLU) 140 MG/DL 70-110 H BLOOD UREA NITROGEN (test code = BUN) 6 MG/DL 7-18 L CREATININE (test code = CREAT) MG/DL 0.55-1.30 TOTAL PROTEIN (test code = PROT) G/DL 6.4-8.2 ALBUMIN (test code = ALB) 3.5 G/DL 3.4-5.0 N ALBUMIN/GLOBULIN RATIO (test code = A/G) RATIO 1.2-2.2 CALCIUM (test code = CA) 9.1 MG/DL 8.5-10.1 N BILIRUBIN TOTAL (test code = BILT) MG/DL 0.00-1.00 BILIRUBIN DIRECT (test code = BILD) MG/DL 0.00-0.30 BILIRUBIN INDIRECT (test code = BILIND) MG/DL 0.2-1.3 SGOT/AST (test code = AST) Unit/L 15-37 SGPT/ALT (test code = ALT) Unit/L 12-78 ALKALINE PHOSPHATASE TOTAL (test code = ALKP) Unit/L 45-117 INDEX HEMOLYSIS (test code = HEMINDEX) 1 NORMAL <10 MG Index/DL 1 NORMAL INDEX ICTERIC (test code = ICTINDEX) 1 NORMAL <2 MG Index/DL 1 NORMAL INDEX LIPEMIA (test code = LIPINDEX) 1 NORMAL <50 MG Index/DL 1 NORMAL HGB [id number] 16:22:00* Test Item Value Reference Range Interpretation Comme nts RED BLOOD CELL (test code = RBC) 4.61 M/mm3 3.8-5.5 N HEMOGLOBIN (test code = HGB) 13.6 G/DL 10.6-15.8 N HEMATOCRIT (test code = HCT) 42.7 % 31.8-47.4 N MEAN CELL VOLUME (test code = MCV) 92.6 fL 80.1-101.1 N Notes Date/Time Note Provider Source 2024-01-13 14:00:00 Images from the original note were not included. Venipuncture collection performed by clean technique on the right anticubitus. Total of 1 attempts were made. Slight pressure and a bandage/dressing were applied to the site(s). The patient experienced no complications. The following specimens were processed according to instructions and sent to [facility] laboratories per lab order on today: LT BLUE SST 1 RED LAV PPT DK GREEN (LiHep) DK GREEN (SodH) ISABEL DK BLUE (K2) DK BLUE (S) ACD Blood Culture NIPT/NTD [facility] 2023-12-29 08:09:42 Refill has been sent to pharmacy on file. Future Appointments Date Type Provider Dept 01/13/24 Appointment Teresa Espana MD [facility] Showing future appointments within next 150 days with a meds authorizing provider and meeting all other requirements Shira Alicea RN [facility] 2023-12-15 10:50:00 Refill has been sent to pharmacy on file. Date Type Provider Dept 01/13/24 Appointment Teresa Espana MD [facility] Showing future appointments within next 150 days with a meds authorizing provider and meeting all other requirements Shira Alicea RN [facility] 2023-12-08 10:53:08 Refill has been sent to pharmacy on file. Future Appointments Date Type Provider Dept 01/13/24 Appointment Teresa Espana MD [facility] Showing future appointments within next 150 days with a meds authorizing provider and meeting all other requirements Shira Alicea RN [facility] 2023-10-23 09:58:01 Attempted to call pt to update her. Left VM to check Ion Torrenthart message. hepe Reddy LVN [facility] 2023-10-21 22:35:07 Sent 30 days refill for levothyroxine 75mcg. Patient need to complete thyroid lab for further refills. Her last thyroid lab was in 2021 Teresa Espana MD Division of Endocrinology and Metabolism [facility] 2023-10-21 15:50:49 Mychart message sent. Kendra Lo RN [facility] 2023-10-21 13:17:55 Please review and sign if appropriate: Last office visit: 07/08/23 Next office visit: 01/13/24 Requested Prescriptions Pending Prescriptions Disp Refills levothyroxine 75 mcg tablet Sig: Take 1 tablet by mouth every morning. Signed Prescriptions Disp Refills Insulin [place], Disposable, (DROPLET PEN NEEDLE) 32 gauge x 5/32" Ndle 100 Each 3 Sig: inject 1 Each under the skin in the morning. Authorizing Provider: TERESA ESPANA Ordering User: ANGELIC VELA LVN Acquired hypothyroidism Status: controlled Reviewed 10/15/21 TSH=3.1 01/22/22 TSH=3.8 Free T4=1.6 Plan Continue Levothyroxine 75mcg daily Notes: Pen needles sent to selected pharmacy [facility] 2023-10-20 18:04:46 Rx for needles was sent Please update with patient Her CT scan showed adrenal adenoma was stable All adrenal hormone tests was also normal Teresa Espana MD Division of Endocrinology and Metabolism [facility] 2023-10-20 15:43:59 Please review and sign if appropriate: *New request Last office visit: 07/08/23 Next office visit: 01/13/24 Requested Prescriptions Pending Prescriptions Disp Refills Insulin [place], Disposable, (DROPLET PEN NEEDLE) 32 gauge x 5/32" Ndle [Pharmacy Med Name: DROPLET PEN NDL 32G 5/32 IN (4MM)] 0 Notes: Uncontrolled type 2 diabetes mellitus with hyperglycemia - Primary T Angelic Vela LVN [facility] 2023-10-20 14:58:33 Brandee José is a 58 year old female is calling stating she is needing refills for the needles for Trulicity and Levothyroxine 75mcg. Please advise agustina, pt has been out for a whole week. [facility] [address] [place] [id number] Caprice Motta [facility] 2023-09-18 10:53:07 Patient notified of results. They verbalized understanding of results/recommendations via teach back. No further questions or concerns at this time. Kacy Fontenot RN [facility] 2023-07-29 12:00:00 Images from the original note were not included. Venipuncture collection performed by clean technique on the right anticubitus. Total of 3 attempts were made. Slight pressure and a bandage/dressing were applied to the site(s). The patient experienced no complications. The following specimens were processed according to instructions and sent to [facility] laboratories per lab order on 07/29/2023 : LT BLUE SST 4 RED LAV 3 PPT DK GREEN (LiHep) DK GREEN (SodH) ISABEL DK BLUE (K2) DK BLUE (S) ACD Blood Culture NIPT/NTD Patient has been identified by and name and was provided with cup, antiseptic towelette, and clean catch instructions. 1 urine specimen(s) sent. Unpreserved 1 Urine Culture Aptima tube Other urine T [facility] 2023-07-24 12:11:49 resending [facility] 2023-07-23 14:18:12 Brandee José is a 58 year old female Patient is requesting another prescription for dexAMETHasone 1 mg tablet be completed. She states she was unaware she needed to have labs drawn prior to 10am after taking medication. Please contact when available [facility] [address] [place] [id number] Maria Luisa Bryant [facility] 2023-07-17 12:45:00 Patient advised of test requirements for needing morning specimen- states she will come back for blood draw another day. Jael De Santiago [facility] 2023-04-16 08:56:46 MICAELA 11/12/2022 NOV 08/26/2023 toujeo 100u daily Kendra Donaldson MA 04/16/2023 9:02 AM [facility] 2023-04-09 16:49:07 Discussed concerns with patient regarding knee pain/swelling. Told patient this is very unlikely to be anything endocrine related but she needs to be evaluated to rule out a DVT. She stated she would go to urgent care. Told patient urgent care would not be able to do any scans to see if she has a blood clot. Patient aware and will decide what to do but knows importance of getting checked out to rule out a DVT. [facility] 2023-04-09 16:40:03 Brandee José is a 57 year old female Pt calling in stating her left knee is swollen and she has pain. Pt states her right knee is starting to swell also. Pt is requesting a call back from nurse. Please advise UNTANT CLERK Astrid Zamora [facility] 2020-04-11 13:28:00 [id number] [address] PATIENT NAME: BRANDEE JOSÉ ADMIT DATE: 04/11/20 ACCOUNT NO: [id number] ROOM NO: AGE: 54 REPORT TYPE: REPORT OF OPERATION SEX: F ADMITTING PHYSICIAN: ATTENDING PHYSICIAN:Luis Porter MD OPERATION DATE: 04/11/2020 PREOPERATIVE DIAGNOSES: L5-S1 herniated nucleus pulposus and left leg lumbar radicular syndrome. POSTOPERATIVE DIAGNOSES: L5-S1 herniated nucleus pulposus and left leg lumbar radicular syndrome. PROCEDURE: L5-S1 interlaminar epidural steroid injection with C-arm fluoroscopic guidance. SURGEON: Luis Porter MD JEWELRY MAKER: Rachael Arcos, licensed captain's assistant. ANESTHESIA: General endotracheal anesthesia. ESTIMATED BLOOD LOSS: None. SPECIMENS: None. COMPLICATIONS: None. DRAINS: None. PROCEDURE IN DETAIL: After identification in the preoperative hold area, the patient was taken to the operative suite where she was placed in a prone position on pillows. All bony prominences were well padded. Her back was prepped and draped in the usual standard fashion. A formal timeout was held, identifying the patient, the operative procedure, and the operative levels and side. Next, conscious sedation was administered by anesthesia. The starting point that would allow an interlaminar approach, L5-S1 was identified and the skin was marked. The skin and deep tissues were anesthetized with 1% lidocaine with epinephrine. A large-bore Tuohy needle was then advanced to the interspace at L5-S1. Using a loss of resistance technique, the needle was advanced through the ligamentum flavum, entering the epidural space at L5-S1. Aspiration produced no cerebrospinal fluid or blood. I then injected Isovue 300 and it did document intraepidural placement of the needle tip. Next, a single mL of 1% lidocaine solution as well as 40 mg of Depo-Medrol were injected. The needle was withdrawn. A sterile Band-Aid was placed. All sponge and needle counts were correct. Conscious sedation was then reversed, and the patient was returned to the recovery in stable condition. PATIENT NAME: BRANDEE JOSÉ Dictated By: Luis Porter MD WT: OP:BDENTON/DOROTHEA/MAURO Conf#: [id number]/DID#: [id number] Authenticated by Luis Porter MD On 04/17/2020 04:29:47 PM at 1630 PATIENT NAME: BRANDEE JOSÉ [facility] 2020-04-11 13:15:00 [facility] ([facility]) Brief Op Note REPORT#:[id number] REPORT STATUS: Signed DATE:04/11/20 TIME: 1315 PATIENT: BRANDEE JOSÉ UNIT #: [id number] ROOM/BED: : 67 AGE: 54 SEX: F ATTEND: Luis Porter MD ADM AUTHOR: Luis Porter MD * ALL edits or amendments must be made on the electronic/computer document * Op/Inv Proc Note - Brief Pre-procedure diagnosis: L5-S1 HNP and lumbar radiculopathy Post-procedure diagnosis: same as pre procedure dx Procedures performed: L5-S1 interlaminar epidural steroid injection with fluoroscopic guidance Primary Surgeon: Luis Porter MD Mill Machinist(s): none Findings: As above Complications: none Estimated blood loss in ml's: none Specimens removed/altered: none at 1316 RPT #:[id number] END OF REPORT [facility] 2020-04-06 12:12:00 [id number] [place] [address] PATIENT NAME: BRANDEE JOSÉ ADMIT DATE: ACCOUNT NO: [id number] ROOM NO: AGE: 54 REPORT TYPE: ELECTROCARDIOGRAM SEX: F ADMITTING PHYSICIAN: ATTENDING PHYSICIAN:Luis Porter MD Order: [id number] Test Reason : PREOP Test Date/Time Stamp: FriApr 06 2020 12:12:36 Blood Pressure : / mmHG Vent. Rate : 058 BPM Atrial Rate : 058 BPM P-R Int : 134 ms QRS Dur : 090 ms QT Int : 438 ms P-R-T Axes : 067 011 027 degrees QTc Int : 429 ms Sinus bradycardia with sinus arrhythmia Otherwise normal ECG When compared with ECG of 01-MAR-2020 16:01, No significant change was found Confirmed by NED ELLIS MD ([id number]) on 04/06/2020 2:53:56 PM Referred By: Luis Porter Confirmed by:NED ELLIS MD at 1454 PATIENT NAME: BRANDEE JOSÉ [facility] 2020-03-07 08:41:00 [phone] [place] [address] PATIENT NAME: BRANDEE JOSÉ ADMIT DATE: 03/07/20 ACCOUNT NO: [id number] ROOM NO: AGE: 54 REPORT TYPE: REPORT OF OPERATION SEX: F ADMITTING PHYSICIAN: ATTENDING PHYSICIAN:Luis Porter MD OPERATION DATE: PREOPERATIVE DIAGNOSES: Lumbar spinal stenosis and lumbar radicular syndrome. POSTOPERATIVE DIAGNOSES: Lumbar spinal stenosis and lumbar radicular syndrome. PROCEDURE: L5-S1 interlaminar epidural steroid injection with C-arm fluoroscopic guidance. SURGEON: Luis Porter MD JEWELRY MAKER: None. ANESTHESIA: Local with IV sedation. ESTIMATED BLOOD LOSS: None. SPECIMENS: None. COMPLICATIONS: None. DRAINS: None. PROCEDURE IN DETAIL: After identification in the preoperative hold area, the patient was taken to the operative suite, where she was placed in a prone position on pillows. All bony prominences were well padded. Her back was prepped and draped in the usual standard fashion. A formal timeout was held, identifying the patient, the operative procedure, and the operative level. Next, the starting point that would allow an interlaminar approach to L5-S1 was identified and the skin was marked. The skin and deep tissues were anesthetized with 1% lidocaine with epinephrine solution. Next, a Tuohy needle was advanced using C-arm fluoroscopic guidance to the interspace at L5-S1. Using a loss of resistance technique, the needle was advanced through the interspace entering the epidural space at L5-S1. Once it was felt that the needle tip was located within the epidural space, an epidurogram was performed with Isovue 300, and it did document intraepidural placement of the needle tip. Aspiration produced no cerebrospinal fluid or blood. Accordingly, I injected a single mL of 1% lidocaine solution and 40 mg of Depo-Medrol. The needle was withdrawn. A sterile Band-Aid was placed. All sponge and needle counts were correct. Conscious sedation was reversed, and she was returned to recovery in stable condition. PATIENT NAME: BRANDEE JOSÉ Dictated By: Luis Porter MD WT: OP:GIANLUCA/DOROTHEA/NTS Conf#: [id number]/DID#: [id number] Authenticated by Luis Porter MD On 03/16/2020 03:01:09 PM at 1501 PATIENT NAME: BRANDEE JOSÉ [facility] 2020-03-07 08:36:00 [facility] ([facility]) Brief Op Note REPORT#:[id number] REPORT STATUS: Signed DATE:03/07/20 TIME: 08 PATIENT: BRANDEE JOSÉ UNIT #: [id number] ROOM/BED: : 67 AGE: 54 SEX: F ATTEND: Luis Porter MD ADM AUTHOR: Luis Porter MD * ALL edits or amendments must be made on the electronic/computer document * Op/Inv Proc Note - Brief Pre-procedure diagnosis: Lumbar spinal stenosis and lumbar radiculopathy Post-procedure diagnosis: same as pre procedure dx Procedures performed: L5-S1 interlaminar epidural steroid injection with fluoroscopic guidance Primary Surgeon: Luis Porter MD Mill Machinist(s): none Findings: as above Complications: none Estimated blood loss in ml's: none Specimens removed/altered: none at 0837 RPT #:[id number] END OF REPORT [facility] 2020-03-01 16:01:00 [id number] [place] [address] PATIENT NAME: BRANDEE JOSÉ ADMIT DATE: ACCOUNT NO: [id number] ROOM NO: AGE: 54 REPORT TYPE: ELECTROCARDIOGRAM SEX: F ADMITTING PHYSICIAN: ATTENDING PHYSICIAN:Luis Porter MD Order: [id number] Test Reason : >50YO Test Date/Time Stamp: FriMar 01 2020 16:01:41 Blood Pressure : / mmHG Vent. Rate : 057 BPM Atrial Rate : 057 BPM P-R Int : 160 ms QRS Dur : 094 ms QT Int : 426 ms P-R-T Axes : 061 000 047 degrees QTc Int : 414 ms Sinus bradycardia with sinus arrhythmia Otherwise normal ECG Confirmed by RAMONA MORTENSEN MD ([id number]) on 03/02/2020 6:48:48 AM Referred By: Luis Porter Confirmed by:RAMONA MORTENSEN MD at 0649 PATIENT NAME: BRANDEE JOSÉ [facility]
--- NOTE | 2024-02-01 22:38 | EDPHYS ---
Physician Documentation [facility] Name: Brandee Rajan Age: 58 yrs Sex: Female : 1965 Arrival Date: 02/01/2024 Time: 21:57 Bed 12 Private MD: CED Physician Luis Carter HPI: 02/01 02:37 This 58 yrs old Female presents to ER via Ambulatory with complaints of Rash. rt 02:37 Patient presents to the ED with a generalized rash. Patient states that she believes rt that she has poison kriss as she had a large amount of yard work this past week. Reports itching. Denies other acute complaints at this time, symptoms are mild in severity, no other aggravating elevating factors.. Historical: - Home Meds: 01/31 22:23 amlodipine 5 mg tab 1 tab once daily [Active]; aspirin 81 mg Oral cap 1 cap once daily vc1 [Active]; benzonatate 100 mg Oral cap as needed for Cough [Active]; buspirone 15 mg Oral tab 1 tab 2 times per day [Active]; gabapentin 300 mg Oral cap 1 cap BID [Active]; metformin 750 mg Oral Tb24 1 tab 2 times per day [Active]; varenicline 1 mg Oral tab 1 tab 2 times per day [Active]; ursodiol 250 mg Oral tab 250 mg once a day [Active]; cetirizine 10 mg Oral cap daily [Active]; levothyroxine 75 mcg tab 1 tab once daily [Active]; losartan 100 mg oral tablet [Active]; pravastatin 20 mg Oral tab 1 tab once daily [Active]; Trintellix 20 mg Oral tab 1 tab once daily [Active]; Toujeo Max 100 units at night 100 units before bed [Active]; pantoprazole 40 mg Oral TbEC 1 tab once daily [Active]; - PMHx: 22:23 acid reflux; thyroid; Anxiety; Hypertensive disorder; Chronic obstructive lung disease; vc1 Arthritis; Hypercholesterolemia; diabetes mellitus; - PSHx: 22:23 Cholecystectomy; breast reduction; vc1 - Immunization history:: Client reports having NOT received the Covid vaccine. Flu vaccine is up to date. - Infectious Disease History:: Denies. - Social history:: Smoking status: Patient reports the use of cigarette tobacco products, 4 CIGS. - Family history:: not pertinent. ROS: 02/01 02:37 Constitutional: Negative for fever, chills, and weight loss, Cardiovascular: Negative rt for chest pain, palpitations, and edema, Respiratory: Negative for shortness of breath, cough, wheezing, and pleuritic chest pain, Abdomen/GI: Negative for abdominal pain, nausea, vomiting, diarrhea, and constipation, Neuro: Negative for headache, weakness, numbness, tingling, and seizure, Skin: Positive for Rash, urticaria, Exam: 02:37 Constitutional: This is a well developed, well nourished patient who is awake, alert, rt and in no acute distress. Head/Face: Normocephalic, atraumatic. Chest/axilla: Normal chest wall appearance and motion. Nontender with no deformity. No lesions are appreciated. Cardiovascular: Regular rate and rhythm with a normal S1 and S2. No gallops, murmurs, or rubs. Normal PMI, no JVD. No pulse deficits. Respiratory: Lungs have equal breath sounds bilaterally, clear to auscultation and percussion. No rales, rhonchi or wheezes noted. No increased work of breathing, no retractions or nasal flaring. Abdomen/GI: Soft, non-tender, with normal bowel sounds. No distension or tympany. No guarding or rebound. No evidence of tenderness throughout. 02:37 Skin: Rash consistent with dermatitis seen on legs, arms.. 02:37 Neuro: Vital Signs: 01/31 22:20 BP 142 / 58; Pulse 79; Resp 18; Temp 98.3; Pulse Ox 100% ; Weight 106.59 kg; Height 5 vc1 ft. 4 in. ; Pain 0/10; 22:58 BP 138 / 62; Pulse 74; Resp 16; Temp 98.4; Pulse Ox 100% ; me1 22:20 Body Mass Index 40.34 (106.59 kg, 162.56 cm) vc1 22:20 Pain Scale: Adult vc1 MDM: 22:27 Medical Screening Exam initiated rt 02/01 02:37 Differential diagnosis: Dermatitis, insect bites. Data reviewed: vital signs, nurses rt notes. Test considered but Not performed: Labs: Stable vital signs, no exam findings consistent for cellulitis. Labs are not indicated. Care significantly affected by the following chronic conditions: Diabetes. Counseling: I had a detailed discussion with the patient and/or guardian regarding the historical points, exam findings, and any diagnostic results supporting the discharge/admit diagnosis, the need for outpatient follow up, Discussed risk and benefits of steroids with regards to hyperglycemia, patient wishes to have steroids and understands the risk of hypoglycemia.. Administered Medications: 01/31 22:51 Drug: Dexamethasone IM 6 mg IM once Route: IM; Site: left deltoid; me1 22:55 Follow up: Response: No adverse reaction; Marked relief of symptoms me1 22:51 Drug: hydrOXYzine PO 25 mg PO once Route: PO; me1 22:55 Follow up: Response: No adverse reaction; Pain is decreased me1 Disposition Summary: 02/01/24 22:37 Discharge Ordered Notes: Location: Home rt Problem: new rt Symptoms: are unchanged rt Condition: Stable rt Diagnosis - Allergic contact dermatitis due to plants, except food rt Followup: rt - With: Private Physician - When: 2 - 3 days - Reason: Discharge Instructions: - Discharge Summary Sheet rt - Poison Kriss Dermatitis rt Forms: - Medication Reconciliation Form rt - Antibiotic Education rt - Prescription Opioid Use rt - Patient Portal Instructions rt - Leadership Thank You Letter rt Prescriptions: - Hydroxyzine HCl 25 mg Oral Tablet - take 1 tablet ORAL route every 6 hours As needed; 30 tablet; Refills: 0, rt Product Selection Permitted - Prednisone 20 mg Oral Tablet - take 1 tablet ORAL route once daily for 5 days; 5 tablet; Refills: 0, Product rt Selection Permitted Signatures: Kendra Patterson RN RN vc1 Luis Carter MD MD rt Abimbola Dean RN RN me1
--- NOTE | 2024-02-01 22:38 | ER ---
Nurse's Notes [facility] Name: Brandee Rajan Age: 58 yrs Sex: Female : 1965 Arrival Date: 02/01/2024 Time: 21:57 Bed 12 Private MD: Diagnosis: Allergic contact dermatitis due to plants, except food Presentation: 01/31 22:20 Chief complaint: Patient states: I GOT INTO EITHER POISON VERO OR SUMAC OR SOMETHING vc1 BECAUSE IT IS ALL OVER MY ARMS, MY RIGHT GROIN AND THIGH AND BOTH LEGS. I CAN'T TAKE THE ITCHING ANYMORE. Coronavirus screen: Client denies travel out of the [place] in the last 14 days. At this time, the client does not indicate any symptoms associated with coronavirus-19. Ebola Screen: Patient negative for fever greater than or equal to 101.5 degrees Fahrenheit, and additional compatible Ebola Virus Disease symptoms Patient denies exposure to infectious person. Patient denies travel to an Ebola-affected area in the 21 days before illness onset. No symptoms or risks identified at this time. Initial Sepsis Screen: Does the patient meet any 2 criteria? No. Patient's initial sepsis screen is negative. Does the patient have a suspected source of infection? No. Patient's initial sepsis screen is negative. Risk Assessment: Do you want to hurt yourself or someone else? Patient reports no desire to harm self or others. Onset of symptoms was February 01, 2024. Care prior to arrival: None. Activity prior to arrival: None. Mechanism of Injury: No Mechanism of Injury. Transition of care: patient was not received from another setting of care. 22:20 Method Of Arrival: Ambulatory vc1 22:20 Acuity: ONELIA 4 vc1 Triage Assessment: 22:27 General: Appears in no apparent distress. uncomfortable, obese, Behavior is calm, vc1 cooperative, appropriate for age. Pain: Denies pain. EENT: No deficits noted. No signs and/or symptoms were reported regarding the EENT system. Neuro: Level of Consciousness is awake, alert, obeys commands, Oriented to person, place, time, situation, Appropriate for age. Cardiovascular: Capillary refill Patient's skin is warm and dry. Respiratory: Airway is patent Respiratory effort is even, unlabored, Respiratory pattern is regular, symmetrical. GI: Abdomen is round non-distended. : No deficits noted. No signs and/or symptoms were reported regarding the genitourinary system. Derm: Rash noted that is itchy, on right femoral area, right inguinal area, right arm, left arm, right leg and left leg. Musculoskeletal: Circulation, motion, and sensation intact. Range of motion: intact in all extremities. Historical: - Home Meds: 22:23 amlodipine 5 mg tab 1 tab once daily [Active]; aspirin 81 mg Oral cap 1 cap once daily vc1 [Active]; benzonatate 100 mg Oral cap as needed for Cough [Active]; buspirone 15 mg Oral tab 1 tab 2 times per day [Active]; gabapentin 300 mg Oral cap 1 cap BID [Active]; metformin 750 mg Oral Tb24 1 tab 2 times per day [Active]; varenicline 1 mg Oral tab 1 tab 2 times per day [Active]; ursodiol 250 mg Oral tab 250 mg once a day [Active]; cetirizine 10 mg Oral cap daily [Active]; levothyroxine 75 mcg tab 1 tab once daily [Active]; losartan 100 mg oral tablet [Active]; pravastatin 20 mg Oral tab 1 tab once daily [Active]; Trintellix 20 mg Oral tab 1 tab once daily [Active]; Toujeo Max 100 units at night 100 units before bed [Active]; pantoprazole 40 mg Oral TbEC 1 tab once daily [Active]; - PMHx: 22:23 acid reflux; thyroid; Anxiety; Hypertensive disorder; Chronic obstructive lung disease; vc1 Arthritis; Hypercholesterolemia; diabetes mellitus; - PSHx: 22:23 Cholecystectomy; breast reduction; vc1 - Immunization history:: Client reports having NOT received the Covid vaccine. Flu vaccine is up to date. - Infectious Disease History:: Denies. - Social history:: Smoking status: Patient reports the use of cigarette tobacco products, 4 CIGS. - Family history:: not pertinent. Screenin:[facility] ED Fall Risk Assessment (Adult) History of falling in the last 3 months, me1 including since admission No falls in past 3 months (0 pts) Confusion or Disorientation No (0 pts) Intoxicated or Sedated No (0 pts) Impaired Gait No (0 pts) Mobility Assist Device Used No (0 pt) Altered Elimination No (0 pt) Score/Fall Risk Level 0 - 2 = Low Risk Oriented to surroundings, Provided non-skid footwear, Hourly rounding (assess needs \T\ fall precautionary measures) done. 22:27 Abuse screen: Denies threats or abuse. Nutritional screening: No deficits noted. vc1 Tuberculosis screening: No symptoms or risk factors identified. Assessment: 22:15 General: Appears in no apparent distress. uncomfortable, well groomed, well developed, me1 well nourished, Behavior is calm, cooperative, appropriate for age, Reports I GOT INTO EITHER POISON VERO OR SUMAC OR SOMETHING BECAUSE IT IS ALL OVER MY ARMS, MY RIGHT GROIN AND THIGH AND BOTH LEGS. I CAN'T TAKE THE ITCHING ANYMORE. Pain: Denies pain. Neuro: Level of Consciousness is awake, alert, obeys commands, Oriented to person, place, time, situation, Appropriate for age. Cardiovascular: Patient's skin is warm and dry. Respiratory: Airway is patent Respiratory effort is even, unlabored, Respiratory pattern is regular, symmetrical. GI: No signs and/or symptoms were reported involving the gastrointestinal system. : No signs and/or symptoms were reported regarding the genitourinary system. EENT: No signs and/or symptoms were reported regarding the EENT system. Derm: Skin is healthy with good turgor, Skin is normal, Rash noted that is red, raised, on left leg and right leg and left arm and right arm and pelvis and right inguinal area and right femoral area. Musculoskeletal: No signs and/or symptoms reported regarding the musculoskeletal system. Vital Signs: 22:20 BP 142 / 58; Pulse 79; Resp 18; Temp 98.3; Pulse Ox 100% ; Weight 106.59 kg; Height 5 vc1 ft. 4 in. ; Pain 0/10; 22:58 BP 138 / 62; Pulse 74; Resp 16; Temp 98.4; Pulse Ox 100% ; me1 22:20 Body Mass Index 40.34 (106.59 kg, 162.56 cm) vc1 22:20 Pain Scale: Adult vc1 ED Course: 21:58 Patient arrived in ED. gm2 22:15 Luis Carter MD is Attending Physician. rt 22:15 Patient has correct armband on for positive identification. Bed in low position. Call me1 light in reach. Side rails up X 1. Provided Education on: POC. Verbalized understanding.. 22:15 No provider procedures requiring assistance completed. Patient did not have IV access me1 during this emergency room visit. 22:23 Triage completed. vc1 22:27 Abimbola Dean, RN is Primary Nurse. me1 22:27 Arm band placed on right wrist. vc1 Administered Medications: 22:51 Drug: Dexamethasone IM 6 mg IM once Route: IM; Site: left deltoid; me1 22:55 Follow up: Response: No adverse reaction; Marked relief of symptoms me1 22:51 Drug: hydrOXYzine PO 25 mg PO once Route: PO; me1 22:55 Follow up: Response: No adverse reaction; Pain is decreased me1 Medication: 22:15 VIS not applicable for this client. me1 Outcome: 22:37 Discharge ordered by MD. rt 22:58 Discharged to home ambulatory, me1 22:58 Condition: stable 22:58 Discharge instructions given to patient, Instructed on discharge instructions, follow up and referral plans. medication usage, Demonstrated understanding of instructions, follow-up care, medications, Prescriptions given X 2, 22:59 Patient left the ED. me1 Signatures: Kendra Patterson RN RN vc1 Luis Carter MD MD rt Abimbola Dean RN RN me1 Amisha Shoemaker gm2 Corrections: (The following items were deleted from the chart) 22:56 22:20 Chief complaint: Patient states: I GOT INTO EITHER POISON VERO OR SUMAC OR me1 SOMETHING BECAUSE IT IS ALL OVER MY ARMS, MY RIGHT GROIN AND THIGH AND BOTH LEGS. I CAN'T TAKE THE ITCHING ANYMORE vc1
[2024-02-01] MEDS ORDERED: hydrOXYzine HCL 25 MG TAB ONE (22:46)
[2024-02-01] MEDS ORDERED: dexAMETHasone 10 MG/ML VIAL ONE (22:46)
[2024-02-02 03:42] VITALS: O2SAT 100
[2024-02-02 03:44] VITALS: BP 138/62; TEMP 98.4
== END 2024-02-01 22:59 | disposition home or self-care (01) ==
LOC: ER 21:57
DX: L23.7 Allergic contact dermatitis due to plants, except food (principal); Z72.0 Tobacco use
CPT/HCPCS: 96372; 99284; J1100

== ENCOUNTER 2024-06-21 20:11 | Emergency (ER) | payer OTHER ==
--- OUTSIDE RECORDS SUMMARY | 2024-06-21 20:17 | XMS REPORT | Continuity of Care Document ---
Author Name Unknown Address [address] [place] [address] [facility] Address [address] [facility] 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 Role Phone Rocio BECKFORD, Roberto Carlos Meehan Primary Care Physician Chayo Gonzalez Attending Clinician Unavailable Jessa Ruelas Attending Clinician Unavailable Luis Porter Attending Clinician Unavaila TERESA Bridges Attending Clinician Unavailable Teresa Espana MD Attending Clinician [phone] Doctor Unassigned, [place] Attending Clinician U navailable Lab, Ang - Db Attending Clinician Unavailable Tiesha Frost MD Attending Clinician TIESHA FROST Attending Clinician Unavailable Doctor Unassigned, [place] Attending Clinician U navailable Lab, Ang - Db Attending Clinician Unavailable Teresa Espana MD Attending Clinician SAFIA HOGAN Attending Clinician Unavailable [email or web address] Attending Clinician Unavailjefferson fish Carlos Yesika Admitting Clinician Unavailable Physician, No Primary or Family Admitting Clinic adina Unavailable TERESA ESPANA Admitting Clinician Unavailable [email or web address] Admitting Clinician Unavaila leyla Payers Payer Name Policy Type Policy Number Effective Date Expirati on Date Source HU[employer]NA MEDICARE 53 [id number] 2019 00:00:00 [facility] 53 [id number] 2021 00:00:00 [facility] HUMANA (MEDICARE REPLACEMENT/ADV ANTAGE - HMO) [id number] [place] [id number] [place]NA MEDICARE C1 [id number] 2019 00:00:00 [facility] HUMANA MEDICARE C1 [id number] 2019 00:00:00 [facility] HUMANA MEDICARE C1 [id number] 2019 00:00:00 [facility] HUMANA MEDICARE C1 [id number] 2019 00:00:00 [facility] HUMANA MEDICARE C1 [id number] 2019 00:00:00 [facility] HUMANA MEDICARE C1 [id number] 2019 00:00:00 [facility] HUMANA MEDICARE C1 [id number] 2019 00:00:00 [facility] HUMANA MEDICARE C1 [id number] 2019 00:00:00 [facility] Problems Condition Name Condition Details Condition Category Status Onset Date Resolution Date Last Treatment Date Treating Clinician Comments Source Postmenopa usal bleeding Postmenopa usal Bleeding Problem Active 05-10 00:00: 00 [facility] Mixed urinary incontinen ce Mixed Urinary Incontinen ce Problem Active 05-10 00:00: 00 [facility] Overactive urinary bladder Overactive Urinary Bladder Problem Active 3-03 00:00: 00 [facility] Incontinen ce-associa debra dermatitis Incontinen ce-associa debra Dermatitis Problem Active 3-03 00:00: 00 [facility] Malignant melanoma of skin Malignant Melanoma of Skin Problem Active 2-10 00:00: 00 [facility] Umbilical hernia Umbilical Hernia Problem Active 2-10 00:00: 00 [facility] Candidiasi s of vagina Candidiasi s of Vagina Problem Active 2023-03 00:00: 00 [facility] Nicotine dependence Nicotine Dependence Problem Active 2023-03 00:00: 00 [facility] Abscess of skin and/or subcutaneo us tissue Abscess of Skin And/or Subcutaneo us Tissue Problem Active 2023-03 00:00: 00 [facility] Morbid obesity Morbid obesity Disease Active 09-02 00:00: 00 [facility] Primary hypertensi on Primary hypertensi on Disease Active 09-02 00:00: 00 [facility] FRANCESCA on CPAP FRANCESCA on CPAP Disease Active 09-02 00:00: 00 [facility] Fatigue, unspecifie d type Fatigue, unspecifie d type Disease Active 09-02 00:00: 00 [facility] Cigarette smoker Cigarette smoker Disease Active 09-02 00:00: 00 [facility] Hyperlipid emia, unspecifie d hyperlipid emia type Hyperlipid emia, unspecifie d hyperlipid emia type Disease Active 09-02 00:00: 00 [facility] Hypothyroi dism Hypothyroi dism Problem Active 11-12 00:00: 00 [facility] Type 2 diabetes mellitus Type 2 Diabetes Mellitus Problem Active 11-12 00:00: 00 [facility] Depressive disorder Depressive Disorder Problem Active 11-12 00:00: 00 [facility] Chronic obstructiv e pulmonary disease Chronic Obstructiv e Pulmonary Disease Problem Active 11-12 00:00: 00 [facility] Gastroesop hageal reflux disease Gastroesop hageal Reflux Disease Problem Active 11-12 00:00: 00 [facility] Adrenal mass 1 cm to 4 cm in diameter Adrenal mass 1 cm to 4 cm in diameter Disease Active 05-27 00:00: 00 [facility] [id number] Type 2 diabetes mellitus with hyperglyce juan c Problem [facility] [id number] Mixed hyperlipid emia Problem [facility] [id number] Other chronic pain Problem [facility] [id number] Depression with anxiety Problem [facility] Gallstones Gallstones Problem [facility] [id number] Type 2 diabetes mellitus without complicati ons Problem [facility] [id number] [facility] (current) use of insulin Problem [facility] [id number] Cigarette nicotine dependence with nicotine-i nduced disorder Problem [facility] Anxiety Anxiety Problem [facility] Allergic rhinitis Allergic rhinitis Problem [facility] Diabetes mellitus without complicati on Diabetes DMII without complicati ons Problem [facility] [id number] 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 Problem [facility] [id number] Acute bronchitis , unspecifie d organism Problem [facility] [id number] Lumbar degenerati ve disc disease Problem [facility] [id number] Lesion of plantar nerve, left lower limb Problem [facility] [id number] Pain in left foot Problem [facility] [id number] Posterior tibial tendinitis , left leg Problem [facility] Seizure Seizures Problem [facility] 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 (disorder) Type 2 diabetes mellitus with both eyes affected by mild nonprolife rative retinopath y without macular edema, without long-term current use of insulin Problem Common [facility] Memory problem Memory problem Problem [facility] Acquired hypothyroi dism Acquired hypothyroi dism Problem [facility] [id number] Suspected ingested foreign body not found after observatio n Problem [facility] [id number] Type 2 diabetes mellitus with other diabetic kidney complicati on Problem [facility] [id number] Pain, joint, knee, left Problem [facility] [id number] Pain, joint, knee, right Problem [facility] Nasal sinus problem (finding) Sinus problem Problem [facility] [id number] Leukocytos is, unspecifie d type Problem [facility] [id number] Primary osteoarthr itis of right knee Problem [facility] Allergies, Adverse Reactions, Alerts Allergy Name Allergy Type Status Severity Reaction(s) Onset Date Inactive Date Treating Clinician Comments Source cedarwoo d DA Active RI 04-06 00:00: 00 [facility] ragweed pollen DA Active RI 04-06 00:00: 00 [facility] cedarwoo d DA Active RI SINUS PROBLEMS 04-06 00:00: 00 [facility] ragweed pollen DA Active RI SINUS PROBLEMS 04-06 00:00: 00 [facility] No Known Allergie s DA Active U 2019-03 00:00: 00 [facility] No Known Allergie s DA Active U 2019-03 00:00: 00 [facility] NO KNOWN ALLERGIE S Drug Class Active [facility] Social History Social Habit Start Date Stop Date Quantity Comments Source Sex Assigned At [facility] Sexual orientation U [facility] History of tobacco use Passive smoker [facility] History of Social function 2023-09-03 00:00:00 2023-09-03 00:00:00 [facility] Tobacco use and exposure 2023-09-03 00:00:00 2023-09-03 00:00:00 Smokeless tobacco non-user [facility] Exposure to SARS-CoV-2 (event) 2022-05-06 00:00:00 2022-05-16 15:29:00 Not sure [facility] Smoking Status Start Date Stop Date Source Unknown if ever smoked [facility] Smokes tobacco daily 2023-09-03 00:00:00 [facility] Medications Ordered Medication Name Filled Medication Name Start Date Stop Date Current Medication? Ordering Clinician Indication Dosage Frequency Signature (SIG) Comments Components Source gabapentin 300 mg capsule 06-03 00:00: 00 Yes [id number] 9106 TAKE 1 CAPSULE EVERY MORNING AND EVENING [facility] ursodiol 250 mg tablet 04-21 00:00: 00 Yes 1mg [facility] TOUJEO MAX U-300 SOLOSTAR 300 unit/mL (3 mL) InPn 04-01 00:00: 00 Yes [id number] 100U INJECT 100 UNITS UNDER THE SKIN IN THE MORNING [facility] DROPLET PEN NEEDLE 32 gauge x 5/32" Ndle 04-01 00:00: 00 Yes [id number] USE DIRECTED ONE TIME DAILY IN THE MORNING [facility] Toujeo Max U-300 SoloStar 300 unit/mL (3 mL) subcutaneou s insulin pen 04-01 00:00: 00 Yes (3 mL) [facility] GABAPENTIN 300 mg capsule - 00:00: 00 06-03 00:00 :00 No [id number] 9106 TAKE 1 CAPSULE EVERY MORNING AND EVENING [facility] metformin ER 750 mg tablet,exte nded release 24 hr 03-10 00:00: 00 Yes mg [facility] pravastatin 20 mg tablet 2023-03 00:00: 00 Yes mg [facility] varenicline tartrate 1 mg tablet 2023-03 00:00: 00 Yes mg [facility] levothyroxi ne 75 mcg tablet 2023-03 00:00: 00 Yes mcg [facility] buspirone 15 mg tablet 2023-03 00:00: 00 Yes mg [facility] Trintellix 20 mg tablet 2023-03 00:00: 00 Yes mg [facility] amlodipine 5 mg tablet 2023-03 00:00: 00 Yes mg [facility] losartan 100 mg tablet 2023-03 00:00: 00 Yes mg [facility] GABAPENTIN 300 mg capsule 2023-03 0- 00:00: 00 03-19 00:00 :00 No [id number] TAKE 1 CAPSULE EVERY MORNING AND EVENING [facility] ACCU-CHEK GUIDE TEST STRIPS strip 2023-03 0-07 00:00: 00 Yes [id number] TEST BLOOD SUGAR TWICE DAILY [facility] gabapentin 300 mg capsule 12-07 00:00: 00 12-28 00:00 :00 No [id number] 9106 TAKE 1 CAPSULE EVERY MORNING AND EVENING [facility] Insulin Mccall, Disposable, (DROPLET PEN NEEDLE) 32 gauge x 5/32" Ndle 10-20 00:00: 00 04-01 00:00 :00 No [id number] 1{each} inject 1 Each under the skin in the morning. [facility] Insulin Mccall, Disposable, (DROPLET PEN NEEDLE) 32 gauge x 5/32" Ndle 12 00:00: 00 10-20 00:00 :00 No [id number] 1{each} inject 1 Each under the skin in the morning. [facility] cetirizine 10 mg tablet 09-02 14:19: 02 Yes 10mg Take 1 tablet by mouth in the morning. [facility] benzonatate 100 mg capsule 09-02 14:19: 02 Yes [id number] Take 100 capsules by mouth in the morning. [facility] meloxicam 15 mg tablet 30 00:00: 00 Yes mg [facility] dexAMETHaso ne 1 mg tablet 16 00:00: 00 Yes [id number] 1mg Take 1 tablet by mouth SEE-INSTRU CTIONS. Take at 23:00 for dexamethas one suppressio n test, night before blood draw [facility] iopamidol (ISOVUE 370-500 mL) injection 100 mL 07-11 17:15: 00 07-11 17:17 :00 No [id number] 100mL 100 mL, Intravenou s, ONCE, 1 dose, On 07/12/23 at 1230, Routine [facility] dexAMETHaso ne 1 mg tablet 07-07 00:00: 00 07-23 00:00 :00 No [id number] 1mg Take 1 tablet by mouth SEE-INSTRU CTIONS. Take at 23:00 for dexamethas one suppressio n test, night before blood draw [facility] TOUJEO MAX U-300 SOLOSTAR 300 unit/mL (3 mL) [facility] 04-16 00:00: 00 04-01 00:00 :00 No [id number] 100U INJECT 100 UNITS UNDER THE SKIN IN THE MORNING [facility] Levothyroxi ne Sodium 75 MCG Levothyroxi ne Sodium 75 MCG 2022-03- 00:00: 00 No QD Levothyrox ine Sodium 75 MCG ACCU-CHEK GUIDE TEST STRIPS strip 2022-03 2- 00:00: 00 12-14 00:00 :00 No [id number] TEST BLOOD SUGAR TWICE DAILY [facility] insulin glargine U-300 conc (TOUJEO MAX U-300 SOLOSTAR) 300 unit/mL (3 mL) [facility] 2022-03- 00:00: 00 04-16 00:00 :00 No [id number] 100U INJECT 100 UNITS UNDER THE SKIN IN THE MORNING [facility] gabapentin 300 mg capsule 11-12 00:00: 00 12-07 00:00 :00 No [id number] 9106 300mg Take 1 capsule by mouth in the morning and 1 capsule in the evening. [facility] dulaglutide (TRULICITY) 3 mg/0.5 mL PnIj 11-12 00:00: 00 07-07 00:00 :00 No [id number] 3mg inject 1 Pen under the skin weekly. [facility] insulin glargine U-300 conc (TOUJEO MAX U-300 SOLOSTAR) 300 unit/mL (3 mL) [facility] -22 00:00: 00 01-31 00:00 :00 No [id number] 100U inject 100 Units under the skin in the morning. [facility] ACCU-CHEK GUIDE TEST STRIPS strip - 00:00: 00 02-19 00:00 :00 No [id number] TEST 2 TIMES DAILY E11.65 [facility] dulaglutide (TRULICITY) 1.5 mg/0.5 mL PnIj 05-14 00:00: 00 11-12 00:00 :00 No [id number] 1.5mg inject 1 Pen under the skin weekly. [facility] insulin glargine U-300 conc (TOUJEO MAX U-300 SOLOSTAR) 300 unit/mL (3 mL) [facility] - 00:00: 00 07-29 00:00 :00 No [id number] 100U inject 100 Units under the skin in the morning. [facility] insulin glargine U-300 conc (TOUJEO MAX U-300 SOLOSTAR) 300 unit/mL (3 mL) [facility] 1-14 00:00: 00 05-14 00:00 :00 No [id number] 90U inject 90 Units under the skin in the morning. [facility] dulaglutide (TRULICITY) 0.75 mg/0.5 mL Ij 1-08 00:00: 00 05-14 00:00 :00 No [id number] INJECT 0.75MG (1 PEN) SUBCUTANEO USLY EVERY WEEK [facility] amLODIPine Besylate 5 MG amLODIPine Besylate 5 MG 9-08 00:00: 00 No 1{table t} QD amLODIPine Besylate 5 MG mirabegron (MYRBETRIQ) 50 mg tablet 8- 19:09: 35 10-30 00:00 :00 No 50mg Take 50 mg by mouth daily. [facility] Insulin Glargine (LANTUS SOLOSTAR U-100 INSULIN) 100 unit/mL (3 mL) injection 10-30 12:32: 16 10-30 00:00 :00 No 68U inject 68 Units under the skin daily. Per sliding scale [facility] empaglifloz in (JARDIANCE) 25 mg Tab 10-30 00:00: 00 05-14 00:00 :00 No [id number] 25mg Take 1 tablet by mouth every morning. [facility] insulin glargine U-300 conc (TOUJEO MAX U-300 SOLOSTAR) 300 unit/mL (3 mL) InPn 10-30 00:00: 00 03-23 00:00 :00 No [id number] 80U inject 80 Units under the skin daily. E11.65 [facility] dulaglutide (TRULICITY) 0.75 mg/0.5 mL PnIj 10-30 00:00: 00 03-17 00:00 :00 No [id number] .75mg inject 1 Pen under the skin weekly. [facility] ACCU-CHEK GUIDE TEST STRIPS strip 10-20 00:00: 00 05-14 00:00 :00 No TEST 2 TIMES DAILY [facility] gabapentin 300 mg capsule 10-19 00:00: 00 11-12 00:00 :00 No [facility] JANUMET 50-1,000 mg per tablet 09-29 00:00: 00 10-30 00:00 :00 No [facility] losartan 50 mg tablet 09-14 00:00: 00 Yes [facility] benzonatate 100 mg capsule 05-01 11:57: 13 Yes 100{cap elizabeth} Take 100 capsules by mouth daily. [facility] cetirizine 10 mg tablet 05-01 11:57: 13 Yes 10mg Take 10 mg by mouth daily. [facility] Trintellix 20 MG Trintellix 20 MG No 1{table t} QD Trintellix 20 MG Aspir-Low 81 MG Aspir-Low 81 MG No 1{table t} QD Aspir-Low 81 MG Pantoprazol e Sodium 40 MG Pantoprazol [...] } TID Albuterol Sulfate (2.5 MG/3ML) 0.083% Mounjaro 15 MG/0.5ML Mounjaro 15 MG/0.5ML No Mounjaro 15 MG/0.5ML Accu-Chek Guide Glucose Meter USE DIRECTED Accu-Chek Guide Glucose Meter USE DIRECTED No Accu-Chek Guide Glucose Meter USE DIRECTED [facility] [place] Accu-Chek Guide L1-L2 Control Solution Accu-Chek Guide L1-L2 Control Solution No Accu-Chek Guide L1-L2 Control Solution [facility] Accu-Chek Guide test strips TEST 2 TIMES DAILY Accu-Chek Guide test strips TEST 2 TIMES DAILY No Accu-Chek Guide test strips TEST 2 TIMES DAILY [facility] Accu-Chek Softclix Lancets Accu-Chek Softclix Lancets No Accu-Chek Softclix Lancets [facility] albuterol sulfate 2.5 mg/3 mL (0.083 %) solution for nebulizatio n prn albuterol sulfate 2.5 mg/3 mL (0.083 %) solution for nebulizatio n prn No albuterol sulfate 2.5 mg/3 mL (0.083 %) solution for nebulizati on prn [facility] Alive Hair, Skin and Nails Alive Hair, Skin and Nails No Alive Hair, Skin and Nails [facility] amlodipine 5 mg tablet amlodipine 5 mg tablet No amlodipine 5 mg tablet [facility] BD Janet 2nd Gen Pen Needle 32 [...] THE SKIN ONCE DAILY IN THE MORNING [facility] buspirone 15 mg tablet TAKE 1 TABLET BY MOUTH TWICE DAILY buspirone 15 mg tablet TAKE 1 TABLET BY MOUTH TWICE DAILY No buspirone 15 mg tablet TAKE 1 TABLET BY MOUTH TWICE DAILY [facility] iron iron No iron [facility] levothyroxi ne 75 mcg tablet TAKE 1 TABLET BY MOUTH IN THE MORNING ON AN EMPTY STOMACH FOR 90 DAYS levothyroxi ne 75 mcg tablet TAKE 1 TABLET BY MOUTH IN THE MORNING ON AN EMPTY STOMACH FOR 90 DAYS No levothyrox ine 75 mcg tablet TAKE 1 TABLET BY MOUTH IN THE MORNING ON AN EMPTY STOMACH FOR 90 DAYS [facility] losartan 100 mg tablet TAKE 1 TABLET BY MOUTH ONCE DAILY losartan 100 mg tablet TAKE 1 TABLET BY MOUTH ONCE DAILY No losartan 100 mg tablet TAKE 1 TABLET BY MOUTH ONCE DAILY [facility] metformin ER 750 mg tablet,exte nded release 24 hr metformin ER 750 mg tablet,exte nded release 24 hr No metformin ER 750 mg tablet,ext ended release 24 hr [facility] Mounjaro 10 mg/0.5 mL subcutaneou s pen injector Mounjaro 10 mg/0.5 mL subcutaneou s pen injector No Mounjaro 10 mg/0.5 mL subcutaneo us pen injector [facility] Multivitami n 50 Plus Multivitami n 50 Plus No Multivitam in 50 Plus [facility] nystatin 100,000 unit/gram topical ointment APPLY TO THE AFFECTED AREA(S) BY TOPICAL ROUTE 2 TIMES PER DAY nystatin 100,000 unit/gram topical ointment APPLY TO THE AFFECTED AREA(S) BY TOPICAL ROUTE 2 TIMES PER DAY No nystatin 100,000 unit/gram topical ointment APPLY TO THE AFFECTED AREA(S) BY TOPICAL ROUTE 2 TIMES PER DAY [facility] pantoprazol e 40 mg tablet,mayra yed release TAKE 1 TABLET BY MOUTH ONCE DAILY pantoprazol e 40 mg tablet,mayra yed release TAKE 1 TABLET BY MOUTH ONCE DAILY No pantoprazo le 40 mg tablet,del ayed release TAKE 1 TABLET BY MOUTH ONCE DAILY [facility] pravastatin 20 mg tablet pravastatin 20 mg tablet No pravastati n 20 mg tablet [facility] Trintellix 20 mg tablet TAKE 1 TABLET BY MOUTH ONCE DAILY Trintellix 20 mg tablet TAKE 1 TABLET BY MOUTH ONCE DAILY No Trintellix 20 mg tablet TAKE 1 TABLET BY MOUTH ONCE DAILY [facility] Ultra Thin Lancets 31 gauge TEST 2 TIMES DAILY Ultra Thin Lancets 31 gauge TEST 2 TIMES DAILY No Ultra Thin Lancets 31 gauge TEST 2 TIMES DAILY [facility] ursodiol 250 mg tablet ursodiol 250 mg tablet No ursodiol 250 mg tablet [facility] varenicline tartrate 1 mg tablet varenicline tartrate 1 mg tablet No vareniclin e tartrate 1 mg tablet [facility] nystatin-tr iamcinolone 100,000 unit/g-0.1 % topical cream APPLY TO THE AFFECTED AREA(S) BY TOPICAL ROUTE 2 TIMES PER DAY, IN THE MORNING AND EVENING nystatin-tr iamcinolone 100,000 unit/g-0.1 % topical cream APPLY TO THE AFFECTED AREA(S) BY TOPICAL ROUTE 2 TIMES PER DAY, IN THE MORNING AND EVENING No nystatin-t riamcinolo ne 100,000 unit/g-0.1 % topical cream APPLY TO THE AFFECTED AREA(S) BY TOPICAL ROUTE 2 TIMES PER DAY, IN THE MORNING AND EVENING [facility] Immunizations Ordered Immunization Name Filled Immunization Name Date Status Comments Source Flucelvax - single dose syringe Flucelvax - single dose syringe 2022-02-14 16:15:00 Completed [facility] Flucelvax - single dose syringe Flucelvax - single dose syringe 2022-02-14 16:15:00 Completed [facility] Flucelvax - single dose syringe Flucelvax - single dose syringe 2022-02-14 16:15:00 Completed [facility] Flucelvax - single dose syringe Flucelvax - single dose syringe 2022-02-14 16:15:00 Completed [facility] Flucelvax - single dose syringe Flucelvax - single dose syringe 2022-02-14 16:15:00 Completed [facility] Fluarix (IIV3) - SDS - 0.5mL Fluarix (IIV3) - SDS - 0.5mL 2021-01-01 14:46:00 Completed [facility] Afluria Afluria 2021-01-01 14:46:00 Completed [facility] Afluria Afluria 2021-01-01 14:46:00 Completed [facility] Afluria Afluria 2021-01-01 14:46:00 Completed [facility] Afluria Afluria 2021-01-01 14:46:00 Completed [facility] Afluria Afluria 2021-01-01 14:46:00 Completed [facility] Afluria Afluria 2021-01-01 14:46:00 Completed [facility] Afluria Afluria 2021-01-01 14:46:00 Completed [facility] Afluria Afluria 2021-01-01 14:46:00 Completed [facility] Afluria Afluria 2021-01-01 14:46:00 Completed [facility] Afluria Afluria 2021-01-01 14:46:00 Completed [facility] Afluria Afluria 2021-01-01 14:46:00 Completed [facility] Afluria Afluria 2021-01-01 14:46:00 Completed [facility] Afluria Afluria 2021-01-01 14:46:00 Completed [facility] Afluria Afluria 2021-01-01 14:46:00 Completed [facility] Afluria Afluria 2021-01-01 14:46:00 Completed [facility] Afluria Afluria 2021-01-01 14:46:00 Completed [facility] Afluria Afluria 2021-01-01 14:46:00 Completed [facility] Fluzone Fluzone 2019-04-02 08:45:00 Completed [facility] Fluzone Fluzone 2019-04-02 08:45:00 Completed [facility] Fluzone Fluzone 2019-04-02 08:45:00 Completed [facility] Fluzone Fluzone 2019-04-02 08:45:00 Completed [facility] Fluzone Fluzone 2019-04-02 08:45:00 Completed [facility] Fluzone Fluzone 2019-04-02 08:45:00 Completed [facility] Fluzone Fluzone 2019-04-02 08:45:00 Completed [facility] Fluzone Fluzone 2019-04-02 08:45:00 Completed [facility] Fluzone Fluzone 2019-04-02 08:45:00 Completed [facility] Fluzone Fluzone 2019-04-02 08:45:00 Completed [facility] Fluzone Fluzone 2019-04-02 08:45:00 Completed [facility] Fluzone Fluzone 2019-04-02 08:45:00 Completed [facility] Fluzone Fluzone 2019-04-02 08:45:00 Completed [facility] Fluzone Fluzone 2019-04-02 08:45:00 Completed [facility] Fluzone Fluzone 2019-04-02 08:45:00 Completed [facility] Fluzone Fluzone 2019-04-02 08:45:00 Completed [facility] Fluzone Fluzone 2019-04-02 08:45:00 Completed [facility] Fluzone Fluzone 2019-04-02 08:45:00 Completed [facility] Fluzone Fluzone 2019-04-02 08:45:00 Completed [facility] Fluzone Fluzone 2019-04-02 08:45:00 Completed [facility] Fluzone Fluzone 2019-04-02 00:00:00 Completed [facility] Afluria Afluria Unknown Completed [facility] Fluzone Fluzone Unknown Completed [facility] Flucelvax - single dose syringe Flucelvax - single dose syringe Unknown Completed [facility] Afluria Afluria Unknown Completed [facility] Fluzone Fluzone Unknown Completed [facility] Flucelvax - single dose syringe Flucelvax - single dose syringe Unknown Completed [facility] Flucelvax - single dose syringe Flucelvax - single dose syringe Unknown Completed [facility] Fluzone Fluzone Unknown Completed [facility] Afluria Afluria Unknown Completed [facility] Afluria Afluria Unknown Completed [facility] Fluzone Fluzone Unknown Completed [facility] Flucelvax - single dose syringe Flucelvax - single dose syringe Unknown Completed [facility] Afluria Afluria Unknown Completed [facility] Fluzone Fluzone Unknown Completed [facility] Flucelvax - single dose syringe Flucelvax - single dose syringe Unknown Completed [facility] Afluria Afluria Unknown Completed [facility] Fluzone Fluzone Unknown Completed [facility] Flucelvax - single dose syringe Flucelvax - single dose syringe Unknown Completed [facility] Afluria Afluria Unknown Completed [facility] Fluzone Fluzone Unknown Completed [facility] Flucelvax - single dose syringe Flucelvax - single dose syringe Unknown Completed [facility] Afluria Afluria Unknown Completed [facility] Fluzone Fluzone Unknown Completed [facility] Flucelvax - single dose syringe Flucelvax - single dose syringe Unknown Completed [facility] Afluria Afluria Unknown Completed [facility] Fluzone Fluzone Unknown Completed [facility] Flucelvax (ccIIV4) - SDS - 0.5mL Flucelvax (ccIIV4) - SDS - 0.5mL Unknown Completed [facility] Afluria Afluria Unknown Completed [facility] Fluzone Fluzone Unknown Completed [facility] Flucelvax (ccIIV4) - SDS - 0.5mL Flucelvax (ccIIV4) - SDS - 0.5mL Unknown Completed [facility] Afluria Afluria Unknown Completed [facility] Fluzone Fluzone Unknown Completed [facility] Flucelvax (ccIIV4) - SDS - 0.5mL Flucelvax (ccIIV4) - SDS - 0.5mL Unknown Completed [facility] Afluria Afluria Unknown Completed [facility] Fluzone Fluzone Unknown Completed [facility] Flucelvax (ccIIV4) - SDS - 0.5mL Flucelvax (ccIIV4) - SDS - 0.5mL Unknown Completed [facility] Afluria Afluria Unknown Completed [facility] Fluzone Fluzone Unknown Completed [facility] Flucelvax (ccIIV4) - SDS - 0.5mL Flucelvax (ccIIV4) - SDS - 0.5mL Unknown Completed [facility] Afluria Afluria Unknown Completed [facility] Fluzone Fluzone Unknown Completed [facility] Flucelvax (ccIIV4) - SDS - 0.5mL Flucelvax (ccIIV4) - SDS - 0.5mL Unknown Completed [facility] Afluria Afluria Unknown Completed [facility] Fluzone Fluzone Unknown Completed [facility] Flucelvax (ccIIV4) - SDS - 0.5mL Flucelvax (ccIIV4) - SDS - 0.5mL Unknown Completed [facility] Afluria Afluria Unknown Completed [facility] Fluzone Fluzone Unknown Completed [facility] Flucelvax (ccIIV4) - SDS - 0.5mL Flucelvax (ccIIV4) - SDS - 0.5mL Unknown Completed [facility] Afluria Afluria Unknown Completed [facility] Fluzone Fluzone Unknown Completed [facility] Flucelvax (ccIIV4) - SDS - 0.5mL Flucelvax (ccIIV4) - SDS - 0.5mL Unknown Completed [facility] Afluria Afluria Unknown Completed [facility] Fluzone Fluzone Unknown Completed [facility] Flucelvax (ccIIV4) - SDS - 0.5mL Flucelvax (ccIIV4) - SDS - 0.5mL Unknown Completed [facility] Afluria Afluria Unknown Completed [facility] Fluzone Fluzone Unknown Completed [facility] Flucelvax (ccIIV4) - SDS - 0.5mL Flucelvax (ccIIV4) - SDS - 0.5mL Unknown Completed [facility] Afluria Afluria Unknown Completed [facility] Fluzone Fluzone Unknown Completed [facility] Flucelvax (ccIIV4) - SDS - 0.5mL Flucelvax (ccIIV4) - SDS - 0.5mL Unknown Completed [facility] Afluria Afluria Unknown Completed [facility] Fluzone Fluzone Unknown Completed [facility] Flucelvax (ccIIV4) - SDS - 0.5mL Flucelvax (ccIIV4) - SDS - 0.5mL Unknown Completed [facility] Afluria Afluria Unknown Completed [facility] Fluzone Fluzone Unknown Completed [facility] Flucelvax (ccIIV4) - SDS - 0.5mL Flucelvax (ccIIV4) - SDS - 0.5mL Unknown Completed [facility] Afluria Afluria Unknown Completed [facility] Fluzone Fluzone Unknown Completed [facility] Flucelvax (ccIIV4) - SDS - 0.5mL Flucelvax (ccIIV4) - SDS - 0.5mL Unknown Completed [facility] Afluria Afluria Unknown Completed [facility] Fluzone Fluzone Unknown Completed [facility] Flucelvax (ccIIV4) - SDS - 0.5mL Flucelvax (ccIIV4) - SDS - 0.5mL Unknown Completed [facility] Afluria Afluria Unknown Completed [facility] Fluzone Fluzone Unknown Completed [facility] Flucelvax (ccIIV4) - SDS - 0.5mL Flucelvax (ccIIV4) - SDS - 0.5mL Unknown Completed [facility] Afluria Afluria Unknown Completed [facility] Fluzone Fluzone Unknown Completed [facility] Flucelvax (ccIIV4) - SDS - 0.5mL Flucelvax (ccIIV4) - SDS - 0.5mL Unknown Completed [facility] Afluria Afluria Unknown Completed [facility] Fluzone Fluzone Unknown Completed [facility] Flucelvax (ccIIV4) - SDS - 0.5mL Flucelvax (ccIIV4) - SDS - 0.5mL Unknown Completed [facility] Afluria Afluria Unknown Completed [facility] Fluzone Fluzone Unknown Completed [facility] Flucelvax (ccIIV4) - SDS - 0.5mL Flucelvax (ccIIV4) - SDS - 0.5mL Unknown Completed [facility] Afluria Afluria Unknown Completed [facility] Fluzone Fluzone Unknown Completed [facility] Flucelvax (ccIIV4) - SDS - 0.5mL Flucelvax (ccIIV4) - SDS - 0.5mL Unknown Completed [facility] Afluria Afluria Unknown Completed [facility] Fluzone Fluzone Unknown Completed [facility] Flucelvax (ccIIV4) - SDS - 0.5mL Flucelvax (ccIIV4) - SDS - 0.5mL Unknown Completed [facility] Afluria Afluria Unknown Completed [facility] Fluzone Fluzone Unknown Completed [facility] Flucelvax (ccIIV4) - SDS - 0.5mL Flucelvax (ccIIV4) - SDS - 0.5mL Unknown Completed [facility] Afluria Afluria Unknown Completed [facility] Fluzone Fluzone Unknown Completed [facility] Flucelvax (ccIIV4) - SDS - 0.5mL Flucelvax (ccIIV4) - SDS - 0.5mL Unknown Completed [facility] Boostrix (Tdap) Boostrix (Tdap) Unknown Completed [facility] Vital Signs Vital Name Observation Time Observation Value Comments S briannace height 2024-05-12 13:20:00 64.50 [in_i] Com [facility] weight 2024-05-12 13:20:00 224 [lb_av] Comm on [facility] temperature 2024-05-12 13:20:00 97.4 [degF] Com [facility] bmi 2024-05-12 13:20:00 37.85 kg/m2 Comm on [facility] oximetry 2024-05-12 13:20:00 98 % Commo n [facility] respiratory rate 2024-05-12 13:20:00 16 /min [facility] blood pressure systolic 2024-05-12 13:20:00 124 mm[Hg] [facility] blood pressure diastolic 2024-05-12 13:20:00 78 mm[Hg] [facility] BMI (Body Mass Index) 2024-05-06 00:00:00 38.6 kg/m2 [facility] Weight 2024-05-06 00:00:00 225 [lb_av] [facility] Height 2024-05-06 00:00:00 64 [in_i] [facility] height 2024-04-21 15:20:00 64.50 [in_i] Com [facility] weight 2024-04-21 15:20:00 225.8 [lb_av] Co mmon [facility] temperature 2024-04-21 15:20:00 97.3 [degF] Com [facility] bmi 2024-04-21 15:20:00 38.16 kg/m2 Comm on [facility] oximetry 2024-04-21 15:20:00 96 % Commo n [facility] respiratory rate 2024-04-21 15:20:00 16 /min Common [facility] blood pressure systolic 2024-04-21 15:20:00 136 mm[Hg] [facility] blood pressure diastolic 2024-04-21 15:20:00 70 mm[Hg] Common [facility] BP Diastolic 2024-04-19 00:00:00 62 mm[Hg] [facility] BP Systolic 2024-04-19 00:00:00 136 mm[Hg] [facility] Height 2024-04-19 00:00:00 64 [in_i] [facility] BMI (Body Mass Index) 2024-04-19 00:00:00 39.3 kg/m2 [facility] Weight 2024-04-19 00:00:00 229 [lb_av] [facility] height 2024-03-11 10:20:00 64.50 [in_i] Com [facility] weight 2024-03-11 10:20:00 230.4 [lb_av] Co mmon [facility] temperature 2024-03-11 10:20:00 97.2 [degF] Com [facility] bmi 2024-03-11 10:20:00 38.93 kg/m2 Comm on [facility] oximetry 2024-03-11 10:20:00 97 % Commo n [facility] respiratory rate 2024-03-11 10:20:00 16 /min [facility] blood pressure systolic 2024-03-11 10:20:00 126 mm[Hg] [facility] blood pressure diastolic 2024-03-11 10:20:00 62 mm[Hg] Common [facility] height 2024-03-11 10:20:00 64.50 [in_i] Com [facility] weight 2024-03-11 10:20:00 230.4 [lb_av] Co mmon [facility] temperature 2024-03-11 10:20:00 97.2 [degF] Com [facility] bmi 2024-03-11 10:20:00 38.93 kg/m2 Comm on [facility] oximetry 2024-03-11 10:20:00 97 % Commo n [facility] respiratory rate 2024-03-11 10:20:00 16 /min [facility] blood pressure systolic 2024-03-11 10:20:00 126 mm[Hg] Common [facility] blood pressure diastolic 2024-03-11 10:20:00 62 mm[Hg] [facility] BP Diastolic 2024-02-11 00:00:00 65 mm[Hg] [facility] Body Weight 2024-02-11 00:00:00 237.8 [lb_av] [facility] BP Systolic 2024-02-11 00:00:00 148 mm[Hg] [facility] Height 2024-02-11 00:00:00 64 [in_i] [facility] height 2024-02-09 14:00:00 64.50 [in_i] Com [facility] weight 2024-02-09 14:00:00 236 [lb_av] Comm on [facility] temperature 2024-02-09 14:00:00 97.3 [degF] Com [facility] bmi 2024-02-09 14:00:00 39.88 kg/m2 Comm on [facility] oximetry 2024-02-09 14:00:00 96 % Commo n [facility] respiratory rate 2024-02-09 14:00:00 16 /min [facility] blood pressure systolic 2024-02-09 14:00:00 144 mm[Hg] Common [facility] blood pressure diastolic 2024-02-09 14:00:00 70 mm[Hg] Common [facility] Body Weight 2024-01-22 00:00:00 238.4 [lb_av] [facility] Height 2024-01-22 00:00:00 64 [in_i] [facility] BP Systolic 2024-01-22 00:00:00 142 mm[Hg] [facility] BMI (Body Mass Index) 2024-01-22 00:00:00 40.9 kg/m2 [facility] BP Diastolic 2024-01-22 00:00:00 71 mm[Hg] [facility] Medical Systolic blood pressure 2024-01-13 18:54:00 122 mm[Hg] [facility] Diastolic blood pressure 2024-01-13 18:54:00 80 mm[Hg] [facility] Heart rate 2024-01-13 18:54:00 65 /min [facility] Respiratory rate 2024-01-13 18:54:00 18 /min [facility] Body height 2024-01-13 18:54:00 162.6 cm [facility] Body weight 2024-01-13 18:54:00 108.727 kg [facility] BMI 2024-01-13 18:54:00 41.14 kg/m2 [facility] Oxygen saturation in Arterial blood by Pulse oximetry 2024-01-13 18:54:00 96 /min [facility] height 2023-12-16 11:00:00 64.50 [in_i] Com [facility] weight 2023-12-16 11:00:00 240 [lb_av] Comm on [facility] temperature 2023-12-16 11:00:00 97.5 [degF] Com [facility] bmi 2023-12-16 11:00:00 40.56 kg/m2 Comm on [facility] height 2023-10-31 15:00:00 64.50 [in_i] Com [facility] weight 2023-10-31 15:00:00 240 [lb_av] Comm on [facility] temperature 2023-10-31 15:00:00 97.4 [degF] Com [facility] bmi 2023-10-31 15:00:00 40.56 kg/m2 Comm on [facility] oximetry 2023-10-31 15:00:00 97 % Commo n [facility] respiratory rate 2023-10-31 15:00:00 16 /min Common [facility] blood pressure systolic 2023-10-31 15:00:00 128 mm[Hg] [facility] blood pressure diastolic 2023-10-31 15:00:00 74 mm[Hg] [facility] height 2023-10-31 15:00:00 64.50 [in_i] Com [facility] weight 2023-10-31 15:00:00 240 [lb_av] Comm on [facility] temperature 2023-10-31 15:00:00 97.4 [degF] Com [facility] bmi 2023-10-31 15:00:00 40.56 kg/m2 Comm on [facility] oximetry 2023-10-31 15:00:00 97 % Commo n [facility] respiratory rate 2023-10-31 15:00:00 16 /min Common [facility] blood pressure systolic 2023-10-31 15:00:00 128 mm[Hg] [facility] blood pressure diastolic 2023-10-31 15:00:00 74 mm[Hg] [facility] height 2023-10-06 08:40:00 64.50 [in_i] Com [facility] weight 2023-10-06 08:40:00 239 [lb_av] Comm on [facility] temperature 2023-10-06 08:40:00 97.2 [degF] Com [facility] bmi 2023-10-06 08:40:00 40.39 kg/m2 Comm on [facility] oximetry 2023-10-06 08:40:00 96 % Commo n [facility] respiratory rate 2023-10-06 08:40:00 16 /min [facility] blood pressure systolic 2023-10-06 08:40:00 128 mm[Hg] [facility] blood pressure diastolic 2023-10-06 08:40:00 74 mm[Hg] [facility] Systolic blood pressure 2023-09-03 19:21:00 147 mm[Hg] [facility] Diastolic blood pressure 2023-09-03 19:21:00 57 mm[Hg] [facility] Heart rate 2023-09-03 19:21:00 78 /min [facility] Oxygen saturation in Arterial blood by Pulse oximetry 2023-09-03 19:21:00 96 /min [facility] Body height 2023-09-03 19:19:00 162.6 cm [facility] Body weight 2023-09-03 19:19:00 111.131 kg [facility] BMI 2023-09-03 19:19:00 42.05 kg/m2 [facility] height 2023-07-30 14:00:00 64.50 [in_i] Com [facility] weight 2023-07-30 14:00:00 242 [lb_av] Comm on [facility] temperature 2023-07-30 14:00:00 97.5 [degF] Com [facility] bmi 2023-07-30 14:00:00 40.89 kg/m2 Comm on [facility] oximetry 2023-07-30 14:00:00 97 % Commo n [facility] respiratory rate 2023-07-30 14:00:00 16 /min [facility] blood pressure systolic 2023-07-30 14:00:00 126 mm[Hg] [facility] blood pressure diastolic 2023-07-30 14:00:00 74 mm[Hg] [facility] Systolic blood pressure 2023-07-08 16:48:00 142 mm[Hg] [facility] Diastolic blood pressure 2023-07-08 16:48:00 67 mm[Hg] [facility] Heart rate 2023-07-08 16:48:00 98 /min [facility] Body height 2023-07-08 16:48:00 162.6 cm [facility] Body weight 2023-07-08 16:48:00 110.133 kg [facility] BMI 2023-07-08 16:48:00 41.68 kg/m2 [facility] height 2023-06-30 15:00:00 64.50 [in_i] Com [facility] weight 2023-06-30 15:00:00 238 [lb_av] Comm on [facility] bmi 2023-06-30 15:00:00 40.22 kg/m2 Comm on [facility] blood pressure systolic 2023-06-30 15:00:00 125 mm[Hg] [facility] blood pressure diastolic 2023-06-30 15:00:00 86 mm[Hg] [facility] height 2023-05-15 13:30:00 64.50 [in_i] Com [facility] weight 2023-05-15 13:30:00 238 [lb_av] Comm on [facility] temperature 2023-05-15 13:30:00 97.6 [degF] Com [facility] bmi 2023-05-15 13:30:00 40.22 kg/m2 Comm on [facility] blood pressure systolic 2023-05-15 13:30:00 128 mm[Hg] [facility] blood pressure diastolic 2023-05-15 13:30:00 74 mm[Hg] [facility] height 2023-04-21 10:40:00 64.50 [in_i] Com [facility] weight 2023-04-21 10:40:00 238 [lb_av] Comm on [facility] temperature 2023-04-21 10:40:00 97.1 [degF] Com [facility] bmi 2023-04-21 10:40:00 40.22 kg/m2 Comm on [facility] oximetry 2023-04-21 10:40:00 99 % Commo n [facility] respiratory rate 2023-04-21 10:40:00 17 /min Common [facility] blood pressure systolic 2023-04-21 10:40:00 126 mm[Hg] [facility] blood pressure diastolic 2023-04-21 10:40:00 70 mm[Hg] [facility] height 2023-04-21 10:40:00 64.50 [in_i] Com [facility] weight 2023-04-21 10:40:00 238 [lb_av] Comm on [facility] temperature 2023-04-21 10:40:00 97.1 [degF] Com [facility] bmi 2023-04-21 10:40:00 40.22 kg/m2 Comm on [facility] oximetry 2023-04-21 10:40:00 99 % Commo n [facility] respiratory rate 2023-04-21 10:40:00 17 /min [facility] blood pressure systolic 2023-04-21 10:40:00 126 mm[Hg] Common [facility] blood pressure diastolic 2023-04-21 10:40:00 70 mm[Hg] [facility] height 2023-02-07 14:00:00 64.50 [in_i] Com [facility] weight 2023-02-07 14:00:00 237 [lb_av] Comm on [facility] temperature 2023-02-07 14:00:00 97.1 [degF] Com [facility] bmi 2023-02-07 14:00:00 40.05 kg/m2 Comm on [facility] oximetry 2023-02-07 14:00:00 95 % Commo n [facility] respiratory rate 2023-02-07 14:00:00 16 /min [facility] blood pressure systolic 2023-02-07 14:00:00 134 mm[Hg] [facility] blood pressure diastolic 2023-02-07 14:00:00 68 mm[Hg] [facility] height 2023-01-08 13:00:00 64.50 [in_i] Com [facility] weight 2023-01-08 13:00:00 232 [lb_av] Comm on [facility] temperature 2023-01-08 13:00:00 97.8 [degF] Com [facility] bmi 2023-01-08 13:00:00 39.2 kg/m2 Commo n [facility] oximetry 2023-01-08 13:00:00 97 % Commo n [facility] respiratory rate 2023-01-08 13:00:00 16 /min [facility] blood pressure systolic 2023-01-08 13:00:00 137 mm[Hg] [facility] blood pressure diastolic 2023-01-08 13:00:00 57 mm[Hg] [facility] Systolic blood pressure 2022-11-12 16:26:00 120 mm[Hg] [facility] Diastolic blood pressure 2022-11-12 16:26:00 60 mm[Hg] [facility] Heart rate 2022-11-12 16:26:00 74 /min [facility] 2022-11-12 16:26:00 162.6 cm [facility] Body weight 2022-11-12 16:26:00 109.09 kg [facility] BMI 2022-11-12 16:26:00 41.28 kg/m2 [facility] Oxygen saturation in Arterial blood by Pulse oximetry 2022-11-12 16:26:00 98 /min [facility] height 2022-07-10 14:00:00 64.50 [in_i] Com [facility] weight 2022-07-10 14:00:00 232 [lb_av] Comm on [facility] temperature 2022-07-10 14:00:00 97.1 [degF] Com [facility] bmi 2022-07-10 14:00:00 39.2 kg/m2 Commo n [facility] oximetry 2022-07-10 14:00:00 97 % Commo n [facility] respiratory rate 2022-07-10 14:00:00 17 /min [facility] blood pressure systolic 2022-07-10 14:00:00 136 mm[Hg] [facility] blood pressure diastolic 2022-07-10 14:00:00 72 mm[Hg] [facility] height 2022-07-10 14:40:00 64.50 [in_i] Com [facility] weight 2022-07-10 14:40:00 232 [lb_av] Comm on [facility] temperature 2022-07-10 14:40:00 97.1 [degF] Com [facility] bmi 2022-07-10 14:40:00 39.2 kg/m2 Commo n [facility] oximetry 2022-07-10 14:40:00 97 % Commo n [facility] respiratory rate 2022-07-10 14:40:00 17 /min [facility] blood pressure systolic 2022-07-10 14:40:00 136 mm[Hg] [facility] blood pressure diastolic 2022-07-10 14:40:00 72 mm[Hg] [facility] Systolic blood pressure 2022-05-14 18:45:00 135 mm[Hg] [facility] Diastolic blood pressure 2022-05-14 18:45:00 74 mm[Hg] [facility] Heart rate 2022-05-14 18:45:00 83 /min [facility] Respiratory rate 2022-05-14 18:45:00 18 /min [facility] Body height 2022-05-14 18:45:00 162.6 cm [facility] Body weight 2022-05-14 18:45:00 106.278 kg [facility] BMI 2022-05-14 18:45:00 40.22 kg/m2 [facility] height 2022-04-11 11:00:00 64.50 [in_i] Com [facility] weight 2022-04-11 11:00:00 230 [lb_av] Comm on [facility] bmi 2022-04-11 11:00:00 38.87 kg/m2 Comm on [facility] height 2022-02-14 15:00:00 64.50 [in_i] Com [facility] weight 2022-02-14 15:00:00 228.4 [lb_av] Co mmon [facility] temperature 2022-02-14 15:00:00 97.3 [degF] Com [facility] bmi 2022-02-14 15:00:00 38.60 kg/m2 Comm on [facility] oximetry 2022-02-14 15:00:00 98 % Commo n [facility] respiratory rate 2022-02-14 15:00:00 16 /min Common [facility] blood pressure systolic 2022-02-14 15:00:00 135 mm[Hg] Common [facility] blood pressure diastolic 2022-02-14 15:00:00 70 mm[Hg] Common [facility] height 2022-01-21 13:20:00 64.50 [in_i] Com [facility] weight 2022-01-21 13:20:00 230 [lb_av] Comm on [facility] bmi 2022-01-21 13:20:00 38.87 kg/m2 Comm on [facility] height 2021-11-15 15:40:00 64.50 [in_i] Com [facility] weight 2021-11-15 15:40:00 226.8 [facility] 15:40:00 97.2 [degF] Com [facility] bmi 2021-11-15 15:40:00 38.32 kg/m2 Comm on [facility] oximetry 2021-11-15 15:40:00 96 % Commo n [facility] respiratory rate 2021-11-15 15:40:00 16 /min [facility] blood pressure systolic 2021-11-15 15:40:00 124 mm[Hg] [facility] blood pressure diastolic 2021-11-15 15:40:00 68 mm[Hg] [facility] Systolic blood pressure 2021-10-30 16:52:00 126 mm[Hg] [facility] Diastolic blood pressure 2021-10-30 16:52:00 79 mm[Hg] [facility] Heart rate 2021-10-30 16:52:00 74 /min [facility] 2021-10-30 16:52:00 105.597 kg [facility] BMI 2021-10-30 16:52:00 39.96 kg/m2 [facility] Oxygen saturation in Arterial blood by Pulse oximetry 2021-10-30 16:52:00 98 /min [facility] height 2021-10-18 15:40:00 64.50 [in_i] Com [facility] weight 2021-10-18 15:40:00 228.8 [lb_av] Co [facility] temperature 2021-10-18 15:40:00 97.4 [degF] Com [facility] bmi 2021-10-18 15:40:00 38.66 kg/m2 Comm on [facility] oximetry 2021-10-18 15:40:00 97 % Commo n [facility] respiratory rate 2021-10-18 15:40:00 16 /min Common [facility] blood pressure systolic 2021-10-18 15:40:00 130 mm[Hg] [facility] blood pressure diastolic 2021-10-18 15:40:00 68 mm[Hg] [facility] height 2021-09-13 15:40:00 64.50 [in_i] Com [facility] weight 2021-09-13 15:40:00 231.6 [lb_av] Co mmon [facility] temperature 2021-09-13 15:40:00 97.2 [degF] Com [facility] bmi 2021-09-13 15:40:00 39.14 kg/m2 Comm on [facility] oximetry 2021-09-13 15:40:00 96 % Commo n [facility] respiratory rate 2021-09-13 15:40:00 16 /min [facility] blood pressure systolic 2021-09-13 15:40:00 140 mm[Hg] [facility] blood pressure diastolic 2021-09-13 15:40:00 82 mm[Hg] Common [facility] height 2021-08-14 13:00:00 64.50 [in_i] Com [facility] weight 2021-08-14 13:00:00 231 [lb_av] Comm on [facility] temperature 2021-08-14 13:00:00 96.8 [degF] Com [facility] bmi 2021-08-14 13:00:00 39.03 kg/m2 Comm on [facility] oximetry 2021-08-14 13:00:00 98 % Commo n [facility] respiratory rate 2021-08-14 13:00:00 16 /min Common [facility] blood pressure systolic 2021-08-14 13:00:00 155 mm[Hg] [facility] blood pressure diastolic 2021-08-14 13:00:00 70 mm[Hg] [facility] height 2021-06-05 14:00:00 64.50 [in_i] Com [facility] weight 2021-06-05 14:00:00 233 [lb_av] Comm on [facility] temperature 2021-06-05 14:00:00 96.7 [degF] Com [facility] bmi 2021-06-05 14:00:00 39.37 kg/m2 Comm on [facility] blood pressure systolic 2021-06-05 14:00:00 146 mm[Hg] Common [facility] blood pressure diastolic 2021-06-05 14:00:00 84 mm[Hg] Common [facility] height 2021-05-11 13:20:00 64.50 [in_i] Com [facility] weight 2021-05-11 13:20:00 228.7 [lb_av] Co mmon [facility] temperature 2021-05-11 13:20:00 97.8 [degF] Com [facility] bmi 2021-05-11 13:20:00 38.65 kg/m2 Comm on [facility] oximetry 2021-05-11 13:20:00 98 % Commo n [facility] respiratory rate 2021-05-11 13:20:00 18 /min Common [facility] blood pressure systolic 2021-05-11 13:20:00 139 mm[Hg] Common [facility] blood pressure diastolic 2021-05-11 13:20:00 67 mm[Hg] Common [facility] height 2021-05-11 14:00:00 64.50 [in_i] Com [facility] weight 2021-05-11 14:00:00 228.7 [lb_av] Co mmon [facility] temperature 2021-05-11 14:00:00 97.8 [degF] Com [facility] bmi 2021-05-11 14:00:00 38.65 kg/m2 Comm on [facility] blood pressure systolic 2021-05-11 14:00:00 139 mm[Hg] Common [facility] blood pressure diastolic 2021-05-11 14:00:00 67 mm[Hg] Common [facility] height 2021-04-02 15:20:00 64.50 [in_i] Com [facility] weight 2021-04-02 15:20:00 228 [lb_av] Comm on [facility] temperature 2021-04-02 15:20:00 96.9 [degF] Com [facility] bmi 2021-04-02 15:20:00 38.53 kg/m2 Comm on [facility] oximetry 2021-04-02 15:20:00 97 % Commo n [facility] respiratory rate 2021-04-02 15:20:00 19 /min Common [facility] blood pressure systolic 2021-04-02 15:20:00 138 mm[Hg] [facility] blood pressure diastolic 2021-04-02 15:20:00 65 mm[Hg] Common [facility] height 2020-12-22 10:00:00 64.50 [in_i] Com [facility] weight 2020-12-22 10:00:00 220 [lb_av] Comm on [facility] bmi 2020-12-22 10:00:00 37.18 kg/m2 Comm on [facility] height 2020-12-13 12:20:00 64.50 [in_i] Com mon [facility] weight 2020-12-13 12:20:00 220 [lb_av] Comm on [facility] bmi 2020-12-13 12:20:00 37.18 kg/m2 Comm on [facility] Respiratory Rate 2024-04-21 14:17:00 16.00 /min Bo Nunn BP Systolic 2024-04-21 14:17:00 130 mm[Hg] Arie Nunn BP Diastolic 2024-04-21 14:17:00 71 mm[Hg] [place] [facility]unn Weight Measured 2024-04-21 14:17:00 228.40 pounds Bo Nunn Height Measured 2024-04-21 14:17:00 64.00 inches Bo Nunn Body Temperature 2024-04-21 14:17:00 97.50 degrees Bo Nunn Heart Rate 2024-04-21 14:17:00 84.00 /min Anneliese Nunn Procedures Procedure Date / Time Performed Performing Clinician Source US TRANSVAGINAL 2024-04-22 00:00:00 [facility] a Medical MAMMO, screening, digital, bilateral 2024-04-19 00:00:00 [facility] POCT HEMOGLOBIN A1C TEST 2024-01-13 19:08:00 Nahum Espana [facility] Repair of Umbilical Hernia 2024-01-01 00:00:00 [facility] LAB RESULTS ([facility]) 2023-11-03 18:48:45 Docto r Unassigned, [place]wood [facility] HB ECG ROUTINE & RHYTHM STRIP 2023-09-03 19:26:09 Tiesha Frost [facility] REFERRAL- REQUEST/RESPONSE 2023-08-04 13:13:39 D maxx Unassigned, [place]wood [facility] CT ABDOMEN W WO CONTRAST 2023-07-12 17:16:59 Nahum Espana [facility] HB CREATININE SERUM/BLOOD FOR IMAGING 2023-07-12 16:14:00 Teresa Espana [facility] REFERRAL- REQUEST/RESPONSE 2023-07-09 15:44:52 D octor Unassigned, [place]wood [facility] POCT HEMOGLOBIN A1C TEST 2023-07-08 20:35:00 Nahum Espana [facility] DIABETES TESTING REPORTS 2022-11-12 05:01:00 Doc tor Unassigned, Cawood [facility] REFERRAL- REQUEST/RESPONSE 2022-05-14 06:01:00 D octor Unassigned, [place]wood [facility] EXTERNAL PROVIDER RECORDS 2021-11-26 05:01:00 Do ctor Unassigned, Cawood [facility] Hysteroscopy 2018-03-10 00:00:00 [facility] (Gallbladder) 1996-03-10 00:00:00 [facility] Breast Reduction 1996-03-10 00:00:00 [facility] En[facility] Start Date/Time End Date/Time Encounter Type Admission Type Attending [facility] Facility Care Department Encounter ID Source 2023-09-05 15:25:00 Outpatient Gonzalez, Chayo STLMLC STLC [id number] [facility] 2023-07-30 13:58:00 Outpatient Gonzalez, Chayo STLMLC [facility] [id number] [facility] 2023-06-04 10:11:00 Outpatient Gonzalez, Chayo STLMLC STLC [id number] [facility] 2023-05-12 14:47:00 Outpatient Gonzalez, Chayo STLMLC STLMLC [id number] [facility] 2023-05-05 15:12:00 Outpatient Gonzalez, Chayo STLMLC STLMLC [id number] [facility] 2023-03-25 11:13:00 Outpatient Gonzalez, Chayo STLMLC STLC [id number] [facility] 2022-07-09 13:18:00 Outpatient Gonzalez, Chayo STLMLC STLC [id number] [facility] 2022-05-28 14:00:00 Outpatient Gonzalez, Chayo STLMLC STLC [id number] [facility] 2022-04-29 11:47:01 Outpatient Chayo Gonzalez STLMLC STLMLC [id number] [facility] 2022-04-11 11:02:01 Outpatient Chayo Gonzalez STLMLC STLMLC [id number] [facility] 2022-04-10 09:38:01 Outpatient Chayo Gonzalez STLMLC STLMLC [id number] [facility] 2022-04-04 15:02:00 Outpatient Chayo Gonzalez STLMLC STLMLC [id number] [facility] 2022-02-13 07:36:00 Outpatient Ruelas, Na STLMLC STLMLC [id number] [facility] 2022-01-17 11:35:01 Outpatient Ruelas, Na STLMLC STLMLC [id number] [facility] 2021-12-14 09:46:00 Outpatient Ruelas, Na STLMLC STLMLC [id number] [facility] 2021-10-16 15:14:01 Outpatient Ruelas, Na STLMLC STLMLC [id number] [facility] 2021-09-12 15:57:01 Outpatient Ruelas, Na STLMLC STLMLC [id number] [facility] 2021-09-11 10:21:01 Outpatient Ruelas, Na STLMLC STLMLC [id number] [facility] 2021-08-13 13:31:00 Outpatient Ruelas, Na STLMLC STLMLC [id number] [facility] 2021-05-18 11:01:01 Outpatient Ruelas, Na STLMLC STLMLC [id number] [facility] 2021-05-11 13:17:01 Outpatient Ruelas, Na STLMLC STLMLC [id number] [facility] 2021-05-10 09:35:00 Outpatient Ruelas, Na STLMLC STLMLC [id number] [facility] 2021-05-09 11:36:01 Outpatient Jessa Ruelas STLMLC STLMLC [id number] [facility] 2021-04-10 14:01:01 Outpatient Ruelas, Na STLMLC STLMLC [id number] [facility] 2021-04-04 14:35:57 Outpatient Ruelas, Na STLMLC STLMLC [id number] [facility] 2021-04-04 14:32:10 Outpatient Jessenia Na STLMLC STLMLC [id number] [facility] 2021-04-04 14:26:31 Outpatient Jessa Ruelas STLMLC STLMLC [id number] [facility] 2021-04-04 14:22:06 Outpatient Jessa Ruelas STLMLC STLMLC [id number] [facility] 2021-04-04 13:47:57 Outpatient Jessa Ruelas STLMLC STLMLC [id number] [facility] 2021-04-04 13:31:15 Outpatient Ruelas, Na STLMLC STLMLC [id number] [facility] 2021-04-04 13:17:49 Outpatient Ruelas, Na STLMLC STLMLC [id number] [facility] 2021-04-04 13:15:11 Outpatient Ruelas, Na STLMLC STLMLC [id number] [facility] 2021-04-04 12:56:33 Outpatient Ruelas, Na STLMLC STLMLC [id number] [facility] 2021-04-04 12:51:32 Outpatient Ruelas, Na STLMLC STLMLC [id number] [facility] 2021-04-04 12:45:45 Outpatient Ruelas, Na STLMLC STLMLC [id number] [facility] 2021-04-04 12:44:50 Outpatient Ruelas, Na STLMLC STLMLC [id number] [facility] 2021-04-04 12:26:48 Outpatient Ruelas, Na STLMLC STLMLC [id number] [facility] 2021-04-04 12:25:49 Outpatient Ruelas, Na STLMLC STLMLC [id number] [facility] 2021-04-04 12:12:47 Outpatient Ruelas, Na STLMLC STLMLC [id number] [facility] 2021-04-04 12:03:01 Outpatient Ruelas, Na STLMLC STLMLC [id number] [facility] 2021-04-04 12:02:32 Outpatient Ruelas, Na STLMLC STLMLC [id number] [facility] 2021-04-04 11:46:04 Outpatient Ruelas, Na STLMLC STLMLC [id number] [facility] 2021-04-04 11:45:14 Outpatient Ruelas, Na STLMLC STLMLC [id number] [facility] 2021-04-04 11:44:02 Outpatient Ruelas, Na STLMLC STLMLC [id number] [facility] 2021-04-04 11:26:10 Outpatient Ruelas, Na STLMLC STLMLC [id number] [facility] 2021-04-04 11:25:37 Outpatient Ruelas, Na STLMLC STLMLC [id number] [facility] 2021-04-04 11:02:45 Outpatient Ruelas, Na STLMLC STLMLC [id number] [facility] 2020-04-11 11:00:00 Inpatient Luis Fong [facility] DAYS [id number] [facility] 2020-03-07 14:40:00 Inpatient Luis Fnog [facility] DAYS [id number] [facility] 2024-06-09 00:00:00 2024-06-09 00:00:00 (TEL) STLMLC STLMLC [id number] [facility] 2024-06-02 00:00:00 2024-06-03 11:19:30 [facility] 1.2.840.114 350.1.13.10 4.2.7.2.686 [id number] [facility] 2024-06-02 00:00:00 2024-06-02 00:00:00 (TEL) STLMLC STLMLC [id number] [facility] 2024-05-31 00:00:00 2024-05-31 00:00:00 (TEL) STLMLC STLMLC [id number] [facility] 2024-05-12 00:00:00 2024-05-12 16:18:32 Telephone Damon [facility] 1.2.840.114 350.1.13.10 4.2.7.2.686 [id number] [facility] 2024-05-12 00:00:00 2024-05-12 00:00:00 OFFICE VISIT ESTAB PT LEVEL 4 STLMLC STLMLC [id number] [facility] 2024-05-12 00:00:00 2024-05-12 00:00:00 (TEL) STLMLC STLMLC [id number] [facility] 2024-05-06 00:00:00 2024-05-06 00:00:00 ALEJANDRO Bales: [address], [place] [address] , Ph. [facility] - GC_GCBZW_Marilia Wan* [id number] [facility] 2024-04-27 00:00:00 2024-04-27 00:00:00 [facility]TEL) [facility] [id number] 2023-08-04 00:00:00 2024-04-24 07:41:23 Orders Only Doctor Unassigned, [place] Doctor Unassigned, Cawood [facility] 1.2.840.114 350.1.13.10 4.2.7.2.686 [id number] [facility] 2023-11-03 00:00:00 2024-04-24 07:04:16 Orders Only Doctor Unassigned, [place] Doctor Unassigned, Cawood [facility] 1.2.840.114 350.1.13.10 4.2.7.2.686 [id number] [facility] 2023-07-09 00:00:00 2024-04-24 02:07:22 Orders Only Doctor Unassigned, [place] Doctor Unassigned, Cawood [facility] 1.2.840.114 350.1.13.10 4.2.7.2.686 [id number] [facility] 2024-04-22 00:00:00 2024-04-22 00:00:00 Sulma Soriano MD: [address], [address], [place] [address] , Ph. [facility] - GC_GCBZW_Marilia Wan* [id number] [facility] 2024-04-21 14:06:53 2024-04-21 14:06:53 Outpatient [facility] [id number] Bo Nunn 2024-04-21 00:00:00 2024-04-21 00:00:00 Outpatient Visit [facility]NA[facility] [id number] Bo Nunn 2024-04-21 00:00:00 2024-04-21 00:00:00 (TEL) [facility] [id number] [facility] 2024-04-21 00:00:00 2024-04-21 00:00:00 OFFICE VISIT ESTAB PT LEVEL 3 [facility] [id number] [facility] 2024-04-19 00:00:00 2024-04-19 00:00:00 PALLAVI Nelson: [address] [place] [address] [address], [address] [address], [place] [address] , Ph. [facility] - GC_GCBZW_[place] [facility]* [id number] [facility] 2024-03-31 00:00:00 2024-04-01 14:30:49 Refill [facility] 1.2.840.114 350.1.13.10 4.2.7.2.686 [id number] [facility] 2024-03-24 00:00:00 2024-03-24 00:00:00 [facility] [id number] 2024-03-18 00:00:00 2024-03-19 08:16:28 Refill [facility] 1.2.840.114 350.1.13.10 4.2.7.2.686 [id number] [facility] 2024-03-11 00:00:00 2024-03-11 00:00:00 [facility]AL [facility] [id number] [facility] 2024-03-11 00:00:00 2024-03-11 00:00:00 OFFICE VISIT ESTAB PT LEVEL 4 STLMLC STLMLC [id number] [facility] 2024-02-11 00:00:00 2024-02-11 00:00:00 ALEJANDRO Arevalo: [address], [address], [place] [address] , Ph. [facility]GCBZW_[place]* [id number] [facility] 2024-02-09 00:00:00 2024-02-09 00:00:00 OFFICE VISIT ESTAB PT LEVEL 4 STLMLC STLMLC [id number] [facility] 2024-02-07 00:00:00 2024-02-07 00:00:00 (TEL) STLMLC STLMLC [id number] [facility] 2024-01-22 00:00:00 2024-01-22 00:00:00 ALEJANDRO Bales: [address], [place] [address] , Ph. [facility] - GC_GCBZW_[place]* [id number] [facility] 2024-01-13 14:00:00 2024-01-13 15:41:38 Senior Product Designer Visit Lab, Ang - Db Teresa Espana Lab, Ang - Db [facility] 1..840.114 350.1.13.10 4.2.7.2.686 [id number] [facility] 2024-01-13 13:00:00 2024-01-13 13:48:19 Outpatient R TERESA ESPANA [facility] [id number] [facility] 2024-01-13 13:00:00 2024-01-13 13:48:19 Office Visit Teresa Espana [facility] 1..840.114 350.1.13.10 4.2.7.2.686 [id number] [facility] 2023-12-27 00:00:00 2023-12-29 08:10:31 Refill Damon [facility] 1.2.840.114 350.1.13.10 4.2.7.2.686 [id number] [facility] 2023-12-25 00:00:00 2023-12-25 00:00:00 (TEL) STLMLC STLMLC [id number] [facility] 2023-12-16 00:00:00 2023-12-16 00:00:00 (INJ) Injection STLMLC STLMLC [id number] [facility] 2023-12-11 00:00:00 2023-12-15 10:50:39 Refill Damon [facility] 1.2.840.114 350.1.13.10 4.2.7.2.686 [id number] [facility] 2023-12-05 00:00:00 2023-12-08 10:54:19 Refill Damon [facility] 1.2.840.114 350.1.13.10 4.2.7.2.686 [id number] [facility] 2023-10-31 00:00:00 2023-10-31 00:00:00 OFFICE VISIT ESTAB PT LEVEL 4 STLMLC STLMLC [id number] [facility] 2023-10-20 00:00:00 2023-10-23 10:02:33 Telephone Espana [facility] 1.2.840.114 350.1.13.10 4.2.7.2.686 [id number] [facility] 2023-10-09 00:00:00 2023-10-21 15:50:[address] [facility] 1.2.840.114 350.1.13.10 4.2.7.2.686 [id number] [facility] 2023-10-21 00:00:00 2023-10-21 00:00:00 (TEL) STLMLC STLMLC [id number] [facility] 2023-10-20 00:00:00 2023-10-20 00:00:00 (TEL) STLMLC STLMLC [id number] [facility] 2023-10-08 00:00:00 2023-10-08 00:00:00 (TEL) STLMLC STLMLC [id number] [facility] 2023-10-06 00:00:00 2023-10-06 00:00:00 OFFICE VISIT ESTAB PT LEVEL 3 STLMLC STLMLC [id number] [facility] 2023-09-11 00:00:00 2023-09-18 10:53:19 Patient Secure Msg Sl[facility] 1.2.840.114 350.1.13.10 4.2.7.2.686 [id number] [facility] 2023-09-03 14:00:00 2023-09-03 15:17:18 [id number] 2023-09-03 14:00:00 2023-09-03 15:17:18 Office Visit [facility] 1.2.840.114 350.1.13.10 4.2.7.2.686 [id number] [facility] 2023-08-26 12:00:00 2023-08-26 12:00:00 Outpatient R TERESA ESPANA [facility] [id number] [facility] 2023-07-11 00:00:00 2023-08-16 18:04:46 Patient Secure Msg Doctor Unassigned, [place] [facility] [id number] [facility] 2023-07-31 00:00:00 2023-07-31 00:00:00 (TEL) [facility] ST[facility]MLC [id number] [facility] 2023-07-30 00:00:00 2023-07-30 00:00:00 OFFICE VISIT ESTAB PT LEVEL 4 [facility] STLMLC [id number] [facility] 2023-07-30 00:00:00 2023-07-30 00:00:00 (TEL) STLMLC STLMLC [id number] [facility] 2023-07-30 00:00:00 2023-07-30 00:00:00 (TEL) STLMLC STLMLC [id number] [facility] 2023-07-29 12:00:00 2023-07-29 12:15:00 Senior Product Designer Visit Lab, Navin [place] [facility] 1.2.840.114 350.1.13.10 4.2.7.2.686 [id number] [facility] 2023-07-29 12:00:00 2023-07-29 11:01:43 Outpatient R DAMON [facility] [id number] [facility] 2023-07-23 00:00:00 2023-07-24 12:12:21 Telephone Damon [facility] 1.2.840.114 350.1.13.10 4.2.7.2.686 [id number] [facility] 2023-07-17 12:45:00 2023-07-17 13:00:00 Senior Product Designer Visit Lab, Ang - Db [place], [facility] 1.2.840.114 350.1.13.10 4.2.7.2.686 [id number] [facility] 2023-07-17 12:45:00 2023-07-17 12:45:00 Outpatient R [facility] [id number] [facility] 2023-07-14 00:00:00 2023-07-14 00:00:00 (TEL) STLMLC STLMLC [id number] [facility] 2023-07-12 10:40:02 2023-07-12 23:59:00 Outpatient R [facility] [id number] [facility] 2023-07-12 10:40:02 2023-07-12 23:59:00 Hospital Encounter Damon [facility] 1.2.840.114 350.1.13.10 4.2.7.2.686 [id number] [facility] 2023-07-08 11:30:00 2023-07-08 12:29:51 Outpatient R [facility] [id number] [facility] 2023-07-08 11:30:00 2023-07-08 12:29:51 Office Visit Damon [facility] 1.2.840.114 350.1.13.10 4.2.7.2.686 [id number] [facility] 2023-07-07 00:00:00 2023-07-07 00:00:00 (TEL) STLMLC STLMLC [id number] [facility] 2023-06-30 00:00:00 2023-06-30 00:00:00 (F/U) Follow Up Visit STLMLC STLMLC [id number] [facility] 2023-06-13 16:30:00 2023-06-13 16:30:00 Outpatient SAFIA MEEK [facility] [id number] [facility] 2023-06-03 00:00:00 2023-06-03 00:00:00 (TEL) STLMLC STLMLC [id number] [facility] 2023-05-27 00:00:00 2023-05-27 00:00:00 (TEL) STLMLC STLMLC [id number] [facility] 2023-05-16 00:00:00 2023-05-16 00:00:00 (TEL) STLMLC STLMLC [id number] [facility] 2023-05-15 00:00:00 2023-05-15 00:00:00 (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 STLMLC STLMLC [id number] [facility] 2023-05-07 00:00:00 2023-05-07 00:00:00 (TEL) STLMLC STLMLC [id number] [facility] 2023-05-02 00:00:00 2023-05-02 00:00:00 (TEL) STLMLC STLMLC [id number] [facility] 2023-04-30 00:00:00 2023-04-30 00:00:00 (TEL) STLMLC STLMLC [id number] [facility] 2023-04-21 00:00:00 2023-04-21 00:00:00 OFFICE VISIT ESTAB PT LEVEL 4 STLMLC STLMLC [id number] [facility] 2023-04-21 00:00:00 2023-04-21 00:00:00 SUB ANNUAL [facility] WELLNESS VISIT STLMLC STLMLC [id number] [facility] 2023-04-18 00:00:00 2023-04-18 00:00:00 Outpatient GC_GCBZW_Ka toñoyala_S [facility] [id number] [facility] 2023-04-16 00:00:00 2023-04-16 00:00:00 Refill [place], [facility] 1.2.840.114 350.1.13.10 4.2.7.2.686 [id number] [facility] 2023-04-09 00:00:00 2023-04-09 00:00:00 Telephone [facility] 1.2.840.114 350.1.13.10 4.2.7.2.686 [id number] 220 [id number] [facility] 2023-04-03 00:00:00 2023-04-03 00:00:00 (TEL) STLMLC STLMLC [id number] [facility] 2023-03-23 00:00:00 2023-03-23 00:00:00 (WEB) STLMLC STLMLC [id number] [facility] 2023-03-21 00:00:00 2023-03-21 00:00:00 (TEL) STLMLC STLMLC [id number] [facility] 2023-03-18 13:30:00 2023-03-18 13:30:00 Outpatient R [facility] [id number] [facility] 2023-03-04 00:00:00 2023-03-04 00:00:00 (TEL) STLMLC STLMLC [id number] [facility] 2023-02-19 00:00:00 2023-02-19 00:00:00 Refill Damon [facility] 1.2.840.114 350.1.13.10 4.2.7.2.686 [id number] [facility] 2023-02-07 00:00:00 2023-02-07 00:00:00 OFFICE VISIT ESTAB PT LEVEL 4 STLMLC STLMLC [id number] [facility] 2023-01-30 00:00:00 2023-01-30 00:00:00 Refill Teresa [place] [facility] 1.2.840.114 350.1.13.10 4.2.7.2.686 [id number] [facility] 2023-01-08 00:00:00 2023-01-08 00:00:00 OFFICE VISIT ESTAB PT LEVEL 4 STLMLC STLMLC [id number] [facility] 2023-01-06 00:00:00 2023-01-06 00:00:00 (TEL) STLMLC STLMLC [id number] [facility] 2022-12-23 00:00:00 2022-12-23 00:00:00 Refill Damon [facility] 1.2.840.114 350.1.13.10 4.2.7.2.686 [id number] 220 [id number] [facility] 2022-12-23 00:00:00 2022-12-23 00:00:00 (TEL) STLMLC STLMLC [id number] [facility] 2022-11-22 00:00:00 2022-11-22 00:00:00 Outpatient GC_GCBZW_Ka diyala_S PRIV PRIV [id number] [facility] 2022-11-15 00:00:00 2022-11-15 00:00:00 Outpatient GC_GCBZW_Ka diyala_S PRIV PRIV [id number] [facility] 2022-11-14 00:00:00 2022-11-14 00:00:00 (TEL) STLC STLC [id number] [facility] 2022-11-12 11:30:00 2022-11-12 15:15:39 Outpatient R [facility] [id number] [facility] 2022-11-12 11:30:00 2022-11-12 15:15:39 Office Visit Damon [facility] 1.2.840.114 350.1.13.10 4.2.7.2.686 [id number] 220 [id number] [facility] 2022-11-12 00:00:00 2022-11-12 00:00:00 Outpatient GC_GCBZW_Ka diyala_S PRIV PRIV [id number] [facility] 2022-11-12 00:00:00 2022-11-12 00:00:00 Orders Only Doctor Unassigned, [place] [facility] 1.2.840.114 350.1.13.10 4.2.7.2.686 [id number] [facility] 2022-11-08 00:00:00 2022-11-08 00:00:00 Outpatient GC_GCBZW_Ka diyala_S PRIV PRIV [id number] [facility] 2022-11-08 00:00:00 2022-11-08 00:00:00 (TEL) STLMLC STLMLC [id number] [facility] 2022-10-14 00:00:00 2022-10-14 00:00:00 (TEL) STLMLC STLMLC [id number] [facility] 2022-09-02 00:00:00 2022-09-02 00:00:00 (TEL) STLMLC STLMLC [id number] [facility] 2022-07-29 00:00:00 2022-07-29 00:00:00 Patient Secure Msg Doctor Unassigned, [place] [facility] 1.2.840.114 350.1.13.10 4.2.7.2.686 [id number] [facility] 2022-07-16 00:00:00 2022-07-16 00:00:00 (TEL) STLMLC STLMLC [id number] [facility] 2022-07-10 00:00:00 2022-07-10 00:00:00 OFFICE VISIT ESTAB PT LEVEL 4 [facility] [id number] 2022-07-10 00:00:00 2022-07-10 00:00:00 SUB ANNUAL [facility] WELLNESS VISIT STLC STLC [id number] [facility] 2022-05-28 00:00:00 2022-05-28 00:00:00 (TEL) STLC STLC [id number] [facility] 2022-05-16 15:30:00 2022-05-16 15:45:00 Senior Product Designer Visit Lab, [place]in [place] [facility] 1..840.114 350.1.13.10 4.2.7.2.686 [id number] [facility] 2022-05-16 15:30:00 2022-05-16 15:30:00 Outpatient R [facility]ON [facility] [id number] [facility] 2022-05-15 00:00:00 2022-05-15 00:00:00 [id number] 2022-05-14 13:45:00 2022-05-14 14:00:00 Senior Product Designer Visit Lab, [place] [facility] 1.2.840.114 350.1.13.10 4.2.7.2.686 [id number] [facility] 2022-05-14 13:00:00 2022-05-14 13:39:09 Outpatient R [facility] [id number] [facility] 2022-05-14 13:00:00 2022-05-14 13:39:09 Office Visit Damon [facility] 1.2.840.114 350.1.13.10 4.2.7.2.686 [id number] [facility] 2022-05-14 00:00:00 2022-05-14 00:00:00 Telephone [facility] 1.2840.114 350.1.13.10 4.2.7.2.686 [id number] [facility] 2022-05-14 00:00:00 2022-05-14 00:00:00 Orders Only Doctor Unassigned, [place] [facility] 1.840.114 350.1.13.10 4.2.7.2.686 [id number] [facility] 2022-04-25 00:00:00 2022-04-25 00:00:00 (TEL) STLMLC STLMLC [id number] [facility] 2022-04-22 00:00:00 2022-04-22 00:00:00 (TEL) STLMLC STLMLC [id number] [facility] 2022-04-11 00:00:00 2022-04-11 00:00:00 OFFICE VISIT ESTAB PT LEVEL 4 STLMLC STLMLC [id number] [facility] 2022-04-09 11:30:00 2022-04-09 11:30:00 Outpatient R [facility]ON [facility] [id number] [facility] 2022-04-08 00:00:00 2022-04-08 00:00:00 Telephone Damon [facility] 1.840.114 350.1.13.10 4.2.7.2.686 [id number] 220 [id number] [facility] 2022-03-27 00:00:00 2022-03-27 00:00:00 Refill Damon [facility] 1.2840.114 350.1.13.10 4.2.7.2.686 [id number] 220 [id number] [facility] 2022-03-20 00:00:00 2022-03-20 00:00:00 Refill Damon [facility] 1..840.114 350.1.13.10 4.2.7.2.686 [id number] 220 [id number] [facility] 2022-03-17 00:00:00 2022-03-17 00:00:00 Refill Damon [facility] 1..840.114 350.1.13.10 4.2.7.2.686 [id number] [facility] 2022-03-08 00:00:00 2022-03-08 00:00:00 Patient Secure [facility] [place] [facility] 1.840.114 350.1.13.10 4.2.7.2.686 [id number] [facility] 2022-02-20 00:00:00 2022-02-20 00:00:00 (TEL) STLMLC STLMLC [id number] [facility] 2022-02-14 00:00:00 2022-02-14 00:00:00 OFFICE VISIT EST PT LEVEL 3 STLMLC STLMLC [id number] [facility] 2022-01-27 00:00:00 2022-01-27 00:00:00 (WEB) STLMLC STLMLC [id number] [facility] 2022-01-25 00:00:00 2022-01-25 00:00:00 Patient Secure [facility] 1.840.114 350.1.13.10 4.2.7.2.686 [id number] [facility] 2022-01-24 00:00:00 2022-01-24 00:00:00 (WEB) STLMLC STLMLC [id number] [facility] 2022-01-21 00:00:00 2022-01-21 00:00:00 OL MATTHEW E/M SVC 11-20 MIN STLMLC STLMLC [id number] [facility] 2022-01-09 00:00:00 2022-01-09 00:00:00 (TEL) STLMLC STLMLC [id number] [facility] 2021-12-20 00:00:00 2021-12-20 00:00:00 (WEB) STLMLC STLMLC [id number] [facility] 2021-11-26 00:00:00 2021-11-26 00:00:00 Orders Only Doctor Unassigned, [place] [facility] 1.2.840.114 350.1.13.10 4.2.7.2.686 [id number] [facility] 2021-11-15 00:00:00 2021-11-15 00:00:00 OFFICE VISIT EST PT LEVEL 3 STLMLC STLMLC [id number] [facility] 2021-10-30 12:00:00 2021-10-30 12:53:55 Outpatient R [facility]ON [facility] [id number] [facility] 2021-10-30 12:00:00 2021-10-30 12:53:55 Office Visit Damon [facility] 1..840.114 350.1.13.10 4.2.7.2.686 [id number] [facility] 2021-10-23 00:00:00 2021-10-23 00:00:00 (TEL) STLMLC STLMLC [id number] [facility] 2021-10-20 00:00:00 2021-10-20 00:00:00 (TEL) STLMLC STLMLC [id number] [facility] 2021-10-18 00:00:00 2021-10-18 00:00:00 OFFICE VISIT EST PT LEVEL 3 STLMLC STLMLC [id number] [facility] 2021-09-13 00:00:00 2021-09-13 00:00:00 OFFICE VISIT EST PT LEVEL 3 STLMLC STLMLC [id number] [facility] 2021-08-31 00:00:00 2021-08-31 00:00:00 (TEL) STLMLC STLMLC [id number] [facility] 2021-08-14 00:00:00 2021-08-14 00:00:00 OFFICE VISIT EST PT LEVEL 3 STLMLC STLMLC [id number] [facility] 2021-08-10 00:00:00 2021-08-10 00:00:00 Patient Secure MsTeresa Olvera [facility] 1.2.840.114 350.1.13.10 4.2.7.2.686 [id number] [facility] 2021-08-08 00:00:00 2021-08-08 00:00:00 (TEL) STLMLC STLMLC [id number] [facility] 2021-08-03 00:00:00 2021-08-03 00:00:00 (TEL) STLMLC STLMLC [id number] [facility] 2021-06-05 00:00:00 2021-06-05 00:00:00 OFFICE VISIT NEW PT LEVEL 4 STLMLC STLMLC [id number] [facility] 2021-05-30 00:00:00 2021-05-30 00:00:00 (TEL) STLMLC STLMLC [id number] [facility] 2021-05-21 14:28:47 2021-05-21 23:59:00 Outpatient R TERESA ESPANA [facility] [id number] [facility] 2021-05-21 14:00:00 2021-05-21 23:59:00 Hospital Encounter Teresa [place] [facility] 1.2.840.114 350.1.13.10 4.2.7.2.686 [id number] [facility] 2021-05-14 00:00:00 2021-05-14 00:00:00 Outpatient R ESPANA [facility] [id number] [facility] 2021-05-11 00:00:00 2021-05-11 00:00:00 SUB ANNUAL [facility] WELLNESS VISIT STLMLC STLMLC [id number] [facility] 2021-05-11 00:00:00 2021-05-11 00:00:00 OFFICE VISIT EST PT LEVEL 3 STLMLC STLMLC [id number] [facility] 2021-05-10 00:00:00 2021-05-10 00:00:00 (TEL) STLMLC STLMLC [id number] [facility] 2021-05-07 14:30:00 2021-05-07 14:30:00 Outpatient R DAMON [facility] [id number] [facility] 2021-05-01 11:30:00 2021-05-01 12:27:00 Outpatient R DAMON [facility] [id number] [facility] 2021-04-24 10:30:00 2021-04-24 11:00:00 [facility] 1.2.840.114 350.1.13.10 4.2.7.2.686 [id number] [facility] 2021-04-24 10:30:00 2021-04-24 10:30:00 Outpatient R DAMON [facility] [id number] [facility] 2021-04-09 00:00:00 2021-04-09 00:00:00 (TEL) STLMLC STLMLC [id number] [facility] 2021-04-02 00:00:00 2021-04-02 00:00:00 OFFICE VISIT EST PT LEVEL 3 STLMLC STLMLC [id number] [facility] 2021-03-15 00:00:00 2021-03-15 00:00:00 (TEL) STLMLC STLMLC [id number] [facility] 2021-03-15 00:00:00 2021-03-15 00:00:00 (TEL) STLMLC STLMLC [id number] [facility] 2021-02-14 00:00:00 2021-02-14 00:00:00 (TEL) STLMLC STLMLC [id number] [facility] 2021-02-06 00:00:00 2021-02-06 00:00:00 (TEL) STLMLC STLMLC [id number] [facility] 2021-01-10 00:00:00 2021-01-10 00:00:00 OL DIG E/M SVC 11-20 MIN STLMLC STLMLC [id number] [facility] 2021-01-01 00:00:00 2021-01-01 00:00:00 (INJ) Injection STLMLC STLMLC [id number] [facility] 2021-01-01 00:00:00 2021-01-01 00:00:00 (TEL) STLMLC STLMLC [id number] [facility] 2020-12-27 00:00:00 2020-12-27 00:00:00 (TEL) STLMLC STLMLC [id number] [facility] 2020-12-22 00:00:00 2020-12-22 00:00:00 OFFICE VISIT EST PT LEVEL 3 STLMLC STLMLC [id number] [facility] 2020-12-22 00:00:00 2020-12-22 00:00:00 (TEL) STLMLC STLMLC [id number] [facility] 2020-12-22 00:00:00 2020-12-22 00:00:00 (TEL) STLMLC STLMLC [id number] [facility] 2020-12-13 00:00:00 2020-12-13 00:00:00 OFFICE VISIT ESTAB PT LEVEL 3 STLMLC STLMLC [id number] [facility] 2020-12-01 00:00:00 2020-12-01 00:00:00 (TEL) STLMLC STLMLC [id number] [facility] 2020-10-24 00:00:00 2020-10-24 00:00:00 Outpatient STLMLC STLMLC [id number] [facility] 2020-08-02 00:00:00 2020-08-02 00:00:00 Outpatient STLMLC STLMLC [id number] [facility] 2020-07-05 00:00:00 2020-07-05 00:00:00 Outpatient STLMLC STLMLC [id number] [facility] 2020-06-20 00:00:00 2020-06-20 00:00:00 Outpatient STLMLC STLMLC [id number] [facility] 2020-06-20 00:00:00 2020-06-20 00:00:00 Outpatient STLMLC STLMLC [id number] [facility] 2020-06-15 00:00:00 2020-06-15 00:00:00 Outpatient STLMLC STLMLC [id number] [facility] 2020-06-06 00:00:00 2020-06-06 00:00:00 Outpatient STLMLC STLMLC [id number] [facility] 2020-06-05 00:00:00 2020-06-05 00:00:00 Outpatient STLMLC STLMLC [id number] [facility] 2020-05-29 00:00:00 2020-05-29 00:00:00 Outpatient STLMLC STLMLC [id number] [facility] 2020-05-09 00:00:00 2020-05-09 00:00:00 Outpatient STLMLC STLMLC [id number] [facility] 2020-05-05 00:00:00 2020-05-05 00:00:00 Outpatient STLMLC STLMLC [id number] [facility] 2020-04-19 00:00:00 2020-04-19 00:00:00 Outpatient STLMLC STLMLC [id number] [facility] 2020-04-07 00:00:00 2020-04-07 00:00:00 Outpatient STLMLC STLMLC [id number] [facility] 2020-03-28 00:00:00 2020-03-28 00:00:00 Outpatient STLMLC STLMLC [id number] [facility] 2020-02-24 00:00:00 2020-02-24 00:00:00 Outpatient STLMLC STLMLC [id number] [facility] 2020-02-22 00:00:00 2020-02-22 00:00:00 Outpatient STLMLC STLMLC [id number] [facility] 2020-01-14 00:00:00 2020-01-14 00:00:00 Outpatient STLMLC STLMLC [id number] [facility] 2019-11-23 11:00:00 2019-11-23 11:00:00 [place] [facility] [id number] [facility] 2019-11-16 09:52:00 2019-11-16 09:52:00 [place] [facility] Family [facility] [id number] [facility] 2019-08-30 08:49:00 2019-08-30 08:49:00 [facility] [facility] [facility] [id number] [facility] 2019-08-18 09:40:00 2019-08-18 09:40:00 [place] [facility] [address] [facility] Medicine [id number] [facility] 2019-08-10 14:31:00 2019-08-10 14:31:00 [facility] [facility] [facility] [address] [facility] [id number] [facility] 2019-08-07 07:31:00 2019-08-07 07:31:00 [place] [address] [facility] [id number] [facility] 2019-08-06 09:20:00 2019-08-06 09:20:00 [facility] [address] [facility] [id number] [facility] 2019-04-30 16:02:00 2019-04-30 16:02:00 [place] [facility] [address] [facility] [id number] [facility] 2019-04-15 10:26:00 2019-04-15 10:26:00 [place] [facility] [id number] [facility] 2019-04-12 09:27:00 2019-04-12 09:27:00 [place] [facility] [id number] [facility] 2019-04-02 08:40:00 2019-04-02 08:40:00 [place] [facility] [id number] [facility] 2019-04-01 11:20:00 2019-04-01 11:20:00 [facility] [place] [facility] [place] [facility] [id number] [facility] Results Test Description Test Time Test Comments Results Result Co mments Source igp, apt HPV,rfx 16/18,[id number] 00:00:00* Test Item Value Reference Range Interpretation Comme nts diagnosis: (test code = diagnosis:) COMMENT specimen adequacy: (test cod e = specimen adequacy:) COMMENT performed by: (test code = p erformed by:) COMMENT note: (test code = note:) COMMENT test methodology: (test code = test methodology:) COMMENT HPV aptima (test code = HPV aptima) NEGATIVE negative [facility] [id number] 00:00:00* Test Item Value Reference Range Interpretation Comme nts A1C (test code = 4548-4) 8.1 REFLEXED [id number] 00:00:00* Test Item Value Reference Range Interpretation Comme nts NUCLEATED RBCS (test code = 16715-9) 0.0 /100 WBC'S See_Comment [Automated message] The system which generated this result transmitted reference range: 0.0 /100 WBC'S. The reference range was not used to interpret this result as normal/abnormal. ABSOLUTE EOSINOPHILS (test code = 33724-1) 0.06 K/UL See_Comment [Automated message] The system which generated this result transmitted reference range: 0.00-0.50 K/UL. The reference range was not used to interpret this result as normal/abnormal. ABSOLUTE LYMPHOCYTES (test code = 56673-6) 1.19 K/UL See_Comment [Automated message] The system which generated this result transmitted reference range: 1.00-4.00 K/UL. The reference range was not used to interpret this result as normal/abnormal. ABSOLUTE MONOCYTES (test code = 58091-2) 0.37 K/UL See_Comment [Automated message] The system which generated this result transmitted reference range: 0.20-1.00 K/UL. The reference range was not used to interpret this result as normal/abnormal. ABSOLUTE NEUTROPHILS (test code = 49264-4) 10.19 K/UL See_Comment H [Automated message] The system which generated this result transmitted reference range: 1.50-7.50 K/UL. The reference range was not used to interpret this result as normal/abnormal. BASOPHILS (test code = 33585-1) 0.4 % EOSINOPHILS (test code = 79216-1) 0.5 % HEMATOCRIT (test code = 00896-0) 42.0 % See_Comment [Automated messa ge] The system which generated this result transmitted reference range: 34.0-45.0 %. The reference range was not used to interpret this result as normal/abnormal. HEMOGLOBIN (test code = 718-7) 13.6 G/DL See_Comment [Automated messa ge] The system which generated this result transmitted reference range: 11.5-15.5 G/DL. The reference range was not used to interpret this result as normal/abnormal. LYMPHOCYTES (test code = 53402-0) 10.0 % MCH (test code = 23359-6) 30.7 PG See_Comment [Automated messa ge] The system which generated this result transmitted reference range: 25.0-33.0 PG. The reference range was not used to interpret this result as normal/abnormal. MCHC (test code = 32445-5) 32.4 G/DL See_Comment [Automated messa ge] The system which generated this result transmitted reference range: 31.0-36.0 G/DL. The reference range was not used to interpret this result as normal/abnormal. MCV (test code = 45222-7) 94.8 fL See_Comment [Automated messa ge] The system which generated this result transmitted reference range: 80.0-99.0 fL. The reference range was not used to interpret this result as normal/abnormal. MONOCYTES (test code = 88690-4) 3.1 % NEUTROPHILS (test code = 85607-4) 85.7 % PLATELET COUNT (test code = 98523-7) 265 K/UL See_Comment [Automated messa ge] The system which generated this result transmitted reference range: 130-400 K/UL. The reference range was not used to interpret this result as normal/abnormal. RBC (test code = 66538-4) 4.43 M/UL See_Comment [Automated messa ge] The system which generated this result transmitted reference range: 3.80-5.40 M/UL. The reference range was not used to interpret this result as normal/abnormal. RDW (test code = 32378-8) 12.8 % See_Comment [Automated messa ge] The system which generated this result transmitted reference range: 11.5-15.0 %. The reference range was not used to interpret this result as normal/abnormal. WBC (test code = 97283-6) 11.9 K/UL See_Comment H [Automated messa ge] The system which generated this result transmitted reference range: 3.5-11.0 K/UL. The reference range was not used to interpret this result as normal/abnormal. HEMOGLOBIN A1c (test code = 4548-4) 9.7 % See_Comment H [Automated messa ge] The system which generated this result transmitted reference range: 4.2-5.6 %. The reference range was not used to interpret this result as normal/abnormal. CALC LDL CHOL (test code = 24982-5) (NOTE) MG/DL See_Comment [Automated messa ge] The system which generated this result transmitted reference range: <100 MG/DL. The reference range was not used to interpret this result as normal/abnormal. CHOLESTEROL (test code = 2093-3) 177 MG/DL See_Comment [Automated messa ge] The system which generated this result transmitted reference range: <200 MG/DL. The reference range was not used to interpret this result as normal/abnormal. HDL CHOLESTEROL (test code = 2085-9) 51 MG/DL See_Comment [Automated messa ge] The system which generated this result transmitted reference range: >39 MG/DL. The reference range was not used to interpret this result as normal/abnormal. RISK RATIO LDL/HDL (test code = 21094-4) (NOTE) RATIO See_Comment [Automated message] The system which generated this result transmitted reference range: <3.22 RATIO. The reference range was not used to interpret this result as normal/abnormal. TRIGLYCERIDES (test code = 2571-8) 445 MG/DL See_Comment H [Automated messa ge] The system which generated this result transmitted reference range: <150 MG/DL. The reference range was not used to interpret this result as normal/abnormal. FREE T4 (THYROXINE) (test code = 3024-7) 1.65 NG/DL See_Comment [Automated message] The system which generated this result transmitted reference range: 0.80-1.90 NG/DL. The reference range was not used to interpret this result as normal/abnormal. TSH, THIRD GENERATION (test code = 59237-1) 3.440 UIU/ML See_Comment [Automated message] The system which generated this result transmitted reference range: 0.400-4.100 UIU/ML. The reference range was not used to interpret this result as normal/abnormal. ALBUMIN, URINE, RANDOM (test code = 67277-5) 8.1 MG/DL NOT ESTAB MG/DL CALC ALBUMIN/CREAT, RND (test code = 67459-1) 321 MG/G See_Comment H [Automated messa ge] The system which generated this result transmitted reference range: <30 MG/G. The reference range was not used to interpret this result as normal/abnormal. CREATININE, URINE, CONC. (test code = 2161-8) 25.2 MG/DL NOT ESTAB MG/DL ALBUMIN (test code = 1751-7) 4.1 G/DL See_Comment [Automated messa ge] The system which generated this result transmitted reference range: 3.5-5.2 G/DL. The reference range was not used to interpret this result as normal/abnormal. ALKALINE PHOSPHATASE (test code = 6768-6) 139 U/L See_Comment H [Automated message] The system which generated this result transmitted reference range: 40-136 U/L. The reference range was not used to interpret this result as normal/abnormal. BILIRUBIN, TOTAL (test code = 1975-2) 0.3 MG/DL See_Comment [Automated messa ge] The system which generated this result transmitted reference range: <=1.2 MG/DL. The reference range was not used to interpret this result as normal/abnormal. BUN (test code = 3094-0) 13 MG/DL See_Comment [Automated messa ge] The system which generated this result transmitted reference range: 6-20 MG/DL. The reference range was not used to interpret this result as normal/abnormal. CALCIUM (test code = 10393-2) 10.4 MG/DL See_Comment [Automated OTC PR Groupa ge] The system which generated this result transmitted reference range: 8.5-10.5 MG/DL. The reference range was not used to interpret this result as normal/abnormal. CALC A/G RATIO (test code = 1759-0) 1.6 RATIO See_Comment [Automated OTC PR Groupa ge] The system which generated this result transmitted reference range: 1.0-2.6 RATIO. The reference range was not used to interpret this result as normal/abnormal. CALC BUN/CREAT (test code = 3097-3) 16 RATIO See_Comment [Automated messa ge] The system which generated this result transmitted reference range: 6-28 RATIO. The reference range was not used to interpret this result as normal/abnormal. CALC GLOBULIN (test code = 89798-9) 2.6 G/DL See_Comment [Automated OTC PR Groupa ge] The system which generated this result transmitted reference range: 1.9-3.7 G/DL. The reference range was not used to interpret this result as normal/abnormal. CARBON DIOXIDE (test code = 1962-8) 27 MEQ/L See_Comment [Automated messa ge] The system which generated this result transmitted reference range: 19-31 MEQ/L. The reference range was not used to interpret this result as normal/abnormal. CHLORIDE (test code = 5-0) 93 MEQ/L See_Comment L [Automated messa ge] The system which generated this result transmitted reference range: 95-107 MEQ/L. The reference range was not used to interpret this result as normal/abnormal. CREATININE (test code = 2160-0) 0.80 MG/DL See_Comment [Automated messa ge] The system which generated this result transmitted reference range: 0.60-1.30 MG/DL. The reference range was not used to interpret this result as normal/abnormal. eGFR (2020 CKD-EPI) (test code = 79448-5) 86 ML/MIN/1.73 See_Comment [Automated message] The system which generated this result transmitted reference range: >60 ML/MIN/1.73. The reference range was not used to interpret this result as normal/abnormal. GLUCOSE (test code = 1558-6) 623 MG/DL See_Comment HH [Automated messa ge] The system which generated this result transmitted reference range: 70-99 MG/DL. The reference range was not used to interpret this result as normal/abnormal. POTASSIUM (test code = 2823-3) 4.1 MEQ/L See_Comment [Automated messa ge] The system which generated this result transmitted reference range: 3.5-5.4 MEQ/L. The reference range was not used to interpret this result as normal/abnormal. PROTEIN, TOTAL (test code = 2885-2) 6.7 G/DL See_Comment [Automated messa ge] The system which generated this result transmitted reference range: 6.1-8.3 G/DL. The reference range was not used to interpret this result as normal/abnormal. AST (test code = 1920-8) 31 U/L See_Comment [Automated messa ge] The system which generated this result transmitted reference range: 9-40 U/L. The reference range was not used to interpret this result as normal/abnormal. ALT (test code = 1742-6) 43 U/L See_Comment H [Automated messa ge] The system which generated this result transmitted reference range: 5-40 U/L. The reference range was not used to interpret this result as normal/abnormal. SODIUM (test code = 2951-2) 135 MEQ/L See_Comment [Automated messa ge] The system which generated this result transmitted reference range: 133-146 MEQ/L. The reference range was not used to interpret this result as normal/abnormal. infectious disease [id number] 00:00:00* Test Item Value Reference Range Interpretation Comme nts atopobium vaginae (test code = atopobium vaginae) 27.636 ppm 19.961-24.689 A bvab 2,3 (bacterial vaginosi s associated bacteria 2, 3); mobiluncus spp (test code = bvab 2,3 (bacterial vaginosis associated bacteria 2, 3); mobiluncus spp) 0.000 ppm 19.961-24.689 jurgen albicans, parapsilos is, tropicalis (test code = jurgen albicans, parapsilosis, tropicalis) 25.300 ppm 19.961-30.770 A jurgen glabrata (nakaseomyc es glabratus) (test code = jurgen glabrata (nakaseomyces glabratus)) 0.000 ppm 23.000-32.138 jurgen krusei (pichia kudriavzevii) (test code = jurgen krusei (pichia kudriavzevii)) 0.000 ppm 23.000-32.271 chlamydia trachomatis (test code = chlamydia trachomatis) 0.000 ppm 23.000-31.467 gardnerella vaginalis (test code = gardnerella vaginalis) 0.000 ppm 19.961-24.689 herpes simplex virus 1 (test code = herpes simplex virus 1) 0.000 ppm 23.000-32.355 herpes simplex virus 2 (test code = herpes simplex virus 2) 0.000 ppm 23.000-31.433 megasphaera (types 1, 2) (te st code = megasphaera (types 1, 2)) 0.000 ppm 19.961-24.689 neisseria gonorrhoeae (test code = neisseria gonorrhoeae) 0.000 ppm 23.000-32.117 trichomonas vaginalis (test code = trichomonas vaginalis) 0.000 ppm 23.000-32.119 [facility] A[facility] [id number] 19:14:00* Test Item Value Reference Range Interpretation Comme [facility] POCT HBA1C (test code = 4548-4) 7.8 % 4-6 A Lab Interpretation (test cod e = 61862-2) Abnormal [facility] LAB RESULTS ([facility])2023-11-03 18:48:45 Ordered by an unspecified provider.[facility] W/AUTO [id number] 00:00:00* Test Item Value Reference Range Interpretation Comme nts NUCLEATED RBCS (test code = 87411-0) 0.0 /100 WBC'S See_Comment [Automated messa ge] The system which generated this result transmitted reference range: 0.0 /100 WBC'S. The reference range was not used to interpret this result as normal/abnormal. ABSOLUTE EOSINOPHILS (test code = 32766-0) 0.21 K/UL See_Comment [Automated messa ge] The system which generated this result transmitted reference range: 0.00-0.50 K/UL. The reference range was not used to interpret this result as normal/abnormal. ABSOLUTE LYMPHOCYTES (test code = 47002-1) 1.70 K/UL See_Comment [Automated messa ge] The system which generated this result transmitted reference range: 1.00-4.00 K/UL. The reference range was not used to interpret this result as normal/abnormal. ABSOLUTE MONOCYTES (test code = 27805-0) 0.45 K/UL See_Comment [Automated messa ge] The system which generated this result transmitted reference range: 0.20-1.00 K/UL. The reference range was not used to interpret this result as normal/abnormal. ABSOLUTE NEUTROPHILS (test code = 90254-5) 5.42 K/UL See_Comment [Automated messa ge] The system which generated this result transmitted reference range: 1.50-7.50 K/UL. The reference range was not used to interpret this result as normal/abnormal. BASOPHILS (test code = 82385-5) 0.6 % EOSINOPHILS (test code = 89273-1) 2.7 % HEMATOCRIT (test code = 31190-8) 39.2 % See_Comment [Automated messa ge] The [...] result as normal/abnormal. LYMPHOCYTES (test code = 69620-7) 21.7 % MCH (test code = 44118-4) 30.0 PG See_Comment [Automated messa ge] The system which generated this result transmitted reference range: 25.0-33.0 PG. The reference range was not used to interpret this result as normal/abnormal. MCHC (test code = 83853-4) 32.4 G/DL See_Comment [Automated messa ge] The system which generated this result transmitted reference range: 31.0-36.0 G/DL. The reference range was not used to interpret this result as normal/abnormal. MCV (test code = 04656-2) 92.7 fL See_Comment [Automated messa ge] The system which generated this result transmitted reference range: 80.0-99.0 fL. The reference range was not used to interpret this result as normal/abnormal. MONOCYTES (test code = 10658-9) 5.7 % NEUTROPHILS (test code = 03231-3) 69.0 % PLATELET COUNT (test code = 39522-7) 259 K/UL See_Comment [Automated messa ge] The system which generated this result transmitted reference range: 130-400 K/UL. The reference range was not used to interpret this result as normal/abnormal. RBC (test code = 11979-9) 4.23 M/UL See_Comment [Automated messa ge] The system which generated this result transmitted reference range: 3.80-5.40 M/UL. The reference range was not used to interpret this result as normal/abnormal. RDW (test code = 35887-5) 14.0 % See_Comment [Automated messa ge] The system which generated this result transmitted reference range: 11.5-15.0 %. The reference range was not used to interpret this result as normal/abnormal. WBC (test code = 22490-1) 7.9 K/UL See_Comment [Automated messa ge] The system which generated this result transmitted reference range: 3.5-11.0 K/UL. The reference range was not used to interpret this result as normal/abnormal. REFERRAL- REQUEST/[id number] 13:13:39Ordered by an unspecified provider. [facility] ABDOMEN W WO [id number] 18:42:07 ORDERING PHYSICIAN: TERESA ESPANA CLINICAL HISTORY: Adrenal mass, > 2 to < 4cm, no history of malignancyPlease do Calculate Contrast washout values at 60 seconds and in 10-15minutes TECHNIQUE: CTabdomen was performed before and following administration ofintravenous contrast. CT scan was done according to ALARA (As Low asReasonably Achievable). TECHNICAL QUALITY: Diagnostic COMPARISON: 022 FINDINGS: The lung bases are clear. The [...] kidneys, toosmall to characterize but most likely representing benign cysts. The abdominal aorta is atherosclerotic. The bowel is normal in caliber. The appendix is visualized and normal inappearance. The bladder is distended. The uterus is present. The ovaries are normal in size. There is no freefluid in the pelvis. There is no compression fracture.[facility] [id number] 16:47:14* Test Item Value Reference Range Interpretation Comme nts POCT Creatinine (test code = 2488983797) 0.6 mg/dL 0.5-1.1 Lab Interpretation (test cod e = 95520-6) [facility][id number] 15:44:52 Ordered by an unspecified provider.[facility] Hemoglobin A1C [id number] 20:35:00* Test Item Value Reference Range Interpretation Comme [facility] POCT HBA1C (test code = 4548-4) 7.9 % 4-6 A Lab Interpretation (test cod e = 51357-6) Abnormal [facility] Hemoglobin A1C [id number] 20:35:00* Test Item Value Reference Range Interpretation Comme [facility] POCT HBA1C (test code = 4548-4) 7.9 % 4-6 A Lab Interpretation (test cod e = 48712-5) [facility] [id number] 00:00:00* Test Item Value Reference Range Interpretation Comme [facility] A1C (test code = 4548-4) 9.1 CBC W/AUTO [id number] 00:00:00* Test Item Value Reference Range Interpretation Comme [facility] NUCLEATED RBCS (test code = 13001-6) 0.0 /100 WBC'S See_Comment [Automated messa ge] The system which generated this result transmitted reference range: 0.0 /100 WBC'S. The reference range was not used to interpret this result as normal/abnormal. ABSOLUTE EOSINOPHILS (test code = 44209-0) 0.11 K/UL See_Comment [Automated messa ge] The system which generated this result transmitted reference range: 0.00-0.50 K/UL. The reference range was not used to interpret this result as normal/abnormal. ABSOLUTE LYMPHOCYTES (test code = 22778-4) 1.65 K/UL See_Comment [Automated messa ge] The system which generated this result transmitted reference range: 1.00-4.00 K/UL. The reference range was not used to interpret this result as normal/abnormal. ABSOLUTE MONOCYTES (test code = 98748-9) 0.47 K/UL See_Comment [Automated messa ge] The system which generated this result transmitted reference range: 0.20-1.00 K/UL. The reference range was not used to interpret this result as normal/abnormal. ABSOLUTE NEUTROPHILS (test code = 80062-7) 4.11 K/UL See_Comment [Automated messa ge] The system which generated this result transmitted reference range: 1.50-7.50 K/UL. The reference range was not used to interpret this result as normal/abnormal. BASOPHILS (test code = 05507-5) 0.6 % EOSINOPHILS (test code = 10188-5) 1.7 % HEMATOCRIT (test code = 47383-5) 37.9 % See_Comment [Automated messa ge] The [...] result as normal/abnormal. LYMPHOCYTES (test code = 42696-8) 25.8 % MCH (test code = 33767-2) 31.1 PG See_Comment [Automated messa ge] The system which generated this result transmitted reference range: 25.0-33.0 PG. The reference range was not used to interpret this result as normal/abnormal. MCHC (test code = 53470-7) 34.8 G/DL See_Comment [Automated messa ge] The system which generated this result transmitted reference range: 31.0-36.0 G/DL. The reference range was not used to interpret this result as normal/abnormal. MCV (test code = 71379-0) 89.2 fL See_Comment [Automated messa ge] The system which generated this result transmitted reference range: 80.0-99.0 fL. The reference range was not used to interpret this result as normal/abnormal. MONOCYTES (test code = 93928-6) 7.3 % NEUTROPHILS (test code = 26472-6) 64.3 % PLATELET COUNT (test code = 77714-1) 230 K/UL See_Comment [Automated messa ge] The system which generated this result transmitted reference range: 130-400 K/UL. The reference range was not used to interpret this result as normal/abnormal. RBC (test code = 33112-5) 4.25 M/UL See_Comment [Automated messa ge] The system which generated this result transmitted reference range: 3.80-5.40 M/UL. The reference range was not used to interpret this result as normal/abnormal. RDW (test code = 23122-3) 13.4 % See_Comment [Automated OTC PR Groupa ge] The system which generated this result transmitted reference range: 11.5-15.0 %. The reference range was not used to interpret this result as normal/abnormal. WBC (test code = 33751-0) 6.4 K/UL See_Comment [Automated OTC PR Groupa ge] The system which generated this result transmitted reference range: 3.5-11.0 K/UL. The reference range was not used to interpret this result as normal/abnormal. Lipid Panel w/ Chol/HDL [id number] 00:00:00* Test Item Value Reference Range Interpretation Comme nts Cholesterol, Total (test code = 2093-3) 128 mg/dL See_Comment [Automated message] The system which generated this result transmitted reference range: 100-199 mg/dL. The reference range was not used to interpret this result as normal/abnormal. Triglycerides (test code = 2571-8) 159 mg/dL See_Comment H [Automated OTC PR Groupa ge] The system which generated this result transmitted reference range: 0-149 mg/dL. The reference range was not used to interpret this result as normal/abnormal. HDL Cholesterol (test code = 2085-9) 42 mg/dL See_Comment [Automated OTC PR Groupa ge] The system which generated this result transmitted reference range: >39 mg/dL. The reference range was not used to interpret this result as normal/abnormal. T. Chol/HDL Ratio (test code = 9830-1) 3.0 ratio See_Comment [Automated OTC PR Groupa ge] The system which generated this result transmitted reference range: 0.0-4.4 ratio. The reference range was not used to interpret this result as normal/abnormal. Microalbumin/Creat Ratio, Random [id number] 00:00:00* Test Item Value Reference Range Interpretation Comme nts Creatinine, Urine (test code = 2161-8) 168.8 mg/dL Not Estab. mg/dL Albumin, Urine (test code = 59127-0) 516.8 ug/mL Not Estab. ug/mL Alb/Creat Ratio (test code = 01739-1) 306 mg/g creat See_Comment H [Automated OTC PR Groupa ge] The system which generated this result transmitted reference range: 0-29 mg/g creat. The reference range was not used to interpret this result as normal/abnormal. - XR FLUORO FOR SPINE [id number] 14:34:00 [facility] : 1965 Sex: F FAX: Luis Eisenberg MD [phone] [place]: C St: REG Patient Name: BRANDEE JOSÉ Unit No: [id number] EXAMS: CPT CODE:[id number] XR FLUORO FOR SPINE INJ 54949 Location: T 18 INDICATION: ONELIA IMPRESSION: 12 seconds of intraoperative fluoroscopy provided for lumbar ONELIA. I was not present for or involved with the procedure or provided fluoroscopy. Please refer to the procedure note for details. Radiation dose 7 mGy (PSD). at 1434 Reported and signed by: Santino Golden M.D. CC: Luis Porter MD Dictated Date/Time: 04/11/2020 (3393)Technologist: Maurizio Perla Transcribed Date/Time: 04/11/2020 (0162) By: [email or web address] Orig Print D/T: S: 04/11/2020 (4937) [facility] NAME: BRANDEE JOSÉ [facility] PHYS: Luis Mora MD [address] [place] [address] BLVD : 1965 AGE: 54 SEX: F KAMILA, SARAH [address] LOC: SHADI PHONE#: [phone] EXAM DATE: 04/11/2020 STATUS: REG SDC FAX #: [phone] RAD NO: DC Dt: PAGE 1 Signed ReportGLUCOSE BEDSIDE [id number] 11:35:00* Test Item Value Reference Range Interpretation Comme nts GLUCOSE BEDSIDE TESTING (isrrael t code = GLUBED) 189 MG/DL 70-119 H COVID Asymptomatic IH [id number] 12:52:00* Test Item Value Reference Range Interpretation [...] developed and its performancecharacteristics were determined by [facility]. This test has notbeen FDA cleared or approved. This test is authorized by theA under Emergency Use Authorization(EUA). The EUA willremain [...] setting? No? NoAge at collection: YHCG SERUM [id number] 12:55:00* Test Item Value Reference Range Interpretation [...] NORMAL <50 MG Index/DL 1 NORMAL HGB [id number] 12:38:00* Test Item Value Reference Range Interpretation Comme nts RED BLOOD CELL (test code = RBC) 4.52 M/mm3 3.8-5.5 N HEMOGLOBIN (test code = HGB) 13.4 G/DL 10.6-15.8 N HEMATOCRIT (test code = HCT) 42.3 % 31.8-47.4 N MEAN CELL VOLUME (test code = MCV) 93.6 fL 80.1-101.1 N - XR CHEST 2 [id number] 12:21:00 [facility] : 1965 Sex: F FAX: Luis Eisenberg MD [phone] [place]: St: PRE Patient Name: BRANDEE JOSÉ Unit No: [id number] EXAMS: CPT CODE: [id number] XR CHEST 2 V 41278 Site ID: [id number] HISTORY: Preoperative FINDINGS: The lungs are clear and normally expanded. The heart and pulmonary vasculature is normal. Osseous structures are unremarkable. IMPRESSION: Normal preoperative chest x-ray at 1221 Reported and signed by: Santino Golden M.D. CC: Luis Porter MD Dictated Date/Time: 04/06/2020 (3831)Technologist: Smith Benton Transcribed Date/Time: 04/06/2020 (1221) By: [email or web address] Orig Print D/T: S: 04/06/2020 (9195) 507 Imaging NAME: BRANDEE JOSÉ [address] [place] [address] PHYS : ELDGR - Luis Porter MD [place], [place] : 1965 AGE: 54 SEX: F [id number] LOC: SHADI PHONE #: [phone] EXAM DATE: 04/06/2020 [place]US: [place] [facility] [place] #: [phone] RADNO: AMIRAH Dt: PAGE 1 Signed ReportGLUCOSE BEDSIDE [id number] 07:49:00* Test Item Value Reference Range Interpretation Comme nts GLUCOSE BEDSIDE TESTING (isrrael t code = GLUBED) 141 MG/DL 70-119 H Novel Coronavirus 2019 [id number] 18:08:00* Test Item Value Reference Range Interpretation [...] SARS-CoV-2 virusand/or diagnosis of COVID-19 infection under dgarcfm451(b)(1) of the Act, 21 U.S.C. 360bbb-3(b) (1), [...] detected) result in this assay.Performed At: [facility] [address] [place], [place] [id number] Kyle L MD Ph:[phone] UR HCG [id number] 16:55:00* Test Item Value Reference Range Interpretation Comme nts UR HCG QUAL (test code = HCGQLU) NEGATIVE NEG Very dilute urin es with a low specific gravity may notcontain bilingual call center representative levels of hCG. - XR CHEST 2 [id number] 16:55:00 [facility]OSÉ : 1965 Sex: F FAX: Luis Eisenberg MD [phone] [place]: O St: PRE Patient Name: BRNADEE JOSÉ BUNNY Unit No: [id number] EXAMS: CPT CODE:[id number] XR CHEST 2 V 88385 - XR CHEST 2 V LOCATION: T18 [...] Cony Orig Print D/T: S: 03/01/2020 (1657) [facility] NAME: ARNAVBALTAZARBRANDEEMATT [facility] PHYS: Luis Mora [address] [place] [address] : 1965 AGE: 54 SEX: Diana TREVIÑO, [place] [address] : SHADI PHONE #: [phone] EXAM DATE: 03/01/2020 [place]US[place] [facility] [place] #: [phone] RAD NO: DC Dt: PAGE 1 Signed ReportCOMPREHENSIVE METABOLIC [id number] 16:39:00* Test Item Value Reference Range Interpretation [...] <50 MG Index/DL 1 NORMAL COMPREHENSIVE METABOLIC [id number] 16:34:00* Test Item Value Reference Range Interpretation [...] NORMAL <50 MG Index/DL 1 NORMAL HGB [id number] 16:22:00* Test Item Value Reference Range Interpretation Comme nts RED BLOOD CELL (test code = RBC) 4.61 M/mm3 3.8-5.5 N HEMOGLOBIN (test code = HGB) 13.6 G/DL 10.6-15.8 N HEMATOCRIT (test code = HCT) 42.7 % 31.8-47.4 N MEAN CELL VOLUME (test code = MCV) 92.6 fL 80.1-101.1 N Notes Date/Time Note Provider Source 2024-06-03 11:17:58 Due for refill 06/17- refill sent in to be refilled 06/17 Shira Alicea RN [facility] 2024-05-12 16:16:01 Pt Toujeo insulin has been adjusted to 50u daily instead of 100U daily due to lows Pt mounjaro also adjusted from 10mg to 15mg weekly A1C is 6.3 05/12/2024 Routed to provider as FYI [facility] 2024-05-12 15:52:56 Dr. Gonzalez's office is requesting to speak to a nurse regarding the pt's medications. Please advise Ofelia [phone] [facility]2025-01-23 14:29:06 Refill has been sent to pharmacy on file. Future Appointments Date Type Provider Dept 07/13/24 Appointment Teresa Espana MD [facility]- Endocrinology Showing future appointments within next 150 days with a meds authorizing provider and meeting all other requirements LIEUTENANT Shira Alicea RNUTMB - [id number] 08:15:22 Refill has been sent to pharmacy on file. Recent Visits Date Type Provider Dept 01/13/24 Office Visit Teresa Espana MD [facility] 07/08/23 Office Visit Teresa Espana MD [facility] 11/12/22 Office Visit Teresa Espana MD [facility] Showing recent visits within past 540 days with a meds authorizing provider and meeting all other requirements Future Appointments Date Type Provider Dept 07/13/24 Appointment Teresa Espana MD [facility] Showing future appointments within next 150 days with a meds authorizing provider and meeting all other requirements LIEUTENANT [facility]ira Alicea [facility]98[facility] 14:00:00 Images from the original note were not included. Venipuncture collection performed by clean technique on the right anticubitus. Total of 1 attempts were made. Slight pressure and a bandage/dressing were applied to the site(s). The patient experienced no complications. The following specimens were processed according to instructions and sent to [facility] laboratories per lab order on today: LT BLUE SST 1 RED LAV PPT DK GREEN (LiHep) DK GREEN (SodH) ISABEL DK BLUE (K2) DK BLUE (S) ACD Blood Culture NIPT/NTD [facility]2024-10-21 08:09:42 Refill has been sent to pharmacy on file. Future Appointments Date Type Provider Dept 01/13/24 Appointment Teresa Espana MD [facility] Showing future appointments within next 150 days with a meds authorizing provider and meeting all other requirements [facility] Shira Alicea [facility] CareFksbpy2803-59-01 10:50:00 Refill has been sent to pharmacy on file. Date Type Provider Dept 01/13/24 Appointment Teresa Espana MD [facility] Showing future appointments within next 150 days with a meds authorizing provider and meeting all other requirements Shira Alicea [place] [address]-09-30 10:53:08 Refill has been sent to pharmacy on file. Future Appointments Date Type Provider Dept 01/13/24 Appointment Teresa Espana MD [facility] Showing future appointments within next 150 days with a meds authorizing provider and meeting all other requirements Shira Alicea [place] [address]-08-15 09:58:01 Attempted to call pt to update her. Left VM to check Icanbesponsoredt message. Ngozi Reddy [place] [address]-08-13 22:35:07 Sent 30 days refill for levothyroxine 75mcg. Patient need to complete thyroid lab for further refills. Her last thyroid lab was in 2021 Teresa Espana MD Division of Endocrinology and Metabolism [facility]cy[facility]ms8623-60-52 15:50:49 FOBOhart message sent. Kendra Lo [facility] CareEnhfgs4317-90-40 13:17:55 Please review and sign if appropriate: Last office visit: 07/08/23 Next office visit: 01/13/24 Requested Prescriptions Pending Prescriptions Disp Refills levothyroxine 75 mcg tablet Sig: Take 1 tablet by mouth every morning. Signed Prescriptions Disp Refills Insulin Mccall, Disposable, (DROPLET PEN NEEDLE) 32 gauge x 5/32" Ndle 100 Each 3 Sig: inject 1 Each under the skin in the morning. Authorizing Provider: TERESA ESPANA Ordering User: ANGELIC VELA LVN Acquired hypothyroidism Status: controlled Reviewed 10/15/21 TSH=3.1 01/22/22 TSH=3.8 Free T4=1.6 Plan Continue Levothyroxine 75mcg daily Notes: Pen needles sent to selected pharmacy [place] 760914-08-12 18:04:46 Rx for needles was sent Please update with patient Her CT scan showed adrenal adenoma was stable All adrenal hormone tests was also normal Teresa Espana MD Division of Endocrinology and Metabolism [place] 706934-08-12 15:43:59 Please review and sign if appropriate: *New request Last office visit: 07/08/23 Next office visit: 01/13/24 Requested Prescriptions Pending Prescriptions Disp Refills Insulin Mccall, Disposable, (DROPLET PEN NEEDLE) 32 gauge x 5/32" Ndle [Pharmacy Med Name: DROPLET PEN NDL 32G 5/32 IN (4MM)] 0 Notes: Uncontrolled type 2 diabetes mellitus with hyperglycemia - Primary Angelic Vela [facility]2024-08-12 14:58:33 Brandee José is a 58 year old female is calling stating she is needing refills for the needles for Trulicity and Levothyroxine 75mcg. Please advise agustina, pt has been out for a whole week. [facility] [address] [place] [address] [address] [facility]2024-07-11 10:53:07 Patient notified of results. They verbalized understanding of results/recommendations via teach back. No further questions or concerns at this time. Kacy Fontenot [place] 787054-05-21 12:00:00 Images from the original note were not included. Venipuncture collection performed by clean technique on the right anticubitus. Total of 3 attempts were made. Slight pressure and a bandage/dressing were applied to the site(s). The patient experienced no complications. The following specimens were processed according to instructions and sent to [facility] laboratories per lab order on [...] 1 Urine Culture Aptima tube Other urine [place] [address]-05-16 12:11:49 resending [place] [address]-05-15 14:18:12 Brandee José is a 58 year old female Patient is requesting another prescription for dexAMETHasone 1 mg tablet be completed. She states she was unaware she needed to have labs drawn prior to 10am after taking medication. Please contact when available [facility] [address] [place] [id number] T Maria Luisa BryantClinton [facility] HospitalIkpvri0421-40-22 12:45:00 Patient advised of test requirements for needing morning specimen- states she will come back for blood draw another day. Jael De SantiagoClinton [facility] HospitalLllevz5210-93-31 08:56:46 MICAELA 11/12/2022 NOV 08/26/2023 toujeo 100u daily Kendra Donaldson MA 04/16/2023 9:02 AM [place] 892254-01-31 16:49:07 Discussed concerns with patient regarding knee [...] checked out to rule out a DVT. [facility]2024-01-31 16:40:03 Brandee José is a 57 year old female Pt calling in stating her left knee is swollen and she has pain. Pt states her right knee is starting to swell also. Pt is requesting a call back from nurse. Please advise [facility] Astrid ZamoraClinton Memorial HospitalUfsrki0989-54-79 13:28:[id number] [address] PATIENT NAME: BRANDEE JOSÉ ADMIT DATE: 04/11/20 ACCOUNT NO: [id number] ROOM NO: AGE: 54 REPORT TYPE: REPORT OF OPERATION SEX: F ADMITTING PHYSICIAN: ATTENDING PHYSICIAN:Luis Porter MD OPERATION DATE: 04/11/2020 PREOPERATIVE DIAGNOSES: L5-S1 herniated nucleus pulposus and left leg lumbar radicular syndrome. POSTOPERATIVE DIAGNOSES: L5-S1 herniated nucleus pulposus and left leg lumbar radicular syndrome. PROCEDURE: L5-S1 interlaminar epidural steroid injection with C-arm fluoroscopic guidance. SURGEON: Luis Porter MD THEATRICAL VARIETY AGENT: Rachael Arcos, licensed assistant corporate secretary. ANESTHESIA: General endotracheal anesthesia. ESTIMATED BLOOD LOSS: [...] JOSÉ Dictated By: Luis Porter MD WT: OP:GIANLUCA/DOROTHEA/MAURO Conf#: [id number]/DID#: [id number] Authenticated by Luis Porter MD On 04/17/2020 04:29:47 PM at 1630 PATIENT NAME: BRANDEE JOSÉ 13:15:00 [facility] ([facility] Brief Op Note REPORT#:[id number] REPORT STATUS: Signed DATE:04/11/20 TIME: 1315 PATIENT: BRANDEE JOSÉ UNIT #: [id number] ROOM/BED: : 67 AGE: 54 SEX: F ATTEND: Luis Porter MD ADM AUTHOR: Luis Porter MD * ALL edits or amendments must be made on the electronic/computer document * Op/Inv Proc Note - Brief Pre-procedure diagnosis: L5-S1 HNP and lumbar radiculopathy Post-procedure diagnosis: same as pre procedure dx Procedures performed: L5-S1 interlaminar epidural steroid injection with fluoroscopic guidance Primary Surgeon: Luis Porter MD Visual Lead(s): none Findings: As above Complications: none Estimated blood loss in ml's: none Specimens removed/altered: none at 1316 RPT #:[id number] END OF [id number] 12:12:122793-4331 [place] [address] PATIENT NAME: BRANDEE JOSÉ ADMIT DATE: ACCOUNT NO: [id number] ROOM NO: AGE: 54 REPORT TYPE: ELECTROCARDIOGRAM SEX: F ADMITTING PHYSICIAN: ATTENDING PHYSICIAN:Luis Porter MD Order: [id number] Test Reason : PREOP Test Date/Time Stamp: [...] No significant change was found Confirmed by ALEXANDRA BECKFORD, NED ([id number]) on 04/06/2020 2:53:56 PM Referred By: Luis Porter Confirmed by:NED ELLIS MD at 1454 PATIENT NAME: BRANDEE JOSÉ 08:41:00 [id number] [place] [address] PATIENT NAME: BRANDEE JOSÉ ADMIT DATE: 03/07/20 ACCOUNT NO: [id number] ROOM NO: AGE: 54 REPORT TYPE: REPORT OF OPERATION SEX: F ADMITTING PHYSICIAN: ATTENDING PHYSICIAN:Luis Porter MD OPERATION DATE: PREOPERATIVE DIAGNOSES: Lumbar spinal stenosis and lumbar radicular syndrome. POSTOPERATIVE DIAGNOSES: Lumbar spinal stenosis and lumbar radicular syndrome. PROCEDURE: L5-S1 interlaminar epidural steroid injection with C-arm fluoroscopic guidance. SURGEON: Luis Porter MD THEATRICAL VARIETY AGENT: None. ANESTHESIA: Local with IV sedation. ESTIMATED [...] By: Luis Porter MD WT: OP:GIANLUCA/DOROTHEA/NTS Conf#: [id number]/DID#: [id number] Authenticated by Luis Porter MD On 03/16/2020 03:01:09 PM at 1501 PATIENT NAME: BRANDEE JOSÉ 08:36:00 [facility] ([facility]) Brief Op Note REPORT#:[id number] REPORT STATUS: Signed DATE:03/07/20 TIME: 08 PATIENT: BRANDEE JOSÉ UNIT #: [id number] ROOM/BED: : 67 AGE: 54 SEX: F [...] fluoroscopic guidance Primary Surgeon: Luis Porter MD Visual Lead(s): none Findings: as above Complications: none Estimated blood loss in ml's: none Specimens removed/altered: none at 0837 RPT #:[id number] END OF REPORTFIAOM1628-07-31 16:01:395699-5744 [place] [address] PATIENT NAME: BRANDEE JOSÉ ADMIT DATE: ACCOUNT NO: [id number] ROOM NO: AGE: 54 REPORT TYPE: ELECTROCARDIOGRAM SEX: F ADMITTING PHYSICIAN: ATTENDING PHYSICIAN:Luis Porter MD Order: [id number] Test Reason : >50YO Test Date/Time Stamp: [...]
--- NOTE | 2024-06-21 20:50 | EDPHYS ---
Physician Documentation [facility] Name: Brandee Rajan Age: 59 yrs Sex: Female : 1965 Arrival Date: 06/21/2024 Time: 20:11 Bed 12 Private MD: ED Physician Phillip Nathan HPI: 06/21 21:04 This 59 yrs old Female presents to ER via Ambulatory with complaints of Redness of Eye, sb4 Drainage From Eye. 21:07 Woke up with redness and drainage from her left eye. Went and saw ophthalmology and was sb4 diagnosed with "pinkeye ". Was prescribed an eyedrop but could not afford it, eye doctor would not allow generic substitution. She comes here requesting a cheaper alternative. Does report a history of diabetes and some diabetic retinopathy but does not wear contacts and has no other ophthalmologic pathology underlying. She is also complaining of right sciatica pain. Historical: - Allergies: 20:27 No Known Allergies; cm10 - PMHx: 20:27 acid reflux; Anxiety; Arthritis; Chronic obstructive lung disease; diabetes mellitus; cm10 Hypercholesterolemia; Hypertensive disorder; thyroid; - PSHx: 20:27 breast reduction; Cholecystectomy; cm10 - Immunization history:: Adult Immunizations up to date. - Infectious Disease History:: Denies. - Social history:: Smoking status: Patient denies any tobacco usage or history of. ROS: 21:07 Constitutional: Negative for fever, chills, and weight loss, sb4 21:07 Eyes: Positive for discharge, pain, redness, swelling, of the left eye, 21:07 All other systems are negative, Exam: 21:07 Visual Acuity: Visual acuity is within normal limits. sb4 21:07 Constitutional: This is a well developed, well nourished patient who is awake, alert, and in no acute distress. Head/Face: Normocephalic, atraumatic. ENT: Mucous membranes moist. Respiratory: No increased work of breathing, no retractions or nasal flaring. Skin: Warm, dry with normal turgor. Normal color with no rashes, no lesions, and no evidence of cellulitis. 21:07 Eyes: Pupils: equal, round, and reactive to light and accomodation, Extraocular movements: intact throughout, Conjunctiva: exudate, in the left eye, injected, Vital Signs: 20:26 BP 101 / 77; Pulse 87; Resp 15; Temp 98.3(O); Pulse Ox 98% on R/A; Weight 99.79 kg; cm10 Height 5 ft. 4 in. ; Pain 8/10; 20:55 BP 105 / 78; Pulse 78; Resp 17; Temp 98.3; Pulse Ox 99% ; Pain 2/10; bm8 20:26 Body Mass Index 37.76 (99.79 kg, 162.56 cm) cm10 20:26 Pain Scale: Adult cm10 20:55 Pain Scale: Adult bm8 [place] Coma Score: 20:55 Eye Response: spontaneous(4). Motor Response: obeys commands(6). Verbal Response: bm8 oriented(5). Total: 15. MDM: 20:35 Medical Screening Exam initiated sb4 21:09 Data reviewed: vital signs, nurses notes, and as a result, I will discharge patient. sb4 Counseling: I had a detailed discussion with the patient and/or guardian regarding the historical points, exam findings, and any diagnostic results supporting the discharge/admit diagnosis, the need for outpatient follow up, for definitive care, to return to the emergency department if symptoms worsen or persist or if there are any questions or concerns that arise at home. Administered Medications: No medications were administered Disposition: 06/22 02:49 Co-signature as Attending Physician, Phillip Nathan MD I agree with the assessment sp4 and plan of care. I reviewed the patient's care provided by the Advanced Practice Provider and agree with the diagnosis and treatment plan. Disposition Summary: 06/21/24 20:49 Discharge Ordered Notes: Location: Home sb4 Problem: new sb4 Symptoms: are unchanged sb4 Condition: Stable sb4 Diagnosis - Other mucopurulent conjunctivitis, left eye sb4 - Sciatica, right side sb4 Followup: sb4 - With: Private Physician - When: 1 week - Reason: Recheck today's complaints, Re-evaluation by your physician Discharge Instructions: - Discharge Summary Sheet sb4 - Bacterial Conjunctivitis, Adult sb4 - Sciatica sb4 Forms: - Antibiotic Education sb4 - Patient Portal Instructions sb4 - Leadership Thank You Letter sb4 Prescriptions: - Erythromycin 5 mg/gram (0.5 %) Ophthalmic ointment - apply 1 ribbon OPHTHALMIC route every 8 hours; 1 Applicator; Refills: 0, sb4 Product Selection Permitted - methocarbamol 750 mg Oral tablet - take 1 tablet ORAL route every 4 hours; 12 tablet; Refills: 0, Product sb4 Selection Permitted Signatures: Jaz Armstrong, SHAWN ESCOBAR sb4 Phillip Nathan MD MD sp4 Neida Truk RN RN cm10
--- NOTE | 2024-06-21 20:50 | ER ---
Nurse's Notes [facility] Name: Brandee Rajan Age: 59 yrs Sex: Female : 1965 Arrival Date: 06/21/2024 Time: 20:11 Bed 12 Private MD: Diagnosis: Other mucopurulent conjunctivitis, left eye;Sciatica, right side Presentation: 06/21 20:26 Chief complaint: Patient states: Diagnosed with pink eye this morning and needs a new cm10 prescription for the generic medicine. Coronavirus screen: Client denies travel out of the [place] in the last 14 days. Ebola Screen: Patient denies travel to an Ebola-affected area in the 21 days before illness onset. Initial Sepsis Screen: Does the patient meet any 2 criteria? No. Patient's initial sepsis screen is negative. Does the patient have a suspected source of infection? No. Patient's initial sepsis screen is negative. Risk Assessment: Do you want to hurt yourself or someone else? Patient reports no desire to harm self or others. Onset of symptoms was June 21, 2024. 20:26 Method Of Arrival: Ambulatory cm10 20:26 Acuity: ONELIA 4 cm10 Triage Assessment: 20:28 General: Appears in no apparent distress. comfortable, Behavior is calm, cooperative. cm10 Pain: Complains of pain in left eye. Neuro: No deficits noted. Level of Consciousness is awake, alert, obeys commands, Oriented to person, place, time, situation, Appropriate for age. Historical: - Allergies: 20:27 No Known Allergies; cm10 - PMHx: 20:27 acid reflux; Anxiety; Arthritis; Chronic obstructive lung disease; diabetes mellitus; cm10 Hypercholesterolemia; Hypertensive disorder; thyroid; - PSHx: 20:27 breast reduction; Cholecystectomy; cm10 - Immunization history:: Adult Immunizations up to date. - Infectious Disease History:: Denies. - Social history:: Smoking status: Patient denies any tobacco usage or history of. Screenin:48 [facility] ED Fall Risk Assessment (Adult) History of falling in the last 3 months, bm8 including since admission No falls in past 3 months (0 pts) Confusion or Disorientation No (0 pts) Intoxicated or Sedated No (0 pts) Impaired Gait No (0 pts) Mobility Assist Device Used No (0 pt) Altered Elimination No (0 pt) Score/Fall Risk Level 0 - 2 = Low Risk Oriented to surroundings, Maintained a safe environment, Educated pt \T\ family on fall prevention, incl call for assistance when getting out of bed, Assessed \T\ reinforced patient's understanding of fall precautions, Hourly rounding (assess needs \T\ fall precautionary measures) done, Used ambulatory aids as needed (educated on \T\ assisted with), Used gait belt as appropriate. Abuse screen: Denies threats or abuse. Nutritional screening: No deficits noted. Tuberculosis screening: No symptoms or risk factors identified. Assessment: 20:48 Reassessment: Patient appears in no apparent distress at this time. Patient and/or bm8 family updated on plan of care and expected duration. Pain level reassessed. Patient is alert, oriented x 3, equal unlabored respirations, skin warm/dry/pink. EENT: Eyes are tearing on inner aspect of conjunctiva of left eye pt reports diagnosis of pink from her DR, but was unable to afford name brand prescription needs generic brand. Vital Signs: 20:26 BP 101 / 77; Pulse 87; Resp 15; Temp 98.3(O); Pulse Ox 98% on R/A; Weight 99.79 kg; cm10 Height 5 ft. 4 in. ; Pain 8/10; 20:55 BP 105 / 78; Pulse 78; Resp 17; Temp 98.3; Pulse Ox 99% ; Pain 2/10; bm8 20:26 Body Mass Index 37.76 (99.79 kg, 162.56 cm) cm10 20:26 Pain Scale: Adult cm10 20:55 Pain Scale: Adult bm8 [place] Coma Score: 20:55 Eye Response: spontaneous(4). Motor Response: obeys commands(6). Verbal Response: bm8 oriented(5). Total: 15. ED Course: 20:13 Patient arrived in ED. jj6 20:27 Triage completed. cm10 20:28 Arm band placed on right wrist. Patient placed in an exam room, on a stretcher. cm10 20:35 Jaz Armstrong PA-C is PHCP. sb4 20:35 Phillip Nathan MD is Attending Physician. sb4 20:48 Patient has correct armband on for positive identification. Bed in low position. Call bm8 light in reach. Provided Education on: post er care. Client placed on continuous cardiac and pulse oximetry monitoring. NIBP monitoring applied. Pulse ox on. NIBP on. 20:48 No provider procedures requiring assistance completed. Patient did not have IV access bm8 during this emergency room visit. 20:55 Ronald Sexton, RN is Primary Nurse. bm8 Administered Medications: No medications were administered Medication: 20:48 VIS not applicable for this client. bm8 Outcome: 20:49 Discharge ordered by . sb4 20:55 Discharged to home ambulatory, bm8 20:55 Condition: stable 20:55 Discharge instructions given to patient, Instructed on discharge instructions, follow up and referral plans. no drinking with medication, no driving heavy equipment, medication usage, safety practices, Demonstrated understanding of instructions, follow-up care, medications, Prescriptions given X 2, 20:56 Patient left the ED. bm8 Signatures: Roseanne Simons Sophia, PA-C PA-C sb4 Neida Turk, RN RN cm10 Ronald Sexton, RN RN bm8
[2024-06-21 21:06] VITALS: TEMP 98.3
[2024-06-21 21:07] VITALS: BP 105/78; O2SAT 99
== END 2024-06-21 20:56 | disposition home or self-care (01) ==
LOC: ER 20:11
DX: H10.022 Other mucopurulent conjunctivitis, left eye (principal); M54.31 Sciatica, right side
CPT/HCPCS: 99283

== ENCOUNTER 2024-10-23 20:49 | Emergency (ER) | payer OTHER ==
--- OUTSIDE RECORDS SUMMARY | 2024-10-23 20:57 | XMS REPORT | Continuity of Care Document ---
Author Name Unknown Address [address] [place] [address] [facility] Address [address] [place] [address] Care Team Providers Care Senior Publications Specialist Name Role Phone Rocio BECKFORD, Roberto Carlos Meehan Primary Care Physician [phone] Chayo Gonzalez Attending Clinician Unavailable Jessa Ruelas Attending Clinician Unavailable Luis Porter Attending Clinician UnavailEMELI Boone Attending Clinician Unavailable Slade BECKFORD, Tiesha Attending Clinician TERESA JOSE Attending Clinician Unavailable Teresa Jose MD Attending Clinician [phone] Chauncey Ohara MD Attending Clinician Doctor Unassigned, [place] Attending Clinician U navailable Lab, Ang - Db Attending Clinician Unavailable Tiesha June MD Attending Clinician [phone] TIESHA JUNE Attending Clinician Unavailable Doctor Unassigned, [place] Attending Clinician [facility], Ang - Db Attending Clinician Unavailable Damon BECKFORD, Teresa Attending Clinician SAFIA HOGAN Attending Clinician Unavailable [email or web address] Attending Clinician Unavaila Yesika Russell Admitting Clinician Unavailable Physician, No Primary or Family Admitting Clinic adina Unavailable TERESA JOSE Admitting Clinician Unavailable [email or web address] Admitting Clinician Unavailbijal fish Payers Payer Name Policy Type Policy Number Effective Date Expirati on Date Source [facility] H[facility] [id number] 2019 00:00:00 [employer] MEDICARE 53 [id number] 2019 00:00:00 [facility] [employer] MEDICARE 53 [id number] 2021 00:00:00 [facility] [employer] (MEDICARE REPLACEMENT/ADV ANTAGE - HMO) [id number] [place] [id number] [employer] MEDICARE C1 [id number] 2019 00:00:00 [facility] [employer]NA MEDICARE C1 [id number] 2019 00:00:00 [facility] [employer] MEDICARE C1 [id number] 2019 00:00:00 [facility] [employer] MEDICARE C1 [id number] 2019 00:00:00 [facility] [employer] MEDICARE C1 [id number] 2019 00:00:00 [facility] [employer] MEDICARE C1 [id number] 2019 00:00:00 [facility] [employer] MEDICARE C1 [id number] 2019 00:00:00 [facility] [employer] MEDICARE C1 [id number] 2019 00:00:00 [facility] Problems Condition Name Condition Details Condition Category Status Onset Date Resolution Date Last Treatment Date Treating Clinician Comments Source Postmenopa usal bleeding Postmenopa usal Bleeding Problem Active 3-03 00:00: 00 [facility] Mixed urinary incontinen ce Mixed Urinary Incontinen ce Problem Active 3-03 00:00: 00 [facility] Overactive urinary bladder Overactive Urinary Bladder Problem Active 3-03 00:00: 00 [facility] Incontinen ce-associa debra dermatitis Incontinen ce-associa debra Dermatitis Problem Active 3-03 00:00: 00 [facility] Malignant melanoma of skin Malignant Melanoma of Skin Problem Active 2- 00:00: 00 [facility] Umbilical hernia Umbilical Hernia Problem Active 2- 00:00: 00 [facility] Candidiasi s of vagina Candidiasi s of Vagina Problem Active 2023-03- 00:00: 00 [facility] Nicotine dependence Nicotine Dependence Problem Active 2023-03 00:00: 00 [facility] Abscess of skin and/or subcutaneo us tissue Abscess of Skin And/or Subcutaneo us Tissue Problem Active 2023-03 00:00: 00 [facility] Morbid obesity Morbid obesity Disease Active 09-02 00:00: 00 [facility] Primary hypertensi on Primary hypertensi on Disease Active 09-02 00:00: 00 [facility] FRANCESCA on CPAP FRANCESCA on CPAP Disease Active 09-02 00:00: 00 [facility] Fatigue, unspecifie d type Fatigue, unspecifie d type Disease Active 09-02 00:00: 00 [facility] Cigarette smoker Cigarette smoker Disease Active 09-02 00:00: 00 [facility] Hyperlipid emia, unspecifie d hyperlipid emia type Hyperlipid emia, unspecifie d hyperlipid emia type Disease Active 09-02 00:00: 00 [facility] Hypothyroi dism Hypothyroi dism Problem Active 9-05 00:00: 00 [facility] Type 2 diabetes mellitus Type 2 Diabetes Mellitus Problem Active 11-12 00:00: 00 [facility] Depressive disorder Depressive Disorder Problem Active 11-12 00:00: 00 [facility] Chronic obstructiv e pulmonary disease Chronic Obstructiv e Pulmonary Disease Problem Active 11-12 00:00: 00 [facility] Gastroesop hageal reflux disease Gastroesop hageal Reflux Disease Problem Active 11-12 00:00: 00 [facility] Adrenal mass 1 cm to 4 cm in diameter Adrenal mass 1 cm to 4 cm in diameter Disease Active 05-27 00:00: 00 [facility] [id number] Type 2 diabetes mellitus with hyperglyce juan c Problem Common [facility] [id number] Mixed hyperlipid emia Problem [facility] [id number] Other chronic pain Problem [facility] [id number] Depression with anxiety Problem [facility] Gallstones [facility] [id number] Type 2 diabetes mellitus without complicati ons Problem [facility] 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 Problem [facility] [id number] Cigarette nicotine dependence with nicotine-i nduced disorder Problem Common [facility] Anxiety Anxiety Problem [facility] Allergic rhinitis Allergic rhinitis Problem [facility] Diabetes mellitus without complicati on Diabetes DMII without complicati ons Problem [facility] [id number] 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 with pain Problem [facility] [id number] Acute bronchitis , unspecifie d organism Problem [facility] [id number] Lumbar degenerati ve disc disease Problem [facility] [id number] Lesion of plantar nerve, left lower limb Problem [facility] [id number] Pain in left foot Problem [facility] [id number] Posterior tibial tendinitis , left leg Problem [facility] Seizure Seizures Problem [facility] 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 (disorder) Type 2 diabetes mellitus with both eyes affected by mild nonprolife rative retinopath y without macular edema, without long-term current use of insulin Problem [facility] Memory problem Memory problem Problem [facility] Acquired hypothyroi dism Acquired hypothyroi dism Problem [facility] [id number] Suspected ingested foreign body not found after observatio n Problem [facility] [id number] Type 2 diabetes mellitus with other diabetic kidney complicati on Problem [facility] [id number] Pain, joint, knee, left Problem [facility] [id number] Pain, joint, knee, right Problem [facility] Nasal sinus problem (finding) Sinus problem Problem [facility] [id number] Diabetic peripheral neuropathy Problem [facility] [id number] Sciatica of right side Problem [facility] [id number] Leukocytos is, unspecifie d type Problem [facility] [id number] Primary osteoarthr itis of right knee Problem [facility] Allergies, Adverse Reactions, Alerts Allergy Name Allergy Type Status Severity Reaction(s) Onset Date Inactive Date Treating Clinician Comments Source cedarwoo d DA Active [place] 04-06 00:00: 00 [facility] ragweed pollen DA Active [place] 04-06 00:00: 00 [facility] cedarwoo d DA Active [place] SINUS PROBLEMS 04-06 00:00: 00 [facility] ragweed pollen DA Active [place] SINUS PROBLEMS 04-06 00:00: 00 [facility] No Known Allergie s DA Active U 2019-03 00:00: 00 [facility] No Known Allergie s DA Active U 2019-03 00:00: 00 [facility] NO KNOWN ALLERGIE S Drug Class Active [facility] Social History Social Habit Start Date Stop Date Quantity Comments Source Sex Assigned At Common [facility] of [facility] use Passive smoker [facility] ASSERTION Possible [facility] History of Social function 2023-09-03 00:00:00 2023-09-03 00:00:00 [facility] Tobacco use and exposure 2023-09-03 00:00:00 2023-09-03 00:00:00 Smokeless tobacco non-user [facility] Exposure to SARS-CoV-2 (event) 2022-05-06 00:00:00 2022-05-16 15:29:[address] [facility] Smoking Status Start Date Stop Date Source Unknown if ever smoked Commo n [facility] Smokes tobacco daily 2023-09-03 00:00:00 [facility] Medications Ordered Medication Name Filled Medication Name Start Date Stop Date Current Medication? Ordering Clinician Indication Dosage Frequency Signature (SIG) Comments Components Source metformin ER 750 mg 24 hr tablet 6-16 00:00: 00 Yes [id number] TAKE 1 TABLET EVERY MORNING AND TAKE 1 TABLET EVERY EVENING WITH MEALS [facility] gabapentin 300 mg capsule -27 00:00: 00 Yes [id number] 9106 TAKE 1 CAPSULE EVERY MORNING AND EVENING [facility] ursodiol 250 mg tablet 2-12 00:00: 00 Yes 1mg Bo Nunn TOUJEO MAX U-300 SOLOSTAR 300 unit/mL (3 mL) InPn -23 00:00: 00 Yes [id number] 100U INJECT 100 UNITS UNDER THE SKIN IN THE MORNING [facility] DROPLET PEN NEEDLE 32 gauge x 5/32" Ndle - 00:00: 00 Yes [id number] USE DIRECTED ONE TIME DAILY IN THE MORNING [facility] DROPLET PEN NEEDLE 32 gauge x 5/32" Ndle 04-01 00:00: 00 Yes [id number] USE DIRECTED ONE TIME DAILY IN THE MORNING [facility] Toujeo Max U-300 SoloStar 300 unit/mL (3 mL) subcutaneou s insulin pen 04-01 00:00: 00 Yes (3 mL) Bo Nunn GABAPENTIN 300 mg capsule - 00:00: 00 06-03 00:00 :00 No [id number] 9106 TAKE 1 CAPSULE EVERY MORNING AND EVENING [facility] metformin ER 750 mg tablet,exte nded [...] mg Bo Nunn GABAPENTIN 300 mg capsule 2023-03- 00:00: 00 03-19 00:00 :00 No [id number] 9106 TAKE 1 CAPSULE EVERY MORNING AND EVENING [facility] ACCU-CHEK GUIDE TEST STRIPS strip 2023-03 0-07 00:00: 00 Yes [id number] TEST BLOOD SUGAR TWICE DAILY [facility] ACCU-CHEK GUIDE TEST STRIPS strip 2023-03 0-07 00:00: 00 Yes [id number] TEST BLOOD SUGAR TWICE DAILY [facility] gabapentin 300 mg capsule 12-07 00:00: 00 12-28 00:00 :00 No [id number] 9106 TAKE 1 CAPSULE EVERY MORNING AND EVENING [facility] Insulin [place], Disposable, (DROPLET PEN NEEDLE) 32 gauge x 5/32" Ndle 8-13 00:00: 00 04-01 00:00 :00 No [id number] 1{each} inject 1 Each under the skin in the morning. [facility] Insulin [place], Disposable, (DROPLET PEN NEEDLE) 32 gauge x 5/32" Ndle 8-12 00:00: 00 10-20 00:00 :00 No [id number] 1{each} inject 1 Each under the skin in the morning. [facility] cetirizine 10 mg tablet 09-02 14:19: 02 Yes 10mg Take 1 tablet by mouth in the morning. [facility] benzonatate 100 mg capsule 09-02 14:19: 02 Yes [id number] Take 100 capsules by mouth in the morning. [facility] meloxicam 15 mg tablet 08-06 00:00: 00 Yes mg Bo Diana Edouard dexAMETHaso ne 1 mg tablet 07-23 00:00: 00 Yes [id number] 1mg Take 1 tablet by mouth SEE-INSTRU CTIONS. Take at 23:00 for dexamethas one suppressio n test, night before blood draw [facility] iopamidol (ISOVUE 370-500 mL) injection 100 mL 04 17:15: 00 07-11 17:17 :00 No [id number] 100mL 100 mL, Intravenou s, ONCE, 1 dose, On 07/12/23 at 1230, Routine [facility] dexAMETHaso ne 1 mg tablet 30 00:00: 00 07-23 00:00 :00 No [id number] 1mg Take 1 tablet by mouth SEE-INSTRU CTIONS. Take at 23:00 for dexamethas one suppressio n test, night before blood draw [facility] TOUJEO MAX U-300 SOLOSTAR 300 unit/mL (3 mL) InPn 2-07 00:00: 00 04-01 00:00 :00 No [id number] 100U INJECT 100 UNITS UNDER THE SKIN IN THE MORNING [facility] METFORMIN ER 750 mg 24 hr tablet 1-10 00:00: 00 08-20 00:00 :00 No [id number] TAKE 1 TABLET EVERY MORNING AND TAKE 1 TABLET EVERY EVENING WITH MEALS [facility] Levothyroxi ne Sodium 75 MCG Levothyroxi ne Sodium 75 MCG 2022-03 2- 00:00: 00 No QD Levothyrox ine Sodium 75 MCG ACCU-CHEK GUIDE TEST STRIPS strip 2022-03 00:00: 00 12-14 00:00 :00 No [id number] TEST BLOOD SUGAR TWICE DAILY [facility] ACCU-CHEK GUIDE TEST STRIPS strip 2022-03 00:00: 00 12-14 00:00 :00 No [id number] TEST BLOOD SUGAR TWICE DAILY [facility] insulin glargine U-300 conc (TOUJEO MAX U-300 SOLOSTAR) 300 unit/mL (3 mL) In 2022-03 1-24 00:00: 00 04-16 00:00 :00 No [id number] 100U INJECT 100 UNITS UNDER THE SKIN IN THE MORNING [facility] gabapentin 300 mg capsule -05 00:00: 00 12-07 00:00 :00 No [id number] 9106 300mg Take 1 capsule by mouth in the morning and 1 capsule in the evening. [facility] dulaglutide (TRULICITY) 3 mg/0.5 mL PnIj 9-05 00:00: 00 07-07 00:00 :00 No [id number] 3mg inject 1 Pen under the skin weekly. [facility] insulin glargine U-300 conc (TOUJEO MAX U-300 SOLOSTAR) 300 unit/mL (3 mL) In 5- 00:00: 00 01-31 00:00 :00 No [id number] 100U inject 100 Units under the skin in the morning. [facility] metformin ER 750 mg 24 hr tablet 3-07 00:00: 00 03-19 00:00 :00 No [id number] TAKE 1 TABLET EVERY MORNING AND TAKE 1 TABLET EVERY EVENING WITH MEALS [facility] ACCU-CHEK GUIDE TEST STRIPS strip 05-14 00:00: 00 02-19 00:00 :00 No [id number] TEST 2 TIMES DAILY E11.65 [facility] dulaglutide (TRULICITY) 1.5 mg/0.5 mL PnIj 05-14 00:00: 00 11-12 00:00 :00 No [id number] 1.5mg inject 1 Pen under the skin weekly. [facility] insulin glargine U-300 conc (TOUJEO MAX U-300 SOLOSTAR) 300 unit/mL (3 mL) In 05-14 00:00: 00 07-29 00:00 :00 No [id number] 100U inject 100 Units under the skin in the morning. [facility] insulin glargine U-300 conc (TOUJEO MAX U-300 SOLOSTAR) 300 unit/mL (3 mL) In 03-23 00:00: 00 05-14 00:00 :00 No [id number] 90U inject 90 Units under the skin in the morning. [facility] metformin ER 750 mg 24 hr tablet 03-23 00:00: 00 05-14 00:00 :00 No [id number] TAKE 1 TABLET EVERY MORNING AND TAKE 1 TABLET EVERY EVENING WITH MEALS [facility] dulaglutide (TRULICITY) 0.75 mg/0.5 mL [facility] 03-17 00:00: 00 05-14 00:00 :00 No [id number] INJECT 0.75MG (1 PEN) SUBCUTANEO USLY EVERY WEEK [facility] amLODIPine Besylate 5 MG amLODIPine Besylate 5 MG 11-15 00:00: 00 No 1{table t} QD amLODIPine Besylate 5 MG mirabegron (MYRBETRIQ) 50 mg tablet 10-30 19:09: 35 10-30 00:00 :00 No 50mg Take 50 mg by mouth daily. [facility] Insulin Glargine (LANTUS SOLOSTAR U-100 INSULIN) 100 unit/mL (3 mL) injection 10-30 12:32: 16 10-30 00:00 :00 No 68U inject 68 Units under the skin daily. Per sliding scale [facility] empaglifloz in (JARDIANCE) 25 mg Tab 10-30 00:00: 00 05-14 00:00 :00 No [id number] 25mg Take 1 tablet by mouth every morning. [facility] insulin glargine U-300 conc (TOUJEO MAX U-300 SOLOSTAR) 300 unit/mL (3 mL) InPn 10-30 00:00: 00 03-23 00:00 :00 No [id number] 80U inject 80 Units under the skin daily. E11.65 [facility] metformin ER 750 mg 24 hr tablet 10-30 00:00: 00 03-23 00:00 :00 No [id number] 750mg Take 1 tablet by mouth in the morning and 1 tablet in the evening. Take with meals. [facility] dulaglutide (TRULICITY) 0.75 mg/0.5 mL PnIj 10-30 00:00: 00 03-17 00:00 :00 No [id number] .75mg inject 1 Pen under the skin weekly. [facility] ACCU-CHEK GUIDE TEST STRIPS strip 10-20 00:00: 00 05-14 00:00 :00 No TEST 2 TIMES DAILY [facility] gabapentin 300 mg capsule 10-19 00:00: 00 11-12 00:00 :00 No [facility] JANUMET 50-1,000 mg per tablet 09-29 00:00: 00 10-30 00:00 :00 No [facility] losartan 50 mg tablet 09-14 00:00: 00 Yes [facility] benzonatate 100 mg capsule - 11:57: 13 Yes 100{cap elizabeth} Take 100 capsules by mouth daily. [facility] cetirizine 10 mg tablet 05-01 11:57: 13 Yes 10mg Take 10 mg by mouth daily. [facility] Trintellix 20 MG Trintellix 20 MG [...] 1{table t} QD Losartan Potassium 100 MG Toujeo SoloStar 300 UNIT/ML Toujeo SoloStar 300 UNIT/ML No Toujeo SoloStar 300 UNIT/ML Varenicline Tartrate 1 MG Varenicline Tartrate 1 MG No 1{table t} BID Vareniclin e Tartrate 1 MG Mounjaro 15 MG/0.5ML Mounjaro 15 MG/0.5ML No Mounjaro 15 MG/0.5ML Gabapentin 600 MG Gabapentin 600 MG No 1{table t} BID Gabapentin 600 MG tiZANidine HCl 2 MG tiZANidine HCl 2 MG No tiZANidine HCl 2 MG Albuterol Sulfate (2.5 MG/3ML) 0.083% Albuterol Sulfate (2.5 MG/3ML) 0.083% No 3{ml_as _needed } TID Albuterol Sulfate (2.5 MG/3ML) 0.083% Nebulizer Air Tube/Plugs - Nebulizer Air Tube/Plugs - No Nebulizer Air Tube/Plugs - Accu-Chek Guide Glucose Meter USE DIRECTED Accu-Chek Guide Glucose Meter USE DIRECTED No Accu-Chek Guide Glucose Meter USE DIRECTED [facility] Accu-Chek Guide L1-L2 Control Solution Accu-Chek Guide L1-L2 Control Solution No Accu-Chek Guide L1-L2 Control Solution [facility] Accu-Chek Guide test strips TEST 2 TIMES DAILY Accu-Chek Guide test strips TEST 2 TIMES DAILY No Accu-Chek Guide test strips TEST 2 TIMES DAILY [facility] Accu-Chek Softclix Lancets Accu-Chek Softclix Lancets No Accu-Chek Softclix Lancets [facility] albuterol sulfate 2.5 mg/3 mL (0.083 %) solution for nebulizatio n prn albuterol sulfate 2.5 mg/3 mL (0.083 %) solution for nebulizatio n prn No albuterol sulfate 2.5 mg/3 mL (0.083 %) solution for nebulizati on prn [facility] Alive Hair, Skin and Nails Alive Hair, Skin and Nails No Alive Hair, Skin and Nails [facility] amlodipine 5 mg tablet amlodipine 5 mg tablet No amlodipine 5 mg tablet [facility] BD Janet 2nd Gen Pen Needle [...] THE SKIN ONCE DAILY IN THE MORNING [facility] buspirone 15 mg tablet TAKE 1 TABLET BY MOUTH TWICE DAILY buspirone 15 mg tablet TAKE 1 TABLET BY MOUTH TWICE DAILY No buspirone 15 mg tablet TAKE 1 TABLET BY MOUTH TWICE DAILY [facility] iron iron No iron [facility] levothyroxi ne 75 mcg tablet TAKE 1 TABLET BY MOUTH IN THE MORNING ON AN EMPTY STOMACH FOR 90 DAYS levothyroxi ne 75 mcg tablet TAKE 1 TABLET BY MOUTH IN THE MORNING ON AN EMPTY STOMACH FOR 90 DAYS No levothyrox ine 75 mcg tablet TAKE 1 TABLET BY MOUTH IN THE MORNING ON AN EMPTY STOMACH FOR 90 DAYS [facility] losartan 100 mg tablet TAKE 1 TABLET BY MOUTH ONCE DAILY losartan 100 mg tablet TAKE 1 TABLET BY MOUTH ONCE DAILY No losartan 100 mg tablet TAKE 1 TABLET BY MOUTH ONCE DAILY [facility] Mounjaro 10 mg/0.5 mL subcutaneou s pen injector Mounjaro 10 mg/0.5 mL subcutaneou s pen injector No Mounjaro 10 mg/0.5 mL subcutaneo us pen injector [facility] Multivitami n 50 Plus Multivitami n 50 Plus No Multivitam in 50 Plus [facility] nystatin 100,000 unit/gram topical ointment APPLY TO THE AFFECTED AREA(S) BY TOPICAL ROUTE 2 TIMES PER DAY nystatin 100,000 unit/gram topical ointment APPLY TO THE AFFECTED AREA(S) BY TOPICAL ROUTE 2 TIMES PER DAY No nystatin 100,000 unit/gram topical ointment APPLY TO THE AFFECTED AREA(S) BY TOPICAL ROUTE 2 TIMES PER DAY [facility] pantoprazol e 40 mg tablet,mayra yed release TAKE 1 TABLET BY MOUTH ONCE DAILY pantoprazol e 40 mg tablet,mayra yed release TAKE 1 TABLET BY MOUTH ONCE DAILY No pantoprazo le 40 mg tablet,del ayed release TAKE 1 TABLET BY MOUTH ONCE DAILY [facility] pravastatin 20 mg tablet pravastatin 20 mg tablet No pravastati n 20 mg tablet [facility] Trintellix 20 mg tablet TAKE 1 TABLET BY MOUTH ONCE DAILY Trintellix 20 mg tablet TAKE 1 TABLET BY MOUTH ONCE DAILY No Trintellix 20 mg tablet TAKE 1 TABLET BY MOUTH ONCE DAILY [facility] Ultra Thin Lancets 31 gauge TEST 2 TIMES DAILY Ultra Thin Lancets 31 gauge TEST 2 TIMES DAILY No Ultra Thin Lancets 31 gauge TEST 2 TIMES DAILY [facility] ursodiol 250 mg tablet ursodiol 250 mg tablet No ursodiol 250 mg tablet [facility] varenicline tartrate 1 mg tablet varenicline tartrate 1 mg tablet No vareniclin e tartrate 1 mg tablet [facility] nystatin-tr iamcinolone 100,000 unit/g-0.1 % topical cream [...] PER DAY, IN THE MORNING AND EVENING [facility] Immunizations Ordered Immunization Name Filled Immunization Name Date Status Comments Source Flucelvax - single dose syringe Flucelvax - single dose syringe 2022-02-14 16:15:00 Completed [facility] Flucelvax - single dose syringe Flucelvax - single dose syringe 2022-02-14 16:15:00 Completed [facility] Flucelvax - single dose syringe Flucelvax - single dose syringe 2022-02-14 16:15:00 Completed [facility] Flucelvax - single dose syringe Flucelvax - single dose syringe 2022-02-14 16:15:00 Completed [facility] Flucelvax - single dose syringe Flucelvax - single dose syringe 2022-02-14 16:15:00 Completed [facility] Fluarix (IIV3) - SDS - 0.5mL Fluarix (IIV3) - SDS - 0.5mL 2021-01-01 14:46:00 Completed [facility] Afluria Afluria 2021-01-01 14:46:00 Completed [facility] Afluria Afluria 2021-01-01 14:46:00 Completed [facility] Afluria Afluria 2021-01-01 14:46:00 Completed [facility] Afluria Afluria 2021-01-01 14:46:00 Completed [facility] Afluria Afluria 2021-01-01 14:46:00 Completed [facility] Afluria Afluria 2021-01-01 14:46:00 Completed [facility] Afluria Afluria 2021-01-01 14:46:00 Completed [facility] Afluria Afluria 2021-01-01 14:46:00 Completed [facility] Afluria Afluria 2021-01-01 14:46:00 Completed [facility] Afluria Afluria 2021-01-01 14:46:00 Completed [facility] Afluria Afluria 2021-01-01 14:46:00 Completed [facility] Afluria Afluria 2021-01-01 14:46:00 Completed [facility] Afluria Afluria 2021-01-01 14:46:00 Completed [facility] Afluria Afluria 2021-01-01 14:46:00 Completed [facility] Afluria Afluria 2021-01-01 14:46:00 Completed [facility] [facility] Afluria Afluria 2021-01-01 14:46:00 Completed [facility] Afluria Afluria 2021-01-01 14:46:00 Completed [facility] Fluzone Fluzone 2019-04-02 08:45:00 Completed [facility] Fluzone Fluzone 2019-04-02 08:45:00 Completed [facility] Fluzone Fluzone 2019-04-02 08:45:00 Completed [facility] Fluzone Fluzone 2019-04-02 08:45:00 Completed [facility] Fluzone Fluzone 2019-04-02 08:45:00 Completed [facility] Fluzone Fluzone 2019-04-02 08:45:00 Completed [facility] Fluzone Fluzone 2019-04-02 08:45:00 Completed [facility] Fluzone Fluzone 2019-04-02 08:45:00 Completed [facility] Fluzone Fluzone 2019-04-02 08:45:00 Completed [facility] Fluzone Fluzone 2019-04-02 08:45:00 Completed [facility] Fluzone Fluzone 2019-04-02 08:45:00 Completed [facility] Fluzone Fluzone 2019-04-02 08:45:00 Completed [facility] Fluzone Fluzone 2019-04-02 08:45:00 Completed [facility] Fluzone Fluzone 2019-04-02 08:45:00 Completed [facility] Fluzone Fluzone 2019-04-02 08:45:00 Completed [facility] Fluzone Fluzone 2019-04-02 08:45:00 Completed [facility] Fluzone Fluzone 2019-04-02 08:45:00 Completed [facility] Fluzone Fluzone 2019-04-02 08:45:00 Completed [facility] Fluzone Fluzone 2019-04-02 08:45:00 Completed [facility] Fluzone Fluzone 2019-04-02 08:45:00 Completed [facility] Fluzone Fluzone 2019-04-02 00:00:00 Completed [facility] Afluria Afluria Unknown Completed [facility] Fluzone Fluzone Unknown Completed [facility] Flucelvax - single dose syringe Flucelvax - single dose syringe Unknown Completed [facility] Afluria Afluria Unknown Completed [facility] Fluzone Fluzone Unknown Completed [facility] Flucelvax - single dose syringe Flucelvax - single dose syringe Unknown Completed [facility] Flucelvax - single dose syringe Flucelvax - single dose syringe Unknown Completed [facility] Fluzone Fluzone Unknown Completed [facility] Afluria Afluria Unknown Completed [facility] Afluria Afluria Unknown Completed [facility] Fluzone Fluzone Unknown Completed [facility] Flucelvax - single dose syringe Flucelvax - single dose syringe Unknown Completed [facility] Afluria Afluria Unknown Completed [facility] Fluzone Fluzone Unknown Completed [facility] Flucelvax - single dose syringe Flucelvax - single dose syringe Unknown Completed [facility] Afluria Afluria Unknown Completed [facility] Fluzone Fluzone Unknown Completed [facility] Flucelvax - single dose syringe Flucelvax - single dose syringe Unknown Completed [facility] Afluria Afluria Unknown Completed [facility] Fluzone Fluzone Unknown Completed [facility] Flucelvax - single dose syringe Flucelvax - single dose syringe Unknown Completed [facility] Afluria Afluria Unknown Completed [facility] Fluzone Fluzone Unknown Completed [facility] Flucelvax - single dose syringe Flucelvax - single dose syringe Unknown Completed [facility] Afluria Afluria Unknown Completed [facility] Fluzone Fluzone Unknown Completed [facility] Flucelvax (ccIIV4) - SDS - 0.5mL Flucelvax (ccIIV4) - SDS - 0.5mL Unknown Completed [facility] Afluria Afluria Unknown Completed [facility] Fluzone Fluzone Unknown Completed [facility] Flucelvax (ccIIV4) - SDS - 0.5mL Flucelvax (ccIIV4) - SDS - 0.5mL Unknown Completed [facility] Afluria Afluria Unknown Completed [facility] Fluzone Fluzone Unknown Completed [facility] Flucelvax (ccIIV4) - SDS - 0.5mL Flucelvax (ccIIV4) - SDS - 0.5mL Unknown Completed [facility] Afluria Afluria Unknown Completed [facility] Fluzone Fluzone Unknown Completed [facility] Flucelvax (ccIIV4) - SDS - 0.5mL Flucelvax (ccIIV4) - SDS - 0.5mL Unknown Completed [facility] Afluria Afluria Unknown Completed [facility] Fluzone Fluzone Unknown Completed [facility] Flucelvax (ccIIV4) - SDS - 0.5mL Flucelvax (ccIIV4) - SDS - 0.5mL Unknown Completed [facility] Afluria Afluria Unknown Completed [facility] Fluzone Fluzone Unknown Completed [facility] Flucelvax (ccIIV4) - SDS - 0.5mL Flucelvax (ccIIV4) - SDS - 0.5mL Unknown Completed [facility] Afluria Afluria Unknown Completed [facility] Fluzone Fluzone Unknown Completed [facility] Flucelvax (ccIIV4) - SDS - 0.5mL Flucelvax (ccIIV4) - SDS - 0.5mL Unknown Completed [facility] Afluria Afluria Unknown Completed [facility] Fluzone Fluzone Unknown Completed [facility] Flucelvax (ccIIV4) - SDS - 0.5mL Flucelvax (ccIIV4) - SDS - 0.5mL Unknown Completed [facility] Afluria Afluria Unknown Completed [facility] Fluzone Fluzone Unknown Completed [facility] Flucelvax (ccIIV4) - SDS - 0.5mL Flucelvax (ccIIV4) - SDS - 0.5mL Unknown Completed [facility] Afluria Afluria Unknown Completed [facility] Fluzone Fluzone Unknown Completed [facility] Flucelvax (ccIIV4) - SDS - 0.5mL Flucelvax (ccIIV4) - SDS - 0.5mL Unknown Completed [facility] Afluria Afluria Unknown Completed [facility] Fluzone Fluzone Unknown Completed [facility] Flucelvax (ccIIV4) - SDS - 0.5mL Flucelvax (ccIIV4) - SDS - 0.5mL Unknown Completed [facility] Afluria Afluria Unknown Completed [facility] Fluzone Fluzone Unknown Completed [facility] Flucelvax (ccIIV4) - SDS - 0.5mL Flucelvax (ccIIV4) - SDS - 0.5mL Unknown Completed [facility] Afluria Afluria Unknown Completed [facility] Fluzone Fluzone Unknown Completed [facility] Flucelvax (ccIIV4) - SDS - 0.5mL Flucelvax (ccIIV4) - SDS - 0.5mL Unknown Completed [facility] Afluria Afluria Unknown Completed [facility] Fluzone Fluzone Unknown Completed [facility] Flucelvax (ccIIV4) - SDS - 0.5mL Flucelvax (ccIIV4) - SDS - 0.5mL Unknown Completed [facility] Afluria Afluria Unknown Completed [facility] Fluzone Fluzone Unknown Completed [facility] Flucelvax (ccIIV4) - SDS - 0.5mL Flucelvax (ccIIV4) - SDS - 0.5mL Unknown Completed [facility] Afluria Afluria Unknown Completed [facility] Fluzone Fluzone Unknown Completed [facility] Flucelvax (ccIIV4) - SDS - 0.5mL Flucelvax (ccIIV4) - SDS - 0.5mL Unknown Completed [facility] Afluria Afluria Unknown Completed [facility] Fluzone Fluzone Unknown Completed [facility] Flucelvax (ccIIV4) - SDS - 0.5mL Flucelvax (ccIIV4) - SDS - 0.5mL Unknown Completed [facility] Afluria Afluria Unknown Completed [facility] Fluzone Fluzone Unknown Completed [facility] Flucelvax (ccIIV4) - SDS - 0.5mL Flucelvax (ccIIV4) - SDS - 0.5mL Unknown Completed [facility] Afluria Afluria Unknown Completed [facility] Fluzone Fluzone Unknown Completed [facility] Flucelvax (ccIIV4) - SDS - 0.5mL Flucelvax (ccIIV4) - SDS - 0.5mL Unknown Completed [facility] Afluria Afluria Unknown Completed [facility] Fluzone Fluzone Unknown Completed [facility] Flucelvax (ccIIV4) - SDS - 0.5mL Flucelvax (ccIIV4) - SDS - 0.5mL Unknown Completed [facility] Afluria Afluria Unknown Completed [facility] Fluzone Fluzone Unknown Completed [facility] Flucelvax (ccIIV4) - SDS - 0.5mL Flucelvax (ccIIV4) - SDS - 0.5mL Unknown Completed [facility] Afluria Afluria Unknown Completed [facility] Fluzone Fluzone Unknown Completed [facility] Flucelvax (ccIIV4) - SDS - 0.5mL Flucelvax (ccIIV4) - SDS - 0.5mL Unknown Completed [facility] Afluria Afluria Unknown Completed [facility] Fluzone Fluzone Unknown Completed [facility] Flucelvax (ccIIV4) - SDS - 0.5mL Flucelvax (ccIIV4) - SDS - 0.5mL Unknown Completed [facility] Afluria Afluria Unknown Completed [facility] Fluzone Fluzone Unknown Completed [facility] Flucelvax (ccIIV4) - SDS - 0.5mL Flucelvax (ccIIV4) - SDS - 0.5mL Unknown Completed [facility] Boostrix (Tdap) Boostrix (Tdap) Unknown Completed [facility] Vital Signs Vital Name Observation Time Observation Value Comments Nidia marie height 2024-10-12 13:45:00 64.50 [in_i] Com [facility] weight 2024-10-12 13:45:00 215 [lb_av] Comm on [facility] temperature 2024-10-12 13:45:00 97.2 [degF] Com [facility] bmi 2024-10-12 13:45:00 36.33 kg/m2 Comm on [facility] oximetry 2024-10-12 13:45:00 97 % Commo n [facility] respiratory rate 2024-10-12 13:45:00 16 /min [facility] blood pressure systolic 2024-10-12 13:45:00 122 mm[Hg] [facility] blood pressure diastolic 2024-10-12 13:45:00 78 mm[Hg] [facility] height 2024-07-08 13:20:00 64.50 [in_i] Com [facility] weight 2024-07-08 13:20:00 219 [lb_av] Comm on [facility] temperature 2024-07-08 13:20:00 97.0 [degF] Com [facility] bmi 2024-07-08 13:20:00 37.01 kg/m2 Comm on [facility] oximetry 2024-07-08 13:20:00 98 % Commo [facility] respiratory rate 2024-07-08 13:20:00 16 /min [facility] blood pressure systolic 2024-07-08 13:20:00 124 mm[Hg] Common [facility] blood pressure diastolic 2024-07-08 13:20:00 72 mm[Hg] [facility] height 2024-05-12 13:20:00 64.50 [in_i] Com [facility] weight 2024-05-12 13:20:00 224 [lb_av] Comm on [facility] temperature 2024-05-12 13:20:00 97.4 [degF] Com [facility] bmi 2024-05-12 13:20:00 37.85 kg/m2 Comm on [facility] oximetry 2024-05-12 13:20:00 98 % Com[facility] respiratory rate 2024-05-12 13:20:00 16 /min [facility] blood pressure systolic 2024-05-12 13:20:00 124 mm[Hg] [facility] blood pressure diastolic 2024-05-12 13:20:00 78 mm[Hg] [facility] BMI (Body Mass Index) 2024-05-06 00:00:00 38.6 kg/m2 [facility] Weight 2024-05-06 00:00:00 225 [lb_av] [facility] Height 2024-05-06 00:00:00 64 [in_i] [facility] height 2024-04-21 15:20:00 64.50 [in_i] Com [facility] weight 2024-04-21 15:20:00 225.8 [lb_av] [facility] temperature 2024-04-21 15:20:00 97.3 [degF] Com [facility] bmi 2024-04-21 15:20:00 38.16 kg/m2 Comm on [facility] oximetry 2024-04-21 15:20:00 96 % [facility] respiratory rate 2024-04-21 15:20:00 16 /min [facility] blood pressure systolic 2024-04-21 15:20:00 136 mm[Hg] [facility] blood pressure diastolic 2024-04-21 15:20:00 70 mm[Hg] [facility] Height 2024-04-19 00:00:00 64 [in_i] [facility] BMI (Body Mass Index) 2024-04-19 00:00:00 39.3 kg/m2 [facility] Weight 2024-04-19 00:00:00 229 [lb_av] [facility] BP Diastolic 2024-04-19 00:00:00 62 mm[Hg] [facility] BP Systolic 2024-04-19 00:00:00 136 mm[Hg] [facility] height 2024-03-11 10:20:00 64.50 [in_i] Com [facility] weight 2024-03-11 10:20:00 230.4 [lb_av] Co [facility] temperature 2024-03-11 10:20:00 97.2 [degF] Com [facility] bmi 2024-03-11 10:20:00 38.93 kg/m2 Comm on [facility] oximetry 2024-03-11 10:20:00 97 % [facility] respiratory rate 2024-03-11 10:20:00 16 /min [facility] blood pressure systolic 2024-03-11 10:20:00 126 mm[Hg] [facility] blood pressure diastolic 2024-03-11 10:20:00 62 mm[Hg] [facility] height 2024-03-11 10:20:00 64.50 [in_i] Com [facility] weight 2024-03-11 10:20:00 230.4 [lb_av] [facility] temperature 2024-03-11 10:20:00 97.2 [degF] Com [facility] bmi 2024-03-11 10:20:00 38.93 kg/m2 Comm on [facility] oximetry 2024-03-11 10:20:00 97 % [facility] respiratory rate 2024-03-11 10:20:00 16 /min [facility] blood pressure systolic 2024-03-11 10:20:00 126 mm[Hg] [facility] blood pressure diastolic 2024-03-11 10:20:00 62 mm[Hg] [facility] BP Diastolic 2024-02-11 00:00:00 65 mm[Hg] [facility] Body Weight 2024-02-11 00:00:00 237.8 [lb_av] [facility] BP Systolic 2024-02-11 00:00:00 148 mm[Hg] [facility] Height 2024-02-11 00:00:00 64 [in_i] [facility] height 2024-02-09 14:00:00 64.50 [in_i] Com [facility] weight 2024-02-09 14:00:00 236 [lb_av] Comm on [facility] temperature 2024-02-09 14:00:00 97.3 [degF] Com [facility] bmi 2024-02-09 14:00:00 39.88 kg/m2 Comm on [facility] oximetry 2024-02-09 14:00:00 96 % [facility] respiratory rate 2024-02-09 14:00:00 16 /min [facility] blood pressure systolic 2024-02-09 14:00:00 144 mm[Hg] [facility] blood pressure diastolic 2024-02-09 14:00:00 70 mm[Hg] [facility] Body Weight 2024-01-22 00:00:00 238.4 [lb_av] [facility] Height 2024-01-22 00:00:00 64 [in_i] [facility] BP Systolic 2024-01-22 00:00:00 142 mm[Hg] [facility] BMI (Body Mass Index) 2024-01-22 00:00:00 40.9 kg/m2 [facility] BP Diastolic 2024-01-22 00:00:00 71 mm[Hg] [facility] Systolic blood pressure 2024-01-13 18:54:00 122 mm[Hg] [facility] Diastolic blood pressure 2024-01-13 18:54:00 80 mm[Hg] [facility] Heart rate 2024-01-13 18:54:00 65 /min [facility] 2024-01-13 18:54:00 18 /min [facility] Body height 2024-01-13 18:54:00 162.6 cm [facility] Body weight 2024-01-13 18:54:00 108.727 kg [facility] BMI 2024-01-13 18:54:00 41.14 kg/m2 [facility] Oxygen saturation in Arterial blood by Pulse oximetry 2024-01-13 18:54:00 96 /min [facility] height 2023-12-16 11:00:00 64.50 [in_i] Com [facility] weight 2023-12-16 11:00:00 240 [lb_av] Comm on [facility] temperature 2023-12-16 11:00:00 97.5 [degF] Com [facility] bmi 2023-12-16 11:00:00 40.56 kg/m2 Comm on [facility] height 2023-10-31 15:00:00 64.50 [in_i] Com [facility] weight 2023-10-31 15:00:00 240 [lb_av] Comm on [facility] temperature 2023-10-31 15:00:00 97.4 [degF] Com [facility] bmi 2023-10-31 15:00:00 40.56 kg/m2 Comm on [facility] oximetry 2023-10-31 15:00:00 97 % Com[facility] respiratory rate 2023-10-31 15:00:00 16 /min [facility] blood pressure systolic 2023-10-31 15:00:00 128 mm[Hg] [facility] blood pressure diastolic 2023-10-31 15:00:00 74 mm[Hg] [facility] height 2023-10-31 15:00:00 64.50 [in_i] Com [facility] weight 2023-10-31 15:00:00 240 [lb_av] Comm on [facility] temperature 2023-10-31 15:00:00 97.4 [degF] Com [facility] bmi 2023-10-31 15:00:00 40.56 kg/m2 Comm on [facility] oximetry 2023-10-31 15:00:00 97 % Com[facility] respiratory rate 2023-10-31 15:00:00 16 /min [facility] blood pressure systolic 2023-10-31 15:00:00 128 mm[Hg] [facility] blood pressure diastolic 2023-10-31 15:00:00 74 mm[Hg] Common [facility] height 2023-10-06 08:40:00 64.50 [in_i] Com [facility] weight 2023-10-06 08:40:00 239 [lb_av] Comm on [facility] temperature 2023-10-06 08:40:00 97.2 [degF] Com [facility] bmi 2023-10-06 08:40:00 40.39 kg/m2 Comm on [facility] oximetry 2023-10-06 08:40:00 96 % Com[facility] respiratory rate 2023-10-06 08:40:00 16 /min [facility] blood pressure systolic 2023-10-06 08:40:00 128 mm[Hg] [facility] blood pressure diastolic 2023-10-06 08:40:00 74 mm[Hg] [facility] Systolic blood pressure 2023-09-03 19:21:00 147 mm[Hg] [facility] Diastolic blood pressure 2023-09-03 19:21:00 57 mm[Hg] [facility] Heart rate 2023-09-03 19:21:00 78 /min [facility] Oxygen saturation in Arterial blood by Pulse oximetry 2023-09-03 19:21:00 96 /min [facility] Body height 2023-09-03 19:19:00 162.6 cm [facility] Body weight 2023-09-03 19:19:00 111.131 kg [facility] BMI 2023-09-03 19:19:00 42.05 kg/m2 [facility] height 2023-07-30 14:00:00 64.50 [in_i] Com [facility] weight 2023-07-30 14:00:00 242 [lb_av] Comm on [facility] temperature 2023-07-30 14:00:00 97.5 [degF] Com [facility] bmi 2023-07-30 14:00:00 40.89 kg/m2 Comm on [facility] oximetry 2023-07-30 14:00:00 97 % Commo [facility] respiratory rate 2023-07-30 14:00:00 16 /min [facility] blood pressure systolic 2023-07-30 14:00:00 126 mm[Hg] [facility] blood pressure diastolic 2023-07-30 14:00:00 74 mm[Hg] [facility] Systolic blood pressure 2023-07-08 16:48:00 142 mm[Hg] [facility] Diastolic blood pressure 2023-07-08 16:48:00 67 mm[Hg] [facility] Heart rate 2023-07-08 16:48:00 98 /min [facility] Body height 2023-07-08 16:48:00 162.6 cm [facility] Body weight 2023-07-08 16:48:00 110.133 kg [facility] BMI 2023-07-08 16:48:00 41.68 kg/m2 [facility] height 2023-06-30 15:00:00 64.50 [in_i] Com [facility] weight 2023-06-30 15:00:00 238 [lb_av] Comm on [facility] bmi 2023-06-30 15:00:00 40.22 kg/m2 Comm on [facility] blood pressure systolic 2023-06-30 15:00:00 125 mm[Hg] [facility] blood pressure diastolic 2023-06-30 15:00:00 86 mm[Hg] [facility] height 2023-05-15 13:30:00 64.50 [in_i] Com [facility] weight 2023-05-15 13:30:00 238 [lb_av] Comm on [facility] temperature 2023-05-15 13:30:00 97.6 [degF] Com [facility] bmi 2023-05-15 13:30:00 40.22 kg/m2 Comm on [facility] blood pressure systolic 2023-05-15 13:30:00 128 mm[Hg] [facility] blood pressure diastolic 2023-05-15 13:30:00 74 mm[Hg] [facility] height 2023-04-21 10:40:00 64.50 [in_i] Com [facility] weight 2023-04-21 10:40:00 238 [lb_av] Comm on [facility] temperature 2023-04-21 10:40:00 97.1 [degF] Com [facility] bmi 2023-04-21 10:40:00 40.22 kg/m2 Comm on [facility] oximetry 2023-04-21 10:40:00 99 % Commo n [facility] respiratory rate 2023-04-21 10:40:00 17 /min [facility] blood pressure systolic 2023-04-21 10:40:00 126 mm[Hg] Common [facility] blood pressure diastolic 2023-04-21 10:40:00 70 mm[Hg] [facility] height 2023-04-21 10:40:00 64.50 [in_i] Com [facility] weight 2023-04-21 10:40:00 238 [lb_av] Comm on [facility] temperature 2023-04-21 10:40:00 97.1 [degF] Com [facility] bmi 2023-04-21 10:40:00 40.22 kg/m2 Comm on [facility] oximetry 2023-04-21 10:40:00 99 % Commo n [facility] respiratory rate 2023-04-21 10:40:00 17 /min [facility] blood pressure systolic 2023-04-21 10:40:00 126 mm[Hg] [facility] blood pressure diastolic 2023-04-21 10:40:00 70 mm[Hg] [facility] height 2023-02-07 14:00:00 64.50 [in_i] Com [facility] weight 2023-02-07 14:00:00 237 [lb_av] Comm on [facility] temperature 2023-02-07 14:00:00 97.1 [degF] Com [facility] bmi 2023-02-07 14:00:00 40.05 kg/m2 Comm on [facility] oximetry 2023-02-07 14:00:00 95 % Commo n [facility] respiratory rate 2023-02-07 14:00:00 16 /min [facility] blood pressure systolic 2023-02-07 14:00:00 134 mm[Hg] Common [facility] blood pressure diastolic 2023-02-07 14:00:00 68 mm[Hg] [facility] height 2023-01-08 13:00:00 64.50 [in_i] Com [facility] weight 2023-01-08 13:00:00 232 [lb_av] Comm on [facility] temperature 2023-01-08 13:00:00 97.8 [degF] Com [facility] bmi 2023-01-08 13:00:00 39.2 kg/m2 Commo n [facility] oximetry 2023-01-08 13:00:00 97 % Commo n [facility] respiratory rate 2023-01-08 13:00:00 16 /min [facility] blood pressure systolic 2023-01-08 13:00:00 137 mm[Hg] [facility] blood pressure diastolic 2023-01-08 13:00:00 57 mm[Hg] [facility] Systolic blood pressure 2022-11-12 16:26:00 120 mm[Hg] [facility] Diastolic blood pressure 2022-11-12 16:26:00 60 mm[Hg] [facility] Heart rate 2022-11-12 16:26:00 74 /min [facility] Body height 2022-11-12 16:26:00 162.6 cm [facility] Body weight 2022-11-12 16:26:00 109.09 kg [facility] BMI 2022-11-12 16:26:00 41.28 kg/m2 [facility] Oxygen saturation in Arterial blood by Pulse oximetry 2022-11-12 16:26:00 98 /min [facility] height 2022-07-10 14:00:00 64.50 [in_i] Com [facility] weight 2022-07-10 14:00:00 232 [lb_av] Comm on [facility] temperature 2022-07-10 14:00:00 97.1 [degF] Com [facility] bmi 2022-07-10 14:00:00 39.2 kg/m2 Commo n [facility] oximetry 2022-07-10 14:00:00 97 % Commo n [facility] respiratory rate 2022-07-10 14:00:00 17 /min [facility] blood pressure systolic 2022-07-10 14:00:00 136 mm[Hg] Common [facility] blood pressure diastolic 2022-07-10 14:00:00 72 mm[Hg] Common [facility] height 2022-07-10 14:40:00 64.50 [in_i] Com [facility] weight 2022-07-10 14:40:00 232 [lb_av] Comm on [facility] temperature 2022-07-10 14:40:00 97.1 [degF] Com [facility] bmi 2022-07-10 14:40:00 39.2 kg/m2 Commo n [facility] oximetry 2022-07-10 14:40:00 97 % Commo n [facility] respiratory rate 2022-07-10 14:40:00 17 /min Common [facility] blood pressure systolic 2022-07-10 14:40:00 136 mm[Hg] Common [facility] blood pressure diastolic 2022-07-10 14:40:00 72 mm[Hg] [facility] Systolic blood pressure 2022-05-14 18:45:00 135 mm[Hg] [facility] Diastolic blood pressure 2022-05-14 18:45:00 74 mm[Hg] [facility] Heart rate 2022-05-14 18:45:00 83 /min [facility] Respiratory rate 2022-05-14 18:45:00 18 /min [facility] Body height 2022-05-14 18:45:00 162.6 cm [facility] Body weight 2022-05-14 18:45:00 106.278 kg [facility] BMI 2022-05-14 18:45:00 40.22 kg/m2 [facility] height 2022-04-11 11:00:00 64.50 [in_i] Com [facility] weight 2022-04-11 11:00:00 230 [lb_av] Comm on [facility] bmi 2022-04-11 11:00:00 38.87 kg/m2 Comm on [facility] height 2022-02-14 15:00:00 64.50 [in_i] Com [facility] weight 2022-02-14 15:00:00 228.4 [lb_av] Co mmon [facility] temperature 2022-02-14 15:00:00 97.3 [degF] Com [facility] bmi 2022-02-14 15:00:00 38.60 kg/m2 Comm on [facility] oximetry 2022-02-14 15:00:00 98 % Commo n [facility] respiratory rate 2022-02-14 15:00:00 16 /min Common [facility] blood pressure systolic 2022-02-14 15:00:00 135 mm[Hg] Common [facility] blood pressure diastolic 2022-02-14 15:00:00 70 mm[Hg] Common [facility] height 2022-01-21 13:20:00 64.50 [in_i] Com [facility] weight 2022-01-21 13:20:00 230 [lb_av] Comm on [facility] bmi 2022-01-21 13:20:00 38.87 kg/m2 Comm on [facility] height 2021-11-15 15:40:00 64.50 [in_i] Com [facility] weight 2021-11-15 15:40:00 226.8 [lb_av] Co mmon [facility] temperature 2021-11-15 15:40:00 97.2 [degF] Com [facility] bmi 2021-11-15 15:40:00 38.32 kg/m2 Comm on [facility] oximetry 2021-11-15 15:40:00 96 % Commo n [facility] respiratory rate 2021-11-15 15:40:00 16 /min [facility] blood pressure systolic 2021-11-15 15:40:00 124 mm[Hg] [facility] blood pressure diastolic 2021-11-15 15:40:00 68 mm[Hg] [facility] Systolic blood pressure 2021-10-30 16:52:00 126 mm[Hg] [facility] Diastolic blood pressure 2021-10-30 16:52:00 79 mm[Hg] [facility] Heart rate 2021-10-30 16:52:00 74 /min [facility] Body weight 2021-10-30 16:52:00 105.597 kg [facility] BMI 2021-10-30 16:52:00 39.96 kg/m2 [facility] Oxygen saturation in Arterial blood by Pulse oximetry 2021-10-30 16:52:00 98 /min [facility] height 2021-10-18 15:40:00 64.50 [in_i] Com [facility] weight 2021-10-18 15:40:00 228.8 [lb_av] Co mmon [facility] temperature 2021-10-18 15:40:00 97.4 [degF] Com [facility] bmi 2021-10-18 15:40:00 38.66 kg/m2 Comm on [facility] oximetry 2021-10-18 15:40:00 97 % Commo n [facility] respiratory rate 2021-10-18 15:40:00 16 /min Common [facility] blood pressure systolic 2021-10-18 15:40:00 130 mm[Hg] Common [facility] blood pressure diastolic 2021-10-18 15:40:00 68 mm[Hg] [facility] height 2021-09-13 15:40:00 64.50 [in_i] Com [facility] weight 2021-09-13 15:40:00 231.6 [lb_av] Co mmon [facility] temperature 2021-09-13 15:40:00 97.2 [degF] Com [facility] bmi 2021-09-13 15:40:00 39.14 kg/m2 Comm on [facility] oximetry 2021-09-13 15:40:00 96 % Commo n [facility] respiratory rate 2021-09-13 15:40:00 16 /min [facility] blood pressure systolic 2021-09-13 15:40:00 140 mm[Hg] Common [facility] blood pressure diastolic 2021-09-13 15:40:00 82 mm[Hg] Common [facility] height 2021-08-14 13:00:00 64.50 [in_i] Com [facility] weight 2021-08-14 13:00:00 231 [lb_av] Comm on [facility] temperature 2021-08-14 13:00:00 96.8 [degF] Com [facility] bmi 2021-08-14 13:00:00 39.03 kg/m2 Comm on [facility] oximetry 2021-08-14 13:00:00 98 % Commo n [facility] respiratory rate 2021-08-14 13:00:00 16 /min Common [facility] blood pressure systolic 2021-08-14 13:00:00 155 mm[Hg] Common [facility] blood pressure diastolic 2021-08-14 13:00:00 70 mm[Hg] [facility] height 2021-06-05 14:00:00 64.50 [in_i] Com [facility] weight 2021-06-05 14:00:00 233 [lb_av] Comm on [facility] temperature 2021-06-05 14:00:00 96.7 [degF] Com [facility] bmi 2021-06-05 14:00:00 39.37 kg/m2 Comm on [facility] blood pressure systolic 2021-06-05 14:00:00 146 mm[Hg] [facility] blood pressure diastolic 2021-06-05 14:00:00 84 mm[Hg] [facility] height 2021-05-11 13:20:00 64.50 [in_i] Com [facility] weight 2021-05-11 13:20:00 228.7 [lb_av] Co mmon [facility] temperature 2021-05-11 13:20:00 97.8 [degF] Com [facility] bmi 2021-05-11 13:20:00 38.65 kg/m2 Comm on [facility] oximetry 2021-05-11 13:20:00 98 % Commo n [facility] respiratory rate 2021-05-11 13:20:00 18 /min Common [facility] blood pressure systolic 2021-05-11 13:20:00 139 mm[Hg] [facility] pressure diastolic 2021-05-11 13:20:00 67 mm[Hg] [facility] height 2021-05-11 14:00:00 64.50 [in_i] Com [facility] weight 2021-05-11 14:00:00 228.7 [lb_av] Co mmon [facility] temperature 2021-05-11 14:00:00 97.8 [degF] Com [facility] bmi 2021-05-11 14:00:00 38.65 kg/m2 Comm on [facility] blood pressure systolic 2021-05-11 14:00:00 139 mm[Hg] Common [facility] blood pressure diastolic 2021-05-11 14:00:00 67 mm[Hg] [facility] height 2021-04-02 15:20:00 64.50 [in_i] Com [facility] weight 2021-04-02 15:20:00 228 [lb_av] Comm on [facility] temperature 2021-04-02 15:20:00 96.9 [degF] Com [facility] bmi 2021-04-02 15:20:00 38.53 kg/m2 Comm on [facility] oximetry 2021-04-02 15:20:00 97 % Commo n [facility] respiratory rate 2021-04-02 15:20:00 19 /min [facility] blood pressure systolic 2021-04-02 15:20:00 138 mm[Hg] [facility] blood pressure diastolic 2021-04-02 15:20:00 65 mm[Hg] [facility] height 2020-12-22 10:00:00 64.50 [in_i] Com [facility] weight 2020-12-22 10:00:00 220 [lb_av] Comm on [facility] bmi 2020-12-22 10:00:00 37.18 kg/m2 Comm on [facility] height 2020-12-13 12:20:00 64.50 [in_i] Com [facility] weight 2020-12-13 12:20:00 220 [lb_av] Comm on [facility] bmi 2020-12-13 12:20:00 37.18 kg/m2 Comm on [facility] Respiratory Rate 2024-04-21 14:17:00 16.00 /min Bo [...] Performing Clinician Source US TRANSVAGINAL 2024-04-22 00:00:00 [facility] Medical MAMMO, screening, digital, bilateral 2024-04-19 00:00:00 [facility] POCT HEMOGLOBIN A1C TEST 2024-01-13 19:08:[address] [facility] Repair of Umbilical Hernia 2024-01-01 00:00:00 [facility] LAB RESULTS ([facility]) 2023-11-03 18:48:45 Docto r Unassigned, [place] [facility] HB ECG ROUTINE & RHYTHM STRIP 2023-09-03 19:26:[address] [facility] REFERRAL- REQUEST/RESPONSE 2023-08-04 13:13:39 D octor Unassigned, [place] [facility] CT ABDOMEN W WO CONTRAST 2023-07-12 17:16:[address] [facility] HB CREATININE SERUM/BLOOD FOR IMAGING 2023-07-12 16:14:[address] [facility] REFERRAL- REQUEST/RESPONSE 2023-07-09 15:44:52 D octor Unassigned, [place] [facility] POCT HEMOGLOBIN A1C TEST 2023-07-08 20:35:[address] [facility] DIABETES TESTING REPORTS 2022-11-12 05:01:00 Doc tor Unassigned, [place] [facility] REFERRAL- REQUEST/RESPONSE 2022-05-14 06:01:00 D octor Unassigned, [place] [facility] EXTERNAL PROVIDER RECORDS 2021-11-26 05:01:00 Do ctor Unassigned, [place] [facility] Hysteroscopy 2018-03-10 00:00:00 Tomi M edical Cholecystectomy (Gallbladder) 1996-03-10 00:00:00 [facility] Breast Reduction 1996-03-10 00:00:00 [facility] Medical Encounters Start Date/Time End Date/Time Encounter Type Admission Type Attending [facility] Emergency Department Facility Care Department Encounter ID Source 2023-09-05 15:25:00 Outpatient Gonzalez, Chayo STLMLC STLC [id number] [facility] 2023-07-30 13:58:00 Outpatient Gonzalez Chayo STLMLC STLMLC [id number] [facility] 2023-06-04 10:11:00 Outpatient Gonzalez, Chayo STLMLC STLMLC [id number] [facility] 2023-05-12 14:47:00 Outpatient Gonzalez, Chayo STLMLC STLMLC [id number] [facility] 2023-05-05 15:12:00 Outpatient Gonzalez, Chayo STLMLC STLMLC [id number] [facility] 2023-03-25 11:13:00 Outpatient Gonzalez, Chayo STLMLC STLMLC [id number] [facility] 2022-07-09 13:18:00 Outpatient Gonzalez, Chayo STLMLC STLMLC [id number] [facility] 2022-05-28 14:00:00 Outpatient Gonzalez, Chayo STLMLC STLMLC [id number] [facility] 2022-04-29 11:47:01 Outpatient Gonzalez, Chayo STLMLC STLC [id number] [facility] 2022-04-11 11:02:01 Outpatient Chayo Gonzalez STLMLC STLMLC [id number] [facility] 2022-04-10 09:38:01 Outpatient Chayo Gonzalez STLMLC STLMLC [id number] [facility] 2022-04-04 15:02:00 Outpatient Chayo Gonzalez STLMLC STLMLC [id number] [facility] 2022-02-13 07:36:00 Outpatient Ruelas, Na STLMLC STLMLC [id number] [facility] 2022-01-17 11:35:01 Outpatient Ruelas, Na STLMLC STLMLC [id number] [facility] 2021-12-14 09:46:00 Outpatient Ruelas, Na STLMLC STLMLC [id number] [facility] 2021-10-16 15:14:01 Outpatient Ruelas, Na STLMLC STLMLC [id number] [facility] 2021-09-12 15:57:01 Outpatient Ruelas, Na STLMLC STLMLC [id number] [facility] 2021-09-11 10:21:01 Outpatient Ruelas, Na STLMLC STLMLC [id number] [facility] 2021-08-13 13:31:00 Outpatient Ruelas, Na STLMLC STLMLC [id number] [facility] 2021-05-18 11:01:01 Outpatient Ruelas, Na STLMLC STLMLC [id number] [facility] 2021-05-11 13:17:01 Outpatient Ruelas, Na STLMLC STLMLC [id number] [facility] 2021-05-10 09:35:00 Outpatient Ruelas, Na STLMLC STLMLC [id number] [facility] 2021-05-09 11:36:01 Outpatient Ruelas, Na STLMLC STLMLC [id number] [facility] 2021-04-10 14:01:01 Outpatient Ruelas, Na STLMLC STLMLC [id number] [facility] 2021-04-04 14:35:57 Outpatient Ruelas, Na STLMLC STLMLC [id number] [facility] 2021-04-04 14:32:10 Outpatient Ruelas, Na STLMLC STLMLC [id number] [facility] 2021-04-04 14:26:31 Outpatient Ruelas, Na STLMLC STLMLC [id number] [facility] 2021-04-04 14:22:06 Outpatient Ruelas, Na STLMLC STLMLC [id number] [facility] 2021-04-04 13:47:57 Outpatient Ruelas, Na STLMLC STLMLC [id number] [facility] 2021-04-04 13:31:15 Outpatient Jessenia, Na STLMLC STLMLC [id number] [facility] 2021-04-04 13:17:49 Outpatient Ruelas, Na STLMLC STLMLC [id number] [facility] 2021-04-04 13:15:11 Outpatient Ruelas, Na STLMLC STLMLC [id number] [facility] 2021-04-04 12:56:33 Outpatient Ruelas, Na STLMLC STLMLC [id number] [facility] 2021-04-04 12:51:32 Outpatient Ruelas, Na STLMLC STLMLC [id number] [facility] 2021-04-04 12:45:45 Outpatient Ruelas, Na STLMLC STLMLC [id number] [facility] 2021-04-04 12:44:50 Outpatient Ruelas, Na STLMLC STLMLC [id number] [facility] 2021-04-04 12:26:48 Outpatient Ruelas, Na STLMLC STLMLC [id number] [facility] 2021-04-04 12:25:49 Outpatient Ruelas, Na STLMLC STLMLC [id number] [facility] 2021-04-04 12:12:47 Outpatient Ruelas, Na STLMLC STLMLC [id number] [facility] 2021-04-04 12:03:01 Outpatient Ruelas, Na STLMLC STLMLC [id number] [facility] 2021-04-04 12:02:32 Outpatient Ruelas, Na STLMLC STLMLC [id number] [facility] 2021-04-04 11:46:04 Outpatient Ruelas, Na STLMLC STLMLC [id number] [facility] 2021-04-04 11:45:14 Outpatient Ruelas, Na STLMLC STLMLC [id number] [facility] 2021-04-04 11:44:02 Outpatient Ruelas, Na STLMLC STLMLC [id number] [facility] 2021-04-04 11:26:10 Outpatient Ruelas, Na STLMLC STLMLC [id number] [facility] 2021-04-04 11:25:37 Outpatient Ruelas, Na STLMLC STLMLC [id number] [facility] 2021-04-04 11:02:45 Outpatient Ruelas, Na STLMLC STLMLC [id number] [facility] 2020-04-11 11:00:00 Inpatient Amado Fongory [facility] [id number] [facility] 2020-03-07 14:40:00 Inpatient Luis Fong [facility] [id number] [facility] 2024-10-12 00:00:00 2024-10-12 00:00:00 OFFICE VISIT ESTAB PT LEVEL 4 STLMLC STLMLC [id number] [facility] 2024-09-23 00:00:00 2024-09-23 11:32:25 Telephone [facility] 1.2.840.114 350.1.13.10 4.2.7.2.686 [id number] [facility] 2024-09-21 14:30:00 2024-09-21 14:30:00 Outpatient R DAMON [facility] [id number] [facility] 2024-09-09 00:00:00 2024-09-09 00:00:00 (TEL) STLC STLC [id number] [facility] 2024-08-20 00:00:00 2024-08-23 08:00:47 Refill [facility] 1..840.114 350.1.13.10 4.2.7.2.686 [id number] [facility] 2024-08-09 00:00:00 2024-08-09 16:53:39 Telephone Damon [facility] 1.2.840.114 350.1.13.10 4.2.7.2.686 [id number] [facility] 2024-07-19 00:00:00 2024-07-19 09:59:43 Refill Chauncey Ohara [facility] 1.2.840.114 350.1.13.10 4.2.7.2.686 [id number] [facility] 2024-07-13 13:00:00 2024-07-13 13:00:00 Outpatient R DAMON [facility] [id number] [facility] 2024-07-08 00:00:00 2024-07-08 00:00:00 OFFICE VISIT ESTAB PT LEVEL 4 STLMLC STLMLC [id number] [facility] 2023-03-19 00:00:00 2024-07-01 21:12:43 [facility] 1.2.840.114 350.1.13.10 4.2.7.2.686 [id number] [facility] 2024-06-28 00:00:00 2024-06-28 00:00:00 (TEL) STLMLC STLMLC [id number] [facility] 2024-06-21 00:00:00 2024-06-21 00:00:00 (TEL) STLMLC STLMLC [id number] [facility] 2024-06-09 00:00:00 2024-06-09 00:00:00 (TEL) STLMLC STLMLC [id number] [facility] 2024-06-02 00:00:00 2024-06-03 11:19:30 Refill Jose [facility] 1.2.840.114 350.1.13.10 4.2.7.2.686 [id number] [facility] 2024-06-02 00:00:00 2024-06-02 00:00:00 (TEL) STLMLC STLMLC [id number] [facility] 2024-05-31 00:00:00 2024-05-31 00:00:00 (TEL) STLMLC STLMLC [id number] [facility] 2024-05-12 00:00:00 2024-05-12 16:18:32 Telephone Damon [facility] 1..840.114 350.1.13.10 4.2.7.2.686 [id number] [facility] 2024-05-12 00:00:00 2024-05-12 00:00:00 OFFICE VISIT ESTAB PT LEVEL 4 STLC STLC [id number] [facility] 2024-05-12 00:00:00 2024-05-12 00:00:00 (TEL) [facility] [id number] [facility] 2024-05-06 00:00:00 2024-05-06 00:00:00 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 [facility] - GC_GCBZW_[facility]* [id number] [facility] 2024-04-27 00:00:00 2024-04-27 00:00:00 (TEL) [facility] [id number] [facility] 2023-08-04 00:00:00 2024-04-24 07:41:23 Orders Only Doctor Unassigned, [place] Doctor Unassigned, [place] [facility] 1..840.114 350.1.13.10 4.2.7.2.686 [id number] [facility] 2023-11-03 00:00:00 2024-04-24 07:04:16 Orders Only Doctor Unassigned, [place] Doctor Unassigned, [place] [facility] 1..840.114 350.1.13.10 4.2.7.2.686 [id number] [facility] 2023-07-09 00:00:00 2024-04-24 02:07:22 Orders Only Doctor Unassigned, [place] Doctor Unassigned, [place] [facility] 1.2.840.114 350.1.13.10 4.2.7.2.686 [id number] [facility] 2024-04-22 00:00:00 2024-04-22 00:00:00 Sulma Soriano MD: [address], [place] [address] , Ph. [facility] GC_GCBZW_[facility]* [id number] [facility] 2024-04-21 14:06:53 2024-04-21 14:06:53 Outpatient [facility]FA [facility] [id number] Bo Nunn 2024-04-21 00:00:00 2024-04-21 00:00:00 Outpatient Visit [facility] [id number] Bo Ortiz Edouard 2024-04-21 00:00:00 2024-04-21 00:00:00 (TEL) STLMLC STLMLC [id number] [facility] 2024-04-21 00:00:00 2024-04-21 00:00:00 OFFICE VISIT ESTAB PT LEVEL 3 STLMLC STLMLC [id number] [facility] 2024-04-19 00:00:00 2024-04-19 00:00:00 PALLAVI Nelson: [address], [place] [address] , Ph. [facility] - GC_GCBZW_Marilia beard Savage* [id number] [facility] 2024-03-31 00:00:00 2024-04-01 14:30:49 Teresa Nova [facility] ..840.114 350.1.13.10 4.2.7.2.686 [id number] [facility] 2024-03-24 00:00:00 2024-03-24 00:00:00 (TEL) STLC STLC [id number] [facility] 2024-03-18 00:00:00 2024-03-19 08:16:28 Teresa Nova [facility] 1.2.840.114 350.1.13.10 4.2.7.2.686 [id number] [facility] 2024-03-11 00:00:00 2024-03-11 00:00:00 SUB ANNUAL [facility] WELLNESS VISIT STLMLC STLC [id number] [facility] 2024-03-11 00:00:00 2024-03-11 00:00:00 OFFICE VISIT ESTAB PT LEVEL 4 STLMLC STLC [id number] [facility] 2024-02-11 00:00:00 2024-02-11 00:00:00 ALEJANDRO Arevalo: [address], [place] [address] , Ph. [facility] - GC_GCBZW_Marilia beard [place]* [id number] [facility] 2024-02-09 00:00:00 2024-02-09 00:00:00 OFFICE VISIT ESTAB PT LEVEL 4 [facility] STLC [id number] [facility] 2024-02-07 00:00:00 2024-02-07 00:00:00 (TEL) [facility] [id number] [facility] 2024-01-22 00:00:00 2024-01-22 00:00:00 ALEJANDRO Bales: [address], [place] [address] , Ph. [facility] - GC_GCBZW_Marilia baerd [place]* [id number] [facility] 2024-01-13 14:00:00 2024-01-13 15:41:38 Operations Lieutenant Visit Lab, Ang - Teresa Farah Lab, Ang - [facility] HIGINIO?[facility] 1.84.114 350.1.13.10 4.2.7.2.686 [id number] 353 [id number] [facility] 2024-01-13 13:00:00 2024-01-13 13:48:19 Outpatient R DAMON [facility] [id number] [facility] 2024-01-13 13:00:00 2024-01-13 13:48:19 Office Visit Damon [facility] HIGINIO?[facility] 1.84.114 350.1.13.10 4.2.7.2.686 [id number] [facility] 2023-12-27 00:00:00 2023-12-29 08:10:31 [facility] OFF[facility] BUILD[facility] 1.84.114 350.1.13.10 4.2.7.2.686 [id number] 220 [id number] [facility] 2023-12-25 00:00:00 2023-12-25 00:00:00 (TEL) STLMLC STLMLC [id number] [facility] 2023-12-16 00:00:00 2023-12-16 00:00:00 (INJ) Injection STLMLC STLMLC [id number] [facility] 2023-12-11 00:00:00 2023-12-15 10:50:39 Refill Damon [facility] HIGINIO?[facility] 1.84.114 350.1.13.10 4.2.7.2.686 [id number] 220 [id number] [facility] 2023-12-05 00:00:00 2023-12-08 10:54:19 Refill Damon [facility] HIGINIO?[facility] 1.84.114 350.1.13.10 4.2.7.2.686 [id number] 220 [id number] [facility] 2023-10-31 00:00:00 2023-10-31 00:00:00 OFFICE VISIT ESTAB PT LEVEL 4 STLMLC STLMLC [id number] [facility] 2023-10-20 00:00:00 2023-10-23 10:02:33 Telephone Damon [facility] OFFICE BUILDING 1.2.840.114 350.1.13.10 4.2.7.2.686 [id number] [facility] 2023-10-09 00:00:00 2023-10-21 15:50:56 Refill Damon [facility] OFFICE BUILD[facility] 1..840.114 350.1.13.10 4.2.7.2.686 [id number] 220 [id number] [facility] 2023-10-21 00:00:00 2023-10-21 00:00:00 (TEL) STLMLC STLMLC [id number] [facility] 2023-10-20 00:00:00 2023-10-20 00:00:00 (TEL) STLMLC STLMLC [id number] [facility] 2023-10-08 00:00:00 2023-10-08 00:00:00 (TEL) STLMLC STLMLC [id number] [facility] 2023-10-06 00:00:00 2023-10-06 00:00:00 OFFICE VISIT ESTAB PT LEVEL 3 STLMLC STLMLC [id number] [facility] 2023-09-11 00:00:00 2023-09-18 10:53:19 Patient Secure duncan June [facility] 1..840.114 350.1.13.10 4.2.7.2.686 [id number] [facility] 2023-09-03 14:00:00 2023-09-03 15:17:18 Outpatient Sergio [facility]ADE [facility] [id number] [facility] 2023-09-03 14:00:00 2023-09-03 15:17:18 Office Visit Sergio [facility] 1..840.114 350.1.13.10 4.2.7.2.686 [id number] [facility] 2023-08-26 12:00:00 2023-08-26 12:00:00 Outpatient Sergio [facility] [id number] [facility] 2023-07-11 00:00:00 2023-08-16 18:04:46 Patient Secure Msg Doctor Unassigned, [place] [facility] 1..840.114 350.1.13.10 4.2.7.2.686 [id number] [facility] 2023-07-31 00:00:00 2023-07-31 00:00:00 (TEL) STLC STLC [id number] [facility] 2023-07-30 00:00:00 2023-07-30 00:00:00 OFFICE VISIT ESTAB PT LEVEL 4 STLMLC STLC [id number] [facility] 2023-07-30 00:00:00 2023-07-30 00:00:00 (TEL) STLMLC STLMLC [id number] [facility] 2023-07-30 00:00:00 2023-07-30 00:00:00 (TEL) STLC STLMLC [id number] [facility] 2023-07-29 12:00:00 2023-07-29 12:15:00 Operations Lieutenant Visit Lab, Navin - Teresa [facility] 1..840.114 350.1.13.10 4.2.7.2.686 [id number] [facility] 2023-07-29 12:00:00 2023-07-29 11:01:43 Outpatient R DAMON [facility] [id number] [facility] 2023-07-23 00:00:00 2023-07-24 12:12:21 Telephone Damon [facility] MEDICAL OFFICE BUILD[facility] 1.2.840.114 350.1.13.10 4.2.7.2.686 [id number] 220 [id number] [facility] 2023-07-17 12:45:00 2023-07-17 13:00:00 Operations Lieutenant Visit Lab, Navin Bowden Damon [facility] MEDICAL OFFICE [facility] 1.2.840.114 350.1.13.10 4.2.7.2.686 [id number] [facility] 2023-07-17 12:45:00 2023-07-17 12:45:00 Outpatient R DAMON [facility] [id number] [facility] 2023-07-14 00:00:00 2023-07-14 00:00:00 (TEL) STLMLC STLMLC [id number] [facility] 2023-07-12 10:40:02 2023-07-12 23:59:00 Outpatient R DAMON [facility] [id number] [facility] 2023-07-12 10:40:02 2023-07-12 23:59:00 [facility] 1.2.840.114 350.1.13.10 4.2.7.2.686 [id number] [facility] 2023-07-08 11:30:00 2023-07-08 12:29:51 Outpatient R DAMON [facility] [id number] [facility] 2023-07-08 11:30:00 2023-07-08 12:29:51 Office Visit Teresa Jose [facility] OFF[facility] BUILD[facility] 1.2.840.114 350.1.13.10 4.2.7.2.686 [id number] 220 [id number] [facility] 2023-07-07 00:00:00 2023-07-07 00:00:00 (TEL) STLMLC STLMLC [id number] [facility] 2023-06-30 00:00:00 2023-06-30 00:00:00 (F/U) Follow Up Visit STLMLC STLMLC [id number] [facility] 2023-06-13 16:30:00 2023-06-13 16:30:00 Outpatient R SAFIA HOGAN [facility] [id number] [facility] 2023-06-03 00:00:00 2023-06-03 00:00:00 (TEL) STLMLC STLMLC [id number] [facility] 2023-05-27 00:00:00 2023-05-27 00:00:00 (TEL) STLMLC STLMLC [id number] [facility] 2023-05-16 00:00:00 2023-05-16 00:00:00 (TEL) STLMLC STLMLC [id number] [facility] 2023-05-15 00:00:00 2023-05-15 00:00:00 (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 STLMLC STLMLC [id number] [facility] 2023-05-07 00:00:00 2023-05-07 00:00:00 (TEL) STLMLC STLMLC [id number] [facility] 2023-05-02 00:00:00 2023-05-02 00:00:00 (TEL) STLMLC STLMLC [id number] [facility] 2023-04-30 00:00:00 2023-04-30 00:00:00 (TEL) STLMLC STLMLC [id number] [facility] 2023-04-21 00:00:00 2023-04-21 00:00:00 OFFICE VISIT ESTAB PT LEVEL 4 STLMLC STLMLC [id number] [facility] 2023-04-21 00:00:00 2023-04-21 00:00:00 SUB ANNUAL [facility] WELLNESS VISIT STLMLC STLMLC [id number] [facility] 2023-04-16 00:00:00 2023-04-16 00:00:00 Refill Damon [facility] MEDICAL OFFICE BUILD[facility] 1.2.840.114 350.1.13.10 4.2.7.2.686 [id number] 220 [id number] [facility] 2023-04-09 00:00:00 2023-04-09 00:00:00 Telephone Damon [facility] MEDICAL OFFICE BUILD[facility] 1.2.840.114 350.1.13.10 4.2.7.2.686 [id number] [facility] 2023-04-03 00:00:00 2023-04-03 00:00:00 (TEL) STLMLC STLMLC [id number] [facility] 2023-03-23 00:00:00 2023-03-23 00:00:00 (WEB) STLMLC STLMLC [id number] [facility] 2023-03-21 00:00:00 2023-03-21 00:00:00 (TEL) STLMLC STLMLC [id number] [facility] 2023-03-18 13:30:00 2023-03-18 13:30:00 Outpatient R DAMON [facility] [id number] [facility] 2023-03-04 00:00:00 2023-03-04 00:00:00 (TEL) STLMLC STLMLC [id number] [facility] 2023-02-19 00:00:00 2023-02-19 00:00:00 Refill Damon [facility] MED[facility] OFF[facility] BUILD[facility] 1.2.840.114 350.1.13.10 4.2.7.2.686 [id number] 220 [id number] [facility] 2023-02-07 00:00:00 2023-02-07 00:00:00 OFFICE VISIT ESTAB PT LEVEL 4 STLMLC STLMLC [id number] [facility] 2023-01-30 00:00:00 2023-01-30 00:00:00 Refill Jose [facility] 1.2.840.114 350.1.13.10 4.2.7.2.686 [id number] [facility] 2023-01-08 00:00:00 2023-01-08 00:00:00 OFFICE VISIT ESTAB PT LEVEL 4 STLMLC STLMLC [id number] [facility] 2023-01-06 00:00:00 2023-01-06 00:00:00 (TEL) STLMLC STLMLC [id number] [facility] 2022-12-23 00:00:00 2022-12-23 00:00:00 Refill Damon [facility] MEDICAL OFFICE BUILDING 1.2.840.114 350.1.13.10 4.2.7.2.686 [id number] [facility] 2022-12-23 00:00:00 2022-12-23 00:00:00 (TEL) STLMLC STLMLC [id number] [facility] 2022-11-14 00:00:00 2022-11-14 00:00:00 (TEL) STLMLC STLMLC [id number] [facility] 2022-11-12 11:30:00 2022-11-12 15:15:39 Outpatient R DAMON [facility] [id number] [facility] 2022-11-12 11:30:00 2022-11-12 15:15:39 Office Visit Teresa Jose [facility]ILD[facility] 1.2.840.114 350.1.13.10 4.2.7.2.686 [id number] [facility] 2022-11-12 00:00:00 2022-11-12 00:00:00 Orders Only Doctor Unassigned, [place] [facility] 1.2.840.114 350.1.13.10 4.2.7.2.686 [id number] [facility] 2022-11-08 00:00:00 2022-11-08 00:00:00 (TEL) STLC STLC [id number] [facility] 2022-10-14 00:00:00 2022-10-14 00:00:00 (TEL) STLC STLC [id number] [facility] 2022-09-02 00:00:00 2022-09-02 00:00:00 (TEL) STLC STLC [id number] [facility] 2022-07-29 00:00:00 2022-07-29 00:00:00 Patient Secure Msg Doctor Unassigned, [place] [facility] 1.2.840.114 350.1.13.10 4.2.7.2.686 [id number] [facility] 2022-07-16 00:00:00 2022-07-16 00:00:00 (TEL) STLC STLC [id number] [facility] 2022-07-10 00:00:00 2022-07-10 00:00:00 OFFICE VISIT ESTAB PT LEVEL 4 [facility] [id number] [facility] 2022-07-10 00:00:00 2022-07-10 00:00:00 SUB ANNUAL [facility] WELLNESS VISIT [facility] [id number] [facility] 2022-05-28 00:00:00 2022-05-28 00:00:00 (TEL) STLMLC STLMLC [id number] [facility] 2022-05-16 15:30:00 2022-05-16 15:45:00 Operations Lieutenant Visit Lab, Navin - Kal Damon [facility] MEDICAL OFFICE BUILD[facility] 1..840.114 350.1.13.10 4.2.7.2.686 [id number] [facility] 2022-05-16 15:30:00 2022-05-16 15:30:00 Outpatient R DAMON [facility] [id number] [facility] 2022-05-15 00:00:00 2022-05-15 00:00:00 (TEL) STLMLC STLMLC [id number] [facility] 2022-05-14 13:45:00 2022-05-14 14:00:00 Operations Lieutenant Visit Lab, Navin - Kal Jose [facility] MEDICAL OFFICE BUILDING 1..840.114 350.1.13.10 4.2.7.2.686 [id number] [facility] 2022-05-14 13:00:00 2022-05-14 13:39:09 Outpatient R DAMON [facility] [id number] [facility] 2022-05-14 13:00:00 2022-05-14 13:39:09 Office Visit Damon [facility] MEDICAL OFFICE BUILDING 1..840.114 350.1.13.10 4.2.7.2.686 [id number] [facility] 2022-05-14 00:00:00 2022-05-14 00:00:00 Telephone Jose [facility] MEDICAL OFFICE BUILDING 1..840.114 350.1.13.10 4.2.7.2.686 [id number] 220 [id number] [facility] 2022-05-14 00:00:00 2022-05-14 00:00:00 Orders Only Doctor Unassigned, [place] [facility] 1.0.114 350.1.13.10 4.2.7.2.686 [id number] [facility] 2022-04-25 00:00:00 2022-04-25 00:00:00 (TEL) STLMLC STLMLC [id number] [facility] 2022-04-22 00:00:00 2022-04-22 00:00:00 (TEL) STLMLC STLMLC [id number] [facility] 2022-04-11 00:00:00 2022-04-11 00:00:00 OFFICE VISIT ESTAB PT LEVEL 4 STLMLC STLMLC [id number] [facility] 2022-04-09 11:30:00 2022-04-09 11:30:00 Outpatient R DAMON [facility] [id number] [facility] 2022-04-08 00:00:00 2022-04-08 00:00:00 Telephone Damon [facility] HIGINIO?[facility] MEDICAL OFF[facility] BUILD[facility] 1..114 350.1.13.10 4.2.7.2.686 [id number] [facility] 2022-03-27 00:00:00 2022-03-27 00:00:00 Refill Damon [facility] H[facility]INIO[facility] MEDICAL OFFICE BUILDING 1.84.114 350.1.13.10 4.2.7.2.686 [id number] [facility] 2022-03-20 00:00:00 2022-03-20 00:00:00 Refill Damon [facility] HIGINIO?[facility] MEDICAL OFFICE BUILD[facility] 1..114 350.1.13.10 4.2.7.2.686 [id number] 220 [id number] [facility] 2022-03-17 00:00:00 2022-03-17 00:00:00 Refill Damon [facility] MEDICAL OFF[facility] BUILDING 1..840.114 350.1.13.10 4.2.7.2.686 [id number] 220 [id number] [facility] 2022-03-08 00:00:00 2022-03-08 00:00:00 Patient Secure [facility] 1..840.114 350.1.13.10 4.2.7.2.686 [id number] 220 [id number] [facility] 2022-02-20 00:00:00 2022-02-20 00:00:00 (TEL) STLMLC STLMLC [id number] [facility] 2022-02-14 00:00:00 2022-02-14 00:00:00 OFFICE VISIT EST PT LEVEL 3 STLMLC STLMLC [id number] [facility] 2022-01-27 00:00:00 2022-01-27 00:00:00 (WEB) STLMLC STLMLC [id number] [facility] 2022-01-25 00:00:00 2022-01-25 00:00:00 [facility] 1..840.114 350.1.13.10 4.2.7.2.686 [id number] [facility] 2022-01-24 00:00:00 2022-01-24 00:00:00 (WEB) STLMLC STLMLC [id number] [facility] 2022-01-21 00:00:00 2022-01-21 00:00:00 OL DIG E/M SVC 11-20 MIN STLMLC STLMLC [id number] [facility] 2022-01-09 00:00:00 2022-01-09 00:00:00 (TEL) STLMLC STLMLC [id number] [facility] 2021-12-20 00:00:00 2021-12-20 00:00:00 (WEB) STLMLC STLMLC [id number] [facility] 2021-11-26 00:00:00 2021-11-26 00:00:00 Orders Only Doctor Unassigned, [place] [facility] 1.2.840.114 350.1.13.10 4.2.7.2.686 [id number] [facility] 2021-11-15 00:00:00 2021-11-15 00:00:00 OFFICE VISIT EST PT LEVEL 3 STLMLC STLMLC [id number] [facility] 2021-10-30 12:00:00 2021-10-30 12:53:55 Outpatient R DAMON [facility] [id number] [facility] 2021-10-30 12:00:00 2021-10-30 12:53:55 [facility] BUILD[facility] 1.2.840.114 350.1.13.10 4.2.7.2.686 [id number] [facility] 2021-10-23 00:00:00 2021-10-23 00:00:00 (TEL) STLMLC STLMLC [id number] [facility] 2021-10-20 00:00:00 2021-10-20 00:00:00 (TEL) STLMLC STLMLC [id number] [facility] 2021-10-18 00:00:00 2021-10-18 00:00:00 OFFICE VISIT EST PT LEVEL 3 STLMLC STLMLC [id number] [facility] 2021-09-13 00:00:00 2021-09-13 00:00:00 OFFICE VISIT EST PT LEVEL 3 STLMLC STLMLC [id number] [facility] 2021-08-31 00:00:00 2021-08-31 00:00:00 (TEL) STLMLC STLMLC [id number] [facility] 2021-08-14 00:00:00 2021-08-14 00:00:00 OFFICE VISIT EST PT LEVEL 3 STLMLC STLMLC [id number] [facility] 2021-08-10 00:00:00 2021-08-10 00:00:00 Patient Secure Msg [facility] 1..840.114 350.1.13.10 4.2.7.2.686 [id number] [facility] 2021-08-08 00:00:00 2021-08-08 00:00:00 (TEL) STLMLC STLMLC [id number] [facility] 2021-08-03 00:00:00 2021-08-03 00:00:00 (TEL) STLMLC STLMLC [id number] [facility] 2021-06-05 00:00:00 2021-06-05 00:00:00 OFFICE VISIT NEW PT LEVEL 4 STLMLC STLMLC [id number] [facility] 2021-05-30 00:00:00 2021-05-30 00:00:00 (TEL) STLMLC STLMLC [id number] [facility] 2021-05-21 14:28:47 2021-05-21 23:59:00 Outpatient R TERESA JOSE [facility] [id number] [facility] 2021-05-21 14:00:00 2021-05-21 23:59:00 Hospital Encounter Teresa Jose [facility] 1..840.114 350.1.13.10 4.2.7.2.686 [id number] [facility] 2021-05-14 00:00:00 2021-05-14 00:00:00 Outpatient Sergio [facility] [id number] [facility] 2021-05-11 00:00:00 2021-05-11 00:00:00 SUB ANNUAL [facility] WELLNESS VISIT STLMLC STLMLC [id number] [facility] 2021-05-11 00:00:00 2021-05-11 00:00:00 OFFICE VISIT EST PT LEVEL 3 STLMLC STLMLC [id number] [facility] 2021-05-10 00:00:00 2021-05-10 00:00:00 (TEL) STLMLC STLMLC [id number] [facility] 2021-05-07 14:30:00 2021-05-07 14:30:00 Outpatient Sergio JOSE [facility] [id number] [facility] 2021-05-01 11:30:00 2021-05-01 12:27:00 Outpatient Sergio [facility]SE [facility] [id number] [facility] 2021-04-24 10:30:00 2021-04-24 11:00:00 Office Visit Damon [facility] HIGINIOROSEANNA GARZA MEDICAL OFFICE BUILDING 1.2.840.114 350.1.13.10 4.2.7.2.686 [id number] [facility] 2021-04-24 10:30:00 2021-04-24 10:30:00 Outpatient Sergio [facility]SE [facility] [id number] [facility] 2021-04-09 00:00:00 2021-04-09 00:00:00 (TEL) STLMLC STLMLC [id number] [facility] 2021-04-02 00:00:00 2021-04-02 00:00:00 OFFICE VISIT EST PT LEVEL 3 STLMLC STLMLC [id number] [facility] 2021-03-15 00:00:00 2021-03-15 00:00:00 (TEL) STLMLC STLMLC [id number] [facility] 2021-03-15 00:00:00 2021-03-15 00:00:00 (TEL) STLMLC STLMLC [id number] [facility] 2021-02-14 00:00:00 2021-02-14 00:00:00 (TEL) STLMLC STLMLC [id number] [facility] 2021-02-06 00:00:00 2021-02-06 00:00:00 (TEL) STLMLC STLMLC [id number] [facility] 2021-01-10 00:00:00 2021-01-10 00:00:00 OL DIG E/M SVC 11-20 MIN STLMLC STLMLC [id number] [facility] 2021-01-01 00:00:00 2021-01-01 00:00:00 (INJ) Injection STLMLC STLMLC [id number] [facility] 2021-01-01 00:00:00 2021-01-01 00:00:00 (TEL) STLMLC STLMLC [id number] [facility] 2020-12-27 00:00:00 2020-12-27 00:00:00 (TEL) STLMLC STLMLC [id number] [facility] 2020-12-22 00:00:00 2020-12-22 00:00:00 OFFICE VISIT EST PT LEVEL 3 STLMLC STLMLC [id number] [facility] 2020-12-22 00:00:00 2020-12-22 00:00:00 (TEL) STLMLC STLMLC [id number] [facility] 2020-12-22 00:00:00 2020-12-22 00:00:00 (TEL) STLMLC STLMLC [id number] [facility] 2020-12-13 00:00:00 2020-12-13 00:00:00 OFFICE VISIT ESTAB PT LEVEL 3 STLMLC STLMLC [id number] [facility] 2020-12-01 00:00:00 2020-12-01 00:00:00 (TEL) STLMLC STLMLC [id number] [facility] 2020-10-24 00:00:00 2020-10-24 00:00:00 Outpatient STLMLC STLMLC [id number] [facility] 2020-08-02 00:00:00 2020-08-02 00:00:00 Outpatient STLMLC STLMLC [id number] [facility] 2020-07-05 00:00:00 2020-07-05 00:00:00 Outpatient STLMLC STLMLC [id number] [facility] 2020-06-20 00:00:00 2020-06-20 00:00:00 Outpatient STLMLC STLMLC [id number] [facility] 2020-06-20 00:00:00 2020-06-20 00:00:00 Outpatient STLMLC STLMLC [id number] [facility] 2020-06-15 00:00:00 2020-06-15 00:00:00 Outpatient STLMLC STLMLC [id number] [facility] 2020-06-06 00:00:00 2020-06-06 00:00:00 Outpatient STLMLC STLMLC [id number] [facility] 2020-06-05 00:00:00 2020-06-05 00:00:00 Outpatient STLMLC STLMLC [id number] [facility] 2020-05-29 00:00:00 2020-05-29 00:00:00 Outpatient STLMLC STLMLC [id number] [facility] 2020-05-09 00:00:00 2020-05-09 00:00:00 Outpatient [facility] STL[facility]C [id number] [facility] 2020-05-05 00:00:00 2020-05-05 00:00:00 Outpatient [facility] STLMLC [id number] [facility] 2020-04-19 00:00:00 2020-04-19 00:00:00 Outpatient [facility] STL[facility]C [id number] [facility] 2020-04-07 00:00:00 2020-04-07 00:00:00 Outpatient [facility]C STLMLC [id number] [facility] 2020-03-28 00:00:00 2020-03-28 00:00:00 Outpatient STLMLC STLMLC [id number] [facility] 2020-02-24 00:00:00 2020-02-24 00:00:00 Outpatient [facility] STLMLC [id number] [facility] 2020-02-22 00:00:00 2020-02-22 00:00:00 [address] [facility] [id number] [facility] 2020-01-14 00:00:00 2020-01-14 00:00:00 [address] [facility] [id number] [facility] 2019-11-23 11:00:00 2019-11-23 11:00:[address] [facility] [id number] [facility] 2019-11-16 09:52:00 2019-11-16 09:52:[address] [facility] [id number] [facility] 2019-08-30 08:49:00 2019-08-30 08:49:[address] [facility] [facility] [address] [facility] [id number] [facility] 2019-08-18 09:40:00 2019-08-18 09:40:[address] [facility] [id number] [facility] 2019-08-10 14:31:00 2019-08-10 14:31:[address] [facility] [id number] [facility] 2019-08-07 07:31:00 2019-08-07 07:31:[address] [facility] [id number] [facility] 2019-08-06 09:20:00 2019-08-06 09:20:00 [facility] [id number] [facility] 2019-04-30 16:02:00 2019-04-30 16:02:00 [facility] [id number] [facility] 2019-04-15 10:26:00 2019-04-15 10:26:00 [facility] [id number] [facility] 2019-04-12 09:27:00 2019-04-12 09:27:00 [facility] [id number] [facility] 2019-04-02 08:40:00 2019-04-02 08:40:00 [facility] [id number] [facility] 2019-04-01 11:20:00 2019-04-01 11:20:00 Outpatient [facility] [id number] [facility] Results Test Description Test Time Test Comments Results Result Co mments Source igp, apt HPV,rfx 16/18,333240-05-13 00:00:00* Test Item Value Reference Range Interpretation Comme nts diagnosis: (test code = diagnosis:) COMMENT specimen adequacy: (test cod e = specimen adequacy:) COMMENT performed by: (test code = p erformed by:) COMMENT note: (test code = note:) COMMENT test methodology: (test code = test methodology:) COMMENT HPV aptima (test code = HPV aptima) NEGATIVE negative [facility] [id number] 00:00:00* Test Item Value Reference Range Interpretation Comme nts A1C (test code = 4548-4) 8.1 REFLEXED [id number] 00:00:00* Test Item Value Reference Range Interpretation Comme nts NUCLEATED RBCS (test code = 15495-8) 0.0 /100 WBC'S See_Comment [Automated message] The system which generated this result transmitted reference range: 0.0 /100 WBC'S. The reference range was not used to interpret this result as normal/abnormal. ABSOLUTE EOSINOPHILS (test code = 32305-9) 0.06 K/UL See_Comment [Automated message] The system which generated this result transmitted reference range: 0.00-0.50 K/UL. The reference range was not used to interpret this result as normal/abnormal. ABSOLUTE LYMPHOCYTES (test code = 36287-9) 1.19 K/UL See_Comment [Automated message] The system which generated this result transmitted reference range: 1.00-4.00 K/UL. The reference range was not used to interpret this result as normal/abnormal. ABSOLUTE MONOCYTES (test code = 72728-9) 0.37 K/UL See_Comment [Automated message] The system which generated this result transmitted reference range: 0.20-1.00 K/UL. The reference range was not used to interpret this result as normal/abnormal. ABSOLUTE NEUTROPHILS (test code = 34458-6) 10.19 K/UL See_Comment H [Automated message] The system which generated this result transmitted reference range: 1.50-7.50 K/UL. The reference range was not used to interpret this result as normal/abnormal. BASOPHILS (test code = 41984-2) 0.4 % EOSINOPHILS (test code = 93233-6) 0.5 % HEMATOCRIT (test code = 24802-1) 42.0 % See_Comment [Automated messa ge] The [...] result as normal/abnormal. LYMPHOCYTES (test code = 00792-4) 10.0 % MCH (test code = 32425-8) 30.7 PG See_Comment [Automated messa ge] The system which generated this result transmitted reference range: 25.0-33.0 PG. The reference range was not used to interpret this result as normal/abnormal. MCHC (test code = 63749-1) 32.4 G/DL See_Comment [Automated messa ge] The system which generated this result transmitted reference range: 31.0-36.0 G/DL. The reference range was not used to interpret this result as normal/abnormal. MCV (test code = 86554-7) 94.8 fL See_Comment [Automated messa ge] The system which generated this result transmitted reference range: 80.0-99.0 fL. The reference range was not used to interpret this result as normal/abnormal. MONOCYTES (test code = 39496-0) 3.1 % NEUTROPHILS (test code = 15787-0) 85.7 % PLATELET COUNT (test code = 78795-0) 265 K/UL See_Comment [Automated messa ge] The system which generated this result transmitted reference range: 130-400 K/UL. The reference range was not used to interpret this result as normal/abnormal. RBC (test code = 76587-9) 4.43 M/UL See_Comment [Automated messa ge] The system which generated this result transmitted reference range: 3.80-5.40 M/UL. The reference range was not used to interpret this result as normal/abnormal. RDW (test code = 73946-3) 12.8 % See_Comment [Automated messa ge] The system which generated this result transmitted reference range: 11.5-15.0 %. The reference range was not used to interpret this result as normal/abnormal. WBC (test code = 47512-4) 11.9 K/UL See_Comment H [Automated messa ge] [...] normal/abnormal. CALC LDL CHOL (test code = 07919-9) (NOTE) MG/DL See_Comment [Automated messa ge] The [...] normal/abnormal. RISK RATIO LDL/HDL (test code = 98006-2) (NOTE) RATIO See_Comment [Automated message] The system [...] normal/abnormal. TSH, THIRD GENERATION (test code = 58265-2) 3.440 UIU/ML See_Comment [Automated message] The system which generated this result transmitted reference range: 0.400-4.100 UIU/ML. The reference range was not used to interpret this result as normal/abnormal. ALBUMIN, URINE, RANDOM (test code = 78787-1) 8.1 MG/DL NOT ESTAB MG/DL CALC ALBUMIN/CREAT, RND (test code = 53188-1) 321 MG/G See_Comment H [Automated messa ge] [...] result as normal/abnormal. CALCIUM (test code = 60743-7) 10.4 MG/DL See_Comment [Automated messa ge] The system which generated this result transmitted reference range: 8.5-10.5 MG/DL. The reference range was not used to interpret this result as normal/abnormal. CALC A/G RATIO (test code = 1759-0) 1.6 RATIO See_Comment [Automated messa ge] The system [...] as normal/abnormal. CALC GLOBULIN (test code = 30405-7) 2.6 G/DL See_Comment [Automated messa ge] The system which generated this result transmitted reference range: 1.9-3.7 G/DL. The reference range was not used to interpret this result as normal/abnormal. CARBON DIOXIDE (test code = 1963-8) 27 MEQ/L See_Comment [Automated messa ge] The system which generated this result transmitted reference range: 19-31 MEQ/L. The reference range was not used to interpret this result as normal/abnormal. CHLORIDE (test code = 2075-0) 93 MEQ/L See_Comment L [Automated messa ge] [...] normal/abnormal. eGFR (2020 CKD-EPI) (test code = 23489-4) 86 ML/MIN/1.73 See_Comment [Automated message] The system which generated this result transmitted reference range: >60 ML/MIN/1.73. The reference range was not used to interpret this result as normal/abnormal. GLUCOSE (test code = 1558-6) 623 MG/DL See_Comment HH [[employer]ated [employer]] The system which generated this result transmitted reference range: 70-99 MG/DL. The reference range was not used to interpret this result as normal/abnormal. POTASSIUM (test code = 2823-3) 4.1 MEQ/L See_Comment [Automated [employer] News[employer]] The system which generated this result transmitted reference range: 3.5-5.4 MEQ/L. The reference range was not used to interpret this result as normal/abnormal. PROTEIN, TOTAL (test code = 2885-2) 6.7 G/DL See_Comment [Automated [employer]] The system which generated this result transmitted reference range: 6.1-8.3 G/DL. The reference range was not used to interpret this result as normal/abnormal. AST (test code = 1920-8) 31 U/L See_Comment [[employer]ated [employer]] The system which generated this result transmitted reference range: 9-40 U/L. The reference range was not used to interpret this result as normal/abnormal. ALT (test code = 1742-6) 43 U/L See_Comment H [[employer]ated [employer]] The system which generated this result transmitted reference range: 5-40 U/L. The reference range was not used to interpret this result as normal/abnormal. SODIUM (test code = 2951-2) 135 MEQ/L See_Comment [Automated Health News[employer] ge] The system which generated this result transmitted reference range: 133-146 MEQ/L. The reference range was not used to interpret this result as normal/abnormal. infectious disease [id number] 00:00:00* Test Item Value Reference Range Interpretation [...] code = trichomonas vaginalis) 0.000 ppm 23.000-32.[address] [facility] Hemoglobin A1C [id number] 19:14:00* Test Item Value Reference Range Interpretation Comme nts POCT HBA1C (test code = 4548-4) 7.8 % 4-6 A Lab Interpretation (test cod e = 89794-0) Abnormal [facility] LAB RESULTS ([facility])2023-11-03 18:48:45 Ordered by an unspecified provider.[facility] [id number] 00:00:00* Test Item Value Reference Range Interpretation Comme nts NUCLEATED RBCS (test code = 74736-4) 0.0 /100 WBC'S See_Comment [Automated messa ge] The system which generated this result transmitted reference range: 0.0 /100 WBC'S. The reference range was not used to interpret this result as normal/abnormal. ABSOLUTE EOSINOPHILS (test code = 30017-9) 0.21 K/UL See_Comment [Automated messa ge] The system which generated this result transmitted reference range: 0.00-0.50 K/UL. The reference range was not used to interpret this result as normal/abnormal. ABSOLUTE LYMPHOCYTES (test code = 42871-9) 1.70 K/UL See_Comment [Automated messa ge] The system which generated this result transmitted reference range: 1.00-4.00 K/UL. The reference range was not used to interpret this result as normal/abnormal. ABSOLUTE MONOCYTES (test code = 99931-9) 0.45 K/UL See_Comment [Automated messa ge] The system which generated this result transmitted reference range: 0.20-1.00 K/UL. The reference range was not used to interpret this result as normal/abnormal. ABSOLUTE NEUTROPHILS (test code = 93897-9) 5.42 K/UL See_Comment [Automated messa ge] The system which generated this result transmitted reference range: 1.50-7.50 K/UL. The reference range was not used to interpret this result as normal/abnormal. BASOPHILS (test code = 46407-6) 0.6 % EOSINOPHILS (test code = 92222-4) 2.7 % HEMATOCRIT (test code = 47421-3) 39.2 % See_Comment [Automated messa ge] The [...] result as normal/abnormal. LYMPHOCYTES (test code = 75026-7) 21.7 % MCH (test code = 45082-5) 30.0 PG See_Comment [Automated messa ge] The system which generated this result transmitted reference range: 25.0-33.0 PG. The reference range was not used to interpret this result as normal/abnormal. MCHC (test code = 84377-4) 32.4 G/DL See_Comment [Automated messa ge] The system which generated this result transmitted reference range: 31.0-36.0 G/DL. The reference range was not used to interpret this result as normal/abnormal. MCV (test code = 87977-8) 92.7 fL See_Comment [Automated messa ge] The system which generated this result transmitted reference range: 80.0-99.0 fL. The reference range was not used to interpret this result as normal/abnormal. MONOCYTES (test code = 28598-1) 5.7 % NEUTROPHILS (test code = 66393-7) 69.0 % PLATELET COUNT (test code = 63243-2) 259 K/UL See_Comment [Automated messa ge] The system which generated this result transmitted reference range: 130-400 K/UL. The reference range was not used to interpret this result as normal/abnormal. RBC (test code = 68360-6) 4.23 M/UL See_Comment [Automated messa ge] The system which generated this result transmitted reference range: 3.80-5.40 M/UL. The reference range was not used to interpret this result as normal/abnormal. RDW (test code = 44465-2) 14.0 % See_Comment [Automated messa ge] The system which generated this result transmitted reference range: 11.5-15.0 %. The reference range was not used to interpret this result as normal/abnormal. WBC (test code = 29970-6) 7.9 K/UL See_Comment [Automated messa ge] The system which generated this result transmitted reference range: 3.5-11.0 K/UL. The reference range was not used to interpret this result as normal/abnormal. REFERRAL- REQUEST/[id number] 13:13:39Ordered by an unspecified provider. [facility] WO [id number] 18:42:07 ORDERING PHYSICIAN: TERESA JOSE CLINICAL HISTORY: Adrenal mass, > 2 to [...] in the pelvis. There is no compression fracture.[facility] [id number] 16:47:14* Test Item Value Reference Range Interpretation Comme [facility] POCT Creatinine (test code = 8666738459) 0.6 mg/dL 0.5-1.1 Lab Interpretation (test cod e = 10570-1) Normal [facility]/[id number] 15:44:52 Ordered by an unspecified provider.[facility] Hemoglobin A1C [id number] 20:35:00* Test Item Value Reference Range Interpretation Comme [facility] POCT HBA1C (test code = 4548-4) 7.9 % 4-6 A Lab Interpretation (test cod e = 85040-8) Abnormal [facility] A[facility] [id number] 20:35:00* Test Item Value Reference Range Interpretation Comme [facility] POCT HBA1C (test code = 4548-4) 7.9 % 4-6 A Lab Interpretation (test cod e = 76870-5) Abnormal [facility] [id number] 00:00:00* Test Item Value Reference Range Interpretation Comme [facility] A1C (test code = 4548-4) 9.1 CBC W/AUTO [id number] 00:00:00* Test Item Value Reference Range Interpretation Comme [facility] NUCLEATED RBCS (test code = 96720-1) 0.0 /100 WBC'S See_Comment [Automated messa ge] The system which generated this result transmitted reference range: 0.0 /100 WBC'S. The reference range was not used to interpret this result as normal/abnormal. ABSOLUTE EOSINOPHILS (test code = 47992-5) 0.11 K/UL See_Comment [Automated messa ge] The system which generated this result transmitted reference range: 0.00-0.50 K/UL. The reference range was not used to interpret this result as normal/abnormal. ABSOLUTE LYMPHOCYTES (test code = 19465-9) 1.65 K/UL See_Comment [Automated messa ge] The system which generated this result transmitted reference range: 1.00-4.00 K/UL. The reference range was not used to interpret this result as normal/abnormal. ABSOLUTE MONOCYTES (test code = 96534-2) 0.47 K/UL See_Comment [Automated messa ge] The system which generated this result transmitted reference range: 0.20-1.00 K/UL. The reference range was not used to interpret this result as normal/abnormal. ABSOLUTE NEUTROPHILS (test code = 85173-7) 4.11 K/UL See_Comment [Automated messa ge] The system which generated this result transmitted reference range: 1.50-7.50 K/UL. The reference range was not used to interpret this result as normal/abnormal. BASOPHILS (test code = 50413-4) 0.6 % EOSINOPHILS (test code = 67192-2) 1.7 % HEMATOCRIT (test code = 61633-9) 37.9 % See_Comment [Automated messa ge] The [...] result as normal/abnormal. LYMPHOCYTES (test code = 87477-9) 25.8 % MCH (test code = 32900-2) 31.1 PG See_Comment [Automated messa ge] The system which generated this result transmitted reference range: 25.0-33.0 PG. The reference range was not used to interpret this result as normal/abnormal. MCHC (test code = 61710-2) 34.8 G/DL See_Comment [Automated messa ge] The system which generated this result transmitted reference range: 31.0-36.0 G/DL. The reference range was not used to interpret this result as normal/abnormal. MCV (test code = 60288-2) 89.2 fL See_Comment [Automated messa ge] The system which generated this result transmitted reference range: 80.0-99.0 fL. The reference range was not used to interpret this result as normal/abnormal. MONOCYTES (test code = 83465-0) 7.3 % NEUTROPHILS (test code = 69594-3) 64.3 % PLATELET COUNT (test code = 16405-8) 230 K/UL See_Comment [Automated messa ge] The system which generated this result transmitted reference range: 130-400 K/UL. The reference range was not used to interpret this result as normal/abnormal. RBC (test code = 34376-0) 4.25 M/UL See_Comment [Automated messa ge] The system which generated this result transmitted reference range: 3.80-5.40 M/UL. The reference range was not used to interpret this result as normal/abnormal. RDW (test code = 29786-6) 13.4 % See_Comment [Automated messa ge] The system which generated this result transmitted reference range: 11.5-15.0 %. The reference range was not used to interpret this result as normal/abnormal. WBC (test code = 12542-4) 6.4 K/UL See_Comment [Automated [employer]] The system which generated this result transmitted reference range: 3.5-11.0 K/UL. The reference range was not used to interpret this result as normal/abnormal. Lipid Panel w/ Chol/HDL [id number] 00:00:00* Test Item Value Reference Range Interpretation Comme nts Cholesterol, Total (test code = 2093-3) 128 mg/dL See_Comment [Automated message] The system which generated this result transmitted reference range: 100-199 mg/dL. The reference range was not used to interpret this result as normal/abnormal. Triglycerides (test code = 2571-8) 159 mg/dL See_Comment H [Automated [employer]] The system which generated this result transmitted reference range: 0-149 mg/dL. The reference range was not used to interpret this result as normal/abnormal. HDL Cholesterol (test code = 2085-9) 42 mg/dL See_Comment [Automated [employer]] The system which generated this result transmitted reference range: >39 mg/dL. The reference range was not used to interpret this result as normal/abnormal. T. Chol/HDL Ratio (test code = 9830-1) 3.0 ratio See_Comment [Automated [employer]] The system which generated this result transmitted reference range: 0.0-4.4 ratio. The reference range was not used to interpret this result as normal/abnormal. Microalbumin/Creat Ratio, Random [id number] 00:00:00* Test Item Value Reference Range Interpretation Comme nts Creatinine, Urine (test code = 2161-8) 168.8 mg/dL Not Estab. mg/dL Albumin, Urine (test code = 74706-0) 516.8 ug/mL Not Estab. ug/mL Alb/Creat Ratio (test code = 68998-0) 306 mg/g creat See_Comment H [Automated [employer]] The system which generated this result transmitted reference range: 0-29 mg/g creat. The reference range was not used to interpret this result as normal/abnormal. - XR FLUORO FOR SPINE [id number] 14:34:00 [facility]E JOSÉ : 1965 Sex: F FAX: Luis Eisenberg MD [phone] [place]: St: REG Patient Name: BRANDEE JOSÉ Unit No: [id number] EXAMS: CPT CODE: [id number] XR FLUORO FOR SPINE INJ 58288 Location: T 18 INDICATION: ONELIA IMPRESSION: 12 seconds of intraoperative fluoroscopy provided for lumbar ONELIA. I was not present for or involved with the procedure or provided fluoroscopy. Please refer to the procedure note for details. Radiation dose 7 mGy (PSD). at 1434 Reported and signed by: Santino Golden M.D. CC: Luis Porter MD Dictated Date/Time: 04/11/2020 (7731)Technologist: Maurizio Perla Transcribed Date/Time: 04/11/2020 (1434) By: [email or web address] Orig Print D/T: S: 04/11/2020 (9536) [facility] [place] NAME: BRANDEE JOSÉ [facility] PHYS: Luis Mora MD [address] [place] [address] : 1965 AGE: 54 SEX: SARAH [place] [address] [facility] #: [phone] EXAM DATE: 04/11/2020 STATUS: [facility] [place] #: [phone] RAD NO: DC Dt: PAGE 1 Signed ReportGLUCOSE BEDSIDE [id number] 11:35:00* Test Item Value Reference Range Interpretation Comme nts GLUCOSE BEDSIDE TESTING (isrrael t code = GLUBED) 189 MG/DL 70-119 H COVID Asymptomatic IH [id number] 12:52:00* Test Item Value Reference Range Interpretation [...] results. This test was performed using the [employer] Mobile SmartTM COVID-19 PCRassay. This test was developed and its performancecharacteristics were determined by [facility]. This test has notbeen FDA cleared or [...] setting? No? NoAge at collection: YHCG SERUM [id number] 12:55:00* Test Item Value Reference Range Interpretation [...] NORMAL <50 MG Index/DL 1 NORMAL HGB [id number] 12:38:00* Test Item Value Reference Range Interpretation Comme nts RED BLOOD CELL (test code = RBC) 4.52 M/mm3 3.8-5.5 N HEMOGLOBIN (test code = HGB) 13.4 G/DL 10.6-15.8 N HEMATOCRIT (test code = HCT) 42.3 % 31.8-47.4 N MEAN CELL VOLUME (test code = MCV) 93.6 fL 80.1-101.1 N - XR CHEST 2 [id number] 12:21:00 [facility] MIMIROGatitome: BRANDEE JOSÉ : 1965 Sex: F FAX: Luis Eisenberg MD [phone] [place]: St: PRE Patient Name: BRANDEE JOSÉ Unit No: [id number] EXAMS: CPT CODE:[id number] XR CHEST 2 V 18836 Site ID: [id number] HISTORY: Preoperative FINDINGS: The lungs are clear and normally expanded. The heart and pulmonary vasculature is normal. Osseous structures are unremarkable. IMPRESSION: Normal preoperative chest x-ray at 1221 Reported and signed by: Santino Golden M.D. CC: Luis Porter MD Dictated Date/Time: 04/06/2020 (5658)Technologist: Smith Benton Transcribed Date/Time: 04/06/2020 (9099) By: [email or web address] Orig Print D/T: S: 04/06/2020 (1878) [facility] NAME: BRANDEE JOSÉ [address] [place] [address] PHYS: Luis Mora MD [place], [place] : 1965 AGE: 54 SEX: F [address] LOC: [facility] PHONE #: [phone] EXAM DATE: 04/06/2020 STATUS: [facility] FA[place] #: [phone] RAD NO: DC Dt: PAGE 1 Signed ReportGLUCOSE BEDSIDE [id number] 07:49:00* Test Item Value Reference Range Interpretation Comme nts GLUCOSE BEDSIDE TESTING (isrrael t code = GLUBED) 141 MG/DL 70-119 H Novel Coronavirus 2019 [id number] 18:08:00* Test Item Value Reference Range Interpretation [...] SARS-CoV-2 virusand/or diagnosis of COVID-19 infection under brnkigq482(b)(1) of the Act, 21 U.S.C. 360bbb-3(b) (1), [...] detected) result in this assay.Performed At: [facility] [address] [id number] Sam Gillis MD Ph:[phone] UR HCG [id number] 16:55:00* Test Item Value Reference Range Interpretation Comme nts UR HCG QUAL (test code = HCGQLU) NEGATIVE NEG Very dilute urin es with a low specific gravity may notcontain merchandising representative levels of hCG. - XR CHEST 2 [id number] 16:55:00 [facility] CON[facility]EName: BRANDEE JOSÉ : 1965 Sex: F FAX: Luis Eisenberg MD [phone] [place]: O St: PRE Patient Name: BRANDEE JOSÉ Unit No: [id number] EXAMS: CPT CODE: [id number] XR CHEST 2 V 58207 - XR CHEST 2 V LOCATION: T18 [...] 03/01/2020 (1657) [facility] NAME: BRANDEE JOSÉ [facility] PHYS: Luis Mora MD [address] [place] [address] : 1965 AGE: 54 SEX: Diana [place], [place] [address] [id number] LOC: [facility] PHONE #: [phone] EXAM DATE: 03/01/2020 STATUS: [facility] FA[place] #: [phone] RAD NO: DCDt: PAGE 1 Signed ReportCOMPREHENSIVE METABOLIC [id number] 16:39:00* Test Item Value Reference Range Interpretation [...] <50 MG Index/DL 1 NORMAL COMPREHENSIVE METABOLIC [id number] 16:34:00* Test Item Value Reference Range Interpretation [...] NORMAL <50 MG Index/DL 1 NORMAL HGB [id number] 16:22:00* Test Item Value Reference Range Interpretation Comme nts RED BLOOD CELL (test code = RBC) 4.61 M/mm3 3.8-5.5 N HEMOGLOBIN (test code = HGB) 13.6 G/DL 10.6-15.8 N HEMATOCRIT (test code = HCT) 42.7 % 31.8-47.4 N MEAN CELL VOLUME (test code = MCV) 92.6 fL 80.1-101.1 N Notes Date/Time Note Provider Source 2024-09-23 13:06:[address] June, fax MICAELA note. Faxed 09/03/23 OV note and EKG to [facility] [phone]. Pending confirmation. Kendra Appiah Snyder [facility] 2024-09-23 11:28:58 MICAELA: 09/03/23 NOV: no upcoming appt Fax received from [facility] requesting clearance for pt's upcoming procedure- Edouard Zack Osteotomy, Left Foot. Surgery is not scheduled yet, pending clearance. Placed in MD folder for review. Kendra Snyder [facility] 2024-08-23 08:00:14 Refill has been sent to pharmacy on file. Future Appointments Date Type Provider Dept 10/25/24 Appointment Emeli Dove MD [facility] Endocrinology Showing future appointments within next 150 days with a meds authorizing provider and meeting all other requirements Shira Alicea RN [facility] 2024-08-20 15:45:12 >> Aug 20, 2024 3:44 PM Patient [employer] wrote: Brandee Levin José (59 year old female) is calling to request refill(s) for METFORMIN ER 750 mg 24 hr tablet. Pt is out of medication Please send medication(s) to: [facility] - [place], [place] - [address] [facility] [address] [facility] [address] Thank you! [facility] 2024-08-09 16:21:08 Pt was rescheduled she with Ali, mentioned she wanted a provider who could stay in the loop and did not want to be OB or waitlisted so she choose first available. Please close TE. Shahana [facility] 2024-08-09 16:07:06 Pt is needing to schedule a rescheduled appointment due to provider not able to see her and said she would like to be seen for history of high glucose readings but no issues today per pt. Pt is willing to see any other pcp if available. I did attempt to schedule but no openings and also called clinic and [facility] staff had no overbooking access. Theresa Camilo [facility] 2024-06-03 11:17:58 Due for refill 06/17- refill sent in to be refilled 06/17 Shira Alicea RN [facility] 2024-05-12 16:16:01 Pt Toujeo insulin has been adjusted to 50u daily instead of 100U daily due to lows Pt mounjaro also adjusted from 10mg to 15mg weekly A1C is 6.3 05/12/2024 Routed to provider as GINO [place] 2024-05-12 15:52:56 Dr. Gonzalez's office is requesting to speak to a nurse regarding the pt's medications. Please advise Ofelia [phone] ER OPERATOR Vicki Nash [facility]2025-01-23 14:29:06 Refill has been sent to pharmacy on file. Future Appointments Date Type Provider Dept 07/13/24 Appointment Teresa Jose MD [facility] Showing future appointments within next 150 days with a meds authorizing provider and meeting all other requirements ER OPERATOR [facility] 08:15:22 Refill has been sent to pharmacy on file. Recent Visits Date Type Provider Dept 01/13/24 Office Visit Teresa Jose MD [facility] 07/08/23 Office Visit Teresa Jose MD [facility] 11/12/22 Office Visit Teresa Jose MD [facility] Showing recent visits within past 540 days with a meds authorizing provider and meeting all other requirements Future Appointments Date Type Provider Dept 07/13/24 Appointment Teresa Jose MD [facility] Showing future appointments within next 150 days with a meds authorizing provider and meeting all other requirements [facility] 14:00:00 Images from the original note were not included. Venipuncture collection performed by clean technique on the right anticubitus. Total of 1 attempts were made. Slight pressure and a bandage/dressing were applied to the site(s). The patient experienced no complications. The following specimens were processed according to instructions and sent to [facility] laboratories per lab order on today: LT BLUE SST 1 RED LAV PPT DK GREEN (LiHep) DK GREEN (SodH) ISABEL DK BLUE (K2) DK BLUE (S) ACD Blood Culture NIPT/NTD [place]2024-10-21 08:09:42 Refill has been sent to pharmacy on file. Future Appointments Date Type Provider Dept 01/13/24 Appointment Teresa Jose MD [facility] Showing future appointments within next 150 days with a meds authorizing provider and meeting all other requirements Shira Alicea [place] [address]-10-07 10:50:00 Refill has been sent to pharmacy on file. Date Type Provider Dept 01/13/24 Appointment Teresa Jose MD [facility] Showing future appointments within next 150 days with a meds authorizing provider and meeting all other requirements Shira Alicea [place] [address]-09-30 10:53:08 Refill has been sent to pharmacy on file. Future Appointments Date Type Provider Dept 01/13/24 Appointment Teresa Jose MD [facility] Showing future appointments within next 150 days with a meds authorizing provider and meeting all other requirements Shira Alicea [place] 457494-08-15 09:58:01 Attempted to call pt to update her. Left VM to check NuAxt message. Ngozi Reddy [place] 141304-08-13 22:35:07 Sent 30 days refill for levothyroxine 75mcg. Patient need to complete thyroid lab for further refills. Her last thyroid lab was in 2021 Teresa Jose MD Division [facility] Endocrinology and [facility] 15:50:49 Mychart message sent. Kendra Lo [facility]7351[facility]-93 13:17:55 Please review and sign if appropriate: Last office visit: 07/08/23 Next office visit: 01/13/24 Requested Prescriptions Pending Prescriptions Disp Refills levothyroxine 75 mcg tablet Sig: Take 1 tablet by mouth every morning. Signed Prescriptions Disp Refills Insulin [place], Disposable, (DROPLET PEN NEEDLE) 32 gauge x 5/32" Ndle 100 Each 3 Sig: inject 1 Each under the skin in the morning. Authorizing Provider: TERESA JOSE Ordering User: ANGELIC YOUNG LVN hypothyroidism Status: controlled Reviewed 10/15/21 TSH=3.1 01/22/22 TSH=3.8 Free T4=1.6 Plan Continue Levothyroxine 75mcg daily Notes: Pen needles sent to selected pharmacy T [place] [address]-08-12 18:04:46 Rx for needles was sent Please update with patient Her CT scan showed adrenal adenoma was stable All adrenal hormone tests was also normal Teresa Jose MD Division of Endocrinology and Metabolism [place] [address]-08-12 15:43:59 Please review and sign if appropriate: *New request Last office visit: 07/08/23 Next office visit: 01/13/24 Requested Prescriptions Pending Prescriptions Disp Refills Insulin [place], Disposable, (DROPLET PEN NEEDLE) 32 gauge x 5/32" Ndle [Pharmacy Med Name: DROPLET PEN NDL 32G 5/32 IN (4MM)] 0 Notes: Uncontrolled type 2 diabetes mellitus with hyperglycemia - Primary Angelic Young [facility]2024-08-12 14:58:33 Brandee José is a 58 year old female is calling stating she is needing refills for the needles for Trulicity and Levothyroxine 75mcg. Please advise agustina, pt has been out for a whole week. [facility] [address] [place] [id number] Caprice [facility] HospitalJtxtkm9203-45-20 10:53:07 Patient notified of results. They verbalized understanding of results/recommendations via teach back. No further questions or concerns at this time. T Kacy Fontenot [facility]Knilrj0060-53-37 12:00:00 Images from the original note were not included. Venipuncture collection performed by clean technique on the right anticubitus. Total of 3 attempts were made. Slight pressure and a bandage/dressing were applied to the site(s). The patient experienced no complications. The following specimens were processed according to instructions and sent to [facility] laboratories per lab order on 07/29/2023 : LT BLUE SST 4 RED LAV 3 PPT DK GREEN (LiHep) DK GREEN (SodH) ISABEL DK BLUE (K2) DK BLUE (S) ACD Blood Culture NIPT/NTD Patient has been identified by and name and was provided with cup, antiseptic towelette, and clean catch instructions. 1 urine specimen(s) sent. Unpreserved 1 Urine Culture Aptima tube Other urine T [facility]5894-69-73 12:11:49 resending T [facility]wbtvf2663-51-88 14:18:12 Brandee José is a 58 year old female Patient is requesting another prescription for dexAMETHasone 1 mg tablet be completed. She states she was unaware she needed to have labs drawn prior to 10am after taking medication. Please contact when available [facility] [address] [place] [id number] Maria Luisa BryantMel[place] 087974-05-09 12:45:00 Patient advised of test requirements for needing morning specimen- states she will come back for blood draw another day. Jael De SantiagoMel[place] 087974-02-07 08:56:46 MICAELA 11/12/2022 NOV 08/26/2023 toujeo 100u daily Kendra Donaldson MA 04/16/2023 9:02 AM [place]2024-01-31 16:49:07 Discussed concerns with patient regarding knee [...] checked out to rule out a DVT. [place]2024-01-31 16:40:03 Brandee José is a 57 year old female Pt calling in stating her left knee is swollen and she has pain. Pt states her right knee is starting to swell also. Pt is requesting a call back from nurse. Please advise ER OPERATOR Astrid [facility] HospitalWvewbc4483-82-99 08:32:14 Last Appt :11/12/2022 Next APPT :08/26/2023 Continue metformin 750 mg bid Kendra Donaldson MA 03/19/2023 8:34 AM [place]2021-02-02 13:28:543221-8581 [place] [address] PATIENT NAME: BRANDEE JOSÉ ADMIT DATE: 04/11/20 ACCOUNT NO: [id number] ROOM NO: AGE: 54 REPORT TYPE: REPORT OF OPERATION SEX: F ADMITTING PHYSICIAN: ATTENDING PHYSICIAN:Luis Porter MD OPERATION DATE: 04/11/2020 PREOPERATIVE DIAGNOSES: L5-S1 herniated nucleus pulposus and left leg lumbar radicular syndrome. POSTOPERATIVE DIAGNOSES: L5-S1 herniated nucleus pulposus and left leg lumbar radicular syndrome. PROCEDURE: L5-S1 interlaminar epidural steroid injection with C-arm fluoroscopic guidance. SURGEON: Luis Porter MD FURNACE ATTENDANT: Rachael Arcos, licensed rn first assistant. ANESTHESIA: General endotracheal anesthesia. ESTIMATED BLOOD [...] By: Luis Porter MD WT: OP:GIANLUCA/DOROTHEA/MAURO Conf#: [id number]/DID#: [id number] Authenticated by Luis Porter MD On 04/17/2020 04:29:47 PM at 1630 PATIENT NAME: BRANDEE JOSÉ 13:15:00 [facility]) Brief Op Note REPORT#:[id number] REPORT STATUS: Signed DATE:04/11/20 TIME: 1315 PATIENT: BRANDEE JOSÉ UNIT #: [id number] ROOM/BED: : 67 AGE: 54 SEX: F ATTEND: Luis Porter MD ADM AUTHOR: Luis Porter MD * ALL edits or amendments must be made on the electronic/computer document * Op/Inv Proc Note - Brief Pre-procedure diagnosis: L5-S1 HNP and lumbar radiculopathy Post-procedure diagnosis: same as pre procedure dx Procedures performed: L5-S1 interlaminar epidural steroid injection with fluoroscopic guidance Primary Surgeon: Luis Porter MD Diesel Engine Pipe Fitter(s): none Findings: As above Complications: none Estimated blood loss in ml's: none Specimens removed/altered: none at 1316 RPT #:[id number] END OF [id number] 12:12:[id number] [place] [address] PATIENT NAME: BRANDEE JOSÉ ADMIT DATE: ACCOUNT NO: [id number] ROOM NO: AGE: 54 REPORT TYPE: ELECTROCARDIOGRAM SEX: F ADMITTING PHYSICIAN: ATTENDING PHYSICIAN:Luis Porter MD Order: [id number] Test Reason : PREOP Test Date/Time Stamp: [...] at 1454 PATIENT NAME: BRANDEE JOSÉ 08:41:00 [id number] [place] [address] PATIENT NAME: BRANDEE JOSÉ ADMIT DATE: 03/07/20 ACCOUNT NO: [id number] ROOM NO: AGE: 54 REPORT TYPE: REPORT OF OPERATION SEX: F ADMITTING PHYSICIAN: ATTENDING PHYSICIAN:Luis Porter MD OPERATION DATE: PREOPERATIVE DIAGNOSES: Lumbar spinal stenosis and lumbar radicular syndrome. POSTOPERATIVE DIAGNOSES: Lumbar spinal stenosis and lumbar radicular syndrome. PROCEDURE: L5-S1 interlaminar epidural steroid injection with C-arm fluoroscopic guidance. SURGEON: Luis Porter MD FURNACE ATTENDANT: None. ANESTHESIA: Local with IV sedation. ESTIMATED [...] By: Luis Porter MD WT: OP:GIANLUCA/DOROTHEA/MAURO Conf#: [id number]/DID#: [id number] Authenticated by Luis Porter MD On 03/16/2020 03:01:09 PM at 1501 PATIENT NAME: BRANDEE JOSÉ 08:36:00 [facility] Brief Op Note REPORT#:[id number] REPORT STATUS: Signed DATE:03/07/20 TIME: 08 PATIENT: BRANDEE JOSÉ UNIT #: [id number] ROOM/BED: : 67 AGE: 54 SEX: F [...] fluoroscopic guidance Primary Surgeon: Luis Porter MD Diesel Engine Pipe Fitter(s): none Findings: as above Complications: none Estimated blood loss in ml's: none Specimens removed/altered: none at 0837 RPT #:[id number] END OF [id number] 16:01:[id number] [place] [address] PATIENT NAME: BRANDEE JOSÉ ADMIT DATE: ACCOUNT NO: [id number] ROOM NO: AGE: 54 REPORT TYPE: ELECTROCARDIOGRAM SEX: F ADMITTING PHYSICIAN: ATTENDING PHYSICIAN:Luis Porter MD Order: [id number] Test Reason : >50YO Test Date/Time Stamp: [...]
--- NOTE | 2024-10-23 21:20 | ER ---
Nurse's Notes [facility] Name: Brandee Rajan Age: 59 yrs Sex: Female : 1965 Arrival Date: 10/23/2024 Time: 20:49 Bed 15 Private MD: Diagnosis: Acute gingivitis;Dental pain Presentation: 10/23 20:58 Chief complaint: Patient states: SHE BEGAN HAVING UPPER RT GUM PAIN YESTERDAY, WENT TO dd2 THE DENTIST AND WAS TOLD TEETH WERE OK , MUST HAVE 'JABBED SOMETHING INTO HER GUM. PT REPORTS NO MEDS GIVEN TO HER AND PAIN HAS SPREAD TO BOTTOM JAW. Coronavirus screen: At this time, the client does not indicate any symptoms associated with coronavirus-19. Ebola Screen: No symptoms or risks identified at this time. Initial Sepsis Screen: Does the patient meet any 2 criteria? No. Patient's initial sepsis screen is negative. Does the patient have a suspected source of infection? No. Patient's initial sepsis screen is negative. Risk Assessment: Do you want to hurt yourself or someone else? Patient reports no desire to harm self or others. Onset of symptoms was October 22, 2024. 20:58 Method Of Arrival: Ambulatory dd2 20:58 Acuity: ONELIA 4 dd2 Triage Assessment: 21:05 General: Appears in no apparent distress. uncomfortable, Behavior is calm, cooperative, dd2 appropriate for age. Pain: Complains of pain in gums Pain currently is 10 out of 10 on a pain scale. EENT: Reports pain in gums. Historical: - Allergies: 21:05 No Known Allergies; dd2 - PMHx: 21:05 acid reflux; Anxiety; Arthritis; Chronic obstructive lung disease; diabetes mellitus; dd2 Hypercholesterolemia; Hypertensive disorder; thyroid; - PSHx: 21:05 breast reduction; Cholecystectomy; dd2 - Immunization history:: Adult Immunizations up to date. - Infectious Disease History:: Denies. - Social history:: Smoking status: Patient reports the use of cigarette tobacco products, denies chronic smoking, but will smoke occasionally. Screenin:46 [facility] ED Fall Risk Assessment (Adult) History of falling in the last 3 months, hm5 including since admission No falls in past 3 months (0 pts) Confusion or Disorientation No (0 pts) Intoxicated or Sedated No (0 pts) Impaired Gait No (0 pts) Mobility Assist Device Used No (0 pt) Altered Elimination No (0 pt) Score/Fall Risk Level 0 - 2 = Low Risk. Abuse screen: Denies threats or abuse. Denies injuries from another. Nutritional screening: No deficits noted. Tuberculosis screening: No symptoms or risk factors identified. Assessment: 21:47 General: Appears uncomfortable, well groomed, well developed, well nourished, Behavior 5 is calm, cooperative. Pain: Complains of pain in mouth and gums. Neuro: No deficits noted. Cardiovascular: No deficits noted. Respiratory: No deficits noted. GI: No deficits noted. No signs and/or symptoms were reported involving the gastrointestinal system. : No deficits noted. No signs and/or symptoms were reported regarding the genitourinary system. EENT: Reports pain in mouth and gums. Derm: No deficits noted. No signs and/or symptoms reported regarding the dermatologic system. Musculoskeletal: No deficits noted. No signs and/or symptoms reported regarding the musculoskeletal system. Vital Signs: 20:58 BP 204 / 83; Pulse 79; Resp 16; Temp 98.3; Pulse Ox 100% ; Weight 113.4 kg; Height 5 dd2 ft. 4 in. ; Pain 10/10; 21:49 BP 187 / 93; Pulse 86; Resp 19; Pulse Ox 97% on R/A; hm5 20:58 Body Mass Index 42.91 (113.40 kg, 162.56 cm) dd2 20:58 Pain Scale: Adult dd2 ED Course: 20:54 Patient arrived in ED. im 20:58 Mika Ornelas DO is Attending Physician. ms3 21:05 Triage completed. dd2 21:05 Arm band placed on right wrist. dd2 21:19 Brent Lara DDS is Referral Physician. ms3 21:22 Tamie Holt, ARTHUR is Primary Nurse. 5 21:46 Patient has correct armband on for positive identification. Bed in low position. Call [facility] light in reach. Side rails up X 1. Provided Education on: plan of care. 21:46 No provider procedures requiring assistance completed. 5 Administered Medications: 21:30 CANCELLED (Physician Discretion): penicillin vk500 mg PO once ms3 21:39 Drug: Clindamycin PO 300 mg PO once Route: PO; hm5 21:46 Follow up: Response: No adverse reaction [facility] 21:45 Drug: HYDROcodone-acetaminophen PO 5 mg-325 mg 1 tabs PO once Route: PO; [facility] Medication: 21:46 VIS not applicable for this client. [facility] Outcome: 21:20 Discharge ordered by . ms3 21:49 Discharged to home ambulatory, [facility] 21:49 Condition: stable 21:49 Discharge instructions given to patient, Instructed on discharge instructions, follow up and referral plans. no drinking with medication, no driving heavy equipment, medication usage, Demonstrated understanding of instructions, follow-up care, medications, Prescriptions given X 1, 21:50 Patient left the ED. [facility] Signatures: Mika Ornelas, DO ms3 Pao Christine DIANA RN RN dd2 Tamie Holt RN RN 5
--- NOTE | 2024-10-23 21:20 | EDPHYS ---
Physician Documentation [facility] Name: Brandee Rajan Age: 59 yrs Sex: Female : 1965 Arrival Date: 10/23/2024 Time: 20:49 Bed 15 Private MD: ED Physician Mika Ornelas HPI: 10/23 21:20 This 59 yrs old Female presents to ER via Ambulatory with complaints of Toothache. ms3 21:20 59-year-old female with past medical history of GERD, anxiety, arthritis, chronic ms3 obstructive lung disease, diabetes, hypercholesterolemia presents to the emergency department for right upper dental pain. Patient states she was seen by the dentist yesterday and was told a deep cleaning was can to be $400. Patient notes her gums have been inflamed and she did not receive antibiotics yesterday. Patient states her pain is 10/10 described as throbbing and has been constant for 3 days.. Historical: - Allergies: 21:05 No Known Allergies; dd2 - PMHx: 21:05 acid reflux; Anxiety; Arthritis; Chronic obstructive lung disease; diabetes mellitus; dd2 Hypercholesterolemia; Hypertensive disorder; thyroid; - PSHx: 21:05 breast reduction; Cholecystectomy; dd2 - Immunization history:: Adult Immunizations up to date. - Infectious Disease History:: Denies. - Social history:: Smoking status: Patient reports the use of cigarette tobacco products, denies chronic smoking, but will smoke occasionally. ROS: 21:20 Constitutional: Negative for fever, and chills. Cardiovascular: Negative for chest ms3 pain, and palpitations. Respiratory: Negative for shortness of breath, cough, wheezing, and pleuritic chest pain, Abdomen/GI: Negative for abdominal pain, nausea, vomiting, diarrhea, and constipation, 21:20 Skin: Negative for injury, rash, and discoloration, 21:20 ENT: Positive for dental pain, Exam: 21:20 Constitutional: This is a well developed, well nourished patient who is awake, alert, ms3 and in no acute distress. Cardiovascular: Regular rate and rhythm with a normal S1 and S2. No gallops, murmurs, or rubs. Normal PMI, no JVD. No pulse deficits. Respiratory: Lungs have equal breath sounds bilaterally, clear to auscultation and percussion. No rales, rhonchi or wheezes noted. No increased work of breathing, no retractions or nasal flaring. Abdomen/GI: Soft, non-tender, with normal bowel sounds. No distension or tympany. No guarding or rebound. No evidence of tenderness throughout. 21:20 ENT: Dental exam: gum swelling, that is mild, specifically in the upper right first molar (#3), upper right second bicuspid (#4), upper right first bicuspid (#5) and upper right cuspid (#6), pain, that is moderate, specifically in the upper right first molar (#3), upper right second bicuspid (#4), upper right first bicuspid (#5) and upper right cuspid (#6), Vital Signs: 20:58 BP 204 / 83; Pulse 79; Resp 16; Temp 98.3; Pulse Ox 100% ; Weight 113.4 kg; Height 5 dd2 ft. 4 in. ; Pain 10/10; 21:49 BP 187 / 93; Pulse 86; Resp 19; Pulse Ox 97% on R/A; hm5 20:58 Body Mass Index 42.91 (113.40 kg, 162.56 cm) dd2 20:58 Pain Scale: Adult dd2 MDM: 21:17 Medical Screening Exam initiated ms3 21:20 Differential diagnosis: dental caries, gingivitis. Data reviewed: vital signs, nurses ms3 notes, and as a result, I will discharge patient. I considered the following discharge prescriptions or medication management in the emergency department Medications were administered in the Emergency Department. See MAR. Counseling: I had a detailed discussion with the patient and/or guardian regarding the historical points, exam findings, and any diagnostic results supporting the discharge/admit diagnosis, the need for outpatient follow up, to return to the emergency department if symptoms worsen or persist or if there are any questions or concerns that arise at home. Special discussion: I discussed with the patient/guardian in detail that at this point there is no indication for admission to the hospital. It is understood, however, that if the symptoms persist or worsen the patient needs to return immediately for re-evaluation. ED course: Patient given oral antibiotic in the emergency department. Patient to follow-up with dentistry in 2 to 3 days. All questions were answered. Return precautions discussed include worsening symptoms, or any other concerns.. 21:20 Counseling: I had a detailed discussion with the patient and/or guardian regarding the ms3 presence of at least one elevated blood pressure reading (>120/80) during this emergency department visit. Special discussion: I have referred the patient to see his PCP for further evaluation of high blood pressure. Administered Medications: 21:30 CANCELLED (Physician Discretion): penicillin vk500 mg PO once ms3 21:39 Drug: Clindamycin PO 300 mg PO once Route: PO; 5 21:46 Follow up: Response: No adverse reaction 5 21:45 Drug: HYDROcodone-acetaminophen PO 5 mg-325 mg 1 tabs PO once Route: PO; 5 Disposition Summary: 10/23/24 21:20 Discharge Ordered Notes: Location: Home ms3 Condition: Stable ms3 Diagnosis - Acute gingivitis ms3 - Dental pain ms3 Followup: ms3 - With: Brent Lara DDS - When: 2 - 3 days - Reason: Recheck today's complaints Discharge Instructions: - Discharge Summary Sheet ms3 - Gingivitis, [id number] ms3 Forms: - Medication Reconciliation Form ms3 - Antibiotic Education ms3 - Prescription Opioid Use ms3 - Patient Portal Instructions ms3 - Leadership Thank You Letter ms3 Prescriptions: - Clindamycin HCl 300 mg Oral Capsule - take 1 capsule ORAL route every 6 hours for 10 days; 40 capsule; Refills: 0, ms3 Product Selection Permitted Signatures: Mika Ornelas DO DO ms3 ROLDAN CH RN RN dd2 Tamie Holt RN RN hm5 Corrections: (The following items were deleted from the chart) 21:30 21:18 penicillin VK PO 500 mg PO once ordered. ms3 ms3
[2024-10-23] MEDS ORDERED: HYDROCODONE/APAP 5/325 MG TAB ONE (21:25)
[2024-10-24 04:49] VITALS: TEMP 98.3
[2024-10-24 04:53] VITALS: BP 187/93; O2SAT 97
== END 2024-10-23 21:50 | disposition home or self-care (01) ==
LOC: ER 20:49
DX: K05.00 Acute gingivitis, plaque induced (principal); F17.210 Nicotine dependence, cigarettes, uncomplicated
CPT/HCPCS: 99283

== ENCOUNTER 2024-10-24 15:32 | Inpatient (IN) | payer OTHER ==
--- OUTSIDE RECORDS SUMMARY | 2024-10-24 15:41 | XMS REPORT | Continuity of Care Document ---
Author Name Unknown Address [address] 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 Name Role Phone Rocio BECKFORD, Roberto Carlos Meehan Primary Care Physician Chayo Gonzalez Attending Clinician Unavailable Jessa Ruelas Attending Clinician Unavailable Luis Porter Attending Clinician UnavailEMELI Boone Attending Clinician Unavailable Slade BECKFORD, Tiesha Attending Clinician TERESA JOSE Attending Clinician Unavailable Teresa Jose MD Attending Clinician Chauncey Ohara MD Attending Clinician [phone] Doctor Unassigned, Rosamond Attending Clinician [facility], Ang - Db Attending Clinician Unavailable Tiesha June MD Attending Clinician TIESHA JUNE Attending Clinician Unavailable Doctor Unassigned, Rosamond Attending Clinician [facility], Ang - Db Attending Clinician Unavailable Damon BECKFORD, Teresa Attending Clinician SAFIA HOGAN Attending Clinician Unavailable [email or web address] Attending Clinician Unavaila Yesika Russell Admitting Clinician Unavailable Physician, No Primary or Family Admitting Clinic adina Unavailable TERESA JOSE Admitting Clinician Unavailable [email or web address] Admitting Clinician Unavailbijal fish Payers Payer Name Policy Type Policy Number Effective Date Expirati on Date Source [facility] [id number] 2019 00:00:00 [employer] MEDICARE 53 [id number] 2019 00:00:00 [facility] [employer] MEDICARE 53 [id number] 2021 00:00:00 [facility] [employer] (MEDICARE REPLACEMENT/ADV ANTAGE - HMO) [id number] [place] [id number] [employer] MEDICARE C1 [id number] 2019 00:00:00 [facility] [employer]NA MEDICARE C1 [id number] 2019 00:00:00 [facility] [employer]NA MEDICARE C1 [id number] 2019 00:00:00 [facility] [employer] MEDICARE C1 [id number] 2019 00:00:00 [facility] [employer] MEDICARE C1 [id number] 2019 00:00:00 [facility] [employer] MEDICARE C1 [id number] 2019 00:00:00 [facility] [employer] MEDICARE C1 [id number] 2019 00:00:00 [facility] [employer] MEDICARE C1 [id number] 2019 00:00:00 [facility] Problems Condition Name Condition Details Condition Category [...] of Vagina Problem Active 2023-03- 00:00: 00 [facility] Nicotine dependence Nicotine Dependence Problem Active 2023-03 00:00: 00 [facility] Abscess of skin and/or subcutaneo us tissue Abscess of Skin And/or Subcutaneo us Tissue Problem Active 2023-03 00:00: 00 [facility] Morbid obesity Morbid obesity Disease Active 09-02 00:00: 00 [facility] Primary hypertensi on Primary hypertensi on Disease Active 09-02 00:00: 00 [facility] FRANCESCA on CPAP FRANCESCA on CPAP Disease Active 09-02 00:00: 00 [facility] Fatigue, unspecifie d type Fatigue, unspecifie d type Disease Active 09-02 00:00: 00 [facility] Cigarette smoker Cigarette smoker Disease Active 09-02 00:00: 00 [facility] Hyperlipid emia, unspecifie d hyperlipid emia type Hyperlipid emia, unspecifie d hyperlipid emia type Disease Active 09-02 00:00: 00 [facility] Hypothyroi dism Hypothyroi dism Problem Active 9-05 00:00: 00 [facility] Type 2 diabetes mellitus Type 2 Diabetes Mellitus Problem Active 11-12 00:00: 00 [facility] Depressive disorder Depressive Disorder Problem Active 11-12 00:00: 00 [facility] Chronic obstructiv e pulmonary disease Chronic Obstructiv e Pulmonary Disease Problem Active 11-12 00:00: 00 [facility] Gastroesop hageal reflux disease Gastroesop hageal Reflux Disease Problem Active 11-12 00:00: 00 [facility] Adrenal mass 1 cm to 4 cm in diameter Adrenal mass 1 cm to 4 cm in diameter Disease Active 05-27 00:00: 00 [facility] [id number] Type 2 diabetes mellitus with hyperglyce juan c Problem [facility] [id number] Mixed hyperlipid emia Problem [facility] [id number] Other chronic pain Problem [facility] [id number] Depression with anxiety Problem [facility] Gallstones [facility] [id number] Type 2 diabetes mellitus without complicati ons Problem [facility] 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 Problem [facility] [id number] Cigarette nicotine dependence with nicotine-i nduced disorder Problem [facility] Anxiety Anxiety Problem [facility] Allergic rhinitis Allergic rhinitis Problem [facility] Diabetes mellitus without complicati on Diabetes DMII without complicati ons Problem [facility] [id number] 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 with pain Problem [facility] [id number] Acute bronchitis , unspecifie d organism Problem [facility] [id number] Lumbar degenerati ve disc disease Problem [facility] [id number] Lesion of plantar nerve, left lower limb Problem [facility] [id number] Pain in left foot Problem [facility] [id number] Posterior tibial tendinitis , left leg Problem [facility] Seizure Seizures Problem [facility] 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 (disorder) Type 2 diabetes mellitus with both eyes affected by mild nonprolife rative retinopath y without macular edema, without long-term current use of insulin Problem [facility] Memory problem Memory problem Problem [facility] Acquired hypothyroi dism Acquired hypothyroi dism Problem [facility] [id number] Suspected ingested foreign body not found after observatio n Problem [facility] [id number] Type 2 diabetes mellitus with other diabetic kidney complicati on Problem [facility] [id number] Pain, joint, knee, left Problem [facility] [id number] Pain, joint, knee, right Problem [facility] Nasal sinus problem (finding) Sinus problem Problem [facility] [id number] Diabetic peripheral neuropathy Problem [facility] [id number] Sciatica of right side Problem [facility] [id number] Leukocytos is, unspecifie d type Problem [facility] [id number] Primary osteoarthr itis of right knee Problem [facility] Allergies, Adverse Reactions, Alerts Allergy Name Allergy Type Status Severity Reaction(s) Onset Date Inactive Date Treating Clinician Comments Source cedarwo[place] d DA Active [place] 04-06 00:00: 00 [facility] ragweed pollen DA Active [place] 04-06 00:00: 00 [facility] cedarwoo d DA Active ME SINUS PROBLEMS 04-06 00:00: 00 [facility] ragweed pollen DA Active ME SINUS PROBLEMS 04-06 00:00: 00 [facility] No Known Allergie s DA Active U 2019-03 00:00: 00 [facility] No Known Allergie s DA Active U 2019-03 00:00: 00 [facility] NO KNOWN ALLERGIE S Drug Class Active [facility] Social History Social Habit Start Date Stop Date Quantity Comments Source Sex Assigned At [facility] of tobacco use Passive smoker [facility] ASSERTION Possible [facility] History of Social function 2023-09-03 00:00:00 2023-09-03 00:00:00 [facility] Tobacco use and exposure 2023-09-03 00:00:00 2023-09-03 00:00:00 Smokeless tobacco non-user [facility] Exposure to SARS-CoV-2 (event) 2022-05-06 00:00:00 2022-05-16 15:29:[address] [facility] Smoking Status Start Date Stop Date Source Unknown if ever smoked [facility] Smokes tobacco daily 2023-09-03 00:00:00 [facility] Medications Ordered Medication Name Filled Medication Name Start Date Stop Date Current Medication? Ordering Clinician Indication Dosage Frequency Signature (SIG) Comments Components Source metformin ER 750 mg 24 hr tablet 6-16 00:00: 00 Yes [id number] TAKE 1 TABLET EVERY MORNING AND TAKE 1 TABLET EVERY EVENING WITH MEALS [facility] gabapentin 300 mg capsule -27 00:00: 00 Yes [id number] 9106 TAKE 1 CAPSULE EVERY MORNING AND EVENING [facility] ursodiol 250 mg tablet 2-12 00:00: 00 Yes 1mg Bo Nunn TOUJEO MAX U-300 SOLOSTAR 300 unit/mL (3 mL) InPn -23 00:00: 00 Yes [id number] 100U INJECT 100 UNITS UNDER THE SKIN IN THE MORNING [facility] DROPLET PEN NEEDLE 32 gauge x 5/32" Ndle - 00:00: 00 Yes [id number] USE DIRECTED ONE TIME DAILY IN THE MORNING [facility] DROPLET PEN NEEDLE 32 gauge x 5/32" Ndle 04-01 00:00: 00 Yes [id number] USE DIRECTED ONE TIME DAILY IN THE MORNING [facility] Toujeo Max U-300 SoloStar 300 unit/mL (3 mL) subcutaneou s insulin pen 04-01 00:00: 00 Yes (3 mL) Bo Nunn GABAPENTIN 300 mg capsule - 00:00: 00 06-03 00:00 :00 No [id number] 9106 TAKE 1 CAPSULE EVERY MORNING AND EVENING [facility] metformin ER 750 mg tablet,exte nded [...] 2023-03- 00:00: 00 03-19 00:00 :00 No [id number] 9106 TAKE 1 CAPSULE EVERY MORNING AND EVENING [facility] ACCU-CHEK GUIDE TEST STRIPS strip 2023-03 0-07 00:00: 00 Yes [id number] TEST BLOOD SUGAR TWICE DAILY [facility] ACCU-CHEK GUIDE TEST STRIPS strip 2023-03 0-07 00:00: 00 Yes [id number] TEST BLOOD SUGAR TWICE DAILY [facility] gabapentin 300 mg capsule 12-07 00:00: 00 12-28 00:00 :00 No [id number] 9106 TAKE 1 CAPSULE EVERY MORNING AND EVENING [facility] Insulin [place], Disposable, (DROPLET PEN NEEDLE) 32 gauge x 5/32" Ndle 8-13 00:00: 00 04-01 00:00 :00 No [id number] 1{each} inject 1 Each under the skin in the morning. [facility] Insulin [place], Disposable, (DROPLET PEN NEEDLE) 32 gauge x 5/32" Ndle 8-12 00:00: 00 10-20 00:00 :00 No [id number] 1{each} inject 1 Each under the skin in the morning. [facility] cetirizine 10 mg tablet 09-02 14:19: 02 Yes 10mg Take 1 tablet by mouth in the morning. [facility] benzonatate 100 mg capsule 09-02 14:19: 02 Yes [id number] Take 100 capsules by mouth in the morning. [facility] meloxicam 15 mg tablet 08-06 00:00: 00 Yes mg Bo Diana Edouard dexAMETHaso ne 1 mg tablet 07-23 00:00: 00 Yes [id number] 1mg Take 1 tablet by mouth SEE-INSTRU CTIONS. Take at 23:00 for dexamethas one suppressio n test, night before blood draw [facility] iopamidol (ISOVUE 370-500 mL) injection 100 mL 04 17:15: 00 07-11 17:17 :00 No [id number] 100mL 100 mL, Intravenou s, ONCE, 1 dose, On 07/12/23 at 1230, Routine [facility] dexAMETHaso ne 1 mg tablet 30 00:00: 00 07-23 00:00 :00 No [id number] 1mg Take 1 tablet by mouth SEE-INSTRU CTIONS. Take at 23:00 for dexamethas one suppressio n test, night before blood draw [facility] TOUJEO MAX U-300 SOLOSTAR 300 unit/mL (3 mL) InPn 2-07 00:00: 00 04-01 00:00 :00 No [id number] 100U INJECT 100 UNITS UNDER THE SKIN IN THE MORNING [facility] METFORMIN ER 750 mg 24 hr tablet 1-10 00:00: 00 08-20 00:00 :00 No [id number] TAKE 1 TABLET EVERY MORNING AND TAKE 1 TABLET EVERY EVENING WITH MEALS [facility] Levothyroxi ne Sodium 75 MCG Levothyroxi ne Sodium 75 MCG 2022-03 2- 00:00: 00 No QD Levothyrox ine Sodium 75 MCG ACCU-CHEK GUIDE TEST STRIPS strip 2022-03 00:00: 00 12-14 00:00 :00 No [id number] TEST BLOOD SUGAR TWICE DAILY [facility] ACCU-CHEK GUIDE TEST STRIPS strip 2022-03 00:00: 00 12-14 00:00 :00 No [id number] TEST BLOOD SUGAR TWICE DAILY [facility] insulin glargine U-300 conc (TOUJEO MAX U-300 SOLOSTAR) 300 unit/mL (3 mL) In 2022-03 1-24 00:00: 00 04-16 00:00 :00 No [id number] 100U INJECT 100 UNITS UNDER THE SKIN IN THE MORNING [facility] gabapentin 300 mg capsule -05 00:00: 00 12-07 00:00 :00 No [id number] 9106 300mg Take 1 capsule by mouth in the morning and 1 capsule in the evening. [facility] dulaglutide (TRULICITY) 3 mg/0.5 mL PnIj 9-05 00:00: 00 07-07 00:00 :00 No [id number] 3mg inject 1 Pen under the skin weekly. [facility] insulin glargine U-300 conc (TOUJEO MAX U-300 SOLOSTAR) 300 unit/mL (3 mL) In 5- 00:00: 00 01-31 00:00 :00 No [id number] 100U inject 100 Units under the skin in the morning. [facility] metformin ER 750 mg 24 hr tablet 3-07 00:00: 00 03-19 00:00 :00 No [id number] TAKE 1 TABLET EVERY MORNING AND TAKE 1 TABLET EVERY EVENING WITH MEALS [facility] ACCU-CHEK GUIDE TEST STRIPS strip 05-14 00:00: 00 02-19 00:00 :00 No [id number] TEST 2 TIMES DAILY E11.65 [facility] dulaglutide (TRULICITY) 1.5 mg/0.5 mL PnIj 05-14 00:00: 00 11-12 00:00 :00 No [id number] 1.5mg inject 1 Pen under the skin weekly. [facility] insulin glargine U-300 conc (TOUJEO MAX U-300 SOLOSTAR) 300 unit/mL (3 mL) In 05-14 00:00: 00 07-29 00:00 :00 No [id number] 100U inject 100 Units under the skin in the morning. [facility] insulin glargine U-300 conc (TOUJEO MAX U-300 SOLOSTAR) 300 unit/mL (3 mL) In 03-23 00:00: 00 05-14 00:00 :00 No [id number] 90U inject 90 Units under the skin in the morning. [facility] metformin ER 750 mg 24 hr tablet 03-23 00:00: 00 05-14 00:00 :00 No [id number] TAKE 1 TABLET EVERY MORNING AND TAKE 1 TABLET EVERY EVENING WITH MEALS [facility] dulaglutide (TRULICITY) 0.75 mg/0.5 mL [facility] 03-17 00:00: 00 05-14 00:00 :00 No [id number] INJECT 0.75MG (1 PEN) SUBCUTANEO USLY EVERY WEEK [facility] amLODIPine Besylate 5 MG amLODIPine Besylate 5 MG 11-15 00:00: 00 No 1{table t} QD amLODIPine Besylate 5 MG mirabegron (MYRBETRIQ) 50 mg tablet 10-30 19:09: 35 10-30 00:00 :00 No 50mg Take 50 mg by mouth daily. [facility] Insulin Glargine (LANTUS SOLOSTAR U-100 INSULIN) 100 unit/mL (3 mL) injection 10-30 12:32: 16 10-30 00:00 :00 No 68U inject 68 Units under the skin daily. Per sliding scale [facility] empaglifloz in (JARDIANCE) 25 mg Tab 10-30 00:00: 00 05-14 00:00 :00 No [id number] 25mg Take 1 tablet by mouth every morning. [facility] insulin glargine U-300 conc (TOUJEO MAX U-300 SOLOSTAR) 300 unit/mL (3 mL) InPn 10-30 00:00: 00 03-23 00:00 :00 No [id number] 80U inject 80 Units under the skin daily. E11.65 [facility] metformin ER 750 mg 24 hr tablet 10-30 00:00: 00 03-23 00:00 :00 No [id number] 750mg Take 1 tablet by mouth in the morning and 1 tablet in the evening. Take with meals. [facility] dulaglutide (TRULICITY) 0.75 mg/0.5 mL PnIj 10-30 00:00: 00 03-17 00:00 :00 No [id number] .75mg inject 1 Pen under the skin weekly. [facility] ACCU-CHEK GUIDE TEST STRIPS strip 10-20 00:00: 00 05-14 00:00 :00 No TEST 2 TIMES DAILY [facility] gabapentin 300 mg capsule 10-19 00:00: 00 11-12 00:00 :00 No [facility] JANUMET 50-1,000 mg per tablet 09-29 00:00: 00 10-30 00:00 :00 No [facility] losartan 50 mg tablet 09-14 00:00: 00 Yes [facility] benzonatate 100 mg capsule - 11:57: 13 Yes 100{cap elizabeth} Take 100 capsules by mouth daily. [facility] cetirizine 10 mg tablet 05-01 11:57: 13 Yes 10mg Take 10 mg by mouth daily. [facility] Trintellix 20 MG Trintellix 20 MG [...] No Accu-Chek Guide Glucose Meter USE DIRECTED [facility] Accu-Chek Guide L1-L2 Control Solution Accu-Chek Guide L1-L2 Control Solution No Accu-Chek Guide L1-L2 Control Solution [facility] Accu-Chek Guide test strips TEST 2 TIMES DAILY Accu-Chek Guide test strips TEST 2 TIMES DAILY No Accu-Chek Guide test strips TEST 2 TIMES DAILY [facility] Accu-Chek Softclix Lancets Accu-Chek Softclix Lancets No Accu-Chek Softclix Lancets [facility] albuterol sulfate 2.5 mg/3 mL (0.083 %) solution for nebulizatio n prn albuterol sulfate 2.5 mg/3 mL (0.083 %) solution for nebulizatio n prn No albuterol sulfate 2.5 mg/3 mL (0.083 %) solution for nebulizati on prn [facility] Alive Hair, Skin and Nails Alive Hair, Skin and Nails No Alive Hair, Skin and Nails [facility] amlodipine 5 mg tablet amlodipine 5 mg tablet No amlodipine 5 mg tablet [facility] BD Janet 2nd Gen [...] THE SKIN ONCE DAILY IN THE MORNING [facility] buspirone 15 mg tablet TAKE 1 TABLET BY MOUTH TWICE DAILY buspirone 15 mg tablet TAKE 1 TABLET BY MOUTH TWICE DAILY No buspirone 15 mg tablet TAKE 1 TABLET BY MOUTH TWICE DAILY [facility] iron iron No iron [facility] levothyroxi ne 75 mcg tablet TAKE 1 TABLET BY MOUTH IN THE MORNING ON AN EMPTY STOMACH FOR 90 DAYS levothyroxi ne 75 mcg tablet TAKE 1 TABLET BY MOUTH IN THE MORNING ON AN EMPTY STOMACH FOR 90 DAYS No levothyrox ine 75 mcg tablet TAKE 1 TABLET BY MOUTH IN THE MORNING ON AN EMPTY STOMACH FOR 90 DAYS [facility] losartan 100 mg tablet TAKE 1 TABLET BY MOUTH ONCE DAILY losartan 100 mg tablet TAKE 1 TABLET BY MOUTH ONCE DAILY No losartan 100 mg tablet TAKE 1 TABLET BY MOUTH ONCE DAILY [facility] Mounjaro 10 mg/0.5 mL subcutaneou s pen injector Mounjaro 10 mg/0.5 mL subcutaneou s pen injector No Mounjaro 10 mg/0.5 mL subcutaneo us pen injector [facility] Multivitami n 50 Plus Multivitami n 50 Plus No Multivitam in 50 Plus [facility] nystatin 100,000 unit/gram topical ointment APPLY TO THE AFFECTED AREA(S) BY TOPICAL ROUTE 2 TIMES PER DAY nystatin 100,000 unit/gram topical ointment APPLY TO THE AFFECTED AREA(S) BY TOPICAL ROUTE 2 TIMES PER DAY No nystatin 100,000 unit/gram topical ointment APPLY TO THE AFFECTED AREA(S) BY TOPICAL ROUTE 2 TIMES PER DAY [facility] pantoprazol e 40 mg tablet,mayra yed release TAKE 1 TABLET BY MOUTH ONCE DAILY pantoprazol e 40 mg tablet,mayra yed release TAKE 1 TABLET BY MOUTH ONCE DAILY No pantoprazo le 40 mg tablet,del ayed release TAKE 1 TABLET BY MOUTH ONCE DAILY [facility] pravastatin 20 mg tablet pravastatin 20 mg tablet No pravastati n 20 mg tablet [facility] Trintellix 20 mg tablet TAKE 1 TABLET BY MOUTH ONCE DAILY Trintellix 20 mg tablet TAKE 1 TABLET BY MOUTH ONCE DAILY No Trintellix 20 mg tablet TAKE 1 TABLET BY MOUTH ONCE DAILY [facility] Ultra Thin Lancets 31 gauge TEST 2 TIMES DAILY Ultra Thin Lancets 31 gauge TEST 2 TIMES DAILY No Ultra Thin Lancets 31 gauge TEST 2 TIMES DAILY [facility] ursodiol 250 mg tablet ursodiol 250 mg tablet No ursodiol 250 mg tablet [facility] varenicline tartrate 1 mg tablet varenicline tartrate 1 mg tablet No vareniclin e tartrate 1 mg tablet [facility] nystatin-tr iamcinolone 100,000 unit/g-0.1 % [...] PER DAY, IN THE MORNING AND EVENING [facility] Immunizations Ordered Immunization Name Filled Immunization Name Date Status Comments Source Flucelvax - single dose syringe Flucelvax - single dose syringe 2022-02-14 16:15:00 Completed [facility] Flucelvax - single dose syringe Flucelvax - single dose syringe 2022-02-14 16:15:00 Completed [facility] Flucelvax - single dose syringe Flucelvax - single dose syringe 2022-02-14 16:15:00 Completed [facility] Flucelvax - single dose syringe Flucelvax - single dose syringe 2022-02-14 16:15:00 Completed [facility] Flucelvax - single dose syringe Flucelvax - single dose syringe 2022-02-14 16:15:00 Completed [facility] Fluarix (IIV3) - SDS - 0.5mL Fluarix (IIV3) - SDS - 0.5mL 2021-01-01 14:46:00 Completed [facility] Afluria Afluria 2021-01-01 14:46:00 Completed [facility] Afluria Afluria 2021-01-01 14:46:00 Completed [facility] Afluria Afluria 2021-01-01 14:46:00 Completed [facility] Afluria Afluria 2021-01-01 14:46:00 Completed [facility] Afluria Afluria 2021-01-01 14:46:00 Completed [facility] Afluria Afluria 2021-01-01 14:46:00 Completed [facility] Afluria Afluria 2021-01-01 14:46:00 Completed [facility] Afluria Afluria 2021-01-01 14:46:00 Completed [facility] Afluria Afluria 2021-01-01 14:46:00 Completed [facility] Afluria Afluria 2021-01-01 14:46:00 Completed [facility] Afluria Afluria 2021-01-01 14:46:00 Completed [facility] Afluria Afluria 2021-01-01 14:46:00 Completed [facility] Afluria Afluria 2021-01-01 14:46:00 Completed [facility] Afluria Afluria 2021-01-01 14:46:00 Completed [facility] Afluria Afluria 2021-01-01 14:46:00 Completed [facility] Afluria Afluria 2021-01-01 14:46:00 Completed [facility] Afluria Afluria 2021-01-01 14:46:00 Completed [facility] Fluzone Fluzone 2019-04-02 08:45:00 Completed [facility] Fluzone Fluzone 2019-04-02 08:45:00 Completed [facility] Fluzone Fluzone 2019-04-02 08:45:00 Completed [facility] Fluzone Fluzone 2019-04-02 08:45:00 Completed [facility] Fluzone Fluzone 2019-04-02 08:45:00 Completed [facility] Fluzone Fluzone 2019-04-02 08:45:00 Completed [facility] Fluzone Fluzone 2019-04-02 08:45:00 Completed [facility] Fluzone Fluzone 2019-04-02 08:45:00 Completed [facility] Fluzone Fluzone 2019-04-02 08:45:00 Completed [facility] Fluzone Fluzone 2019-04-02 08:45:00 Completed [facility] Fluzone Fluzone 2019-04-02 08:45:00 Completed [facility] Fluzone Fluzone 2019-04-02 08:45:00 Completed [facility] Fluzone Fluzone 2019-04-02 08:45:00 Completed [facility] Fluzone Fluzone 2019-04-02 08:45:00 Completed [facility] Fluzone Fluzone 2019-04-02 08:45:00 Completed [facility] Fluzone Fluzone 2019-04-02 08:45:00 Completed [facility] Fluzone Fluzone 2019-04-02 08:45:00 Completed [facility] Fluzone Fluzone 2019-04-02 08:45:00 Completed [facility] Fluzone Fluzone 2019-04-02 08:45:00 Completed [facility] Fluzone Fluzone 2019-04-02 08:45:00 Completed [facility] Fluzone Fluzone 2019-04-02 00:00:00 Completed [facility] Afluria Afluria Unknown Completed [facility] Fluzone Fluzone Unknown Completed [facility] Flucelvax - single dose syringe Flucelvax - single dose syringe Unknown Completed [facility] Afluria Afluria Unknown Completed [facility] Fluzone Fluzone Unknown Completed [facility] Flucelvax - single dose syringe Flucelvax - single dose syringe Unknown Completed [facility] Flucelvax - single dose syringe Flucelvax - single dose syringe Unknown Completed [facility] Fluzone Fluzone Unknown Completed [facility] Afluria Afluria Unknown Completed [facility] Afluria Afluria Unknown Completed [facility] Fluzone Fluzone Unknown Completed [facility] Flucelvax - single dose syringe Flucelvax - single dose syringe Unknown Completed [facility] Afluria Afluria Unknown Completed [facility] Fluzone Fluzone Unknown Completed [facility] Flucelvax - single dose syringe Flucelvax - single dose syringe Unknown Completed [facility] Afluria Afluria Unknown Completed [facility] Fluzone Fluzone Unknown Completed [facility] Flucelvax - single dose syringe Flucelvax - single dose syringe Unknown Completed [facility] Afluria Afluria Unknown Completed [facility] Fluzone Fluzone Unknown Completed [facility] Flucelvax - single dose syringe Flucelvax - single dose syringe Unknown Completed [facility] Afluria Afluria Unknown Completed [facility] Fluzone Fluzone Unknown Completed [facility] Flucelvax - single dose syringe Flucelvax - single dose syringe Unknown Completed [facility] Afluria Afluria Unknown Completed [facility] Fluzone Fluzone Unknown Completed [facility] Flucelvax (ccIIV4) - SDS - 0.5mL Flucelvax (ccIIV4) - SDS - 0.5mL Unknown Completed [facility] Afluria Afluria Unknown Completed [facility] Fluzone Fluzone Unknown Completed [facility] Flucelvax (ccIIV4) - SDS - 0.5mL Flucelvax (ccIIV4) - SDS - 0.5mL Unknown Completed [facility] Afluria Afluria Unknown Completed [facility] Fluzone Fluzone Unknown Completed [facility] Flucelvax (ccIIV4) - SDS - 0.5mL Flucelvax (ccIIV4) - SDS - 0.5mL Unknown Completed [facility] Afluria Afluria Unknown Completed [facility] Fluzone Fluzone Unknown Completed [facility] Flucelvax (ccIIV4) - SDS - 0.5mL Flucelvax (ccIIV4) - SDS - 0.5mL Unknown Completed [facility] Afluria Afluria Unknown Completed [facility] Fluzone Fluzone Unknown Completed [facility] Flucelvax (ccIIV4) - SDS - 0.5mL Flucelvax (ccIIV4) - SDS - 0.5mL Unknown Completed [facility] Afluria Afluria Unknown Completed [facility] Fluzone Fluzone Unknown Completed [facility] Flucelvax (ccIIV4) - SDS - 0.5mL Flucelvax (ccIIV4) - SDS - 0.5mL Unknown Completed [facility] Afluria Afluria Unknown Completed [facility] Fluzone Fluzone Unknown Completed [facility] Flucelvax (ccIIV4) - SDS - 0.5mL Flucelvax (ccIIV4) - SDS - 0.5mL Unknown Completed [facility] Afluria Afluria Unknown Completed [facility] Fluzone Fluzone Unknown Completed [facility] Flucelvax (ccIIV4) - SDS - 0.5mL Flucelvax (ccIIV4) - SDS - 0.5mL Unknown Completed [facility] Afluria Afluria Unknown Completed [facility] Fluzone Fluzone Unknown Completed [facility] Flucelvax (ccIIV4) - SDS - 0.5mL Flucelvax (ccIIV4) - SDS - 0.5mL Unknown Completed [facility] Afluria Afluria Unknown Completed [facility] Fluzone Fluzone Unknown Completed [facility] Flucelvax (ccIIV4) - SDS - 0.5mL Flucelvax (ccIIV4) - SDS - 0.5mL Unknown Completed [facility] Afluria Afluria Unknown Completed [facility] Fluzone Fluzone Unknown Completed [facility] Flucelvax (ccIIV4) - SDS - 0.5mL Flucelvax (ccIIV4) - SDS - 0.5mL Unknown Completed [facility] Afluria Afluria Unknown Completed [facility] Fluzone Fluzone Unknown Completed [facility] Flucelvax (ccIIV4) - SDS - 0.5mL Flucelvax (ccIIV4) - SDS - 0.5mL Unknown Completed [facility] Afluria Afluria Unknown Completed [facility] Fluzone Fluzone Unknown Completed [facility] Flucelvax (ccIIV4) - SDS - 0.5mL Flucelvax (ccIIV4) - SDS - 0.5mL Unknown Completed [facility] Afluria Afluria Unknown Completed [facility] Fluzone Fluzone Unknown Completed [facility] Flucelvax (ccIIV4) - SDS - 0.5mL Flucelvax (ccIIV4) - SDS - 0.5mL Unknown Completed [facility] Afluria Afluria Unknown Completed [facility] Fluzone Fluzone Unknown Completed [facility] Flucelvax (ccIIV4) - SDS - 0.5mL Flucelvax (ccIIV4) - SDS - 0.5mL Unknown Completed [facility] Afluria Afluria Unknown Completed [facility] Fluzone Fluzone Unknown Completed [facility] Flucelvax (ccIIV4) - SDS - 0.5mL Flucelvax (ccIIV4) - SDS - 0.5mL Unknown Completed [facility] Afluria Afluria Unknown Completed [facility] Fluzone Fluzone Unknown Completed [facility] Flucelvax (ccIIV4) - SDS - 0.5mL Flucelvax (ccIIV4) - SDS - 0.5mL Unknown Completed [facility] Afluria Afluria Unknown Completed [facility] Fluzone Fluzone Unknown Completed [facility] Flucelvax (ccIIV4) - SDS - 0.5mL Flucelvax (ccIIV4) - SDS - 0.5mL Unknown Completed [facility] Afluria Afluria Unknown Completed [facility] Fluzone Fluzone Unknown Completed [facility] Flucelvax (ccIIV4) - SDS - 0.5mL Flucelvax (ccIIV4) - SDS - 0.5mL Unknown Completed [facility] Afluria Afluria Unknown Completed [facility] Fluzone Fluzone Unknown Completed [facility] Flucelvax (ccIIV4) - SDS - 0.5mL Flucelvax (ccIIV4) - SDS - 0.5mL Unknown Completed [facility] Afluria Afluria Unknown Completed [facility] Fluzone Fluzone Unknown Completed [facility] Flucelvax (ccIIV4) - SDS - 0.5mL Flucelvax (ccIIV4) - SDS - 0.5mL Unknown Completed [facility] Afluria Afluria Unknown Completed [facility] Fluzone Fluzone Unknown Completed [facility] Flucelvax (ccIIV4) - SDS - 0.5mL Flucelvax (ccIIV4) - SDS - 0.5mL Unknown Completed [facility] Afluria Afluria Unknown Completed [facility] Fluzone Fluzone Unknown Completed [facility] Flucelvax (ccIIV4) - SDS - 0.5mL Flucelvax (ccIIV4) - SDS - 0.5mL Unknown Completed [facility] Afluria Afluria Unknown Completed [facility] Fluzone Fluzone Unknown Completed [facility] Flucelvax (ccIIV4) - SDS - 0.5mL Flucelvax (ccIIV4) - SDS - 0.5mL Unknown Completed [facility] Boostrix (Tdap) Boostrix (Tdap) Unknown Completed [facility] Vital Signs Vital Name Observation Time Observation Value Comments Nidia marie height 2024-10-12 13:45:00 64.50 [in_i] Com [facility] weight 2024-10-12 13:45:00 215 [lb_av] Comm [facility] temperature 2024-10-12 13:45:00 97.2 [degF] Com [facility] bmi 2024-10-12 13:45:00 36.33 kg/m2 Comm [facility] oximetry 2024-10-12 13:45:00 97 % Commo n [facility] respiratory rate 2024-10-12 13:45:00 16 /min [facility] blood pressure systolic 2024-10-12 13:45:00 122 mm[Hg] [facility] blood pressure diastolic 2024-10-12 13:45:00 78 mm[Hg] [facility] height 2024-07-08 13:20:00 64.50 [in_i] Com [facility] weight 2024-07-08 13:20:00 219 [lb_av] Comm on [facility] temperature 2024-07-08 13:20:00 97.0 [degF] Com [facility] bmi 2024-07-08 13:20:00 37.01 kg/m2 Comm [facility] oximetry 2024-07-08 13:20:00 98 % Com[facility] respiratory rate 2024-07-08 13:20:00 16 /min [facility] blood pressure systolic 2024-07-08 13:20:00 124 mm[Hg] [facility] blood pressure diastolic 2024-07-08 13:20:00 72 mm[Hg] [facility] height 2024-05-12 13:20:00 64.50 [in_i] Com [facility] weight 2024-05-12 13:20:00 224 [lb_av] Comm on [facility] temperature 2024-05-12 13:20:00 97.4 [degF] Com [facility] bmi 2024-05-12 13:20:00 37.85 kg/m2 Comm [facility] oximetry 2024-05-12 13:20:00 98 % [facility] respiratory rate 2024-05-12 13:20:00 16 /min [facility] blood pressure systolic 2024-05-12 13:20:00 124 mm[Hg] [facility] blood pressure diastolic 2024-05-12 13:20:00 78 mm[Hg] [facility] BMI (Body Mass Index) 2024-05-06 00:00:00 38.6 kg/m2 [facility] Weight 2024-05-06 00:00:00 225 [lb_av] [facility] Height 2024-05-06 00:00:00 64 [in_i] [facility] height 2024-04-21 15:20:00 64.50 [in_i] Com [facility] weight 2024-04-21 15:20:00 225.8 [lb_av] Co [facility] temperature 2024-04-21 15:20:00 97.3 [degF] Com [facility] bmi 2024-04-21 15:20:00 38.16 kg/m2 [facility] oximetry 2024-04-21 15:20:00 96 % [facility] respiratory rate 2024-04-21 15:20:00 16 /min [facility] blood pressure systolic 2024-04-21 15:20:00 136 mm[Hg] [facility] blood pressure diastolic 2024-04-21 15:20:00 70 mm[Hg] [facility] Height 2024-04-19 00:00:00 64 [in_i] [facility] BMI (Body Mass Index) 2024-04-19 00:00:00 39.3 kg/m2 [facility] Weight 2024-04-19 00:00:00 229 [lb_av] [facility] BP Diastolic 2024-04-19 00:00:00 62 mm[Hg] [facility] BP Systolic 2024-04-19 00:00:00 136 mm[Hg] [facility] height 2024-03-11 10:20:00 64.50 [in_i] Com [facility] weight 2024-03-11 10:20:00 230.4 [lb_av] Co [facility] temperature 2024-03-11 10:20:00 97.2 [degF] Com [facility] bmi 2024-03-11 10:20:00 38.93 kg/m2 Comm [facility] oximetry 2024-03-11 10:20:00 97 % [facility] respiratory rate 2024-03-11 10:20:00 16 /min [facility] blood pressure systolic 2024-03-11 10:20:00 126 mm[Hg] [facility] blood pressure diastolic 2024-03-11 10:20:00 62 mm[Hg] [facility] height 2024-03-11 10:20:00 64.50 [in_i] Com [facility] weight 2024-03-11 10:20:00 230.4 [lb_av] Co [facility] temperature 2024-03-11 10:20:00 97.2 [degF] Com [facility] bmi 2024-03-11 10:20:00 38.93 kg/m2 Comm [facility] oximetry 2024-03-11 10:20:00 97 % [facility] respiratory rate 2024-03-11 10:20:00 16 /min [facility] blood pressure systolic 2024-03-11 10:20:00 126 mm[Hg] [facility] blood pressure diastolic 2024-03-11 10:20:00 62 mm[Hg] [facility] BP Diastolic 2024-02-11 00:00:00 65 mm[Hg] [facility] Body Weight 2024-02-11 00:00:00 237.8 [lb_av] [facility] BP Systolic 2024-02-11 00:00:00 148 mm[Hg] [facility] Height 2024-02-11 00:00:00 64 [in_i] [facility] height 2024-02-09 14:00:00 64.50 [in_i] Com [facility] weight 2024-02-09 14:00:00 236 [lb_av] [facility] temperature 2024-02-09 14:00:00 97.3 [degF] Com [facility] bmi 2024-02-09 14:00:00 39.88 kg/m2 [facility] oximetry 2024-02-09 14:00:00 96 % [facility] respiratory rate 2024-02-09 14:00:00 16 /min [facility] blood pressure systolic 2024-02-09 14:00:00 144 mm[Hg] [facility] blood pressure diastolic 2024-02-09 14:00:00 70 mm[Hg] [facility] Body Weight 2024-01-22 00:00:00 238.4 [lb_av] [facility] Height 2024-01-22 00:00:00 64 [in_i] [facility] BP Systolic 2024-01-22 00:00:00 142 mm[Hg] [facility] BMI (Body Mass Index) 2024-01-22 00:00:00 40.9 kg/m2 [facility] BP Diastolic 2024-01-22 00:00:00 71 mm[Hg] [facility] Systolic blood pressure 2024-01-13 18:54:00 122 mm[Hg] [facility] Diastolic blood pressure 2024-01-13 18:54:00 80 mm[Hg] [facility] Heart rate 2024-01-13 18:54:00 65 /min [facility] 2024-01-13 18:54:00 18 /min [facility] Body height 2024-01-13 18:54:00 162.6 cm [facility] Body weight 2024-01-13 18:54:00 108.727 kg [facility] BMI 2024-01-13 18:54:00 41.14 kg/m2 [facility] Oxygen saturation in Arterial blood by Pulse oximetry 2024-01-13 18:54:00 96 /min [facility] height 2023-12-16 11:00:00 64.50 [in_i] Com [facility] weight 2023-12-16 11:00:00 240 [lb_av] Comm on [facility] temperature 2023-12-16 11:00:00 97.5 [degF] Com [facility] bmi 2023-12-16 11:00:00 40.56 kg/m2 Comm [facility] height 2023-10-31 15:00:00 64.50 [in_i] Com [facility] weight 2023-10-31 15:00:00 240 [lb_av] Comm [facility] temperature 2023-10-31 15:00:00 97.4 [degF] Com [facility] bmi 2023-10-31 15:00:00 40.56 kg/m2 [facility] oximetry 2023-10-31 15:00:00 97 % [facility] respiratory rate 2023-10-31 15:00:00 16 /min [facility] blood pressure systolic 2023-10-31 15:00:00 128 mm[Hg] [facility] blood pressure diastolic 2023-10-31 15:00:00 74 mm[Hg] [facility] height 2023-10-31 15:00:00 64.50 [in_i] Com [facility] weight 2023-10-31 15:00:00 240 [lb_av] Comm [facility] temperature 2023-10-31 15:00:00 97.4 [degF] Com [facility] bmi 2023-10-31 15:00:00 40.56 kg/m2 Comm [facility] oximetry 2023-10-31 15:00:00 97 % [facility] respiratory rate 2023-10-31 15:00:00 16 /min [facility] blood pressure systolic 2023-10-31 15:00:00 128 mm[Hg] [facility] blood pressure diastolic 2023-10-31 15:00:00 74 mm[Hg] [facility] height 2023-10-06 08:40:00 64.50 [in_i] Com [facility] weight 2023-10-06 08:40:00 239 [lb_av] Comm on [facility] temperature 2023-10-06 08:40:00 97.2 [degF] Com [facility] bmi 2023-10-06 08:40:00 40.39 kg/m2 Comm [facility] oximetry 2023-10-06 08:40:00 96 % [facility] respiratory rate 2023-10-06 08:40:00 16 /min [facility] blood pressure systolic 2023-10-06 08:40:00 128 mm[Hg] [facility] blood pressure diastolic 2023-10-06 08:40:00 74 mm[Hg] [facility] Systolic blood pressure 2023-09-03 19:21:00 147 mm[Hg] [facility] Diastolic blood pressure 2023-09-03 19:21:00 57 mm[Hg] [facility] Heart rate 2023-09-03 19:21:00 78 /[facility] Oxygen saturation in Arterial blood by Pulse oximetry 2023-09-03 19:21:00 96 /min [facility] Body height 2023-09-03 19:19:00 162.6 cm [facility] Body weight 2023-09-03 19:19:00 111.131 kg [facility] BMI 2023-09-03 19:19:00 42.05 kg/m2 [facility] height 2023-07-30 14:00:00 64.50 [in_i] Com [facility] weight 2023-07-30 14:00:00 242 [lb_av] Comm on [facility] temperature 2023-07-30 14:00:00 97.5 [degF] Com [facility] bmi 2023-07-30 14:00:00 40.89 kg/m2 Comm on [facility] oximetry 2023-07-30 14:00:00 97 % Com[facility] respiratory rate 2023-07-30 14:00:00 16 /min [facility] blood pressure systolic 2023-07-30 14:00:00 126 mm[Hg] [facility] blood pressure diastolic 2023-07-30 14:00:00 74 mm[Hg] [facility] Systolic blood pressure 2023-07-08 16:48:00 142 mm[Hg] [facility] Diastolic blood pressure 2023-07-08 16:48:00 67 mm[Hg] [facility] Heart rate 2023-07-08 16:48:00 98 /min [facility] Body height 2023-07-08 16:48:00 162.6 cm [facility] Body weight 2023-07-08 16:48:00 110.133 kg [facility] BMI 2023-07-08 16:48:00 41.68 kg/m2 [facility] height 2023-06-30 15:00:00 64.50 [in_i] Com [facility] weight 2023-06-30 15:00:00 238 [lb_av] Comm on [facility] bmi 2023-06-30 15:00:00 40.22 kg/m2 Comm [facility] blood pressure systolic 2023-06-30 15:00:00 125 mm[Hg] [facility] blood pressure diastolic 2023-06-30 15:00:00 86 mm[Hg] [facility] height 2023-05-15 13:30:00 64.50 [in_i] Com [facility] weight 2023-05-15 13:30:00 238 [lb_av] Comm on [facility] temperature 2023-05-15 13:30:00 97.6 [degF] Com [facility] bmi 2023-05-15 13:30:00 40.22 kg/m2 Comm [facility] blood pressure systolic 2023-05-15 13:30:00 128 mm[Hg] [facility] blood pressure diastolic 2023-05-15 13:30:00 74 mm[Hg] [facility] height 2023-04-21 10:40:00 64.50 [in_i] Com [facility] weight 2023-04-21 10:40:00 238 [lb_av] Comm on [facility] temperature 2023-04-21 10:40:00 97.1 [degF] Com [facility] bmi 2023-04-21 10:40:00 40.22 kg/m2 Comm on [facility] oximetry 2023-04-21 10:40:00 99 % Com[facility] respiratory rate 2023-04-21 10:40:00 17 /min [facility] blood pressure systolic 2023-04-21 10:40:00 126 mm[Hg] [facility] blood pressure diastolic 2023-04-21 10:40:00 70 mm[Hg] [facility] height 2023-04-21 10:40:00 64.50 [in_i] Com [facility] weight 2023-04-21 10:40:00 238 [lb_av] Comm on [facility] temperature 2023-04-21 10:40:00 97.1 [degF] Com [facility] bmi 2023-04-21 10:40:00 40.22 kg/m2 Comm on [facility] oximetry 2023-04-21 10:40:00 99 % Commo [facility] respiratory rate 2023-04-21 10:40:00 17 /min [facility] blood pressure systolic 2023-04-21 10:40:00 126 mm[Hg] [facility] blood pressure diastolic 2023-04-21 10:40:00 70 mm[Hg] [facility] height 2023-02-07 14:00:00 64.50 [in_i] Com [facility] weight 2023-02-07 14:00:00 237 [lb_av] Comm on [facility] temperature 2023-02-07 14:00:00 97.1 [degF] Com [facility] bmi 2023-02-07 14:00:00 40.05 kg/m2 Comm on [facility] oximetry 2023-02-07 14:00:00 95 % Commo [facility] respiratory rate 2023-02-07 14:00:00 16 /min [facility] blood pressure systolic 2023-02-07 14:00:00 134 mm[Hg] [facility] blood pressure diastolic 2023-02-07 14:00:00 68 mm[Hg] [facility] height 2023-01-08 13:00:00 64.50 [in_i] Com [facility] weight 2023-01-08 13:00:00 232 [lb_av] Comm on [facility] temperature 2023-01-08 13:00:00 97.8 [degF] Com [facility] bmi 2023-01-08 13:00:00 39.2 kg/m2 [facility] oximetry 2023-01-08 13:00:00 97 % [facility] respiratory rate 2023-01-08 13:00:00 16 /min [facility] blood pressure systolic 2023-01-08 13:00:00 137 mm[Hg] [facility] blood pressure diastolic 2023-01-08 13:00:00 57 mm[Hg] [facility] Systolic blood pressure 2022-11-12 16:26:00 120 mm[Hg] [facility] Diastolic blood pressure 2022-11-12 16:26:00 60 mm[Hg] [facility] Heart rate 2022-11-12 16:26:00 74 /min [facility] Body height 2022-11-12 16:26:00 162.6 cm [facility] Body weight 2022-11-12 16:26:00 109.09 kg [facility] BMI 2022-11-12 16:26:00 41.28 kg/m2 [facility] Oxygen saturation in Arterial blood by Pulse oximetry 2022-11-12 16:26:00 98 /min [facility] height 2022-07-10 14:00:00 64.50 [in_i] Com [facility] weight 2022-07-10 14:00:00 232 [lb_av] Comm on [facility] temperature 2022-07-10 14:00:00 97.1 [degF] Com [facility] bmi 2022-07-10 14:00:00 39.2 kg/m2 [facility] oximetry 2022-07-10 14:00:00 97 % [facility] respiratory rate 2022-07-10 14:00:00 17 /min [facility] blood pressure systolic 2022-07-10 14:00:00 136 mm[Hg] [facility] blood pressure diastolic 2022-07-10 14:00:00 72 mm[Hg] [facility] height 2022-07-10 14:40:00 64.50 [in_i] Com [facility] weight 2022-07-10 14:40:00 232 [lb_av] Comm on [facility] temperature 2022-07-10 14:40:00 97.1 [degF] Com [facility] bmi 2022-07-10 14:40:00 39.2 kg/m2 [facility] oximetry 2022-07-10 14:40:00 97 % [facility] respiratory rate 2022-07-10 14:40:00 17 /min [facility] blood pressure systolic 2022-07-10 14:40:00 136 mm[Hg] [facility] blood pressure diastolic 2022-07-10 14:40:00 72 mm[Hg] [facility] Systolic blood pressure 2022-05-14 18:45:00 135 mm[Hg] [facility] Diastolic blood pressure 2022-05-14 18:45:00 74 mm[Hg] [facility] Heart rate 2022-05-14 18:45:00 83 /min [facility] Respiratory rate 2022-05-14 18:45:00 18 /min [facility] Body height 2022-05-14 18:45:00 162.6 cm [facility] Body weight 2022-05-14 18:45:00 106.278 kg [facility] BMI 2022-05-14 18:45:00 40.22 kg/m2 [facility] height 2022-04-11 11:00:00 64.50 [in_i] Com [facility] weight 2022-04-11 11:00:00 230 [lb_av] Comm on [facility] bmi 2022-04-11 11:00:00 38.87 kg/m2 Comm on [facility] height 2022-02-14 15:00:00 64.50 [in_i] Com [facility] weight 2022-02-14 15:00:00 228.4 [lb_av] Co [facility]mon [facility] temperature 2022-02-14 15:00:00 97.3 [degF] Com [facility] bmi 2022-02-14 15:00:00 38.60 kg/m2 Comm on [facility] oximetry 2022-02-14 15:00:00 98 % Commo n [facility] respiratory rate 2022-02-14 15:00:00 16 /min [facility] blood pressure systolic 2022-02-14 15:00:00 135 mm[Hg] Common [facility] blood pressure diastolic 2022-02-14 15:00:00 70 mm[Hg] Common [facility] height 2022-01-21 13:20:00 64.50 [in_i] Com [facility] weight 2022-01-21 13:20:00 230 [lb_av] Comm on [facility] bmi 2022-01-21 13:20:00 38.87 kg/m2 Comm on [facility] height 2021-11-15 15:40:00 64.50 [in_i] Com [facility] weight 2021-11-15 15:40:00 226.8 [lb_av] Co mmon [facility] temperature 2021-11-15 15:40:00 97.2 [degF] Com [facility] bmi 2021-11-15 15:40:00 38.32 kg/m2 Comm on [facility] oximetry 2021-11-15 15:40:00 96 % Commo n [facility] respiratory rate 2021-11-15 15:40:00 16 /min [facility] blood pressure systolic 2021-11-15 15:40:00 124 mm[Hg] [facility] blood pressure diastolic 2021-11-15 15:40:00 68 mm[Hg] [facility] Systolic blood pressure 2021-10-30 16:52:00 126 mm[Hg] [facility] Diastolic blood pressure 2021-10-30 16:52:00 79 mm[Hg] [facility] Heart rate 2021-10-30 16:52:00 74 /min [facility] Body weight 2021-10-30 16:52:00 105.597 kg [facility] BMI 2021-10-30 16:52:00 39.96 kg/m2 [facility] Oxygen saturation in Arterial blood by Pulse oximetry 2021-10-30 16:52:00 98 /min [facility] height 2021-10-18 15:40:00 64.50 [in_i] Com [facility] weight 2021-10-18 15:40:00 228.8 [lb_av] Co mmon [facility] temperature 2021-10-18 15:40:00 97.4 [degF] Com [facility] bmi 2021-10-18 15:40:00 38.66 kg/m2 Comm on [facility] oximetry 2021-10-18 15:40:00 97 % Commo n [facility] respiratory rate 2021-10-18 15:40:00 16 /min Common [facility] blood pressure systolic 2021-10-18 15:40:00 130 mm[Hg] Common [facility] blood pressure diastolic 2021-10-18 15:40:00 68 mm[Hg] [facility] height 2021-09-13 15:40:00 64.50 [in_i] Com [facility] weight 2021-09-13 15:40:00 231.6 [lb_av] Co mmon [facility] temperature 2021-09-13 15:40:00 97.2 [degF] Com [facility] bmi 2021-09-13 15:40:00 39.14 kg/m2 Comm on [facility] oximetry 2021-09-13 15:40:00 96 % Commo n [facility] respiratory rate 2021-09-13 15:40:00 16 /min [facility] blood pressure systolic 2021-09-13 15:40:00 140 mm[Hg] Common [facility] blood pressure diastolic 2021-09-13 15:40:00 82 mm[Hg] Common [facility] height 2021-08-14 13:00:00 64.50 [in_i] Com [facility] weight 2021-08-14 13:00:00 231 [lb_av] Comm on [facility] temperature 2021-08-14 13:00:00 96.8 [degF] Com [facility] bmi 2021-08-14 13:00:00 39.03 kg/m2 Comm on [facility] oximetry 2021-08-14 13:00:00 98 % Commo n [facility] respiratory rate 2021-08-14 13:00:00 16 /min Common [facility] blood pressure systolic 2021-08-14 13:00:00 155 mm[Hg] Common [facility] blood pressure diastolic 2021-08-14 13:00:00 70 mm[Hg] [facility] height 2021-06-05 14:00:00 64.50 [in_i] Com [facility] weight 2021-06-05 14:00:00 233 [lb_av] Comm on [facility] temperature 2021-06-05 14:00:00 96.7 [degF] Com [facility] bmi 2021-06-05 14:00:00 39.37 kg/m2 Comm on [facility] blood pressure systolic 2021-06-05 14:00:00 146 mm[Hg] [facility] blood pressure diastolic 2021-06-05 14:00:00 84 mm[Hg] [facility] height 2021-05-11 13:20:00 64.50 [in_i] Com [facility] weight 2021-05-11 13:20:00 228.7 [lb_av] Co mmon [facility] temperature 2021-05-11 13:20:00 97.8 [degF] Com [facility] bmi 2021-05-11 13:20:00 38.65 kg/m2 Comm on [facility] oximetry 2021-05-11 13:20:00 98 % Commo n [facility] respiratory rate 2021-05-11 13:20:00 18 /min Common [facility] blood pressure systolic 2021-05-11 13:20:00 139 mm[Hg] [facility] blood pressure diastolic 2021-05-11 13:20:00 67 mm[Hg] [facility] height 2021-05-11 14:00:00 64.50 [in_i] Com [facility] weight 2021-05-11 14:00:00 228.7 [lb_av] Co mmon [facility] temperature 2021-05-11 14:00:00 97.8 [degF] Com [facility] bmi 2021-05-11 14:00:00 38.65 kg/m2 Comm on [facility] blood pressure systolic 2021-05-11 14:00:00 139 mm[Hg] Common [facility] blood pressure diastolic 2021-05-11 14:00:00 67 mm[Hg] [facility] height 2021-04-02 15:20:00 64.50 [in_i] Com [facility] weight 2021-04-02 15:20:00 228 [lb_av] Comm on [facility] temperature 2021-04-02 15:20:00 96.9 [degF] Com [facility] bmi 2021-04-02 15:20:00 38.53 kg/m2 Comm on [facility] oximetry 2021-04-02 15:20:00 97 % Commo n [facility] respiratory rate 2021-04-02 15:20:00 19 /min [facility] blood pressure systolic 2021-04-02 15:20:00 138 mm[Hg] [facility] blood pressure diastolic 2021-04-02 15:20:00 65 mm[Hg] [facility] height 2020-12-22 10:00:00 64.50 [in_i] Com [facility] weight 2020-12-22 10:00:00 220 [lb_av] Comm on [facility] bmi 2020-12-22 10:00:00 37.18 kg/m2 Comm on [facility] height 2020-12-13 12:20:00 64.50 [in_i] Com [facility] weight 2020-12-13 12:20:00 220 [lb_av] Comm on [facility] bmi 2020-12-13 12:20:00 37.18 kg/m2 Comm on [facility] Respiratory Rate 2024-04-21 14:17:00 16.00 /min [...] Performing Clinician Source US TRANSVAGINAL 2024-04-22 00:00:00 [facility] MAMMO, screening, digital, bilateral 2024-04-19 00:00:00 [facility] POCT HEMOGLOBIN A1C TEST 2024-01-13 19:08:[address] [facility] Repair of Umbilical Hernia 2024-01-01 00:00:00 [facility] LAB RESULTS ([facility]) 2023-11-03 18:48:45 Docto r Unassigned, Rosamond [facility] HB ECG ROUTINE & RHYTHM STRIP 2023-09-03 19:26:[address] [facility] REFERRAL- REQUEST/RESPONSE 2023-08-04 13:13:39 D octor Unassigned, Rosamond [facility] CT ABDOMEN W WO CONTRAST 2023-07-12 17:16:[address] [facility] HB CREATININE SERUM/BLOOD FOR IMAGING 2023-07-12 16:14:[address] [facility] REFERRAL- REQUEST/RESPONSE 2023-07-09 15:44:52 D octor Unassigned, Rosamond [facility] POCT HEMOGLOBIN A1C TEST 2023-07-08 20:35:[address] [facility] DIABETES TESTING REPORTS 2022-11-12 05:01:00 Doc tor Unassigned, Rosamond [facility] REFERRAL- REQUEST/RESPONSE 2022-05-14 06:01:00 D octor Unassigned, Rosamond [facility] EXTERNAL PROVIDER RECORDS 2021-11-26 05:01:00 Do ctor Unassigned, Rosamond [facility] Hysteroscopy 2018-03-10 00:00:00 Tomi M edical Cholecystectomy (Gallbladder) 1996-03-10 00:00:00 [facility] Breast Reduction 1996-03-10 00:00:00 Priv [facility] Medical Encounters Start Date/Time End Date/Time Encounter Type Admission Type Attending [facility] Facility Care Department Encounter ID Source 2023-09-05 15:25:00 Outpatient Gonzalez, Chayo STLMLC STLC [id number] [facility] 2023-07-30 13:58:00 Outpatient Gonzalez Chayo STLMLC STLMLC [id number] [facility] 2023-06-04 10:11:00 Outpatient Gonzalez, Chayo STLMLC STLMLC [id number] [facility] 2023-05-12 14:47:00 Outpatient Gonzalez, Chayo STLMLC STLMLC [id number] [facility] 2023-05-05 15:12:00 Outpatient Gonzalez, Chayo STLMLC STLMLC [id number] [facility] 2023-03-25 11:13:00 Outpatient Gonzalez, Chayo STLMLC STLMLC [id number] [facility] 2022-07-09 13:18:00 Outpatient Gonzalez, Chayo STLMLC STLMLC [id number] [facility] 2022-05-28 14:00:00 Outpatient Gonzalez, Chayo STLMLC STLMLC [id number] [facility] 2022-04-29 11:47:01 Outpatient Gonzalez, Chayo STLMLC STLC [id number] [facility] 2022-04-11 11:02:01 Outpatient Chayo Gonzalez STLMLC STLMLC [id number] [facility] 2022-04-10 09:38:01 Outpatient Chayo Gonzalez STLMLC STLMLC [id number] [facility] 2022-04-04 15:02:00 Outpatient Chayo Gonzalez STLMLC STLMLC [id number] [facility] 2022-02-13 07:36:00 Outpatient Ruelas, Na STLMLC STLMLC [id number] [facility] 2022-01-17 11:35:01 Outpatient Ruelas, Na STLMLC STLMLC [id number] [facility] 2021-12-14 09:46:00 Outpatient Ruelas, Na STLMLC STLMLC [id number] [facility] 2021-10-16 15:14:01 Outpatient Ruelas, Na STLMLC STLMLC [id number] [facility] 2021-09-12 15:57:01 Outpatient Ruelas, Na STLMLC STLMLC [id number] [facility] 2021-09-11 10:21:01 Outpatient Ruelas, Na STLMLC STLMLC [id number] [facility] 2021-08-13 13:31:00 Outpatient Ruelas, Na STLMLC STLMLC [id number] [facility] 2021-05-18 11:01:01 Outpatient Ruelas, Na STLMLC STLMLC [id number] [facility] 2021-05-11 13:17:01 Outpatient Ruelas, Na STLMLC STLMLC [id number] [facility] 2021-05-10 09:35:00 Outpatient Ruelas, Na STLMLC STLMLC [id number] [facility] 2021-05-09 11:36:01 Outpatient Ruelas, Na STLMLC STLMLC [id number] [facility] 2021-04-10 14:01:01 Outpatient Ruelas, Na STLMLC STLMLC [id number] [facility] 2021-04-04 14:35:57 Outpatient Ruelas, Na STLMLC STLMLC [id number] [facility] 2021-04-04 14:32:10 Outpatient Ruelas, Na STLMLC STLMLC [id number] [facility] 2021-04-04 14:26:31 Outpatient Ruelas, Na STLMLC STLMLC [id number] [facility] 2021-04-04 14:22:06 Outpatient Ruelas, Na STLMLC STLMLC [id number] [facility] 2021-04-04 13:47:57 Outpatient Ruelas, Na STLMLC STLMLC [id number] [facility] 2021-04-04 13:31:15 Outpatient Jessenia, Na STLMLC STLMLC [id number] [facility] 2021-04-04 13:17:49 Outpatient Ruelas, Na STLMLC STLMLC [id number] [facility] 2021-04-04 13:15:11 Outpatient Ruelas, Na STLMLC STLMLC [id number] [facility] 2021-04-04 12:56:33 Outpatient Ruelas, Na STLMLC STLMLC [id number] [facility] 2021-04-04 12:51:32 Outpatient Ruelas, Na STLMLC STLMLC [id number] [facility] 2021-04-04 12:45:45 Outpatient Ruelas, Na STLMLC STLMLC [id number] [facility] 2021-04-04 12:44:50 Outpatient Ruelas, Na STLMLC STLMLC [id number] [facility] 2021-04-04 12:26:48 Outpatient Ruelas, Na STLMLC STLMLC [id number] [facility] 2021-04-04 12:25:49 Outpatient Ruelas, Na STLMLC STLMLC [id number] [facility] 2021-04-04 12:12:47 Outpatient Ruelas, Na STLMLC STLMLC [id number] [facility] 2021-04-04 12:03:01 Outpatient Ruelas, Na STLMLC STLMLC [id number] [facility] 2021-04-04 12:02:32 Outpatient Ruelas, Na STLMLC STLMLC [id number] [facility] 2021-04-04 11:46:04 Outpatient Ruelas, Na STLMLC STLMLC [id number] [facility] 2021-04-04 11:45:14 Outpatient Ruelas, Na STLMLC STLMLC [id number] [facility] 2021-04-04 11:44:02 Outpatient Ruelas, Na STLMLC STLMLC [id number] [facility] 2021-04-04 11:26:10 Outpatient Ruelas, Na STLMLC STLMLC [id number] [facility] 2021-04-04 11:25:37 Outpatient Ruelas, Na STLMLC STLMLC [id number] [facility] 2021-04-04 11:02:45 Outpatient Ruelas, Na STLMLC STLMLC [id number] [facility] 2020-04-11 11:00:00 Inpatient Amado Fongory [facility] [id number] [facility] 2020-03-07 14:40:00 Inpatient Luis Fong [facility] [id number] [facility] 2024-10-12 00:00:00 2024-10-12 00:00:00 OFFICE VISIT ESTAB PT LEVEL 4 STLMLC STLMLC [id number] [facility] 2024-09-23 00:00:00 2024-09-23 11:32:25 [facility] 1.2.840.114 350.1.13.10 4.2.7.2.686 [id number] [facility] 2024-09-21 14:30:00 2024-09-21 14:30:00 Outpatient R [facility] [id number] [facility] 2024-09-09 00:00:00 2024-09-09 00:00:00 (TEL) STLC STLC [id number] [facility] 2024-08-20 00:00:00 2024-08-23 08:00:47 Refill [facility] 1..840.114 350.1.13.10 4.2.7.2.686 [id number] [facility] 2024-08-09 00:00:00 2024-08-09 16:53:39 Telephone [facility] 1.2.840.114 350.1.13.10 4.2.7.2.686 [id number] [facility] 2024-07-19 00:00:00 2024-07-19 09:59:43 Refill Chauncey Ohara [facility] 1.2.840.114 350.1.13.10 4.2.7.2.686 [id number] [facility] 2024-07-13 13:00:00 2024-07-13 13:00:00 Outpatient R [facility] [id number] [facility] 2024-07-08 00:00:00 2024-07-08 00:00:00 OFFICE VISIT ESTAB PT LEVEL 4 STLMLC STLMLC [id number] [facility] 2023-03-19 00:00:00 2024-07-01 21:12:43 [facility] 1.2.840.114 350.1.13.10 4.2.7.2.686 [id number] [facility] 2024-06-28 00:00:00 2024-06-28 00:00:00 (TEL) STLMLC STLMLC [id number] [facility] 2024-06-21 00:00:00 2024-06-21 00:00:00 (TEL) STLMLC STLMLC [id number] [facility] 2024-06-09 00:00:00 2024-06-09 00:00:00 (TEL) STLMLC STLMLC [id number] [facility] 2024-06-02 00:00:00 2024-06-03 11:19:30 Refill Jose [facility] 1.2.840.114 350.1.13.10 4.2.7.2.686 [id number] [facility] 2024-06-02 00:00:00 2024-06-02 00:00:00 (TEL) STLMLC STLMLC [id number] [facility] 2024-05-31 00:00:00 2024-05-31 00:00:00 (TEL) STLMLC STLMLC [id number] [facility] 2024-05-12 00:00:00 2024-05-12 16:18:32 Telephone [facility] 1..840.114 350.1.13.10 4.2.7.2.686 [id number] [facility] 2024-05-12 00:00:00 2024-05-12 00:00:00 OFFICE VISIT ESTAB PT LEVEL 4 STLC STLC [id number] [facility] 2024-05-12 00:00:00 2024-05-12 00:00:00 (TEL) [facility] [id number] [facility] 2024-05-06 00:00:00 2024-05-06 00:00:00 Katharina Call, WORD PROCESSOR OPERATOR: [address], [place] [address], [place] [address] , Ph. [facility] - GC_GCBZW_[facility]* [id number] [facility] 2024-04-27 00:00:00 2024-04-27 00:00:00 (TEL) [facility] [id number] [facility] 2023-08-04 00:00:00 2024-04-24 07:41:23 Orders Only Doctor Unassigned, Rosamond Doctor Unassigned, Rosamond [facility] 1..840.114 350.1.13.10 4.2.7.2.686 [id number] [facility] 2023-11-03 00:00:00 2024-04-24 07:04:16 Orders Only Doctor Unassigned, Rosamond Doctor Unassigned, Rosamond [facility] [facility] 1..840.114 350.1.13.10 4.2.7.2.686 [id number] [facility] 2023-07-09 00:00:00 2024-04-24 02:07:22 Orders Only Doctor Unassigned, Rosamond Doctor Unassigned, Rosamond [facility] 1.2.840.114 350.1.13.10 4.2.7.2.686 [id number] [facility] 2024-04-22 00:00:00 2024-04-22 00:00:00 Sulma Soriano MD: [address], [address], [place] [address] , Ph. [facility] GC_GCBZW_[facility]* [id number] [facility] 2024-04-21 14:06:53 2024-04-21 14:06:53 Outpatient SFA [facility] [id number] Bo Nunn 2024-04-21 00:00:00 2024-04-21 00:00:00 Outpatient Visit SFA [facility] [id number] Bo Ortiz Edouard 2024-04-21 00:00:00 2024-04-21 00:00:00 (TEL) STLMLC STLMLC [id number] [facility] 2024-04-21 00:00:00 2024-04-21 00:00:00 OFFICE VISIT ESTAB PT LEVEL 3 STLMLC STLMLC [id number] [facility] 2024-04-19 00:00:00 2024-04-19 00:00:00 PALLAVI Nelson: [address], [place] [address] , Ph. [facility] - GC_GCBZW_Marilia beard Savage* [id number] [facility] 2024-03-31 00:00:00 2024-04-01 14:30:49 Teresa Nova [facility] MENDOC[facility] ..840.114 350.1.13.10 4.2.7.2.686 [id number] [facility] 2024-03-24 00:00:00 2024-03-24 00:00:00 (TEL) STLC STLC [id number] [facility] 2024-03-18 00:00:00 2024-03-19 08:16:28 Teresa Nova [facility] 1.2.840.114 350.1.13.10 4.2.7.2.686 [id number] [facility] 2024-03-11 00:00:00 2024-03-11 00:00:00 [facility] ST[facility] STLC [id number] [facility] 2024-03-11 00:00:00 2024-03-11 00:00:00 OFFICE VISIT ESTAB PT LEVEL 4 STLMLC STLC [id number] [facility] 2024-02-11 00:00:00 2024-02-11 00:00:00 ALEJANDRO Arevalo: [address], [place] [address] , Ph. [facility] - GC_GCBZW_Marilia beard Wright* [id number] [facility] 2024-02-09 00:00:00 2024-02-09 00:00:00 OFFICE VISIT ESTAB PT LEVEL 4 [facility] [id number] [facility] 2024-02-07 00:00:00 2024-02-07 00:00:00 (TEL) [facility] [id number] [facility] 2024-01-22 00:00:00 2024-01-22 00:00:00 ALEJANDRO Bales: [address], [place] [address] , Ph. [facility] - GC_GCBZW_Marilia beard Wright* [id number] [facility] 2024-01-13 14:00:00 2024-01-13 15:41:38 Bioprocess Development Engineer Visit Lab, Ang - [facility], Ang - [facility] HIGINIO?[facility] 1.84.114 350.1.13.10 4.2.7.2.686 [id number] [facility] 2024-01-13 13:00:00 2024-01-13 13:48:19 Outpatient R [facility] [id number] [facility] 2024-01-13 13:00:00 2024-01-13 13:48:19 Office Visit [facility] HIGINIO?[facility] 1.84.114 350.1.13.10 4.2.7.2.686 [id number] [facility] 2023-12-27 00:00:00 2023-12-29 08:10:31 [facility] M[facility] 1.84.114 350.1.13.10 4.2.7.2.686 [id number] [facility] 2023-12-25 00:00:00 2023-12-25 00:00:00 (TEL) STLMLC STLMLC [id number] [facility] 2023-12-16 00:00:00 2023-12-16 00:00:00 (INJ) Injection STLMLC STLMLC [id number] [facility] 2023-12-11 00:00:00 2023-12-15 10:50:39 Refill [facility] HIGINIO?[facility] 1.84.114 350.1.13.10 4.2.7.2.686 [id number] [facility] 2023-12-05 00:00:00 2023-12-08 10:54:19 Refill [facility] HIGINIO?[facility] 1.84.114 350.1.13.10 4.2.7.2.686 [id number] [facility] 2023-10-31 00:00:00 2023-10-31 00:00:00 OFFICE VISIT ESTAB PT LEVEL 4 STLMLC STLMLC [id number] [facility] 2023-10-20 00:00:00 2023-10-23 10:02:33 Telephone [facility] 1.2.840.114 350.1.13.10 4.2.7.2.686 [id number] [facility] 2023-10-09 00:00:00 2023-10-21 15:50:56 Refill [facility] 1..840.114 350.1.13.10 4.2.7.2.686 [id number] [facility] 2023-10-21 00:00:00 2023-10-21 00:00:00 (TEL) STLMLC STLMLC [id number] [facility] 2023-10-20 00:00:00 2023-10-20 00:00:00 (TEL) STLMLC STLMLC [id number] [facility] 2023-10-08 00:00:00 2023-10-08 00:00:00 (TEL) STLMLC STLMLC [id number] [facility] 2023-10-06 00:00:00 2023-10-06 00:00:00 OFFICE VISIT ESTAB PT LEVEL 3 STLMLC STLMLC [id number] [facility] 2023-09-11 00:00:00 2023-09-18 10:53:19 Patient Secure duncan June [facility] 1..840.114 350.1.13.10 4.2.7.2.686 [id number] [facility] 2023-09-03 14:00:00 2023-09-03 15:17:18 [facility] [id number] [facility] 2023-09-03 14:00:00 2023-09-03 15:17:18 Office Visit [facility] 1..840.114 350.1.13.10 4.2.7.2.686 [id number] [facility] 2023-08-26 12:00:00 2023-08-26 12:00:00 Outpatient Sergio [facility] [id number] [facility] 2023-07-11 00:00:00 2023-08-16 18:04:46 Patient Secure Msg Doctor Unassigned, Rosamond [facility] 1..840.114 350.1.13.10 4.2.7.2.686 [id number] [facility] 2023-07-31 00:00:00 2023-07-31 00:00:00 (TEL) STLC STLC [id number] [facility] 2023-07-30 00:00:00 2023-07-30 00:00:00 OFFICE VISIT ESTAB PT LEVEL 4 STLMLC STLC [id number] [facility] 2023-07-30 00:00:00 2023-07-30 00:00:00 (TEL) STLMLC STLMLC [id number] [facility] 2023-07-30 00:00:00 2023-07-30 00:00:00 (TEL) STLC STLMLC [id number] [facility] 2023-07-29 12:00:00 2023-07-29 12:15:00 [employer] Engineer Visit Lab, [facility] 1..840.114 [id number] [facility] 2023-07-29 12:00:00 2023-07-29 11:01:43 Outpatient R [facility] [id number] [facility] 2023-07-23 00:00:00 2023-07-24 12:12:21 Telephone [facility] 1.2.840.114 350.1.13.10 4.2.7.2.686 [id number] 220 [id number] [facility] 2023-07-17 12:45:00 2023-07-17 13:00:00 Bioprocess Development Engineer Visit Lab, Navin Bowden [facility] 1.2.840.114 350.1.13.10 4.2.7.2.686 [id number] [facility] 2023-07-17 12:45:00 2023-07-17 12:45:00 Outpatient R [facility] [id number] [facility] 2023-07-14 00:00:00 2023-07-14 00:00:00 (TEL) STLMLC STLMLC [id number] [facility] 2023-07-12 10:40:02 2023-07-12 23:59:00 Outpatient R [facility] [id number] [facility] 2023-07-12 10:40:02 2023-07-12 23:59:00 [facility] 1.2.840.114 350.1.13.10 4.2.7.2.686 [id number] [facility] 2023-07-08 11:30:00 2023-07-08 12:29:51 Outpatient R [facility] [id number] [facility] 2023-07-08 11:30:00 2023-07-08 12:29:51 Office Visit Teresa Jose [facility] 1.2.840.114 350.1.13.10 4.2.7.2.686 [id number] [facility] 2023-07-07 00:00:00 2023-07-07 00:00:00 (TEL) STLMLC STLMLC [id number] [facility] 2023-06-30 00:00:00 2023-06-30 00:00:00 (F/U) Follow Up Visit STLMLC STLMLC [id number] [facility] 2023-06-13 16:30:00 2023-06-13 16:30:00 Outpatient R SAFIA HOGAN [facility] [id number] [facility] 2023-06-03 00:00:00 2023-06-03 00:00:00 (TEL) STLMLC STLMLC [id number] [facility] 2023-05-27 00:00:00 2023-05-27 00:00:00 (TEL) STLMLC STLMLC [id number] [facility] 2023-05-16 00:00:00 2023-05-16 00:00:00 (TEL) STLMLC STLMLC [id number] [facility] 2023-05-15 00:00:00 2023-05-15 00:00:00 (HISTOLOGY MANAGER) New Patient STLMLC STLMLC [id number] [facility] 2023-05-07 00:00:00 2023-05-07 00:00:00 (TEL) STLMLC STLMLC [id number] [facility] 2023-05-02 00:00:00 2023-05-02 00:00:00 (TEL) STLMLC STLMLC [id number] [facility] 2023-04-30 00:00:00 2023-04-30 00:00:00 (TEL) STLMLC STLMLC [id number] [facility] 2023-04-21 00:00:00 2023-04-21 00:00:00 OFFICE VISIT ESTAB PT LEVEL 4 STLMLC STLMLC [id number] [facility] 2023-04-21 00:00:00 2023-04-21 00:00:00 [facility] STLMLC STLMLC [id number] [facility] 2023-04-16 00:00:00 2023-04-16 00:00:00 Refill [facility] 1.2.840.114 350.1.13.10 4.2.7.2.686 [id number] [facility] 2023-04-09 00:00:00 2023-04-09 00:00:00 Telephone [facility] 1.2.840.114 350.1.13.10 4.2.7.2.686 [id number] 220 [id number] [facility] 2023-04-03 00:00:00 2023-04-03 00:00:00 (TEL) STLMLC STLMLC [id number] [facility] 2023-03-23 00:00:00 2023-03-23 00:00:00 (WEB) STLMLC STLMLC [id number] [facility] 2023-03-21 00:00:00 2023-03-21 00:00:00 (TEL) STLMLC STLMLC [id number] [facility] 2023-03-18 13:30:00 2023-03-18 13:30:00 Outpatient R [facility] [id number] [facility] 2023-03-04 00:00:00 2023-03-04 00:00:00 (TEL) STLMLC STLMLC [id number] [facility] 2023-02-19 00:00:00 2023-02-19 00:00:00 Refill [facility] 1.2.840.114 350.1.13.10 4.2.7.2.686 [id number] [facility] 2023-02-07 00:00:00 2023-02-07 00:00:00 OFFICE VISIT ESTAB PT LEVEL 4 STLMLC STLMLC [id number] [facility] 2023-01-30 00:00:00 2023-01-30 00:00:00 Refill Jose [facility] 1.2.840.114 350.1.13.10 4.2.7.2.686 [id number] [facility] 2023-01-08 00:00:00 2023-01-08 00:00:00 OFFICE VISIT ESTAB PT LEVEL 4 STLMLC STLMLC [id number] [facility] 2023-01-06 00:00:00 2023-01-06 00:00:00 (TEL) STLMLC STLMLC [id number] [facility] 2022-12-23 00:00:00 2022-12-23 00:00:00 Refill [facility] 1.2.840.114 350.1.13.10 4.2.7.2.686 [id number] 220 [id number] [facility] 2022-12-23 00:00:00 2022-12-23 00:00:00 (TEL) STLMLC STLMLC [id number] [facility] 2022-11-14 00:00:00 2022-11-14 00:00:00 (TEL) STLMLC STLMLC [id number] [facility] 2022-11-12 11:30:00 2022-11-12 15:15:39 Outpatient R [facility] [id number] [facility] 2022-11-12 11:30:00 2022-11-12 15:15:39 Office Visit Teresa Jose [facility] 1.2.840.114 350.1.13.10 4.2.7.2.686 [id number] 220 [id number] [facility] 2022-11-12 00:00:00 2022-11-12 00:00:00 Orders Only Doctor Unassigned, Rosamond [facility] 1.2.840.114 350.1.13.10 4.2.7.2.686 [id number] [facility] 2022-11-08 00:00:00 2022-11-08 00:00:00 (TEL) STLC STLC [id number] [facility] 2022-10-14 00:00:00 2022-10-14 00:00:00 (TEL) STLC STLC [id number] [facility] 2022-09-02 00:00:00 2022-09-02 00:00:00 (TEL) STLC STLC [id number] [facility] 2022-07-29 00:00:00 2022-07-29 00:00:00 Patient Secure Msg Doctor Unassigned, Rosamond [facility] 1.2.840.114 350.1.13.10 4.2.7.2.686 [id number] [facility] 2022-07-16 00:00:00 2022-07-16 00:00:00 (TEL) STLC STLC [id number] [facility] 2022-07-10 00:00:00 2022-07-10 00:00:00 OFFICE VISIT ESTAB PT LEVEL 4 [facility] [id number] [facility] 2022-07-10 00:00:00 2022-07-10 00:00:00 [facility]AL [facility] [id number] [facility] 2022-05-28 00:00:00 2022-05-28 00:00:00 (TEL) STLMLC STLMLC [id number] [facility] 2022-05-16 15:30:00 2022-05-16 15:45:00 Bioprocess Development Engineer Visit Lab, Navin - Kal [facility] 1..840.114 350.1.13.10 4.2.7.2.686 [id number] [facility] 2022-05-16 15:30:00 2022-05-16 15:30:00 Outpatient R [facility] [id number] [facility] 2022-05-15 00:00:00 2022-05-15 00:00:00 (TEL) STLMLC STLMLC [id number] [facility] 2022-05-14 13:45:00 2022-05-14 14:00:00 Bioprocess Development Engineer Visit Lab, Navin - Kal [facility] 1..840.114 350.1.13.10 4.2.7.2.686 [id number] [facility] 2022-05-14 13:00:00 2022-05-14 13:39:09 Outpatient R [facility] [id number] [facility] 2022-05-14 13:00:00 2022-05-14 13:39:09 Office Visit [facility] 1..840.114 350.1.13.10 4.2.7.2.686 [id number] 220 [id number] [facility] 2022-05-14 00:00:00 2022-05-14 00:00:00 Telephone [facility] 1..840.114 350.1.13.10 4.2.7.2.686 [id number] 220 [id number] [facility] 2022-05-14 00:00:00 2022-05-14 00:00:00 Orders Only Doctor Unassigned, Rosamond [facility] 1.0.114 350.1.13.10 4.2.7.2.686 [id number] [id number] [facility] 2022-04-25 00:00:00 2022-04-25 00:00:00 (TEL) STLMLC STLMLC [id number] [facility] 2022-04-22 00:00:00 2022-04-22 00:00:00 (TEL) STLMLC STLMLC [id number] [facility] 2022-04-11 00:00:00 2022-04-11 00:00:00 OFFICE VISIT ESTAB PT LEVEL 4 STLMLC STLMLC [id number] [facility] 2022-04-09 11:30:00 2022-04-09 11:30:00 Outpatient R [facility] [id number] [facility] 2022-04-08 00:00:00 2022-04-08 00:00:00 Telephone [facility]INIO?[facility] 1..114 350.1.13.10 4.2.7.2.686 [id number] 220 [id number] [facility] 2022-03-27 00:00:00 2022-03-27 00:00:00 Refill [facility] 1.84.114 350.1.13.10 4.2.7.2.686 [id number] 220 [id number] [facility] 2022-03-20 00:00:00 2022-03-20 00:00:00 Refill [facility] 1..114 350.1.13.10 4.2.7.2.686 [id number] 220 [id number] [facility] 2022-03-17 00:00:00 2022-03-17 00:00:00 Refill [facility] 1..840.114 350.1.13.10 4.2.7.2.686 [id number] 220 [id number] [facility] 2022-03-08 00:00:00 2022-03-08 00:00:00 Patient Secure [facility] 1..840.114 350.1.13.10 4.2.7.2.686 [id number] 220 [id number] [facility] 2022-02-20 00:00:00 2022-02-20 00:00:00 (TEL) STLMLC STLMLC [id number] [facility] 2022-02-14 00:00:00 2022-02-14 00:00:00 OFFICE VISIT EST PT LEVEL 3 STLMLC STLMLC [id number] [facility] 2022-01-27 00:00:00 2022-01-27 00:00:00 (WEB) STLMLC STLMLC [id number] [facility] 2022-01-25 00:00:00 2022-01-25 00:00:00 [facility] 1..840.114 350.1.13.10 4.2.7.2.686 [id number] [facility] 2022-01-24 00:00:00 2022-01-24 00:00:00 (WEB) STLMLC STLMLC [id number] [facility] 2022-01-21 00:00:00 2022-01-21 00:00:00 OL DIG E/M SVC 11-20 MIN STLMLC STLMLC [id number] [facility] 2022-01-09 00:00:00 2022-01-09 00:00:00 (TEL) STLMLC STLMLC [id number] [facility] 2021-12-20 00:00:00 2021-12-20 00:00:00 (WEB) STLMLC STLMLC [id number] [facility] 2021-11-26 00:00:00 2021-11-26 00:00:00 Orders Only Doctor Unassigned, Rosamond [facility] 1.2.840.114 350.1.13.10 4.2.7.2.686 [id number] [facility] 2021-11-15 00:00:00 2021-11-15 00:00:00 OFFICE VISIT EST PT LEVEL 3 STLMLC STLMLC [id number] [facility] 2021-10-30 12:00:00 2021-10-30 12:53:55 Outpatient R [facility] [id number] [facility] 2021-10-30 12:00:00 2021-10-30 12:53:55 [facility] 1.2.840.114 350.1.13.10 4.2.7.2.686 [id number] [facility] 2021-10-23 00:00:00 2021-10-23 00:00:00 (TEL) STLMLC STLMLC [id number] [facility] 2021-10-20 00:00:00 2021-10-20 00:00:00 (TEL) STLMLC STLMLC [id number] [facility] 2021-10-18 00:00:00 2021-10-18 00:00:00 OFFICE VISIT EST PT LEVEL 3 STLMLC STLMLC [id number] [facility] 2021-09-13 00:00:00 2021-09-13 00:00:00 OFFICE VISIT EST PT LEVEL 3 STLMLC STLMLC [id number] [facility] 2021-08-31 00:00:00 2021-08-31 00:00:00 (TEL) STLMLC STLMLC [id number] [facility] 2021-08-14 00:00:00 2021-08-14 00:00:00 OFFICE VISIT EST PT LEVEL 3 STLMLC STLMLC [id number] [facility] 2021-08-10 00:00:00 2021-08-10 00:00:00 [facility] 1..840.114 350.1.13.10 4.2.7.2.686 [id number] [facility] 2021-08-08 00:00:00 2021-08-08 00:00:00 (TEL) STLMLC STLMLC [id number] [facility] 2021-08-03 00:00:00 2021-08-03 00:00:00 (TEL) STLMLC STLMLC [id number] [facility] 2021-06-05 00:00:00 2021-06-05 00:00:00 OFFICE VISIT NEW PT LEVEL 4 STLMLC STLMLC [id number] [facility] 2021-05-30 00:00:00 2021-05-30 00:00:00 (TEL) STLMLC STLMLC [id number] [facility] 2021-05-21 14:28:47 2021-05-21 23:59:00 Outpatient R TERESA JOSE [facility] [id number] [facility] 2021-05-21 14:00:00 2021-05-21 23:59:00 Hospital Encounter Teresa Jose [facility] 1..840.114 350.1.13.10 4.2.7.2.686 [id number] [facility] 2021-05-14 00:00:00 2021-05-14 00:00:00 Outpatient S[facility] [id number] [facility] 2021-05-11 00:00:00 2021-05-11 00:00:00 [facility] STLMLC STLMLC [id number] [facility] 2021-05-11 00:00:00 2021-05-11 00:00:00 OFFICE VISIT EST PT LEVEL 3 STLMLC STLMLC [id number] [facility] 2021-05-10 00:00:00 2021-05-10 00:00:00 (TEL) STLMLC STLMLC [id number] [facility] 2021-05-07 14:30:00 2021-05-07 14:30:00 Outpatient Sergio [facility] [id number] [facility] 2021-05-01 11:30:00 2021-05-01 12:27:00 Outpatient Sergio [facility] [id number] [facility] 2021-04-24 10:30:00 2021-04-24 11:00:00 Office Visit [facility] 1.2.840.114 350.1.13.10 4.2.7.2.686 [id number] [facility] 2021-04-24 10:30:00 2021-04-24 10:30:00 Outpatient Sergio [facility] [id number] [facility] 2021-04-09 00:00:00 2021-04-09 00:00:00 (TEL) STLMLC STLMLC [id number] [facility] 2021-04-02 00:00:00 2021-04-02 00:00:00 OFFICE VISIT EST PT LEVEL 3 STLMLC STLMLC [id number] [facility] 2021-03-15 00:00:00 2021-03-15 00:00:00 (TEL) STLMLC STLMLC [id number] [facility] 2021-03-15 00:00:00 2021-03-15 00:00:00 (TEL) STLMLC STLMLC [id number] [facility] 2021-02-14 00:00:00 2021-02-14 00:00:00 (TEL) STLMLC STLMLC [id number] [facility] 2021-02-06 00:00:00 2021-02-06 00:00:00 (TEL) STLMLC STLMLC [id number] [facility] 2021-01-10 00:00:00 2021-01-10 00:00:00 OL DIG E/M SVC 11-20 MIN STLMLC STLMLC [id number] [facility] 2021-01-01 00:00:00 2021-01-01 00:00:00 (INJ) Injection STLMLC STLMLC [id number] [facility] 2021-01-01 00:00:00 2021-01-01 00:00:00 (TEL) STLMLC STLMLC [id number] [facility] 2020-12-27 00:00:00 2020-12-27 00:00:00 (TEL) STLMLC STLMLC [id number] [facility] 2020-12-22 00:00:00 2020-12-22 00:00:00 OFFICE VISIT EST PT LEVEL 3 STLMLC STLMLC [id number] [facility] 2020-12-22 00:00:00 2020-12-22 00:00:00 (TEL) STLMLC STLMLC [id number] [facility] 2020-12-22 00:00:00 2020-12-22 00:00:00 (TEL) STLMLC STLMLC [id number] [facility] 2020-12-13 00:00:00 2020-12-13 00:00:00 OFFICE VISIT ESTAB PT LEVEL 3 STLMLC STLMLC [id number] [facility] 2020-12-01 00:00:00 2020-12-01 00:00:00 (TEL) STLMLC STLMLC [id number] [facility] 2020-10-24 00:00:00 2020-10-24 00:00:00 Outpatient STLMLC STLMLC [id number] [facility] 2020-08-02 00:00:00 2020-08-02 00:00:00 Outpatient STLMLC STLMLC [id number] [facility] 2020-07-05 00:00:00 2020-07-05 00:00:00 Outpatient STLMLC STLMLC [id number] [facility] 2020-06-20 00:00:00 2020-06-20 00:00:00 Outpatient STLMLC STLMLC [id number] [facility] 2020-06-20 00:00:00 2020-06-20 00:00:00 Outpatient STLMLC STLMLC [id number] [facility] 2020-06-15 00:00:00 2020-06-15 00:00:00 Outpatient STLMLC STLMLC [id number] [facility] 2020-06-06 00:00:00 2020-06-06 00:00:00 Outpatient STLMLC STLMLC [id number] [facility] 2020-06-05 00:00:00 2020-06-05 00:00:00 Outpatient STLMLC STLMLC [id number] [facility] 2020-05-29 00:00:00 2020-05-29 00:00:00 Outpatient STLMLC STLMLC [id number] [facility] 2020-05-09 00:00:00 2020-05-09 00:00:00 Outpatient STLMLC STLMLC [id number] [facility] 2020-05-05 00:00:00 2020-05-05 00:00:00 Outpatient STLMLC STLMLC [id number] [facility] 2020-04-19 00:00:00 2020-04-19 00:00:00 Outpatient STLMLC STLMLC [id number] [facility] 2020-04-07 00:00:00 2020-04-07 00:00:00 Outpatient STLMLC STLMLC [id number] [facility] 2020-03-28 00:00:00 2020-03-28 00:00:00 Outpatient STLMLC STLMLC [id number] [facility] 2020-02-24 00:00:00 2020-02-24 00:00:00 Outpatient STLMLC STLMLC [id number] [facility] 2020-02-22 00:00:00 2020-02-22 00:00:00 Outpatient STLMLC STLMLC [id number] [facility] 2020-01-14 00:00:00 2020-01-14 00:00:00 Outpatient STLMLC STLMLC [id number] [facility] 2019-11-23 11:00:00 2019-11-23 11:00:[address] [facility] [id number] [facility] 2019-11-16 09:52:00 2019-11-16 09:52:[address] [facility] [id number] [facility] 2019-08-30 08:49:00 2019-08-30 08:49:[address] [facility] [id number] [facility] 2019-08-18 09:40:00 2019-08-18 09:40:[address] [facility] [id number] [facility] 2019-08-10 14:31:00 2019-08-10 14:31:00 [facility] [id number] [facility] 2019-08-07 07:31:00 2019-08-07 07:31:[address] [facility] [facility] [id number] [facility] 2019-08-06 09:20:00 2019-08-06 09:20:00 [facility] [id number] [facility] 2019-04-30 16:02:00 2019-04-30 16:02:00 [facility] [id number] [facility] 2019-04-15 10:26:00 2019-04-15 10:26:00 [facility] [id number] [facility] 2019-04-12 09:27:00 2019-04-12 09:27:00 [facility] [id number] [facility] 2019-04-02 08:40:00 2019-04-02 08:40:00 [facility] [id number] [facility] 2019-04-01 11:20:00 2019-04-01 11:20:00 Outpatient [facility] [id number] [facility] Results Test Description Test Time Test Comments Results Result Co mments Source igp, apt HPV,rfx 16/18,[id number] 00:00:00* Test Item Value Reference Range Interpretation Comme nts diagnosis: (test code = diagnosis:) COMMENT specimen adequacy: (test cod e = specimen adequacy:) COMMENT performed by: (test code = p erformed by:) COMMENT note: (test code = note:) COMMENT test methodology: (test code = test methodology:) COMMENT HPV aptima (test code = HPV aptima) NEGATIVE negative [facility] [id number] 00:00:00* Test Item Value Reference Range Interpretation Comme nts A1C (test code = 4548-4) 8.1 REFLEXED [id number] 00:00:00* Test Item Value Reference Range Interpretation Comme nts NUCLEATED RBCS (test code = 74710-7) 0.0 /100 WBC'S See_Comment [Automated message] The system which generated this result transmitted reference range: 0.0 /100 WBC'S. The reference range was not used to interpret this result as normal/abnormal. ABSOLUTE EOSINOPHILS (test code = 47082-2) 0.06 K/UL See_Comment [Automated message] The system which generated this result transmitted reference range: 0.00-0.50 K/UL. The reference range was not used to interpret this result as normal/abnormal. ABSOLUTE LYMPHOCYTES (test code = 25644-9) 1.19 K/UL See_Comment [Automated message] The system which generated this result transmitted reference range: 1.00-4.00 K/UL. The reference range was not used to interpret this result as normal/abnormal. ABSOLUTE MONOCYTES (test code = 23657-2) 0.37 K/UL See_Comment [Automated message] The system which generated this result transmitted reference range: 0.20-1.00 K/UL. The reference range was not used to interpret this result as normal/abnormal. ABSOLUTE NEUTROPHILS (test code = 93264-6) 10.19 K/UL See_Comment H [Automated message] The system which generated this result transmitted reference range: 1.50-7.50 K/UL. The reference range was not used to interpret this result as normal/abnormal. BASOPHILS (test code = 48324-4) 0.4 % EOSINOPHILS (test code = 99142-5) 0.5 % HEMATOCRIT (test code = 47878-6) 42.0 % See_Comment [Automated messa ge] The [...] result as normal/abnormal. LYMPHOCYTES (test code = 96092-2) 10.0 % MCH (test code = 56054-1) 30.7 PG See_Comment [Automated messa ge] The system which generated this result transmitted reference range: 25.0-33.0 PG. The reference range was not used to interpret this result as normal/abnormal. MCHC (test code = 53276-5) 32.4 G/DL See_Comment [Automated messa ge] The system which generated this result transmitted reference range: 31.0-36.0 G/DL. The reference range was not used to interpret this result as normal/abnormal. MCV (test code = 11998-9) 94.8 fL See_Comment [Automated messa ge] The system which generated this result transmitted reference range: 80.0-99.0 fL. The reference range was not used to interpret this result as normal/abnormal. MONOCYTES (test code = 48974-8) 3.1 % NEUTROPHILS (test code = 60968-0) 85.7 % PLATELET COUNT (test code = 38954-8) 265 K/UL See_Comment [Automated messa ge] The system which generated this result transmitted reference range: 130-400 K/UL. The reference range was not used to interpret this result as normal/abnormal. RBC (test code = 89941-9) 4.43 M/UL See_Comment [Automated messa ge] The system which generated this result transmitted reference range: 3.80-5.40 M/UL. The reference range was not used to interpret this result as normal/abnormal. RDW (test code = 97555-8) 12.8 % See_Comment [Automated messa ge] The system which generated this result transmitted reference range: 11.5-15.0 %. The reference range was not used to interpret this result as normal/abnormal. WBC (test code = 75197-6) 11.9 K/UL See_Comment H [Automated messa ge] [...] normal/abnormal. CALC LDL CHOL (test code = 44570-4) (NOTE) MG/DL See_Comment [Automated messa ge] The [...] normal/abnormal. RISK RATIO LDL/HDL (test code = 49761-9) (NOTE) RATIO See_Comment [Automated message] The system [...] normal/abnormal. TSH, THIRD GENERATION (test code = 00505-3) 3.440 UIU/ML See_Comment [Automated message] The system which generated this result transmitted reference range: 0.400-4.100 UIU/ML. The reference range was not used to interpret this result as normal/abnormal. ALBUMIN, URINE, RANDOM (test code = 55812-6) 8.1 MG/DL NOT ESTAB MG/DL CALC ALBUMIN/CREAT, RND (test code = 42965-4) 321 MG/G See_Comment H [Automated messa ge] [...] result as normal/abnormal. CALCIUM (test code = 84332-0) 10.4 MG/DL See_Comment [Automated messa ge] The [...] as normal/abnormal. CALC GLOBULIN (test code = 61353-4) 2.6 G/DL See_Comment [Automated messa ge] The [...] normal/abnormal. eGFR (2020 CKD-EPI) (test code = 08426-2) 86 ML/MIN/1.73 See_Comment [Automated message] The system which generated this result transmitted reference range: >60 ML/MIN/1.73. The reference range was not used to interpret this result as normal/abnormal. GLUCOSE (test code = 1558-6) 623 MG/DL See_Comment HH [Automated [employer] ge] The system which generated this result transmitted reference range: 70-99 MG/DL. The reference range was not used to interpret this result as normal/abnormal. POTASSIUM (test code = 2823-3) 4.1 MEQ/L See_Comment [Automated [employer] ge] The system which generated this result transmitted reference range: 3.5-5.4 MEQ/L. The reference range was not used to interpret this result as normal/abnormal. PROTEIN, TOTAL (test code = 2885-2) 6.7 G/DL See_Comment [Automated [employer]] The system which generated this result transmitted reference range: 6.1-8.3 G/DL. The reference range was not used to interpret this result as normal/abnormal. AST (test code = 1920-8) 31 U/L See_Comment [Automated [employer] ge] The system which generated this result transmitted reference range: 9-40 U/L. The reference range was not used to interpret this result as normal/abnormal. ALT (test code = 1742-6) 43 U/L See_Comment H [Automated [employer] ge] The system which generated this result transmitted reference range: 5-40 U/L. The reference range was not used to interpret this result as normal/abnormal. SODIUM (test code = 2951-2) 135 MEQ/L See_Comment [Automated [employer] ge] The system which generated this result transmitted reference range: 133-146 MEQ/L. The reference range was not used to interpret this result as normal/abnormal. infectious disease [id number] 00:00:00* Test Item Value Reference Range Interpretation [...] code = trichomonas vaginalis) 0.000 ppm 23.000-32.119 [facility] Hemoglobin A1C [id number] 19:14:00* Test Item Value Reference Range Interpretation Comme nts POCT HBA1C (test code = 4548-4) 7.8 % 4-6 A Lab Interpretation (test cod e = 93890-7) Abnormal [facility] ([facility])2023-11-03 18:48:45 Ordered by an unspecified provider.[facility]O [id number] 00:00:00* Test Item Value Reference Range Interpretation Comme nts NUCLEATED RBCS (test code = 19873-5) 0.0 /100 WBC'S See_Comment [Automated messa ge] The system which generated this result transmitted reference range: 0.0 /100 WBC'S. The reference range was not used to interpret this result as normal/abnormal. ABSOLUTE EOSINOPHILS (test code = 08079-2) 0.21 K/UL See_Comment [Automated messa ge] The system which generated this result transmitted reference range: 0.00-0.50 K/UL. The reference range was not used to interpret this result as normal/abnormal. ABSOLUTE LYMPHOCYTES (test code = 30837-0) 1.70 K/UL See_Comment [Automated messa ge] The system which generated this result transmitted reference range: 1.00-4.00 K/UL. The reference range was not used to interpret this result as normal/abnormal. ABSOLUTE MONOCYTES (test code = 22157-4) 0.45 K/UL See_Comment [Automated messa ge] The system which generated this result transmitted reference range: 0.20-1.00 K/UL. The reference range was not used to interpret this result as normal/abnormal. ABSOLUTE NEUTROPHILS (test code = 01049-0) 5.42 K/UL See_Comment [Automated messa ge] The system which generated this result transmitted reference range: 1.50-7.50 K/UL. The reference range was not used to interpret this result as normal/abnormal. BASOPHILS (test code = 60768-0) 0.6 % EOSINOPHILS (test code = 82267-8) 2.7 % HEMATOCRIT (test code = 59326-2) 39.2 % See_Comment [Automated messa ge] The [...] result as normal/abnormal. LYMPHOCYTES (test code = 25246-9) 21.7 % MCH (test code = 64758-0) 30.0 PG See_Comment [Automated messa ge] The system which generated this result transmitted reference range: 25.0-33.0 PG. The reference range was not used to interpret this result as normal/abnormal. MCHC (test code = 83651-3) 32.4 G/DL See_Comment [Automated messa ge] The system which generated this result transmitted reference range: 31.0-36.0 G/DL. The reference range was not used to interpret this result as normal/abnormal. MCV (test code = 57123-8) 92.7 fL See_Comment [Automated messa ge] The system which generated this result transmitted reference range: 80.0-99.0 fL. The reference range was not used to interpret this result as normal/abnormal. MONOCYTES (test code = 70615-4) 5.7 % NEUTROPHILS (test code = 93328-1) 69.0 % PLATELET COUNT (test code = 75991-4) 259 K/UL See_Comment [Automated messa ge] The system which generated this result transmitted reference range: 130-400 K/UL. The reference range was not used to interpret this result as normal/abnormal. RBC (test code = 91408-5) 4.23 M/UL See_Comment [Automated messa ge] The system which generated this result transmitted reference range: 3.80-5.40 M/UL. The reference range was not used to interpret this result as normal/abnormal. RDW (test code = 79204-3) 14.0 % See_Comment [Automated messa ge] The system which generated this result transmitted reference range: 11.5-15.0 %. The reference range was not used to interpret this result as normal/abnormal. WBC (test code = 23339-7) 7.9 K/UL See_Comment [Automated messa ge] The system which generated this result transmitted reference range: 3.5-11.0 K/UL. The reference range was not used to interpret this result as normal/abnormal. REFERRAL- REQUEST/[id number] 13:13:39Ordered by an unspecified provider. [facility]OMEN W WO [id number] 18:42:07 ORDERING PHYSICIAN: TERESA JOSE CLINICAL HISTORY: [...] in the pelvis. There is no compression fracture.[facility] [id number] 16:47:14* Test Item Value Reference Range Interpretation Comme [facility] POCT Creatinine (test code = 1824611015) 0.6 mg/dL 0.5-1.1 Lab Interpretation (test cod e = 75621-1) Normal [facility]- REQUEST/[id number] 15:44:52 Ordered by an unspecified provider.[facility] Hemoglobin A1C [id number] 20:35:00* Test Item Value Reference Range Interpretation Comme [facility] POCT HBA1C (test code = 4548-4) 7.9 % 4-6 A Lab Interpretation (test cod e = 78415-6) Abnormal [facility] Hem[facility] A1C [id number] 20:35:00* Test Item Value Reference Range Interpretation Comme [facility] POCT HBA1C (test code = 4548-4) 7.9 % 4-6 A Lab Interpretation (test cod e = 64479-5) Abnormal [facility] HospitalHEMOGLOBIN [id number] 00:00:00* Test Item Value Reference Range Interpretation Comme [facility] A1C (test code = 4548-4) 9.1 CBC W/AUTO [id number] 00:00:00* Test Item Value Reference Range Interpretation Comme [facility] NUCLEATED RBCS (test code = 93439-2) 0.0 /100 WBC'S See_Comment [Automated messa ge] The system which generated this result transmitted reference range: 0.0 /100 WBC'S. The reference range was not used to interpret this result as normal/abnormal. ABSOLUTE EOSINOPHILS (test code = 59037-0) 0.11 K/UL See_Comment [Automated messa ge] The system which generated this result transmitted reference range: 0.00-0.50 K/UL. The reference range was not used to interpret this result as normal/abnormal. ABSOLUTE LYMPHOCYTES (test code = 22160-0) 1.65 K/UL See_Comment [Automated messa ge] The system which generated this result transmitted reference range: 1.00-4.00 K/UL. The reference range was not used to interpret this result as normal/abnormal. ABSOLUTE MONOCYTES (test code = 69036-4) 0.47 K/UL See_Comment [Automated messa ge] The system which generated this result transmitted reference range: 0.20-1.00 K/UL. The reference range was not used to interpret this result as normal/abnormal. ABSOLUTE NEUTROPHILS (test code = 88317-3) 4.11 K/UL See_Comment [Automated messa ge] The system which generated this result transmitted reference range: 1.50-7.50 K/UL. The reference range was not used to interpret this result as normal/abnormal. BASOPHILS (test code = 36862-0) 0.6 % EOSINOPHILS (test code = 00047-6) 1.7 % HEMATOCRIT (test code = 93566-7) 37.9 % See_Comment [Automated messa ge] The [...] result as normal/abnormal. LYMPHOCYTES (test code = 06501-4) 25.8 % MCH (test code = 18437-9) 31.1 PG See_Comment [Automated messa ge] The system which generated this result transmitted reference range: 25.0-33.0 PG. The reference range was not used to interpret this result as normal/abnormal. MCHC (test code = 04214-4) 34.8 G/DL See_Comment [Automated messa ge] The system which generated this result transmitted reference range: 31.0-36.0 G/DL. The reference range was not used to interpret this result as normal/abnormal. MCV (test code = 95341-5) 89.2 fL See_Comment [Automated messa ge] The system which generated this result transmitted reference range: 80.0-99.0 fL. The reference range was not used to interpret this result as normal/abnormal. MONOCYTES (test code = 56586-3) 7.3 % NEUTROPHILS (test code = 91007-9) 64.3 % PLATELET COUNT (test code = 01434-9) 230 K/UL See_Comment [Automated messa ge] The system which generated this result transmitted reference range: 130-400 K/UL. The reference range was not used to interpret this result as normal/abnormal. RBC (test code = 40663-3) 4.25 M/UL See_Comment [Automated messa ge] The system which generated this result transmitted reference range: 3.80-5.40 M/UL. The reference range was not used to interpret this result as normal/abnormal. RDW (test code = 23195-4) 13.4 % See_Comment [Automated messa ge] The system which generated this result transmitted reference range: 11.5-15.0 %. The reference range was not used to interpret this result as normal/abnormal. WBC (test code = 84311-3) 6.4 K/UL See_Comment [Automated [employer]] The system which generated this result transmitted reference range: 3.5-11.0 K/UL. The reference range was not used to interpret this result as normal/abnormal. Lipid Panel w/ Chol/HDL [id number] 00:00:00* Test Item Value Reference Range Interpretation Comme nts Cholesterol, Total (test code = 2093-3) 128 mg/dL See_Comment [Automated message] The system which generated this result transmitted reference range: 100-199 mg/dL. The reference range was not used to interpret this result as normal/abnormal. Triglycerides (test code = 2571-8) 159 mg/dL See_Comment H [Automated [employer]] The system which generated this result transmitted reference range: 0-149 mg/dL. The reference range was not used to interpret this result as normal/abnormal. HDL Cholesterol (test code = 2085-9) 42 mg/dL See_Comment [Automated [employer]] The system which generated this result transmitted reference range: >39 mg/dL. The reference range was not used to interpret this result as normal/abnormal. T. Chol/HDL Ratio (test code = 9830-1) 3.0 ratio See_Comment [Automated [employer]] The system which generated this result transmitted reference range: 0.0-4.4 ratio. The reference range was not used to interpret this result as normal/abnormal. Microalbumin/Creat Ratio, Random [id number] 00:00:00* Test Item Value Reference Range Interpretation Comme nts Creatinine, Urine (test code = 2161-8) 168.8 mg/dL Not Estab. mg/dL Albumin, Urine (test code = 82804-4) 516.8 ug/mL Not Estab. ug/mL Alb/Creat Ratio (test code = 32266-7) 306 mg/g creat See_Comment H [Automated [employer]] The system which generated this result transmitted reference range: 0-29 mg/g creat. The reference range was not used to interpret this result as normal/abnormal. - XR FLUORO FOR SPINE [id number] 14:34:00 [facility] : 1965 Sex: F FAX: Luis Eisenberg MD [phone] [place]: St: REG Patient Name: BRANDEE JOSÉ Unit No: [id number] EXAMS: CPT CODE: [id number] XR FLUORO FOR SPINE INJ 53417 Location: T 18 INDICATION: ONELIA IMPRESSION: 12 seconds of intraoperative fluoroscopy provided for lumbar ONELIA. I was not present for or involved with the procedure or provided fluoroscopy. Please refer to the procedure note for details. Radiation dose 7 mGy (PSD). at 1434 Reported and signed by: Santino Golden M.D. CC: Luis Porter MD Dictated Date/Time: 04/11/2020 (8029)Technologist: Maurizio Perla Transcribed Date/Time: 04/11/2020 (1434) By: [email or web address] Orig Print D/T: S: 04/11/2020 (1297) [facility] [place] NAME: BRANDEE JOSÉ [facility] PHYS: Luis Mora MD [address] [place] [address] : 1965 AGE: 54 SEX: SARAH [place] [phone] [facility] #: [phone] EXAM DATE: 04/11/2020 [place]US: [place] [facility] [place] #: [phone] RAD NO: DC Dt: PAGE 1 Signed ReportGLUCOSE BEDSIDE [id number] 11:35:00* Test Item Value Reference Range Interpretation Comme nts GLUCOSE BEDSIDE TESTING (isrrael t code = GLUBED) 189 MG/DL 70-119 H COVID Asymptomatic IH [id number] 12:52:00* Test Item Value Reference Range Interpretation [...] results. This test was performed using the [employer] SmartTM COVID-19 PCRassay. This test was developed and its performancecharacteristics were determined by [facility]. This test has notbeen FDA cleared or [...] setting? No? NoAge at collection: YHCG SERUM [id number] 12:55:00* Test Item Value Reference Range Interpretation [...] NORMAL <50 MG Index/DL 1 NORMAL HGB [id number] 12:38:00* Test Item Value Reference Range Interpretation Comme nts RED BLOOD CELL (test code = RBC) 4.52 M/mm3 3.8-5.5 N HEMOGLOBIN (test code = HGB) 13.4 G/DL 10.6-15.8 N HEMATOCRIT (test code = HCT) 42.3 % 31.8-47.4 N MEAN CELL VOLUME (test code = MCV) 93.6 fL 80.1-101.1 N - XR CHEST 2 [id number] 12:21:00 [facility] : 1965 Sex: F FAX: Luis Eisenberg MD [phone] [place]: St: PRE Patient Name: BRANDEE JOSÉ Unit No: [id number] EXAMS: CPT CODE:[id number] XR CHEST 2 V 40948 Site ID: [id number] HISTORY: Preoperative FINDINGS: The lungs are clear and normally expanded. The heart and pulmonary vasculature is normal. Osseous structures are unremarkable. IMPRESSION: Normal preoperative chest x-ray at 1221 Reported and signed by: Santino Golden M.D. CC: Luis Porter MD Dictated Date/Time: 04/06/2020 (7417)Technologist: Smith Benton Transcribed Date/Time: 04/06/2020 (7900) By: [email or web address] Orig Print D/T: S: 04/06/2020 (0657) [facility] NAME: BRANDEE JOSÉ [address] [place] [address] PHYS: Luis Mora MD [place], [place] : 1965 AGE: 54 SEX: F [id number] LOC: SHADI PHONE #: [phone] EXAM DATE: 04/06/2020 [place]US: [place] [facility] [place] #: [phone] RAD NO: DC Dt: PAGE 1 Signed ReportGLUCOSE BEDSIDE [id number] 07:49:00* Test Item Value Reference Range Interpretation Comme nts GLUCOSE BEDSIDE TESTING (isrrael t code = GLUBED) 141 MG/DL 70-119 H Novel Coronavirus 2019 Pxrluva2931-06-02 18:08:00* Test Item Value Reference Range Interpretation [...] SARS-CoV-2 virusand/or diagnosis of COVID-19 infection under (b)(1) of the Act, 21 U.S.C. 360bbb-3(b) (1), [...] detected) result in this assay.Performed At: [facility] [address] [id number] Sam Gillis MD Ph:[phone] UR HCG [id number] 16:55:00* Test Item Value Reference Range Interpretation Comme nts UR HCG QUAL (test code = HCGQLU) NEGATIVE NEG Very dilute urin es with a low specific gravity may notcontain agency sales representative levels of hCG. - XR CHEST 2 [id number] 16:55:00 [facility] : 1965 Sex: F FAX: Luis Eisenberg MD [phone] [place]: O St: PRE Patient Name: BRANDEE JOSÉ Unit No: [id number] EXAMS: CPT CODE: [id number] XR CHEST 2 V 48574 - XR CHEST 2 V LOCATION: T18 [...] MEDICAL IMAGING DEPARTMENT PHYS: Luis Mora MD [address] [place] [address] : 1965 AGE: 54 SEX: Diana [place], [place] [address] [facility] [id number] LOC: SHADI PHONE #: [phone] EXAM DATE: 03/01/2020 STATUS: PRE [facility] FAX #: [phone] RAD NO: DCDt: PAGE 1 Signed ReportCOMPREHENSIVE METABOLIC [id number] 16:39:00* Test Item Value Reference Range Interpretation [...] <50 MG Index/DL 1 NORMAL COMPREHENSIVE METABOLIC [id number] 16:34:00* Test Item Value Reference Range Interpretation [...] NORMAL <50 MG Index/DL 1 NORMAL HGB [id number] 16:22:00* Test Item Value Reference Range Interpretation [...] Faxed 09/03/23 OV note and EKG to [facility] [phone]. Pending confirmation. Kendra Appiah Snyder [facility] 2024-09-23 11:28:58 MICAELA: 09/03/23 NOV: no upcoming appt Fax received from [facility] requesting clearance for pt's upcoming procedure- Edouard Zack Osteotomy, Left Foot. Surgery is not scheduled yet, pending clearance. Placed in MD folder for review. Kendra Snyder [facility] 2024-08-23 08:00:14 Refill has been sent to pharmacy on file. Future Appointments Date Type Provider Dept 10/25/24 Appointment Emeli Dove MD [facility] Endocrinology Showing future appointments within next 150 days with a meds authorizing provider and meeting all other requirements Shira Alicea RN [facility] 2024-08-20 15:45:12 >> Aug 20, 2024 3:44 PM Patient Irrigation Specialist wrote: Brandee Levin José (59 year old female) is calling to request refill(s) for METFORMIN ER 750 mg 24 hr tablet. Pt is out of medication Please send medication(s) to: [facility] - [place], [place] - [address] [facility] [address] Thank you! [facility] 2024-08-09 16:21:08 Pt was rescheduled she with Ali, mentioned she wanted a provider who could stay in the loop and did not want to be OB or waitlisted so she choose first available. Please close TE. Shahana Herbert [facility] 2024-08-09 16:07:06 Pt is needing to schedule a rescheduled appointment due to provider not able to see her and said she would like to be seen for history of high glucose readings but no issues today per pt. Pt is willing to see any other pcp if available. I did attempt to schedule but no openings and also called clinic and [facility] staff had no overbooking access. Theresa Camilo [facility] 2024-06-03 11:17:58 Due for refill 06/17- refill sent in to be refilled 06/17 Shira Alicea RN [facility] 2024-05-12 16:16:01 Pt Toujeo insulin has been adjusted to 50u daily instead of 100U daily due to lows Pt mounjaro also adjusted from 10mg to 15mg weekly A1C is 6.3 05/12/2024 Routed to provider as GINO [facility] 2024-05-12 15:52:56 Dr. Gonzalez's office is requesting to speak to a nurse regarding the pt's medications. Please advise Ofelia [phone] D ENGINEER Vicki Nash [facility]2025-01-23 14:29:06 Refill has been sent to pharmacy on file. Future Appointments Date Type Provider Dept 07/13/24 Appointment Teresa Jose MD [facility] Showing future appointments within next 150 days with a meds authorizing provider and meeting all other requirements D ENGINEER [facility]xf[facility]93-[facility] 08:15:22 Refill has been sent to pharmacy [...] authorizing provider and meeting all other requirements [facility] ClaytonYbhkcl3358-05-32 14:00:00 Images from the original note were not included. Venipuncture collection performed by clean technique on the right anticubitus. Total of 1 attempts were made. Slight pressure and a bandage/dressing were applied to the site(s). The patient experienced no complications. The following specimens were processed according to instructions and sent to [facility] laboratories per lab order on today: LT BLUE SST 1 RED LAV PPT DK GREEN (LiHep) DK GREEN (SodH) ISABEL DK BLUE (K2) DK BLUE (S) ACD Blood Culture NIPT/NTD [facility]2024-10-21 08:09:42 Refill has been sent to pharmacy on file. Future Appointments Date Type Provider Dept 01/13/24 Appointment Teresa Jose MD [facility] Showing future appointments within next 150 days with a meds authorizing provider and meeting all other requirements Shira Alicea [place] [address]-10-07 10:50:00 Refill has been sent to pharmacy on file. Date Type Provider Dept 01/13/24 Appointment Teresa Jose MD [facility] Showing future appointments within next 150 days with a meds authorizing provider and meeting all other requirements Shira Alicea [place] [address]-09-30 10:53:08 Refill has been sent to pharmacy on file. Future Appointments Date Type Provider Dept 01/13/24 Appointment Teresa Jose MD [facility] Showing future appointments within next 150 days with a meds authorizing provider and meeting all other requirements Shira Alicea [place] 139084-08-15 09:58:01 Attempted to call pt to update her. Left VM to check [facility] message. Ngozi Reddy [place] 452894-08-13 22:35:07 Sent 30 days refill for levothyroxine 75mcg. Patient need to complete thyroid lab for further refills. Her last thyroid lab was in 2021 Teresa Jose MD Division of Endocrinology and Metabolism [facility] HospitalDwlxqi7933-87-03 15:50:49 Mychart message sent. Kend[facility] Lo [facility]j3740-[facility]-72 13:17:55 Please review and sign if appropriate: Last office visit: 07/08/23 Next office visit: 01/13/24 Requested Prescriptions Pending Prescriptions Disp Refills levothyroxine 75 mcg tablet Sig: Take 1 tablet by mouth every morning. Signed Prescriptions Disp Refills Insulin [place], Disposable, (DROPLET PEN NEEDLE) 32 gauge x 5/32" Ndle 100 Each 3 Sig: inject 1 Each under the skin in the morning. Authorizing Provider: TERESA JOSE Ordering User: ANGELIC YOUNG LVN hypothyroidism Status: controlled Reviewed 10/15/21 TSH=3.1 01/22/22 TSH=3.8 Free T4=1.6 Plan Continue Levothyroxine 75mcg daily Notes: Pen needles sent to selected pharmacy [place] [address]-08-12 18:04:46 Rx for needles was sent Please update with patient Her CT scan showed adrenal adenoma was stable All adrenal hormone tests was also normal Teresa Jose MD Division of Endocrinology and Metabolism [place] [address]-08-12 15:43:59 Please review and sign if appropriate: *New request Last office visit: 07/08/23 Next office visit: 01/13/24 Requested Prescriptions Pending Prescriptions Disp Refills Insulin [place], Disposable, (DROPLET PEN NEEDLE) 32 gauge x 5/32" Ndle [Pharmacy Med Name: DROPLET PEN NDL 32G 5/32 IN (4MM)] 0 Notes: Uncontrolled type 2 diabetes mellitus with hyperglycemia - [facility]24-08[facility]12 14:58:33 Brandee José is a 58 year old female is calling stating she is needing refills for the needles for Trulicity and Levothyroxine 75mcg. Please advise agustina, pt has been out for a whole week. [facility] [address] [place] [id number] [facility] CenterEjwmlx0717-76-97 10:53:07 Patient notified of results. They verbalized understanding of results/recommendations via teach back. No further questions or concerns at this time. T Kacy Fontenot [facility]NK[facility] HospitalYtlvar2071-92-96 12:00:00 Images from the original note were not included. Venipuncture collection performed by clean technique on the right anticubitus. Total of 3 attempts were made. Slight pressure and a bandage/dressing were applied to the site(s). The patient experienced no complications. The following specimens were processed according to instructions and sent to [facility] laboratories per lab order on 07/29/2023 : LT BLUE SST 4 RED LAV 3 PPT DK GREEN (LiHep) DK GREEN (SodH) ISABEL DK BLUE (K2) DK BLUE (S) ACD Blood Culture NIPT/NTD Patient has been identified by and name and was provided with cup, antiseptic towelette, and clean catch instructions. 1 urine specimen(s) sent. Unpreserved 1 Urine Culture Aptima tube Other urine [id number] 12:11:49 resending [id number] 14:18:12 Brandee José is a 58 year old female Patient is requesting another prescription for dexAMETHasone 1 mg tablet be completed. She states she was unaware she needed to have labs drawn prior to 10am after taking medication. Please contact when available [facility] [address] [place] [id number] Maria Luisa BryantRoger [place] [id number] 12:45:00 Patient advised of test requirements for needing morning specimen- states she will come back for blood draw another day. Jael De SantiagoRoger [place] [id number] 08:56:46 MICAELA 11/12/2022 NOV 08/26/2023 toujeo 100u daily Kendra Donaldson MA 04/16/2023 9:02 AM [facility]2024-01-31 16:49:07 Discussed concerns with patient regarding knee [...] checked out to rule out a DVT. [facility]2024-01-31 16:40:03 Brandee José is a 57 year old female Pt calling in stating her left knee is swollen and she has pain. Pt states her right knee is starting to swell also. Pt is requesting a call back from nurse. Please advise D ENGINEER Astrid [facility] [id number] 08:32:14 Last Appt :11/12/2022 Next APPT :08/26/2023 Continue metformin 750 mg bid Kendra Donaldson MA 03/19/2023 8:34 AM [facility]2021-02-02 13:28:[id number] [place] [address] PATIENT NAME: BRANDEE JOSÉ ADMIT DATE: 04/11/20 ACCOUNT NO: [id number] ROOM NO: AGE: 54 REPORT TYPE: REPORT OF OPERATION SEX: F ADMITTING PHYSICIAN: ATTENDING PHYSICIAN:Luis Porter MD OPERATION DATE: 04/11/2020 PREOPERATIVE DIAGNOSES: L5-S1 herniated nucleus pulposus and left leg lumbar radicular syndrome. POSTOPERATIVE DIAGNOSES: L5-S1 herniated nucleus pulposus and left leg lumbar radicular syndrome. PROCEDURE: L5-S1 interlaminar epidural steroid injection with C-arm fluoroscopic guidance. SURGEON: Luis Porter MD INSPECTOR AND UNLOADER: Rachael Arcos, licensed first press operator. ANESTHESIA: General endotracheal anesthesia. ESTIMATED BLOOD LOSS: [...] By: Luis Porter MD WT: OP:GIANLUCA/DOROTHEA/MAURO Conf#: [id number]/DID#: [id number] Authenticated by Luis Porter MD On 04/17/2020 04:29:47 PM at 1630 PATIENT NAME: BRANDEE JOSÉ 13:15:00 [facility]) Brief Op Note REPORT#:[id number] REPORT STATUS: Signed DATE:04/11/20 TIME: 1315 PATIENT: BRANDEE JOSÉ UNIT #: [id number] ROOM/BED: : 67 AGE: 54 SEX: F ATTEND: Luis Porter MD ADM AUTHOR: Luis Porter MD * ALL edits or amendments must be made on the electronic/computer document * Op/Inv Proc Note - Brief Pre-procedure diagnosis: L5-S1 HNP and lumbar radiculopathy Post-procedure diagnosis: same as pre procedure dx Procedures performed: L5-S1 interlaminar epidural steroid injection with fluoroscopic guidance Primary Surgeon: Luis Porter MD Seating Captain(s): none Findings: As above Complications: none Estimated blood loss in ml's: none Specimens removed/altered: none at 1316 RPT #:[id number] END OF [id number]:12:[id number] [place] [address] PATIENT NAME: BRANDEE JOSÉ ADMIT DATE: ACCOUNT NO: [id number] ROOM NO: AGE: 54 REPORT TYPE: ELECTROCARDIOGRAM SEX: F ADMITTING PHYSICIAN: ATTENDING PHYSICIAN:Luis Porter MD Order: [id number] Test Reason : PREOP Test Date/Time Stamp: [...] significant change was found Confirmed by NED ELILS MD ([id number]) on 04/06/2020 2:53:56 PM Referred By: Luis Porter Confirmed by:NED ELLIS MD at 1454 PATIENT NAME: BRANDEE JOSÉ 08:41:00 [id number] [place] [address] PATIENT NAME: BRANDEE JOSÉ ADMIT DATE: 03/07/20 ACCOUNT NO: [id number] ROOM NO: AGE: 54 REPORT TYPE: REPORT OF OPERATION SEX: F ADMITTING PHYSICIAN: ATTENDING PHYSICIAN:Luis Porter MD OPERATION DATE: PREOPERATIVE DIAGNOSES: Lumbar spinal stenosis and lumbar radicular syndrome. POSTOPERATIVE DIAGNOSES: Lumbar spinal stenosis and lumbar radicular syndrome. PROCEDURE: L5-S1 interlaminar epidural steroid injection with C-arm fluoroscopic guidance. SURGEON: Luis Porter MD INSPECTOR AND UNLOADER: None. ANESTHESIA: Local with IV sedation. ESTIMATED [...] By: Luis Porter MD WT: OP:GIANLUCA/DOROTHEA/MAURO Conf#: [id number]/DID#: [id number] Authenticated by Luis Porter MD On 03/16/2020 03:01:09 PM at 1501 PATIENT NAME: BRANDEE JOSÉ 08:36:00 [facility] Brief Op Note REPORT#:[id number] REPORT STATUS: Signed DATE:03/07/20 TIME: 08 PATIENT: BRANDEE JOSÉ UNIT #: [id number] ROOM/BED: : 67 AGE: 54 SEX: F [...] fluoroscopic guidance Primary Surgeon: Luis Porter MD Seating Captain(s): none Findings: as above Complications: none Estimated blood loss in ml's: none Specimens removed/altered: none at 0837 RPT #:[id number] END OF [id number] 16:01:[id number] [place] [address] PATIENT NAME: BRANDEE JOSÉ ADMIT DATE: ACCOUNT NO: [id number] ROOM NO: AGE: 54 REPORT TYPE: ELECTROCARDIOGRAM SEX: F ADMITTING PHYSICIAN: ATTENDING PHYSICIAN:Luis Porter MD Order: [id number] Test Reason : >50YO Test Date/Time Stamp: [...]
[2024-10-24 16:44] LABS: Absolute Lymphocytes (CBC) 1.2 K/uL (0.7-4.9); Hematocrit 43.6 % (36.0-45.0); Hemoglobin 14.9 g/dL (12.0-15.0); MCH 30.3 pg (27.0-35.0); MCHC 34.2 g/dL (32.0-36.0); MCV 88.7 fL (80-100); MPV 9.4 fL (7.6-11.3); Nucleated RBC Absolute Count 0.0 (0-0); Nucleated Red Blood Cells % 0.0 % (0-0); RBC Red Blood Cell Count 4.91 M/uL (3.86-4.86); White Blood Count 15.60 thou/uL (4.3-10.9)
[2024-10-24 16:55] LABS: PT Prothrombin Time 14.1 SECONDS (10-13.0); Protime INR 1.26
[2024-10-24] MEDS ORDERED: KETOROLAC 30 MG/ML INJ ONE (17:00)
[2024-10-24 17:04] LABS: ALT/SGPT 32.0 U/L (13-56); AST/SGOT 17.0 U/L (15-37); Albumin 3.7 g/dL (3.4-5.0); Albumin/Globulin Ratio 0.9 (1.1-1.8); Alkaline Phosphatase 99.0 U/L (45-117); Anion Gap 10.1 mEq/L (5.0-15.0); BUN Blood Urea Nitrogen 10.0 mg/dL (7-18); Bilirubin Indirect, Calculated 0.5 mg/dL (0.2-0.8); Globulin 4.0 g/dL (2.3-3.5); Glucose Level 220.0 mg/dL (74-106); Magnesium 1.5 mg/dL (1.6-2.4); Potassium 3.1 mEq/L (3.5-5.1)
--- NOTE | 2024-10-24 18:16 | RAD REPORT ---
EXAMINATION: Facial Bones W Con Mpr CLINICAL INDICATION: Female, 59 years old. right side facial swelling TECHNIQUE: Axial images were obtained through the facial bones and orbits with intravenous contrast. Sagittal and coronal reconstructions were created from the data. One or more of the following dose reduction techniques were used: Automated exposure control, adjustment of the mA and/or kV according to patient size, and/or iterative reconstruction. Unless otherwise specified, incidental findings do not require dedicated imaging follow-up. [id number]. COMPARISON: No prior exams FINDINGS: SOFT TISSUE: Right facial soft tissue swelling and subcutaneous edema. No abscess identified. BONES: No evidence of fracture, dislocation, or aggressive osseous lesions. No lesion of the visuali zed skull base or calvarium. ORBITS: The globes are intact. No intraorbital hemorrhage or mass. SINUSES: Circumferential thickening in the right maxillary sinus. There is thinning but no kaylene dehi scence of the anterior wall of the right maxillary sinus. Trace left maxillary sinus thickening. BRAIN: No acute abnormalities in the visualized intracranial structures. IMPRESSION: Right facial soft tissue swelling without definite etiology could reflect a cellulitis. No abscess id entified.
[2024-10-24 18:22] LABS: ALT/SGPT 33.0 U/L (13-56); AST/SGOT 17.0 U/L (15-37); Albumin 3.6 g/dL (3.4-5.0); Albumin/Globulin Ratio 0.9 (1.1-1.8); Alkaline Phosphatase 104.0 U/L (45-117); Anion Gap 9.9 mEq/L (5.0-15.0); BUN Blood Urea Nitrogen 11.0 mg/dL (7-18); Globulin 3.8 g/dL (2.3-3.5); Glucose Level 154.0 mg/dL (74-106); NT PRO-BNP 471.0 pg/mL (<125); Potassium 2.9 mEq/L (3.5-5.1); Troponin High Sensitivity 16.4 pg/mL (<58.9)
[2024-10-24] MEDS ORDERED: NA CHLORIDE 0.9% 1,000 ML ONE (18:32)
[2024-10-24] MEDS ORDERED: CLINDAMYCIN 900MG/D5W 900 MG/50 ML IVPB IV ONE (18:32)
--- NOTE | 2024-10-24 18:58 | EDPHYS ---
Physician Documentation [facility] Name: Brandee Rajan Age: 59 yrs Sex: Female : 1965 Arrival Date: 10/24/2024 Time: 15:32 Bed 12 Private MD: ED Physician Gino Lizarraga HPI: 10/24 16:15 This 59 yrs old Female presents to ER via Ambulatory with complaints of Facial cp Swelling, Mouth Problem, Nausea. 16:15 The patient presents with pain. The problem is located in the right upper jaw. cp 16:15 Onset: The symptoms/episode began/occurred last week. Duration: The symptoms are cp continuous, and are steadily getting worse. Associated signs and symptoms: Pertinent positives: dysphagia, pain, right side facial swelling, Pertinent negatives: fever. The patient has been recently seen at the [facility] Emergency Department, yesterday, for similar complaints was given a prescription for antibiotics, pain medication given at visit. patient reports she has not filled prescribed antibiotic from previous visit yesterday. Historical: - Allergies: 16:09 No Known Allergies; ss - PMHx: 16:09 acid reflux; Chronic obstructive lung disease; thyroid; Hypercholesterolemia; diabetes ss mellitus; Arthritis; Hypertensive disorder; Anxiety; - PSHx: 16:09 breast reduction; Cholecystectomy; ss - Immunization history:: Adult Immunizations unknown. - Infectious Disease History:: Denies. - Social history:: Smoking status: Patient reports the use of cigarette tobacco products, smokes one-half pack cigarettes per day. ROS: 16:20 Constitutional: Negative for fever, poor PO intake, cp 16:20 ENT: Positive for dental pain, cp 16:20 Eyes: Negative for injury, pain, redness, and discharge, cp 16:20 Cardiovascular: Negative for chest pain, palpitations, 16:20 Respiratory: Negative for cough, shortness of breath, wheezing, 16:20 Abdomen/GI: Negative for abdominal pain, vomiting, diarrhea, constipation, 16:20 Neuro: Negative for altered mental status, dizziness, headache, numbness, weakness, 16:20 All other systems are negative, Exam: 16:25 Constitutional: The patient appears in no acute distress, alert, awake, cp non-diaphoretic, non-toxic, well developed, well nourished, uncomfortable, overweight 16:25 Head/face: Noted is swelling, that is mild, of the right cheek and right jaw, Sinus cp tenderness, that is mild, is located over the right maxillary sinus, 16:25 Eyes: Pupils: equal, round, and reactive to light and accomodation, Extraocular movements: intact throughout, Conjunctiva: normal, no exudate, no injection, Sclera: no appreciated abnormality, Lids and lashes: appear normal, bilaterally, 16:25 ENT: External ear(s): are unremarkable, Ear canal(s): are normal, clear, TM's: dullness, bilaterally, Nose: is normal, Mouth: Lips: moist, Oral mucosa: moist, Posterior pharynx: Airway: no evidence of obstruction, patent, 16:25 Neck: ROM/movement: limited range of motion, is not appreciated, Meningeal signs: are not present, nuchal rigidity, is not appreciated, 16:25 Chest/axilla: Inspection: normal, 16:25 Cardiovascular: Rate: tachycardic, Rhythm: regular, Edema: is not appreciated, JVD: is not appreciated, 16:25 Respiratory: the patient does not display signs of respiratory distress, Respirations: normal, no use of accessory muscles, no retractions, labored breathing, is not present, Breath sounds: are clear throughout, no decreased breath sounds, no stridor, no wheezing, 16:25 Abdomen/GI: Inspection: abdomen appears normal, Palpation: abdomen is soft and non-tender, in all quadrants, 16:25 Back: pain, is absent, ROM is normal, 16:25 Skin: no rash present. 16:25 Neuro: Orientation: to person, place \T\ time. Mentation: is normal, Cerebellar function: is grossly normal, Motor: moves all fours, strength is normal, Sensation: no obvious gross deficits, 16:55 ECG was reviewed by the Attending Physician. cp Vital Signs: 16:05 BP 119 / 78; Pulse 108; Resp 16; Temp 98.5(O); Pulse Ox 97% on R/A; Weight 97.52 kg; ss Height 5 ft. 4 in. ; Pain 10/10; 17:30 BP 153 / 75; Resp 20; Pulse Ox 98% ; kj2 17:30 Pulse 100; kj2 18:30 BP 137 / 67; Pulse 83; Resp 18; Pulse Ox 100% on R/A; kj2 19:30 BP 138 / 70; Pulse 80; Resp 20; Pulse Ox 98% on R/A; kj2 21:20 BP 154 / 90; Pulse 84; Resp 18; Pulse Ox 100% on R/A; kj2 16:05 Body Mass Index 36.90 (97.52 kg, 162.56 cm) ss 16:05 Pain Scale: Adult ss MDM: 17:00 Differential diagnosis: dental abscess, sepsis, cellulitis. cp 18:30 Post IV fluid administration reassessment for Sepsis: Client not prescribed the 30 cp mL/kg IVF due to: Amount of IVF prescribed: 1000 Sepsis focused reassessment complete. Current vital signs reviewed: Yes. 18:45 Data reviewed: vital signs, nurses notes, lab test result(s), EKG, radiologic studies, cp CT scan. 18:45 Management of patient was discussed with the following: Wrapper Sizer: ENT, kirby Lemos cp consult after discussion of today's test and requests admission to service of hospitalist . I considered the following discharge prescriptions or medication management in the emergency department Medications were administered in the Emergency Department. See MAR. Independent interpretation of the following test(s) in the Emergency Department EKG: See my EKG interpretation above. Care significantly affected by the following chronic conditions: Diabetes, Chronic Obstructive Pulmonary Disease, Obesity. 18:56 Medical Screening Exam initiated cp 19:00 Management of patient was discussed with the following: Hospitalist: Mr Gaxiola kirby cp admit after discussion. 10/24 16:09 Order name: Basic Metabolic Panel; Complete Time: 17:21 10/24 17:21 Interpretation: Normal except: K 3.1; GLUC 220; CRE 1.18; GFR 54. 10/24 16:09 Order name: CBC with Diff; Complete Time: 17:21 10/24 18:21 Interpretation: Normal except: WBC 15.60; RBC 4.91; HERBERTH% 83.4; LYM% 7.8; NEUT A 13.0. 10/24 16:09 Order name: LFT's; Complete Time: 17:21 10/24 16:09 Order name: Magnesium; Complete Time: 17:21 10/24 18:22 Interpretation: Reviewed. 10/24 16:09 Order name: PT-INR; Complete Time: 17:21 10/24 16:09 Order name: Lactate w/ 2H reflex if indic.; Complete Time: 17:21 cp 10/24 17:22 Order name: Ghost Lactate-NO COLLECT Timer EDNY 10/24 17:27 Order name: BNP; Complete Time: 18:23 cp 10/24 17:27 Order name: Blood Culture Adult (2) cp 10/24 17:27 Order name: CMP; Complete Time: 18:23 10/24 18:23 Interpretation: Normal except: K 2.9; GLUC 154; GFR 68; GLOB 3.8; A/G 0.9. 10/24 17:27 Order name: Ptt, Activated; Complete Time: 18:21 cp 10/24 17:27 Order name: Troponin HS; Complete Time: 18:23 10/24 17:27 Order name: UA Rfx Gamal Cult if indicated 10/24 20:50 Order name: Lactate Sepsis 2 HR Follow-up EDNY 10/24 20:54 Order name: Urine Culture EDNY 10/24 21:14 Order name: UA Rfx Gamal Cult if indicated EDNY 10/24 21:14 Order name: CBC with Automated Diff EDMS 10/24 21:14 Order name: CBC with Automated Diff EDMS 10/24 21:14 Order name: CBC with Automated Diff EDMS 10/24 21:14 Order name: CBC with Automated Diff EDMS 10/24 21:14 Order name: Comprehensive Metabolic Panel EDMS 10/24 21:14 Order name: Comprehensive Metabolic Panel EDMS 10/24 21:14 Order name: Comprehensive Metabolic Panel EDMS 10/24 21:14 Order name: Comprehensive Metabolic Panel EDMS 10/24 21:14 Order name: Magnesium EDMS 10/24 21:14 Order name: Magnesium EDMS 10/24 21:14 Order name: Magnesium EDMS 10/24 21:14 Order name: Magnesium EDMS 10/24 16:25 Order name: CT Facial Bones W/ Con \T\ Mpr; Complete Time: 18:21 10/24 18:30 Interpretation: Report reviewed. 10/24 17:27 Order name: Chest Single View XRAY 10/24 16:09 Order name: EKG; Complete Time: 16:10 10/24 16:09 Order name: Cardiac monitoring; Complete Time: 16:51 10/24 16:09 Order name: EKG - Nurse/Tech; Complete Time: 16:51 cp 10/24 16:09 Order name: IV Saline Lock; Complete Time: 16:51 cp 10/24 16:09 Order name: Labs collected and sent; Complete Time: 16:51 cp 10/24 16:09 Order name: O2 Per Protocol; Complete Time: 16:51 cp 10/24 16:09 Order name: O2 Sat Monitoring; Complete Time: 16:51 cp 10/24 17:27 Order name: Accucheck; Complete Time: 21:03 cp 10/24 17:27 Order name: IV Saline Lock - Large Bore; Complete Time: 17:30 cp 10/24 17:27 Order name: Vital Signs; Complete Time: 21:03 cp EC:55 Rate is 87 beats/min. Rhythm is regular. AK interval is normal. QRS interval is normal. cp QT interval is normal. T waves are Inverted in lead aVR. Interpreted by me. Reviewed by me. Administered Medications: 16:49 CANCELLED (Physician Discretion): fentanyl (pf)25 mcg IVP once cp 17:03 Drug: Ketorolac IVP 15 mg IVP once Route: IVP; Site: right antecubital; kj2 22:42 Follow up: Response: No adverse reaction kj2 18:45 Drug: Clindamycin IVPB 900 mg IVPB once over 30 mins; (mix in 50 mL) Route: IVPB; kj2 Infused Over: 30 mins; Site: right antecubital; 20:00 Follow up: IV Status: Completed infusion; IV Intake: 100ml kj2 18:45 Drug: NS 0.9% IV 1000 ml IV at 1 bolus Per protocol; to be given as a bolus over 60 kj2 minutes Route: IV; Rate: 1 bolus; Site: right antecubital; 20:00 Follow up: IV Status: Completed infusion; IV Intake: 1000ml kj2 Disposition: 10/25 20:59 Chart complete. cp Disposition Summary: 10/24/24 18:56 Hospitalization Ordered Notes: Hospitalization Status: Inpatient Admission cp Provider: Brent Gaxiola cp Location: Telemetry/MedSurg (Inpatient) cp Condition: Stable cp Problem: new cp Symptoms: have improved cp Bed/Room Type: Standard Room Assignment: 217(10/24/24 21:13) km Diagnosis - Cellulitis and acute lymphangitis of face cp - Severe sepsis without septic shock cp - Acute sinusitis, unspecified cp Forms: - Medication Reconciliation Form cp - SBAR form cp - Leadership Thank You Letter cp Critical care time excluding procedures: 20:59 Critical care time: Bedside Care: 5 minutes, Consultation: 35 minutes. Total time: 40 cp minutes Addendum: 10/30/2024 07:19 Co-signature as Attending Physician, Gino Lizarraga MD I reviewed the patient's care r n provided by the Advanced Practice Provider and agree with the diagnosis and treatment plan. Signatures: Dispatcher [employer] EDMS Gino Lizarraga MD MD rn Blanchard, Shelby, RN RN ss Page, Corey, PA-C PA-C cp Ludy Arriaga kmf Viviana Luz RN RN kj2 Corrections: (The following items were deleted from the chart) 10/24 16:49 16:33 fentaNYL (PF) IVP 25 mcg IVP once ordered. cp cp 17:29 17:29 UA Rfx Gamal Cult if indicated+U.LAB.BRZ ordered. EDMS EDMS 18:21 17:23 Normal except: WBC 15.60; RBC 4.91. cp cp 21:13 18:56 cp kmf
--- NOTE | 2024-10-24 18:58 | ER ---
Nurse's Notes [facility] Name: Brandee Rajan Age: 59 yrs Sex: Female : 1965 Arrival Date: 10/24/2024 Time: 15:32 Bed 12 Private MD: Diagnosis: Cellulitis and acute lymphangitis of face;Severe sepsis without septic shock;Acute sinusitis, unspecified Presentation: 10/24 16:05 Chief complaint: Patient states: pain and swelling to R side of face since last week. ss Pt was seen in ER last night and given pain medication which reportedly helped and prescribed Clindamycin, but has yet to fill prescription. Coronavirus screen: Client denies travel out of the [place] in the last 14 days. Ebola Screen: Patient denies exposure to infectious person. Patient denies travel to an Ebola-affected area in the 21 days before illness onset. Initial Sepsis Screen: Does the patient meet any 2 criteria? No. Patient's initial sepsis screen is negative. Does the patient have a suspected source of infection? No. Patient's initial sepsis screen is negative. Risk Assessment: Do you want to hurt yourself or someone else? Patient reports no desire to harm self or others. Onset of symptoms was October 23, 2024. 16:05 Method Of Arrival: Ambulatory ss 16:05 Acuity: ONELIA 4 ss Triage Assessment: 16:30 General: Appears in no apparent distress. Behavior is cooperative. Pain: Complains of kj2 pain in right side of face Pain currently is 7 out of 10 on a pain scale. Neuro: Level of Consciousness is awake, alert, obeys commands, Oriented to person, place, time, situation. Cardiovascular: Patient's skin is warm and dry. Respiratory: Airway is patent Respiratory effort is unlabored. GI: No signs and/or symptoms were reported involving the gastrointestinal system. : No signs and/or symptoms were reported regarding the genitourinary system. 16:30 GI: Reports nausea. kj2 Historical: - Allergies: 16:09 No Known Allergies; ss - PMHx: 16:09 acid reflux; Chronic obstructive lung disease; thyroid; Hypercholesterolemia; diabetes ss mellitus; Arthritis; Hypertensive disorder; Anxiety; - PSHx: 16:09 breast reduction; Cholecystectomy; ss - Immunization history:: Adult Immunizations unknown. - Infectious Disease History:: Denies. - Social history:: Smoking status: Patient reports the use of cigarette tobacco products, smokes one-half pack cigarettes per day. Screenin:00 [facility] ED Fall Risk Assessment (Adult) History of falling in the last 3 months, kj2 including since admission No falls in past 3 months (0 pts) Confusion or Disorientation No (0 pts) Intoxicated or Sedated No (0 pts) Impaired Gait No (0 pts) Mobility Assist Device Used No (0 pt) Altered Elimination No (0 pt) Score/Fall Risk Level 0 - 2 = Low Risk Maintained a safe environment, Hourly rounding (assess needs \T\ fall precautionary measures) done. Abuse screen: Denies threats or abuse. Denies injuries from another. Nutritional screening: No deficits noted. Tuberculosis screening: No symptoms or risk factors identified. Assessment: 16:30 General: see triage assessment. kj2 17:30 Reassessment: Patient appears in no apparent distress at this time. Patient and/or kj2 family updated on plan of care and expected duration. Pain level reassessed. Patient is alert, oriented x 3, equal unlabored respirations, skin warm/dry/pink. 18:30 Reassessment: Patient appears in no apparent distress at this time. Patient and/or kj2 family updated on plan of care and expected duration. Pain level reassessed. Patient is alert, oriented x 3, equal unlabored respirations, skin warm/dry/pink. 19:30 Reassessment: Patient appears in no apparent distress at this time. Patient and/or kj2 family updated on plan of care and expected duration. Pain level reassessed. Patient is alert, oriented x 3, equal unlabored respirations, skin warm/dry/pink. 20:30 Reassessment: Patient appears in no apparent distress at this time. Patient and/or kj2 family updated on plan of care and expected duration. Pain level reassessed. Patient is alert, oriented x 3, equal unlabored respirations, skin warm/dry/pink. 21:21 Reassessment: Patient appears in no apparent distress at this time. Patient and/or kj2 family updated on plan of care and expected duration. Pain level reassessed. Patient is alert, oriented x 3, equal unlabored respirations, skin warm/dry/pink. Vital Signs: 16:05 BP 119 / 78; Pulse 108; Resp 16; Temp 98.5(O); Pulse Ox 97% on R/A; Weight 97.52 kg; ss Height 5 ft. 4 in. ; Pain 10/10; 17:30 BP 153 / 75; Resp 20; Pulse Ox 98% ; kj2 17:30 Pulse 100; kj2 18:30 BP 137 / 67; Pulse 83; Resp 18; Pulse Ox 100% on R/A; kj2 19:30 BP 138 / 70; Pulse 80; Resp 20; Pulse Ox 98% on R/A; kj2 21:20 BP 154 / 90; Pulse 84; Resp 18; Pulse Ox 100% on R/A; kj2 16:05 Body Mass Index 36.90 (97.52 kg, 162.56 cm) ss 16:05 Pain Scale: Adult ss ED Course: 15:38 Patient arrived in ED. al6 15:43 Compa Israel PA is PHCP. cp 15:43 Gino Lizarraga MD is Attending Physician. cp 16:09 Triage completed. ss 16:09 Arm band placed on right wrist. ss 16:36 Inserted saline lock: 20 gauge in right antecubital area, using aseptic technique. kj2 Blood collected. Flushed with 10 mL NS. 16:37 Lactate w/ 2H reflex if indic. Sent. kj2 16:58 Viviana Luz, ARTHUR is Primary Nurse. kj2 17:00 Patient has correct armband on for positive identification. Bed in low position. Call kj2 light in reach. Provided Education on: call light. 17:58 CT Facial Bones W/ Con \T\ Mpr In Process Unspecified. EDMS 18:54 Chest Single View XRAY In Process Unspecified. EDMS 18:55 Brent Gaxiola, RN is Hospitalizing Provider. cp 22:38 No provider procedures requiring assistance completed. Patient admitted, IV remains in kj2 place. Administered Medications: 16:49 CANCELLED (Physician Discretion): fentanyl (pf)25 mcg IVP once cp 17:03 Drug: Ketorolac IVP 15 mg IVP once Route: IVP; Site: right antecubital; kj2 22:42 Follow up: Response: No adverse reaction kj2 18:45 Drug: Clindamycin IVPB 900 mg IVPB once over 30 mins; (mix in 50 mL) Route: IVPB; kj2 Infused Over: 30 mins; Site: right antecubital; 20:00 Follow up: IV Status: Completed infusion; IV Intake: 100ml kj2 18:45 Drug: NS 0.9% IV 1000 ml IV at 1 bolus Per protocol; to be given as a bolus over 60 kj2 minutes Route: IV; Rate: 1 bolus; Site: right antecubital; 20:00 Follow up: IV Status: Completed infusion; IV Intake: 1000ml kj2 Medication: 17:18 VIS not applicable for this client. kj2 Intake: 20:00 IV: 1000ml; Total: 1000ml. kj2 20:00 IV: 100ml; Total: 1100ml. kj2 Outcome: 18:56 Decision to Hospitalize by Provider. cp 22:38 Admitted to Med/surg accompanied by tech, via wheelchair, room 217, kj2 22:38 Condition: stable 22:38 Instructed on the need for admit, 22:39 Patient left the ED. kj2 Signatures: Dispatcher [employer] Luda Boothe RN RN Compa Doe, PA-C PA-C Viviana Call RN RN kj2 Chiquita Pappas6
--- NOTE | 2024-10-24 19:00 | RAD REPORT ---
EXAM: Chest Single View HISTORY: 59 years Female right facial swelling COMPARISON: 04/14/2022 FINDINGS: LUNGS/PLEURA: The lungs are clear. No pleural effusions or pneumothorax. No pulmonary edema. CARDIAC/MEDIASTINUM: The cardiac silhouette is within normal limits. UPPER ABDOMEN: No significant abnormality. BONES: No acute abnormality. LINES/TUBES/OTHER: N/A IMPRESSION: No evidence of acute cardiopulmonary disease.
[2024-10-24 20:50] LABS: Sqamous Epithelial 20-50 /HPF (None Seen); Urine Culture Reflex Order REFLEXED; Urine Microscopic Reflex YN ORDER UMIC
[2024-10-24] MEDS ORDERED: ACETAMINOPHEN 325 MG TABLET PO PRN (21:10)
[2024-10-24] MEDS ORDERED: ONDANSETRON 4 MG/2 ML VIAL IV PRN (21:10)
--- NOTE | 2024-10-24 21:14 | P.HP ---
Certification for Inpatient Patient admitted to: Inpatient With expected LOS: >2 Midnights Patient will require the following post-hospital care: None Practitioner: I am a practitioner with admitting privileges, knowledge of patient current condition, hospital course, and medical plan of care. Services: Services provided to patient in accordance with Admission requirements found in Title 42 Section 412.3 of the Code of Federal Regulations Patient History Date of Service: 10/24/24 Reason for admission: Right facial cellulitis, UTI. History of Present Illness: Patient is a 59-year-old female with past medical history of sleep apnea currently uses CPAP at bedtime, hypothyroidism, essential hypertension, GERD, type 2 diabetes mellitus, bone spurs, cholecystitis, who reports to ER complaining of severe pain inside of her right side of her mouth, and pain right jaw. Patient states she started having pain right side of her jaw and inside right side of her mouth on , she states she called and made an appointment to see a dentist, she went to see the dentist on Friday, states she was charged 400 dolllars, states she did not have the money to pay so she did not receive any treatment and she left and went home. States the pain severely worsened on Friday, states she came here in the ER, states she was diagnosed with gingivitis, discharged home on antibiotics clindamycin and pain medication. States she did not have the opportunity to pick up worker the antibiotics yet, states the pain medication was helping, but today she decided to report back to the ER because the pain was increasing worsening, and her right side of her jaw was swollen and painful. Denies of any problem breathing. Patient had a CT facial in ER, with impression: Right facial soft tissue swelling without definite etiology could reflect cellulitis. No abscess identified. According to report received from PA in ER, states he consulted ENT Dr. Hutton, requested patient to be admitted and started on antibiotics and patient will be seen by him in the morning. During admission assessment, patient denies of any chest pain or shortness of breath, right side cellulitis, and assessment of patient inside of her mouth, no airway compromise noted, patient airway is patent. Allergies No Known Allergies Allergy (Verified 01/21/24 14:10) Home Medications: Amlodipine [Norvasc*] 5 mg PO BEDTIME 04/14/22 Buspirone HCl 15 mg PO BID 04/14/22 Gabapentin 300 mg PO BID 04/14/22 Insulin Glargine,Hum.rec.anlog [Toujeo Max Solostar] 50 units SQ DAILY 04/14/22 Levothyroxine [Synthroid*] 0.075 mg PO 0600 04/14/22 Pantoprazole [Protonix Tab*] 40 mg PO DAILY 04/14/22 Varenicline Tartrate 1 mg PO BID 04/14/22 Vortioxetine Hydrobromide [Trintellix] 20 mg PO DAILY 04/14/22 Ibuprofen 800 mg PO BID 12/17/23 Losartan Potassium 100 mg PO DAILY 12/17/23 Multivit-Min/Iron/Folic/Fml738 [Hair, Skin and Nails Tablet] 1 each PO DAILY 12/17/23 Mv-Min/Iron/Folic/Calcium/Vitk [Women's Multivitamin Tablet] 1 each PO DAILY 12/17/23 Aspirin Chewable [Aspirin Chewable*] 81 mg PO DAILY 10/24/24 Metformin HCl [Metformin HCl ER] 750 mg PO BIDWM 10/24/24 Applegate-3/Dha/Epa/Fish Oil [Nuretin Softgel] 4 each PO DAILY 10/24/24 Pravastatin Sodium 20 mg PO DAILY 10/24/24 Tirzepatide [Mounjaro] 15 mg SQ Q7D 10/24/24 Tizanidine HCl 2 mg PO DAILY 10/24/24 clindamycin HCL [Cleocin HCl] 300 mg PO Q6H 10/24/24 - Past Medical/Surgical History Diabetic: Yes -: HTN -: HLD -: Hypothyroidism -: Anxiety/depression -: Diabetes -: Sleep apnea. -: GERD -: Intracranial pressure -: Bone spurs -: Cholecystectomy -: Breast reduction -: Cranial surgery. -: Bone spurs repair. Psychosocial/ Personal History: Patient lives at home with family - Family History Mother -: Diabetes Brother -: Diabetes Father -: Heart disease, Hypertension, Diabetes - Social History Smoking Status: Current every day smoker Alcohol use: Yes CD- Drugs: No Caffeine use: Yes Place of Residence: Home Review of Systems 10-point ROS is otherwise unremarkable ENT: Other (Right facial cellulitis and right sided mouth pain.) Physical Examination - Physical Exam General: Alert, In no apparent distress, Oriented x3 HEENT: Atraumatic, Normocephalic, PERRLA, Mucous membr. moist/pink, Other (Right facial cellulitis, right side mouth pain.), Sclerae nonicteric Neck: Supple, 2+ carotid pulse no bruit, No LAD, Without JVD or thyroid abnormality Respiratory: Clear to auscultation bilaterally, Normal air movement Cardiovascular: No edema, Normal pulses, Regular rate/rhythm, Normal S1 S2, Abnormal S3, No gallops, No rubs, No murmurs Capillary refill: <2 Seconds Gastrointestinal: Normal bowel sounds, Soft and benign, Non-distended, W/out hepatomegaly, No ascites, No tenderness, No masses, No rebound, No guarding Musculoskeletal: No clubbing, No swelling, No contractures, No erythema, No tenderness, No warmth Integumentary: No rashes, No breakdown, No significant lesion, No tenderness/sw elling, No erythema, No warmth, No cyanosis Neurological: Normal gait, Normal speech, Normal strength at 5/5 x4 extr, Normal tone, Sensation intact, Cranial nerves 3-12 intact, Normal reflexes 2+, Normal affect Lymphatics: No axilla or inguinal lymphadenopathy - Studies Laboratory Data (last 24 hrs) 10/24/24 10/24/24 10/24/24 17:45 17:45 16:30 WBC Hgb Hct Plt Count PT 14.1 H INR 1.26 APTT 31.4 Sodium 139 Potassium 2.9 L BUN 11 Creatinine 0.97 Glucose 154 H Magnesium Total Bilirubin 0.8 AST 17 ALT 33 Alkaline Phosphatase 104 10/24/24 10/24/24 16:30 16:30 WBC 15.60 H Hgb 14.9 Hct 43.6 Plt Count 334 PT INR APTT Sodium 139 Potassium 3.1 L BUN 10 Creatinine 1.18 H Glucose 220 H Magnesium 1.5 L Total Bilirubin 0.8 AST 17 ALT 32 Alkaline Phosphatase 99 Female Exam - Breasts Breasts: Normal configuration Assessment and Plan - Plan Patient admitted inpatient with diagnosis of right facial cellulitis and UTI. Patient remains afebrile at this time. No airway compromise noted. (1)Right facial cellulitis/UTI. -Ceftriaxone 2 g IV daily. -Clindamycin 600 mg IV every 8 hours. - consulted when patient was in ER, PA in ER spoke to Dr. Hutton and states he will see patient in morning. -Hydrocodone/acetaminophen 7.5/325 mg 1 p.o. every 4 hours as needed. (2) chronic type 2 diabetes mellitus. - Moderate sliding scale coverage/ACHS. -Held patient metformin x 48 hours at this time because patient use contrast d uring CT procedure. -Resume home insulin Lantus. (3) chronic hypertension. -Continue home medication amlodipine 5 mg p.o. at bedtime. -Continue medical losartan 100 mg p.o. daily. (4) chronic GERD. -Continue home medication Protonix 40 mg p.o. daily. (5) chronic hypothyroidism. -Continue home medication levothyroxine 0.075 mg daily. (6)Explained the entire treatment plan to the patient, solicit questions answered and voiced understanding. Discharge Plan: Home Plan to discharge in: Greater than 2 days - Advance Directives Does patient have a Living Will: No Does patient have a Durable POA for Healthcare: No - Code Status/Comfort Care Code Status Assessed: Yes Code Status: Full Code Critical Care: No Time Spent Managing Pts Care (In Minutes): 55
[2024-10-24] MEDS: Magnesium Sulfate 2gm IVPB 2 G/50 ML BAG IV ONE (22:57)
[2024-10-24] MEDS: NA CHLORIDE 0.9% 1,000 ML IV SCH (22:58)
[2024-10-24 23:06] VITALS: BMI 36.3
[2024-10-24] MEDS: INSULIN REGULAR (HUMAN) 100 UNIT/ML ONE (23:23)
[2024-10-24] MEDS: POTASSIUM 25 MEQ EFFERV TAB PO ONE (23:32)
[2024-10-24] MEDS: HYDROCODONE/APAP 7.5/325 MG TAB PO PRN (23:33)
[2024-10-24] MEDS: INSULIN REGULAR (HUMAN) 100 UNIT/ML SQ SCH (23:40)
[2024-10-25] MEDS: CLINDAMYCIN 600MG/D5W 50 ML IV SCH (00:43)
[2024-10-25] MEDS ORDERED: CLINDAMYCIN INJ 600 MG in NA CHLORIDE 0.9% 50 ML IV SCH (01:00)
[2024-10-25 05:57] LABS: Absolute Lymphocytes (CBC) 2.8 K/uL (0.7-4.9); Hematocrit 36.3 % (36.0-45.0); Hemoglobin 12.7 g/dL (12.0-15.0); MCH 30.6 pg (27.0-35.0); MCHC 34.9 g/dL (32.0-36.0); MCV 87.8 fL (80-100); MPV 9.2 fL (7.6-11.3); Nucleated RBC Absolute Count 0.0 (0-0); Nucleated Red Blood Cells % 0.0 % (0-0); RBC Red Blood Cell Count 4.14 M/uL (3.86-4.86); White Blood Count 13.00 thou/uL (4.3-10.9)
[2024-10-25 06:24] LABS: ALT/SGPT 26.0 U/L (13-56); AST/SGOT 16.0 U/L (15-37); Albumin 3.0 g/dL (3.4-5.0); Albumin/Globulin Ratio 1.0 (1.1-1.8); Alkaline Phosphatase 79.0 U/L (45-117); Anion Gap 7.3 mEq/L (5.0-15.0); BUN Blood Urea Nitrogen 16.0 mg/dL (7-18); Globulin 3.1 g/dL (2.3-3.5); Glucose Level 122.0 mg/dL (74-106); Magnesium 2.5 mg/dL (1.6-2.4); Potassium 3.3 mEq/L (3.5-5.1)
[2024-10-25] MEDS ORDERED: METFORMIN HCL 750 MG PO SCH (08:00)
[2024-10-25] MEDS: INSULIN GLARGINE 100 UNIT/ML SQ SCH (09:00)
[2024-10-25] MEDS ORDERED: HOME MED 1 EA UNK (Insulin Glargine,Hum.Rec.Anlog [Toujeo Max Solostar] 300 UNIT/ML Insuln SQ SCH (09:00)
[2024-10-25] MEDS ORDERED: HOME MED 1 EA UNK (Pravastatin Sodium [Pravastatin Sodium] 20 MG Tablet) PO SCH (09:00)
[2024-10-25] MEDS: CEFTRIAXONE 2,000 MG in NA CHLORIDE 0.9% 100 ML IV SCH (09:21)
[2024-10-25] MEDS: LEVOTHYROXINE SOD 0.075 MG TAB PO SCH (09:22)
[2024-10-25] MEDS: ASPIRIN 81 MG CHEWABLE TABLET PO SCH (09:22)
[2024-10-25] MEDS: LOSARTAN POTASSIUM 50 MG TABLET PO SCH (09:22)
[2024-10-25] MEDS: PANTOPRAZOLE 40MG TABLET PO SCH (09:22)
[2024-10-25] MEDS: GABAPENTIN 300 MG CAP PO SCH (09:22)
[2024-10-25] MEDS: BUSPIRONE HCL 15 MG TABLET PO SCH (09:22)
--- NOTE | 2024-10-25 11:09 | CON ---
Date of Consultation: 10/25/2024 Chief Complaint: Right facial pain and swelling. History Of Present Illness: The patient is a 59-year-old female who developed right facial pain and swelling, which was she believes was radiating from one of her premolar teeth in the right upper maxi lla. She also states that the pain is radiating down into the mandibular molar teeth on the right si de. She was seen by Dentist and discharged home on oral antibiotics, clindamycin, but the pain and s welling worsened despite treatment and she presented to the emergency room on 10/24 and was subsequen tly admitted for IV antibiotics. I was consulted for further evaluation. Upon arrival to bedside, t he patient is in no acute distress, but she does have moderate right cheek swelling and tenderness to palpation of the right cheek. She denies visual disturbance, smell disturbance, recurrent sinus inf ections or recurrent dental or facial abscesses. No other ENT complaints today. Past Medical History: Insulin-dependent diabetes, hypertension, HLD, hypothyroidism, anxiety/depress ion, sleep apnea, GERD, chronic bone spurs, intracranial pressure. Past Surgical History: Repair of bone spurs, cholecystectomy, breast reduction, cranial surgery. Medications: Include amlodipine, buspirone, gabapentin, insulin, levothyroxine, pantoprazole, vareni barahona tartrate, vortioxetine hydrobromide, ibuprofen, losartan, multivitamins, aspirin, metformin, om ega-3 fish oil, pravastatin, tirzepatide, tizanidine, clindamycin. Past Social History: The patient smokes 1 pack per day. Occasional alcohol. No drugs. Review of Systems: Constitutional: Negative for fever, lethargy. Head: Positive for right facial pain and swelling. Ears: Negative for otalgia, otorrhea, and hearing loss. Nose: Negative for exudate, congestion, postnasal drip, obstruction. Oral Cavity/Oropharynx: Positive for right upper maxilla and right lower mandibular gingival tendern ess and swelling. Negative for postnasal drip, sore throat, oropharyngeal pain or swelling. Neck: Negative for neck mass, lymphadenopathy, or thyromegaly. Physical Examination: Vital Signs: Stable. Patient is awake, alert, oriented, no apparent distress. Head: Atraumatic, normocephalic. There is obvious right malar cheek swelling and tenderness to palp ation, but no palpable fluctuant abscess. Eyes: PERRLA/EOMI. Ears: Deferred. Nose: Moist intranasal mucosa. Midline septum. No exudate. Oral Cavity/Throat: Tenderness to palpation of right upper premolar and lower mandibular molar teeth and mild buccal mucosa swelling, but no palpable abscess. No evidence periodontal abscess. Neck: Supple. Trachea midline. Laboratory Data: White blood cell count 15.6. CT scan of maxillofacial structures demonstrates righ t cheek cellulitis, but no obvious abscess or phlegmon. Right maxillary sinus effusion with at least 5 mm of mucosal thickening/effusion, right ostiomeatal complex occlusion with fluid mucosal thickeni ng extending to the right anterior ethmoid sinuses. All other sinuses and mastoid cavities are clear . Diagnoses: 1. Acute right facial cellulitis, no abscess, most likely odontogenic origin. 2. Acute right maxillary and ethmoid sinusitis. Recommendations: 1. Continue IV antibiotics, clindamycin IV. 2. Recommend n.p.o. after midnight in the case that the patient's condition worsens overnight. 3. Once stable, patient may be discharged home on oral antibiotics. 4. Follow up with dentist as soon as possible. LEANDRO/RADHIKA Voice ID: [id number] Report ID: [id number]
[2024-10-25] MEDS: METHYLPREDNISOLONE 40 MG INJ IV SCH (18:00)
[2024-10-25] MEDS: POTASSIUM 25 MEQ EFFERV TAB PO ONE (20:52)
[2024-10-25] MEDS: ATORVASTATIN 10 MG TAB PO SCH (20:53)
[2024-10-25] MEDS: AMLODIPINE 5 MG TAB PO SCH (20:53)
[2024-10-25] MEDS: INSULIN REGULAR (HUMAN) 100 UNIT/ML SQ SCH (21:00)
[2024-10-26] MEDS: ZOLPIDEM TARTRATE 5 MG TABLET PO ONE (01:31)
[2024-10-26 06:20] LABS: Absolute Lymphocytes (CBC) 2.5 K/uL (0.7-4.9); Hematocrit 35.0 % (36.0-45.0); Hemoglobin 12.0 g/dL (12.0-15.0); MCH 30.5 pg (27.0-35.0); MCHC 34.3 g/dL (32.0-36.0); MCV 88.7 fL (80-100); MPV 9.1 fL (7.6-11.3); Nucleated RBC Absolute Count 0.0 (0-0); Nucleated Red Blood Cells % 0.0 % (0-0); RBC Red Blood Cell Count 3.95 M/uL (3.86-4.86); White Blood Count 9.70 thou/uL (4.3-10.9)
[2024-10-26 06:37] LABS: ALT/SGPT 25.0 U/L (13-56); AST/SGOT 13.0 U/L (15-37); Albumin 2.9 g/dL (3.4-5.0); Albumin/Globulin Ratio 0.9 (1.1-1.8); Alkaline Phosphatase 76.0 U/L (45-117); Anion Gap 7.1 mEq/L (5.0-15.0); BUN Blood Urea Nitrogen 9.0 mg/dL (7-18); Globulin 3.1 g/dL (2.3-3.5); Glucose Level 119.0 mg/dL (74-106); Magnesium 1.7 mg/dL (1.6-2.4); Potassium 4.1 mEq/L (3.5-5.1)
[2024-10-26] MEDS: MAGNESIUM SULFATE 1 gm IVPB 1 GM/100 ML BAG IV ONE (06:58)
[2024-10-27] MEDS ORDERED: KETOROLAC 30 MG/ML INJ IV PRN (01:22)
[2024-10-27 05:43] LABS: Absolute Lymphocytes (CBC) 0.7 K/uL (0.7-4.9); Hematocrit 37.3 % (36.0-45.0); Hemoglobin 13.0 g/dL (12.0-15.0); MCH 30.8 pg (27.0-35.0); MCHC 34.8 g/dL (32.0-36.0); MCV 88.6 fL (80-100); MPV 9.0 fL (7.6-11.3); Nucleated RBC Absolute Count 0.0 (0-0); Nucleated Red Blood Cells % 0.0 % (0-0); RBC Red Blood Cell Count 4.21 M/uL (3.86-4.86); White Blood Count 7.60 thou/uL (4.3-10.9)
[2024-10-27 06:01] LABS: ALT/SGPT 31.0 U/L (13-56); AST/SGOT 14.0 U/L (15-37); Albumin 2.9 g/dL (3.4-5.0); Albumin/Globulin Ratio 0.9 (1.1-1.8); Alkaline Phosphatase 76.0 U/L (45-117); Anion Gap 8.3 mEq/L (5.0-15.0); BUN Blood Urea Nitrogen 8.0 mg/dL (7-18); Globulin 3.4 g/dL (2.3-3.5); Glucose Level 246.0 mg/dL (74-106); Magnesium 1.8 mg/dL (1.6-2.4); Potassium 4.3 mEq/L (3.5-5.1)
[2024-10-27] MEDS: LEVOTHYROXINE SOD 0.075 MG TAB PO SCH (06:37)
[2024-10-27 07:33] LABS: Blood Morphology Comment NOT SEEN (NOT SEEN); Differential Total Cells Count 100; Segmented Neutrophils 87 % (40-80)
--- NOTE | 2024-10-27 09:28 | P.PN ---
Date of Service: 10/27/24 ENT Progress Note Patient seen and examined. Patient reports improved right cheek pain and swelling since admission. She denies exudate, difficulty chewing or painful swallowing. Exam reveals resolution of right malar cheek swelling with reappearance of melolabial crease. Soft buccal mucosa and gingiva with no abscess or swelling. No pain with palpation of cheek, buccal mucosa or gingiva. Impression: 1. Acute right facial cellulitis, resolving. 2. Acute right maxillary/ethmoid sinusitis. 3. Chronic dental caries. Plan: 1. Patient is ready to convert to oral antibiotics to cover for sinusitis and cellulitis, recommend Augmentin. 2. Recommend Peridex mouthwash BID until she can get into dentist office. Thank you for this interesting consultation.
[2024-10-27 10:49] VITALS: O2SAT 95
[2024-10-27 12:24] VITALS: BP 150/69; TEMP 98
== END 2024-10-27 13:30 | disposition home or self-care (01) | DRG 603 ==
LOC: ER 15:32 → ERHOLD 21:03 → 2ND 22:25
PROVIDERS: ADMIT Hospitalist; ATTEND Hospitalist
DX: L03.211 Cellulitis of face (principal); L03.212 Acute lymphangitis of face; N39.0 Urinary tract infection, site not specified; E11.9 Type 2 diabetes mellitus without complications; I10 Essential (primary) hypertension; K21.9 Gastro-esophageal reflux disease without esophagitis; E03.9 Hypothyroidism, unspecified; F41.9 Anxiety disorder, unspecified; Z90.49 Acquired absence of other specified parts of digestive tract; Z98.890 Other specified postprocedural states; F17.210 Nicotine dependence, cigarettes, uncomplicated; G47.30 Sleep apnea, unspecified; Z79.4 Long term (current) use of insulin; Z79.890 Hormone replacement therapy; Z79.899 Other long term (current) drug therapy; Z79.82 Long term (current) use of aspirin; Z79.84 Long term (current) use of oral hypoglycemic drugs; Z79.2 Long term (current) use of antibiotics; K13.79 Other lesions of oral mucosa; F32.A Depression, unspecified; J01.00 Acute maxillary sinusitis, unspecified; J01.20 Acute ethmoidal sinusitis, unspecified; K02.9 Dental caries, unspecified
CPT/HCPCS: 36415; 70487; 71045; 76377; 80048; 80053; 80076; 81001; 82947; 83036; 83605; 83735; 83880; 84100; 84484; 85025; 85610; 85730; 87040; 87077; 87086; 87088; 87186; 93005; 94760; 96365; 96375; 99285; J0696; J1815; J2919; J3475; J7030; Q9967